=== PATIENT | female | born 1945 | race Caucasian/White ===

== ENCOUNTER → 2019-01-06 | Outpatient (CLI) | payer MEDICARE, MEDICAID, SELFPAY ==
--- NOTE | 2019-01-06 10:19 | BD_ITS ---
STUDY: DUAL ENERGY X-RAY ABSORPTIOMETRY / DXA REASON FOR EXAM: Female, 73 years old. The patient is postmenopausal. No loss of height. TECHNIQUE: Bone Mineral Density (BMD) measurements of lumbar spine and bilateral hips were obtained. COMPARISON: None. FINDINGS: Lumbar Spine (L1-L4): g/cm2 (1.176) / T-score (0.1) / Z-score (1.8) Findings are suggestive of normal bone density with a low fracture risk. Left Femur Total: g/cm2 (0.631) / T-score (-3.0) / Z-score (-1.3) Left Femoral Neck: g/cm2 (0.626) / T-score (-3.0) / Z-score (-1.1) Right Femur Total: g/cm2 (0.613) / T-score (-3.1) / Z-score (-1.4) Right Femoral Neck: g/cm2 (0.66) / T-score (-2.7) / Z-score (-0.8) BD/Dexa Bone Density Study IMPRESSION: The patient is considered osteoporotic as outlined below according to World Abel Organization (WHO) criteria with a high fracture risk. Reference Information: The T-score is the number of standard deviations above or below the standard which is normal for young adults at their peak bone mineral density. The World Health Organization (WHO) interprets the T-scores as follows: Above -1 Normal bone density Between -1 and -2.5 Osteopenia Equal to / or below -2.5 Osteoporosis As a practical clinical guideline, osteopenia may be graded as follows: Mild -1 through -1.5 Moderate -1.6 through -2.0 Severe -2.1 through -2.4 The Z-score is the number of standard deviations above or below age-matched controls. A Z-score of less than -1.5 would be considered abnormal. References: 1. NIH Osteoporosis and Related Bone Diseases http://www.osteo.org 2. International Society for Clinical Densitometry http://www.iscd.org 3. National Osteoporosis Foundation http://www.nof.org Electronically Signed: Alberto Nieto, at 12:46 EDT , Service support ,
== END | disposition home or self-care (01) ==
LOC: OPBD 10:15
PROVIDERS: Family Provider Internal Medicine; PCP Internal Medicine; Referring Provider Internal Medicine; Visit Provider Internal Medicine
DX: Z78.0 Asymptomatic menopausal state (principal)
CPT/HCPCS: 77080

== ENCOUNTER → 2019-05-18 14:03 | Outpatient (CLI) | payer MEDICARE, MEDICAID, SELFPAY ==
[2019-05-18 15:23] LABS: Mucous, Urine 0 SEEN /hpf (<or=2+)
[2019-05-18 15:46] LABS: Color, Urine Yellow (Yellow); Glucose, Dipstick Normal (Normal); Ketone-Dipstick Negative (Negative); Leukocyte Esterase-Dipstick 25 /ul (Negative); Nitrite-Dipstick Negative (Negative); Occult Blood-Urine 10 /ul (Negative); Protein-Dipstick Negative (Negative); Specific Gravity, Urine 1.015 (1.002-1.030); Urine Bilirubin Dipstick Negative (Negative); Urine Clarity Cloudy (Clear); Urine Urobilinogen Normal (Normal); Urine pH 6.5 (5.0 - 8.0)
[2019-05-18 16:12] LABS: Bacteria RARE /hpf (None Seen); Red Blood Cells-Urine 0-5 SEEN /hpf (0-5); Squamous Epithelial Cells - UA 0-5 SEEN /hpf (5-10); White Blood Cells 25-50 SEEN /hpf (0-5)
== END ==
PROVIDERS: Family Provider Internal Medicine; PCP Internal Medicine; Referring Provider Internal Medicine; Visit Provider Internal Medicine
DX: R82.90 Unspecified abnormal findings in urine (principal)
CPT/HCPCS: 81001; 87077; 87086; 87088; 87186

== ENCOUNTER 2019-08-19 09:58 | Outpatient (RCR) | payer MEDICARE, MEDICAID, SELFPAY ==
[2019-07-29 12:59] VITALS: BMI 23.0
--- NOTE | 2019-08-19 11:31 | HP.PTEVAL_ITS ---
Patient's Visit Information MIK CERVANTES is a 74 year old F referred to Physical Therapy by Thierry Salvador NP-C with a diagnosis of UNSPECIFIED INTELLECTUAL DISABILITIES. Date of Evaluation: 08/19/19 Physical Therapist: Parker Waldrop PT, Cert MDT, [facility] - Visit Plan Frequency: 1 VISIT Plan: RECOMMEND CUSTUM MANUAL TILT BACK W/C WITH HEAD REST,REMOVABLE ARM REST,LATERAL STRAPS,WITH CHEST STRAP FOR TRANSPORT, FOOT PLATE WITH STRAP DUE TO PATIENT DEPENDANT WITH TRANSFERS AND NON AMBULATORY AND CONDITION OF CEREBRAL PALSEY, - Subjective Findings: This 74 y/o female who has cerabral palsey presents to physical therapy for w/c Evaluatiion. [facility] Madeleine. Reccommed w/c due to not fitiing appropriatly and old and never fittied or adjusted. Patient is non verbal. Patient is dependant with self hygine,ADLS ,total dependant with transfers without WB . Patient is non-ambulatory. Patient is self feed. Patient doesnt express any pain.Patient has poor comprehension and unable to communicate. Patient is unable to sit up without dependant assist. Patient sleeps in hospital bed.Patient in w/c 10 -12 hrs /day.Patient has no decubi. SOCIAL: Lives in 6 bed retirement - Objective POSTURE: assymtrical leg length ,pelvis posterior pelvic. TRANSFERS: dependant all levels. BED MOBILITY: dependant. BALANCE : absent sitting/standing. TRUNCK CONTROL: ABSENT. SKIN: INTACT. NEURO: intact. MOBILITY: dependant with w/c. MMT: 0/5 BUE/LE ,but able to move arms/legs small movement. PROM: hip flexion 95 degrees,knee 0-100 degrees flexion,abduction 20degrees. dorsiflexion nuetral,shoulder flexion 100 degrees,elbow WFL - Goals Goal 1:: RECOMMEND CUSTOM MANUAL W/C Goal Time Frame: 1 VISIT - Rehabilitation Potential Physical Therapy Diagnosis: This patient will benifit from custom manual w/c due to w/c not fitting appropriately and is dependant with all level transfers,absent balance ,absent trunk contral and non ambualtory. Rehabilitation Potential: Poor - Anticipated Interventions Patient/Client Instruction: Educate patient on: Condition, Plan of Care For the Purpose of:: Other Other: RECOMMEND CUSTUM MANULA W/C Thank you for the opportunity to evaluate your patient. For Medicare and Medicare HMO plans, please review the plan of care and approve it. It will need to be FAXED BACK to us at [phone] for Medicare purposes. For Medicare only, by signing this I certify the plan of care. Please let me know if there are questions or concerns regarding this plan of care. Physician Signature: Date:
== END 2019-08-19 19:00 | disposition home or self-care (01) ==
LOC: PT 09:58
PROVIDERS: Family Provider Internal Medicine; PCP Internal Medicine; Referring Provider Nurse Practitioner Family; Visit Provider Nurse Practitioner Family
DX: F79 Unspecified intellectual disabilities (principal); R53.81 Other malaise
CPT/HCPCS: 97163

== ENCOUNTER → 2020-02-22 12:20 | Outpatient (CLI) | payer MEDICARE, MEDICAID, SELFPAY ==
[2020-02-08 15:06] VITALS: BMI 23.0
--- NOTE | 2020-02-22 12:32 | BI_ITS ---
MAMMOGRAPHY - BILATERAL SCREENING REASON FOR EXAM: Female, 74 years old. Routine annual screening examination. PERTINENT HISTORY: Non-contributory. TECHNIQUE: Digital bilateral breast paul (3D mammographic acquisition) in the CC and MLO projections. 2-D mediolateral oblique (MLO) and craniocaudad (CC) views of both breasts were obtained. CAD: Full Field Digital Mammography with Computer Added Detection was performed. COMPARISON: Comparison is made with prior study dated December 28, 2018. FINDINGS: Breast Composition: There are scattered areas of fibroglandular density. There are no dominant masses or suspicious calcifications. No other significant abnormalities are identified. There has been no significant change since the prior study. BI/SCREEN MAMM (CAD) W/PAUL BILAT IMPRESSION: Stable bilateral screening mammogram. Yearly follow-up mammogram recommended. (A) ASSESSMENT CATEGORY: BIRADS Category 1: Negative. A letter regarding these results will be sent to the patient by the facility within 30 days. Approximately 10% of breast cancers are not detected by mammography. A normal mammogram should not delay biopsy of a clinically suspicious abnormality. [id number] Electronically Signed: Alberto Nieto, at 13:28 EDT , Service support ,
== END ==
PROVIDERS: PCP Internal Medicine; Referring Provider Nurse Practitioner Family; Visit Provider Nurse Practitioner Family
DX: Z12.31 Encounter for screening mammogram for malignant neoplasm of breast (principal)
CPT/HCPCS: 77063; 77067

== ENCOUNTER → 2020-03-20 17:47 | Outpatient (CLI) | payer MEDICARE, MEDICAID, SELFPAY ==
[2020-02-08 15:06] VITALS: BMI 23.0
[2020-03-20 17:48] LABS: Mucous, Urine 0 SEEN /hpf (<or=2+); Red Blood Cells-Urine 0 SEEN /hpf (0-5); White Blood Cells 0 SEEN /hpf (0-5)
[2020-03-20 18:23] LABS: Color, Urine Yellow (Yellow); Glucose, Dipstick Normal (Normal); Ketone-Dipstick Negative (Negative); Leukocyte Esterase-Dipstick Negative /ul (Negative); Nitrite-Dipstick Negative (Negative); Occult Blood-Urine Negative /ul (Negative); Protein-Dipstick Negative (Negative); Specific Gravity, Urine 1.015 (1.002-1.030); Urine Bilirubin Dipstick Negative (Negative); Urine Clarity Sl. Cloudy (Clear); Urine Urobilinogen Normal (Normal); Urine pH 6.5 (5.0 - 8.0)
[2020-03-20 18:31] LABS: Amorphous Sediment 1+; Bacteria 2+ /hpf (None Seen); Squamous Epithelial Cells - UA 0-5 SEEN /hpf (5-10)
== END ==
PROVIDERS: Nurse Practitioner Family; PCP Internal Medicine; Visit Provider Internal Medicine
DX: R30.0 Dysuria (principal)
CPT/HCPCS: 81001; 87086; 87088

== ENCOUNTER → 2020-12-04 10:26 | Outpatient (CLI) | payer MEDICARE, MEDICAID, SELFPAY ==
[2020-12-04 09:59] VITALS: BMI 23.0
[2020-12-04 12:54] LABS: Absolute Lymphocyte Count 1.38 X10^3/uL (0.83-4.51); Absolute Neutrophil Count 5.4 X10^3/uL (2.0-7.7); Basophil# 0.04 X10^3/uL; Basophil% 0.5 % (0-1); Eosinophil# 0.27 X10^3/uL; Eosinophils% 3.5 % (0-5); Hematocrit 36.9 % (37-47); Hemoglobin 11.9 g/dL (12.0-15.0); Lymphocyte # 1.38 X10^3/ul (0.83-4.51); Mean Corp Hgb Conc 32.2 g/dL (32-36); Mean Corpuscular Hgb 29.8 pg (27.0-32.0); Mean Corpuscular Volume 92.3 fL (81-99); Mean Platelet Vol. 9.9 fl (6.2-12.0); Monocyte# 0.55 X10^3/uL; Monocyte% 7.2 % (0-10); NRBC Flagged by Analyzer 0 % (0-5); Neutrophil # 5.39 X10^3/uL (2.7-7.7); Neutrophil % 70.5 % (47-70); Platelet Count 367 K/mm3 (150-450); RBC Distribution Width CV 13.2 % (11.6-14.6); RBC Distribution Width SD 44.8 fl (35.1-43.9); White Blood Count 7.7 K/mm3 (4.4-11.0)
[2020-12-04 13:22] LABS: ALB/GLOB Ratio 0.8 RATIO (0.9-2.4); AST(SGOT) 17 U/L (15-37); Alanine Aminotransfer ALT/SGPT 31 U/L (13-56); Albumin, Serum 3.2 g/dL (3.2-5.0); Alkaline Phosphatase 85 U/L (45-117); Anion Gap 8 (5-15); BUN 13 mg/dL (7-18); Calcium,Total 8.4 mg/dL (8.5-10.1); Chloride 91 mmol/L (98-107); Creatinine, Serum 0.68 mg/dL (0.55-1.02); EST Glomerular Filtration Rate 89 mL/min (>60); Est Glom Filt Rate - Afr Amer 107 mL/min (>60); Glucose 150 mg/dL (74-106); Potassium 3.7 mmol/L (3.5-5.1); Protein, Total 7.2 g/dL (6.4-8.2); Sodium Level 127 mmol/L (136-145); Thyroid Stim Hormone (TSH) 1.31 uIU/mL (0.358-3.74)
[2020-12-04 13:26] LABS: Hemoglobin A1c 5.6 % (3.8-5.6)
== END ==
PROVIDERS: PCP Internal Medicine; Referring Provider Internal Medicine; Visit Provider Internal Medicine
DX: E11.9 Type 2 diabetes mellitus without complications (principal); I10 Essential (primary) hypertension
CPT/HCPCS: 36415; 80053; 83036; 84443; 85025

== ENCOUNTER → 2021-02-22 08:33 | Outpatient (CLI) | payer MEDICARE, MEDICAID, SELFPAY ==
[2020-12-04 09:59] VITALS: BMI 23.0
--- NOTE | 2021-02-22 08:50 | BI_ITS ---
MAMMOGRAPHY - BILATERAL SCREENING REASON FOR EXAM: Female, 75 years old. Routine annual screening examination. PERTINENT HISTORY: Non-contributory. TECHNIQUE: Digital bilateral breast paul (3D mammographic acquisition) in the CC and MLO projections. 2-D mediolateral oblique (MLO) and craniocaudad (CC) views of both breasts were obtained. CAD: Full Field Digital Mammography with Computer Added Detection was performed. COMPARISON: Comparison is made with prior study dated 02/22/2020. FINDINGS: Breast Composition: There are scattered areas of fibroglandular density. There are no dominant masses or suspicious calcifications. No other significant abnormalities are identified. There has been no significant change since the prior study. BI/SCRN MAMM (CAD)W/PAUL BILAT IMPRESSION: Stable bilateral screening mammogram. Yearly follow-up mammogram recommended. (A) ASSESSMENT CATEGORY: BIRADS Category 1: Negative. A letter regarding these results will be sent to the patient by the facility within 30 days. Approximately 10% of breast cancers are not detected by mammography. A normal mammogram should not delay biopsy of a clinically suspicious abnormality. [id number] Electronically Signed: Alberto Nieto MD at 9:39 EDT , Service support ,
== END ==
PROVIDERS: PCP Internal Medicine; Referring Provider Internal Medicine; Visit Provider Internal Medicine
DX: Z12.31 Encounter for screening mammogram for malignant neoplasm of breast (principal)
CPT/HCPCS: 77063; 77067

== ENCOUNTER → 2021-06-04 10:14 | Outpatient (CLI) | payer MEDICARE, MEDICAID, SELFPAY ==
[2021-06-04 12:17] LABS: Absolute Lymphocyte Count 2.71 X10^3/uL (0.83-4.51); Basophil# 0.05 X10^3/uL; Basophil% 0.5 % (0-1); Eosinophil# 0.45 X10^3/uL; Eosinophils% 4.5 % (0-5); Hematocrit 39.7 % (37-47); Hemoglobin 12.2 g/dL (12.0-15.0); Lymphocyte # 2.71 X10^3/ul (0.83-4.51); Lymphocyte % 27.2 % (19-41); Mean Corp Hgb Conc 30.7 g/dL (32-36); Mean Corpuscular Hgb 30.3 pg (27.0-32.0); Mean Corpuscular Volume 98.8 fL (81-99); Mean Platelet Vol. 9.9 fl (6.2-12.0); Monocyte# 0.69 X10^3/uL; Monocyte% 6.9 % (0-10); NRBC Flagged by Analyzer 0 % (0-5); Neutrophil # 6.02 X10^3/uL (2.7-7.7); Neutrophil % 60.6 % (47-70); Platelet Count 369 K/mm3 (150-450); RBC Distribution Width CV 13.2 % (11.6-14.6); RBC Distribution Width SD 48.7 fl (35.1-43.9); Red Blood Count 4.02 M/mm3 (4.2-5.4)
[2021-06-04 12:36] LABS: Vitamin D,25 Hydroxy 29.3 ng/mL
[2021-06-04 12:40] LABS: ALB/GLOB Ratio 0.7 RATIO (0.9-2.4); AST(SGOT) 17 U/L (15-37); Alanine Aminotransfer ALT/SGPT 31 U/L (13-56); Alkaline Phosphatase 91 U/L (45-117); Anion Gap 8 (5-15); BUN 21 mg/dL (7-18); BUN/Creat Ratio 26.8 RATIO (10-20); Calcium,Total 9.3 mg/dL (8.5-10.1); Chloride 98 mmol/L (98-107); Creatinine, Serum 0.78 mg/dL (0.55-1.02); EST Glomerular Filtration Rate 76 mL/min (>60); Est Glom Filt Rate - Afr Amer 92 mL/min (>60); Globulin 4.5 g/dL (2.2-4.2); Glucose 82 mg/dL (74-106); Potassium 4.3 mmol/L (3.5-5.1); Protein, Total 7.5 g/dL (6.4-8.2); Sodium Level 135 mmol/L (136-145); Thyroid Stim Hormone (TSH) 1.36 uIU/mL (0.358-3.74)
== END ==
PROVIDERS: PCP Internal Medicine; Referring Provider Internal Medicine; Visit Provider Internal Medicine
DX: I10 Essential (primary) hypertension (principal); E03.9 Hypothyroidism, unspecified; E55.9 Vitamin D deficiency, unspecified
CPT/HCPCS: 36415; 80053; 82306; 84443; 85025

== ENCOUNTER → 2022-01-07 | Outpatient (CLI) | payer MEDICARE, MEDICAID, SELFPAY ==
[2022-01-07 12:30] LABS: Absolute Lymphocyte Count 2.36 X10^3/uL (0.83-4.51); Absolute Neutrophil Count 5.3 X10^3/uL (2.0-7.7); Basophil# 0.05 X10^3/uL; Basophil% 0.6 % (0-1); Eosinophil# 0.58 X10^3/uL; Eosinophils% 6.5 % (0-5); Hematocrit 37.1 % (37-47); Hemoglobin 11.8 g/dL (12.0-15.0); Lymphocyte # 2.36 X10^3/ul (0.83-4.51); Lymphocyte % 26.6 % (19-41); Mean Corp Hgb Conc 31.8 g/dL (32-36); Mean Corpuscular Volume 97.4 fL (81-99); Mean Platelet Vol. 10.3 fl (6.2-12.0); Monocyte# 0.56 X10^3/uL; Monocyte% 6.3 % (0-10); NRBC Flagged by Analyzer 0 % (0-5); Neutrophil # 5.31 X10^3/uL (2.7-7.7); Neutrophil % 59.8 % (47-70); Platelet Count 339 K/mm3 (150-450); RBC Distribution Width CV 13.2 % (11.6-14.6); RBC Distribution Width SD 46.8 fl (35.1-43.9); Red Blood Count 3.81 M/mm3 (4.2-5.4); White Blood Count 8.9 K/mm3 (4.4-11.0)
[2022-01-07 12:40] LABS: Vitamin D,25 Hydroxy 33.4 ng/mL
[2022-01-07 12:53] LABS: ALB/GLOB Ratio 0.7 RATIO (0.9-2.4); AST(SGOT) 22 U/L (15-37); Alanine Aminotransfer ALT/SGPT 36 U/L (13-56); Albumin, Serum 2.9 g/dL (3.2-5.0); Alkaline Phosphatase 89 U/L (45-117); Anion Gap 9 (5-15); BUN 31 mg/dL (7-18); BUN/Creat Ratio 33.2 RATIO (10-20); Calcium,Total 8.8 mg/dL (8.5-10.1); Chloride 101 mmol/L (98-107); Creatinine, Serum 0.94 mg/dL (0.55-1.02); EST Glomerular Filtration Rate 62 mL/min (>60); Est Glom Filt Rate - Afr Amer 75 mL/min (>60); Globulin 4.2 g/dL (2.2-4.2); Glucose 177 mg/dL (74-106); Potassium 4.2 mmol/L (3.5-5.1); Protein, Total 7.1 g/dL (6.4-8.2); Sodium Level 137 mmol/L (136-145); Thyroid Stim Hormone (TSH) 1.25 uIU/mL (0.358-3.74)
== END | disposition home or self-care (01) ==
LOC: BIMLAB 10:29
PROVIDERS: PCP Internal Medicine; Visit Provider Internal Medicine
DX: E03.9 Hypothyroidism, unspecified (principal); E11.9 Type 2 diabetes mellitus without complications; I10 Essential (primary) hypertension; M81.0 Age-related osteoporosis without current pathological fracture
CPT/HCPCS: 36415; 80053; 82306; 84443; 85025

== ENCOUNTER → 2022-02-25 | Outpatient (CLI) | payer MEDICARE, MEDICAID, SELFPAY ==
--- NOTE | 2022-02-25 10:06 | BI_ITS ---
MAMMOGRAPHY - BILATERAL SCREENING REASON FOR EXAM: Female, 76 years old. Routine annual screening examination. PERTINENT HISTORY: Non-contributory. TECHNIQUE: Digital bilateral breast paul (3D mammographic acquisition) in the CC and MLO projections. 2-D mediolateral oblique (MLO) and craniocaudad (CC) views of both breasts were obtained. CAD: Full Field Digital Mammography with Computer Added Detection was performed. COMPARISON: Comparison is made with prior study dated 02/22/2021 and 02/22/2020. FINDINGS: Breast Composition: There are scattered areas of fibroglandular density. There are no dominant masses or suspicious calcifications. No other significant abnormalities are identified. There has been no significant change since the prior study. BI/SCRN MAMM (CAD)W/PAUL BILAT IMPRESSION: Stable bilateral screening mammogram. Yearly follow-up mammogram recommended. (A) ASSESSMENT CATEGORY: BIRADS Category 1: Negative. A letter regarding these results will be sent to the patient by the facility within 30 days. Approximately 10% of breast cancers are not detected by mammography. A normal mammogram should not delay biopsy of a clinically suspicious abnormality. [id number] Electronically Signed: Alberto Nieto MD at 11:14 EDT ,
--- NOTE | 2022-02-25 10:07 | BD_ITS ---
STUDY: DUAL ENERGY X-RAY ABSORPTIOMETRY / DXA REASON FOR EXAM: Female, 76 years old. OSteoporosis TECHNIQUE: Bone Mineral Density (BMD) measurements of both forearms were obtained. Limited positioning due to the patient''s limitation in positioning. COMPARISON: Comparison is made with prior examination dated 01/06/2019. FINDINGS: Right Forearm: g/cm2 (0.563) / T-score (-0.3) / Z-score (2.5) Left Forearm: g/cm2 (0.535) / T-score (-0.8) / Z-score (1.9) BD/Dexa Bone Density/Append Skel IMPRESSION: The patient is considered normal as outlined below according to World Abel Organization (WHO) criteria with a low fracture risk. Reference Information: The T-score is the number of standard deviations above or below the standard which is normal for young adults at their peak bone mineral density. The World Health Organization (WHO) interprets the T-scores as follows: Above -1 Normal bone density Between -1 and -2.5 Osteopenia Equal to / or below -2.5 Osteoporosis As a practical clinical guideline, osteopenia may be graded as follows: Mild -1 through -1.5 Moderate -1.6 through -2.0 Severe -2.1 through -2.4 The Z-score is the number of standard deviations above or below age-matched controls. A Z-score of less than -1.5 would be considered abnormal. References: 1. NIH Osteoporosis and Related Bone Diseases www osteo.org 2. International Society for Clinical Densitometry www iscd.org 3. National Osteoporosis Foundation www nof.org Electronically Signed: Alberto Nieto MD at 12:24 EDT ,
== END | disposition home or self-care (01) ==
LOC: OPBD 10:03
PROVIDERS: PCP Internal Medicine; Visit Provider Internal Medicine
DX: Z12.31 Encounter for screening mammogram for malignant neoplasm of breast (principal); M81.0 Age-related osteoporosis without current pathological fracture
CPT/HCPCS: 77063; 77067; 77081

== ENCOUNTER → 2022-05-20 | Outpatient (CLI) | payer MEDICARE, MEDICAID, SELFPAY ==
[2022-05-20 15:10] LABS: Absolute Lymphocyte Count 2.34 X10^3/uL (0.83-4.51); Absolute Neutrophil Count 5.3 X10^3/uL (2.0-7.7); Basophil# 0.04 X10^3/uL; Basophil% 0.5 % (0-1); Eosinophil# 0.44 X10^3/uL; Hematocrit 40.8 % (37-47); Hemoglobin 12.7 g/dL (12.0-15.0); Lymphocyte # 2.34 X10^3/ul (0.83-4.51); Lymphocyte % 26.7 % (19-41); Mean Corp Hgb Conc 31.1 g/dL (32-36); Mean Corpuscular Hgb 31.1 pg (27.0-32.0); Mean Corpuscular Volume 99.8 fL (81-99); Mean Platelet Vol. 10.7 fl (6.2-12.0); Monocyte# 0.62 X10^3/uL; Monocyte% 7.1 % (0-10); NRBC Flagged by Analyzer 0 % (0-5); Neutrophil # 5.29 X10^3/uL (2.7-7.7); Neutrophil % 60.4 % (47-70); Platelet Count 306 K/mm3 (150-450); RBC Distribution Width CV 13.2 % (11.6-14.6); RBC Distribution Width SD 48.8 fl (35.1-43.9); Red Blood Count 4.09 M/mm3 (4.2-5.4); White Blood Count 8.8 K/mm3 (4.4-11.0)
[2022-05-20 19:40] LABS: ALB/GLOB Ratio 0.7 RATIO (0.9-2.4); AST(SGOT) 24 U/L (15-37); Alanine Aminotransfer ALT/SGPT 34 U/L (13-56); Albumin, Serum 3.1 g/dL (3.2-5.0); Alkaline Phosphatase 89 U/L (45-117); Anion Gap 11 (5-15); BUN 27 mg/dL (7-18); BUN/Creat Ratio 31.4 RATIO (10-20); Calcium,Total 9.8 mg/dL (8.5-10.1); Chloride 102 mmol/L (98-107); Creatinine, Serum 0.86 mg/dL (0.55-1.02); EST Glomerular Filtration Rate 68 mL/min (>60); Est Glom Filt Rate - Afr Amer 82 mL/min (>60); Globulin 4.2 g/dL (2.2-4.2); Glucose 144 mg/dL (74-106); Potassium 4.5 mmol/L (3.5-5.1); Protein, Total 7.3 g/dL (6.4-8.2); Sodium Level 138 mmol/L (136-145)
[2022-05-20 20:42] LABS: Hemoglobin A1c 6.6 % (3.8-5.6)
== END | disposition home or self-care (01) ==
LOC: BIMLAB 11:39
PROVIDERS: PCP Internal Medicine; Visit Provider Internal Medicine
DX: I10 Essential (primary) hypertension (principal); E11.9 Type 2 diabetes mellitus without complications; E03.9 Hypothyroidism, unspecified; M81.0 Age-related osteoporosis without current pathological fracture
CPT/HCPCS: 36415; 80053; 83036; 85025

== ENCOUNTER → 2022-05-22 | Outpatient (CLI) | payer MEDICARE, MEDICAID, SELFPAY ==
[2022-05-22 16:07] LABS: Vitamin D,25 Hydroxy 44.3 ng/mL
[2022-05-22 16:13] LABS: Thyroid Stim Hormone (TSH) 1.21 uIU/mL (0.358-3.74)
== END | disposition home or self-care (01) ==
LOC: BIMLAB 14:17
PROVIDERS: PCP Internal Medicine; Visit Provider Internal Medicine
DX: E03.9 Hypothyroidism, unspecified (principal); E55.9 Vitamin D deficiency, unspecified
CPT/HCPCS: 82306; 84443

== ENCOUNTER → 2022-08-15 | Outpatient (CLI) | payer MEDICARE, MEDICAID, SELFPAY | END | disposition home or self-care (01) | LOC: LABSPEC 11:32 | PROVIDERS: PCP Internal Medicine; Referring Provider Physician Assistant; Visit Provider Physician Assistant | DX: R05.9 Cough, unspecified (principal); R41.82 Altered mental status, unspecified | CPT/HCPCS: 87635; U0003; U0005 ==

== ENCOUNTER → 2022-11-26 | Outpatient (CLI) | payer MEDICARE, MEDICAID, SELFPAY ==
[2022-11-26 12:43] LABS: Hematocrit 33.3 % (37-47); Hemoglobin 11.1 g/dL (12.0-15.0); Mean Corp Hgb Conc 33.3 g/dL (32-36); Mean Corpuscular Hgb 31.8 pg (27.0-32.0); Mean Corpuscular Volume 95.4 fL (81-99); Mean Platelet Vol. 9.8 fl (6.2-12.0); Platelet Count 344 K/mm3 (150-450); RBC Distribution Width CV 13.8 % (11.6-14.6); Red Blood Count 3.49 M/mm3 (4.2-5.4); White Blood Count 8.6 K/mm3 (4.4-11.0)
[2022-11-26 13:16] LABS: Vitamin B12 1533 pg/mL (211-911)
[2022-11-26 13:34] LABS: Carbamazepine (Tegretol) 7.5 ug/mL (4.0-12.0)
[2022-11-26 13:53] LABS: ALB/GLOB Ratio 0.7 RATIO (0.9-2.4); AST(SGOT) 23 U/L (15-37); Alanine Aminotransfer ALT/SGPT 37 U/L (13-56); Albumin, Serum 2.8 g/dL (3.2-5.0); Alkaline Phosphatase 91 U/L (45-117); Anion Gap 6 (5-15); BUN 11 mg/dL (7-18); BUN/Creat Ratio 17.6 RATIO (10-20); Calcium,Total 8.5 mg/dL (8.5-10.1); Chloride 96 mmol/L (98-107); Creatinine, Serum 0.63 mg/dL (0.55-1.02); EST Glomerular Filtration Rate 98 mL/min (>60); Est Glom Filt Rate - Afr Amer 118 mL/min (>60); Globulin 3.8 g/dL (2.2-4.2); Glucose 237 mg/dL (74-106); Potassium 3.7 mmol/L (3.5-5.1); Protein, Total 6.6 g/dL (6.4-8.2); Sodium Level 130 mmol/L (136-145); Thyroid Stim Hormone (TSH) 1.17 uIU/mL (0.358-3.74)
[2022-11-28 19:07] LABS: HEPATITIS B SURFACE AG Negative (Negative); Hep C Antibodies Non Reactive (Non Reactive); Hepatitis A IgM Antibody Negative (Negative); Hepatitis B Core AB IgM Negative (Negative); Vitamin B1, Thiamine 156.5 nmol/L (66.5-200.0)
[2022-11-30 16:07] LABS: Vitamin D 1,25-Dihydroxy <5.0 pg/mL (24.8-81.5)
== END | disposition home or self-care (01) ==
LOC: BIMLAB 10:53
PROVIDERS: PCP Internal Medicine; Referring Provider Psychiatry & Neurology Neurology; Visit Provider Psychiatry & Neurology Neurology
DX: G80.9 Cerebral palsy, unspecified (principal); G40.909 Epilepsy, unspecified, not intractable, without status epilepticus; B18.1 Chronic viral hepatitis B without delta-agent; I10 Essential (primary) hypertension; E55.9 Vitamin D deficiency, unspecified
CPT/HCPCS: 36415; 80053; 80074; 80156; 82140; 82607; 82652; 82746; 84425; 84439; 84443; 85027

== ENCOUNTER → 2022-12-29 | Outpatient (CLI) | payer MEDICARE, MEDICAID, SELFPAY | END | disposition home or self-care (01) | LOC: PSN 08:32 | PROVIDERS: PCP Internal Medicine; Referring Provider Psychiatry & Neurology Neurology; Visit Provider Psychiatry & Neurology Neurology | DX: G40.909 Epilepsy, unspecified, not intractable, without status epilepticus (principal) | CPT/HCPCS: 95819 ==

== ENCOUNTER → 2023-02-27 | Outpatient (CLI) | payer MEDICARE, MEDICAID, SELFPAY ==
--- NOTE | 2023-02-27 10:09 | BI_ITS ---
MAMMOGRAPHY - BILATERAL SCREENING 3-D TOMOSYNTHESIS REASON FOR EXAM: Female, 77 years old. Breast Cancer Screening PERTINENT HISTORY: No significant family history. TECHNIQUE: 2-D mammograms and 3-D Tomosynthesis of the breast (s) were performed. CAD was performed. COMPARISON: 02/25/2022 FINDINGS: The breast composition is composed of scattered fibroglandular density. Scattered benign calcifications are seen. No dense spiculated masses or suspicious microcalcifications are identified. No architectural distortion is identified. There is no skin thickening or retraction. There has been no significant change since the prior study. BI/SCRN MAMM (CAD)W/PAUL BILAT IMPRESSION: No mammographic signs of malignancy. Routine yearly mammograms recommended. ASSESSMENT CATEGORY: BIRADS Category 2: Benign. A letter regarding these results will be sent to the patient by the facility within 30 days. FOLLOW UP RECOMMENDATION: Yearly follow up mammogram recommended. (A) Approximately 10% of breast cancers are not detected by mammography. A normal mammogram should not delay biopsy of a clinically suspicious abnormality. Electronically Signed: Nikita Mcwilliams MD at 12:50 EDT ,
== END | disposition home or self-care (01) ==
PROVIDERS: PCP Internal Medicine; Referring Provider Internal Medicine; Visit Provider Internal Medicine
DX: Z12.31 Encounter for screening mammogram for malignant neoplasm of breast (principal)
CPT/HCPCS: 77063; 77067

== ENCOUNTER 2024-03-16 08:02 | Outpatient (RCR) | payer MEDICARE, MEDICAID, SELFPAY ==
[2024-03-16 08:10] VITALS: BP 127/58; PULSE 108; RESP 18; TEMP 36.1
--- NOTE | 2024-03-16 11:51 | PCM.WC.HP ---
History of Present Illness Date of Service: 03/16/24 Chief Complaint: Follow-up on left ischium History of Wound: 78-year-old white female nonverbal with CP, chronically gets open areas on her left ischium and left sacral back area. At this point they are closed but they have been using Neosporin ointment and Telfa pads on her. She lives in a long term with 5 other residents. Skin is very supple and she is in good condition. They states she does not eat well but is taking supplements at this time. These open areas happen on and off and they just need some direction how to take care of it. [facility] Medical History Flu vaccine need Osteoporosis Health care maintenance Weight loss, non-intentional Decubitus skin ulcer Hyponatremia Hypothyroidism history of chemical labotomy Anxiety Profound intellectual disabilities Unspecified mood [affective] disorder Cerebral palsy Vitamin deficiency Vision problems Thyroid disease Seizures Hypertension H/O emotional problems Diabetes Cataracts, bilateral Home Medications ?Medication ?Instructions ?Recorded ?Last Taken ?Type acetaminophen 325 mg tablet 650 mg PO Q6H PRN fever or pain 12/21/18 Unknown History bisacodyl 10 mg rectal suppository 10 mg CA DAILY PRN constipation 12/21/18 Unknown History pen needle, diabetic 31 gauge x #200 ea 08/05/21 Unknown Rx 10/23 (Comfort EZ Pen [place]) metformin 500 mg tablet,extended 500 mg PO QPM #90 tabs 01/07/22 Unknown Rx release 24hr (osmotic) multivitamin 1 tab PO DAILY #90 tabs 01/17/22 Unknown Rx lisinopril 30 mg tablet See Rx Instructions .Route 04/08/22 Unknown Rx .COMPLEX #30 tabs lovastatin 20 mg tablet See Rx Instructions .Route 04/08/22 Unknown Rx .COMPLEX #30 tabs levothyroxine 50 mcg capsule 50 mcg PO DAILY #90 caps 07/14/22 Unknown Rx mecobalamin (vitamin B12) 1,000 1,000 mcg sublingual DAILY #90 tabs 07/14/22 Unknown Rx mcg disintegrating tablet,sublingual aripiprazole 10 mg tablet 10 mg PO QHS #90 tabs 08/05/22 Unknown Rx alendronate 70 mg tablet (Fosamax) 70 mg PO QWEEK #14 tabs 01/24/23 Unknown Rx docusate sodium 100 mg capsule 100 mg PO DAILY #90 caps 09/03/22 Unknown Rx (Colace) amino acids-protein hydrolysate 15 ml PO DAILY 02/22/24 Unknown History gram-72 kcal/30 mL oral liquid calcium carb-vit D3-minerals 600 1 tab PO BID 02/22/24 Unknown History mg calcium-400 unit tablet carbamazepine 100 mg chewable 100 mg PO DAILY #30 tabs 02/22/24 Unknown Rx tablet diazepam 2 mg tablet 1 mg PO QDAY agitation 02/22/24 Unknown History ergocalciferol (vitamin D2) 1,250 1,250 mcg PO 2XW #8 caps 02/22/24 Unknown Rx mcg (50,000 unit) capsule guaifenesin 100 mg/5 mL oral liquid 200 mg PO Q4H PRN congestion 02/22/24 Unknown History lamotrigine 25 mg disintegrating 50 mg (2 x 25 mg) PO BID #120 tabs 02/22/24 Unknown Rx tablet melatonin 10 mg capsule 10 mg PO HS 02/22/24 Unknown History Allergy/AdvReac Type Severity Reaction Status Date / Time Penicillins Allergy Unknown unknown Verified 03/16/24 08:31 ampicillin Allergy Unknown Verified 03/16/24 08:31 Family History Other Family history unknown Surgical History No history of previous surgery Social History Smoking Status: Never smoker second hand exposure: No alcohol intake: never substance use type: does not use what type of physical activity do you participate in: none seatbelt use: always ROS Constitutional Constitutional: Reports systems reviewed and no addt'l complaints, except as documented Eyes Eyes: Reports systems reviewed and no addt'l complaints, except as documented ENT HEENT: Reports systems reviewed and no addt'l complaints, except as documented Cardiovascular Cardiovascular: Reports systems reviewed and no addt'l complaints, except as documented Respiratory/Chest Respiratory/Chest: Reports systems reviewed and no addt'l complaints, except as documented Gastrointestinal Gastrointestinal: Reports systems reviewed and no addt'l complaints, except as documented Genitourinary Genitourinary: Reports systems reviewed and no addt'l complaints, except as documented Musculoskeletal Musculoskeletal: Reports systems reviewed and no addt'l complaints, except as documented Integumentary Integumentary: Reports systems reviewed and no addt'l complaints, except as documented and other Details: Chronic areas on left ischium and left lower sacral area that open and close. Neurologic Neurologic: Reports systems reviewed and no addt'l complaints, except as documented Psychiatric Psychiatric: Reports systems reviewed and no addt'l complaints, except as documented Endocrine Endocrinology: Reports systems reviewed and no addt'l complaints, except as documented Hematologic/Lymphatic Hematologic/Lymphatic: Reports systems reviewed and no addt'l complaints, except as documented Allergic/Immunologic Allergic/Immunologic: Reports systems reviewed and no addt'l complaints, except as documented Vital Signs Vital Signs Vital Signs: 03/16/24 08:10 Temperature 97 F L Temperature Source Temporal Pulse Rate 108 H Respiratory Rate 18 Blood Pressure 127/58 H Blood Pressure Mean 81 Blood Pressure Source Monitor Weight Weight: 107 lb 14.314 oz Physical Exam Const oriented x3 General Appearance: cooperative Exam Limitations: no limitations HEENT normocephalic Head and Scalp: normal to inspection Neck full ROM Resp normal respiratory effort Effort and Inspection: able to speak in complete sentences Auscultation: clear to auscultation bilaterally Cardio regular rate and regular rhythm Palpation: normal PMI Rate: regular rate Rhythm: regular rhythm GI Palpation: soft and no hepatosplenomegaly Back/Spine Cervical Spine: cervical ROM normal Thoracic Spine / Upper Back: normal to inspection Lumbar Spine / Lower Back: normal to inspection Extremity normal to inspection General Extremity: normal exam except as noted Skin no rashes or lesions noted Neuro oriented x3 Psych Appearance: grossly normal Speech: normal speech Thought Content: normal thought content Judgement: judgement good Debridement Note Debridement Note No debridement was completed: No debridement was completed today Post-Debridement Measurements and Additional Note: Post-Debridement Measurements/Treatment - Nurse 1 - General Ulcer Assessment Start: 03/16/24 08:10 Freq: Status: Active Protocol: BERNADETTE Activity Type Activity Date Activity User E-sign Co-sign Detail Recorded Client Recorded Date Recorded By Document 03/16/24 08:10 DL [email or web address] 03/16/24 08:28 DL 03/16/24 08:10 - Today's Visit Information Type of service Initial Visit Arrival Mode Wheelchair Transfer Assistance Manual Transfer Assist (Other) x2 Patient Identification Verified (Name & Yes ) Height and Weight Weight 107 lb 14.314 oz Weight in Pounds 107.9 lbs Vital Signs Temperature (97.8 F-99.1 F) 97 F L Temperature Source Temporal Pulse Rate (60-100) 108 H Pulse Location Monitor Respiratory Rate (12-18) 18 Respiratory rate source Observation Blood Pressure (90/60-120/80) 127/58 H Blood Pressure Mean 81 Source Monitor Pain Scale: 0-10 Numeric Is Patient Pain Free? Yes Communication Assessment Preferred language [place] Able to Read No Able to Write No Caregiver Communication Skills Unable To Impairment Follow Commands Right Hearing Abillity Normal Left Hearing Abillity Normal Visual Assistive Devices None Teaching Assessment Barriers to Learning Unable to Comprehend Readiness To Learn Poor Willingness to Engage in Self Management Low Activies Readiness to Engage in Self Management Low Activities Anxiety Level Calm Cooperation Cooperative Perception Confused Interest in Health Problem Uninterested Smoking Status Never smoker Is Patient Diabetic Yes Functional Assessment List Device(s) with Patient WC Bound, No Verbal Culture/Zoroastrian/Employee Relations Administrator Cultural/Zoroastrian Needs that may affect No Treatment Plan Would you allow our hospital order packer or packager to No meet you for the purpose of spiritual/ emotional support? Employee Relations Administrator to contact place of yazidism No WC - Nurse 1 - General Ulcer Measurement Start: 03/16/24 08:10 Freq: Status: Active Protocol: Activity Type Activity Date Activity User E-sign Co-sign Detail Recorded Client Recorded Date Recorded By Document 03/16/24 08:10 DL [email or web address] 03/16/24 08:28 DL 03/16/24 08:10 Wound Center Nurse 1 #1 L Ischial -Current Size (cm) - Length 0.1 -Current Size (cm) - Width 0.1 -Current Size (cm) - Depth 0.1 -Total Square Cm 0.01 -Photo Taken Yes -Classification - Thickness Partial Thickness -Exudate Amt None Present -Wound Margin Flat & Intact -Granulation Amt Large (67-100%) -Granulation Quality [place] -Necrosis Amt None Present (0 %) -Structure Exposed N/A -Texture (Sophie-wound Skin Appearance) Scarring -Ulcer Cleansing Rinsed/ Irrigated with Saline -Foul Odor after Cleansing No WC - Nurse 2 - General Ulcer CM Notes Start: 03/16/24 08:10 Freq: Status: Active Protocol: Activity Type Activity Date Activity User E-sign Co-sign Detail Recorded Client Recorded Date Recorded By Document 03/16/24 08:49 DS 1 03/16/24 08:50 DS 03/16/24 08:49 Wound Center Nurse 2 -Time 08:49 -Wound/Ulcer Outcome Healed- Epithelialized Pain Scale: 0-10 Numeric Is Patient Pain Free? Yes WC - Nurse 3 - General Ulcer D/C NN Start: 03/16/24 08:10 Freq: Status: Active Protocol: Activity Type Activity Date Activity User E-sign Co-sign Detail Recorded Client Recorded Date Recorded By Document 03/16/24 08:57 DS 1 03/16/24 08:57 DS 03/16/24 08:57 Wound Care Center Nurse 3 #1 L Ischial -Primary Dressing Applied Mepilex Border -Mepilex Border 1 Pain Scale: 0-10 Numeric Is Patient Pain Free? Yes WC - Visit Discharge Discharge Condition Stable Ambulatory Status Wheelchair Transportation Private Auto Medication Reconcilliation completed & Yes provided to patient/care provider Clinical Summary of Care Provided Yes Assessment/Plan Assessment/Plan (1) Left ischial pressure sore: CODE(S): L89.329 - Pressure ulcer of left buttock, unspecified stage QUALIFIERS: Pressure injury stage: stage 1 Qualified Code(s): L89.321 - Pressure ulcer of left buttock, stage 1 PLAN: May use the A&E ointment on when there is no open area otherwise other suggestions was to pad and protect with an absorbent dressing when she is up and around to protect the skin and may use the A&E ointment at night and leave her diaper free. Any more open areas call us return otherwise patient is discharged from the wound center (2) Cerebral palsy: CODE(S): G80.9 - Cerebral palsy, unspecified QUALIFIERS: Cerebral palsy type: spastic quadriplegic Qualified Code(s): G80.0 - Spastic quadriplegic cerebral palsy
--- NOTE | 2024-03-31 09:17 | WC ---
PHOTO 03/16/24 LEFT BUTTOCK(I)
== END 2024-03-16 13:58 | disposition home or self-care (01) ==
LOC: WC 08:02
PROVIDERS: PCP Internal Medicine; Referring Provider Internal Medicine; Visit Provider Nurse Practitioner
DX: L89.321 Pressure ulcer of left buttock, stage 1 (principal); G80.9 Cerebral palsy, unspecified; E11.9 Type 2 diabetes mellitus without complications; I10 Essential (primary) hypertension; E03.9 Hypothyroidism, unspecified; M81.0 Age-related osteoporosis without current pathological fracture; Z79.83 Long term (current) use of bisphosphonates; Z79.84 Long term (current) use of oral hypoglycemic drugs; Z79.890 Hormone replacement therapy; Z79.899 Other long term (current) drug therapy
CPT/HCPCS: 99212; G0463

== ENCOUNTER 2025-03-18 14:00 | Emergency (ER) | payer MEDICARE, MEDICAID, SELFPAY ==
--- OUTSIDE RECORDS SUMMARY | 2025-03-18 14:39 | XMS RPT_ITS | CCD ---
Author Organization [facility] CliniSyne Care Team Providers Care Chief Technician X Ray Name Role Phone Luis Daniel James Unavailable Unavailable Unavailable Unavailable Unavailable Luis Daniel James Primary Care Provider Luis Daniel Miner Admitting Unavailable Luis Daniel James Attending Unavailable Luis Daniel James Admitting Unavailable Luis Daniel James Attending Unavailable Luis Daniel James Admitting Unavailable Luis Daniel James Attending Unavailable Luis Daniel James Primary Care Provider Goldie Mobley Primary Care Provide r Goldie Mobley MD Primary Care Prov ider Goldie Mobley MD Primary Care Provider [phone] Dr. Goldie Mobley Primary Care Provider [phone] Dr. Goldie Mobley Attending Provider [phone] Dr. Goldie Mobley Referring Provider [phone] Pending Provider Unavailable Unavailable Goldie Mobley MD Primary Care Prov ider Dr. Goldie Mobley Primary Care Provider [phone]) Dr. Goldie Mobley Attending Provider [phone] Dr. Goldie Mobley Referring Provider [phone] Free, Text Entry Unavailable Unavailable Félix Cartwright Unavailable Dr. Goldie Mobley Primary Care Provider [phone] Dr. Goldie Mobley Attending Provider [phone] Dr. Alana Mobleybe Referring Provider [phone] BALDEMAR Olivares Attending Provider Unavailab Goldie Menchaca MD Primary Care Provider [phone] Itz, Dr. Candelario Primary Care Provider [phone] Itz, Dr. Candelario Referring Provider [phone] BALDEMAR Olivares Attending Provider Unavailab Dr. Cedrick Navas Attending Provider Dr. Goldie Mobley Attending Provider [phone] Itz, Dr. Candelario Primary Care Provider [phone] Itz, Dr. Candelario Referring Provider [phone] Thierry Salvador Attending Unavailable Pending, Provider Primary Care Unavailable Al Tenisha Delgadillo, Dr. Murphy Admitting Unava ilable Akil Delgadillo, Dr. Murphy Referring Unava ilable Pending, Provider Primary Care Unavailable CARISA, DO CORKY ELIZAEBTH Attending Unava ilable Pending, Provider Primary Care Unavailable Dr. Lazaro Handy Attending Unavailabl gio Mobely MD, Goldie Baxter Primary Care Prov ider Oberhauser DO, Shanda L Primary Care Provider Oberhauser DO, Shanda L Primary Care Provider Oberhauser DO, Shanda L Primary Care Provider [phone] GOLDIE MOBLEY Primary Care Unav ailable IRMA VICTORIA Attending Unavail able Oberhauser DO, Shanda L Primary Care Provider Oberhauser DO, Shanda L Unavailable [phone] Prosper CAN, Mansi Unavailable Unavailable OBERHAUSER, SHANDA L Primary Care Unavailable OBERHAUSER, SHANDA L Primary Care Unavailable OBERHAUSER, SHANDA L Primary Care Unavailable OBERHAUSER, SHANDA L Primary Care Unavailable OBERHAUSER, SHANDA L Primary Care Unavailable OBERHAUSER, SHANDA L Primary Care Unavailable Kip DO, Tremayne R. Primary Care Provider [phone] Donald Hernandez MD Unavailable KIP, TREMAYNE R. Admitting Unavailable DHAVAL SHELTON L Attending Unavailable KIP, TREMAYNE R. Referring Unavailable KIP, TREMAYNE R. Primary Care Unavailable KIP, TREMAYNE R. Primary Care Unavailable KIP, TREMAYNE R. Admitting Unavailable BILLY DHAVAL L Attending Unavailable KIP, TREMAYNE R. Referring Unavailable Kip DO, Tremayne Primary Care Provider COOPERRIDER II, BONI H Attending Unavailabl e COOPERRIDER II, BONI H Referring Unavailabl e KIP, TREMAYNE Primary Care Unavailable Oberhauser DO, Shanda L Unavailable Mansi Cheng RN Unavailable TANA YAN Attending Unavailable OBERHAUSER, SHANDA L Primary Care Unavailable TANA YAN Attending Unavailable OBERHAUSER, SHANDA L Primary Care Unavailable TANA YAN Attending Unavailable OBERHAUSER, SHANDA L Primary Care Unavailable OBERHAUSER, SHANDA L Attending Unavailable OBERHAUSER, SHANDA L Primary Care Unavailable OBERHAUSER, SHANDA L Attending Unavailable OBERHAUSER, SHANDA L Referring Unavailable OBERHAUSER, SHANDA L Primary Care Unavailable OBERHAUSER, SHANDA L Attending Unavailable OBERHAUSER, SHANDA L Referring Unavailable OBERHAUSER, SHANDA L Primary Care Unavailable TANA YAN Attending Unavailable OBERHAUSER, SHANDA L Primary Care Unavailable CLARA JONES Attending Unavailable Kip DO, Tremayne Primary Care Provider CLARA JONES Attending Unavailable CLARA JONES Referring Unavailable KIP, TREMAYNE Primary Care Unavailable OBERHAUSER, SHANDA L Primary Care Unavailable ARMANDO, HAFIZ A Admitting Unavailable ARMANDO, HAFIZ A Attending Unavailable FÉLIX CARTWRIGHT Consulting Unavailable OBERHAUSER, SHANDA L Primary Care Unavailable ARMANDO, HAFIZ A Admitting Unavailable ARMANDO, HAFIZ A Attending Unavailable NISSA HAAS Consulting Unavailable Itz VILLALOBOS, Dr. Candelario Referring Provider [phone] Dr. Cedrick Alejo MD Attending Provider Dr. Shanda Huizar DO Primary Care Provider Cedrick Alejo Attending Unavailable Oleghe, Efewongbe Primary Care Unavailable Oleghe, Efewongbe Referring Unavailable Oleghe, Efewongbe Referring Unavailable Oberhauser, Shanda Primary Care Unavailable Cedrick Alejo Attending Unavailable Maurice OLEARY, Nayeli Attending Unavailable Oberhauser, Shanda Primary Care Unavailable Oberhauser, Shanda Referring Unavailable KAYKAY BESS Attending Unavailab le OLEGHE, EFEWONGBE SAHIL Primary Care Unav ailable KIP, TREMAYNE R. Attending Unavailable KIP, TREMAYNE R. Primary Care Unavailable KIP, TREMAYNE R. Primary Care Unavailable KIP, TREMAYNE R. Attending Unavailable KIP, TREMAYNE R. Attending Unavailable KIP, TREMAYNE R. Primary Care Unavailable CECILY JR., SOTO Attending Unavailable OLEGHE, EFEWONGBE SAHIL Primary Care Unav ailable KIP, TREMAYNE R. Attending Unavailable KIP, TREMAYNE R. Primary Care Unavailable KIP, TREMAYNE R. Attending Unavailable KIP, TREMAYNE R. Primary Care Unavailable CECILY JR., SOTO Attending Unavailable KIP, TREMAYNE R. Primary Care Unavailable KIP, TREMAYNE R. Attending Unavailable KPI, TREMAYNE R. Primary Care Unavailable KIP, TREMAYNE R. Attending Unavailable KIP, TREMAYNE R. Primary Care Unavailable CECILY JR., SOTO Attending Unavailable KIP, TREMAYNE R. Primary Care Unavailable CECILY JR., SOTO Attending Unavailable OLEGHE, EFEWONGBE SAHIL Primary Care Unav ailable Provider, Ed Physician Emergency Provider Unavai lable Allergies Allergy Classification Reported Allergen(s) Allergy Type Date of Onset Reaction(s) Facility Penicillins (antibiotic) (2 sources) Ampicillin Drug Allergy 6 [facility] (20 sources) ampicillin; Translations: [AMPICILLIN] Propensity to adverse reactions to drug 5 Unknown [facility] Work Phone: (20 sources) Penicillins; Translations: [PENICILLINS] Propensity to adverse reactions to drug 5 unknown [facility] Work Phone: (1 source) Penicillins Drug Allergy 5 Unknown [facility] (16 sources) Penicillins Propensity to adverse reactions to drug 5 Unknown [facility] (20 sources) Amoxicillin; Translations: [AMOXICILLIN] Drug Allergy [address] [facility] (20 sources) Penicillin; Translations: [PENICILLIN] Drug Allergy [address] [facility] (20 sources) Lisinopril; Translations: [LISINOPRIL] Drug Allergy 5 [facility] Work Phone: (10 sources) Penicillins Propensity to adverse reactions to drug 5 Unknown [facility] (1 source) Ampicillin Drug Allergy 5 [facility] (1 source) Lisinopril Drug Allergy 5 [facility] (1 source) Penicillins Drug allergy (disorder) 5 [facility] Medications Current Medications Medication Drug Class(es) Dates Sig (Normalized) Sig (Original) acetaminophen (20 sources) Start: 08-30-2024 take 1 tablet by mouth every four hours as needed acetaminophen (Tylenol) tablet 650 mg Start: 08-30-2024 take 1 tablet by isabell every four hours as needed acetaminophen (Tylenol) tablet 650 mg Start: 04-18-2024 take 1 tablet by isabell every four hours as needed acetaminophen (Tylenol) tablet 650 mg Start: 12-21-2018 take 2 tablets by mo ut every six hours as needed for pain Acetaminophen 325 mg tablet Active 650 mg PO EVERY 6 HOURS as needed for fever or pain December 21, 2018 12:00am Start: 12-21-2018 take 650 mg by mouth every six hours Acetaminophen Active 650 MG PO EVERY 6 HOURS December 21, 2018 12:00am acetaminophen (T YLENOL) 650 MG suppository Insert into the rectum every 4 (four) hours as needed for fever or pain INSERT 1 SUPPOSITORY RECTALLY EVERY 4 HOURS NEEDED FOR FEVER >38 C OR MODERATE PAIN . Active take 2 tablets by mo uth every four hours as needed for fever acetaminophen (TYLENOL) 325 MG tablet Take 2 (two) tablets (650 mg total) by mouth every 4 (four) hours as needed for fever 2 TABS = 650 MG BY MOUTH EVERY 4 HOURS NEEDED FEVER *MAY GIVE SUPP IF TAB NOT GIVEN* . Active take 1 tablet by isabell th every four hours as needed acetaminophen (TYLENOL) 325 MG tablet Take 1 (one) tablet (325 mg total) by mouth every 4 (four) hours as needed . Active take 325 mg by mouth every four hours as needed acetaminophen (TYLENOL) 325 mg/10.15 mL soln Take 325 mg by mouth every 4 hours as needed. Active ACETAMINOPHEN RE CTAL by RECTAL route. Active End: 07-16-2023 acetaminophen (Tylenol 8 Rolando r) 650 mg ER tablet Take 325 mg by mouth every 6 hours if needed. 0 07/16/2023 Discontinued (Therapy completed) take 325 mg by mouth every six hours as needed Tylenol 8 Hour ; 325 milligram(s) orally every 6 hours, As Needed Quantity: 0 Refills: 0 Ordered: 09-Aug-2022 Rosangela Hernandez Generic Substitution Allowed ACETAMINOPHEN RE CTAL by RECTAL route. 0 Active Comment on above: Take 325 mg by mouth every 4 hours as needed. by RECTAL route. Take 650 mg by mouth every 6 hours as needed. acyclovir 0.05 mg/mg topical ointment (16 sources) Herpesvirus Nucleoside Analog DNA Polymerase Inhibitor, Herpes Simplex Virus Nucleoside Analog DNA Polymerase Inhibitor, Herpes Zoster Virus Nucleoside Analog DNA Polymerase Inhibitor Start: 09-06-2024 End: 09-10-2024 acyclovir (Zovirax) 5 % ointment Indications: HSV infection Apply 1 Application topically 5 times a day for 4 days. Space applications every 3 hours. 5 g 09/06/2024 09/10/2024 Active acyclovir (ZOVIR AX) 5 % ointment Apply topically 6 (six) times a day . Active albuterol 0.83 mg/ml inhalation solution (17 sources) beta2-Adrenergic Agonist Start: 10-25-2024 take 1 dose by inhalation every four hours as needed for wheezing albuterol (PROVENTIL) 2.5 mg /3 mL (0.083 %) nebulizer solution INHALE 1 VIAL USING NEBULIZER EVERY FOUR HOURS NEEDED FOR WHEEZING 10/25/2024 Active Start: 06-13-2019 End: 07-29-2019 take 2.5 mg by inhalation every four hours as needed for wheezing Albuterol Sulfate 2.5 mg /3 mL (0.083 %) solution for nebulization Discontinued 2.5 mg INHALATION Q4H as needed for shortness of breath or wheezing 75 0 June 13, 2019 1:00am July 29, 2019 1:58pm take 2.5 mg by inhal ation every four hours as needed for wheezing albuterol (PROVENTIL) 2.5 mg/3 mL (0.083 %) nebulizer solution Take 3 mL (2.5 mg) by nebulization every 4 (four) hours as needed for wheezing. INHALE 1 VIAL USING NEBULIZER EVERY 4 HOURS NEEDED FOR WHEEZING Active albuterol 2.5 mg /3 mL (0.083 %) nebulizer solution Take 3 mL (2.5 mg) by nebulization. Active albuterol 0.833 mg/ml / ipratropium bromide 0.167 mg/ml inhalation solution (1 source) Anticholinergic, beta2-Adrenergic Agonist Start: 08-30-2024 take 3 mL by inhalation every six hours as needed 3 mL, nebulization, Every 6 hours PRN, wheezing, Starting on Thu08/30/24 at 1330 alendronic acid 70 mg oral tablet (20 sources) Bisphosphonate Start: 02-24-2024 End: 02-07-2025 alendronate (FOSAMAX) 70 MG tablet 1 (one) tablet (70 mg total) by Per G Tube route every 7 days GIVE 1 TABLET BY PEG EVERY WEEK *30 MIN BEFORE 1ST FOOD/GAMAL/MED; AVOID LYING DOWN X30 MIN AFTER . 12 tablet 3 02/07/2025 Active Start: 02-24-2024 alendronate (F OSAMAX) 70 MG tablet Take 1 (one) tablet (70 mg total) by mouth every 7 days . 02/24/2024 Active Start: 01-06-2019 End: 09-02-2022 take 1 tablet by mouth every week Alendronate (Fosamax) 70 mg tablet Discontinued 70 mg PO EVERY WEEK 14 March 13, 2022 8:00am September 02, 2022 10:49am End: 10-06-2024 take 75 mL by mouth in the morning alendronate (FOSAMAX) 70 mg/75 mL solution Take 75 mL (70 mg total) by mouth every 7 days Take in the morning with a full glass of water, on an empty stomach, and do not take anything else by mouth or lie down for the next 30 min. . 10/06/2024 Discontinued alendronate (Fos amax) 70 mg tablet Take 1 tablet (70 mg) by mouth every 7 days. Active take 70 mg by mouth in the morning alendronate (FOSAMAX) 70 mg/75 mL solution Take 70 mg by mouth every 7 days Take in the morning with a full glass of water, on an empty stomach, and do not take anything else by mouth or lie down for the next 30 min. . 0 Active Comment on above: Take 70 mg by mouth once each week. Amino Acids-Protein Hydrolys 15-72 gram-kcal/30 mL liquid (2 sources) Start: 02-22-20 Amino Acids-Protein Hydrolys 15-72 gram-kcal/30 mL liquid Active mL PO DAILY February 22, 2024 12:00am 30cc daily amLODIPine 5 mg oral tablet (20 sources) Dihydropyridine Calcium Channel Nena Start: 12-28-19 take 2 tablets by mouth once daily amLODIPine (NORVASC) 5 MG tablet Indications: Primary hypertension Take 2 (two) tablets (10 mg total) by mouth daily . 90 tablet 3 12/27/2024 Active Start: 10-03-2016 End: 11-16-2025 take 1 tablet by mouth once daily amLODIPine (NORVASC) 5 MG tablet Indications: Primary hypertension Take 1 (one) tablet (5 mg total) by mouth daily . 90 tablet 3 12/21/2024 12/27/2024 Discontinued (Reorder (Suppress CancelRx Message to Pharmacy)) AMLODIPINE BESYL ATE (AMLODIPINE ORAL) Take by mouth. Active AMLODIPINE BESYL ATE (AMLODIPINE ORAL) Take by mouth. 0 Active Comment on above: Take by mouth. ARIPiprazole 10 mg oral tablet (20 sources) Atypical Antipsychotic Start: 08-30-2024 take 10 mg by mouth once daily 10 mg, oral, Nightly, First dose on Thu08/30/24 at 2099 Start: 04-19-2024 take 10 mg by mouth once daily 10 mg, oral, Nightly, First dose on Thu04/19/24 at 2099 Start: 02-18-2021 End: 11-16-2024 take 1 tablet by mouth at bedtime Aripiprazole 10 mg tablet Discontinued 10 mg PO AT BEDTIME 90 2 March 25, 2022 2:46pm July 30, 2022 2:23pm Start: 12-23-2019 End: 02-18-2021 take 1 tablet by mouth at bedtime Aripiprazole (Abilify) 15 mg tablet Discontinued 15 mg PO AT BEDTIME 60 2 October 23, 2020 8:46am February 18, 2021 1:04pm Start: 12-21-2018 End: 12-23-2019 take 1 tablet by mouth once daily Aripiprazole 20 mg tablet Discontinued 20 mg PO DAILY December 21, 2018 12:00am December 23, 2019 4:15pm take 0.5 tablet by m outh once daily ARIPiprazole (ABILIFY) 20 MG tablet Take 0.5 (one-half) tablet (10 mg total) by mouth daily . Active take 10 mg by mouth once daily A RIPiprazole (ABILIFY) 20 MG tablet Take 10 mg by mouth daily . 0 Active Comment on above: Take 20 mg by mouth once daily. Take 20 mg by mouth. benoxinate hydrochloride 4 mg/ml / fluorescein sodium 3 mg/ml ophthalmic solution (4 sources) Diagnostic Dye Start: 11-23-2024 End: 11-23-2024 fluorescein-benoxi argelia 0.3-0.4 % 1 drop (FLURESS) Start: 11-23-2024 End: 11-23-2024 1 drop, BOTH EYES, DIRECT ED, Starting on Thu11/23/24 at 1000, Until Thu11/23/24 at 2159, Administer for applanation tonometry. In the event of a Fluress shortage, administer [place]-Fluor 1 drop into both eyes as directed for applanation tonometry Start: 11-18-2023 End: 11-18-2023 fluorescein-benoxinate 0.3-0 .4 % 1 Drop (FLURESS) Start: 11-07-2021 End: 11-07-2021 fluorescein-benoxinate 0.25- 0.4 % 1 Drop (FLURESS) bisacodyl 10 mg rectal suppository (20 sources) Stimulant Laxative Start: 12-21-2018 Bisacodyl 1 0 mg suppository Active 10 mg RC DAILY as needed for constipation December 21, 2018 12:00am bisacodyl 10 mg rectal suppository ; rectal every 48 hours, As Needed Quantity: 0 Refills: 0 Ordered: 09-Aug-2022 Rosangela Hernandez Generic Substitution Allowed Comment on above: 10 mg by RECTAL rout e once daily as needed. calcium carbonate 1500 mg / cholecalciferol 0.01 mg oral tablet (20 sources) Vitamin D Start: 12-22-2024 calcium carbonate-vitamin D3 (Calcium with Vitamin D) 600 mg-10 mcg (400 unit) per tablet 1 (one) tablet by Per G Tube route 2 (two) times a day . 180 tablet 3 12/22/2024 Active Start: 02-22-2024 Calcium Carbon ate-Vit D3-Min 600 mg calcium- 400 unit tablet Active 1 {tbl} PO TWICE A DAY February 22, 2024 12:00am Start: 12-22-2023 End: 09-01-2024 take 1 tablet by mouth twice daily in the evening calcium carbonate-vitamin D3 600 mg-10 mcg (400 unit) tablet Indications: Healthcare maintenance Take 1 tablet by mouth 2 times a day. 180 tablet 3 08/15/2024 1:47 PM EST 12/22/2023 09/01/2024 Discontinued (Therapy completed) Start: 06-06-2021 End: 01-21-2022 Calcium Carbonate-Vitamin D3 (Oyster Shell Calcium-Vit D3) 500 mg-5 mcg (200 unit) tablet Discontinued 1 {tbl} PO TWICE A DAY 90 3 November 12, 2021 4:27pm January 21, 2022 4:22pm calcium-vitamin D (OS-EMEKA +D) 500 mg(1,250mg) -200 unit per tablet 1 (one) tablet by Per G Tube route 2 (two) times a day TAKE 1 TABLET BY PEG TUBE TWICE DAILY . Active calcium-vitamin D (OS-EMEKA +D) 500 mg(1,250mg) -200 unit per tablet take by Oral route. Active take 1 tablet by isabell th twice daily calcium carbonate-vitamin D3 600 mg-10 mcg (400 unit) tablet Take 1 tablet by mouth 2 times a day. Active Calcium Carbonate / vitamin D3 (7 sources) CALCIUM CARBONAT E/VITAMIN D3 (CALCIUM + D ORAL) Take by mouth. Active CALCIUM CARBONAT E/VITAMIN D3 (CALCIUM + D ORAL) Take by mouth. 0 Active Comment on above: Take by mouth. calcium chloride 0.0014 meq/ml / potassium chloride 0.004 meq/ml / sodium chloride 0.103 meq/ml / sodium lactate 0.028 meq/ml injectable solution (3 sources) Start: End: take 100 mL intravenously every hour 100 mL/hr, intravenous, Continuous, Starting on Thu12/26/24 at 0700, For 1 day, Preprocedure Start: 04-22-2024 End: 04-22-2024 intravenous, Continuous PRN, Starting on Thu04/22/24 at 0802, Anesthesia Intraprocedure Start: 10-05-2023 End: 10-06-2023 lactated Ringer's infusion carBAMazepine 100 mg chewable tablet (20 sources) Mood Stabilizer, Anti-epileptic Agent Start: 08-30-2024 take 100 mg by mouth once daily 100 mg, oral, Daily, First dose on Thu08/30/24 at 1215 Start: 04-19-2024 take 100 mg by mouth once daily 100 mg, oral, Nightly, First dose on Thu04/19/24 at 2100 Start: 06-11-2023 End: 01-31-2025 take 1 tablet by mouth once daily Carbamazepine 100 mg tablet,chewable Active 100 mg PO DAILY 30 January 31, 2025 12:39pm Start: 09-30-2017 End: 06-11-2023 take 1 tablet by mouth twice daily Carbamazepine 100 mg tablet,chewable Discontinued 100 mg PO TWICE A DAY 180 September 03, 2022 1:19pm April 08, 2023 1:28pm carBAMazepine (T EGretol) 100 mg chewable tablet 1 (one) tablet (100 mg total) by Per G Tube route daily GIVE 1 TABLET BY PEG TUBE ONCE DAILY FOR SEIZURES . Active take 1 tablet by isabell th every twelve hours carBAMazepine (TEGretol) 100 mg chewable tablet Chew 1 tablet (100 mg) every 12 hours. 0 Active cyanocobalamin, vitamin B-12 , (VITAMIN B-12 INJECTION) (7 sources) cyanocobalamin, vitamin B-12, (VITAMIN B-12 INJECTION) by INJECTION(UNSPECIFIED PARENTERAL ROUTES) route. Active cyanocobalamin, vitamin B-12, (VITAMIN B-12 INJECTION) by INJECTION(UNSPECIFIED PARENTERAL ROUTES) route. 0 Active Comment on above: by INJECTION(UNSPECI FIED PARENTERAL ROUTES) route. Daily-Catarina, with folic acid, 400 mcg tablet (3 sources) Start: 07-14-2023 Daily-Catarina, with folic acid, 400 mcg tablet 07/14/2023 Active Start: 07-14-2023 Daily-Catarina, wi th folic acid, 400 mcg tablet diazePAM 2 mg oral tablet (20 sources) Benzodiazepine Start: 01-17-2025 take 0.5 tablet by mouth once daily diazePAM (VALIUM) 2 MG tablet Indications: Nonintractable epilepsy without status epilepticus, unspecified epilepsy type (HCC) Take 0.5 (one-half) tablet (1 mg total) by mouth daily . 15 tablet 2 01/17/2025 Active Start: 08-30-2024 2.5 mg, g-tube , Daily, First dose on Thu08/30/24 at 1215 Start: 02-22-2024 take 1 mg by mouth once daily Diazepam 2 mg tablet Active 1 mg PO daily February 22, 2024 11:57am Intellectual disability Unspecified intellectual disabilities agitation Start: 03-25-2022 End: 02-22-2024 take 1 mg by mouth twice daily Diazepam 2 mg tablet Di scontinued 1 mg PO TWICE A DAY 60 0 May 06, 2022 1:28pm February 22, 2024 12:09pm Intellectual disability Unspecified intellectual disabilities agitation Start: 03-25-2022 End: 05-06-2022 take 1 mg by mouth twice daily Diazepam Discontinued 1 MG PO TWICE A DAY 60 March 31, 2022 4:10pm May 06, 2022 1:29pm Start: 12-21-2018 End: 03-25-2022 take 1 mg by mouth once daily as needed Diazepam 2 mg tablet Discontinued 1 mg PO DAILY as needed December 21, 2018 12:00am June 13, 2019 11:54am Start: 12-21-2018 End: 03-25-2022 take 2 mg by mouth at bedtime Diazepam Discontinued 2 MG PO AT BEDTIME December 21, 2018 12:00am March 25, 2022 2:47pm Start: 12-21-2018 End: 06-13-2019 take 1 mg by mouth once daily Diazepam Discontinued 1 MG PO DAILY December 21, 2018 12:00am June 13, 2019 11:54am Start: 11-18-2013 End: 10-20-2024 take 0.5 tablet by mouth once daily diazePAM (VALIUM) 2 MG tablet Indications: Nonintractable epilepsy without status epilepticus, unspecified epilepsy type (HCC) Take 0.5 (one-half) tablet (1 mg total) by mouth daily . 15 tablet 2 10/20/2024 Active take 0.5 tablet by m outh every twelve hours diazePAM 2 mg oral tablet ; 0.5 tab(s) orally every 12 hours Quantity: 0 Refills: 0 Ordered: 09-Aug-2022 Lazaro Nieves Generic Substitution Allowed Comment on above: Take 2 mg by mouth e very 6 hours as needed. diphenhydrAMINE (1 source) Histamine-1 Receptor Antagonist Start: take 25 mg intravenously every six hours as needed 25 mg, intravenous, Every 6 hours PRN, itching, Starting on Thu08/30/24 at 1136, If giving IV push, max rate of 25 mg/min. docusate sodium 10 mg/ml oral suspension (20 sources) Start: docusate sodium (Colace) 50 mg/5 mL oral liquid Indications: Chronic idiopathic constipation GIVE 10 ML (100MG) PER PEG TUBE ONCE DAILY *CYCLE* 300 mL 11 09/21/2024 Active Start: 06-21-2024 docusate sodiu m (Colace) 50 mg/5 mL oral liquid Indications: Chronic idiopathic constipation TAKE 10 mL per peg tube once daily 100 mL 11 08/15/2024 1:46 PM EST 06/21/2024 Active Start: 04-23-2024 take 100 mg by mouth once spring y 100 mg, oral, Daily, First dose on 04/23/24 at 1030 Start: 04-17-2021 End: 09-01-2024 take 1 capsule by mouth once daily Docusate Sodium (Colace) 100 mg capsule Discontinued 100 mg PO DAILY 90 March 06, 2022 8:47am September 03, 2022 1:20pm docusate (COLACE ) 50 mg/5 mL liquid 10 mL (100 mg total) by Per G Tube route daily GIVE 10 ML(100 MG) PER PEG TUBE ONCE DAILY . Active take 10 mL by mouth once daily d ocusate (COLACE) 50 mg/5 mL liquid Take 10 mL (100 mg total) by mouth daily . Active take 1 capsule by [facility] twice daily docusate sodium (COLACE) 100 MG capsule Take 1 (one) capsule (100 mg total) by mouth 2 (two) times a day . Active Comment on above: Take 100 mg by mouth . 0.4 ml enoxaparin sodium 100 mg/ml prefilled syringe (2 sources) Low Molecular Weight Heparin Start: inject 40 mg by subcutaneous injection every twenty-four hours 40 mg, subcutaneous, Every 24 hours, First dose on Thu08/30/24 at 1215, Indications: deep vein thrombosis prevention Start: 04-18-2024 inject 30 mg by subc utaneous injection every twenty-four hours 30 mg, subcutaneous, Every 24 hours, First dose on Thu04/18/24 at 2100, Indications: deep vein thrombosis prevention ergocalciferol 1.25 mg oral capsule (14 sources) Provitamin D2 Compound Start: 02-22-2024 End: 01-31-2025 Ergocalciferol (Vitamin D2) 1,250 mcg (50,000 unit) capsule Active 1250 ug PO TWICE A WEEK 03 20January 31, 2025 12:39pm take 1 capsule by [facility] two times weekly ergocalciferol (Vitamin D-2) 1.25 MG (50 000 UT) capsule Take 1 capsule (1.25 mg) by mouth 2 times a week. Active 2 ml famotidine 10 mg/ml injection (2 sources) Histamine-2 Receptor Antagonist Start: 08-30-2024 20 mg, intravenous, Administer over 2 Minutes, Every 12 hours scheduled, First dose on Thu08/30/24 at 1200 Start: 08-30-2024 End: 08-30-2024 40 mg, intravenous, Administ er over 2 Minutes, Once, On Thu08/30/24 at 0645, For 1 dose fluconazole 150 mg oral tablet (10 sources) Azole Antifungal Start: 01-13-2024 End: 10-06-2024 take 1 tablet by mouth once daily fluconazole (DIFLUCAN) 150 MG tablet Take 1 (one) tablet (150 mg total) by mouth daily . 01/13/2024 10/06/2024 Discontinued fluticasone propionate 0.05 mg/actuat metered dose nasal spray (1 source) Corticosteroid Start: 08-30-2024 2 spray, Each Nostril, Daily, First dose on Thu08/30/24 at 1200, Shake gently. Before first use, prime pump (press 6 times until fine spray appears). After use, clean tip and replace cap. furosemide 20 mg oral tablet (14 sources) Loop Diuretic Start: 12-21-2024 furosemide (LA SIX) 20 MG tablet 1 (one) tablet (20 mg total) by Per G Tube route daily . 90 tablet 3 12/21/2024 Active Start: 10-12-2024 furosemide (LA SIX) 20 MG tablet 10/12/2024 Active Start: 10-12-2024 furosemide (LA SIX) 20 MG tablet 1 (one) tablet (20 mg total) by Per G Tube route daily GIVE 1 TABLET BY PEG TUBE ONCE DAILY . 10/12/2024 Active furosemide (LASI X) 20 mg/2 mL soln 20 mg. Active gastrostomy tube (FEEDING TU BES MISC) (16 sources) gastrostomy tube (FEEDING TUBES MISC) by Per G Tube route 75 ML PRE & POST BOLUS FEEDING VIA G-TUBE WITH EACH FEEDING . Active gastrostomy tube (FEEDING TUBES MISC) by Per G Tube route GIVE 20 ML PRE & POST MED ADMINISTRATION VIA G-TUBE ON THURSDAY WITH ADDITIONAL THURSDAY MED . Active gastrostomy tube (FEEDING TUBES MISC) by Per G Tube route GIVE 20 ML WATER PRE & POST MEDICATION VIA G-TUBE . Active gastrostomy tube (FEEDING TUBES MISC) by Per G Tube route JEVITY 1.5 KCAL/ML : 1 CARTON (237 ML) FOUR TIMES DAILY 6AM, 12 PM, 5 PM, 10 PM . Active guaiFENesin 20 mg/ml oral so lution (20 sources) Start: 08-30-2024 100 mg, g-tube , Daily, First dose on Thu08/30/24 at 1215 Start: 06-28-2024 guaiFENesin (C hest Congestion Relief) 100 mg/5 mL syrup Indications: Subacute cough TAKE 10ML BY MOUTH EVERY 4 HOURS NEEEDED FOR COUGH *DR JAMES FOR REFILLS [phone]* 180 mL 1 06/30/2024 9:57 AM EST 06/28/2024 Active Start: 02-22-2024 take 10 mL by mouth once daily as needed for congestion Guaifenesin 100 mg/5 mL liquid Active 200 mg PO Q4H as needed for congestion February 22, 2024 12:00am Take 10ml by mouth daily Every 4 hours as needed for cough Comment on above: Take 10 mL by mouth q 4 HR. 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 *DR. MOBLEY FOR [phone]* at bedtime; Start: 05-22-2022 take 0.5 tablet by m outh once daily at bedtime Hydroxyzine Hcl Active 12.5 MG PO AT BEDTIME 60 May 22, 2022 9:39am TAKE 1/2 TABLET BY MOUTH DAILY AT BEDTIME FOR INSOMNIA. *DR. MOBLEY FOR [phone]* at bedtime; Start: 02-18-2021 End: 05-22-2022 take 1 tablet by mouth once daily at bedtime Hydroxyzine Hcl 25 mg tablet Discontinued 25 mg PO AT BEDTIME 60 2 May 21, 2022 10:50am May 22, 2022 9:40am Mood disorder Unspecified mood [affective] disorder anxiety TAKE 1 TABLET BY MOUTH DAILY AT BEDTIME DX: MOOD DISORDER *DR. MOBLEY FOR [phone]* at bedtime; Start: 02-18-2021 End: 01-09-2022 take 1 tablet by mouth once daily at bedtime Hydroxyzine Hcl Discontinued 0 .ROUTE AT BEDTIME 60 July 11, 2021 11:30am January 09, 2022 10:20am TAKE 1 TABLET BY MOUTH DAILY AT BEDTIME DX: MOOD DISORDER *DR. MOBLEY FOR [phone]* at bedtime; Start: 06-27-2020 End: 02-18-2021 take 1 tablet by mouth once daily at bedtime Hydroxyzine Hcl Discontinued 0 .ROUTE .COMPLEX June 27, 2020 6:17pm February 18, 2021 1:04pm TAKE 1 TABLET BY MOUTH DAILY AT BEDTIME DX: MOOD DISORDER *DR. MOBLEY FOR [phone]* Start: 12-21-2018 End: 02-18-2021 take 1 tablet by mouth once daily at bedtime Hydroxyzine Hcl 50 mg tablet Discontinued 0 .ROUTE .COMPLEX 08 06June 27, 2020 6:17pm February 18, 2021 1:04pm TAKE 1 TABLET BY MOUTH DAILY AT BEDTIME DX: MOOD DISORDER *DR. MOBLEY FOR [phone]* Start: 12-21-2018 End: 06-27-2020 take 1 tablet by mouth at bedtime Hydroxyzine Hcl 50 mg tablet Discontinued 50 mg PO AT BEDTIME December 21, 2018 12:00am June 27, 2020 6:18pm hydrOXYzine (JOELLEN RAX) 25 MG tablet 1 (one) tablet (25 mg total) by Per G Tube route 3 (three) times a day GIVE 1 TABLET PER PEG TUBE THREE TIMES DAILY DX: ANXIETY . Active End: 12-13-2024 take 0.5 tablet by mouth once daily hydrOXYzine (ATARAX) 50 MG tablet Take 0.5 (one-half) tablet (25 mg total) by mouth nightly . 12/13/2024 Discontinued (Formulary change) take 1 tablet by isabell th four times daily hydrOXYzine HCL (Atarax) 25 mg tablet Take 1 tablet (25 mg) by mouth 4 times a day. Active Comment on above: Take 50 mg by mouth three times daily as needed. insulin aspart, human 100 unt/ml injectable solution (7 sources) Insulin Analog insulin aspart U -100 (NOVOLOG U-100 INSULIN ASPART) 100 unit/mL Inject subcutaneously daily with breakfast. Active Comment on above: Inject subcutaneousl y daily with breakfast. insulin glargine 100 unt/ml injectable solution (15 sources) Insulin Analogue Start: 04-20-2017 insulin glargine (LANTUS) 100 unit/mL injection 4 Units by SUBDERMAL route. 04/20/2017 Active Start: 04-20-2017 insulin glargi ne (LANTUS) 100 unit/mL injection Indications: Diabetic autonomic neuropathy associated with type 2 diabetes mellitus (HCC) Inject 4 (four) Units under the skin nightly. 10 mL 11 04/20/2017 Active End: 04-20-2017 insulin glargine (LANTUS) 10 0 unit/mL injection Inject under the skin nightly. 04/20/2017 Discontinued Comment on above: 4 Units by SUBDERMAL route. lamoTRIgine 25 mg disintegrating oral tablet (20 sources) Mood Stabilizer, Anti-epileptic Agent Start: 08-30-2024 take 50 mg by mouth twice daily 50 mg, oral, 2 times daily, First dose on Thu08/30/24 at 1215 Start: 04-18-2024 take 50 mg by mouth twice spring y 50 mg, oral, 2 times daily, First dose on Thu04/18/24 at 2100 Start: 09-14-2023 lamoTRIgine (L aMICtal) 25 MG TChD 2 (two) tablets (50 mg total) by Per G Tube route daily GIVE 2 TABLETS (50 MG) BY PEG TUBE TWICE DAILY . 09/14/2023 Active Start: 09-14-2023 lamoTRIgine (L aMICtal) 25 MG TChD 09/14/2023 Active Start: 08-13-2023 End: 01-31-2025 take 2 tablets by mouth twice daily Lamotrigine 25 mg tablet,disintegrating Active 50 mg PO TWICE A DAY 120 January 31, 2025 12:39pm Start: 04-08-2023 End: 08-13-2023 take 1 tablet by mouth twice daily, then take 2 tablets by mouth twice daily Lamotrigine 25 mg tablet,disintegrating Discontinued 25 mg .ROUTE .COMPLEX 120 April 08, 2023 12:00am August 13, 2023 1:12pm Take 1 tablet orally twice daily for 1 week then 2 tablets twice daily thereafter. lamoTRIgine (TRIPP ICTAL) 25 mg tablet Take 50 mg by mouth. Active Comment on above: Take 50 mg by mouth. 1 ml LORazepam 2 mg/ml injection (1 source) Benzodiazepine Start: take 1 mg intravenously every six hours as needed 1 mg, intravenous, Administer over 5 Minutes, Every 6 hours PRN, seizures, Starting on Thu04/19/24 at 0908, Maximum rate of 2 mg/min. losartan potassium 100 mg oral tablet (20 sources) Angiotensin 2 Receptor Nena Start: End: take 1 tablet by mouth once daily losartan (COZAAR) 100 MG tablet Indications: Primary hypertension Take 1 (one) tablet (100 mg total) by mouth daily . 90 tablet 3 11/17/2024 Active Start: 09-19-2024 End: 11-18-2024 take 1 tablet by mouth once daily losartan (COZAAR) 50 MG tablet Indications: Primary hypertension Take 1 (one) tablet (50 mg total) by mouth daily . 30 tablet 1 09/19/2024 10/17/2024 Discontinued (Reorder (Suppress CancelRx Message to Pharmacy)) Start: 09-06-2024 End: 10-11-2025 take 1 tablet by mouth once daily losartan (Cozaar) 25 mg tablet Indications: Primary hypertension Take 1 tablet (25 mg) by mouth once daily. 100 tablet 3 09/15/2024 12:26 PM EST 09/06/2024 11/28/2024 Discontinued (Med List Cleanup) melatonin 10 mg disintegrating oral tablet (20 sources) Start: 09-19-2024 melatonin 10 m g tablet,disintegrating Indications: Insomnia, unspecified type GIVE 1 TABLET BY PEG TUBE ONCE DAILY *OK TO CHARGE* 30 tablet 10 09/19/2024 Active Start: 02-22-2024 take 1 capsule by [facility] at bedtime Melatonin 10 mg capsule Active 10 mg PO BEDTIME February 22, 2024 12:00am Start: 11-10-2023 melatonin 10 m g Tab 10 mg by Per G Tube route daily GIVE 1 TABLET BY PEG TUBE ONCE DAILY . 11/10/2023 Active Start: 11-10-2023 take 1 tablet by mouth once da gm melatonin 10 mg Tab Take 10 mg by mouth daily . 11/10/2023 Active 24 hr metFORMIN hydrochloride 500 mg extended release oral tablet (20 sources) Biguanide Start: 12-04-2023 End: 11-28-2024 take 1 tablet by mouth once daily at mealtime metFORMIN XR 500 mg 24 hr tablet Indications: Controlled type 2 diabetes mellitus without complication, with long-term current use of insulin Take 1 tablet (500 mg) by mouth once daily in the evening. Take with meals. 30 tablet 11 12/04/2023 11/28/2024 Discontinued (Therapy completed) Start: 01-07-2022 take 1 tablet by isabell once daily in the evening Metformin 500 mg tablet extended release 24hr Active 500 mg PO EVERY EVENING 90 3 January 07, 2022 12:00am Start: 06-27-2020 End: 01-07-2022 take 2 tablets by mouth once daily at mealtime Metformin Discontinued 0 .ROUTE .COMPLEX 60 May 14, 2021 10:31am January 07, 2022 10:03am GIVE 2 TABLETS (1000MG) BY MOUTH ONCE DAILY WITH MEAL *DR. MOBLEY FOR RF [phone]* Start: 12-21-2018 End: 06-27-2020 take 2 tablets by mouth twice daily Metformin 500 mg tablet Discontinued 1000 mg PO TWICE A DAY December 21, 2018 12:00am June 27, 2020 6:18pm Start: 12-21-2018 End: 06-27-2020 take 1000 mg by mouth twice daily Metformin Discontinued 1000 MG PO TWICE A DAY December 21, 2018 12:00am June 27, 2020 6:18pm Start: 04-19-2014 End: 01-07-2022 take 2 tablets by mouth once daily at mealtime Metformin 500 mg tablet Discontinued 0 .ROUTE .COMPLEX 60 May 14, 2021 10:31am January 07, 2022 10:03am GIVE 2 TABLETS (1000MG) BY MOUTH ONCE DAILY WITH MEAL *DR. MOBLEY FOR RF [phone]* Start: 04-19-2014 End: 09-19-2024 take 1 tablet by mouth once daily at breakfast metFORMIN (GLUCOPHAGE) 500 MG tablet Take 1 (one) tablet (500 mg total) by mouth daily with breakfast . 04/19/2014 09/19/2024 Discontinued Start: 04-19-2014 take 2 tablets by mo [facility] twice daily metFORMIN (GLUCOPHAGE) 500 MG tablet Take 2 tablets by mouth 2 (two) times a day. 0 04/19/2014 Active take 1 tablet by isabell twice daily at mealtime metFORMIN (GLUCOPHAGE) 500 mg tablet Take 500 mg by mouth twice daily with meals. Active take 1 tablet by isabell once daily metFORMIN XR 500 mg 24 hr tablet Take 1 tablet (500 mg) by mouth once daily. 0 Active Comment on above: Take 500 mg by mouth twice daily with meals. methylPREDNISolone 40 mg injection (12 sources) Corticosteroid Start: 09-01-2024 40 mg, intravenous, 2 times daily, First dose (after last modification) on Thu09/01/24 at 0900 Start: 08-30-2024 End: 08-31-2024 take 40 mg intravenously every six hours 40 mg, intravenous, Every 6 hours, First dose on Thu08/30/24 at 1200 Start: 06-13-2019 End: 07-29-2019 take 1 tablet by mouth once Methylprednisolone (Medrol (Arnie)) 4 mg tablets,dose pack Discontinued 0 PO per package directions June 13, 2019 1:00am July 29, 2019 1:58pm PO PER PKG DIR Multiple Vitamins with Minerals oral capsule (2 sources) take 1 capsule by mo [facility] every twenty-four hours Multiple Vitamins with Minerals oral capsule ; orally every 24 hours Quantity: 0 Refills: 0 Ordered: 09-Aug-2022 Rosangela Hernandez Generic Substitution Allowed multivit #31-smigdme-KOV-chrom 2.5-200-1 mg-mg-mg cap (7 sources) multivit #53-gvanhzi-IGH-chrom 2.5-200-1 mg-mg-mg cap Take by mouth. Active multivit #33-mfo [id number]-jljrc 2.5-200-1 mg-mg-mg cap Take by mouth. 0 Active Comment on above: Take by mouth. Multivitamin preparation (7 sources) Start: 01-17-2022 take 1 tablet by mouth once daily Multivitamin Active 1 TABLET PO DAILY January 16, 2022 11:00pm Start: 01-17-2022 take 1 tablet by isabell once daily Multivitamin Active 1 TABLET PO DAILY January 17, 2022 12:00am Multivitamin Tablet (3 sources) take 1 tablet by isabell once daily at mealtime multivitamin (THERAGRAN) per tablet take 1 tablet by oral route every day with food. Active Multivitamin tablet (2 sources) Start: 01-17-2022 Multivitamin tablet Active 1 {tbl} PO DAILY 90 January 17, 2022 12:00am Start: 01-17-2022 Multivitamin t ablet Active 1 {tbl} PO DAILY January 17, 2022 12:00am mupirocin 0.02 mg/mg topical ointment (20 sources) RNA Synthetase Inhibitor Antibacterial Start: 04-18-2024 End: 08-30-2024 apply 1 dose topically twice daily Topical, 2 times daily, First dose on Thu04/18/24 at 1415, Apply to skin NONFORMULARY (16 sources) NONFORMULARY PLEASURE TRAY: OFFER PLEASURE TRAY (PUREED FOODS/HONEY THICK LIQUIDS) AT MIDDAY ASSISTED BY ALL STAFF . Active NONFORMULARY OLI HOSE: APPLY OLI HOSE TO BOTHER LOWER LEGS IN AM, REMOVE IN PM . Active NONFORMULARY CHRISTIE CK BLOOD SUGAR ONCE A MONTH . Active NONFORMULARY CHRISTIE CK BLOOD PRESSURE DAILY. UPDATE NURSE IF SBP (TOP NUMBER) UNDER 100 OR IF SBP (TOP NUMBER) OVER 180. HOLD LOSARTAN IF SBP (TOP NUMBER) UNDER 100 . Active nut.tx.imp.renal fxn,lac-lilibeth e (PRO-STAT RC ORAL) (7 sources) nut.tx.imp.renal fxn,lac-free (PRO-STAT RC ORAL) Take by mouth. Active nut.tx.imp.renal fxn,lac-free (PRO-STAT RC ORAL) Take by mouth. 0 Active Comment on above: Take by mouth. nystatin 100 unt/mg topical powder (2 sources) Polyene Antifungal Start: 07-25-2024 End: 08-04-2024 nystatin (Mycostatin) 100,000 unit/gram powder Indications: Mathew infection Apply 1 Application topically 2 times a day for 10 days. 60 g 07/25/2024 08/04/2024 Active Start: 01-26-2024 End: 02-09-2024 take 5 mL by mouth four times daily nystatin (Mycostatin) 100,000 unit/mL suspension Indications: Thrush Take 5 mL (500,000 Units) by mouth 4 times a day for 14 days. Swish in mouth and spit out. 280 mL 01/26/2024 02/09/2024 Active ondansetron ODT (Zofran-ODT) disintegrating tablet 4 mg (2 sources) Start: 08-30-2024 take 1 tablet by mouth every eight hours as needed ondansetron ODT (Zofran-ODT) disintegrating tablet 4 mg Start: 04-18-2024 take 1 tablet by isabell th every eight hours as needed ondansetron ODT (Zofran-ODT) disintegrating tablet 4 mg oxygen (O2) therapy (2 sources) Start: 08-30-2024 inhalation, Co ntinuous PRN - O2/gases, other, Starting on Thu08/30/24 at 1318, Cool mist aerosol/ wean as tolerated may run on room air, Device: Aerosol mask, FIO2: Other, Custom Value: May use room air, Keep O2 Sat Above: 90% Start: 04-18-2024 End: 04-24-2024 inhalation, Continuous PRN - O2/gases, other, Starting on Thu04/18/24 at 0929, Device: Nasal Cannula, Rate in liters per minute: 2 LPM polyethylene glycol 3350 66801 mg powder for oral solution (1 source) Osmotic Laxative Start: 04-18-2024 17 g, oral, D aily, First dose on Thu04/18/24 at 1415, Bowel Regimen - for prevention of constipation. pravastatin sodium 20 mg oral tablet (2 sources) HMG-CoA Reductase Inhibitor Start: 08-30-2024 take 20 mg by mouth once daily 20 mg, oral, Nightly, First dose on Thu08/30/24 at 2100 Start: 04-18-2024 take 20 mg by mouth once daily 20 mg, oral, Nightly, First dose on Thu04/18/24 at 2100 sodium chloride 1000 mg oral tablet (20 sources) Start: 09-22-2024 take 1 tablet by mouth twice daily at mealtime sodium chloride 1,000 mg TbSO Indications: Hyponatremia Take 1 (one) tablet (1,000 mg total) by mouth 2 (two) times a day with meals . 60 tablet 11 09/22/2024 Active Start: 09-20-2024 sodium chlorid e soluble tablet 1 g Take 1,000 mg by mouth. 09/20/2024 Active Start: 08-30-2024 End: 08-31-2024 Starting on Thu08/31/24 at 1 014, For 1 dose, Created by cabinet override Start: 08-30-2024 1 g, g-tube, D wendy, First dose on Thu08/30/24 at 1215 Start: 08-30-2024 End: 08-30-2024 take 125 mL intravenously every hour 125 mL/hr, intravenous, Continuous, Starting on Thu08/30/24 at 0800, For 1 day Start: 08-30-2024 End: 08-31-2024 take 100 mL intravenously every hour 100 mL/hr, intravenous, Continuous, Starting on Thu08/30/24 at 1215, For 1 day Start: 08-26-2024 End: 09-22-2024 sodium chloride 1,000 mg tab let Indications: Hyponatremia GIVE 1 TABLET PER G-TUBE ONCE DAILY 30 tablet 09/20/2024 Active Start: 04-20-2024 take 75 mL intraveno usly every hour 75 mL/hr, intravenous, Continuous, Starting on Thu04/20/24 at 1015 Start: 04-18-2024 End: 04-18-2024 1,000 mL, intravenous, at 99 9 mL/hr, Administer over 1 Hours, Once, On Thu04/18/24 at 1100, For 1 dose levothyroxine sodium 0.05 mg oral tablet (20 sources) l-Thyroxine Start: 12-21-2024 levothyroxine (SYNTHROID, LEVOTHROID) 50 MCG tablet 1 (one) tablet (50 mcg total) by Per G Tube route daily GIVE 1 TABLET BY PEG TUBE ONCE DAILY . 90 tablet 3 12/21/2024 Active Start: 08-30-2024 50 mcg, g-tube , Daily, First dose on Thu08/30/24 at 1215 Start: 07-19-2024 levothyroxine (Synthroid, Levoxyl) 50 mcg tablet Indications: Hypothyroidism, unspecified type GIVE 1 TABLET BY PEG TUBE ONCE DAILY DX: HYPOTHYROIDISM 30 tablet 4 07/19/2024 Active Start: 07-16-2023 End: 07-15-2024 take 50 ug by mouth once daily 50 mcg, oral, Daily, Fi rst dose on Thu04/19/24 at 0600 Start: 07-16-2023 take 1 capsule by [facility] once daily before mealtime levothyroxine (Tirosint) 50 mcg capsule Indications: Hypothyroidism, unspecified type Take 1 capsule (50 mcg) by mouth once daily in the morning. Take before meals. 90 capsule 3 07/16/2023 Active Start: 12-21-2018 End: 07-16-2023 take 1 capsule by mouth once daily Levothyroxine 50 mcg capsule Discontinued 50 ug PO DAILY 90 July 10, 2022 1:06pm July 14, 2022 10:32am levothyroxine (S YNTHROID, LEVOTHROID) 50 MCG tablet 1 (one) tablet (50 mcg total) by Per G Tube route daily GIVE 1 TABLET BY PEG TUBE ONCE DAILY . Active take 1 capsule by mo [facility] once daily levothyroxine 50 mcg (0.05 mg) oral capsule ; 1 cap(s) orally once a day Quantity: 0 Refills: 0 Ordered: 08-Aug-2022 Jojo Loyd Generic Substitution Allowed Comment on above: Take 50 mcg by mouth daily before breakfast. vitamin b12 1 mg oral tablet (20 sources) Vitamin B12 Start: 12-21-2024 cyanocobalamin (B-12) 1000 MCG tablet 1 (one) tablet (1,000 mcg total) by Per G Tube route daily GIVE 1 TABLET BY PEG TUBE ONCE DAILY . 90 tablet 3 12/21/2024 Active Start: 12-23-2023 take 1 tablet by [facility] once daily cyanocobalamin (Vitamin B-12) 1,000 mcg tablet Indications: Intellectual functioning disability Take 1 tablet (1,000 mcg) by mouth once daily. 90 tablet 3 10/12/2024 11:36 AM EST 12/23/2023 Active cyanocobalamin ( B-12) 1000 MCG tablet 1 (one) tablet (1,000 mcg total) by Per G Tube route daily GIVE 1 TABLET BY PEG TUBE ONCE DAILY . Active Completed/Discontinued Medications Medication Drug Class(es) Dates Sig (Normalized) Sig (Original) benzocaine 140 mg/ml / butamben 20 mg/ml / tetracaine 20 mg/ml mucosal spray (1 source) Divya Local Anesthetic, Standardized Chemical Allergen Start: 04-22-2024 End: 04-22-2024 Topical, As needed, Starting on Thu04/22/24 at 0848, Intraprocedure calcium carbonate 1500 mg oral tablet (20 sources) Start: 01-21-2022 End: 10-06-2024 take 1 tablet by mouth twice daily Calcium Carbonate 600 mg calcium (1,500 mg) tablet Discontinued 600 mg PO TWICE A DAY 180 3 December 01, 2022 11:53am February 22, 2024 12:06pm Start: 01-06-2019 End: 06-06-2021 Calcium Carbonate ([place] Calcium 500) 500 mg calcium (1,250 mg) tablet Discontinued 500 mg PO TWICE A DAY 180 0 April 30, 2021 3:33pm June 06, 2021 12:11pm Start: 12-21-2018 End: 01-06-2019 Calcium Carbonate (Oyster Sh ell Calcium 500) 500 mg calcium (1,250 mg) tablet Discontinued 500 mg PO DAILY December 21, 2018 12:00am January 06, 2019 3:04pm calcium carbonat e (OYSTER SHELL CALCIUM ORAL) Take by mouth. Active calcium carbonat e 600 mg oral tablet, chewable ; orally 2 times a day Quantity: 0 Refills: 0 Ordered: 09-Aug-2022 Rosangela Hernandez Generic Substitution Allowed calcium carbonat e (OYSTER SHELL CALCIUM ORAL) Take by mouth. 0 Active Comment on above: Take by mouth. cholecalciferol 1.25 mg oral capsule (20 sources) Vitamin D Start: 06-24-20 End: 09-01-19 take 1 capsule by mouth every week cholecalciferol (Vitamin D-3) 50,000 unit capsule Take 1 capsule (50,000 Units) by mouth 1 (one) time per week. 06/24/2023 09/01/2024 Discontinued (Therapy completed) Start: 06-11-2023 End: 02-22-2024 take 1 capsule by mouth two times weekly Cholecalciferol (Vitamin D3) 1,250 mcg (50,000 unit) capsule Discontinued 1250 ug PO TWICE A WEEK 8 August 13, 2023 1:12pm February 22, 2024 12:50pm Start: 04-08-2023 End: 06-11-2023 take 1 capsule by mouth every week Cholecalciferol (Vitamin D3) 1,250 mcg (50,000 unit) capsule Discontinued 1250 ug PO EVERY WEEK 4 April 08, 2023 12:00am June 11, 2023 8:32am Start: 01-21-2022 End: 04-08-2023 take 1 capsule by mouth once daily Cholecalciferol (Vitamin D3) 50 mcg (2,000 unit) capsule Discontinued 50 ug PO DAILY 90 December 22, 2022 8:42am April 08, 2023 1:30pm Start: 01-06-2019 End: 06-13-2019 take 1 capsule by mouth once daily Cholecalciferol (Vitamin D3) 5,000 unit capsule Discontinued 5000 U PO DAILY January 06, 2019 12:00am June 13, 2019 11:54am cholecalciferol, vitamin D3, 1,250 mcg (50,000 unit) Tab 0.02 tablets by Per G Tube route GIVE 1 CAPSULE BY PEG TUBE 2 TIMES PER WEEK . Active take 1 tablet by once daily cholecalciferol, vitamin D3, 1,000 unit tablet Take 1 (one) tablet (1,000 Units total) by mouth daily . Active End: 07-16-2023 take 1 tablet by mouth once daily cholecalciferol (Vitamin D-3) 50 MCG (2000 UT) tablet Take 1 tablet (50 mcg) by mouth once daily. 0 07/16/2023 Discontinued (Therapy completed) ciprofloxacin 500 mg oral tablet (10 sources) Quinolone Antimicrobial Start: 05-20-2019 End: 06-13-2019 take 1 tablet by mouth every twelve hours Ciprofloxacin Hcl 500 mg tablet Discontinued 500 mg PO Q12H 10 May 20, 2019 12:00am June 13, 2019 11:54am 1 ml dexamethasone phosphate 10 mg/ml injection (1 source) Corticosteroid Start: 08-30-2024 End: 08-30-2024 10 mg, intravenous, Once, On Thu08/30/24 at 0645, For 1 dose Start: 08-30-2024 End: 08-30-2024 10 mg, intravenous, Once, On Thu08/30/24 at 0645, For 1 dose doxycycline monohydrate 100 mg oral capsule (10 sources) Tetracycline-class Drug Start: 06-13-2019 End: 06-21-2019 take 1 capsule by mouth twice daily Doxycycline Monohydrate 100 mg capsule Discontinued 100 mg PO TWICE A DAY 14 7 0 June 13, 2019 1:00am June 19, 2019 1:00am June 21, 2019 1:08am Fluad Quad [id number](65yr up)(PF) 60 mcg (15 mcg x 4)/0.5mL IM syringe (flu vac (1 source) Start: 06-04-2021 End: 06-04-2021 Fluad Quad (65yr up)(PF) 60 mcg (15 mcg x 4)/0.5mL IM syringe (flu vac Discontinued 60 MCG IM ONCE 0.5 June 04, 2021 8:54am June 04, 2021 10:23am glucagon (rdna) 1 mg injection (1 source) Antihypoglycemic Agent Start: 10-05-2023 End: 10-05-2023 glucagon (Glucagen) injection 150 ml glucose 50 mg/ml injection (1 source) Start: 04-18-2024 End: 04-20-2024 take 100 mL intravenously every hour 100 mL/hr, intravenous, Continuous, Starting on Thu04/18/24 at 1415 3 ml icatibant 10 mg/ml prefilled syringe (1 source) Bradykinin B2 Receptor Antagonist Start: 08-30-2024 End: 08-30-2024 30 mg, subcutaneous, Once, On Thu08/30/24 at 0645, For 1 dose, Inject into the abdomen over 30 seconds or more, using the 25-gauge needle provided. Inject 2 to 4 inches below belly button and away from any scars. Do not inject into an area that is bruised, swollen, or painful. Hazardous Drug - Double Nitrile Glove, Gown insulin detemir 100 unt/ml injectable solution (10 sources) Insulin Analogue Start: 04-18-2016 End: 04-20-2017 insulin detemir (LEVEMIR) 100 unit/mL injection Inject 9 Units under the skin at bedtime. 10 mL 11 04/18/2016 04/20/2017 Discontinued insulin detemir U-100 (LEVEMIR U-100 INSULIN) 100 unit/mL injection Inject subcutaneously daily at bedtime. Active Comment on above: Inject subcutaneousl y daily at bedtime. 3 ml insulin lispro 100 unt/ml pen injector (20 sources) Insulin Analogue Start: 07-17-2021 End: 2023 Insulin Lispro 100 unit/mL insulin pen Discontinued 0 .ROUTE .COMPLEX 15 2 July 17, 2021 4:27pm 2023 11:50am USE DIRECTED PER SLIDING SCALE. IF BLOOD SUGAR 250-300 GIVE 1 UNIT. IF BLOOD SUGAR>300 GIVE 2 UNITS Start: 07-17-2021 insulin lispro (HUMALOG KWIKPEN) 100 unit/mL 07/17/2021 Active Start: 12-21-2018 End: 12-07-2020 Insulin Lispro (Humalog U-10 0 Insulin) 100 unit/mL solution Discontinued 2 U SC before meals 10 2 August 20, 2020 4:24pm December 07, 2020 8:51am Start: 09-16-2017 HUMALOG U-100 INSULIN 100 unit/mL injection 09/16/2017 Active Start: 12-11-2015 End: 09-19-2024 insulin lispro (HumaLOG) 100 unit/mL injection Use as directed, approx 10 units per day. 10 mL 12 12/11/2015 09/19/2024 Discontinued INSULIN LISPRO ( HUMALOG SUBCUTANEOUS) Inject subcutaneously. Active insulin lispro 1 00 units/mL injectable solution ; Use as directed per sliding scale Quantity: 0 Refills: 0 Ordered: 09-Aug-2022 Lazaro Nieves Generic Substitution Allowed INSULIN LISPRO ( HUMALOG SUBCUTANEOUS) Inject subcutaneously. 0 Active Comment on above: Inject subcutaneousl y. insulin lispro (HUMALOG KWIKPEN) 100 unit/mL (1 source) Start: 07-17-2021 insulin lispro (HUMALOG KWIKPEN) 100 unit/mL iron-folic acid-mv, min cmb#15 (Centratex) 106 mg iron- 1 mg capsule (10 sources) End: 08-30-2024 iron-folic acid-mv, min cmb#15 (Centratex) 106 mg iron- 1 mg capsule Take by mouth once every 24 hours. 08/30/2024 Discontinued (Entered in Error) iron-folic acid- mv, min cmb#15 (Centratex) 106 mg iron- 1 mg capsule Take by mouth once every 24 hours. Active iron-folic acid- mv, min cmb#15 (Centratex) 106 mg iron- 1 mg capsule Take by mouth once every 24 hours. 0 Active 50 ml levoFLOXacin 5 mg/ml injection (2 sources) Quinolone Antimicrobial Start: 04-22-2024 End: 04-22-2024 250 mg, intravenous, at 50 mL/hr, Administer over 60 Minutes, Once, On Thu04/22/24 at 0815, For 1 dose, premix bag, Dosing of this medication varies based on severity of illness. Does this patient have sepsis or concern for sepsis (probable or documented infection plus systemic manifestations of infection)? No, Suspected Indication (Select all that apply): Surgical Prophylaxis, Indications: Surgical Prophylaxis Start: 04-18-2024 End: 04-18-2024 750 mg, intravenous, at 100 mL/hr, Administer over 90 Minutes, Once, On Thu04/18/24 at 1040, For 1 dose, premix bag, Dosing of this medication varies based on severity of illness. Does this patient have sepsis or concern for sepsis (probable or documented infection plus systemic manifestations of infection)? Yes, Suspected Indication (Select all that apply): Cellulitis, Skin and Soft Tissue, Indications: Cellulitis, Skin and Soft Tissue lisinopril 20 mg oral tablet (20 sources) Angiotensin Converting Enzyme Inhibitor Start: 03-24-2024 End: 04-28-2025 take 1 tablet by mouth once daily in the evening lisinopril 20 mg tablet Indications: Primary hypertension Take 1 tablet (20 mg) by mouth once daily. 100 tablet 3 08/15/2024 1:47 PM EST 03/24/2024 04/28/2025 Suspended Start: 09-27-2016 End: 09-19-2024 take 1 tablet by mouth once daily Lisinopril 30 mg tablet Discontinued 0 .ROUTE .COMPLEX 08 06May 14, 2021 10:31am April 08, 2022 11:55am TAKE 1 TABLET BY MOUTH ONCE DAILY FOR BLOOD PRESSURE *DR. MOBLEY FOR RF [phone]* LISINOPRIL ORAL Take by mouth. Active LISINOPRIL ORAL Take by mouth. 0 Active Comment on above: Take by mouth. lovastatin 20 mg oral tablet (20 sources) HMG-CoA Reductase Inhibitor Start: 7 End: 2 take 1 tablet by mouth once daily in the evening Lovastatin 20 mg tablet Discontinued 0 .ROUTE .COMPLEX 08 06May 14, 2021 10:31am April 08, 2022 11:55am GIVE 1 TABLET BY MOUTH EVERY EVENING DX: CHOLESTEROL *DR. MOBLEY FOR RF [phone]* Start: 10-03-2016 lovastatin ([place] VACOR) 20 MG tablet 1 (one) tablet (20 mg total) by Per G Tube route nightly GIVE 1 TABLET BY PEG TUBE EVERY EVENING . 10/03/2016 Active LOVASTATIN ORAL Take by mouth. Active LOVASTATIN ORAL Take by mouth. 0 Active Comment on above: Take by mouth. magnesium citrate 58.2 mg/ml oral solution (1 source) Start: 10-05-2023 End: 10-05-2023 magnesium citrate solution 296 mL Start: 10-05-2023 End: 10-05-2023 magnesium citrate solution 2 96 mL mecobalamin 1 mg sublingual tablet (20 sources) Start: 12-21-2018 End: 07-14-2022 Mecobalamin (Vitamin B12) 1,000 mcg tablet,disintegrating Discontinued 1000 ug SL DAILY July 10, 2022 1:06pm July 14, 2022 10:32am mirtazapine 7.5 mg oral tablet (13 sources) Start: 12-21-2018 End: 02-27-2020 take 1 tablet by mouth once daily Mirtazapine 7.5 mg tablet Discontinued 7.5 mg PO DAILY December 21, 2018 12:00am May 17, 2019 1:38pm Multivitamin (Daily-Catarina) tablet (20 sources) Start: 04-12-2021 End: 07-17-2021 Multivitamin (Daily-Catarina) tablet Discontinued 1 {tbl} PO DAILY April 12, 2021 9:29am July 17, 2021 4:27pm Start: 04-12-2021 End: 07-17-2021 Multivitamin (Daily-Catarina) ta blet Discontinued 1 {tbl} PO DAILY April 12, 2021 9:29am July 17, 2021 4:27pm Start: 04-12-2021 End: 07-17-2021 take 1 tablet by mouth once daily Multivitamin (Daily-Catarina) tablet Discontinued 1 TABLET PO DAILY April 12, 2021 8:29am July 17, 2021 3:27pm Start: 04-12-2021 End: 07-17-2021 take 1 tablet by mouth once daily Multivitamin (Daily-Catarina) tablet Discontinued 1 TABLET PO DAILY April 12, 2021 9:29am July 17, 2021 4:27pm Start: 12-21-2018 End: 04-12-2021 take 1 tablet by mouth once daily Multivitamin (Daily-Catarina) tablet Discontinued 1 TABLET PO DAILY December 21, 2018 2:41pm April 12, 2021 9:29am Start: 12-21-2018 End: 04-12-2021 Multivitamin (Daily-Catarina) ta blet Discontinued 1 {tbl} PO DAILY December 21, 2018 12:00am April 12, 2021 9:29am Start: 12-21-2018 End: 04-12-2021 take 1 tablet by mouth once daily Multivitamin (Daily-Catarina) tablet Discontinued 1 TABLET PO DAILY December 20, 2018 11:00pm April 12, 2021 8:29am Start: 12-21-2018 End: 04-12-2021 take 1 tablet by mouth once daily Multivitamin (Daily-Catarina) tablet Discontinued 1 TABLET PO DAILY December 21, 2018 12:00am April 12, 2021 9:29am multivitamin (Daily-Catarina, with folic acid,) tablet (7 sources) Start: 12-23-2023 End: 09-01-2024 take 1 tablet by mouth once daily multivitamin (Daily-Catarina, with folic acid,) tablet Indications: Intellectual functioning disability Take 1 tablet by mouth once daily. 90 tablet 3 12/23/2023 09/01/2024 Discontinued (Therapy completed) Start: 12-23-2023 take 1 tablet by isabell th once daily multivitamin (Daily-Catarina, with folic acid,) tablet Indications: Intellectual functioning disability Take 1 tablet by mouth once daily. 90 tablet 3 12/23/2023 Active multivitamin (THERAGRAN) per tablet (20 sources) End: 09-19-2024 take 1 tablet by mouth once daily at mealtime multivitamin (THERAGRAN) per tablet take 1 tablet by oral route every day with food. 09/19/2024 Discontinued take 1 tablet by isabell th once daily at mealtime multivitamin (THERAGRAN) per tablet take 1 tablet by oral route every day with food. 0 Active take 1 tablet by isabell th once daily at mealtime multivitamin (THERAGRAN) per tablet take 1 tablet by oral route every day with food. Active 2 ml ondansetron 2 mg/ml injection (1 source) Serotonin-3 Receptor Antagonist Start: 10-05-2023 End: 10-05-2023 ondansetron (Zofran) injection 4 mg microencapsulated potassium chloride 20 meq extended release oral tablet (3 sources) Start: 04-19-2024 End: 04-21-2024 40 mEq, oral, Once, On Thu04/21/24 at 0915, For 1 dose, Best given with food and plenty of water to minimize gastric irritation. Do not crush or chew. salmon calcitonin 200 unt/ml injectable solution (1 source) Calcitonin Start: 04-18-2024 End: 04-19-2024 inject 100 [IU] by intramuscular injection once daily 100 Units, intramuscular, Daily, First dose on Thu04/18/24 at 1415 traMADol hydrochloride 50 mg oral tablet (10 sources) Opioid Agonist Start: 12-21-2018 End: 08-01-2020 take 1 tablet by mouth twice daily as needed Tramadol 50 mg tablet Discontinued 50 mg PO TWICE A DAY as needed December 21, 2018 12:00am August 01, 2020 11:30am tropicamide 10 mg/ml ophthalmic solution (1 source) Anticholinergic Start: 11-18-2023 End: 11-18-2023 tropicamide 1 % 1 Drop (MYDRIACYL) Problems Active Problems Problem Classification Problem Date Documented Da te Episodic/Chronic Allergic reactions (1 source) Allergy status to penicillin; Translations: [Allergy status to penicillin] Onset: 02-10-2023 Episodic Blindness and vision defects (20 sources) Bilateral myopia of eyes; Translations: [Myopia, bilateral] Onset: 08-16-2014 Episodic Cardiac dysrhythmias (1 source) Bradycardia, unspecified; Translations: [Bradycardia, unspecified] Onset: 02-10-2023 Episodic Cataract (20 sources) Bilateral senile combined form cataracts of eyes; Translations: [Combined forms of age-related cataract, bilateral] Onset: 08-28-2015 Chronic Chronic ulcer of skin (15 sources) Pressure ulcer of unspecified site, unspecified stage; Translations: [Pressure injury of skin] Onset: 03-03-2024 06-04-2021 Chronic Complications of surgical procedures or medical care (3 sources) Malfunction of gastrostomy tube; Translations: [Gastrostomy malfunction] Onset: 11-28-2024 11-28-2024 Episodic Developmental disorders (20 sources) Intellectual disability; Translations: [Unspecified intellectual disabilities] Onset: 03-03-2022 Chronic Diabetes mellitus with complications (20 sources) Diabetic autonomic neuropathy due to type 2 diabetes mellitus; Translations: [Type 2 diabetes mellitus with diabetic autonomic (poly)neuropathy] Onset: 10-22-2015 10-22-2015 Chronic Diabetes mellitus with complications (4 sources) Diabetes mellitus with complications 08-09-2022 Diabetes mellitus without complication (20 sources) Diabetes mellitus; Translations: [Type 2 diabetes mellitus without complication] Onset: 08-28-2015 10-22-2015 Chronic Disorders of lipid metabolism (20 sources) Hyperlipidemia, unspecified; Translations: [Mixed hyperlipidemia] Onset: 08-11-2022 07-16-2023 Chronic Epilepsy; convulsions (20 sources) Epilepsy; Translations: [Epilepsy, unspecified, not intractable, without status epilepticus] Onset: 01-06-2023 11-24-2022 Chronic Essential hypertension (20 sources) Hypertensive disorder; Translations: [Essential (primary) hypertension] Onset: 01-07-2022 Chronic Fluid and electrolyte disorders (20 sources) Hyponatremia; Translations: [Hypo-osmolality and hyponatremia] Onset: 02-10-2023 12-28-2020 Episodic Hepatitis (20 sources) Hepatitis B carrier; Translations: [Chronic viral hepatitis B without delta-agent] Onset: 11-24-2022 11-24-2022 Chronic Immunizations and screening for infectious disease (13 sources) Needs influenza immunization; Translations: [Encounter for immunization] Onset: 12-29-2023 Episodic Nutritional deficiencies (12 sources) Vitamin D deficiency; Translations: [Vitamin D deficiency, unspecified] Onset: 02-22-2024 11-24-2022 Chronic Nutritional deficiencies (20 sources) Vitamin deficiency; Translations: [Vitamin deficiency, unspecified] Onset: 11-24-2022 06-04-2021 Episodic Osteoporosis (20 sources) Osteoporosis; Translations: [Age-related osteoporosis without current pathological fracture] Onset: 01-07-2022 Chronic Other aftercare (1 source) Other exterminator (current) drug therapy; Translations: [Other fdc (current) drug therapy] Onset: 02-10-2023 Episodic Other aftercare (1 source) Long-term current use of insulin; Translations: [MCC (current) use of insulin] 11-03-2024 Episodic Other circulatory disease (2 sources) Transient hypotension; Translations: [Nonspecific low blood pressure reading] 08-09-2022 Episodic Other circulatory disease (3 sources) Hypotension, unspecified; Translations: [Hypotension, unspecified] Onset: 08-11-2022 Episodic Other circulatory disease (1 source) Low blood pressure; Translations: [Hypotension, unspecified] 03-18-2024 Episodic Other eye disorders (11 sources) Exotropia of right eye; Translations: [Unspecified exotropia] Onset: 10-06-2017 Episodic Other gastrointestinal disorders (19 sources) History of placement of gastrostomy tube; Translations: [Gastrostomy status] Onset: 09-25-2024 09-19-2024 Chronic Other gastrointestinal disorders (4 sources) Gastrostomy status; Translations: [Gastrostomy status (Multi)] Onset: 09-19-2024 Chronic Other gastrointestinal disorders (1 source) Stool DNA-based colorectal cancer screening positive; Translations: [Other fecal abnormalities] 10-05-2023 Episodic Other lower respiratory disease (4 sources) Hypoxemia; Translations: [Hypoxemia] 08-09-2022 Episodic Other nervous system disorders (3 sources) Metabolic encephalopathy; Translations: [Metabolic encephalopathy] Onset: 08-11-2022 08-15-2022 Chronic Other nutritional; endocrine; and metabolic disorders (5 sources) Hypercalcemia; Translations: [Hypercalcemia] Onset: 04-18-2024 06-27-2024 Chronic Other nutritional; endocrine; and metabolic disorders (3 sources) Hypercalcemia; Translations: [Hypercalcemia] Onset: 04-18-2024 Chronic Other nutritional; endocrine; and metabolic disorders (10 sources) Unintentional weight loss; Translations: [Abnormal weight loss] 06-04-2021 Episodic Other skin disorders (8 sources) Dystrophia unguium; Translations: [Nail dystrophy] Episodic Paralysis (20 sources) Cerebral palsy; Translations: [Cerebral palsy, unspecified] Onset: 08-11-2022 08-19-2022 Chronic Peripheral and visceral atherosclerosis (9 sources) Peripheral vascular disease; Translations: [Peripheral vascular disease, unspecified] Onset: 07-13-2024 Chronic Residual codes; unclassified (1 source) Activity of daily living (ADL) alteration; Translations: [Other specified conditions influencing health status] Episodic Residual codes; unclassified (20 sources) Altered mental status; Translations: [Altered mental status] Onset: 04-18-2024 08-09-2022 Episodic Residual codes; unclassified (1 source) At risk of disease; Translations: [Other specified personal risk factors, not elsewhere classified] 11-24-2024 Episodic Residual codes; unclassified (2 sources) History of placement of gastrostomy tube 11-28-2024 Episodic Thyroid disorders (20 sources) Hypothyroidism; Translations: [Hypothyroidism, unspecified] Onset: 10-22-2015 10-22-2015 Chronic Unclassified (2 sources) Transient hypotension 08-09-2022 Unclassified (1 source) Lng trm (crnt) use injectable non-insulin antidiabetic drugs; Translations: [Lng trm (crnt) use injectable non-insulin antidiabetic drugs] Onset: 02-10-2023 Unclassified (1 source) Unspecified toxic encephalopathy; Translations: [Unspecified toxic encephalopathy] Onset: 08-11-2022 Unclassified (1 source) Contact with and (suspected) exposure to COVID-19; Translations: [Contact with and (suspected) exposure to COVID-19] Onset: 08-11-2022 Unclassified (1 source) Acidosis, unspecified; Translations: [Acidosis, unspecified] Onset: 04-18-2024 Past or Other Problems Problem Classification Problem Date Documented Da te Episodic/Chronic Coma; stupor; and brain damage (4 sources) Unresponsive ; Translations: [Somnolence] Onset: 08-08-2022 08-09-2022 Episodic Comment on above: UNRESPONSIVE Epilepsy; convulsions (20 sources) Unspecified convulsions; Translations: [Seizure] Onset: 08-11-2022 06-27-2024 Episodic Malaise and fatigue (6 sources) Other malaise; Translations: [Fatigue] Onset: 02-10-2023 03-24-2024 Episodic Mood disorders (8 sources) Mood disorders Onset: 11-16-2024 11-16-2024 Mycoses (6 sources) Candidiasis of mouth; Translations: [Candidal stomatitis] Onset: 01-26-2024 01-26-2024 Episodic Other aftercare (9 sources) MCC (current) use of insulin; Translations: [continuous churn buttermaker (current) use of insulin] Onset: 10-22-2015 Episodic Other gastrointestinal disorders (1 source) Constipation, unspecified; Translations: [Constipation, unspecified] Onset: 08-11-2022 Episodic Other injuries and conditions due to external causes (6 sources) Angioedema of tongue; Translations: [Angioneurotic edema, initial encounter] Onset: 08-30-2024 Resolved: 09-01-2024 08-30-2024 Episodic Other injuries and conditions due to external causes (2 sources) Angioneurotic edema, initial encounter; Translations: [Angioneurotic edema, initial encounter] Onset: 08-30-2024 Episodic Other lower respiratory disease (3 sources) Hypoxemia; Translations: [Hypoxemia] Onset: 08-11-2022 08-15-2022 Episodic Other nutritional; endocrine; and metabolic disorders (13 sources) Abnormal intentional weight loss; Translations: [Abnormal weight loss] Onset: 12-09-2023 12-09-2023 Episodic Other nutritional; endocrine; and metabolic disorders (20 sources) Developmental delay; Translations: [Unspecified lack of expected normal physiological development in childhood] Onset: 04-22-2024 04-22-2024 Episodic Other nutritional; endocrine; and metabolic disorders (2 sources) Unspecified lack of expected normal physiological development in childhood; Translations: [Unspecified lack of expected normal physiological development in childhood] Onset: 04-22-2024 Episodic Other nutritional; endocrine; and metabolic disorders (4 sources) Abnormal weight loss; Translations: [Abnormal weight loss] Onset: 12-09-2023 Episodic Other skin disorders (2 sources) Nail dystrophy; Translations: [Nail dystrophy] Onset: 07-13-2024 Episodic Residual codes; unclassified (12 sources) Altered mental status, unspecified; Translations: [Altered mental status] Onset: 02-10-2023 08-09-2022 Episodic Comment on above: ALTERED MENTAL STATU S, UNSPECIFIED Residual codes; unclassified (3 sources) Other specified health status; Translations: [Other specified health status] Onset: 03-03-2022 Episodic Residual codes; unclassified (17 sources) Tube feeding diet; Translations: [Other specified health status] Onset: 09-25-2024 09-19-2024 Episodic Respiratory failure; insufficiency; arrest (adult) (11 sources) Respiratory failure, unspecified with hypercapnia; Translations: [Acute hypercapnic respiratory failure] Onset: 08-11-2022 06-27-2024 Episodic Unclassified (8 sources) history of chemical labotomy 03-10-2022 Comment on above: as a child Unclassified (13 sources) Onset: 07-16-2023 Resolved: 09-06-2024 07-16-2023 Unclassified (1 source) Acidosis, unspecified; Translations: [Acidosis, unspecified] Onset: 04-18-2024 Viral infection (3 sources) Herpes simplex; Translations: [Herpesviral infection, unspecified] Onset: 09-06-2024 09-06-2024 Episodic Results Test Name Value Interpretation Reference Range Facility Neurology Visit Reporton Neurology Visit Report [facility] [address], [address] [place] [address] OFFICE VISIT Date of Service: 01/31/25 MR#: [id number] Acct: [id number] Name: MIK SHELTON Rep #: [id number] : 1945 Provider: Dr. Cedrick del real MD Age/Sex: 79/F Location: [facility] Status: Signed HPI HPI Chief Complaint: Details: Interim History: Mik returns for follow-up visit. She has a history of profound mental retardation, cerebral palsy, hypertension, hepatitis B carrier state (from ), diabetes mellitus, vitamin D deficiency, B12 deficiency, osteoporosis, and hypothyroidism who presented for evaluation of an episode of unresponsiveness in July 2022. [place] and is accompanied by staff members. In July 2022, she was at her usual baseline and was put to bed. Later that night, when staff went to change her diaper for treatment of urinary incontinence, she appeared unresponsive (she was not arousable to sternal rub). EMS was called and she was taken to the emergency room. In route, she was given a dose of Narcan and appeared to transiently arouse though after arrival to the emergency room she was again unresponsive and remained in that condition until the next morning. She then returned to her usual baseline. A head CT revealed encephalomalacia; no acute abnormality was identified. The remainder of her evaluation was unrevealing with regard to a cause of her unresponsiveness. She did not exhibit any tongue biting (she is adentulous) or abnormal limb movements during the episode. Staff members reported that since at least 2018 up to the episode in July 2022, no observed episodes suggestive of seizures were noted. Details of her past medical history are sparse. Per medication records, it appears that she has been diagnosed with epilepsy in years past however details regarding this are not available. She is nonambulatory and requires total care. She is nonverbal. She has a history of anxiety and is prescribed aripiprazole. She takes carbamazepine for her seizure disorder. She has chronic constipation. She had another episode of unresponsiveness in February 2023 and her caregiver reported that her serum sodium was noted to be low at that time (details regarding the actual sodium level is presen tly not available). She was hospitalized at [facility]. She is now at her baseline. Lamotrigine was initiated following her episode of unresponsiveness in February 2023 and she has had no further symptoms suggestive of seizures. Carbamazepine caused a side effect of hyponatremia and her carbamazepine dose was reduced to 100 mg daily and lamotrigine was initiated. Her lamotrigine level (October 2023) was in the therapeutic range. Her carbamazepine level (October 2023) was low. Her last ammonia was normal. Her serum sodium (October 2023) was normal. Vitamin D supplementation was initiated for vitamin D deficiency. Due to persistently low vitamin D level. Her vitamin D3 supplement was increased to 1.25 mg twice per week and she also takes a twice daily calcium/vitamin D 600/400 supplement twice daily. Her vitamin D level (October 2023) remained low. My review of hospital records from July 2022: Emergency room records report that the patient became drowsy again after emergency room presentation and did not respond to a second dose of Narcan. She became hypotensive (systolic BP: 65) and was treated with IV normal saline and BP improved. She became hypoxemic during sleep and was treated with O2 2 liters per nasal canula. ABG showed compensated chronic hypercapnia without hypoxemia. Concern for possible polypharmacy was raised. EKG showed normal sinus rhythm without any concerning changes. Urine tox screen was positive for benzodiazepines; patient was on diazepam. Diazepam was held. Urinalysis microscopic showed mild bacteria and she was started on an antibiotic; urine culture showed contamination. The patients altered mental status resolved. Summary of additional information obtained from a comprehensive functional assessment that was performed on 03/29/2018, is as follows: The patient's was induced and described as easy. She weighed 5 pounds and 8 ounces at . She first held her head up at 6 weeks, sat alone at 2 years of age and spoke words at 3, walk informed sentences at 5 years of age. At the age of 15 months she received moderately severe freeman of the left eye and was hospitalized. There she was exposed to whooping cough, which she subsequently developed. Reports indicate that she never been right since exposure to that illness.. She was walking and standing prior to this time and mental retardation followed the pertussis. She has been self abusive throughout her life. She lived at home until she was institutionalized in 1955. While Mik was at [facility] in 1957, she received 5 separate phl (more content not included)... Normal [facility] 12-26-2024 Esophagogastroduodenosc opy Table formatting from the original result was not included. Impression Removed tube from the body of the stomach. The tube was replaced with a PEG tube. No Price's esophagus, stricture, ulcer or varices were observed in the esophagus or stomach. Findings Removed tube endoscopically with a retrieval snare net from the body of the stomach. Scope was reinserted and the mucosa appeared normal. The tube was replaced with a PEG tube measuring 20 Fr using a water-filled balloon bolster; distance from external bolster to external end of tube: 3.5 cm. No Price's esophagus, stricture, ulcer or varices were observed in the esophagus or stomach. Recommendation Follow up with me in clinic Indication Cerebral palsy Post-Op Diagnosis None Staff Staff Role No Staff Documented Medications No administrations occurring from 0700 to 0728 on 12/26/24 Preprocedure A history and physical has been performed, and patient medication allergies have been reviewed. The patient's tolerance of previous anesthesia has been reviewed. The risks and benefits of the procedure and the sedation options and risks were discussed with the patient and caregivers. All questions were answered and informed consent obtained. Details of the Procedure The patient underwent monitored anesthesia care, which was administered by an anesthesia professional. The patient's blood pressure, ECG, ETCO2, heart rate, level of consciousness, oxygen and respirations were monitored throughout the procedure. The scope was introduced through the mouth and advanced to the first part of the duodenum. Retroflexion was performed in the cardia. Prior to the procedure, the patient's H. Pylori status was negative. The patient experienced no blood loss. The procedure was not difficult. The patient tolerated the procedure well. There were no apparent adverse events. Antibiotics administered prior to procedure: no Site prep: Poli Patient Positioning: reclining>30 Events Procedure Events Event Event Time ENDO SCOPE IN TIME 12/26/2024 7:14 AM ENDO SCOPE OUT TIME 12/26/2024 7:20 AM Specimens No specimens collected Procedure Location [facility] [place] [address] [place] [id number] Referring Provider Clara Jones DO Procedure Provider Clara Jones DO Normal [facility] Comment on above: Order Comment: This assay has received FDA Emergency Use Authorization (EUA) and is only authorized for the duration of time that circumstances exist to justify the authorization of the emergency use of in vitro diagnostic tests for the detection of SARS-CoV-2 virus and/or diagnosis of COVID-19 infection under section 564(b)(1) of the Act, 21 U.S.C. 360bbb-3(b)(1). This assay is an in vitro diagnostic nucleic acid amplification test for the qualitative detection of SARS-CoV-2 from nasopharyngeal specimens and has been validated for use at [facility]. Negative results do not preclude COVID-19 infections and should not be used as the sole basis for diagnosis, treatment, or other management decisions. EGD Study observation Claire lemus 12-26-2024 Table formatting fro m the original result was not included. Impression Removed tube from the body of the stomach. The tube was replaced with a PEG tube. No Price's esophagus, stricture, ulcer or varices were observed in the esophagus or stomach. Findings Removed tube endoscopically with a retrieval snare net from the body of the stomach. Scope was reinserted and the mucosa appeared normal. The tube was replaced with a PEG tube measuring 20 Fr using a water-filled balloon bolster; distance from external bolster to external end of tube: 3.5 cm. No Price's esophagus, stricture, ulcer or varices were observed in the esophagus or stomach. Recommendation Follow up with me in clinic Indication Cerebral palsy Post-Op Diagnosis None Staff Staff Role No Staff Documented Medications No administrations occurring from 0700 to 0728 on 12/26/24 Preprocedure A history and physical has been performed, and patient medication allergies have been reviewed. The patient's tolerance of previous anesthesia has been reviewed. The risks and benefits of the procedure and the sedation options and risks were discussed with the patient and caregivers. All questions were answered and informed consent obtained. Details of the Procedure The patient underwent monitored anesthesia care, which was administered by an anesthesia professional. The patient's blood pressure, ECG, ETCO2, heart rate, level of consciousness, oxygen and respirations were monitored throughout the procedure. The scope was introduced through the mouth and advanced to the first part of the duodenum. Retroflexion was performed in the cardia. Prior to the procedure, the patient's H. Pylori status was negative. The patient experienced no blood loss. The procedure was not difficult. The patient tolerated the procedure well. There were no apparent adverse events. Antibiotics administered prior to procedure: no Site prep: SureCleans Patient Positioning: reclining>30 Events Procedure Events Event Event Time ENDO SCOPE IN TIME 12/26/2024 7:14 AM ENDO SCOPE OUT TIME 12/26/2024 7:20 AM Specimens No specimens collected Procedure [facility] [place] [address] [place] [id number] Referring Provider Clara Jones DO Procedure Provider Clara Jones DO IMAGING [facility] Work Phone: Radiology Study observation (narrative) [facility] Work Phone: Glucose Test strip manual (B ld) [Mass/Vol]on 12-26-2024 Glucose [Mass/Vol] 109 mg/dL High 74 - 99 mg/dL [facility] Interpretation and review of laboratory results Abnormal [facility] Glucose [Mass/Vol] 109 mg/dL High 74-99 [facility] Comment on above: Performed By: #### 9 [id number] #### JUANITO PERES ([id number]) [facility] ([facility]) [address] [place] [address] MTB SCREENon 12-09-2024 MITOGEN-NIL 9.9775 IU/mL Normal [facility] Comment on above: Performed By: #### L [id number] #### [facility] [address] [place] [address] Arden Correa M.D. [id number] MTB SCREEN INTERPRETATION Negative Normal Negative [facility] Comment on above: Result Comment: No I FN-gamma response to M tuberculosis antigens was detected. Latent infection with M tuberculosis is unlikely. A single negative result does not exclude infection with M tuberculosis. In patients at high risk for M tuberculosis infection,a second test should be considered Performed By: #### L [id number] #### [facility] [address] [place] [address] Arden Correa M.D. [id number] NIL 0.0225 IU/mL Normal [facility] Comment on above: Performed By: #### L [id number] #### [facility] [address] [place] [address] Arden Correa M.D. [id number] TB1-NIL -0.0063 IU/mL Normal 0.00 0.34 [facility] Comment on above: Performed By: #### L [id number] #### [facility] [address] [place] [address] Arden Correa M.D. [id number] TB2-NIL 0.0086 IU/mL Normal 0.00 0.34 [facility] Comment on above: Result Comment: Inte rferon gamma release is measured for specimens from each of the four collection tubes. A qualitative result (Negative, Positive, or Indeterminate) is based on interpretation of the four values, NIL, MITOGEN minus NIL (MITOGEN-NIL), TB1 minus NIL (TB1-NIL), and TB2 minus NIL (TB2-NIL). The NIL value represents nonspecific reactivity produced by the patient specimen. The MITOGEN-NIL value serves as the positive control for the patient specimen, demonstrating successful lymphocyte reactivity. The TB1-NIL tube specifically detects CD4+ lymphocyte reactivity, specifically stimulated by the TB1 antigens. The TB2-NIL tube detects both CD4+ and CD8+ lymphocyte reactivity, stimulated by the TB2 antigens. An overall Negative result does not completely rule out TB Infection. Performed By: #### L [id number] #### [facility] [place] [address] Arden Correa M.D. [id number] BASIC METABOLIC PANELon 03 BUN/CREATININE RATIO SEE NOTE: Normal 6-22 [facility] Comment on above: Order Comment: FASTI NG:NO FASTING: NO Result Comment: Not Reported: BUN and Creatinine are within reference range. Performed By: #### 1 [id number] #### [facility] [address], [address] [place] [address] Technical Director: Pradeep Núñez MD Calcium [Mass/Vol] 8.7 mg/dL Normal 8.6-10.4 [facility] Comment on above: Order Comment: FASTI NG:NO FASTING: NO Performed By: #### 1 0165 #### [facility] [place] [address] Technical Director: Pradeep Núñez MD Chloride [Moles/Vol] 97 mmol/L Low 98-110 [facility] Comment on above: Order Comment: FASTI NG:NO FASTING: NO Performed By: #### 1 0165 #### [facility] [place] [address] Technical Director: Pradeep Núñez MD CO2 [Moles/Vol] 27 mmol/L Normal 20-32 [facility] Comment on above: Order Comment: FASTI NG:NO FASTING: NO Performed By: #### 1 0165 #### [facility] [place] [address] Technical Director: Pradeep Núñez MD Creatinine [Mass/Vol] 0.60 mg/dL Normal 0.60-0.[address] [facility] [address] [facility] Comment on above: Order Comment: FASTI NG:NO FASTING: NO Performed By: #### 1 0165 #### [facility] [place] [address] Technical Director: Pradeep Núñez MD GFR/1.73 sq M.predicted among non-blacks MDRD (S/P/Bld) [Vol rate/Area] 91 mL/min/{1.73_m2} Normal > OR = 60 [facility] Comment on above: Order Comment: FASTI NG:NO FASTING: NO Performed By: #### 1 0165 #### [facility] [place] [address] Technical Director: Pradeep Núñez MD Glucose [Mass/Vol] 117 mg/dL Normal 65-139 [facility] Comment on above: Order Comment: FASTI NG:NO FASTING: NO Result Comment: Non-fasting reference interval For someone without known diabetes, a glucose value between 100 and 125 mg/dL is consistent with prediabetes and should be confirmed with a follow-up test. Performed By: #### 1 0165 #### [facility] [place] [address] Technical Director: Pradeep Núñez MD Potassium [Moles/Vol] 4.6 mmol/L Normal 3.5-5.3 [facility] Comment on above: Order Comment: FASTI NG:NO FASTING: NO Performed By: #### 1 0165 #### [facility] [place] [address] Technical Director: Pradeep Núñez MD Sodium [Moles/Vol] 132 mmol/L Low 135-146 [facility] Comment on above: Order Comment: FASTI NG:NO FASTING: NO Performed By: #### 1 0165 #### [facility] [place] [address] Technical Director: Pradeep Núñez MD Urea nitrogen [Mass/Vol] 22 mg/dL Normal 7-25 [facility] Comment on above: Order Comment: FASTI NG:NO FASTING: NO Performed By: #### 1 0165 #### [facility] [place] [address] Technical Director: Pradeep Núñez MD BASIC METABOLIC PANELon 09-11 Calcium [Mass/Vol] 8.5 mg/dL Low 8.6-10.4 [facility] Comment on above: Order Comment: FASTI NG:NO FASTING: NO Performed By: #### 1 0165 #### [facility] [place] [address] Technical Director: Pradeep Núñez MD Chloride [Moles/Vol] 94 mmol/L Low 98-110 [facility] Comment on above: Order Comment: FASTI NG:NO FASTING: NO Performed By: #### 1 0165 #### [facility] [place] [address] Technical Director: Pradeep Núñez MD CO2 [Moles/Vol] 28 mmol/L Normal 20-32 [facility] Comment on above: Order Comment: FASTI NG:NO FASTING: NO Performed By: #### 1 0165 #### [facility] [place] [address] Technical Director: Pradeep Núñez MD Creatinine [Mass/Vol] 0.57 mg/dL Low 0.60-0.[address] [facility] Comment on above: Order Comment: FASTI NG:NO FASTING: NO Performed By: #### 1 0165 #### [facility] [place] [address] Technical Director: Pradeep Núñez MD GFR/1.73 sq M.predicted among non-blacks MDRD (S/P/Bld) [Vol rate/Area] 92 mL/min/{1.73_m2} Normal > OR = 60 [facility] Comment on above: Order Comment: FASTI NG:NO FASTING: NO Performed By: #### 1 0165 #### [facility] [place] [address] Technical Director: Pradeep Núñez MD Glucose [Mass/Vol] 101 mg/dL Normal 65-139 [facility] Comment on above: Order Comment: FASTI NG:NO FASTING: NO Result Comment: Non-fasting reference interval For someone without known diabetes, a glucose value between 100 and 125 mg/dL is consistent with prediabetes and should be confirmed with a follow-up test. Performed By: #### 1 0165 #### [facility] [address], [address] [place] [address] Technical Director: Pradeep Núñez MD Potassium [Moles/Vol] 4.5 mmol/L Normal 3.5-5.[address] [facility] Comment on above: Order Comment: FASTI NG:NO FASTING: NO Performed By: #### 1 0165 #### [facility] [place] [address] Technical Director: Pradeep Núñez MD Sodium [Moles/Vol] 131 mmol/L Low 135-146 [facility] Comment on above: Order Comment: FASTI NG:NO FASTING: NO Performed By: #### 1 0165 #### [facility] [place] [address] Technical Director: Pradeep Núñez MD Urea nitrogen [Mass/Vol] 21 mg/dL Normal 7-25 [facility] Comment on above: Order Comment: FASTI NG:NO FASTING: NO Performed By: #### 1 0165 #### [facility] [place] [address] Technical Director: Pradeep Núñez MD Urea nitrogen/Creatinine [Mass ratio] 37 mg/mg High 6-22 [facility] Comment on above: Order Comment: FASTI NG:NO FASTING: NO Performed By: #### 1 0165 #### [facility] [place] [address] Technical Director: Pradeep Núñez MD Ambulatory referral to [facility] 10-05-2024 See scanned document ONBA SE [facility] BASIC METABOLIC PANELon 09-10 Calcium [Mass/Vol] 8.6 mg/dL Normal 8.6-10.4 [facility] Comment on above: Order Comment: FASTI NG:NO FASTING: NO Performed By: #### 1 0165 #### [facility] [place] [address] Technical Director: Pradeep Núñez MD Chloride [Moles/Vol] 90 mmol/L Low 98-110 [facility] Comment on above: Order Comment: FASTI NG:NO FASTING: NO Performed By: #### 1 0165 #### [facility] [place] [address] Technical Director: Pradeep Núñez MD CO2 [Moles/Vol] 28 mmol/L Normal 20-32 [facility] Comment on above: Order Comment: FASTI NG:NO FASTING: NO Performed By: #### 1 0165 #### [facility] [place] [address] Technical Director: Pradeep Núñez MD Creatinine [Mass/Vol] 0.58 mg/dL Low 0.60-0.[address] [facility] Comment on above: Order Comment: FASTI NG:NO FASTING: NO Performed By: #### 1 0165 #### [facility] [place] [address] Technical Director: Pradeep Núñez MD GFR/1.73 sq M.predicted among non-blacks MDRD (S/P/Bld) [Vol rate/Area] 91 mL/min/{1.73_m2} Normal > OR = 60 [facility] Comment on above: Order Comment: FASTI NG:NO FASTING: NO Performed By: #### 1 0165 #### [facility] [place] [address] Technical Director: Pradeep Núñez MD Glucose [Mass/Vol] 151 mg/dL High 65-139 [facility] Comment on above: Order Comment: FASTI NG:NO FASTING: NO Result Comment: Non-fasting reference interval For someone without known diabetes, a glucose value >125 mg/dL indicates that they may have diabetes and this should be confirmed with a follow-up test. Performed By: #### 1 0165 #### [facility] [place] [address] Technical Director: Pradeep Núñez MD Potassium [Moles/Vol] 4.8 mmol/L Normal 3.5-5.[address] [facility] Comment on above: Order Comment: FASTI NG:NO FASTING: NO Performed By: #### 1 0165 #### [facility] [address], [address] [place] [address] Technical Director: Pradeep Núñez MD Sodium [Moles/Vol] 126 mmol/L Low 135-146 [facility] Comment on above: Order Comment: FASTI NG:NO FASTING: NO Performed By: #### 1 0165 #### [facility] [address], [address] [place] [address] Technical Director: Pradeep Núñez MD Urea nitrogen [Mass/Vol] 21 mg/dL Normal 7-25 [facility] Comment on above: Order Comment: FASTI NG:NO FASTING: NO Performed By: #### 1 0165 #### [facility] [address], [address] [place] [address] Technical Director: Pradeep Núñez MD Urea nitrogen/Creatinine [Mass ratio] 36 mg/mg High 6-22 [facility] Comment on above: Order Comment: FASTI NG:NO FASTING: NO Performed By: #### 1 0165 #### [facility] [address], [address] [place] [address] Technical Director: Pradeep Núñez MD Basic metabolic 2000 panelon 09-22-2024 Calcium [Mass/Vol] 8.6 mg/dL 8.6 - 10. 4 mg/dL [facility] Chloride [Moles/Vol] 90 mmol/L Low 98 - 11 0 mmol/L [facility] CO2 [Moles/Vol] 28 mmol/L 20 - 32 mmol/L [facility] Creatinine [Mass/Vol] 0.58 mg/dL Low 0.60 - 0.95 mg/dL [facility] GFR/1.73 sq M.predicted among non-blacks MDRD (S/P/Bld) [Vol rate/Area] 91 mL/min/{1.73_m2} > OR = 60 mL/min/1.73m [facility] Glucose [Mass/Vol] 151 mg/dL High 65 - 139 mg/dL [facility] Comment on above: Non-fasting reference interval For someone without known diabetes, a glucose value >125 mg/dL indicates that they may have diabetes and this should be confirmed with a follow-up test. Interpretation and review of laboratory results Abnormal [facility] Potassium [Moles/Vol] 4.8 mmol/L 3.5 - 5.3 mmol/L [facility] Sodium [Moles/Vol] 126 mmol/L Low 135 - 146 mmol/L [facility] Urea nitrogen [Mass/Vol] 21 mg/dL 7 - 25 mg/dL [facility] Urea nitrogen/Creatinine [Mass ratio] 36 mg/mg High [facility] FASTING:NO FASTING: NO [facility] BASIC METABOLIC PANEL WITH A NION GAPon 09-16-2024 BUN/CREATININE RATIO SEE NOTE: Normal 6-22 [facility] Comment on above: Order Comment: FASTI NG:YES FASTING: YES Result Comment: Not Reported: BUN and Creatinine are within reference range. Performed By: #### 9 7670 #### [facility] [place] [address] Technical Director: Pradeep Núñez MD Calcium [Mass/Vol] 8.6 mg/dL Normal 8.6-10.4 [facility] Comment on above: Order Comment: FASTI NG:YES FASTING: YES Performed By: #### 9 1827 #### [facility] [place] [address] Technical Director: Pradeep Núñez MD Chloride [Moles/Vol] 88 mmol/L Low 98-110 [facility] Comment on above: Order Comment: FASTI NG:YES FASTING: YES Performed By: #### 9 0903 #### [facility] [place] [address] Technical Director: Pradeep Núñez MD CO2 [Moles/Vol] 27 mmol/L Normal 20-32 [facility] Comment on above: Order Comment: FASTI NG:YES FASTING: YES Performed By: #### 9 1715 #### [facility] [place] [address] Technical Director: Pradeep Núñez MD Creatinine [Mass/Vol] 0.63 mg/dL Normal 0.60-0.[address] [facility] [address] [facility] Comment on above: Order Comment: FASTI NG:YES FASTING: YES Performed By: #### 9 2028 #### [facility] [address], [address] [place] [address] Technical Director: Pradeep Núñez MD ELECTROLYTE BALANCE 11 mmol/L (calc) Normal 7-17 [facility] Comment on above: Order Comment: FASTI NG:YES FASTING: YES Performed By: #### 9 5508 #### [facility] [address], [address] [place] [address] Technical Director: Pradeep Núñez MD GFR/1.73 sq M.predicted among non-blacks MDRD (S/P/Bld) [Vol rate/Area] 90 mL/min/{1.73_m2} Normal > OR = 60 [facility] Comment on above: Order Comment: FASTI NG:YES FASTING: YES Performed By: #### 9 2498 #### [facility] [address], [address] [place] [address] Technical Director: Pradeep Núñez MD Glucose [Mass/Vol] 203 mg/dL High 65-99 [facility] Comment on above: Order Comment: FASTI NG:YES FASTING: YES Result Comment: Fasting reference interval For someone without known diabetes, a glucose value >125 mg/dL indicates that they may have diabetes and this should be confirmed with a follow-up test. Performed By: #### 9 1578 #### [facility] [address], [address] [place] [address] Technical Director: Pradeep Núñez MD Potassium [Moles/Vol] 4.7 mmol/L Normal 3.5-5.[address] [facility] Comment on above: Order Comment: FASTI NG:YES FASTING: YES Performed By: #### 9 6588 #### [facility] [address], [address] [place] [address] Technical Director: Pradeep Núñez MD Sodium [Moles/Vol] 126 mmol/L Low 135-146 [facility] Comment on above: Order Comment: FASTI NG:YES FASTING: YES Performed By: #### 9 6808 #### [facility] [address], [address] [place] [address] Technical Director: Pradeep Núñez MD Urea nitrogen [Mass/Vol] 20 mg/dL Normal 7-25 [facility] Comment on above: Order Comment: FASTI NG:YES FASTING: YES Performed By: #### 9 7428 #### [facility] [place] [address] Technical Director: Pradeep Núñez MD BASIC METABOLIC PANEL WITH A NERY ROTHon 09-09-2024 BUN/CREATININE RATIO SEE NOTE: Normal 6-22 [facility] Comment on above: Order Comment: FASTI NG:NO FASTING: NO Result Comment: Not Reported: BUN and Creatinine are within reference range. Performed By: #### 9 1298 #### [facility] [place] [address] Technical Director: Pradeep Núñez MD Calcium [Mass/Vol] 8.5 mg/dL Low 8.6-10.4 [facility] Comment on above: Order Comment: FASTI NG:NO FASTING: NO Performed By: #### 9 2698 #### [facility] [place] [address] Technical Director: Pradeep Núñez MD Chloride [Moles/Vol] 90 mmol/L Low 98-110 [facility] Comment on above: Order Comment: FASTI NG:NO FASTING: NO Performed By: #### 9 1700 #### [facility] [place] [address] Technical Director: Pradeep Núñez MD CO2 [Moles/Vol] 27 mmol/L Normal 20-32 [facility] Comment on above: Order Comment: FASTI NG:NO FASTING: NO Performed By: #### 9 3302 #### [facility] [place] [address] Technical Director: Pradeep Núñez MD Creatinine [Mass/Vol] 0.63 mg/dL Normal 0.60-0.[address] [facility] [address] [facility] Comment on above: Order Comment: FASTI NG:NO FASTING: NO Performed By: #### 9 4145 #### [facility] [address], [address] [place] [address] Technical Director: Pradeep Núñez MD ELECTROLYTE BALANCE 11 mmol/L (calc) Normal 7-17 [facility] Comment on above: Order Comment: FASTI NG:NO FASTING: NO Performed By: #### 9 0228 #### [facility] [address], [address] [place] [address] Technical Director: Pradeep Núñez MD GFR/1.73 sq M.predicted among non-blacks MDRD (S/P/Bld) [Vol rate/Area] 90 mL/min/{1.73_m2} Normal > OR = 60 [facility] Comment on above: Order Comment: FASTI NG:NO FASTING: NO Performed By: #### 9 2498 #### [facility] [address], [address] [place] [address] Technical Director: Pradeep Núñez MD Glucose [Mass/Vol] 213 mg/dL High 65-139 [facility] Comment on above: Order Comment: FASTI NG:NO FASTING: NO Result Comment: Non-fasting reference interval For someone without known diabetes, a glucose value >125 mg/dL indicates that they may have diabetes and this should be confirmed with a follow-up test. Performed By: #### 9 8788 #### [facility] [address], [address] [place] [address] Technical Director: Pradeep Núñez MD Potassium [Moles/Vol] 4.5 mmol/L Normal 3.5-5.[address] [facility] Comment on above: Order Comment: FASTI NG:NO FASTING: NO Performed By: #### 9 8638 #### [facility] [address], [address] [place] [address] Technical Director: Pradeep Núñez MD Sodium [Moles/Vol] 128 mmol/L Low 135-146 [facility] Comment on above: Order Comment: FASTI NG:NO FASTING: NO Performed By: #### 9 9848 #### [facility] [address], [address] [place] [address] Technical Director: Pradeep Núñez MD Urea nitrogen [Mass/Vol] 20 mg/dL Normal 7-25 [facility] Comment on above: Order Comment: FASTI NG:NO FASTING: NO Performed By: #### 9 9816 #### [facility] [address], [address] [place] [address] Technical Director: Pradeep Núñez MD Basic metabolic 2000 panelon 09-01-2024 Anion gap [Moles/Vol] 13 mmol/L 10 - 2 0 mmol/L [facility] Calcium [Mass/Vol] 7.8 mg/dL Low 8.6 - 10. 3 mg/dL [facility] Chloride [Moles/Vol] 105 mmol/L 98 - 10 7 mmol/L [facility] CO2 [Moles/Vol] 22 mmol/L 21 - 32 mmol/L [facility] Creatinine [Mass/Vol] 0.7 mg/dL 0.50 - 1.05 mg/dL [facility] GFR/1.73 sq M.predicted among non-blacks MDRD (S/P/Bld) [Vol rate/Area] 88 mL/min/{1.73_m2} - PINF [facility] Comment on above: Calculations of tiffani mated GFR are performed using the 2020 CKD-EPI Study Refit equation without the race variable for the IDMS-Traceable creatinine methods. https://jasn.asnjournals.org/content//ASN.2020 952167 Glucose [Mass/Vol] 86 mg/dL 74 - 99 mg/dL [facility] Interpretation and review of laboratory results Abnormal [facility] Potassium [Moles/Vol] 3.6 mmol/L 3.5 - 5.3 mmol/L [facility] Sodium [Moles/Vol] 136 mmol/L 136 - 145 mmol/L [facility] Urea nitrogen [Mass/Vol] 25 mg/dL High 6 - 23 mg/dL [facility] Anion gap [Moles/Vol] 13 mmol/L Normal 10-20 [facility] Comment on above: Performed By: #### 9 2320-6 #### JUANITO PERES ([id number]) [facility] ([facility]) [facility] [place] [address] Calcium [Mass/Vol] 7.8 mg/dL Low 8.6-10.3 [facility] Comment on above: Performed By: #### 9 4500-6 #### JUANITO PERES (64046) [facility] ([facility]) [address] [place] [address] 84391 Chloride [Moles/Vol] 105 mmol/L Normal 98-107 [facility] Comment on above: Performed By: #### 9 4500-6 #### JUANITO PERES ([id number]) [facility] ([facility]) [address] [place] [address] 43114 CO2 [Moles/Vol] 22 mmol/L Normal 21-32 [facility] Comment on above: Performed By: #### 9 4500-6 #### JUANITO PERES ([id number]) [facility] ([facility]) [address] [place] [address] 59529 Creatinine [Mass/Vol] 0.70 mg/dL Normal 0.50-1.05 [facility] Comment on above: Performed By: #### 9 4500-6 #### JUANITO PERES (57390) [facility] ([facility]) [address] [place] [address] 77079 Glomerular filtration rate/1.73 sq M.predicted 88 mL/min/1.73m*2 Normal >60 [facility] Comment on above: Result Comment: Calc ulations of estimated GFR are performed using the 2020 CKD-EPI Study Refit equation without the race variable for the IDMS-Traceable creatinine methods. https://jasn.asnjournals.org/content//ASN.2020 984233 Performed By: #### 9 4500-6 #### JUANITO PERES (46432) [facility] ([facility]) [address] [place] [address] 19994 Glucose [Mass/Vol] 86 mg/dL Normal 74-99 [facility] Comment on above: Performed By: #### 9 4500-6 #### JUANITO PERES ([id number]) [facility] ([facility]) [address] [place] [address] Potassium [Moles/Vol] 3.6 mmol/L Normal 3.5-5.3 [facility] Comment on above: Performed By: #### 9 4500-6 #### JUANITO PERES (98392) [facility] ([facility]) [address] [place] [address] 67581 Sodium [Moles/Vol] 136 mmol/L Normal 136-145 [facility] Comment on above: Performed By: #### 9 4500-6 #### JUANITO PERES (62831) [facility] ([facility]) [address] [place] [address] 36542 Urea nitrogen [Mass/Vol] 25 mg/dL High 01-30 [facility] Comment on above: Performed By: #### 9 4500-6 #### JUANITO PERES ([id number]) [facility] ([facility]) [address] [place] [address] 07325 CBC panel Auto (Bld)on 09-01 Erythrocyte distribution width (RBC) [Ratio] 13.2 % 11.5 - 14.5 % [facility] Hematocrit (Bld) [Volume fraction] 28 % Low 36.0 - 46.0 % [facility] Hemoglobin (Bld) [Mass/Vol] 9.2 g/dL Low 12.0 - 16.0 g/dL [facility] Interpretation and review of laboratory results Abnormal [facility] MCH (RBC) [Entitic mass] 30.3 pg 26.0 - 34.0 pg [facility] MCHC (RBC) [Mass/Vol] 32.9 g/dL 32.0 - 36.0 g/dL [facility] MCV (RBC) [Entitic vol] 92 fL 80 - 100 fL [facility] Nucleated RBC/100 WBC (Bld) [Ratio] 0 % [facility] Platelets (Bld) [#/Vol] 350 10*3/uL [facility] RBC (Bld) [#/Vol] 3.04 10*6/uL Low [facility] WBC (Bld) [#/Vol] 14.9 10*3/uL High [facility] Erythrocyte distribution width (RBC) [Ratio] 13.2 % Normal 11.5-14.5 [facility] Comment on above: Performed By: #### 4 8509-4 #### JUANITO PERES ([id number]) [facility] ([facility]) [address] [place] [address] Hematocrit (Bld) [Volume fraction] 28.0 % Low 36.0-46.0 [facility] Comment on above: Performed By: #### 4 8509-4 #### JUANITO PERES (73331) [facility] ([facility]) [address] [place] [address] Hemoglobin (Bld) [Mass/Vol] 9.2 g/dL Low 12.0-16.0 [facility] Comment on above: Performed By: #### 4 8509-4 #### JUANITO PREES (72848) [facility] ([facility]) [address] [place] [address] MCH (RBC) [Entitic mass] 30.3 pg Normal 26.0-34.0 [facility] Comment on above: Performed By: #### 4 8509-4 #### JUANITO PERES (41696) [facility] ([facility]) [address] [place] [address] MCHC (RBC) [Mass/Vol] 32.9 g/dL Normal 32.0-36.0 [facility] Comment on above: Performed By: #### 4 8509-4 #### JUANITO PERES (00345) [facility] ([facility]) [address] [place] [address] MCV (RBC) [Entitic vol] 92 fL Normal 80-100 [facility] Comment on above: Performed By: #### 4 8509-4 #### JUANITO PERES (95708) [facility] ([facility]) [address] [place] [address] 08011 Nucleated RBC/100 WBC (Bld) [Ratio] 0.0 /100 WBCs Normal 0.0-0.0 [facility] Comment on above: Performed By: #### 4 8509-4 #### JUANITO PERES (31936) [facility] ([facility]) [address] [place] [address] 98000 Platelets (Bld) [#/Vol] 350 x10*3/uL Normal 150-450 [facility] Comment on above: Performed By: #### 4 8509-4 #### JUANITO PERES (82329) [facility] ([facility]) [address] [place] [address] 50896 RBC (Bld) [#/Vol] 3.04 x10*6/uL Low 4.00-5.20 [facility] Comment on above: Performed By: #### 4 8509-4 #### JUANITO PERES (32011) [facility] ([facility]) [address] [place] [address] 59375 WBC (Bld) [#/Vol] 14.9 x10*3/uL High 4.4-11.3 [facility] Comment on above: Performed By: #### 4 8509-4 #### JUANITO PERES ([id number]) [facility] ([facility]) [address] [place] [address] 01778 CBC panel Auto (Bld)on 08-31 Erythrocyte distribution width (RBC) [Ratio] 12.8 % 11.5 - 14.5 % [facility] Hematocrit (Bld) [Volume fraction] 28.1 % Low 36.0 - 46.0 % [facility] Hemoglobin (Bld) [Mass/Vol] 9.3 g/dL Low 12.0 - 16.0 g/dL [facility] Interpretation and review of laboratory results Abnormal [facility] MCH (RBC) [Entitic mass] 30.3 pg 26.0 - 34.0 pg [facility] MCHC (RBC) [Mass/Vol] 33.1 g/dL 32.0 - 36.0 g/dL [facility] MCV (RBC) [Entitic vol] 92 fL 80 - 100 fL [facility] Nucleated RBC/100 WBC (Bld) [Ratio] 0 % [facility] Platelets (Bld) [#/Vol] 349 10*3/uL [facility] RBC (Bld) [#/Vol] 3.07 10*6/uL Low [facility] WBC (Bld) [#/Vol] 19.1 10*3/uL High [facility] Erythrocyte distribution width (RBC) [Ratio] 12.8 % Normal 11.5-14.5 [facility] Comment on above: Performed By: #### 4 8509-4 #### JUANITO PERES (77699) [facility] ([facility]) [address] [place] [address] 06213 Hematocrit (Bld) [Volume fraction] 28.1 % Low 36.0-46.0 [facility] Comment on above: Performed By: #### 4 8509-4 #### JUANITO PERES (39109) [facility] ([facility]) [address] [place] [address] 22300 Hemoglobin (Bld) [Mass/Vol] 9.3 g/dL Low 12.0-16.0 [facility] Comment on above: Performed By: #### 4 8509-4 #### JUANITO PERES (58193) [facility] ([facility]) [address] [place] [address] 59861 MCH (RBC) [Entitic mass] 30.3 pg Normal 26.0-34.0 [facility] Comment on above: Performed By: #### 4 8509-4 #### JUANITO PERES (39459) [facility] ([facility]) [address] [place] [address] 51975 MCHC (RBC) [Mass/Vol] 33.1 g/dL Normal 32.0-36.0 [facility] Comment on above: Performed By: #### 4 8509-4 #### JUANITO PERES ([id number]) [facility] ([facility]) [address] [place] [address] 35096 MCV (RBC) [Entitic vol] 92 fL Normal 80-100 [facility] Comment on above: Performed By: #### 4 8509-4 #### JUANITO PERES (40416) [facility] ([facility]) [address] [place] [address] 98732 Nucleated RBC/100 WBC (Bld) [Ratio] 0.0 /100 WBCs Normal 0.0-0.0 [facility] Comment on above: Performed By: #### 4 8509-4 #### JUANITO PERES (67547) [facility] ([facility]) [address] [place] [address] 91402 Platelets (Bld) [#/Vol] 349 x10*3/uL Normal 150-450 [facility] Comment on above: Performed By: #### 4 8509-4 #### JUANITO PERES (65944) [facility] ([facility]) [address] [place] [address] RBC (Bld) [#/Vol] 3.07 x10*6/uL Low 4.00-5.20 [facility] Comment on above: Performed By: #### 4 8509-4 #### JUANITO PERES ([id number]) [facility] ([facility]) [address] [place] [address] 56932 WBC (Bld) [#/Vol] 19.1 x10*3/uL High 4.4-11.3 [facility] Comment on above: Performed By: #### 4 8509-4 #### JUANITO PERES (48387) [facility] ([facility]) [address] [place] [address] 47553 Comprehensive metabolic 2000 panelon 08-31-2024 Albumin BCP dye [Mass/Vol] 3.6 g/dL 3.4 - 5.0 g/dL [facility] ALP [Catalytic activity/Vol] 58 U/L 33 - 136 U/L [facility] ALT With P-5'-P [Catalytic activity/Vol] 15 U/L 7 - 45 U/L [facility] Comment on above: Patients treated wit h Sulfasalazine may generate falsely decreased results for ALT. Anion gap [Moles/Vol] 12 mmol/L 10 - 2 0 mmol/L [facility] AST With P-5'-P [Catalytic activity/Vol] 15 U/L 9 - 39 U/L [facility] Bilirubin [Mass/Vol] 0.3 mg/dL 0.0 - 1 .2 mg/dL [facility] Calcium [Mass/Vol] 8.1 mg/dL Low 8.6 - 10. 3 mg/dL [facility] Chloride [Moles/Vol] 99 mmol/L 98 - 10 7 mmol/L [facility] CO2 [Moles/Vol] 24 mmol/L 21 - 32 mmol/L [facility] Creatinine [Mass/Vol] 0.74 mg/dL 0.50 - 1.05 mg/dL [facility] GFR/1.73 sq M.predicted among non-blacks MDRD (S/P/Bld) [Vol rate/Area] 82 mL/min/{1.73_m2} - PINF [facility] Comment on above: Calculations of tiffani mated GFR are performed using the 2020 CKD-EPI Study Refit equation without the race variable for the IDMS-Traceable creatinine methods. https://jasn.asnjournals.org/content/early/ASN.2020 284200 Glucose [Mass/Vol] 152 mg/dL High 74 - 99 mg/dL [facility] Interpretation and review of laboratory results Abnormal [facility] Potassium [Moles/Vol] 4 mmol/L 3.5 - 5.3 mmol/L [facility] Protein [Mass/Vol] 6.7 g/dL 6.4 - 8.2 g/dL [facility] Sodium [Moles/Vol] 131 mmol/L Low 136 - 145 mmol/L [facility] Urea nitrogen [Mass/Vol] 21 mg/dL 6 - 23 mg/dL [facility] Albumin BCP dye [Mass/Vol] 3.6 g/dL Normal 3.4-5.0 [facility] Comment on above: Performed By: #### 4 8509-4 #### JUANITO PERES (39646) [facility] ([facility]) [address] [place] [address] ALP [Catalytic activity/Vol] 58 U/L Normal 33-136 [facility] Comment on above: Performed By: #### 4 8509-4 #### JUANITO PERES (30317) [facility] ([facility]) [address] [place] [address] 58394 ALT With P-5'-P [Catalytic activity/Vol] 15 U/L Normal 7-45 [facility] Comment on above: Result Comment: Stephanie ents treated with Sulfasalazine may generate falsely decreased results for ALT. Performed By: #### 4 8509-4 #### JUANITO PERES (80542) [facility] ([facility]) [address] [place] [address] 69625 Anion gap [Moles/Vol] 12 mmol/L Normal 10-20 [facility] Comment on above: Performed By: #### 4 8509-4 #### JUANITO PERES (73236) [facility] ([facility]) [address] [place] [address] 90469 AST With P-5'-P [Catalytic activity/Vol] 15 U/L Normal 9-39 [facility] Comment on above: Performed By: #### 4 8509-4 #### JUANITO PERES (47193) [facility] ([facility]) [address] [place] [address] 59177 Bilirubin [Mass/Vol] 0.3 mg/dL Normal 0.0-1.2 [facility] Comment on above: Performed By: #### 4 8509-4 #### JUANITO PERES (10559) [facility] ([facility]) [address] [place] [address] 79266 Calcium [Mass/Vol] 8.1 mg/dL Low 8.6-10.3 [facility] Comment on above: Performed By: #### 4 8509-4 #### JUANITO PERES (42697) [facility] ([facility]) [address] [place] [address] Chloride [Moles/Vol] 99 mmol/L Normal 98-107 [facility] Comment on above: Performed By: #### 4 8509-4 #### JAUNITO PERES (61270) [facility] ([facility]) [facility] [place] [address] CO2 [Moles/Vol] 24 mmol/L Normal 21-32 [facility] Comment on above: Performed By: #### 4 8509-4 #### JUANITO PERES (69270) [facility] ([facility]) [address] [place] [address] 16515 Creatinine [Mass/Vol] 0.74 mg/dL Normal 0.50-1.05 [facility] Comment on above: Performed By: #### 4 8509-4 #### JUANITO PERES (46362) [facility] ([facility]) [address] [place] [address] 67977 Glomerular filtration rate/1.73 sq M.predicted 82 mL/min/1.73m*2 Normal >60 [facility] Comment on above: Result Comment: Calc ulations of estimated GFR are performed using the 2020 CKD-EPI Study Refit equation without the race variable for the IDMS-Traceable creatinine methods. https://jasn.asnjournals.org/content/early//ASN.2020 449940 Performed By: #### 4 8509-4 #### JUANITO PERES (23957) [facility] ([facility]) [address] [place] [address] 31102 Glucose [Mass/Vol] 152 mg/dL High 74-99 [facility] Comment on above: Performed By: #### 4 8509-4 #### JUANITO PERES (97953) [facility] ([facility]) [address] [place] [address] 67920 Potassium [Moles/Vol] 4.0 mmol/L Normal 3.5-5.3 [facility] Comment on above: Performed By: #### 4 8509-4 #### JUANITO PERES (63506) [facility] ([facility]) [address] [place], [place] [phone] Protein [Mass/Vol] 6.7 g/dL Normal 6.4-8.2 [facility] Comment on above: Performed By: #### 4 8509-4 #### JUANITO PERES (77758) [facility] ([facility]) [address] [place], [place] [phone] Sodium [Moles/Vol] 131 mmol/L Low 136-145 [facility] Comment on above: Performed By: #### 4 8509-4 #### JUANITO PERES (74094) [facility] ([facility]) [address] [place], [place] [phone] Urea nitrogen [Mass/Vol] 21 mg/dL Normal 6-23 [facility] Comment on above: Performed By: #### 4 8509-4 #### JUANITO PERES (53349) [facility] ([facility]) [address] [place], [place] [phone] XR Chest Single viewon 08-31 No focal infiltrate or pneumothorax is identified. MACRO: None. Signed by: Lázaro Maya 08/31/2024 10:06 AM Dictation workstation: [id number] [facility] WILLIAMODAL Interpreted By: Lázaro Maya, STUDY: XR CHEST 1 VIEW 08/30/2024 9:35 pm INDICATION: Signs/Symptoms:Aspirati on COMPARISON: 04/18/2024 ACCESSION NUMBER(S): [id number] ORDERING CLINICIAN: JORGE ROBERTS TECHNIQUE: A single AP portable radiograph of the chest was obtained. FINDINGS: Multiple cardiac monitoring leads are seen over the chest. No focal infiltrate, pleural effusion or pneumothorax is identified. The cardiac silhouette is within normal limits for size. MMODAL Lázaro Maya MD - 08/31/2024 Interpreted By: Lázaro Maya, STUDY: XR CHEST 1 VIEW 08/30/2024 9:35 pm INDICATION: Signs/Symptoms:Aspirati on COMPARISON: 04/18/2024 ACCESSION NUMBER(S): [id number] ORDERING CLINICIAN: JORGE ROBERTS TECHNIQUE: A single AP portable radiograph of the chest was obtained. FINDINGS: Multiple cardiac monitoring leads are seen over the chest. No focal infiltrate, pleural effusion or pneumothorax is identified. The cardiac silhouette is within normal limits for size. IMPRESSION: No focal infiltrate or pneumothorax is identified. MACRO: None. Signed by: Lázaro Maya 08/31/2024 10:06 AM Dictation workstation: [id number] [facility] Work Phone: XR Chest Single viewOrdered By: Lázaro Maya on 08-31-2024 [facility] Work Phone: Basic metabolic 2000 panelon 08-30-2024 Anion gap [Moles/Vol] 12 mmol/L 10 - 2 0 mmol/L [facility] Calcium [Mass/Vol] 8.3 mg/dL Low 8.6 - 10. 3 mg/dL [facility] Chloride [Moles/Vol] 94 mmol/L Low 98 - 10 7 mmol/L [facility] CO2 [Moles/Vol] 26 mmol/L 21 - 32 mmol/L [facility] Creatinine [Mass/Vol] 0.72 mg/dL 0.50 - 1.05 mg/dL [facility] GFR/1.73 sq M.predicted among non-blacks MDRD (S/P/Bld) [Vol rate/Area] 85 mL/min/{1.73_m2} - PINF [facility] Comment on above: Calculations of tiffani mated GFR are performed using the 2020 CKD-EPI Study Refit equation without the race variable for the IDMS-Traceable creatinine methods. https://jasn.asnjournals.org/content/early//ASN.2020 817562 Glucose [Mass/Vol] 174 mg/dL High 74 - 99 mg/dL [facility] Interpretation and review of laboratory results Abnormal [facility] Potassium [Moles/Vol] 4.1 mmol/L 3.5 - 5.3 mmol/L [facility] Sodium [Moles/Vol] 128 mmol/L Low 136 - 145 mmol/L [facility] Urea nitrogen [Mass/Vol] 17 mg/dL 6 - 23 mg/dL [facility] Anion gap [Moles/Vol] 12 mmol/L Normal 10-20 [facility] Comment on above: Performed By: #### 4 8509-4 #### JUANITO PERES (51567) [facility] ([facility]) [facility] [place] [address] Calcium [Mass/Vol] 8.3 mg/dL Low 8.6-10.3 [facility] Comment on above: Performed By: #### 4 8509-4 #### JUANITO PERES (62655) [facility] ([facility]) [address] [place] [address] 16378 Chloride [Moles/Vol] 94 mmol/L Low 98-107 [facility] Comment on above: Performed By: #### 4 8509-4 #### JUANITO PERES (42084) [facility] ([facility]) [address] [place] [address] 46295 CO2 [Moles/Vol] 26 mmol/L Normal 21-32 [facility] Comment on above: Performed By: #### 4 8509-4 #### JUANITO PERES (78306) [facility] ([facility]) [facility] [place] [address] Creatinine [Mass/Vol] 0.72 mg/dL Normal 0.50-1.05 [facility] Comment on above: Performed By: #### 4 8509-4 #### JUANITO PERES (40968) [facility] ([facility]) [address] [place] [address] 57920 Glomerular filtration rate/1.73 sq M.predicted 85 mL/min/1.73m*2 Normal >60 [facility] Comment on above: Result Comment: Calc ulations of estimated GFR are performed using the 2020 CKD-EPI Study Refit equation without the race variable for the IDMS-Traceable creatinine methods. https://jasn.asnjournals.org/content//ASN.2020 717033 Performed By: #### 4 8509-4 #### JUANITO PERES (23438) [facility] ([facility]) [address] [place] [address] 14170 Glucose [Mass/Vol] 174 mg/dL High 74-99 [facility] Comment on above: Performed By: #### 4 8509-4 #### JUANITO PERES (40417) [facility] ([facility]) [address] [place] [address] 97236 Potassium [Moles/Vol] 4.1 mmol/L Normal 3.5-5.3 [facility] Comment on above: Performed By: #### 4 8509-4 #### JUANITO PERES (06260) [facility] ([facility]) [address] [place] [address] 06531 Sodium [Moles/Vol] 128 mmol/L Low 136-145 [facility] Comment on above: Performed By: #### 4 8509-4 #### JUANITO PERES (49009) [facility] ([facility]) [address] [place] [address] 25512 Urea nitrogen [Mass/Vol] 17 mg/dL Normal 6-23 [facility] Comment on above: Performed By: #### 4 8509-4 #### JUANITO PERES (76479) [facility] ([facility]) [address] [place] [id number] Anion gap [Moles/Vol] 13 mmol/L 10 - 2 0 mmol/L [facility] Calcium [Mass/Vol] 9 mg/dL 8.6 - 10. 3 mg/dL [facility] Chloride [Moles/Vol] 85 mmol/L Low 98 - 10 7 mmol/L [facility] CO2 [Moles/Vol] 27 mmol/L 21 - 32 mmol/L [facility] Creatinine [Mass/Vol] 0.68 mg/dL 0.50 - 1.05 mg/dL [facility] GFR/1.73 sq M.predicted among non-blacks MDRD (S/P/Bld) [Vol rate/Area] 88 mL/min/{1.73_m2} - PINF [facility] Comment on above: Calculations of tiffani mated GFR are performed using the 2020 CKD-EPI Study Refit equation without the race variable for the IDMS-Traceable creatinine methods. https://jasn.asnjournals.org/content/early//ASN.2020 856043 Glucose [Mass/Vol] 176 mg/dL High 74 - 99 mg/dL [facility] Interpretation and review of laboratory results Abnormal [facility] Potassium [Moles/Vol] 4.6 mmol/L 3.5 - 5.3 mmol/L [facility] Sodium [Moles/Vol] 120 mmol/L Critically low 136 - 1 45 mmol/L [facility] Urea nitrogen [Mass/Vol] 20 mg/dL 6 - 23 mg/dL [facility] Anion gap [Moles/Vol] 13 mmol/L Normal 10-20 [facility] Comment on above: Performed By: #### 4 8509-4 #### JUANITO PERES (35325) [facility] ([facility]) [facility] [place] [address] Calcium [Mass/Vol] 9.0 mg/dL Normal 8.6-10.3 [facility] Comment on above: Performed By: #### 4 8509-4 #### JUANITO PERES (00531) [facility] ([facility]) [address] [place] [address] Chloride [Moles/Vol] 85 mmol/L Low 98-107 [facility] Comment on above: Performed By: #### 4 8509-4 #### JUANITO PERES (73026) [facility] ([facility]) [facility] [place] [address] CO2 [Moles/Vol] 27 mmol/L Normal 21-32 [facility] Comment on above: Performed By: #### 4 8509-4 #### JUANITO PERES (54254) [facility] ([facility]) [address] [place] [address] Creatinine [Mass/Vol] 0.68 mg/dL Normal 0.50-1.05 [facility] Comment on above: Performed By: #### 4 8509-4 #### JUANITO PERES (95705) [facility] ([facility]) [address] [place] [address] 48652 Glomerular filtration rate/1.73 sq M.predicted 88 mL/min/1.73m*2 Normal >60 [facility] Comment on above: Result Comment: Calc ulations of estimated GFR are performed using the 2020 CKD-EPI Study Refit equation without the race variable for the IDMS-Traceable creatinine methods. https://jasn.asnjournals.org/content/early/ASN.2020 908203 Performed By: #### 4 8509-4 #### JUANITO PERES (05455) [facility] ([facility]) [address] [place] [address] 60959 Glucose [Mass/Vol] 176 mg/dL High 74-99 [facility] Comment on above: Performed By: #### 4 8509-4 #### JUANITO PERES (45424) [facility] ([facility]) [address] [place] [address] 78715 Potassium [Moles/Vol] 4.6 mmol/L Normal 3.5-5.3 [facility] Comment on above: Performed By: #### 4 8509-4 #### JUANITO PERES (68792) [facility] ([facility]) [address] [place] [address] 55124 Sodium [Moles/Vol] 120 mmol/L Critically low 136-145 [facility] Comment on above: Performed By: #### 4 8509-4 #### JUANITO PERES (62331) [facility] ([facility]) [address] [place] [address] 93833 Urea nitrogen [Mass/Vol] 20 mg/dL Normal 6-23 [facility] Comment on above: Performed By: #### 4 8509-4 #### JUANITO PERES (18809) [facility] ([facility]) [address] [place] [address] Blood type and Indirect anti body screen panel (Bld)on 08-30-2024 ABO group Nom (Bld) O [facility] Blood group antibody screen Ql Negative [facility] D Ag Ql (Bld) Positive [facility] ABO group Nom (Bld) O Normal [facility] Comment on above: Performed By: #### 4 8509-4 #### JUANITO PERES (99163) [facility] ([facility]) [address] [place] [address] Blood group antibody screen Ql Negative Normal [facility] Comment on above: Performed By: #### 4 8509-4 #### JUANITO PERES (41885) [facility] ([facility]) [address] [place] [address] D Ag Ql (Bld) Positive [facility] Comment on above: Performed By: #### 4 8509-4 #### JUANITO PERES (91551) [facility] ([facility]) [address] [place], [place] [id number] CBC W Auto Differential pane l (Bld)on 08-30-2024 Basophils (Bld) [#/Vol] 0.05 10*3/uL [facility] Basophils/100 WBC (Bld) 0.2 % 0.0 - 2.0 % [facility] Eosinophils (Bld) [#/Vol] 0.12 10*3/uL [facility] Eosinophils/100 WBC (Bld) 0.6 % 0.0 - 6.0 % [facility] Erythrocyte distribution width (RBC) [Ratio] 12.5 % 11.5 - 14.5 % [facility] Hematocrit (Bld) [Volume fraction] 34.4 % Low 36.0 - 46.0 % [facility] Hemoglobin (Bld) [Mass/Vol] 11.7 g/dL Low 12.0 - 16.0 g/dL [facility] Immature granulocytes (Bld) [#/Vol] 0.12 10*3/uL [facility] Immature granulocytes/100 WBC (Bld) 0.6 % 0.0 - 0.9 % [facility] Comment on above: Immature Granulocyte Count (IG) includes promyelocytes, myelocytes and metamyelocytes but does not include bands. Percent differential counts (%) should be interpreted in the context of the absolute cell counts (cells/UL). Interpretation and review of laboratory results Abnormal [facility] Lymphocytes (Bld) [#/Vol] 1.25 10*3/uL [facility] Lymphocytes/100 WBC (Bld) 6 % 13.0 - 44.0 % [facility] MCH (RBC) [Entitic mass] 30.4 pg 26.0 - 34.0 pg [facility] MCHC (RBC) [Mass/Vol] 34 g/dL 32.0 - 36.0 g/dL [facility] MCV (RBC) [Entitic vol] 89 fL 80 - 100 fL [facility] Monocytes (Bld) [#/Vol] 1.03 10*3/uL High [facility] Monocytes/100 WBC (Bld) 5 % 2.0 - 10.0 % [facility] Neutrophils (Bld) [#/Vol] 18.12 10*3/uL High [facility] Comment on above: Percent differential counts (%) should be interpreted in the context of the absolute cell counts (cells/uL). Neutrophils/100 WBC (Bld) 87.6 % 40.0 - 80.0 % [facility] Nucleated RBC/100 WBC (Bld) [Ratio] 0 % [facility] Platelets (Bld) [#/Vol] 425 10*3/uL [facility] RBC (Bld) [#/Vol] 3.85 10*6/uL Low [facility] WBC (Bld) [#/Vol] 20.7 10*3/uL High [facility] Basophils (Bld) [#/Vol] 0.05 x10*3/uL Normal 0.00-0.10 [facility] Comment on above: Performed By: #### 4 8509-4 #### SOLOMON JA (03503) [facility] ([facility]) [address] [place] [address] Basophils/100 WBC (Bld) 0.2 % Normal 0.0-2.0 [facility] Comment on above: Performed By: #### 4 8509-4 #### JUANITO PERES (92085) [facility] ([facility]) [address] [place] [address] 50380 Eosinophils (Bld) [#/Vol] 0.12 x10*3/uL Normal 0.00-0.40 [facility] Comment on above: Performed By: #### 4 8509-4 #### JUANITO PERES (59328) [facility] ([facility]) [address] [place] [address] 38578 Eosinophils/100 WBC (Bld) 0.6 % Normal 0.0-6.0 [facility] Comment on above: Performed By: #### 4 8509-4 #### JUANITO PERES (07823) [facility] ([facility]) [address] [place] [address] 89450 Erythrocyte distribution width (RBC) [Ratio] 12.5 % Normal 11.5-14.5 [facility] Comment on above: Performed By: #### 4 8509-4 #### JUANITO PERES (22757) [facility] ([facility]) [address] [place] [address] 00235 Hematocrit (Bld) [Volume fraction] 34.4 % Low 36.0-46.0 [facility] Comment on above: Performed By: #### 4 8509-4 #### JUANITO PERES (87448) [facility] ([facility]) [address] [place] [address] 07385 Hemoglobin (Bld) [Mass/Vol] 11.7 g/dL Low 12.0-16.0 [facility] Comment on above: Performed By: #### 4 8509-4 #### JUANITO PERES (10452) [facility] ([facility]) [address] [place] [address] 82296 Immature granulocytes (Bld) [#/Vol] 0.12 x10*3/uL Normal 0.00-0.50 [facility] Comment on above: Performed By: #### 4 8509-4 #### JUANITO PERES (60249) [facility] ([facility]) [address] [place] [address] 73452 Immature granulocytes/100 WBC (Bld) 0.6 % Normal 0.0-0.9 [facility] Comment on above: Result Comment: Arti ture Granulocyte Count (IG) includes promyelocytes, myelocytes and metamyelocytes but does not include bands. Percent differential counts (%) should be interpreted in the context of the absolute cell counts (cells/UL). Performed By: #### 4 8509-4 #### JUANITO PERES (39368) [facility] ([facility]) [address] [place] [address] Lymphocytes (Bld) [#/Vol] 1.25 x10*3/uL Normal 0.80-3.00 [facility] Comment on above: Performed By: #### 4 8509-4 #### JUANITO PERES (02292) [facility] ([facility]) [address] [place] [address] 88251 Lymphocytes/100 WBC (Bld) 6.0 % Normal 13.0-44.0 [facility] Comment on above: Performed By: #### 4 8509-4 #### JUANITO PERES (61671) [facility] ([facility]) [address] [place] [address] 05689 MCH (RBC) [Entitic mass] 30.4 pg Normal 26.0-34.0 [facility] Comment on above: Performed By: #### 4 8509-4 #### JUANITO PERES (07771) [facility] ([facility]) [address] [place] [address] 97413 MCHC (RBC) [Mass/Vol] 34.0 g/dL Normal 32.0-36.0 [facility] Comment on above: Performed By: #### 4 8509-4 #### JUANITO PERES (70417) [facility] ([facility]) [address] [place] [address] 16091 MCV (RBC) [Entitic vol] 89 fL Normal 80-100 [facility] Comment on above: Performed By: #### 4 8509-4 #### JUANITO PERES (87828) [facility] ([facility]) [address] [place] [address] 66343 Monocytes (Bld) [#/Vol] 1.03 x10*3/uL High 0.05-0.80 [facility] Comment on above: Performed By: #### 4 8509-4 #### JUANITO PERES (07384) [facility] ([facility]) [address] [place] [address] 22137 Monocytes/100 WBC (Bld) 5.0 % Normal 2.0-10.0 [facility] Comment on above: Performed By: #### 4 8509-4 #### JUANITO PERES (74646) [facility] ([facility]) [address] [place] [address] 34343 Neutrophils (Bld) [#/Vol] 18.12 x10*3/uL High 1.60-5.50 [facility] Comment on above: Result Comment: Perc ent differential counts (%) should be interpreted in the context of the absolute cell counts (cells/uL). Performed By: #### 4 8509-4 #### JUANITO PERES (02601) [facility] ([facility]) [address] [place] [address] 37759 Neutrophils/100 WBC (Bld) 87.6 % Normal 40.0-80.0 [facility] Comment on above: Performed By: #### 4 8509-4 #### JUANITO PERES (88571) [facility] ([facility]) [address] [place] [address] 37412 Nucleated RBC/100 WBC (Bld) [Ratio] 0.0 /100 WBCs Normal 0.0-0.0 [facility] Comment on above: Performed By: #### 4 8509-4 #### JUANITO PERES (69749) [facility] ([facility]) [address] [place] [address] 87493 Platelets (Bld) [#/Vol] 425 x10*3/uL Normal 150-450 [facility] Comment on above: Performed By: #### 4 8509-4 #### JUANITO PERES (39382) [facility] ([facility]) [address] [place] [address] RBC (Bld) [#/Vol] 3.85 x10*6/uL Low 4.00-5.20 [facility] Comment on above: Performed By: #### 4 8509-4 #### JUANITO PERES (83596) [facility] ([facility]) [address] [place] [address] 47137 WBC (Bld) [#/Vol] 20.7 x10*3/uL High 4.4-11.3 [facility] Comment on above: Performed By: #### 4 8509-4 #### JUANITO PERES (91251) [facility] ([facility]) [address] [place] [address] Critical Careon 08-30-2024 Marc Asher DO 08/30/2024 9:19 PM Critical Care Performed by: Marc Asher DO Authorized by: Marc Asher DO Critical care provider statement: Critical care time (minutes): 25 Critical care time was exclusive of: Separately billable procedures and treating other patients Critical care was necessary to treat or prevent imminent or life-threatening deterioration of the following conditions: angioedema of the tongue. Critical care was time spent personally by me on the following activities: Development of treatment plan with patient or surrogate, discussions with primary provider, evaluation of patient's response to treatment, examination of patient, obtaining history from patient or surrogate, ordering and performing treatments and interventions, ordering and review of laboratory studies and re-evaluation of patient's condition Care discussed with: admitting provider [facility] Work Phone: [facility] Work Phone: No Panel Informationon 08-30 Dispense Status TR [facility] PRODUCT BLOOD TYPE 8400 [facility] Unit ABO AB [facility] Unit RH Positive [facility] Extra Tube Hold for add-ons. [facility] Comment on above: Auto resulted. [facility] Prepare Plasma: 2 Unitson Blood Expiration Date 09/04/2024 8:10:00 AM EST [facility] Blood Expiration Date 09/04/2024 8:12:00 AM EST [facility] PRODUCT CODE [id number] [facility] PRODUCT CODE [id number] [facility] Unit Number [id number] [facility] Unit Number [id number] [facility] UNIT VOLUME 327 [facility] UNIT VOLUME 204 [facility] VERAB/VERIFY ABORHon 025 ABO group Nom (Bld) O Normal [facility] Comment on above: Order Comment: This assay is an in vitro diagnostic multiplex nucleic acid amplification test for the detection and discrimination of Influenza A & B from nasopharyngeal specimens, and has been validated for use at [facility]. Negative results do not preclude Influenza A/B infections, and should not be used as the sole basis for diagnosis, treatment, or other management decisions. If Influenza A/B and RSV PCR results are negative, testing for Parainfluenza virus, Adenovirus and Metapneumovirus is routinely performed for [facility] pediatric oncology and intensive care inpatients, and is available on other patients by placing an add-on request. Performed By: #### 4 8509-4 #### SOLOMON JA (70811) [facility] ([facility]) [address] [place] [address] D Ag Ql (Bld) Positive Normal [facility] Comment on above: Order Comment: This assay is an in vitro diagnostic multiplex nucleic acid amplification test for the detection and discrimination of Influenza A & B from nasopharyngeal specimens, and has been validated for use at [facility]. Negative results do not preclude Influenza A/B infections, and should not be used as the sole basis for diagnosis, treatment, or other management decisions. If Influenza A/B and RSV PCR results are negative, testing for Parainfluenza virus, Adenovirus and Metapneumovirus is routinely performed for [facility] pediatric oncology and intensive care inpatients, and is available on other patients by placing an add-on request. Performed By: #### 4 8509-4 #### JUANITO PERES (97885) [facility] ([facility]) [address] [place] [address] 15348 VERIFY ABO/Rh Group Teston 0 08-30-2024 ABO group Nom (Bld) O [facility] D Ag Ql (Bld) Positive [facility] XR CHEST 1 VIEWon 08-30-2024 XR CHEST 1 VIEW Interpreted By: Lázaro Maya, STUDY: XR CHEST 1 VIEW 08/30/2024 9:35 pm INDICATION: Signs/Symptoms:Aspirati on COMPARISON: 04/18/2024 ACCESSION NUMBER(S): [id number] ORDERING CLINICIAN: JORGE ROBERTS TECHNIQUE: A single AP portable radiograph of the chest was obtained. FINDINGS: Multiple cardiac monitoring leads are seen over the chest. No focal infiltrate, pleural effusion or pneumothorax is identified. The cardiac silhouette is within normal limits for size. IMPRESSION: No focal infiltrate or pneumothorax is identified. MACRO: None. Signed by: Lázaro Maay 08/31/2024 10:06 AM Dictation workstation: [id number] [facility] XR Chest Single viewon 08-30 Radiology Study observation (narrative) [facility] Work Phone: Basic metabolic 2000 panelon 08-26-2024 Anion gap [Moles/Vol] 15 mmol/L Normal [facility] Comment on above: Performed By: #### 1 6362-6 #### JUANITO PERES (06384) [facility] ([facility]) [address] [place] [address] 00637 Calcium [Mass/Vol] 8.5 mg/dL Low 8.6-10.3 [facility] Comment on above: Performed By: #### 1 6362-6 #### JUANITO PERES (81813) [facility] ([facility]) [facility] [place] [address] Chloride [Moles/Vol] 83 mmol/L Low 98-107 [facility] Comment on above: Result Comment: Conf irmed by repeat analysis Performed By: #### 1 6362-6 #### JUANITO PERES (94031) [facility] ([facility]) [address] [place] [address] 73754 CO2 [Moles/Vol] 26 mmol/L Normal 21-32 [facility] Comment on above: Performed By: #### 1 6362-6 #### JUANITO PERES (61950) [facility] ([facility]) [address] [place] [address] 76126 Creatinine [Mass/Vol] 0.62 mg/dL Normal 0.50-1.05 [facility] Comment on above: Performed By: #### 1 6362-6 #### JUANITO PERES (56733) [facility] ([facility]) [address] [place] [address] 75951 Glomerular filtration rate/1.73 sq M.predicted 90 mL/min/1.73m*2 Normal >60 [facility] Comment on above: Result Comment: Calc ulations of estimated GFR are performed using the 2020 CKD-EPI Study Refit equation without the race variable for the IDMS-Traceable creatinine methods. https://jasn.asnjournals.org/content/early//ASN.2020 166107 Performed By: #### 1 6362-6 #### JUANITO PERES (18158) [facility] ([facility]) [address] [place] [address] 87452 Glucose [Mass/Vol] 186 mg/dL High 74-99 [facility] Comment on above: Performed By: #### 1 6362-6 #### JUANITO PERES (39439) [facility] ([facility]) [address] [place] [address] 52933 Potassium [Moles/Vol] 4.7 mmol/L Normal 3.5-5.3 [facility] Comment on above: Performed By: #### 1 6362-6 #### JUANITO PERES (20075) [facility] ([facility]) [address] [place] [address] 02705 Sodium [Moles/Vol] 119 mmol/L Critically low 136-145 [facility] Comment on above: Result Comment: Conf irmed by repeat analysis Performed By: #### 1 6362-6 #### JUANITO PERES (40492) [facility] ([facility]) [address] [place] [address] 73772 Urea nitrogen [Mass/Vol] 23 mg/dL Normal 6-23 [facility] Comment on above: Performed By: #### 1 6362-6 #### JUANITO PERES (71051) [facility] ([facility]) [address] [place] [address] 25996 Basic metabolic 2000 panelon 07-25-2024 Anion gap [Moles/Vol] 13 mmol/L Normal 10-20 [facility] Comment on above: Performed By: #### 1 6362-6 #### JUANITO PERES (86300) [facility] ([facility]) [address] [place] [address] 76966 Calcium [Mass/Vol] 8.6 mg/dL Normal 8.6-10.3 [facility] Comment on above: Performed By: #### 1 6362-6 #### JUANITO PERES (80723) [facility] ([facility]) [address] [place] [address] 74264 Chloride [Moles/Vol] 92 mmol/L Low 98-107 [facility] Comment on above: Performed By: #### 1 6362-6 #### JUANITO PERES (72189) [facility] ([facility]) [address] [place] [address] 01553 CO2 [Moles/Vol] 26 mmol/L Normal 21-32 [facility] Comment on above: Performed By: #### 1 6362-6 #### JUANITO PERES (51043) [facility] ([facility]) [address] [place] [address] 25743 Creatinine [Mass/Vol] 0.58 mg/dL Normal 0.50-1.05 [facility] Comment on above: Performed By: #### 1 6362-6 #### JUANITO PERES (40425) [facility] ([facility]) [address] [place] [address] 59422 GFR/1.73 sq M.predicted MDRD (S/P/Bld) [Vol rate/Area] mL/min/{1.73_m2} Normal >60 [facility] Comment on above: Result Comment: Calc ulations of estimated GFR are performed using the 2020 CKD-EPI Study Refit equation without the race variable for the IDMS-Traceable creatinine methods. https://jasn.asnjournals.org/content/early//ASN.2020 217962 Performed By: #### 1 6362-6 #### JUANITO PERES (63479) [facility] ([facility]) [address] [place] [address] 54579 Glucose [Mass/Vol] 133 mg/dL High 74-99 [facility] Comment on above: Performed By: #### 1 6362-6 #### JUANITO PERES (11194) [facility] ([facility]) [address] [place] [address] 08496 Potassium [Moles/Vol] 4.9 mmol/L Normal 3.5-5.3 [facility] Comment on above: Result Comment: MILD HEMOLYSIS DETECTED. The result may be falsely elevated due to hemolysis or other interferents. Clinical correlation is recommended. Repeat testing may be considered. Performed By: #### 1 6362-6 #### JUANITO PERES (22339) [facility] ([facility]) [address] [place] [address] 62525 Sodium [Moles/Vol] 126 mmol/L Low 136-145 [facility] Comment on above: Performed By: #### 1 6362-6 #### JUANITO PERES (43033) [facility] ([facility]) [address] [place] [address] 77016 Urea nitrogen [Mass/Vol] 21 mg/dL Normal 6-23 [facility] Comment on above: Performed By: #### 1 6362-6 #### JUANITO PERES ([id number]) [facility] ([facility]) [address] [place] [address] [place] [address] Comprehensive metabolic 2000 panelon 06-27-2024 Albumin BCP dye [Mass/Vol] 3.7 g/dL Normal 3.4-5.0 [facility] Comment on above: Performed By: #### 1 6362-6 #### JUANITO PERES (58530) [facility] ([facility]) [address] [place] [address] ALP [Catalytic activity/Vol] 89 U/L Normal 33-136 [facility] Comment on above: Performed By: #### 1 6362-6 #### JUANITO PERES (42910) [facility] ([facility]) [address] [place] [address] 30856 ALT With P-5'-P [Catalytic activity/Vol] 20 U/L Normal 7-45 [facility] Comment on above: Result Comment: Stephanie ents treated with Sulfasalazine may generate falsely decreased results for ALT. Performed By: #### 1 6362-6 #### JUANITO PERES ([id number]) [facility] ([facility]) [address] [place] [address] 47993 Anion gap [Moles/Vol] 14 mmol/L Normal 10-20 [facility] Comment on above: Performed By: #### 1 6362-6 #### JUANITO PERES ([id number]) [facility] ([facility]) [address] [place] [address] 97995 AST With P-5'-P [Catalytic activity/Vol] 19 U/L Normal 9-39 [facility] Comment on above: Performed By: #### 1 6362-6 #### JUANITO PERES (19792) [facility] ([facility]) [facility] [place] [address] Bilirubin [Mass/Vol] 0.3 mg/dL Normal 0.0-1.2 [facility] Comment on above: Performed By: #### 1 6362-6 #### JUANITO PERES ([id number]) [facility] ([facility]) [address] [place] [address] 97925 Calcium [Mass/Vol] 8.6 mg/dL Normal 8.6-10.3 [facility] Comment on above: Performed By: #### 1 6362-6 #### JUANITO PERES (32310) [facility] ([facility]) [address] [place] [address] 14670 Chloride [Moles/Vol] 92 mmol/L Low 98-107 [facility] Comment on above: Performed By: #### 1 6362-6 #### JUANITO PERES (42909) [facility] ([facility]) [address] [place] [address] 78980 CO2 [Moles/Vol] 24 mmol/L Normal 21-32 [facility] Comment on above: Performed By: #### 1 6362-6 #### JUANITO PERES (68984) [facility] ([facility]) [address] [place] [address] 89021 Creatinine [Mass/Vol] 0.63 mg/dL Normal 0.50-1.05 [facility] Comment on above: Performed By: #### 1 6362-6 #### JUANITO PERES ([id number]) [facility] ([facility]) [address] [place] [address] 39798 Glomerular filtration rate/1.73 sq M.predicted 90 mL/min/1.73m*2 Normal >60 [facility] Comment on above: Result Comment: Calc ulations of estimated GFR are performed using the 2020 CKD-EPI Study Refit equation without the race variable for the IDMS-Traceable creatinine methods. https://jasn.asnjournals.org/content/early//ASN.2020 061291 Performed By: #### 1 6362-6 #### JUANITO PERES (56286) [facility] ([facility]) [address] [place] [address] 50515 Glucose [Mass/Vol] 119 mg/dL High 74-99 [facility] Comment on above: Performed By: #### 1 6362-6 #### JUANITO PERES (94224) [facility] ([facility]) [address] [place] [address] 54103 Potassium [Moles/Vol] 4.7 mmol/L Normal 3.5-5.3 [facility] Comment on above: Performed By: #### 1 6362-6 #### JUANITO PERES (59190) [facility] ([facility]) [address] [place] [address] 48693 Protein [Mass/Vol] 6.4 g/dL Normal 6.4-8.2 [facility] Comment on above: Performed By: #### 1 6362-6 #### JUANITO PERES (55440) [facility] ([facility]) [address] [place] [address] 15900 Sodium [Moles/Vol] 125 mmol/L Low 136-145 [facility] Comment on above: Performed By: #### 1 6362-6 #### JUANITO PERES ([id number]) [facility] ([facility]) [address] [place] [address] 78779 Urea nitrogen [Mass/Vol] 22 mg/dL Normal 6-23 [facility] Comment on above: Performed By: #### 1 6362-6 #### JUANITO PERES (61007) [facility] ([facility]) [address] [place] [address] 33890 HbA1c (Bld) [Mass fraction]o n 06-27-2024 Average glucose Estimated from glycated hemoglobin (Bld) [Mass/Vol] 126 mg/dL Normal Not Established [facility] Comment on above: Order Comment: Diagn osis of Ihqrhtbf-KwgdnwTpo-Ctrdjbeg: < or = 5.6%Increased risk for developing diabetes: 5.7-6.4%Diagnostic of diabetes: > or = 6.5% Performed By: #### 1 6362-6 #### JUANITO PERES (58752) [facility] ([facility]) [address] [place] [address] 09972 Hemoglobin A1c/Hemoglobin.to sterling 06-27-2024 HbA1c (Bld) [Mass fraction] 6.0 % High See comment [facility] Comment on above: Order Comment: Diagn osis of Hfnndaej-UpnsgdIlh-Hrmlnvxq: < or = 5.6%Increased risk for developing diabetes: 5.7-6.4%Diagnostic of diabetes: > or = 6.5% Performed By: #### 1 6362-6 #### JUANITO PERES (47392) [facility] ([facility]) [address] [place] [address] 95714 Bacteria identifiedon 2023 Bacteria identified Cx Nom (U) Test: Urine Culture Specimen Source: Clean Catch/Voided Specimen Type: Urine Specimen Date: 05/04/20241434 Result Date: 05/06/20241604 Result Status: Edited Result - FINAL Abnormal: Yes Resulting Lab: [facility] [id number] [place] [address] CULTURE 20,000 - 80,000 Aerococcus urinae (Abnormal) Abnormal [facility] Comment on above: Performed By: #### 4 8509-4 #### JUANITO PERES (68095) [facility] ([facility]) [address] [place] [address] Urinalysis complete panel (U )on 05-04-2024 Appearance (U) Turbid Normal Clear [facility] Comment on above: Performed By: #### 2 524-7 #### JUANITO PERES ([id number]) [facility] ([facility]) [address] [place] [address] 45888 Bilirubin (U) [Mass/Vol] Negative Normal NEGATIVE [facility] Comment on above: Performed By: #### 2 524-7 #### JUANITO PERES (75626) [facility] ([facility]) [address] [place] [address] 64764 Color (U) Light-Yellow Normal Light-Yellow , Yellow, Dark-Yellow [facility] Comment on above: Performed By: #### 2 524-7 #### JUANITO PERES (47799) [facility] ([facility]) [address] [place], [place] [phone] Glucose Auto test strip (U) [Mass/Vol] Normal Normal Normal [facility] Comment on above: Performed By: #### 2 524-7 #### JUANITO PERES (08235) [facility] ([facility]) [facility] [place] [address] Ketones (U) [Mass/Vol] Negative Normal NEGATIVE [facility] Comment on above: Performed By: #### 2 524-7 #### JUANITO PERES (24684) [facility] ([facility]) [address] [place] [address] 02611 Leukocyte esterase Auto test strip Ql (U) 25 Rogelio/???L Abnormal NEGATIVE [facility] Comment on above: Performed By: #### 2 524-7 #### JUANITO PERES (55050) [facility] ([facility]) [address] [place] [address] 01875 Nitrite Auto test strip Ql (U) Negative Normal NEGATIVE [facility] Comment on above: Performed By: #### 2 524-7 #### JUANITO PERES (82636) [facility] ([facility]) [address] [place] [address] 97413 pH (U) 7.5 [pH] Normal 5.0, 5.5, 6.0, 6.5, 7.0, 7.5, 8.0 [facility] Comment on above: Performed By: #### 2 524-7 #### JUANITO PERES (20968) [facility] ([facility]) [address] [place] [address] 97403 Protein (U) [Mass/Vol] Negative Normal NEGAT ALAINA, 10 (TRACE), 20 (TRACE) [facility] Comment on above: Performed By: #### 2 524-7 #### JUANITO PERES ([id number]) [facility] ([facility]) [address] [place] [address] 29928 RBC (U) [#/Vol] Negative Normal NEGATIVE [facility] Comment on above: Performed By: #### 2 524-7 #### JUANITO PERES (44613) [facility] ([facility]) [address] [place] [address] 60046 Specific gravity (U) [Rel density] 1.006 Normal 1.005-1.035 [facility] Comment on above: Performed By: #### 2 524-7 #### JUANITO PERES (40627) [facility] ([facility]) [address] [place] [address] Urobilinogen (U) [Mass/Vol] Normal Normal Normal [facility] Comment on above: Performed By: #### 2 524-7 #### JUANITO PERES (33509) [facility] ([facility]) [address] [place] [address] Urinalysis microscopic panel Auto Ql (U)on 05-04-2024 Bacteria Auto (Urine sed) [#/Area] 4+ /HPF Abnormal NONE SEEN [facility] Comment on above: Performed By: #### 2 524-7 #### JUANITO PERES ([id number]) [facility] ([facility]) [address] [place] [address] Crystals.amorphous Computer assisted (U) [#/Area] 1+ /HPF Normal NONE, 1+, 2+ [facility] Comment on above: Performed By: #### 2 524-7 #### JUANITO PERES (98382) [facility] ([facility]) [address] [place] [address] Epithelial cells.squamous Auto (Urine sed) [#/Area] 1-9 (SPARSE) Normal Reference range not established. [facility] Comment on above: Performed By: #### 2 524-7 #### JUANITO PERES (74378) [facility] ([facility]) [address] [place] [address] Leukocyte clumps Auto (Urine sed) [#/Area] OCCASIONAL Normal Reference range not established. [facility] Comment on above: Performed By: #### 2 524-7 #### JUANITO PERES ([id number]) [facility] ([facility]) [address] [place] [address] RBC Auto (Urine sed) [#/Area] 1-2 Normal NONE, 1-2, 3-5 [facility] Comment on above: Performed By: #### 2 524-7 #### JUANITO SILVEIRAHRLI ([id number]) [facility] ([facility]) [address] [place] [address] WBC Auto (Urine sed) [#/Area] 11-20 Abnormal 1-5, NONE [facility] Comment on above: Performed By: #### 2 524-7 #### SOLOMON JA ([id number]) [facility] ([facility]) [facility] [place] [address] Basic metabolic 2000 panelon 04-25-2024 Anion gap [Moles/Vol] 12 mmol/L 10 - 2 0 mmol/L [facility] Calcium [Mass/Vol] 7.7 mg/dL Low 8.6 - 10. 3 mg/dL [facility] Chloride [Moles/Vol] 112 mmol/L High 98 - 10 7 mmol/L [facility] CO2 [Moles/Vol] 21 mmol/L 21 - 32 mmol/L [facility] Creatinine [Mass/Vol] 0.76 mg/dL 0.50 - 1.05 mg/dL [facility] GFR/1.73 sq M.predicted among non-blacks MDRD (S/P/Bld) [Vol rate/Area] 79 mL/min/{1.73_m2} - PINF [facility] Comment on above: Calculations of tiffani mated GFR are performed using the 2020 CKD-EPI Study Refit equation without the race variable for the IDMS-Traceable creatinine methods. https://jasn.asnjournals.org/content//ASN.2020 151168 Glucose [Mass/Vol] 128 mg/dL High 74 - 99 mg/dL [facility] Interpretation and review of laboratory results Abnormal [facility] Potassium [Moles/Vol] 3.9 mmol/L 3.5 - 5.3 mmol/L [facility] Sodium [Moles/Vol] 141 mmol/L 136 - 145 mmol/L [facility] Urea nitrogen [Mass/Vol] 11 mg/dL 6 - 23 mg/dL [facility] Anion gap [Moles/Vol] 12 mmol/L Normal 10-20 [facility] Comment on above: Performed By: #### 2 524-7 #### JUANITO PERES ([id number]) [facility] ([facility]) [facility] [place] [address] Calcium [Mass/Vol] 7.7 mg/dL Low 8.6-10.3 [facility] Comment on above: Performed By: #### 2 524-7 #### JUANITO PERES (13693) [facility] ([facility]) [address] [place] [address] 33410 Chloride [Moles/Vol] 112 mmol/L High 98-107 [facility] Comment on above: Performed By: #### 2 524-7 #### JUANITO PERES ([id number]) [facility] ([facility]) [address] [place] [address] 40229 CO2 [Moles/Vol] 21 mmol/L Normal 21-32 [facility] Comment on above: Performed By: #### 2 524-7 #### JUANITO PERES (23936) [facility] ([facility]) [address] [place] [address] 97539 Creatinine [Mass/Vol] 0.76 mg/dL Normal 0.50-1.05 [facility] Comment on above: Performed By: #### 2 524-7 #### JUANITO PERES ([id number]) [facility] ([facility]) [address] [place] [address] 98075 Glomerular filtration rate/1.73 sq M.predicted 79 mL/min/1.73m*2 Normal >60 [facility] Comment on above: Result Comment: Calc ulations of estimated GFR are performed using the 2020 CKD-EPI Study Refit equation without the race variable for the IDMS-Traceable creatinine methods. https://jasn.asnjournals.org/content/early//ASN.2020 091006 Performed By: #### 2 524-7 #### JUANITO PERES (95230) [facility] ([facility]) [address] [place] [address] 48560 Glucose [Mass/Vol] 128 mg/dL High 74-99 [facility] Comment on above: Performed By: #### 2 524-7 #### JUANITO PERES ([id number]) [facility] ([facility]) [address] [place] [address] Potassium [Moles/Vol] 3.9 mmol/L Normal 3.5-5.3 [facility] Comment on above: Performed By: #### 2 524-7 #### JUANITO PERES (24457) [facility] ([facility]) [address] [place] [address] Sodium [Moles/Vol] 141 mmol/L Normal 136-145 [facility] Comment on above: Performed By: #### 2 524-7 #### JUANITO PERES (96893) [facility] ([facility]) [address] [place] [address] Urea nitrogen [Mass/Vol] 11 mg/dL Normal 6-23 [facility] Comment on above: Performed By: #### 2 524-7 #### JUANITO PERES (84657) [facility] ([facility]) [address] [place] [address] 36838 CBC panel Auto (Bld)on 04-25 Erythrocyte distribution width (RBC) [Ratio] 13.2 % 11.5 - 14.5 % [facility] Hematocrit (Bld) [Volume fraction] 33.3 % Low 36.0 - 46.0 % [facility] Hemoglobin (Bld) [Mass/Vol] 10.3 g/dL Low 12.0 - 16.0 g/dL [facility] Interpretation and review of laboratory results Abnormal [facility] MCH (RBC) [Entitic mass] 31.1 pg 26.0 - 34.0 pg [facility] MCHC (RBC) [Mass/Vol] 30.9 g/dL Low 32.0 - 36.0 g/dL [facility] MCV (RBC) [Entitic vol] 101 fL High 80 - 100 fL [facility] Nucleated RBC/100 WBC (Bld) [Ratio] 0.0 % [facility] Platelets (Bld) [#/Vol] 210 10*3/uL [facility] RBC (Bld) [#/Vol] 3.31 10*6/uL Low [facility] WBC (Bld) [#/Vol] 7.9 10*3/uL [facility] Erythrocyte distribution width (RBC) [Ratio] 13.2 % Normal 11.5-14.5 [facility] Comment on above: Performed By: #### 2 524-7 #### JUANITO PERES (61214) [facility] ([facility]) [address] [place] [address] 86961 Hematocrit (Bld) [Volume fraction] 33.3 % Low 36.0-46.0 [facility] Comment on above: Performed By: #### 2 524-7 #### JUANITO PERES (08331) [facility] ([facility]) [address] [place] [address] 71526 Hemoglobin (Bld) [Mass/Vol] 10.3 g/dL Low 12.0-16.0 [facility] Comment on above: Performed By: #### 2 524-7 #### JUANITO PERES (93303) [facility] ([facility]) [address] [place] [address] 05816 MCH (RBC) [Entitic mass] 31.1 pg Normal 26.0-34.0 [facility] Comment on above: Performed By: #### 2 524-7 #### JUANITO PERES (25464) [facility] ([facility]) [address] [place] [address] 95939 MCHC (RBC) [Mass/Vol] 30.9 g/dL Low 32.0-36.0 [facility] Comment on above: Performed By: #### 2 524-7 #### JUANITO PERES (18791) [facility] ([facility]) [address] [place] [address] 55153 MCV (RBC) [Entitic vol] 101 fL High 80-100 [facility] Comment on above: Performed By: #### 2 524-7 #### JUANITO PERES (81687) [facility] ([facility]) [address] [place] [address] 00329 Nucleated RBC/100 WBC (Bld) [Ratio] 0.0 /100 WBCs Normal 0.0-0.0 [facility] Comment on above: Performed By: #### 2 524-7 #### JUANITO PERES (90953) [facility] ([facility]) [address] [place] [address] 51482 Platelets (Bld) [#/Vol] 210 x10*3/uL Normal 150-450 [facility] Comment on above: Performed By: #### 2 524-7 #### JUANITO PERES (66291) [facility] ([facility]) [address] [place] [address] 68183 RBC (Bld) [#/Vol] 3.31 x10*6/uL Low 4.00-5.20 [facility] Comment on above: Performed By: #### 2 524-7 #### JUANITO PERES ([id number]) [facility] ([facility]) [address] [place] [address] 57884 WBC (Bld) [#/Vol] 7.9 x10*3/uL Normal 4.4-11.3 [facility] Comment on above: Performed By: #### 2 524-7 #### JUANITO PERES (25045) [facility] ([facility]) [address] [place], [place] [phone] SARS coronavirus 2 RNAon SARS-CoV-2 (COVID-19) RNA ELGIN+probe Ql (Resp) Not detected Normal Not Detected [facility] Comment on above: Order Comment: Venip uncture immediately after or during the administration of Metamizole may lead to falsely low results. Testing should be performed immediately prior to Metamizole dosing. Performed By: #### 2 524-7 #### JUANITO PERES (84902) [facility] ([facility]) [address] [place], [place] [phone] SARS-CoV-2 (COVID-19) RNA NA A+probe Ql (Resp)on 04-25-2024 Interpretation and review of laboratory results Normal [facility] This assay has recei john FDA Emergency Use Authorization (EUA) and is only authorized for the duration of time that circumstances exist to justify the authorization of the emergency use of in vitro diagnostic tests for the detection of SARS-CoV-2 virus and/or diagnosis of COVID-19 infection under section 564(b)(1) of the Act, 21 U.S.C. 360bbb-3(b)(1). This assay is an in vitro diagnostic nucleic acid amplification test for the qualitative detection of SARS-CoV-2 from nasopharyngeal specimens and has been validated for use at [facility]. Negative results do not preclude COVID-19 infections and should not be used as the sole basis for diagnosis, treatment, or other management decisions. [facility] Sars-CoV-2 PCRon 04-25-2024 SARS-CoV-2 (COVID-19) RNA ELGIN+probe Ql (Resp) Not detected Not Detected [facility] ECG 12 leadOrdered By: Lorrie Montoya on 04-24-2024 Atrial Rate 104 BPM [facility] Work Phone: P [place] 80 degrees [facility] Work Phone: P Offset 212 ms [facility] Work Phone: P Onset 158 ms [facility] Work Phone: ID Interval 140 ms [facility] Work Phone: Q Onset 228 ms [facility] Work Phone: QRS Count 17 beats [facility] Work Phone: QRS Duration 76 ms [facility] Work Phone: QT Interval 260 ms [facility] Work Phone: QTC Calculation(Bazett) 341 ms [facility] Work Phone: QTC Fredericia 312 ms [facility] Work Phone: R [place] 5 degrees [facility] Work Phone: T [place] 48 degrees [facility] Work Phone: T Offset 358 ms [facility] Work Phone: Ventricular Rate 104 BPM [facility] Work Phone: [facility] Work Phone: ECG 12 leadon 04-24-2024 Sinus tachycardia Possible Anterior infarct , age undetermined Abnormal ECG When compared with ECG of 18-APR-2024 01:59, (unconfirmed) Vent. rate has increased BY 34 BPM Borderline criteria for Anterior infarct are now Present Nonspecific T wave abnormality now evident in Inferior leads Nonspecific T wave abnormality now evident in Lateral leads QT has shortened See ED provider note for full interpretation and clinical correlation Confirmed by Meri Montoya ([id number]) on 04/24/2024 11:05:22 AM Jeannie Helm APRN-STORM CHASER - 04/24/2024 Sinus tachycardia Possible Anterior infarct , age undetermined Abnormal ECG When compared with ECG of 18-APR-2024 01:59, (unconfirmed) Vent. rate has increased BY 34 BPM Borderline criteria for Anterior infarct are now Present Nonspecific T wave abnormality now evident in Inferior leads Nonspecific T wave abnormality now evident in Lateral leads QT has shortened See ED provider note for full interpretation and clinical correlation Confirmed by Meri Montoya ([id number]) on 04/24/2024 11:05:22 AM [facility] Work Phone: EGDon 04-24-2024 Esophagogastroduodenosc opy Table formatting from the original result was not included. Impression PEG tube placed in the body of the stomach Single ulcer in the 1st part of the duodenum with clean base (Lino III) Findings A PEG tube measuring 20 Fr was placed in the body of the stomach using a deformable internal bolster via the pull technique after the site was identified via transillumination, visualized indentation and needle passed through abdominal wall; distance from external bolster to external end of tube: 3 cm; scope reinserted and tube rotated freely to confirm placement Single 2 mm x 3 mm superficial, linear, benign-appearing ulcer in the 1st part of the duodenum with clean base (Lino III) Recommendation Follow up with primary eyewear consultant Indication Severe dehydration, Intellectual functioning disability, Abnormal intentional weight loss, Altered mental status, unspecified altered mental status type Staff Staff Role No Staff Documented Medications See Anesthesia Record. Preprocedure A history and physical has been performed, and patient medication allergies have been reviewed. The patient's tolerance of previous anesthesia has been reviewed. The risks and benefits of the procedure and the sedation options and risks were discussed with the patient and care team . All questions were answered and informed consent obtained. Details of the Procedure The patient underwent monitored anesthesia care, which was administered by an anesthesia professional. The patient's blood pressure, ECG, ETCO2, heart rate, level of consciousness, oxygen and respirations were monitored throughout the procedure. The scope was introduced through the mouth and advanced to the second part of the duodenum. Retroflexion was performed in the cardia. Prior to the procedure, the patient's H. Pylori status was unknown. The patient experienced no blood loss. The procedure was not difficult. The patient tolerated the procedure well. There were no apparent adverse events. Events Procedure Events Event Event Time ENDO SCOPE IN TIME 04/22/2024 8:51 AM ENDO SCOPE OUT TIME 04/22/2024 8:58 AM Specimens No specimens collected Procedure Location [facility] [place] [address] [place] [id number] Referring Provider Clara Jones DO Procedure Provider Clara Jones DO [facility] EGD Study observation Narrat kayceegionkechi 04-24-2024 Table formatting fro m the original result was not included. Impression PEG tube placed in the body of the stomach Single ulcer in the 1st part of the duodenum with clean base (Lino III) Findings A PEG tube measuring 20 Fr was placed in the body of the stomach using a deformable internal bolster via the pull technique after the site was identified via transillumination, visualized indentation and needle passed through abdominal wall; distance from external bolster to external end of tube: 3 cm; scope reinserted and tube rotated freely to confirm placement Single 2 mm x 3 mm superficial, linear, benign-appearing ulcer in the 1st part of the duodenum with clean base (Lino III) Recommendation Follow up with primary eyewear consultant Indication Severe dehydration, Intellectual functioning disability, Abnormal intentional weight loss, Altered mental status, unspecified altered mental status type Staff Staff Role No Staff Documented Medications See Anesthesia Record. Preprocedure A history and physical has been performed, and patient medication allergies have been reviewed. The patient's tolerance of previous anesthesia has been reviewed. The risks and benefits of the procedure and the sedation options and risks were discussed with the patient and care team . All questions were answered and informed consent obtained. Details of the Procedure The patient underwent monitored anesthesia care, which was administered by an anesthesia professional. The patient's blood pressure, ECG, ETCO2, heart rate, level of consciousness, oxygen and respirations were monitored throughout the procedure. The scope was introduced through the mouth and advanced to the second part of the duodenum. Retroflexion was performed in the cardia. Prior to the procedure, the patient's H. Pylori status was unknown. The patient experienced no blood loss. The procedure was not difficult. The patient tolerated the procedure well. There were no apparent adverse events. Events Procedure Events Event Event Time ENDO SCOPE IN TIME 04/22/2024 8:51 AM ENDO SCOPE OUT TIME 04/22/2024 8:58 AM Specimens No specimens collected Procedure Location [facility] [place] [address] [place] [id number] Referring Provider Clara Jones DO Procedure Provider Clara Jones DO [facility] Work Phone: [facility] Work Phone: Basic metabolic 2000 panelon 04-23-2024 Anion gap [Moles/Vol] 10 mmol/L 10 - 2 0 mmol/L [facility] Calcium [Mass/Vol] 7.4 mg/dL Low 8.6 - 10. 3 mg/dL [facility] Chloride [Moles/Vol] 114 mmol/L High 98 - 10 7 mmol/L [facility] CO2 [Moles/Vol] 22 mmol/L 21 - 32 mmol/L [facility] Creatinine [Mass/Vol] 1.00 mg/dL 0.50 - 1.05 mg/dL [facility] Comment on above: Reviewed previous re sults GFR/1.73 sq M.predicted among non-blacks MDRD (S/P/Bld) [Vol rate/Area] 57 mL/min/{1.73_m2} Low - PINF [facility] Comment on above: Calculations of tiffani mated GFR are performed using the 2020 CKD-EPI Study Refit equation without the race variable for the IDMS-Traceable creatinine methods. https://jasn.asnjournals.org/content/early/ASN.2020 353465 Glucose [Mass/Vol] 96 mg/dL 74 - 99 mg/dL [facility] Interpretation and review of laboratory results Abnormal [facility] Potassium [Moles/Vol] 3.8 mmol/L 3.5 - 5.3 mmol/L [facility] Sodium [Moles/Vol] 142 mmol/L 136 - 145 mmol/L [facility] Urea nitrogen [Mass/Vol] 20 mg/dL 6 - 23 mg/dL [facility] Anion gap [Moles/Vol] 10 mmol/L Normal 10-20 [facility] Comment on above: Performed By: #### 2 524-7 #### JUANITO PERES ([id number]) [facility] ([facility]) [address] [place] [address] Calcium [Mass/Vol] 7.4 mg/dL Low 8.6-10.3 [facility] Comment on above: Performed By: #### 2 524-7 #### JUANITO PERES ([id number]) [facility] ([facility]) [address] [place] [address] Chloride [Moles/Vol] 114 mmol/L High 98-107 [facility] Comment on above: Performed By: #### 2 524-7 #### JUANITO PERES ([id number]) [facility] ([facility]) [facility] [place] [address] CO2 [Moles/Vol] 22 mmol/L Normal 21-32 [facility] Comment on above: Performed By: #### 2 524-7 #### JUANITO PERES ([id number]) [facility] ([facility]) [address] [place] [address] Creatinine [Mass/Vol] 1.00 mg/dL Normal 0.50-1.05 [facility] Comment on above: Result Comment: Revi kathrined previous results Performed By: #### 2 524-7 #### JUANITO PERES ([id number]) [facility] ([facility]) [facility] [place] [address] Glomerular filtration rate/1.73 sq M.predicted 57 mL/min/1.73m*2 Low >60 [facility] Comment on above: Result Comment: Calc ulations of estimated GFR are performed using the 2020 CKD-EPI Study Refit equation without the race variable for the IDMS-Traceable creatinine methods. https://jasn.asnjournals.org/content/early//ASN.2020 431785 Performed By: #### 2 524-7 #### JUANITO PERES ([id number]) [facility] ([facility]) [facility] [place] [address] Glucose [Mass/Vol] 96 mg/dL Normal 74-99 [facility] Comment on above: Performed By: #### 2 524-7 #### JUANITO PERES ([id number]) [facility] ([facility]) [facility] [place] [address] Potassium [Moles/Vol] 3.8 mmol/L Normal 3.5-5.3 [facility] Comment on above: Performed By: #### 2 524-7 #### JUANITO PERES ([id number]) [facility] ([facility]) [facility] [place] [address] Sodium [Moles/Vol] 142 mmol/L Normal 136-145 [facility] Comment on above: Performed By: #### 2 524-7 #### UJANITO PERES ([id number]) [facility] ([facility]) [address] [place] [address] Urea nitrogen [Mass/Vol] 20 mg/dL Normal 6-23 [facility] Comment on above: Performed By: #### 2 524-7 #### JUANITO PERES ([id number]) [facility] ([facility]) [address] [place] [address] CBC panel Auto (Bld)on 04-23 Erythrocyte distribution width (RBC) [Ratio] 13.1 % 11.5 - 14.5 % [facility] Hematocrit (Bld) [Volume fraction] 28.4 % Low 36.0 - 46.0 % [facility] Hemoglobin (Bld) [Mass/Vol] 9.0 g/dL Low 12.0 - 16.0 g/dL [facility] Interpretation and review of laboratory results Abnormal [facility] MCH (RBC) [Entitic mass] 31.5 pg 26.0 - 34.0 pg [facility] MCHC (RBC) [Mass/Vol] 31.7 g/dL Low 32.0 - 36.0 g/dL [facility] MCV (RBC) [Entitic vol] 99 fL 80 - 100 fL [facility] Nucleated RBC/100 WBC (Bld) [Ratio] 0.0 % [facility] Platelets (Bld) [#/Vol] 216 10*3/uL [facility] RBC (Bld) [#/Vol] 2.86 10*6/uL Low [facility] WBC (Bld) [#/Vol] 8.4 10*3/uL [facility] Erythrocyte distribution width (RBC) [Ratio] 13.1 % Normal 11.5-14.5 [facility] Comment on above: Performed By: #### 2 524-7 #### JUANITO PERES ([id number]) [facility] ([facility]) [address] [place] [address] Hematocrit (Bld) [Volume fraction] 28.4 % Low 36.0-46.0 [facility] Comment on above: Performed By: #### 2 524-7 #### JUANITO PERES ([id number]) [facility] ([facility]) [address] [place] [address] Hemoglobin (Bld) [Mass/Vol] 9.0 g/dL Low 12.0-16.0 [facility] Comment on above: Performed By: #### 2 524-7 #### JUANITO PERES ([id number]) [facility] ([facility]) [address] [place] [address]4625 MCH (RBC) [Entitic mass] 31.5 pg Normal 26.0-34.0 [facility] Comment on above: Performed By: #### 2 524-7 #### JUANITO PERES ([id number]) [facility] ([facility]) [address] [place] [address] 25845 MCHC (RBC) [Mass/Vol] 31.7 g/dL Low 32.0-36.0 [facility] Comment on above: Performed By: #### 2 524-7 #### JUANITO PERES ([id number]) [facility] ([facility]) [address] [place] [address] 39189 MCV (RBC) [Entitic vol] 99 fL Normal 80-100 [facility] Comment on above: Performed By: #### 2 524-7 #### JUANITO PERES ([id number]) [facility] ([facility]) [address] [place] [address] 56[address] Nucleated RBC/100 WBC (Bld) [Ratio] 0.0 /100 WBCs Normal 0.0-0.0 [facility] Comment on above: Performed By: #### 2 524-7 #### JUANITO PERES ([id number]) [facility] ([facility]) [address] [place] [address] 37998 Platelets (Bld) [#/Vol] 216 x10*3/uL Normal 150-450 [facility] Comment on above: Performed By: #### 2 524-7 #### JUANITO PERES ([id number]) [facility] ([facility]) [address] [place] [address] RBC (Bld) [#/Vol] 2.86 x10*6/uL Low 4.00-5.20 [facility] Comment on above: Performed By: #### 2 524-7 #### JUANITO PERES ([id number]) [facility] ([facility]) [address] [place] [address] WBC (Bld) [#/Vol] 8.4 x10*3/uL Normal 4.4-11.3 [facility] Comment on above: Performed By: #### 2 524-7 #### JUANITO PERES ([id number]) [facility] ([facility]) [address] [place] [address] SST TOPon 04-23-2024 Extra Tube Hold for add-ons. [facility] Comment on above: Auto resulted. [facility] Bacteria identified Cx Nom ( Bld)on 04-22-2024 Interpretation and review of laboratory results Normal [facility] Basic metabolic 2000 panelon 04-22-2024 Anion gap [Moles/Vol] 9 mmol/L Low 10 - 2 0 mmol/L [facility] Calcium [Mass/Vol] 7.4 mg/dL Low 8.6 - 10. 3 mg/dL [facility] Comment on above: Confirmed by repeat analysis Chloride [Moles/Vol] 114 mmol/L High 98 - 10 7 mmol/L [facility] CO2 [Moles/Vol] 21 mmol/L 21 - 32 mmol/L [facility] Creatinine [Mass/Vol] 1.43 mg/dL High 0.50 - 1.05 mg/dL [facility] GFR/1.73 sq M.predicted among non-blacks MDRD (S/P/Bld) [Vol rate/Area] 37 mL/min/{1.73_m2} Low - PINF [facility] Comment on above: Calculations of tiffani mated GFR are performed using the 2020 CKD-EPI Study Refit equation without the race variable for the IDMS-Traceable creatinine methods. https://jasn.asnjournals.org/content//ASN.2020 316158 Glucose [Mass/Vol] 128 mg/dL High 74 - 99 mg/dL [facility] Interpretation and review of laboratory results Abnormal [facility] Potassium [Moles/Vol] 4.1 mmol/L 3.5 - 5.3 mmol/L [facility] Sodium [Moles/Vol] 140 mmol/L 136 - 145 mmol/L [facility] Urea nitrogen [Mass/Vol] 34 mg/dL High 6 - 23 mg/dL [facility] Anion gap [Moles/Vol] 9 mmol/L Low 10-20 [facility] Comment on above: Performed By: #### 2 524-7 #### JUANITO PERES ([id number]) [facility] ([facility]) [facility] [place] [address] Calcium [Mass/Vol] 7.4 mg/dL Low 8.6-10.3 [facility] Comment on above: Result Comment: Conf irmed by repeat analysis Performed By: #### 2 524-7 #### JUANITO PERES ([id number]) [facility] ([facility]) [address] [place] [address] Chloride [Moles/Vol] 114 mmol/L High 98-107 [facility] Comment on above: Performed By: #### 2 524-7 #### JUANITO PERES (86320) [facility] ([facility]) [address] [place] [address] CO2 [Moles/Vol] 21 mmol/L Normal 21-32 [facility] Comment on above: Performed By: #### 2 524-7 #### JUANITO PERES (19035) [facility] ([facility]) [address] [place] [address] Creatinine [Mass/Vol] 1.43 mg/dL High 0.50-1.05 [facility] Comment on above: Performed By: #### 2 524-7 #### JUANITO PERES (21997) [facility] ([facility]) [facility] [place] [address] Glomerular filtration rate/1.73 sq M.predicted 37 mL/min/1.73m*2 Low >60 [facility] Comment on above: Result Comment: Calc ulations of estimated GFR are performed using the 2020 CKD-EPI Study Refit equation without the race variable for the IDMS-Traceable creatinine methods. https://jasn.asnjournals.org/content/early/ASN.2020 086320 Performed By: #### 2 524-7 #### JUANITO PERES (49019) [facility] ([facility]) [address] [place] [address] Glucose [Mass/Vol] 128 mg/dL High 74-99 [facility] Comment on above: Performed By: #### 2 524-7 #### JUANITO PERES (87640) [facility] ([facility]) [address] [place] [address] Potassium [Moles/Vol] 4.1 mmol/L Normal 3.5-5.3 [facility] Comment on above: Performed By: #### 2 524-7 #### JUANITO PERES (45442) [facility] ([facility]) [address] [place] [address] Sodium [Moles/Vol] 140 mmol/L Normal 136-145 [facility] Comment on above: Performed By: #### 2 524-7 #### JUANITO PERES (14606) [facility] ([facility]) [facility] [place] [address] Urea nitrogen [Mass/Vol] 34 mg/dL High 6-23 [facility] Comment on above: Performed By: #### 2 524-7 #### JUANITO PERES (66672) [facility] ([facility]) [address] [place] [address] Blood Cultureon 04-22-2024 Bacteria identified Cx Nom (Bld) No growth at 4 days - FINAL REPORT [facility] CBC panel Auto (Bld)on 04-22 Erythrocyte distribution width (RBC) [Ratio] 13.2 % 11.5 - 14.5 % [facility] Hematocrit (Bld) [Volume fraction] 28.6 % Low 36.0 - 46.0 % [facility] Hemoglobin (Bld) [Mass/Vol] 8.7 g/dL Low 12.0 - 16.0 g/dL [facility] Interpretation and review of laboratory results Abnormal [facility] MCH (RBC) [Entitic mass] 31.2 pg 26.0 - 34.0 pg [facility] MCHC (RBC) [Mass/Vol] 30.4 g/dL Low 32.0 - 36.0 g/dL [facility] MCV (RBC) [Entitic vol] 103 fL High 80 - 100 fL [facility] Nucleated RBC/100 WBC (Bld) [Ratio] 0.0 % [facility] Platelets (Bld) [#/Vol] 207 10*3/uL [facility] RBC (Bld) [#/Vol] 2.79 10*6/uL Low [facility] WBC (Bld) [#/Vol] 8.9 10*3/uL [facility] Erythrocyte distribution width (RBC) [Ratio] 13.2 % Normal 11.5-14.5 [facility] Comment on above: Performed By: #### 5 8410-2 ####JUANITO PERES (49320)[facility] ([facility])[address] [place] [address] Hematocrit (Bld) [Volume fraction] 28.6 % Low 36.0-46.0 [facility] Comment on above: Performed By: #### 5 8410-2 ####JUANITO PERES (50891)[facility] ([facility])[address] [place] [address] 98054 Hemoglobin (Bld) [Mass/Vol] 8.7 g/dL Low 12.0-16.0 [facility] Comment on above: Performed By: #### 5 8410-2 ####JUANITO PERES (48911)[facility] ([facility])[address] [place] [address]258 MCH (RBC) [Entitic mass] 31.2 pg Normal 26.0-34.0 [facility] Comment on above: Performed By: #### 5 8410-2 ####JUANITO PERES ([id number])[facility] ([facility])[address] [place] [address] 90184 MCHC (RBC) [Mass/Vol] 30.4 g/dL Low 32.0-36.0 [facility] Comment on above: Performed By: #### 5 8410-2 ####JUANITO PERES ([id number])[facility] ([facility])[address] [place] [address] 64316 MCV (RBC) [Entitic vol] 103 fL High 80-100 [facility] Comment on above: Performed By: #### 5 8410-2 ####JUANITO PERES (45435)[facility] ([facility])[address] [place] [address] Nucleated RBC/100 WBC (Bld) [Ratio] 0.0 /100 WBCs Normal 0.0-0.0 [facility] Comment on above: Performed By: #### 5 8410-2 ####JUANITO PERES (24142)[facility] ([facility])[address] [place] [address] 47388 Platelets (Bld) [#/Vol] 207 x10*3/uL Normal 150-450 [facility] Comment on above: Performed By: #### 5 8410-2 ####JUANITO PERES ([id number])[facility] ([facility])[address] [place] [address] 26482 RBC (Bld) [#/Vol] 2.79 x10*6/uL Low 4.00-5.20 [facility] Comment on above: Performed By: #### 5 8410-2 ####JUANITO PERES ([id number])[facility] ([facility])[address] [place] [address] 85891 WBC (Bld) [#/Vol] 8.9 x10*3/uL Normal 4.4-11.3 [facility] Comment on above: Performed By: #### 5 8410-2 ####JUANITO PERES ([id number])[facility] ([facility])[address] [place] [address] EGD Study observation Narrat iveon 04-22-2024 Radiology Study observation (narrative) [facility] Work Phone: Glucose Test strip manual (B ld) [Mass/Vol]on 04-22-2024 Glucose [Mass/Vol] 94 mg/dL 74 - 99 mg/dL [facility] Interpretation and review of laboratory results Normal [facility] Glucose [Mass/Vol] 94 mg/dL Normal 74-99 [facility] Comment on above: Performed By: #### 2 524-7 #### SOLOMON JA ([id number]) [facility] ([facility]) [address] [place], [place] [id number] 1,25-dihydroxyvitamin D3 [Ma ss/Vol]on 04-21-2024 1,25-dihydroxyvitamin D [Mass/Vol] 26.0 pg/mL 19.9 - 79.3 pg/mL [facility] Comment on above: INTERPRETIVE INFORMA TION: Vitamin D, 1,25-Dihydroxy This test is primarily indicated during patient evaluation for hypercalcemia and renal failure. A normal result does not rule out Vitamin D deficiency. The recommended test for diagnosing Vitamin D deficiency is Vitamin D 25-hydroxy. Performed By: [facility] [address] [place] [address] Water Pump Installer: Gabriele Sanderson MD, PhD CLIA Number: [id number] [facility] Basic metabolic 2000 panelon 04-21-2024 Anion gap [Moles/Vol] 8 mmol/L Low 10 - 2 0 mmol/L [facility] Calcium [Mass/Vol] 8.6 mg/dL 8.6 - 10. 3 mg/dL [facility] Comment on above: Confirmed by repeat analysis Chloride [Moles/Vol] 112 mmol/L High 98 - 10 7 mmol/L [facility] CO2 [Moles/Vol] 27 mmol/L 21 - 32 mmol/L [facility] Creatinine [Mass/Vol] 1.16 mg/dL High 0.50 - 1.05 mg/dL [facility] GFR/1.73 sq M.predicted among non-blacks MDRD (S/P/Bld) [Vol rate/Area] 48 mL/min/{1.73_m2} Low - PINF [facility] Comment on above: Calculations of tiffani mated GFR are performed using the 2020 CKD-EPI Study Refit equation without the race variable for the IDMS-Traceable creatinine methods. https://jasn.asnjournals.org/content//ASN.2020 475070 Glucose [Mass/Vol] 71 mg/dL Low 74 - 99 mg/dL [facility] Interpretation and review of laboratory results Abnormal [facility] Potassium [Moles/Vol] 3.4 mmol/L Low 3.5 - 5.3 mmol/L [facility] Sodium [Moles/Vol] 144 mmol/L 136 - 145 mmol/L [facility] Urea nitrogen [Mass/Vol] 34 mg/dL High 6 - 23 mg/dL [facility] Anion gap [Moles/Vol] 8 mmol/L Low 10-20 [facility] Comment on above: Performed By: #### 2 4321-2 ####JUANITO PERES ([id number])[facility] ([facility])[address] [place] [address]783 Calcium [Mass/Vol] 8.6 mg/dL Normal 8.6-10.3 [facility] Comment on above: Result Comment: Conf irmed by repeat analysis Performed By: #### 2 4321-2 ####JUANITO PERES ([id number])[facility] ([facility])[address] [place] [address]447 Chloride [Moles/Vol] 112 mmol/L High 98-107 [facility] Comment on above: Performed By: #### 2 4321-2 ####JUANITO PERES ([id number])[facility] ([facility])[address] [place] [address] 35482 CO2 [Moles/Vol] 27 mmol/L Normal 21-32 [facility] Comment on above: Performed By: #### 2 4321-2 ####JUANITO PERES ([id number])[facility] ([facility] [place] [address] Creatinine [Mass/Vol] 1.16 mg/dL High 0.50-1.05 [facility] Comment on above: Performed By: #### 2 4321-2 ####JUANITO PERES ([id number])[facility] ([facility])[address] [place] [address] 79249 Glomerular filtration rate/1.73 sq M.predicted 48 mL/min/1.73m*2 Low >60 [facility] Comment on above: Result Comment: Calc ulations of estimated GFR are performed using the 2020 CKD-EPI Study Refit equation without the race variable for the IDMS-Traceable creatinine methods. https://jasn.asnjournals.org/content/early//ASN.2020 508833 Performed By: #### 2 1-2 ####JUANITO PERES ([id number])[facility] ([facility])[address] [place] [address] 50780 Glucose [Mass/Vol] 71 mg/dL Low 74-99 [facility] Comment on above: Performed By: #### 2 1-2 ####JUANITO PERES ([id number])[facility] ([facility])[address] [place] [address] 05662 Potassium [Moles/Vol] 3.4 mmol/L Low 3.5-5.3 [facility] Comment on above: Performed By: #### 2 4321-2 ####JUANITO PERES ([id number])[facility] ([facility])[address] [place] [address] 72705 Sodium [Moles/Vol] 144 mmol/L Normal 136-145 [facility] Comment on above: Performed By: #### 2 4321-2 ####JUANITO PERES ([id number])[facility] ([facility])[address] [place] [address] 22036 Urea nitrogen [Mass/Vol] 34 mg/dL High 6-23 [facility] Comment on above: Performed By: #### 2 4321-2 ####JUANITO PERES ([id number])[facility] ([facility])[address] [place] [address] 26778 CBC panel Auto (Bld)on 04-21 Erythrocyte distribution width (RBC) [Ratio] 12.4 % 11.5 - 14.5 % [facility] Hematocrit (Bld) [Volume fraction] 31.8 % Low 36.0 - 46.0 % [facility] Hemoglobin (Bld) [Mass/Vol] 10.2 g/dL Low 12.0 - 16.0 g/dL [facility] Interpretation and review of laboratory results Abnormal [facility] MCH (RBC) [Entitic mass] 32.3 pg 26.0 - 34.0 pg [facility] MCHC (RBC) [Mass/Vol] 32.1 g/dL 32.0 - 36.0 g/dL [facility] MCV (RBC) [Entitic vol] 101 fL High 80 - 100 fL [facility] Nucleated RBC/100 WBC (Bld) [Ratio] 0.0 % [facility] Platelets (Bld) [#/Vol] 219 10*3/uL [facility] RBC (Bld) [#/Vol] 3.16 10*6/uL Low [facility] WBC (Bld) [#/Vol] 9.2 10*3/uL [facility] Erythrocyte distribution width (RBC) [Ratio] 12.4 % Normal 11.5-14.5 [facility] Comment on above: Performed By: #### 5 8410-2 ####JUANITO PERES ([id number])[facility] ([facility])[address] [place] [address] 21756 Hematocrit (Bld) [Volume fraction] 31.8 % Low 36.0-46.0 [facility] Comment on above: Performed By: #### 5 8410-2 ####JUANITO PERES ([id number])[facility] ([facility])[address] [place] [address] 69060 Hemoglobin (Bld) [Mass/Vol] 10.2 g/dL Low 12.0-16.0 [facility] Comment on above: Performed By: #### 5 8410-2 ####JUANITO PERES ([id number])[facility] ([facility])[address] [place] [address] MCH (RBC) [Entitic mass] 32.3 pg Normal 26.0-34.0 [facility] Comment on above: Performed By: #### 5 8410-2 ####JUANITO PERES ([id number])[facility] ([facility])[address] [place] [address] MCHC (RBC) [Mass/Vol] 32.1 g/dL Normal 32.0-36.0 [facility] Comment on above: Performed By: #### 5 8410-2 ####JUANITO PERES ([id number])[facility] ([facility])[address] [place] [address] MCV (RBC) [Entitic vol] 101 fL High 80-100 [facility] Comment on above: Performed By: #### 5 8410-2 ####JUANITO PERES ([id number])[facility] ([facility])[address] [place], [place] [address] Nucleated RBC/100 WBC (Bld) [Ratio] 0.0 /100 WBCs Normal 0.0-0.0 [facility] Comment on above: Performed By: #### 5 8410-2 ####JUANITO PERES ([id number])[facility] ([facility])[address] [place], [place] [address] Platelets (Bld) [#/Vol] 219 x10*3/uL Normal 150-450 [facility] Comment on above: Performed By: #### 5 8410-2 ####JUANITO PREES ([id number])[facility] ([facility])[address] [place] [address] 98670 RBC (Bld) [#/Vol] 3.16 x10*6/uL Low 4.00-5.20 [facility] Comment on above: Performed By: #### 5 8410-2 ####JUANITO PERES ([id number])[facility] ([facility])[address] [place] [address] WBC (Bld) [#/Vol] 9.2 x10*3/uL Normal 4.4-11.3 [facility] Comment on above: Performed By: #### 5 8410-2 ####JUANITO PERES ([id number])[facility] ([facility])[address] [place] [address] Glucose Test strip manual (B ld) [Mass/Vol]on 04-21-2024 Glucose [Mass/Vol] 154 mg/dL High 74 - 99 mg/dL [facility] Interpretation and review of laboratory results Abnormal [facility] Glucose [Mass/Vol] 154 mg/dL High 74-99 [facility] Comment on above: Performed By: #### 2 341-6 ####JUANITO PERES ([id number])[facility] ([facility])[address] [place] [address] SST TOPon 04-21-2024 Extra Tube Hold for add-ons. [facility] Comment on above: Auto resulted. [facility] CBC panel Auto (Bld)on 04-20 Erythrocyte distribution width (RBC) [Ratio] 12.7 % 11.5 - 14.5 % [facility] Hematocrit (Bld) [Volume fraction] 31.1 % Low 36.0 - 46.0 % [facility] Hemoglobin (Bld) [Mass/Vol] 9.4 g/dL Low 12.0 - 16.0 g/dL [facility] Interpretation and review of laboratory results Abnormal [facility] MCH (RBC) [Entitic mass] 31.1 pg 26.0 - 34.0 pg [facility] MCHC (RBC) [Mass/Vol] 30.2 g/dL Low 32.0 - 36.0 g/dL [facility] MCV (RBC) [Entitic vol] 103 fL High 80 - 100 fL [facility] Nucleated RBC/100 WBC (Bld) [Ratio] 0.0 % [facility] Platelets (Bld) [#/Vol] 216 10*3/uL [facility] RBC (Bld) [#/Vol] 3.02 10*6/uL Low [facility] WBC (Bld) [#/Vol] 11.3 10*3/uL [facility] Erythrocyte distribution width (RBC) [Ratio] 12.7 % Normal 11.5-14.5 [facility] Comment on above: Performed By: #### 5 8410-2 ####JUANITO PERES ([id number])[facility] ([facility])[address] [place] [address] 06031 Hematocrit (Bld) [Volume fraction] 31.1 % Low 36.0-46.0 [facility] Comment on above: Performed By: #### 5 8410-2 ####JUANITO PERES ([id number])[facility] ([facility])[address] [place] [address] 59949 Hemoglobin (Bld) [Mass/Vol] 9.4 g/dL Low 12.0-16.0 [facility] Comment on above: Performed By: #### 5 8410-2 ####JUANITO PERES ([id number])[facility] ([facility])[address] [place] [address] 76932 MCH (RBC) [Entitic mass] 31.1 pg Normal 26.0-34.0 [facility] Comment on above: Performed By: #### 5 8410-2 ####JUANITO PERES ([id number])[facility] ([facility])[address] [place] [address] 35561 MCHC (RBC) [Mass/Vol] 30.2 g/dL Low 32.0-36.0 [facility] Comment on above: Performed By: #### 5 8410-2 ####JUANITO PERES ([id number])[facility] ([facility])[address] [place] [address] 64627 MCV (RBC) [Entitic vol] 103 fL High 80-100 [facility] Comment on above: Performed By: #### 5 8410-2 ####JUANITO PERES ([id number])[facility] ([facility])[address] [place] [address] 43361 Nucleated RBC/100 WBC (Bld) [Ratio] 0.0 /100 WBCs Normal 0.0-0.0 [facility] Comment on above: Performed By: #### 5 8410-2 ####JUANITO PERES ([id number])[facility] ([facility])[address] [place] [address] 30048 Platelets (Bld) [#/Vol] 216 x10*3/uL Normal 150-450 [facility] Comment on above: Performed By: #### 5 8410-2 ####JUANITO PERES ([id number])[facility] ([facility])[address] [place] [address] 32778 RBC (Bld) [#/Vol] 3.02 x10*6/uL Low 4.00-5.20 [facility] Comment on above: Performed By: #### 5 8410-2 ####JUANITO PERES ([id number])[facility] ([facility])[address] [place] [address] 86148 WBC (Bld) [#/Vol] 11.3 x10*3/uL Normal 4.4-11.3 [facility] Comment on above: Performed By: #### 5 8410-2 ####JUANITO PERES ([id number])[facility] ([facility])[address] [place] [address] 49029 Comprehensive metabolic 2000 panelon 04-20-2024 Albumin BCP dye [Mass/Vol] 3.1 g/dL Low 3.4 - 5.0 g/dL [facility] ALP [Catalytic activity/Vol] 52 U/L 33 - 136 U/L [facility] ALT With P-5'-P [Catalytic activity/Vol] 9 U/L 7 - 45 U/L [facility] Comment on above: Patients treated wit h Sulfasalazine may generate falsely decreased results for ALT. Anion gap [Moles/Vol] 10 mmol/L 10 - 2 0 mmol/L [facility] AST With P-5'-P [Catalytic activity/Vol] 14 U/L 9 - 39 U/L [facility] Bilirubin [Mass/Vol] 0.3 mg/dL 0.0 - 1 .2 mg/dL [facility] Calcium [Mass/Vol] 9.9 mg/dL 8.6 - 10. 3 mg/dL [facility] Comment on above: Confirmed by repeat analysis Chloride [Moles/Vol] 107 mmol/L 98 - 10 7 mmol/L [facility] CO2 [Moles/Vol] 28 mmol/L 21 - 32 mmol/L [facility] Creatinine [Mass/Vol] 1.38 mg/dL High 0.50 - 1.05 mg/dL [facility] Comment on above: Confirmed by repeat analysis GFR/1.73 sq M.predicted among non-blacks MDRD (S/P/Bld) [Vol rate/Area] 39 mL/min/{1.73_m2} Low - PINF [facility] Comment on above: Calculations of tiffani mated GFR are performed using the 2020 CKD-EPI Study Refit equation without the race variable for the IDMS-Traceable creatinine methods. https://jasn.asnjournals.org/content/early/ASN.2020 941172 Glucose [Mass/Vol] 138 mg/dL High 74 - 99 mg/dL [facility] Interpretation and review of laboratory results Abnormal [facility] Potassium [Moles/Vol] 3.1 mmol/L Low 3.5 - 5.3 mmol/L [facility] Protein [Mass/Vol] 5.4 g/dL Low 6.4 - 8.2 g/dL [facility] Sodium [Moles/Vol] 142 mmol/L 136 - 145 mmol/L [facility] Comment on above: Confirmed by repeat analysis Urea nitrogen [Mass/Vol] 58 mg/dL High 6 - 23 mg/dL [facility] Albumin BCP dye [Mass/Vol] 3.1 g/dL Low 3.4-5.0 [facility] Comment on above: Performed By: #### 2 4323-8 ####SOLOMON JA ([id number])[facility] ([facility])[address] [place] [address] 00537 ALP [Catalytic activity/Vol] 52 U/L Normal 33-136 [facility] Comment on above: Performed By: #### 2 4323-8 ####JUANITO PERES ([id number])[facility] ([facility] [place] [address] ALT With P-5'-P [Catalytic activity/Vol] 9 U/L Normal 7-45 [facility] Comment on above: Result Comment: Stephanie ents treated with Sulfasalazine may generate falsely decreased results for ALT. Performed By: #### 2 432-8 ####JUANITO PERES ([id number])[facility] ([facility])[address] [place], [place] [address] Anion gap [Moles/Vol] 10 mmol/L Normal 10-20 [facility] Comment on above: Performed By: #### 2 432-8 ####JUANITO PERES ([id number])[facility] ([facility])[address] [place] [address] 64833 AST With P-5'-P [Catalytic activity/Vol] 14 U/L Normal 9-39 [facility] Comment on above: Performed By: #### 2 432-8 ####JUANITO PERES ([id number])[facility] ([facility])[address] [place] [address] 26966 Bilirubin [Mass/Vol] 0.3 mg/dL Normal 0.0-1.2 [facility] Comment on above: Performed By: #### 2 432-8 ####JUANITO PERES ([id number])[facility] ([facility])[address] [place] [address] 71201 Calcium [Mass/Vol] 9.9 mg/dL Normal 8.6-10.3 [facility] Comment on above: Result Comment: Conf irmed by repeat analysis Performed By: #### 2 4323-8 ####JUANITO PERES ([id number])[facility] ([facility])[address] [place] [address] 92383 Chloride [Moles/Vol] 107 mmol/L Normal 98-107 [facility] Comment on above: Performed By: #### 2 4323-8 ####JUANITO PERES ([id number])[facility] ([facility])[address] [place] [address] 57449 CO2 [Moles/Vol] 28 mmol/L Normal 21-32 [facility] Comment on above: Performed By: #### 2 4323-8 ####JUANITO PERES ([id number])[facility] ([facility])[address] [place] [address] 71358 Creatinine [Mass/Vol] 1.38 mg/dL High 0.50-1.05 [facility] Comment on above: Result Comment: Conf irmed by repeat analysis Performed By: #### 2 4323-8 ####JUANITO PERES ([id number])[facility] ([facility])[address] [place] [address] 41913 Glomerular filtration rate/1.73 sq M.predicted 39 mL/min/1.73m*2 Low >60 [facility] Comment on above: Result Comment: Calc ulations of estimated GFR are performed using the 2020 CKD-EPI Study Refit equation without the race variable for the IDMS-Traceable creatinine methods. https://jasn.asnjournals.org/content/early//ASN.2020 370955 Performed By: #### 2 4323-8 ####JUANITO PERES ([id number])[facility] ([facility])[address] [place] [address] 93131 Glucose [Mass/Vol] 138 mg/dL High 74-99 [facility] Comment on above: Performed By: #### 2 4323-8 ####JUANITO PERES ([id number])[facility] ([facility])[address] [place] [address] 42551 Potassium [Moles/Vol] 3.1 mmol/L Low 3.5-5.3 [facility] Comment on above: Performed By: #### 2 4323-8 ####JUANITO PERES ([id number])[facility] ([facility])[address] [place] [address] 80976 Protein [Mass/Vol] 5.4 g/dL Low 6.4-8.2 [facility] Comment on above: Performed By: #### 2 4323-8 ####JUANITO PERES ([id number])[facility] ([facility])[address] [place] [address] 61743 Sodium [Moles/Vol] 142 mmol/L Normal 136-145 [facility] Comment on above: Result Comment: Conf irmed by repeat analysis Performed By: #### 2 4323-8 ####JUANITO PERES ([id number])[facility] ([facility])[address] [place] [address] 67386 Urea nitrogen [Mass/Vol] 58 mg/dL High 6-23 [facility] Comment on above: Performed By: #### 2 4323-8 ####JUANITO PERES ([id number])[facility] ([facility])[address] [place] [address] 07832 1,25-dihydroxyvitamin D3 [Ma ss/Vol]on 04-19-2024 1,25-dihydroxyvitamin D [Mass/Vol] 26.0 pg/mL Normal 19.9-79.3 [facility] Comment on above: Result Comment: INTE RPRETIVE INFORMATION: Vitamin D, 1,25-Dihydroxy This test is primarily indicated during patient evaluation for hypercalcemia and renal failure. A normal result does not rule out Vitamin D deficiency. The recommended test for diagnosing Vitamin D deficiency is Vitamin D 25-hydroxy. Performed By: [facility] [address] [place] [address] 17426 Water Pump Installer: Gabriele Sanderson MD, PhD CLIA Number: [id number] Performed By: #### 1 649-3 ####[employer]) ([id number])[address] [place] [address] 65400 Bacteria identified Cx Nom ( U)on 04-19-2024 Interpretation and review of laboratory results Abnormal [facility] Work Phone: [facility] Work Phone: Bacteria identified Cx Nom ( U)Ordered By: Jabari See on 04-19-2024 Interpretation and review of laboratory results Abnormal [facility] CBC panel Auto (Bld)on 04-19 Erythrocyte distribution width (RBC) [Ratio] 13.2 % 11.5 - 14.5 % [facility] Hematocrit (Bld) [Volume fraction] 33.3 % Low 36.0 - 46.0 % [facility] Hemoglobin (Bld) [Mass/Vol] 9.8 g/dL Low 12.0 - 16.0 g/dL [facility] Interpretation and review of laboratory results Abnormal [facility] MCH (RBC) [Entitic mass] 31.5 pg 26.0 - 34.0 pg [facility] MCHC (RBC) [Mass/Vol] 29.4 g/dL Low 32.0 - 36.0 g/dL [facility] MCV (RBC) [Entitic vol] 107 fL High 80 - 100 fL [facility] Nucleated RBC/100 WBC (Bld) [Ratio] 0.0 % [facility] Platelets (Bld) [#/Vol] 228 10*3/uL [facility] RBC (Bld) [#/Vol] 3.11 10*6/uL Low [facility] WBC (Bld) [#/Vol] 11.2 10*3/uL [facility] Erythrocyte distribution width (RBC) [Ratio] 13.2 % Normal 11.5-14.5 [facility] Comment on above: Performed By: #### 5 7021-8 #### JUANITO PERES ([id number]) [facility] ([facility]) [address] [place] [address] 52797 Hematocrit (Bld) [Volume fraction] 33.3 % Low 36.0-46.0 [facility] Comment on above: Performed By: #### 5 7021-8 #### JUANITO PERES ([id number]) [facility] ([facility]) [address] [place] [address] 93700 Hemoglobin (Bld) [Mass/Vol] 9.8 g/dL Low 12.0-16.0 [facility] Comment on above: Performed By: #### 5 7021-8 #### JUANITO PERES ([id number]) [facility] ([facility]) [address] [place] [address] MCH (RBC) [Entitic mass] 31.5 pg Normal 26.0-34.0 [facility] Comment on above: Performed By: #### 5 7021-8 #### JUANITO PERES ([id number]) [facility] ([facility]) [address] [place] [address] MCHC (RBC) [Mass/Vol] 29.4 g/dL Low 32.0-36.0 [facility] Comment on above: Performed By: #### 5 7021-8 #### JUANITO PERES ([id number]) [facility] ([facility]) [address] [place] [address] MCV (RBC) [Entitic vol] 107 fL High 80-100 [facility] Comment on above: Performed By: #### 5 7021-8 #### JUANITO PERES ([id number]) [facility] ([facility]) [address] [place], [place] [phone] Nucleated RBC/100 WBC (Bld) [Ratio] 0.0 /100 WBCs Normal 0.0-0.0 [facility] Comment on above: Performed By: #### 5 7021-8 #### JUANITO PERES ([id number]) [facility] ([facility]) [address] [place] [address] 87898 Platelets (Bld) [#/Vol] 228 x10*3/uL Normal 150-450 [facility] Comment on above: Performed By: #### 5 7021-8 #### JUANITO PERES ([id number]) [facility] ([facility]) [address] [place] [address] 16504 RBC (Bld) [#/Vol] 3.11 x10*6/uL Low 4.00-5.20 [facility] Comment on above: Performed By: #### 5 7021-8 #### JUANITO PERES ([id number]) [facility] ([facility]) [address] [place] [address] WBC (Bld) [#/Vol] 11.2 x10*3/uL Normal 4.4-11.3 [facility] Comment on above: Performed By: #### 5 7021-8 #### JUANITO PERES ([id number]) [facility] ([facility]) [address] [place] [address] Comprehensive metabolic 2000 panelon 04-19-2024 Albumin BCP dye [Mass/Vol] 3.3 g/dL Low 3.4 - 5.0 g/dL [facility] ALP [Catalytic activity/Vol] 55 U/L 33 - 136 U/L [facility] ALT With P-5'-P [Catalytic activity/Vol] 11 U/L 7 - 45 U/L [facility] Comment on above: Patients treated wit h Sulfasalazine may generate falsely decreased results for ALT. Anion gap [Moles/Vol] 8 mmol/L Low 10 - 2 0 mmol/L [facility] AST With P-5'-P [Catalytic activity/Vol] 13 U/L 9 - 39 U/L [facility] Bilirubin [Mass/Vol] 0.2 mg/dL 0.0 - 1 .2 mg/dL [facility] Calcium [Mass/Vol] 12.5 mg/dL High 8.6 - 10. 3 mg/dL [facility] Comment on above: Reviewed previous re sults Chloride [Moles/Vol] 116 mmol/L High 98 - 10 7 mmol/L [facility] CO2 [Moles/Vol] 35 mmol/L High 21 - 32 mmol/L [facility] Creatinine [Mass/Vol] 1.92 mg/dL High 0.50 - 1.05 mg/dL [facility] Comment on above: Reviewed previous re sults GFR/1.73 sq M.predicted among non-blacks MDRD (S/P/Bld) [Vol rate/Area] 26 mL/min/{1.73_m2} Low - PINF [facility] Comment on above: Calculations of tiffani mated GFR are performed using the 2020 CKD-EPI Study Refit equation without the race variable for the IDMS-Traceable creatinine methods. https://jasn.asnjournals.org/content//ASN.2020 926132 Glucose [Mass/Vol] 120 mg/dL High 74 - 99 mg/dL [facility] Interpretation and review of laboratory results Abnormal [facility] Potassium [Moles/Vol] 3.5 mmol/L 3.5 - 5.3 mmol/L [facility] Protein [Mass/Vol] 5.8 g/dL Low 6.4 - 8.2 g/dL [facility] Sodium [Moles/Vol] 155 mmol/L High 136 - 145 mmol/L [facility] Urea nitrogen [Mass/Vol] 97 mg/dL Critically high 6 - 23 mg/dL [facility] Comment on above: Reviewed previous re sults Previous result verified on 04/18/2024 1036 on specimen/case [id number] called with component UREA for procedure Basic metabolic panel with value 145 mg/dL. [facility] Albumin BCP dye [Mass/Vol] 3.3 g/dL Low 3.4-5.0 [facility] Comment on above: Performed By: #### [id number] #### JUANITO PERES ([id number]) [facility] ([facility]) [address] [place] [id number] ALP [Catalytic activity/Vol] 55 U/L Normal 33-136 [facility] Comment on above: Performed By: #### 5 7021-8 #### JUANITO PERES ([id number]) [facility] ([facility]) [facility] [place] [address] ALT With P-5'-P [Catalytic activity/Vol] 11 U/L Normal 7-45 [facility] Comment on above: Result Comment: Stephanie ents treated with Sulfasalazine may generate falsely decreased results for ALT. Performed By: #### 5 7021-8 #### JUANITO PERES ([id number]) [facility] ([facility]) [facility] [place] [address] Anion gap [Moles/Vol] 8 mmol/L Low 10-20 [facility] Comment on above: Performed By: #### 5 7021-8 #### JUANITO PERES ([id number]) [facility] ([facility]) [address] [place] [address]87 AST With P-5'-P [Catalytic activity/Vol] 13 U/L Normal 9-39 [facility] Comment on above: Performed By: #### 5 7021-8 #### JUANITO PERES ([id number]) [facility] ([facility]) [address] [place] [address] 85052 Bilirubin [Mass/Vol] 0.2 mg/dL Normal 0.0-1.2 [facility] Comment on above: Performed By: #### 5 7021-8 #### JUANITO PERES ([id number]) [facility] ([facility]) [address] [place] [address] 77492 Calcium [Mass/Vol] 12.5 mg/dL High 8.6-10.3 [facility] Comment on above: Result Comment: Revi ewed previous results Performed By: #### 5 7021-8 #### JUANITO PERES ([id number]) [facility] ([facility]) [address] [place] [address] 06955 Chloride [Moles/Vol] 116 mmol/L High 98-107 [facility] Comment on above: Performed By: #### 5 7021-8 #### JUANITO PERES ([id number]) [facility] ([facility]) [address] [place] [address] 34426 CO2 [Moles/Vol] 35 mmol/L High 21-32 [facility] Comment on above: Performed By: #### 5 7021-8 #### JUANITO PERES ([id number]) [facility] ([facility]) [address] [place] [address] 17809 Creatinine [Mass/Vol] 1.92 mg/dL High 0.50-1.05 [facility] Comment on above: Result Comment: Revi ewed previous results Performed By: #### 5 7021-8 #### JUANITO PERES ([id number]) [facility] ([facility]) [facility] [place] [address] Glomerular filtration rate/1.73 sq M.predicted 26 mL/min/1.73m*2 Low >60 [facility] Comment on above: Result Comment: Calc ulations of estimated GFR are performed using the 2020 CKD-EPI Study Refit equation without the race variable for the IDMS-Traceable creatinine methods. https://jasn.asnjournals.org/content/early//ASN.2020 300448 Performed By: #### 5 7021-8 #### JUANITO PERES ([id number]) [facility] ([facility]) [address] [place] [address] 72222 Glucose [Mass/Vol] 120 mg/dL High 74-99 [facility] Comment on above: Performed By: #### 5 7021-8 #### JUANITO PERES ([id number]) [facility] ([facility]) [address] [place] [address] 96619 Potassium [Moles/Vol] 3.5 mmol/L Normal 3.5-5.3 [facility] Comment on above: Performed By: #### 5 7021-8 #### JUANITO PERES ([id number]) [facility] ([facility]) [address] [place] [address] 16511 Protein [Mass/Vol] 5.8 g/dL Low 6.4-8.2 [facility] Comment on above: Performed By: #### 5 7021-8 #### JUANITO PERES ([id number]) [facility] ([facility]) [address] [place] [address] 26100 Sodium [Moles/Vol] 155 mmol/L High 136-145 [facility] Comment on above: Performed By: #### 5 7021-8 #### JUANITO PERES ([id number]) [facility] ([facility]) [address] [place] [address] 92992 Urea nitrogen [Mass/Vol] 97 mg/dL Critically high 6-23 [facility] Comment on above: Result Comment: Revi ewed previous results Previous result verified on 04/18/2024 1036 on specimen/case [id number] called with component UREA for procedure Basic metabolic panel with value 145 mg/dL. Performed By: #### 5 7021-8 #### JUANITO PERES ([id number]) [facility] ([facility]) [address] [place], [place] [phone] Extra Urine Otto Tubeon 04-10 Extra Tube Hold for add-ons. [facility] Comment on above: Auto resulted. [facility] Glucose Test strip manual (B ld) [Mass/Vol]on 04-19-2024 Glucose [Mass/Vol] 135 mg/dL High 74 - 99 mg/dL [facility] Interpretation and review of laboratory results Abnormal [facility] Glucose [Mass/Vol] 135 mg/dL High 74-99 [facility] Comment on above: Performed By: #### 5 7021-8 #### JUANITO PERES ([id number]) [facility] ([facility]) [address] [place], [place] [phone] Glucose [Mass/Vol] 113 mg/dL High 74 - 99 mg/dL [facility] Interpretation and review of laboratory results Abnormal [facility] Glucose [Mass/Vol] 113 mg/dL High 74-99 [facility] Comment on above: Performed By: #### 5 7021-8 #### JUANITO PERES ([id number]) [facility] ([facility]) [address] [place], [place] [phone] No Panel Informationon 04-19 Extra Tube Hold for add-ons. [facility] Comment on above: Auto resulted. [facility] Osmolality (U) [Osmolality]O rdered By: Dhruv Ceballos on 04-19-2024 Interpretation and review of laboratory results Normal [facility] Osmolality, urineOrdered By: Dhruv Ceballos on 04-19-2024 Osmolality (U) [Osmolality] 400 mosm/kg [facility] PTH, Intacton 04-19-2024 Parathyrin.intact [Mass/Vol] 8.8 pg/mL Low 18.5 - 88.0 pg/mL [facility] Parathyrin.intacton 04-19-20 24 Parathyrin.intact [Mass/Vol] 8.8 pg/mL Low 18.5-88.0 [facility] Comment on above: Performed By: #### 2 731-8 ####RICO Mckeon ([id number])[facility] ([facility])[address] [place] [address] Parathyrin.intact [Mass/Vol] on 04-19-2024 Interpretation and review of laboratory results Abnormal [facility] SARS coronavirus 2 RNAon SARS-CoV-2 (COVID-19) RNA ELGIN+probe Ql (Resp) Not detected Normal Not Detected [facility] Comment on above: Order Comment: This assay has received FDA Emergency Use Authorization (EUA) and is only authorized for the duration of time that circumstances exist to justify the authorization of the emergency use of in vitro diagnostic tests for the detection of SARS-CoV-2 virus and/or diagnosis of COVID-19 infection under section 564(b)(1) of the Act, 21 U.S.C. 360bbb-3(b)(1). This assay is an in vitro diagnostic nucleic acid amplification test for the qualitative detection of SARS-CoV-2 from nasopharyngeal specimens and has been validated for use at [facility]. Negative results do not preclude COVID-19 infections and should not be used as the sole basis for diagnosis, treatment, or other management decisions. Performed By: #### 5 7021-8 #### SOLOMON JA ([id number]) [facility] ([facility]) [address] [place] [address] SARS-CoV-2 (COVID-19) RNA NA A+probe Ql (Resp)on 04-19-2024 Interpretation and review of laboratory results Normal [facility] This assay has recei john FDA Emergency Use Authorization (EUA) and is only authorized for the duration of time that circumstances exist to justify the authorization of the emergency use of in vitro diagnostic tests for the detection of SARS-CoV-2 virus and/or diagnosis of COVID-19 infection under section 564(b)(1) of the Act, 21 U.S.C. 360bbb-3(b)(1). This assay is an in vitro diagnostic nucleic acid amplification test for the qualitative detection of SARS-CoV-2 from nasopharyngeal specimens and has been validated for use at [facility]. Negative results do not preclude COVID-19 infections and should not be used as the sole basis for diagnosis, treatment, or other management decisions. [facility] Sars-CoV-2 PCRon 04-19-2024 SARS-CoV-2 (COVID-19) RNA ELGIN+probe Ql (Resp) Not detected Not Detected [facility] Sodium (U) [Moles/Vol]on Creatinine (U) [Mass/Vol] 17.0 mg/dL Low 20.0 - 320.0 mg/dL [facility] Interpretation and review of laboratory results Abnormal [facility] Sodium/Creatinine (U) [Ratio] 535 Not established. mmol/g Creat [facility] Sodium, Urine Randomon 04-19 Sodium (U) [Moles/Vol] 91 mmol/L [facility] U[facility] Cultureon 04-19-2024 Bacteria identified Cx Nom (U) Multiple organisms present, probable contamination. Repeat culture if clinically indicated. Abnormal [facility] Work Phone: Urine CultureOrdered By: Marcello See on 04-19-2024 Bacteria identified Cx Nom (U) Multiple organisms present, probable contamination. Repeat culture if clinically indicated. Abnormal [facility] Bacteria identifiedon 2023 Bacteria identified Cx Nom (U) Test: Urine Culture Specimen Source: Clean Catch/Voided Specimen Type: Urine Specimen Date: 04/18/20241849 Result Date: 04/19/20242129 Result Status: Final result Abnormal: Yes Resulting Lab: [facility] [address] [address] CULTURE Multiple organisms present, probable contamination. Repeat culture if clinically indicated. (Abnormal) Abnormal [facility] Comment on above: Performed By: #### 6 30-4 ####RICO Mckeon ([id number])[facility] ([facility])[address] [place] [address] Bacteria identified Cx Nom (Bld) Test: Blood Culture Specimen Source: Peripheral Venipuncture Specimen Type: Blood culture Specimen Date: 04/18/2024 1140 Result Date: 04/22/2024 1901 Result Status: Final result Abnormal: No Resulting Lab: [facility] [address] [place] [address] CULTURE No growth at 4 days - FINAL REPORT Normal [facility] Comment on above: Performed By: #### 5 3315-8 #### JUANITO PERES ([id number]) [facility] ([facility]) [address] [place] [address] 99058 Bacteria identified Cx Nom (U) Test: Urine Culture Specimen Source: Straight Catheter Specimen Type: Urine Specimen Date: 04/18/2024 0915 Result Date: 04/19/2024 1701 Result Status: Final result Abnormal: Yes Resulting Lab: [facility] [address] [place] [address] CULTURE Multiple organisms present, probable contamination. Repeat culture if clinically indicated. (Abnormal) Abnormal [facility] Comment on above: Performed By: #### 6 30-4 ####RICO Mckeon ([id number])[facility] ([facility])[address] [place], [place] [phone] Basic metabolic 2000 panelon 04-18-2024 Anion gap [Moles/Vol] 9 mmol/L Low 10 - 2 0 mmol/L [facility] Calcium [Mass/Vol] 17.3 mg/dL Critically high 8.6 - 10.3 mg/dL [facility] Chloride [Moles/Vol] 111 mmol/L High 98 - 10 7 mmol/L [facility] CO2 [Moles/Vol] 43 mmol/L Critically high 21 - 32 mmol/L [facility] Creatinine [Mass/Vol] 2.71 mg/dL High 0.50 - 1.05 mg/dL [facility] GFR/1.73 sq M.predicted among non-blacks MDRD (S/P/Bld) [Vol rate/Area] 17 mL/min/{1.73_m2} Low - PINF [facility] Comment on above: Calculations of tiffani mated GFR are performed using the 2020 CKD-EPI Study Refit equation without the race variable for the IDMS-Traceable creatinine methods. https://jasn.asnjournals.org/content/early//ASN.2020 501599 Glucose [Mass/Vol] 126 mg/dL High 74 - 99 mg/dL [facility] Potassium [Moles/Vol] 4.9 mmol/L 3.5 - 5.3 mmol/L [facility] Sodium [Moles/Vol] 158 mmol/L High 136 - 145 mmol/L [facility] Urea nitrogen [Mass/Vol] 145 mg/dL Critically high 6 - 23 mg/dL [facility] Anion gap [Moles/Vol] 9 mmol/L Low 10-20 [facility] Comment on above: Performed By: #### 2 4321-2 #### JUANITO PERES ([id number]) [facility] ([facility]) [facility] [place] [address] Calcium [Mass/Vol] 17.3 mg/dL Critically high 8.6-10.3 [facility] Comment on above: Performed By: #### 2 4321-2 #### JUANITO PERES ([id number]) [facility] ([facility]) [address] [place] [address] Chloride [Moles/Vol] 111 mmol/L High 98-107 [facility] Comment on above: Performed By: #### 2 4321-2 #### JUANITO PERES ([id number]) [facility] ([facility]) [address] [place] [address] CO2 [Moles/Vol] 43 mmol/L Critically high 21-32 [facility] Comment on above: Performed By: #### 2 4321-2 #### JUANITO PERES ([id number]) [facility] ([facility]) [facility] [place] [address] Creatinine [Mass/Vol] 2.71 mg/dL High 0.50-1.05 [facility] Comment on above: Performed By: #### 2 4321-2 #### JUANITO PERES ([id number]) [facility] ([facility]) [address] [place] [address]17 Glomerular filtration rate/1.73 sq M.predicted 17 mL/min/1.73m*2 Low >60 [facility] Comment on above: Result Comment: Calc ulations of estimated GFR are performed using the 2020 CKD-EPI Study Refit equation without the race variable for the IDMS-Traceable creatinine methods. https://jasn.asnjournals.org/content/early//ASN.2020 368198 Performed By: #### 2 4321-2 #### JUANITO PERES ([id number]) [facility] ([facility]) [address] [place] [address] 49682 Glucose [Mass/Vol] 126 mg/dL High 74-99 [facility] Comment on above: Performed By: #### 2 432-2 #### JUANITO PERES ([id number]) [facility] ([facility]) [address] [place] [address] 60761 Potassium [Moles/Vol] 4.9 mmol/L Normal 3.5-5.3 [facility] Comment on above: Performed By: #### 2 4321-2 #### JUANITO PERES ([id number]) [facility] ([facility]) [address] [place] [address] 49732 Sodium [Moles/Vol] 158 mmol/L High 136-145 [facility] Comment on above: Performed By: #### 2 4321-2 #### JUANITO PERES ([id number]) [facility] ([facility]) [address] [place] [address] 60345 Urea nitrogen [Mass/Vol] 145 mg/dL Critically high 6-23 [facility] Comment on above: Performed By: #### 2 4321-2 #### SOLOMON JA ([id number]) [facility] ([facility]) [address] [place] [address] CBC W Auto Differential pane l (Bld)on 04-18-2024 Basophils (Bld) [#/Vol] 0.04 10*3/uL [facility] Basophils/100 WBC (Bld) 0.3 % 0.0 - 2.0 % [facility] Eosinophils (Bld) [#/Vol] 0.64 10*3/uL High [facility] Eosinophils/100 WBC (Bld) 5.1 % 0.0 - 6.0 % [facility] Erythrocyte distribution width (RBC) [Ratio] 13.5 % 11.5 - 14.5 % [facility] Hematocrit (Bld) [Volume fraction] 39.8 % 36.0 - 46.0 % [facility] Hemoglobin (Bld) [Mass/Vol] 11.7 g/dL Low 12.0 - 16.0 g/dL [facility] Immature granulocytes (Bld) [#/Vol] 0.03 10*3/uL [facility] Immature granulocytes/100 WBC (Bld) 0.2 % 0.0 - 0.9 % [facility] Comment on above: Immature Granulocyte Count (IG) includes promyelocytes, myelocytes and metamyelocytes but does not include bands. Percent differential counts (%) should be interpreted in the context of the absolute cell counts (cells/UL). Interpretation and review of laboratory results Abnormal [facility] Lymphocytes (Bld) [#/Vol] 2.95 10*3/uL [facility] Lymphocytes/100 WBC (Bld) 23.3 % 13.0 - 44.0 % [facility] MCH (RBC) [Entitic mass] 32.1 pg 26.0 - 34.0 pg [facility] MCHC (RBC) [Mass/Vol] 29.4 g/dL Low 32.0 - 36.0 g/dL [facility] MCV (RBC) [Entitic vol] 109 fL High 80 - 100 fL [facility] Monocytes (Bld) [#/Vol] 0.72 10*3/uL [facility] Monocytes/100 WBC (Bld) 5.7 % 2.0 - 10.0 % [facility] Neutrophils (Bld) [#/Vol] 8.28 10*3/uL High [facility] Comment on above: Percent differential counts (%) should be interpreted in the context of the absolute cell counts (cells/uL). Neutrophils/100 WBC (Bld) 65.4 % 40.0 - 80.0 % [facility] Nucleated RBC/100 WBC (Bld) [Ratio] 0.0 % [facility] Platelets (Bld) [#/Vol] 268 10*3/uL [facility] RBC (Bld) [#/Vol] 3.65 10*6/uL Low [facility] WBC (Bld) [#/Vol] 12.7 10*3/uL High [facility] Basophils (Bld) [#/Vol] 0.04 x10*3/uL Normal 0.00-0.10 [facility] Comment on above: Performed By: #### 5 7021-8 #### JUANITO PERES ([id number]) [facility] ([facility]) [address] [place] [address] 93396 Basophils/100 WBC (Bld) 0.3 % Normal 0.0-2.0 [facility] Comment on above: Performed By: #### 5 7021-8 #### JUANITO PERES ([id number]) [facility] ([facility]) [facility] [place] [address] Eosinophils (Bld) [#/Vol] 0.64 x10*3/uL High 0.00-0.40 [facility] Comment on above: Performed By: #### 5 7021-8 #### JUANITO PERES ([id number]) [facility] ([facility]) [address] [place] [address] Eosinophils/100 WBC (Bld) 5.1 % Normal 0.0-6.0 [facility] Comment on above: Performed By: #### 5 7021-8 #### JUANITO PERES ([id number]) [facility] ([facility]) [address] [place] [address] Erythrocyte distribution width (RBC) [Ratio] 13.5 % Normal 11.5-14.5 [facility] Comment on above: Performed By: #### 5 7021-8 #### JUANITO PERES ([id number]) [facility] ([facility]) [address] [place] [address] Hematocrit (Bld) [Volume fraction] 39.8 % Normal 36.0-46.0 [facility] Comment on above: Performed By: #### 5 7021-8 #### JUANITO PERES ([id number]) [facility] ([facility]) [address] [place] [address] Hemoglobin (Bld) [Mass/Vol] 11.7 g/dL Low 12.0-16.0 [facility] Comment on above: Performed By: #### 5 7021-8 #### JUANITO PERES ([id number]) [facility] ([facility]) [address] [place] [address] Immature granulocytes (Bld) [#/Vol] 0.03 x10*3/uL Normal 0.00-0.50 [facility] Comment on above: Performed By: #### 5 7021-8 #### JUANITO PERES ([id number]) [facility] ([facility]) [address] [place] [address] Immature granulocytes/100 WBC (Bld) 0.2 % Normal 0.0-0.9 [facility] Comment on above: Result Comment: Arti ture Granulocyte Count (IG) includes promyelocytes, myelocytes and metamyelocytes but does not include bands. Percent differential counts (%) should be interpreted in the context of the absolute cell counts (cells/UL). Performed By: #### 5 7021-8 #### JUANITO PERES ([id number]) [facility] ([facility]) [address] [place], [place] [phone] Lymphocytes (Bld) [#/Vol] 2.95 x10*3/uL Normal 0.80-3.00 [facility] Comment on above: Performed By: #### 5 7021-8 #### JUANITO PERES ([id number]) [facility] ([facility]) [address] [place] [address] 72178 Lymphocytes/100 WBC (Bld) 23.3 % Normal 13.0-44.0 [facility] Comment on above: Performed By: #### 5 7021-8 #### JUANITO PERES ([id number]) [facility] ([facility]) [address] [place] [address] 95293 MCH (RBC) [Entitic mass] 32.1 pg Normal 26.0-34.0 [facility] Comment on above: Performed By: #### 5 7021-8 #### JUANITO PERES ([id number]) [facility] ([facility]) [address] [place] [address] 94032 MCHC (RBC) [Mass/Vol] 29.4 g/dL Low 32.0-36.0 [facility] Comment on above: Performed By: #### 5 7021-8 #### JUANITO PERES ([id number]) [facility] ([facility]) [address] [place] [address] 11475 MCV (RBC) [Entitic vol] 109 fL High 80-100 [facility] Comment on above: Performed By: #### 5 7021-8 #### JUANITO PERES ([id number]) [facility] ([facility]) [address] [place] [address] 47949 Monocytes (Bld) [#/Vol] 0.72 x10*3/uL Normal 0.05-0.80 [facility] Comment on above: Performed By: #### 5 7021-8 #### JUANITO PERES (77654) [facility] ([facility]) [address] [place] [address] 40883 Monocytes/100 WBC (Bld) 5.7 % Normal 2.0-10.0 [facility] Comment on above: Performed By: #### 5 7021-8 #### JUANITO PERES ([id number]) [facility] ([facility]) [address] [place] [address] 07858 Neutrophils (Bld) [#/Vol] 8.28 x10*3/uL High 1.60-5.50 [facility] Comment on above: Result Comment: Perc ent differential counts (%) should be interpreted in the context of the absolute cell counts (cells/uL). Performed By: #### 5 7021-8 #### JUANITO PERES ([id number]) [facility] ([facility]) [address] [place] [address] 31148 Neutrophils/100 WBC (Bld) 65.4 % Normal 40.0-80.0 [facility] Comment on above: Performed By: #### 5 7021-8 #### JUANITO PERES ([id number]) [facility] ([facility]) [address] [place] [address] 07344 Nucleated RBC/100 WBC (Bld) [Ratio] 0.0 /100 WBCs Normal 0.0-0.0 [facility] Comment on above: Performed By: #### 5 7021-8 #### JUANITO PERES ([id number]) [facility] ([facility]) [address] [place] [address] 23712 Platelets (Bld) [#/Vol] 268 x10*3/uL Normal 150-450 [facility] Comment on above: Performed By: #### 5 7021-8 #### JUANITO PERES ([id number]) [facility] ([facility]) [address] [place] [address] 26579 RBC (Bld) [#/Vol] 3.65 x10*6/uL Low 4.00-5.20 [facility] [facility] Comment on above: Performed By: #### 5 7021-8 #### JUANITO PERES ([id number]) [facility] ([facility]) [address] [place] [address] 26479 WBC (Bld) [#/Vol] 12.7 x10*3/uL High 4.4-11.3 [facility] Comment on above: Performed By: #### 5 7021-8 #### SOLOMON JA ([id number]) [facility] ([facility]) [address] [place] [address] CT HEAD WO IV CONTRASTon CT HEAD WO IV CONTRAST Interpreted By: Selma Moya, STUDY: CT HEAD WO IV CONTRAST; 04/18/2024 11:14 am INDICATION: Signs/Symptoms:MENTAL STATUS CHANGE. COMPARISON: 02/10/2023 ACCESSION NUMBER(S): [id number] ORDERING CLINICIAN: LAZARO HANDY TECHNIQUE: Examination was performed in the axial plane with sagittal and coronal reconstructions. Bone and soft tissue algorithms were performed. FINDINGS: INTRACRANIAL: Status post bifrontal craniotomies. 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 This is unchanged. No mass or mass effect is identified. There is no hemorrhage or subdural fluid collection. There is no acute infarct. EXTRACRANIAL: Visualized paranasal sinuses and mastoids are clear. IMPRESSION: 1. No acute intracranial pathology. 2. 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 MACRO: None Signed by: Selma Moya 04/18/2024 11:31 AM Dictation workstation: [id number] [facility] CT Head WO contraston 2023 1. No acute intracranial pathology. 2. 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 MACRO: None Signed by: Selma Moya 04/18/2024 11:31 AM Dictation workstation: [id number] MMODAL Interpreted By: Selma Moya, STUDY: CT HEAD WO IV CONTRAST; 04/18/2024 11:14 am INDICATION: Signs/Symptoms:MENTAL STATUS CHANGE. COMPARISON: 02/10/2023 ACCESSION NUMBER(S): [id number] ORDERING CLINICIAN: LAZARO HANDY TECHNIQUE: Examination was performed in the axial plane with sagittal and coronal reconstructions. Bone and soft tissue algorithms were performed. FINDINGS: INTRACRANIAL: Status post bifrontal craniotomies. 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 This is unchanged. No mass or mass effect is identified. There is no hemorrhage or subdural fluid collection. There is no acute infarct. EXTRACRANIAL: Visualized paranasal sinuses and mastoids are clear. [facility] MM[facility] Selma Moya M D - 04/18/2024 Interpreted By: Selma Moya, STUDY: CT HEAD WO IV CONTRAST; 04/18/2024 11:14 am INDICATION: Signs/Symptoms:MENTAL STATUS CHANGE. COMPARISON: 02/10/2023 ACCESSION NUMBER(S): [id number] ORDERING CLINICIAN: LAZARO HANDY TECHNIQUE: Examination was performed in the axial plane with sagittal and coronal reconstructions. Bone and soft tissue algorithms were performed. FINDINGS: INTRACRANIAL: Status post bifrontal craniotomies. 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 This is unchanged. No mass or mass effect is identified. There is no hemorrhage or subdural fluid collection. There is no acute infarct. EXTRACRANIAL: Visualized paranasal sinuses and mastoids are clear. IMPRESSION: 1. No acute intracranial pathology. 2. 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 MACRO: None Signed by: Selma Moya 04/18/2024 11:31 AM Dictation workstation: [id number] [facility] Work Phone: Radiology Study observation (narrative) [facility] Work Phone: CT Head WO contrastOrdered B y: Selma Moya on 04-18-2024 [facility] Work Phone: Critical Careon 04-18-2024 Lazaro Handy MD 04/18/2024 11:44 AM Critical Care Performed by: Lazaro Handy MD Authorized by: Lazaro Handy MD Critical care provider statement: Critical care time (minutes): 42 Critical care time was exclusive of: Separately billable procedures and treating other patients and teaching time Critical care was necessary to treat or prevent imminent or life-threatening deterioration of the following conditions: Electrolyte abnormalities. Critical care was time spent personally by me on the following activities: Blood draw for specimens, development of treatment plan with patient or surrogate, discussions with primary provider, evaluation of patient's response to treatment, examination of patient, obtaining history from patient or surrogate, review of old charts, re-evaluation of patient's condition, pulse oximetry, ordering and review of radiographic studies, ordering and review of laboratory studies and ordering and performing treatments and interventions [facility] Work Phone: [facility] Work Phone: ECG 12-LEADon 04-18-2024 ECG 12-LEAD Ventricular Rate 104 Atrial Rate 104 P-R Interval 140 QRS Duration 76 Q-T Interval 260 QTC Calculation(Bazett) 341 P [place] 80 R [place] 5 T [place] 48 QRS Count 17 Q Onset 228 P Onset 158 P Offset 212 T Offset 358 QTC Fredericia 312 Diagnosis Sinus tachycardia Possible Anterior infarct , age undetermined Abnormal ECG When compared with ECG of 18-APR-2024 01:59, (unconfirmed) Vent. rate has increased BY 34 BPM Borderline criteria for Anterior infarct are now Present Nonspecific T wave abnormality now evident in Inferior leads Nonspecific T wave abnormality now evident in Lateral leads QT has shortened See ED provider note for full interpretation and clinical correlation Confirmed by Meri Montoya ([id number]) on 04/24/2024 11:05:22 AM Normal [facility] Extra Urine Otto Tubeon 09- Extra Tube Hold for add-ons. [facility] Comment on above: Auto resulted. [facility] FLUAV and FLUBV RNA ELGIN+prob e Nom (Unsp spec)on 04-18-2024 FLUAV RNA ELGIN+probe Ql (Resp) Not detected Not Detected [facility] FLUBV RNA ELGIN+probe Ql (Resp) Not detected Not Detected [facility] This assay is an in vitro diagnostic multiplex nucleic acid amplification test for the detection and discrimination of Influenza A & B from nasopharyngeal specimens, and has been validated for use at [facility]. Negative results do not preclude Influenza A/B infections, and should not be used as the sole basis for diagnosis, treatment, or other management decisions. If Influenza A/B and RSV PCR results are negative, testing for Parainfluenza virus, Adenovirus and Metapneumovirus is routinely performed for [facility] pediatric oncology and intensive care inpatients, and is available on other patients by placing an add-on request. [facility] FLUAV RNA ELGIN+probe Ql (Resp) Not detected Normal Not Detected [facility] Comment on above: Order Comment: This assay is an in vitro diagnostic multiplex nucleic acid amplification test for the detection and discrimination of Influenza A & B from nasopharyngeal specimens, and has been validated for use at [facility]. Negative results do not preclude Influenza A/B infections, and should not be used as the sole basis for diagnosis, treatment, or other management decisions. If Influenza A/B and RSV PCR results are negative, testing for Parainfluenza virus, Adenovirus and Metapneumovirus is routinely performed for [facility] pediatric oncology and intensive care inpatients, and is available on other patients by placing an add-on request. Performed By: #### 4 8509-4 #### JUANITO PERES ([id number]) [facility] ([facility]) [address] [place] [address] FLUBV RNA ELGIN+probe Ql (Resp) Not detected Normal Not Detected [facility] Comment on above: Order Comment: This assay is an in vitro diagnostic multiplex nucleic acid amplification test for the detection and discrimination of Influenza A & B from nasopharyngeal specimens, and has been validated for use at [facility]. Negative results do not preclude Influenza A/B infections, and should not be used as the sole basis for diagnosis, treatment, or other management decisions. If Influenza A/B and RSV PCR results are negative, testing for Parainfluenza virus, Adenovirus and Metapneumovirus is routinely performed for [facility] pediatric oncology and intensive care inpatients, and is available on other patients by placing an add-on request. Performed By: #### 4 8509-4 #### JUANITO PERES ([id number]) [facility] ([facility]) [address] [place] [address] 09662 Ferritinon 04-18-2024 Ferritin [Mass/Vol] 53 ng/mL 8 - 150 ng/mL [facility] Ferritin [Mass/Vol] 53 ng/mL Normal 8-150 [facility] Comment on above: Performed By: #### 5 7021-8 #### JUANITO PERES ([id number]) [facility] ([facility]) [address] [place] [address] 19979 Ferritin [Mass/Vol]on 2023 Interpretation and review of laboratory results Normal [facility] Glucose Test strip manual (B ld) [Mass/Vol]on 04-18-2024 Glucose [Mass/Vol] 130 mg/dL High 74 - 99 mg/dL [facility] Interpretation and review of laboratory results Abnormal [facility] Glucose [Mass/Vol] 130 mg/dL High 74-99 [facility] Comment on above: Performed By: #### 5 7021-8 #### JUANITO PERES ([id number]) [facility] ([facility]) [address] [place] [address] 50300 Glucose [Mass/Vol] 106 mg/dL High 74 - 99 mg/dL [facility] Interpretation and review of laboratory results Abnormal [facility] Glucose [Mass/Vol] 106 mg/dL High 74-99 [facility] Comment on above: Performed By: #### 5 3315-8 #### JUANITO PERES ([id number]) [facility] ([facility]) [facility] [place] [address] Hepatic function 2000 panelo n 04-18-2024 Albumin BCP dye [Mass/Vol] 3.8 g/dL 3.4 - 5.0 g/dL [facility] ALP [Catalytic activity/Vol] 67 U/L 33 - 136 U/L [facility] ALT With P-5'-P [Catalytic activity/Vol] 15 U/L 7 - 45 U/L [facility] Comment on above: Patients treated wit h Sulfasalazine may generate falsely decreased results for ALT. AST With P-5'-P [Catalytic activity/Vol] 15 U/L 9 - 39 U/L [facility] Bilirubin [Mass/Vol] 0.2 mg/dL 0.0 - 1 .2 mg/dL [facility] Bilirubin.direct [Mass/Vol] 0.1 mg/dL 0.0 - 0.3 mg/dL [facility] Protein [Mass/Vol] 6.8 g/dL 6.4 - 8.2 g/dL [facility] Albumin BCP dye [Mass/Vol] 3.8 g/dL Normal 3.4-5.0 [facility] Comment on above: Performed By: #### 5 3314-8 #### JUANITO PERES ([id number]) [facility] ([facility]) [address] [place] [address] 38450 ALP [Catalytic activity/Vol] 67 U/L Normal 33-136 [facility] Comment on above: Performed By: #### 5 3314-8 #### JUANITO PERES ([id number]) [facility] ([facility]) [address] [place] [address] 01098 ALT With P-5'-P [Catalytic activity/Vol] 15 U/L Normal 7-45 [facility] Comment on above: Result Comment: Stephanie ents treated with Sulfasalazine may generate falsely decreased results for ALT. Performed By: #### 5 3314-8 #### JUANITO PERES ([id number]) [facility] ([facility]) [address] [place] [address] 09119 AST With P-5'-P [Catalytic activity/Vol] 15 U/L Normal 9-39 [facility] Comment on above: Performed By: #### 5 3314-8 #### JUANITO PERES ([id number]) [facility] ([facility]) [address] [place] [address] 82933 Bilirubin [Mass/Vol] 0.2 mg/dL Normal 0.0-1.2 [facility] Comment on above: Performed By: #### 5 3314-8 #### JUANITO PERES ([id number]) [facility] ([facility]) [address] [place] [address] 40856 Bilirubin.direct [Mass/Vol] 0.1 mg/dL Normal 0.0-0.3 [facility] Comment on above: Performed By: #### 5 3314-8 #### JUANITO PERES ([id number]) [facility] ([facility]) [address] [place] [address] 73891 Protein [Mass/Vol] 6.8 g/dL Normal 6.4-8.2 [facility] Comment on above: Performed By: #### 5 3315-8 #### JUANITO PERES ([id number]) [facility] ([facility]) [address] [place] [address] 38038 Iron and Iron binding capaci ty panelon 04-18-2024 Interpretation and review of laboratory results Abnormal [facility] Iron [Mass/Vol] 72 ug/dL 35 - 150 ug/dL [facility] Iron binding capacity [Mass/Vol] 323 ug/dL 240 - 445 ug/dL [facility] Iron binding capacity.unsaturated [Mass/Vol] 251 ug/dL 110 - 370 ug/dL [facility] Iron saturation [Mass fraction] 22 % Low 25 - 45 % [facility] Iron [Mass/Vol] 72 ug/dL Normal 35-150 [facility] Comment on above: Performed By: #### 5 7021-8 #### JUANITO PERES ([id number]) [facility] ([facility]) [address] [place] [address] 17055 Iron binding capacity [Mass/Vol] 323 ug/dL Normal 240-445 [facility] Comment on above: Performed By: #### 5 7021-8 #### JUANITO PERES ([id number]) [facility] ([facility]) [address] [place] [address] 25853 Iron binding capacity.unsaturated [Mass/Vol] 251 ug/dL Normal 110-370 [facility] Comment on above: Performed By: #### 5 7021-8 #### JUANITO PERES ([id number]) [facility] ([facility]) [address] [place] [address] 48080 Iron saturation [Mass fraction] 22 % Low 25-45 [facility] Comment on above: Performed By: #### 5 7021-8 #### JUANITO PERES ([id number]) [facility] ([facility]) [address] [place] [address] 93552 Lactateon 04-18-2024 Lactate [Moles/Vol] 1.3 mmol/L 0.4 - 2. 0 mmol/L [facility] Lactate [Moles/Vol] 1.3 mmol/L Normal 0.4-2.0 [facility] Comment on above: Order Comment: Venip uncture immediately after or during the administration of Metamizole may lead to falsely low results. Testing should be performed immediatelyprior to Metamizole dosing. Performed By: #### 5 3315-8 #### JUANITO PERES ([id number]) [facility] ([facility]) [facility] [place] [address] Lactate [Moles/Vol] 2.2 mmol/L High 0.4 - 2. 0 mmol/L [facility] Lactate [Moles/Vol] 2.2 mmol/L High 0.4-2.0 [facility] Comment on above: Order Comment: Venip uncture immediately after or during the administration of Metamizole may lead to falsely low results. Testing should be performed immediately prior to Metamizole dosing. Performed By: #### 2 524-7 #### JUANITO PERES ([id number]) [facility] ([facility]) [facility] [place] [address] Lactate [Moles/Vol]on 2023 Interpretation and review of laboratory results Normal [facility] Venipuncture immediately after or during the administration of Metamizole may lead to falsely low results. Testing should be performed immediately prior to Metamizole dosing. [facility] Interpretation and review of laboratory results Abnormal [facility] Venipuncture immediately after or during the administration of Metamizole may lead to falsely low results. Testing should be performed immediately prior to Metamizole dosing. [facility] Lipaseon 04-18-2024 Lipase [Catalytic activity/Vol] 32 U/L 9 - 82 U/L [facility] Lipase [Catalytic activity/V ol]on 04-18-2024 Venipuncture immediately after or during the administration of Metamizole may lead to falsely low results. Testing should be performed immediately prior to Metamizole dosing. [facility] Magnesiumon 04-18-2024 Magnesium [Mass/Vol] 2.50 mg/dL High 1.60 - 2.40 mg/dL [facility] Magnesium [Mass/Vol] 2.50 mg/dL High 1.60-2.40 [facility] Comment on above: Performed By: #### 1 9123-9 #### JUANITO PERES ([id number]) [facility] ([facility]) [address] [place] [address] No Panel Informationon 04-18 [facility] Interpretation and review of laboratory results Abnormal [facility] Interpretation and review of laboratory results Normal [facility] Interpretation and review of laboratory results Abnormal [facility] Interpretation and review of laboratory results Normal [facility] Interpretation and review of laboratory results Abnormal [facility] OsmolalityOrdered By: Abelardo Jacobo on 04-18-2024 Osmolality [Osmolality] 393 mosm/kg High [facility] Osmolalityon 04-18-2024 Osmolality (U) [Osmolality] 400 mosm/kg Normal 200-1200 [facility] Comment on above: Performed By: #### 5 7021-8 #### JUANITO PERES ([id number]) [facility] ([facility]) [address] [place] [address] Osmolality [Osmolality] 393 mosm/kg High 280-300 [facility] Comment on above: Performed By: #### 5 3315-8 #### JUANITO PERES ([id number]) [facility] ([facility]) [address] [place] [address] Osmolality [Osmolality]Order ed By: Abelardo Jacobo on 04-18-2024 Interpretation and review of laboratory results Abnormal [facility] SARS coronavirus 2 RNAon SARS-CoV-2 (COVID-19) RNA ELGIN+probe Ql (Resp) Not detected Normal Not Detected [facility] Comment on above: Order Comment: This assay has received FDA Emergency Use Authorization (EUA) and is only authorized for the duration of time that circumstances exist to justify the authorization of the emergency use of in vitro diagnostic tests for the detection of SARS-CoV-2 virus and/or diagnosis of COVID-19 infection under section 564(b)(1) of the Act, 21 U.S.C. 360bbb-3(b)(1). This assay is an in vitro diagnostic nucleic acid amplification test for the qualitative detection of SARS-CoV-2 from nasopharyngeal specimens and has been validated for use at [facility]. Negative results do not preclude COVID-19 infections and should not be used as the sole basis for diagnosis, treatment, or other management decisions. Performed By: #### 9 4500-6 #### JUANITO PERES ([id number]) [facility] ([facility]) [address] [place] [address] 78769 SARS-CoV-2 (COVID-19) RNA NA A+probe Ql (Resp)on 04-18-2024 This assay has recei john FDA Emergency Use Authorization (EUA) and is only authorized for the duration of time that circumstances exist to justify the authorization of the emergency use of in vitro diagnostic tests for the detection of SARS-CoV-2 virus and/or diagnosis of COVID-19 infection under section 564(b)(1) of the Act, 21 U.S.C. 360bbb-3(b)(1). This assay is an in vitro diagnostic nucleic acid amplification test for the qualitative detection of SARS-CoV-2 from nasopharyngeal specimens and has been validated for use at [facility]. Negative results do not preclude COVID-19 infections and should not be used as the sole basis for diagnosis, treatment, or other management decisions. [facility] Sars-CoV-2 PCRon 04-18-2024 SARS-CoV-2 (COVID-19) RNA ELGIN+probe Ql (Resp) Not detected Not Detected [facility] Sodiumon 04-18-2024 Sodium (U) [Moles/Vol] 91 mmol/L Normal [facility] Comment on above: Performed By: #### 5 7021-8 #### JUANITO PERES ([id number]) [facility] ([facility]) [address] [place] [address] 99251 Sodium (U) [Moles/Vol]on Creatinine (U) [Mass/Vol] 17.0 mg/dL Low 20.0-320.0 [facility] Comment on above: Performed By: #### 5 7021-8 #### JUANITO PERES ([id number]) [facility] ([facility]) [address] [place] [address] 73452 Sodium/Creatinine (U) [Ratio] 535 mmol/g Creat Normal Not established. [facility] Comment on above: Performed By: #### 5 7021-8 #### JUANITO PERES ([id number]) [facility] ([facility]) [address] [place] [address] 49570 TSHon 04-18-2024 TSH Qn 2.13 m[IU]/L [facility] TSH Qnon 04-18-2024 Interpretation and review of laboratory results Normal [facility] TSH testing is performed using different testing methodology at [facility] than at other [facility]. Direct result comparisons should only be made within the same method. [facility] Thyrotropinon 04-18-2024 TSH Qn 2.13 m[IU]/L Normal 0.44-3.98 [facility] Comment on above: Order Comment: TSH t esting is performed using different testing methodology at [facility] than at [facility]. Direct result comparisons should only be made within the same method. Performed By: #### 5 3315-8 #### JUANITO PERES ([id number]) [facility] ([facility]) [address] [place], [place] [id number] Triacylglycerol lipaseon Lipase [Catalytic activity/Vol] 32 U/L Normal 9-82 [facility] Comment on above: Order Comment: Venip uncture immediately after or during the administration of Metamizole may lead to falsely low results. Testing should be performed immediately prior to Metamizole dosing. Performed By: #### 5 3315-8 #### JUANITO PERES ([id number]) [facility] ([facility]) [address] [place] [address] 96447 Tropinin I.cardiac panel Hig h sensitivity methodon 04-18-2024 Interpretation and review of laboratory results Normal [facility] Less than 99th percentile of normal range cutoff- Female and children under 18 years old <14 ng/L; Male <21 ng/L: Negative Repeat testing should be performed if clinically indicated. Female and children under 18 years old 14-50 ng/L; Male 21-50 ng/L: Consistent with possible cardiac damage and possible increased clinical risk. Serial measurements may help to assess extent of myocardial damage. >50 ng/L: Consistent with cardiac damage, increased clinical risk and myocardial infarction. Serial measurements may help assess extent of myocardial damage. NOTE: Children less than 1 year old may have higher baseline troponin levels and results should be interpreted in conjunction with the overall clinical context. NOTE: Troponin I testing is performed using a different testing methodology at [facility] than at other [facility]. Direct result comparisons should only be made within the same method. [facility] Troponin I, High Sensitivity on 04-18-2024 Tropinin I.cardiac panel High sensitivity method 12 ng/L 0 - 13 ng/L [facility] Troponin I.cardiac panelon 0 04-18-2024 Tropinin I.cardiac panel High sensitivity method 12 ng/L Normal 0-13 [facility] Comment on above: Order Comment: Less than 99th percentile of normal range cutoff- Female and children under 18 years old <14 ng/L; Male <21 ng/L: Negative Repeat testing should be performed if clinically indicated. Female and children under 18 years old 14-50 ng/L; Male 21-50 ng/L: Consistent with possible cardiac damage and possible increased clinical risk. Serial measurements may help to assess extent of myocardial damage. >50 ng/L: Consistent with cardiac damage, increased clinical risk and myocardial infarction. Serial measurements may help assess extent of myocardial damage. NOTE: Children less than 1 year old may have higher baseline troponin levels and results should be interpreted in conjunction with the overall clinical context. NOTE: Troponin I testing is performed using a different testing methodology at [facility] than at other [facility]. Direct result comparisons should only be made within the same method. Performed By: #### 8 9577-1 #### SOLOMON JA ([id number]) [facility] ([facility]) [address] [place] [address] Urinalysis complete W Reflex Culture panel (U)on 04-18-2024 Appearance (U) Turbid Abnormal Clear [facility] Bilirubin (U) [Mass/Vol] Negative NEGATIVE [facility] Color (U) Light-Yellow Light-Yellow , Yellow, Dark-Yellow [facility] Glucose Auto test strip (U) [Mass/Vol] Normal Normal mg/dL [facility] Ketones (U) [Mass/Vol] Negative NEGAT ALAINA mg/dL [facility] Leukocyte esterase Auto test strip Ql (U) 250 Rogelio/ L Abnormal NEGATIVE [facility] Nitrite Auto test strip Ql (U) 2+ Abnormal NEGATIVE [facility] pH (U) 7.5 [pH] 5.0, 5.5, 6.0, 6.5, 7.0, 7.5, 8.0 [facility] Protein (U) [Mass/Vol] Negative NEGAT ALAINA, 10 (TRACE), 20 (TRACE) mg/dL [facility] RBC (U) [#/Vol] Negative NEGATIVE [facility] Specific gravity (U) [Rel density] 1.011 1.005 - 1.035 [facility] Urobilinogen (U) [Mass/Vol] Normal Normal mg/dL [facility] Appearance (U) Turbid Normal Clear [facility] Comment on above: Performed By: #### 5 3315-8 #### JUANITO PERES ([id number]) [facility] ([facility]) [address] [place] [address] Bilirubin (U) [Mass/Vol] Negative Normal NEGATIVE [facility] Comment on above: Performed By: #### 5 3315-8 #### JUANITO PERES ([id number]) [facility] ([facility]) [address] [place] [address] 61919 Color (U) Light-Yellow Normal Light-Yellow , Yellow, Dark-Yellow [facility] Comment on above: Performed By: #### 5 3315-8 #### JUANITO PERES ([id number]) [facility] ([facility]) [address] [place] [address] 17320 Glucose Auto test strip (U) [Mass/Vol] Normal Normal Normal [facility] Comment on above: Performed By: #### 5 3315-8 #### JUANITO PERES ([id number]) [facility] ([facility]) [address] [place] [address] 57151 Ketones (U) [Mass/Vol] Negative Normal NEGATIVE Un [facility] Comment on above: Performed By: #### 5 5-8 #### JUANITO PERES ([id number]) [facility] ([facility]) [address] [place] [address] 56061 Leukocyte esterase Auto test strip Ql (U) 250 Rogelio/???L Abnormal NEGATIVE [facility] Comment on above: Performed By: #### 5 3314-8 #### JUANITO PERES ([id number]) [facility] ([facility]) [address] [place] [address] 84361 Nitrite Auto test strip Ql (U) 2+ Abnormal NEGATIVE [facility] Comment on above: Performed By: #### 5 3314-8 #### JUANITO PERES ([id number]) [facility] ([facility]) [address] [place] [address] 59204 pH (U) 7.5 [pH] Normal 5.0, 5.5, 6.0, 6.5, 7.0, 7.5, 8.0 [facility] Comment on above: Performed By: #### 5 3314-8 #### JUANITO PERES ([id number]) [facility] ([facility]) [address] [place] [address] 24238 Protein (U) [Mass/Vol] Negative Normal NEGAT ALAINA, 10 (TRACE), 20 (TRACE) [facility] Comment on above: Performed By: #### 5 5-8 #### JUANITO PERES ([id number]) [facility] ([facility]) [address] [place] [address] 69334 RBC (U) [#/Vol] Negative Normal NEGATIVE [facility] Comment on above: Performed By: #### 5 5-8 #### JUANITO PERES ([id number]) [facility] ([facility]) [address] [place] [address] 69523 Specific gravity (U) [Rel density] 1.011 Normal 1.005-1.035 [facility] Comment on above: Performed By: #### 5 3314-8 #### JUANITO PERES ([id number]) [facility] ([facility]) [address] [place] [address] 57080 Urobilinogen (U) [Mass/Vol] Normal Normal Normal [facility] Comment on above: Performed By: #### 5 3315-8 #### JUANITO PERES ([id number]) [facility] ([facility]) [address] [place] [address] Appearance (U) Turbid Abnormal Clear [facility] Bilirubin (U) [Mass/Vol] Negative NEGATIVE [facility] Color (U) Yellow Light-Yellow , Yellow, Dark-Yellow [facility] Glucose Auto test strip (U) [Mass/Vol] Normal Normal mg/dL [facility] Ketones (U) [Mass/Vol] Negative NEGAT ALAINA mg/dL [facility] Leukocyte esterase Auto test strip Ql (U) 250 Rogelio/ L Abnormal NEGATIVE [facility] Nitrite Auto test strip Ql (U) 2+ Abnormal NEGATIVE [facility] pH (U) 7.0 [pH] 5.0, 5.5, 6.0, 6.5, 7.0, 7.5, 8.0 [facility] Protein (U) [Mass/Vol] 10 (TRACE) NEGAT ALAINA, 10 (TRACE), 20 (TRACE) mg/dL [facility] RBC (U) [#/Vol] Negative NEGATIVE [facility] Specific gravity (U) [Rel density] 1.013 1.005 - 1.035 [facility] Urobilinogen (U) [Mass/Vol] Normal Normal mg/dL [facility] Appearance (U) Turbid Normal Clear [facility] Comment on above: Performed By: #### 5 8077-9 #### JUANITO PERES ([id number]) [facility] ([facility]) [address] [place] [address] 04657 Bilirubin (U) [Mass/Vol] Negative Normal NEGATIVE [facility] Comment on above: Performed By: #### 5 8077-9 #### JUANITO PERES ([id number]) [facility] ([facility]) [address] [place] [address] Color (U) Yellow Normal Light-Yellow , Yellow, Dark-Yellow [facility] Comment on above: Performed By: #### 5 8077-9 #### JUANITO PERES ([id number]) [facility] ([facility]) [address] [place] [address] 06357 Glucose Auto test strip (U) [Mass/Vol] Normal Normal Normal [facility] Comment on above: Performed By: #### 5 8077-9 #### JUANITO PERES ([id number]) [facility] ([facility]) [address] [place] [address] 31298 Ketones (U) [Mass/Vol] Negative Normal NEGATIVE [facility] on above: Performed By: #### 5 8077-9 #### JUANITO PERES ([id number]) [facility] ([facility]) [address] [place] [address] 75072 Leukocyte esterase Auto test strip Ql (U) 250 Rogelio/???L Abnormal NEGATIVE [facility] Comment on above: Performed By: #### 5 8077-9 #### JUANITO PERES ([id number]) [facility] ([facility]) [address] [place] [address] 42203 Nitrite Auto test strip Ql (U) 2+ Abnormal NEGATIVE [facility] Comment on above: Performed By: #### 5 8077-9 #### JUANITO PERES ([id number]) [facility] ([facility]) [address] [place] [address] 92302 pH (U) 7.0 [pH] Normal 5.0, 5.5, 6.0, 6.5, 7.0, 7.5, 8.0 [facility] Comment on above: Performed By: #### 5 8077-9 #### JUANITO PERES ([id number]) [facility] ([facility]) [address] [place] [address] 62881 Protein (U) [Mass/Vol] 10 (TRACE) Normal NEGAT ALAINA, 10 (TRACE), 20 (TRACE) [facility] Comment on above: Performed By: #### 5 8077-9 #### JUANITO PERES ([id number]) [facility] ([facility]) [address] [place] [address] RBC (U) [#/Vol] Negative Normal NEGATIVE [facility] Comment on above: Performed By: #### 5 8077-9 #### JUANITO PERES ([id number]) [facility] ([facility]) [address] [place] [address] Specific gravity (U) [Rel density] 1.013 Normal 1.005-1.035 [facility] Comment on above: Performed By: #### 5 8077-9 #### JUANITO PERES ([id number]) [facility] ([facility]) [address] [place] [address] Urobilinogen (U) [Mass/Vol] Normal Normal Normal [facility] Comment on above: Performed By: #### 5 8077-9 #### JUANITO PERES ([id number]) [facility] ([facility]) [address] [place] [address] Urinalysis microscopic panel Auto Ql (U)on 04-18-2024 Bacteria Auto (Urine sed) [#/Area] 2+ Abnormal NONE SEEN /HPF [facility] RBC Auto (Urine sed) [#/Area] 1-2 NONE, 1-2, 3-5 /HPF [facility] WBC Auto (Urine sed) [#/Area] 11-20 Abnormal 1-5, NONE /HPF [facility] Bacteria Auto (Urine sed) [#/Area] 2+ /HPF Abnormal NONE SEEN [facility] Comment on above: Performed By: #### 5 3315-8 #### JUANITO PERES ([id number]) [facility] ([facility]) [address] [place] [address] RBC Auto (Urine sed) [#/Area] 1-2 Normal NONE, 1-2, 3-5 [facility] Comment on above: Performed By: #### 5 3315-8 #### JUANITO PERES ([id number]) [facility] ([facility]) [address] [place] [address] WBC Auto (Urine sed) [#/Area] 11-20 Abnormal 1-5, NONE [facility] Comment on above: Performed By: #### 5 3315-8 #### JUANITO PERES ([id number]) [facility] ([facility]) [address] [place] [address] Bacteria Auto (Urine sed) [#/Area] 1+ Abnormal NONE SEEN /HPF [facility] Epithelial cells.squamous Auto (Urine sed) [#/Area] 1-9 (SPARSE) Reference range not established. /HPF [facility] RBC Auto (Urine sed) [#/Area] 1-2 NONE, 1-2, 3-5 /HPF [facility] WBC Auto (Urine sed) [#/Area] 11-20 Abnormal 1-5, NONE /HPF [facility] Bacteria Auto (Urine sed) [#/Area] 1+ /HPF Abnormal NONE SEEN [facility] Comment on above: Performed By: #### 5 5-8 #### JUANITO PERES ([id number]) [facility] ([facility]) [address] [place] [address] Epithelial cells.squamous Auto (Urine sed) [#/Area] 1-9 (SPARSE) Normal Reference range not established. [facility] Comment on above: Performed By: #### 5 3315-8 #### JUANITO PERES (47926) [facility] ([facility]) [address] [place] [address] RBC Auto (Urine sed) [#/Area] 1-2 Normal NONE, 1-2, 3-5 [facility] Comment on above: Performed By: #### 5 3315-8 #### JUANITO PERES ([id number]) [facility] ([facility]) [address] [place] [address] 10754 WBC Auto (Urine sed) [#/Area] 11-20 Abnormal 1-5, NONE [facility] Comment on above: Performed By: #### 5 3315-8 #### JUANITO PERES ([id number]) [facility] ([facility]) [address] [place] [address] XR CHEST 1 VIEWon 04-18-2024 XR CHEST 1 VIEW Interpreted By: Uriel Encarnacion, STUDY: XR CHEST 1 VIEW; 04/18/2024 9:23 am INDICATION: Signs/Symptoms:MENTAL STATUS CHANGE. COMPARISON: 02/10/2023. ACCESSION NUMBER(S): [id number] ORDERING CLINICIAN: LAZARO HANDY FINDINGS: CARDIOMEDIASTINAL SILHOUETTE: Patient is rotated to the left. Dense aortic calcifications are again seen. Cardiac silhouette is stable and not significantly enlarged. LUNGS: Inspiratory volume is low. No focal infiltrate. No definite pleural effusion. No pneumothorax is seen. ABDOMEN: No remarkable upper abdominal findings. BONES: Thoracic dextrocurvature may be partially exaggerated by positioning. Multilevel endplate spurring present in the spine. Degenerative changes of the shoulders are partially visualized. IMPRESSION: 1. No evidence of acute cardiopulmonary process. MACRO: None. Signed by: Uriel Encarnacion 04/18/2024 10:03 AM Dictation workstation: [id number] [facility] XR Chest Single viewon 04-18 1. No evidence of ac hughes cardiopulmonary process. MACRO: None. Signed by: Uriel Encarnacion 04/18/2024 10:03 AM Dictation workstation: [id number] MMODAL Interpreted By: Uriel Encarnacion, STUDY: XR CHEST 1 VIEW; 04/18/2024 9:23 am INDICATION: Signs/Symptoms:MENTAL STATUS CHANGE. COMPARISON: 02/10/2023. ACCESSION NUMBER(S): [id number] ORDERING CLINICIAN: LAZARO HANDY FINDINGS: CARDIOMEDIASTINAL SILHOUETTE: Patient is rotated to the left. Dense aortic calcifications are again seen. Cardiac silhouette is stable and not significantly enlarged. LUNGS: Inspiratory volume is low. No focal infiltrate. No definite pleural effusion. No pneumothorax is seen. ABDOMEN: No remarkable upper abdominal findings. BONES: Thoracic dextrocurvature may be partially exaggerated by positioning. Multilevel endplate spurring present in the spine. Degenerative changes of the shoulders are partially visualized. [facility] Uriel Encarnacion MD - 04/18/2024 Interpreted By: Uriel Encarnacion, STUDY: XR CHEST 1 VIEW; 04/18/2024 9:23 am INDICATION: Signs/Symptoms:MENTAL STATUS CHANGE. COMPARISON: 02/10/2023. ACCESSION NUMBER(S): [id number] ORDERING CLINICIAN: LAZARO HANDY FINDINGS: CARDIOMEDIASTINAL SILHOUETTE: Patient is rotated to the left. Dense aortic calcifications are again seen. Cardiac silhouette is stable and not significantly enlarged. LUNGS: Inspiratory volume is low. No focal infiltrate. No definite pleural effusion. No pneumothorax is seen. ABDOMEN: No remarkable upper abdominal findings. BONES: Thoracic dextrocurvature may be partially exaggerated by positioning. Multilevel endplate spurring present in the spine. Degenerative changes of the shoulders are partially visualized. IMPRESSION: 1. No evidence of acute cardiopulmonary process. MACRO: None. Signed by: Uriel Encarnacion 04/18/2024 10:03 AM Dictation workstation: [id number] [facility] Work Phone: Radiology Study observation (narrative) [facility] Work Phone: XR Chest Single viewOrdered By: Uriel Encarnacion on 04-18-2024 [facility] Work Phone: 1,25-dihydroxyvitamin D3 [Ma ss/Vol]on 03-21-2024 1,25-dihydroxyvitamin D [Mass/Vol] 15.8 pg/mL Low 19.9-79.3 [facility] Comment on above: Result Comment: INTE RPRETIVE INFORMATION: Vitamin D, 1,25-Dihydroxy This test is primarily indicated during patient evaluation for hypercalcemia and renal failure. A normal result does not rule out Vitamin D deficiency. The recommended test for diagnosing Vitamin D deficiency is Vitamin D 25-hydroxy. Performed By: [facility] [employer] [address] [place] [address] Water Pump Installer: Gabriele Sanderson MD, PhD CLIA Number: [id number] Performed By: #### 1 6362-6 #### SOLOMON JA ([id number]) [facility] ([facility]) [address] [place] [address] 03425 CBC W Auto Differential pane l (Bld)on 03-21-2024 Basophils (Bld) [#/Vol] 0.04 x10*3/uL Normal 0.00-0.10 [facility] Comment on above: Performed By: #### 5 7021-8 #### JUANITO PERES ([id number]) [facility] ([facility]) [address] [place] [address] 10598 Basophils/100 WBC (Bld) 0.4 % Normal 0.0-2.0 [facility] Comment on above: Performed By: #### 5 7021-8 #### JUANITO PERES ([id number]) [facility] ([facility]) [address] [place] [address] 63974 Eosinophils (Bld) [#/Vol] 0.31 x10*3/uL Normal 0.00-0.40 [facility] Comment on above: Performed By: #### 7021-8 #### JUANITO PERES ([id number]) [facility] ([facility]) [address] [place] [address] 36134 Eosinophils/100 WBC (Bld) 3.1 % Normal 0.0-6.0 [facility] Comment on above: Performed By: #### 7021-8 #### JUANITO PERES ([id number]) [facility] ([facility]) [address] [place] [address] 42734 Erythrocyte distribution width (RBC) [Ratio] 13.5 % Normal 11.5-14.5 [facility] Comment on above: Performed By: #### 7021-8 #### JUANITO PERES ([id number]) [facility] ([facility]) [address] [place] [address] 81121 Hematocrit (Bld) [Volume fraction] 35.6 % Low 36.0-46.0 [facility] Comment on above: Performed By: #### 5 7021-8 #### JUANITO PERES ([id number]) [facility] ([facility]) [address] [place] [address] 37775 Hemoglobin (Bld) [Mass/Vol] 11.0 g/dL Low 12.0-16.0 [facility] Comment on above: Performed By: #### 5 7021-8 #### JUANITO PERES ([id number]) [facility] ([facility]) [address] [place] [address] 24573 Immature granulocytes (Bld) [#/Vol] 0.03 x10*3/uL Normal 0.00-0.50 [facility] Comment on above: Performed By: #### 5 7021-8 #### JUANITO PERES ([id number]) [facility] ([facility]) [address] [place] [address] 86503 Immature granulocytes/100 WBC (Bld) 0.3 % Normal 0.0-0.9 [facility] Comment on above: Result Comment: Arti ture Granulocyte Count (IG) includes promyelocytes, myelocytes and metamyelocytes but does not include bands. Percent differential counts (%) should be interpreted in the context of the absolute cell counts (cells/UL). Performed By: #### 5 7021-8 #### JUANITO PERES ([id number]) [facility] ([facility]) [address] [place] [address] 18500 Lymphocytes (Bld) [#/Vol] 2.45 x10*3/uL Normal 0.80-3.00 [facility] Comment on above: Performed By: #### 5 7021-8 #### JUANITO PERES (28111) [facility] ([facility]) [address] [place] [address] 49417 Lymphocytes/100 WBC (Bld) 24.4 % Normal 13.0-44.0 [facility] Comment on above: Performed By: #### 5 7021-8 #### JUANITO PERES ([id number]) [facility] ([facility]) [address] [place] [address] 91411 MCH (RBC) [Entitic mass] 31.4 pg Normal 26.0-34.0 [facility] Comment on above: Performed By: #### 5 7021-8 #### JUANITO PERES (32385) [facility] ([facility]) [address] [place] [address] 23068 MCHC (RBC) [Mass/Vol] 30.9 g/dL Low 32.0-36.0 [facility] Comment on above: Performed By: #### 5 7021-8 #### JUANITO PERES (39552) [facility] ([facility]) [facility] [place] [address] MCV (RBC) [Entitic vol] 102 fL High 80-100 [facility] Comment on above: Performed By: #### 5 7021-8 #### JUANITO PERES ([id number]) [facility] ([facility]) [address] [place] [address] 84764 Monocytes (Bld) [#/Vol] 0.56 x10*3/uL Normal 0.05-0.80 [facility] Comment on above: Performed By: #### 5 7021-8 #### JUANITO PERES ([id number]) [facility] ([facility]) [address] [place] [address] 70065 Monocytes/100 WBC (Bld) 5.6 % Normal 2.0-10.0 [facility] Comment on above: Performed By: #### 5 7021-8 #### JUANITO PERES (56976) [facility] ([facility]) [address] [place] [address] 84043 Neutrophils (Bld) [#/Vol] 6.67 x10*3/uL High 1.60-5.50 [facility] Comment on above: Result Comment: Perc ent differential counts (%) should be interpreted in the context of the absolute cell counts (cells/uL). Performed By: #### 5 7021-8 #### JUANITO PERES (87627) [facility] ([facility]) [address] [place] [address] 83724 Neutrophils/100 WBC (Bld) 66.2 % Normal 40.0-80.0 [facility] Comment on above: Performed By: #### 5 7021-8 #### JUANITO PERES (42909) [facility] ([facility]) [address] [place] [address] 91876 Nucleated RBC/100 WBC (Bld) [Ratio] 0.0 /100 WBCs Normal 0.0-0.0 [facility] Comment on above: Performed By: #### 5 7021-8 #### JUANITO PERES (56585) [facility] ([facility]) [address] [place] [address] 46796 Platelets (Bld) [#/Vol] 325 x10*3/uL Normal 150-450 [facility] Comment on above: Performed By: #### 5 7021-8 #### JUANITO PERES (32814) [facility] ([facility]) [address] [place] [address] RBC (Bld) [#/Vol] 3.50 x10*6/uL Low 4.00-5.20 [facility] Comment on above: Performed By: #### 5 7021-8 #### JUANITO PERES ([id number]) [facility] ([facility]) [address] [place] [address] WBC (Bld) [#/Vol] 10.1 x10*3/uL Normal 4.4-11.3 [facility] Comment on above: Performed By: #### 5 7021-8 #### JUANITO PERES (44101) [facility] ([facility]) [address] [place] [address] Cobalaminson 03-21-2024 Cobalamin (Vitamin B12) [Mass/Vol] 1261 pg/mL High 211-911 [facility] Comment on above: Performed By: #### 1 6362-6 #### JUANITO PERES ([id number]) [facility] ([facility]) [address] [place] [address] Comprehensive metabolic 2000 panelon 03-21-2024 Albumin BCP dye [Mass/Vol] 3.9 g/dL Normal 3.4-5.0 [facility] Comment on above: Performed By: #### 1 6362-6 #### JUANITO PERES ([id number]) [facility] ([facility]) [address] [place] [address] ALP [Catalytic activity/Vol] 86 U/L Normal 33-136 [facility] Comment on above: Performed By: #### 1 6362-6 #### JUANITO PERES ([id number]) [facility] ([facility]) [address] [place] [address] ALT With P-5'-P [Catalytic activity/Vol] 15 U/L Normal 7-45 [facility] Comment on above: Result Comment: Stephanie ents treated with Sulfasalazine may generate falsely decreased results for ALT. Performed By: #### 1 6362-6 #### JUANITO PERES ([id number]) [facility] ([facility]) [address] [place] [address] Anion gap [Moles/Vol] 13 mmol/L Normal 10-20 [facility] Comment on above: Performed By: #### 1 6362-6 #### JUANITO PERES ([id number]) [facility] ([facility]) [address] [place] [address] AST With P-5'-P [Catalytic activity/Vol] 16 U/L Normal 9-39 [facility] Comment on above: Performed By: #### 1 6362-6 #### JUANITO PERES (85829) [facility] ([facility]) [address] [place] [address] Bilirubin [Mass/Vol] 0.2 mg/dL Normal 0.0-1.2 [facility] Comment on above: Performed By: #### 1 6362-6 #### JUANITO PERES (58158) [facility] ([facility]) [address] [place] [address] Calcium [Mass/Vol] 10.5 mg/dL High 8.6-10.3 [facility] Comment on above: Performed By: #### 1 6362-6 #### JUANITO PERES (28104) [facility] ([facility]) [address] [place] [address] Chloride [Moles/Vol] 101 mmol/L Normal 98-107 [facility] Comment on above: Performed By: #### 1 6362-6 #### JUANITO PERES ([id number]) [facility] ([facility]) [address] [place] [address] CO2 [Moles/Vol] 31 mmol/L Normal 21-32 [facility] Comment on above: Performed By: #### 1 6362-6 #### JUANITO PERES ([id number]) [facility] ([facility]) [facility] [place] [address] Creatinine [Mass/Vol] 0.79 mg/dL Normal 0.50-1.05 [facility] Comment on above: Performed By: #### 1 6362-6 #### JUANITO PERES (95821) [facility] ([facility]) [address] [place] [address] Glomerular filtration rate/1.73 sq M.predicted 76 mL/min/1.73m*2 Normal >60 [facility] Comment on above: Result Comment: Calc ulations of estimated GFR are performed using the 2020 CKD-EPI Study Refit equation without the race variable for the IDMS-Traceable creatinine methods. https://jasn.asnjournals.org/content/early/ASN.2020 583155 Performed By: #### 1 6362-6 #### JUANITO PERES (85344) [facility] ([facility]) [address] [place] [address] Glucose [Mass/Vol] 106 mg/dL High 74-99 [facility] Comment on above: Performed By: #### 1 6362-6 #### JUANITO PERES ([id number]) [facility] ([facility]) [address] [place] [address] Potassium [Moles/Vol] 4.3 mmol/L Normal 3.5-5.3 [facility] Comment on above: Performed By: #### 1 6362-6 #### JUANITO PERES (39472) [facility] ([facility]) [address] [place] [address] Protein [Mass/Vol] 6.5 g/dL Normal 6.4-8.2 [facility] Comment on above: Performed By: #### 1 6362-6 #### JUANITO PERES ([id number]) [facility] ([facility]) [address] [place] [address] Sodium [Moles/Vol] 141 mmol/L Normal 136-145 [facility] Comment on above: Performed By: #### 1 6362-6 #### JUANITO PERES ([id number]) [facility] ([facility]) [address] [place] [address] Urea nitrogen [Mass/Vol] 33 mg/dL High 6-23 [facility] Comment on above: Performed By: #### 1 6362-6 #### JUANITO PERES (59701) [facility] ([facility]) [address] [place] [address] HbA1c (Bld) [Mass fraction]o n 03-21-2024 Average glucose Estimated from glycated hemoglobin (Bld) [Mass/Vol] 108 mg/dL Normal Not Established [facility] Comment on above: Order Comment: Diagn osis of Qzpmkfqq-BnoitdMhg-Xnhopyzs: < or = 5.6%Increased risk for developing diabetes: 5.7-6.4%Diagnostic of diabetes: > or = 6.5% Performed By: #### 1 6362-6 #### JUANITO PERES ([id number]) [facility] ([facility]) [address] [place] [address] Hemoglobin A1c/Hemoglobin.to sterling 03-21-2024 HbA1c (Bld) [Mass fraction] 5.4 % Normal see below [facility] Comment on above: Order Comment: Diagn osis of Hirhnljb-HflsfhIob-Siwdqshc: < or = 5.6%Increased risk for developing diabetes: 5.7-6.4%Diagnostic of diabetes: > or = 6.5% Performed By: #### 1 6362-6 #### JUANITO PERES (79800) [facility] ([facility]) [address] [place] [address]349 Lipid 1996 panelon 4 Cholesterol [Mass/Vol] 153 mg/dL Normal 0-199 [facility] Comment on above: Result Comment: Age Desirable Borderline High High 0-19 Y 0 - 169 170 - 199 >/= 200 20-24 Y 0 - 189 190 - 224 >/= 225 >24 Y 0 - 199 200 - 239 >/= 240 All ranges are based on fasting samples. Specific therapeutic targets will vary based on patient-specific cardiac risk. Pediatric guidelines reference:Pediatrics 2011, 128(S5).Adult guidelines reference: NCEP ATPIII Guidelines,TIP 2001, 258:2486-97 Venipuncture immediately after or during the administration of Metamizole may lead to falsely low results. Testing should be performed immediately prior to Metamizole dosing. Performed By: #### 1 6362-6 #### JUANITO PERES (05236) [facility] ([facility]) [address] [place] [address]1168 Cholesterol in HDL [Mass/Vol] 51.0 mg/dL Normal [facility] Comment on above: Result Comment: Age Very Low Low Normal High 0-19 Y < 35 < 40 40-45 ---- 20-24 Y ---- < 40 >45 ---- >24 Y ---- < 40 40-60 >60 Performed By: #### 1 6362-6 #### JUANITO PERES (25324) [facility] ([facility]) [address] [place] [address] Cholesterol in LDL [Mass/Vol] 76 mg/dL Normal <=99 [facility] Comment on above: Result Comment: Near Borderline AGE Desirable Optimal High High Very High 0-19 Y 0 - 109 --- 110-129 >/= 130 ---- 20-24 Y 0 - 119 --- 120-159 >/= 160 ---- >24 Y 0 - 99 100-129 130-159 160-189 >/=190 Performed By: #### 1 6362-6 #### JUANITO PERES ([id number]) [facility] ([facility]) [address] [place] [address]265 Cholesterol in VLDL [Mass/Vol] 26 mg/dL Normal 0-40 [facility] Comment on above: Performed By: #### 1 6362-6 #### JUANITO PERES (80122) [facility] ([facility]) [facility] [place] [address] CHOLESTEROL/HDL RATIO 3.0 Normal [facility] Comment on above: Result Comment: Ref Values Desirable < 3.4 High Risk > 5.0 Performed By: #### 1 6362-6 #### JUANITO PERES (13807) [facility] ([facility]) [address] [place] [address] NON HDL CHOLESTEROL 102 mg/dL Normal 0-149 [facility] Comment on above: Result Comment: Age Desirable Borderline High High Very High 0-19 Y 0 - 119 120 - 144 >/= 145 >/= 160 20-24 Y 0 - 149 150 - 189 >/= 190 ---- >24 Y 30 mg/dL above LDL Cholesterol goal Performed By: #### 1 6362-6 #### JUANITO PERES (23860) [facility] ([facility]) [address] [place] [address] Triglyceride [Mass/Vol] 132 mg/dL Normal 0-149 [facility] Comment on above: Result Comment: Age Desirable Borderline High High Very High 0 D-90 D 19 - 174 ---- ---- ---- 91 D- 9 Y 0 - 74 75 - 99 >/= 100 ---- 10-19 Y 0 - 89 90 - 129 >/= 130 ---- 20-24 Y 0 - 114 115 - 149 >/= 150 ---- >24 Y 0 - 149 150 - 199 200- 499 >/= 500 Venipuncture immediately after or during the administration of Metamizole may lead to falsely low results. Testing should be performed immediately prior to Metamizole dosing. Performed By: #### 1 6362-6 #### JUANITO PERES ([id number]) [facility] ([facility]) [address] [place], [place] [id number] Thyrotropinon 03-21-2024 TSH Qn 1.91 m[IU]/L Normal 0.44-3.98 [facility] Comment on above: Order Comment: TSH t esting is performed using different testing methodology at [facility] than at other [facility]. Direct result comparisons should only be made within the same method. Performed By: #### 3 016-3 #### JUANITO PERES (80198) [facility] ([facility]) [address] [place] [address] ED Prov Noteon 08-09-2024 ED Prov Note ED PROVIDER NOTE [facility] NAME: Mik Shelton AGE: 78 y.o. 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 Patient was being assessed for routine podiatry evaluation there and her systolic blood pressure was measured as low as 70 therefore she was referred to the ER for further evaluation. Patient's caregiver notes that the patient is at her baseline otherwise. She was smiling and normally interactive. No appetite changes. No history of fevers. No vomiting. No change in affect. Past Medical History: Diagnosis Date Cerebral palsy (HCC) Hypothyroidism Osteoporosis Seizure disorder (HCC) 2017 Type 2 diabetes mellitus (HCC) Past Surgical History: Procedure Laterality Date CT COLONOSCOPY 10/05/2023 CT COLONOSCOPY History reviewed. No pertinent family history. Social History Socioeconomic History Marital status: Single Tobacco Use Smoking status: Never Smokeless tobacco: Never Substance and Sexual Activity Alcohol use: No Drug use: No Previous Medications Medication Sig acetaminophen (TYLENOL) 325 MG tablet Take 1 (one) tablet (325 mg total) by mouth every 4 (four) hours as needed . acetaminophen (TYLENOL) 650 MG suppository Insert into the rectum. alendronate (FOSAMAX) 70 mg/75 mL solution Take 75 mL (70 mg total) by mouth every 7 days Take in the morning with a full glass of water, on an empty stomach, and do not take anything else by mouth or lie down for the next 30 min. . ARIPiprazole (ABILIFY) 20 MG tablet Take 0.5 (one-half) tablet (10 mg total) by mouth daily . bisacodyl (DULCOLAX) 10 mg suppository Insert 1 (one) suppository (10 mg total) into the rectum daily as needed . calcium carbonate (OS-EMEKA) 600 mg calcium (1,500 mg) tablet calcium-vitamin D (OS-EMEKA +D) 500 mg(1,250mg) -200 unit per tablet take by Oral route. carBAMazepine (TEGretol) 100 mg chewable tablet Chew and Swallow 2 (two) times a day. cholecalciferol, vitamin D3, 1,000 unit tablet Take 1 (one) tablet (1,000 Units total) by mouth daily . cyanocobalamin (B-12) 1000 MCG tablet Take 1 (one) tablet (1,000 mcg total) by mouth daily . diazepam (VALIUM) 2 MG tablet Take 0.5 tablet by oral route every morning and a full tablet every evening. docusate sodium (COLACE) 100 MG capsule Take 1 (one) capsule (100 mg total) by mouth 2 (two) times a day . guaiFENesin (ROBITUSSIN) 100 mg/5 mL syrup Take 5 mL (100 mg total) by mouth every 4 (four) hours . hydrOXYzine (ATARAX) 50 MG tablet Take 0.5 (one-half) tablet (25 mg total) by mouth nightly . insulin lispro (HumaLOG) 100 unit/mL injection Use as directed, approx 10 units per day. (Patient taking differently: Use as directed, approx 10 units per day 2 units at breakfast and dinner .) lamoTRIgine (LaMICtal) 25 MG TChD levothyroxine (SYNTHROID, LEVOTHROID) 50 MCG tablet Take 1 (one) tablet (50 mcg total) by mouth daily . lisinopril (PRINIVIL,ZESTRIL) 30 MG tablet 1 (one) tablet (30 mg total) daily . lovastatin (MEVACOR) 20 MG tablet Take 1 (one) tablet (20 mg total) by mouth nightly . melatonin 10 mg Tab Take 10 mg by mouth daily . metFORMIN (GLUCOPHAGE) 500 MG tablet Take 1 (one) tablet (500 mg total) by mouth daily with breakfast . multivitamin (THERAGRAN) per tablet take 1 tablet by oral route every day with food. Allergies Allergen Reactions Amoxicillin Unknown Ampicillin Unknown Penicillin Unknown Penicillins Review of Systems Constitutional: Negative for fever. Respiratory: Negative for cough and shortness of breath. Gastrointestinal: Negative for vomiting. Genitourinary: Negative for difficulty urinating. Skin: Negative for rash. Neurological: Negative for headaches. Patient Vitals for the past 24 hrs: BP Temp Temp src Pulse Resp SpO2 Height Weight 03/18/24 1133 -- 97 degrees F (36.1 degrees C) Temporal -- -- -- -- -- 03/18/24 1131 101/84 -- -- -- -- -- -- -- 03/18/24 1116 (!) 117/91 (!) 96.6 degrees F (35.9 degrees C) Temporal 98 18 95 % 5' 1 48.5 kg (107 lb) Physical Exam Vitals and nursing note reviewed. Constitutional: Appearance: She is well-developed. Comments: Patient is sitting in her wheelchair. She makes eye contact and looks around the room appropriately. She shows no sign of distress. HENT: Head: Normocephalic and atraumatic. Musculoskeletal: General: Normal range of motion. Pulmonary: Effort: Pulmonary effort is normal. Breath sounds: Normal breath sounds. Abdominal: Palpations: Abdomen is soft. Tenderness: There is no abdominal tenderness. Skin: General: Skin is warm and dry. Neurological: Mental Status: Mental status is at baseline. (more content not included)... Normal [facility] History AND Physic karoline 03-16-2024 Wound Ctr History & Physical [facility] [address] [place] [address] H P Exam - Wound Care 03/16/24 1151 MR#: [id number] Acct: [id number] Name: MIK SHELTON Rep #: [id number] : 1945 78 From: Nayeli Richards NP [employer] PCP: Dr. Shanda Huizar, DO Status:REG RCR Location: History of Present Illness Date of Service: 03/16/24 Chief Complaint: Follow-up on left ischium History of Wound: 78-year-old white female nonverbal with CP, chronically gets open areas on her left ischium and left sacral back area. At this point they are closed but they have been using Neosporin ointment and Telfa pads on her. She lives in [place] with 5 other residents. Skin is very supple and she is in good condition. They states she does not eat well but is taking supplements at this time. These open areas happen on and off and they just need some direction how to take care of it. [facility] Medical History Flu vaccine need Osteoporosis Health care maintenance Weight loss, non-intentional Decubitus skin ulcer Hyponatremia Hypothyroidism history of chemical labotomy Anxiety Profound intellectual disabilities Unspecified mood [affective] disorder Cerebral palsy Vitamin deficiency Vision problems Thyroid disease Seizures Hypertension H/O emotional problems Diabetes Cataracts, bilateral Home Medications ???Medication ???Instructions ???Recorded ???Last Taken ???Type acetaminophen 325 mg tablet 650 mg PO Q6H PRN fever or pain 12/21/18 Unknown History bisacodyl 10 mg rectal suppository 10 mg ID DAILY PRN constipation 12/21/18 Unknown History pen needle, diabetic 31 gauge x #200 ea 08/05/21 Unknown Rx 10/23 (Comfort EZ Pen [place]) metformin 500 mg tablet,extended 500 mg PO QPM #90 tabs 01/07/22 Unknown Rx release 24hr (osmotic) multivitamin 1 tab PO DAILY #90 tabs 01/17/22 Unknown Rx lisinopril 30 mg tablet See Rx Instructions .Route 04/08/22 Unknown Rx .COMPLEX #30 tabs lovastatin 20 mg tablet See Rx Instructions .Route 04/08/22 Unknown Rx .COMPLEX #30 tabs levothyroxine 50 mcg capsule 50 mcg PO DAILY #90 caps 07/14/22 Unknown Rx mecobalamin (vitamin B12) 1,000 1,000 mcg sublingual DAILY #90 tabs 07/14/22 Unknown Rx mcg disintegrating tablet,sublingual aripiprazole 10 mg tablet 10 mg PO QHS #90 tabs 08/05/22 Unknown Rx alendronate 70 mg tablet (Fosamax) 70 mg PO QWEEK #14 tabs 09/02/22 Unknown Rx docusate sodium 100 mg capsule 100 mg PO DAILY #90 caps 09/03/22 Unknown Rx (Colace) amino acids-protein hydrolysate 15 ml PO DAILY 02/22/24 Unknown History gram-72 kcal/30 mL oral liquid calcium carb-vit D3-minerals 600 1 tab PO BID 02/22/24 Unknown History mg calcium-400 unit tablet carbamazepine 100 mg chewable 100 mg PO DAILY #30 tabs 02/22/24 Unknown Rx tablet diazepam 2 mg tablet 1 mg PO QDAY agitation 02/22/24 Unknown History ergocalciferol (vitamin D2) 1,250 1,250 mcg PO 2XW #8 caps 02/22/24 Unknown Rx mcg (50,000 unit) capsule guaifenesin 100 mg/5 mL oral liquid 200 mg PO Q4H PRN congestion 02/22/24 Unknown History lamotrigine 25 mg disintegrating 50 mg (2 x 25 mg) PO BID #120 tabs 02/22/24 Unknown Rx tablet melatonin 10 mg capsule 10 mg PO HS 02/22/24 Unknown History Allergy/AdvReac Type Severity Reaction Status Date / Time Penicillins Allergy Unknown unknown Verified 03/16/24 08:31 ampicillin Allergy Unknown Verified 03/16/24 08:31 Family History Other Family history unknown Surgical History No history of previous surgery Social History Smoking Status: Never smoker second hand exposure: No alcohol intake: never substance use type: does not use what type of physical activity do you participate in: none seatbelt use: always ROS Constitutional Constitutional: Reports systems reviewed and no addt'l complaints, except as documented Eyes Eyes: Reports systems reviewed and no addt'l complaints, except as documented ENT HEENT: Reports systems reviewed and no addt'l complaints, except as documented Cardiovascular Cardiovascular: Reports systems reviewed and no addt'l complaints, except as documented Respiratory/Chest Respiratory/Chest: Reports systems reviewed and no addt'l complaints, except as documented Gastrointestinal Gastrointestinal: Reports systems reviewed and no addt'l complaints, except as documented Genitourinary Genitourinary: Reports systems reviewed and no addt'l complaints, except as documented Musculoskeletal Musculoskeletal: Reports systems reviewed and no addt'l complaints, except as documented Integumentary Integumentary: Reports (more content not included)... Normal [facility] Neurology Visit Reporton Neurology Visit Report [facility] [address] [place] [address] OFFICE VISIT Date of Service: 02/22/24 MR#: [id number] Acct: [id number] Name: MIK SHELTON Rep #: [id number] : 1945 Provider: Dr. Cedrick del real MD Age/Sex: 78/F Location: [facility] Status: Signed Intake Vital Signs 08/13/23 11:31 02/22/24 11:34 Height 5 ft 2 in 5 ft 2 in Weight: 127 lb BMI 23.2 BP 132/72 H 100/60 Blood Pressure Location Rt brachial Rt brachial Position Sitting Sitting Respiration 17 16 Pulse 75 84 Pulse Source Monitor Monitor Temp 97.7 F L 97.8 F Temp Source Temporal Temporal Pulse Oximetry (%) 97 94 Oxygen Delivery Method room air room air Intake Visit Reasons: 6 M FU Chief Complaint: [employer] Director Required: No Accompanied by: Caregiver Allergies Penicillins Allergy (Unknown, Verified 02/22/24 11:40) unknown ampicillin Allergy (Verified 02/22/24 11:40) Unknown Medications ???Medication ???Instructions ???Recorded ???Confirmed ???Type acetaminophen 325 mg tablet 650 mg PO Q6H PRN 12/21/18 02/22/24 History bisacodyl 10 mg rectal suppository 10 mg ID DAILY PRN 12/21/18 02/22/24 History pen needle, diabetic 31 gauge x #200 ea 08/05/21 08/13/23 Rx 3/16 (Comfort EZ Pen [place]) metformin 500 mg tablet,extended 500 mg PO QPM #90 tabs 01/07/22 02/22/24 Rx release 24hr (osmotic) multivitamin 1 tab PO DAILY #90 tabs 01/17/22 02/22/24 Rx lisinopril 30 mg tablet See Rx Instructions .Route 04/08/22 02/22/24 Rx .COMPLEX #30 tabs lovastatin 20 mg tablet See Rx Instructions .Route 04/08/22 02/22/24 Rx .COMPLEX #30 tabs levothyroxine 50 mcg capsule 50 mcg PO DAILY #90 caps 07/14/22 02/22/24 Rx mecobalamin (vitamin B12) 1,000 1,000 mcg sublingual DAILY #90 tabs 07/14/22 02/22/24 Rx mcg disintegrating tablet,sublingual aripiprazole 10 mg tablet 10 mg PO QHS #90 tabs 08/05/22 02/22/24 Rx alendronate 70 mg tablet (Fosamax) 70 mg PO QWEEK #14 tabs 09/02/22 02/22/24 Rx docusate sodium 100 mg capsule 100 mg PO DAILY #90 caps 09/03/22 02/22/24 Rx (Colace) amino acids-protein hydrolysate 15 ml PO DAILY 02/22/24 02/22/24 History gram-72 kcal/30 mL oral liquid calcium carb-vit D3-minerals 600 1 tab PO BID 02/22/24 02/22/24 History mg calcium-400 unit tablet carbamazepine 100 mg chewable 100 mg PO DAILY #30 tabs 02/22/24 02/22/24 Rx tablet diazepam 2 mg tablet 1 mg PO QDAY agitation 02/22/24 History ergocalciferol (vitamin D2) 1,250 1,250 mcg PO 2XW #8 caps 02/22/24 Rx mcg (50,000 unit) capsule guaifenesin 100 mg/5 mL oral liquid 200 mg PO Q4H PRN 02/22/24 02/22/24 History lamotrigine 25 mg disintegrating 50 mg (2 x 25 mg) PO BID #120 tabs 02/22/24 02/22/24 Rx tablet melatonin 10 mg capsule 10 mg PO HS 02/22/24 02/22/24 History Have you fallen in the past year?: No PFSH Medical History Anxiety Cataracts, bilateral Cerebral palsy Decubitus skin ulcer Diabetes Flu vaccine need H/O emotional problems Health care maintenance history of chemical labotomy Hypertension Hyponatremia Hypothyroidism Osteoporosis Profound intellectual disabilities Seizures Thyroid disease Unspecified mood [affective] disorder Vision problems Vitamin deficiency Weight loss, non-intentional Surgical History No history of previous surgery Family History Other Family history unknown Social History Smoking Status: Never smoker second hand exposure: No alcohol intake: never substance use type: does not use what type of physical activity do you participate in: none seatbelt use: always HPI HPI Chief Complaint: Details: Interim History: Mik returns for follow-up visit. She has a history of profound mental retardation, cerebral palsy, hypertension, hepatitis B carrier state (from ), diabetes mellitus, vitamin D deficiency, B12 deficiency, osteoporosis and hypothyroidism who presented for evaluation of an episode of unresponsiveness in July 2022. She [place] and is accompanied by a staff member. In July 2022, she was at her usual baseline and was put to bed. Later that night, when staff went to change her diaper for treatment of urinary incontinence, she appeared unresponsive (she was not arousable to sternal rub). EMS was called and she was taken to the emergency room. In route, she was given a dose of Narcan and appeared to transiently arouse though after arrival to the emergency room she was again unresponsive and remained that way until the next morning. She then returned to her usual baseline. A head CT revealed encephalomalacia; no acute abnormality was i (more content not included)... Normal [facility] HbA1c (Bld) [Mass fraction]o n 12-29-2023 Average glucose Estimated from glycated hemoglobin (Bld) [Mass/Vol] 126 mg/dL Normal Not Established [facility] Comment on above: Order Comment: Diagn osis of Diabetes-Adults Non-Diabetic: < or = 5.6% Increased risk for developing diabetes: 5.7-6.4% Diagnostic of diabetes: > or = 6.5% Monitoring of Diabetes Age (y)....................... Therapeutic Goal (%) Adults: >18.........................<7.0 Pediatrics: 13-18...................<7.5 Pediatrics: 7-12....................<8.0 Pediatrics: 0-6..................... 7.5-8.5 [place] [employer]. Diabetes Care 33(S1), Aug 2009 Performed By: #### 4 548-4 #### SOLOMON JA ([id number]) [facility] ([facility]) [address] [place] [address] Hemoglobin A1c/Hemoglobin.to sterling 12-29-2023 HbA1c (Bld) [Mass fraction] 6.0 % High see below [facility] Comment on above: Order Comment: Diagn osis of Diabetes-Adults Non-Diabetic: < or = 5.6% Increased risk for developing diabetes: 5.7-6.4% Diagnostic of diabetes: > or = 6.5% Monitoring of Diabetes Age (y)....................... Therapeutic Goal (%) Adults: >18.........................<7.0 Pediatrics: 13-18...................<7.5 Pediatrics: 7-12....................<8.0 Pediatrics: 0-6..................... 7.5-8.5 [place] [employer]. Diabetes Care 33(S1), Aug 2009 Performed By: #### 4 548-4 #### JUANITO PERES ([id number]) [facility] ([facility]) [address] [place] [address] M. tuberculosis stim IFN-g a nd spot count panel (Bld)on 12-29-2023 Gamma interferon negative control spot count (Bld) [#] Passed [facility] Comment on above: Performed By: #### 7 4281-7 #### QUEST CHANTL ([id number]) [address] M. tuberculosis stim IFN-g CFP10 Ag spot count (Bld) [#] 0 [facility] Comment on above: Performed By: #### 7 4281-7 #### QUEST CHANTL ([id number]) [address] M. tuberculosis stim IFN-g ESAT-6 Ag spot count (Bld) [#] 0 [facility] Comment on above: Performed By: #### 7 4281-7 #### QUEST CHANTL ([id number]) [address] M. tuberculosis stim IFN-g Ql (Bld) [Interp] Negative Normal Negative [facility] Comment on above: Result Comment: A negative test result does not exclude the possibility of exposure to or infection with Mycobacterium tuberculosis (M. tuberculosis). Patients with recent exposure to TB infected individuals exhibiting a negative T-SPOT.TB result should be considered for retesting within 6 weeks or if other relevant clinical symptoms indicate. Results from T-SPOT.TB testing must be used in conjunction with each individual's epidemiological history, current medical status, and results of other diagnostic evaluations. The T-SPOT.TB test is qualitative and results are reported as positive, borderline, or negative, given that the test controls perform as expected. In line with the Centers for Disease Control and Prevention's 2010 recommendation to report quantitative measurements alongside the qualitative result, the laboratory provides spot counts for informational purposes only. The T-SPOT.TB test should not be interpreted as a quantitative test. Performed By: #### 7 4281-7 #### QUEST HELIO ([id number]) [address] Mitogen stimulated gamma interferon positive control spot count (Bld) [#] Passed Normal [facility] Comment on above: Result Comment: For additional information, please refer to http://education.[employer]/faq/UKJ110 (This link is being provided for informational/ educational purposes only.) Performed By: #### 7 4281-7 #### QUEST HELIO ([id number]) [address] Ammoniaon 10-14-2023 Ammonia (P) [Moles/Vol] 13 umol/L Low 16-53 [facility] Comment on above: Performed By: #### 1 6362-6 #### JUANITO PERES ([id number]) [facility] ([facility]) [address] [place] [address] CBC panel Auto (Bld)on 10-13 Erythrocyte distribution width (RBC) [Ratio] 13.9 % Normal 11.5-14.5 [facility] Comment on above: Performed By: #### 5 8410-2 #### JUANITO PERES ([id number]) [facility] ([facility]) [address] [place] [address] Hematocrit (Bld) [Volume fraction] 36.7 % Normal 36.0-46.0 [facility] Comment on above: Performed By: #### 5 8410-2 #### JUANITO PERES ([id number]) [facility] ([facility]) [address] [place] [address] Hemoglobin (Bld) [Mass/Vol] 11.8 g/dL Low 12.0-16.0 [facility] Comment on above: Performed By: #### 5 8410-2 #### JUANITO PERES ([id number]) [facility] ([facility]) [address] [place] [address] MCH (RBC) [Entitic mass] 31.0 pg Normal 26.0-34.0 [facility] Comment on above: Performed By: #### 5 8410-2 #### JUANITO PERES ([id number]) [facility] ([facility]) [address] [place] [address]369 MCHC (RBC) [Mass/Vol] 32.2 g/dL Normal 32.0-36.0 [facility] Comment on above: Performed By: #### 5 8410-2 #### JUANITO PERES ([id number]) [facility] ([facility]) [address] [place] [address] MCV (RBC) [Entitic vol] 96 fL Normal 80-100 [facility] Comment on above: Performed By: #### 5 8410-2 #### JUANITO PERES ([id number]) [facility] ([facility]) [address] [place] [address] Nucleated RBC/100 WBC (Bld) [Ratio] 0.0 /100 WBCs Normal 0.0-0.0 [facility] Comment on above: Performed By: #### 5 8410-2 #### JUANITO PERES ([id number]) [facility] ([facility]) [address] [place] [address] Platelets (Bld) [#/Vol] 339 x10*3/uL Normal 150-450 [facility] Comment on above: Performed By: #### 5 8410-2 #### JUANITO PERES ([id number]) [facility] ([facility]) [address] [place] [address] RBC (Bld) [#/Vol] 3.81 x10*6/uL Low 4.00-5.20 [facility] Comment on above: Performed By: #### 5 8410-2 #### JUANITO PERES ([id number]) [facility] ([facility]) [address] [place] [address] WBC (Bld) [#/Vol] 10.5 x10*3/uL Normal 4.4-11.3 [facility] Comment on above: Performed By: #### 5 8410-2 #### JUANITO PERES ([id number]) [facility] ([facility]) [address] [place] [address] Calcitriolon 10-14-2023 1,25-dihydroxyvitamin D3 [Mass/Vol] 15.3 pg/mL Low 19.9-79.3 [facility] Comment on above: Result Comment: INTE RPRETIVE INFORMATION: Vitamin D, 1,25-Dihydroxy This test is primarily indicated during patient evaluation for hypercalcemia and renal failure. A normal result does not rule out Vitamin D deficiency. The recommended test for diagnosing Vitamin D deficiency is Vitamin D 25-hydroxy. Performed By: [facility] [address] [place] [address] Water Pump Installer: Gabriele Sanderson MD, PhD CLIA Number: [id number] Performed By: #### 1 649-3 #### [employer] (LEV) ([id number]) [address] [place] [address] Comprehensive metabolic 2000 panelon 10-14-2023 Albumin BCP dye [Mass/Vol] 3.7 g/dL Normal 3.4-5.0 [facility] Comment on above: Performed By: #### 2 4323-8 #### JUANITO PERES ([id number]) [facility] ([facility]) [address] [place] [address] ALP [Catalytic activity/Vol] 76 U/L Normal 33-136 [facility] Comment on above: Performed By: #### 2 4323-8 #### JUANITO PERES ([id number]) [facility] ([facility]) [address] [place] [address] ALT With P-5'-P [Catalytic activity/Vol] 14 U/L Normal 7-45 [facility] Comment on above: Result Comment: Stephanie ents treated with Sulfasalazine may generate falsely decreased results for ALT. Performed By: #### 2 432-8 #### JUANITO PERES ([id number]) [facility] ([facility]) [address] [place] [address] Anion gap [Moles/Vol] 12 mmol/L Normal 10-20 [facility] Comment on above: Performed By: #### 2 432-8 #### JUANITO PERES ([id number]) [facility] ([facility]) [address] [place] [address] AST With P-5'-P [Catalytic activity/Vol] 14 U/L Normal 9-39 [facility] Comment on above: Performed By: #### 2 432-8 #### JUANITO PERES ([id number]) [facility] ([facility]) [address] [place] [address] Bilirubin [Mass/Vol] 0.3 mg/dL Normal 0.0-1.2 [facility] Comment on above: Performed By: #### 2 4322-8 #### JUANITO PERES (24804) [facility] ([facility]) [address] [place] [address] Calcium [Mass/Vol] 9.3 mg/dL Normal 8.6-10.3 [facility] Comment on above: Performed By: #### 2 432-8 #### JUANITO PERES ([id number]) [facility] ([facility]) [address] [place] [address] Chloride [Moles/Vol] 100 mmol/L Normal 98-107 [facility] Comment on above: Performed By: #### 2 4323-8 #### JUANITO PERES (43720) [facility] ([facility]) [address] [place] [address] CO2 [Moles/Vol] 29 mmol/L Normal 21-32 [facility] Comment on above: Performed By: #### 2 432-8 #### JUANITO PERES (79051) [facility] ([facility]) [address] [place] [address] Creatinine [Mass/Vol] 0.65 mg/dL Normal 0.50-1.05 [facility] Comment on above: Performed By: #### 2 432-8 #### JUANITO PERES (50126) [facility] ([facility]) [address] [place] [address] Glomerular filtration rate/1.73 sq M.predicted 90 mL/min/1.73m*2 Normal >60 [facility] Comment on above: Result Comment: Calc ulations of estimated GFR are performed using the 2020 CKD-EPI Study Refit equation without the race variable for the IDMS-Traceable creatinine methods. https://jasn.asnjournals.org/content/early//ASN.2020 611912 Performed By: #### 2 432-8 #### JUANITO PERES ([id number]) [facility] ([facility]) [facility] [place] [address] Glucose [Mass/Vol] 97 mg/dL Normal 74-99 [facility] Comment on above: Performed By: #### 2 4323-8 #### JUANITO PERES (07077) [facility] ([facility]) [facility] [place] [address] Potassium [Moles/Vol] 4.0 mmol/L Normal 3.5-5.3 [facility] Comment on above: Performed By: #### 2 4323-8 #### JUANITO PERSE (15135) [facility] ([facility]) [address] [place] [address] Protein [Mass/Vol] 6.8 g/dL Normal 6.4-8.2 [facility] Comment on above: Performed By: #### 2 4323-8 #### JUANITO PERES (16566) [facility] ([facility]) [address] [place] [address] Sodium [Moles/Vol] 137 mmol/L Normal 136-145 [facility] Comment on above: Performed By: #### 2 4323-8 #### JUANITO PERES (55103) [facility] ([facility]) [address] [place] [address]651 Urea nitrogen [Mass/Vol] 15 mg/dL Normal 6-23 [facility] Comment on above: Performed By: #### 2 4323-8 #### JUANITO PERES ([id number]) [facility] ([facility]) [address] [place] [address] 95353 carBAMazepineon 10-14-2023 carBAMazepine [Mass/Vol] 3.7 ug/mL Low 4.0-12.0 [facility] Comment on above: Performed By: #### 3 432-2 #### RICO Mckeon ([id number]) [facility] ([facility]) [address] [place], [place] [address] lamoTRIgineon 10-14-2023 lamoTRIgine [Mass/Vol] 4.1 ug/mL Normal 2.5-15.0 [facility] Comment on above: Performed By: #### 6 948-4 #### RICO Mckeon ([id number]) [facility] ([facility]) [address] [place], [place] [address] Colonoscopy studyon 10-05-19 24 Table formatting fro m the original result was not included. Impression Small, flat (grade 1) hemorrhoid Findings One internal small, flat (grade 1) hemorrhoid observed during retroflexion; no bleeding was identified Recommendation Follow up with PCP No further screening colonoscopies necessary Age greater than 65 Overall health Indication Positive colorectal cancer screening using Cologuard test Staff Staff Role No Staff Documented Medications See Anesthesia Record. Preprocedure A history and physical has been performed, and patient medication allergies have been reviewed. The patient's tolerance of previous anesthesia has been reviewed. The risks and benefits of the procedure and the sedation options and risks were discussed with the patient and her caregivers . All questions were answered and informed consent obtained. Details of the Procedure The patient underwent monitored anesthesia care, which was administered by an anesthesia professional. The patient's blood pressure, ECG, ETCO2, heart rate, level of consciousness, oxygen and respirations were monitored throughout the procedure. A digital rectal exam was performed. A perianal exam was performed. The scope was introduced through the anus and advanced to the terminal ileum. The quality of bowel preparation was evaluated using the [place] Bowel Preparation Scale with scores of: right colon = 2, transverse colon = 3, left colon = 2. The total BBPS score was 7. Bowel prep was adequate. The patient experienced no blood loss. The procedure was not difficult. The patient tolerated the procedure well. There were no apparent adverse events. Events Procedure Events Event Event Time ENDO SCOPE IN TIME 10/05/2023 11:40 AM ENDO CECUM REACHED 10/05/2023 11:53 AM ENDO SCOPE OUT TIME 10/05/2023 11:58 AM Specimens No specimens collected Procedure Location [facility] [place] [address] [place] [id number] Referring Provider Clara Jones DO [address] [facility], [place] [address] Procedure Provider Clara Jones DO [facility] Work Phone: [facility] Work Phone: Radiology Study observation (narrative) [facility] Work Phone: Glucose Test strip manual (B ld) [Mass/Vol]on 10-05-2023 Glucose [Mass/Vol] 120 mg/dL High 74 - 99 mg/dL [facility] Interpretation and review of laboratory results Abnormal [facility] Clinical Event Note-ED Post Discharge Result Follow Up: Compon 02-13-2023 Clinical Event Note-ED Post Discharge Result Follow Up: Comp Clinical Event: Clinical Event Note: TopicED Post Discharge Result Follow Up: Complete : Blood: Corynebacterium and Coag Neg Staph Details Phone number contacted: Patient RN Saumya ([phone]) Nurse Name: Dhaval Patel There were positive blood cultures identified for this patient. The emergency room nurse was notified and completed follow-up with patient. There is no further action that needs to be taken. If there are any other questions for the ED Post-Discharge Culture Follow Up Team, please contact [phone]. . Dionna Lobato PharmD, [facility] Clinical Pharmacist [facility] Electronic Signatures: Dionna Lobato ([facility]) (Signed 13-Feb-2023 14:19) Authored: Clinical Event Note Last Updated: 13-Feb-2023 14:19 by Dionna Lobato ([facility]) [facility] Clinical Event Note-blood cu ltureon 02-12-2023 Clinical Event Note-blood culture Clinical Event: Clinical Event Note: Topicblood culture Details 0604- received a call from [facility] with 1/4 aerobic pleomorphic gram positive bacilli. Dr. Hall notified. from prior clinical event note, pt RN at [facility] notified. 628- saumya CAN notified of second positive blood culture results, per Dr. hall pt to come back to ED if fever or worsening symptoms, also to notify pt primary physician. per RN, pt doing well aware to bring pt back to ER with any concerns. Electronic Signatures: Alicia Jackson (PAMELLA) (Signed 12-Feb-2023 06:32) Authored: Clinical Event Note Last Updated: 12-Feb-2023 06:32 by Alicia Jackson (RN) [facility] Clinical Event Note-+BLOOD C ULTUREon 02-11-2023 Clinical Event Note-+BLOOD CULTURE Clinical Event: Clinical Event Note: Topic+BLOOD CULTURE Details call received from [facility] at 0640 1 of 4 bottles positive for gram positive cocci in cluster spoke with dr angelito hall states this is likely contaminate but please contact patient and see how pt is doing. if sx are worse or febrile please return to ed. attempted to contact patient at [facility], but per the on [facility] staff there that pt does not reside there. attempted to contact emergency contact but name on voicemail did not match name listed. passed on to dhaval patel rn 0705: Contacted [facility], who gave the contact info for the person who called the squad: Pearl Avery [phone]. I left a voicemail to contact ED. They confirmed the [address] Address. [facility] [employer] [facility] is the contact for this address/institution, left a voicemail at [phone] to get in contact with the ED in regards to one of their patients. Will continue to try and reach patient's caretakers. 0900: Spoke with [facility] who gave contact info for the employee relations director Irene Breann ([phone]). She gave me contact info for patient's RN. Contacted PAMELLA Dunbar ([phone]), patients personal nurse. Patient is having no signs or symptoms of distress, no fever. Patient is not having fever. PAMELLA Dunbar notified and aware of watching for signs/symptoms of infection and to call ED or bring patient back into ED with any concerns. Electronic Signatures: Catina Beard (RN) (Signed 11-Feb-2023 07:10) Authored: Clinical Event Note Dhaval Patel (PAMELLA) (Signed 11-Feb-2023 09:08) Authored: Clinical Event Note Last Updated: 11-Feb-2023 09:08 by Dhaval Patel (RN) Normal [facility] BASIC METABOLIC PANELon 07-0 Anion gap [Moles/Vol] 12 mmol/L Normal 10 - 20 [facility] Comment on above: Performed By: #### B MP #### [address] [address] Calcium [Mass/Vol] 8.2 mg/dL Low 8.6 - 10.3 [facility] Comment on above: Performed By: #### B MP #### [address] [address] Chloride [Moles/Vol] 93 mmol/L Low 98 - 107 [facility] Comment on above: Performed By: #### B MP #### [address] [address] Creatinine [Mass/Vol] 0.87 mg/dL Normal 0.50 - 1.05 [facility] Comment on above: Performed By: #### B MP #### [address] [address] GFR/1.73 sq M.predicted among non-blacks MDRD (S/P/Bld) [Vol rate/Area] 68 mL/min/{1.73_m2} Normal >90 [facility] Comment on above: Result Comment: CALC ULATIONS OF ESTIMATED GFR ARE PERFORMED USING THE 2020 CKD-EPI STUDY REFIT EQUATION WITHOUT THE RACE VARIABLE FOR THE IDMS-TRACEABLE CREATININE METHODS. https://jasn.asnjournals.org/content/early//ASN.2020 691567 Performed By: #### B MP #### [address] [address] Glucose [Mass/Vol] 88 mg/dL Normal 74 - 99 [facility] Comment on above: Performed By: #### B MP #### [address] [address] HCO3 (Bld) [Moles/Vol] 28 mmol/L Normal 21 - 32 [facility] Comment on above: Performed By: #### B MP #### [address] [address] Potassium [Moles/Vol] 5.3 mmol/L Normal 3.5 - 5.3 [facility] Comment on above: Result Comment: MILD HEMOLYSIS DETECTED. The result may be falsely elevated due to hemolysis or other interferents. Clinical correlation is recommended. Repeat testing may be considered. Performed By: #### B MP #### [address] [address] Sodium [Moles/Vol] 128 mmol/L Low 136 - 145 [facility] Comment on above: Performed By: #### B MP #### [address] [address] Urea nitrogen [Mass/Vol] 17 mg/dL Normal 6 - 23 [facility] Comment on above: Performed By: #### B MP #### [address] [address] BLOOD CULTURE, BACTERIALon 0 02-10-2023 BLOOD CULTURE, BACTERIAL Called- RB to Arleen Jackson RN, 02/12/2023 05:58 Called- RB to Arleen Jackson RN, 02/12/2023 05:58 PATIENT: MIK SHELTON LOCATION: [facility] BILL#: [id number] : 43 AGE: SEX: F ORDERED BY: LAZARO HANDY SOURCE: Blood COLLECTED: 02/10/23 08:59 ANTIBIOTICS AT DILIA.: RECEIVED : 02/10/23 13:27 SITE: PERIPHERAL R E S U L T S BLOOD CULTURE, BACTERIAL FINAL 02/13/23 11:52 No Growth at 1 days ISOLATE1 : Corynebacterium species AEROBIC VIAL POSITIVE Isolation of common skin bacteria from a single blood culture usually indicates contamination Notify the microbiology laboratory at [phone] if clinical features indicate the need for further workup. Normal [facility] Comment on above: Performed By: #### G [place]URI #### [place] [address] BLOOD CULTURE, BACTERIAL Called- RB to Bety Beard RN, 02/11/2023 06:40 PATIENT: MIK SHELTON LOCATION: [facility]#: [id number] : 43 AGE: SEX: F ORDERED BY: LAZARO HANDY SOURCE: Blood COLLECTED: 02/10/23 08:58 ANTIBIOTICS AT DILIA.: RECEIVED : 02/10/23 13:27 SITE: PERIPHERAL ANTECUBITAL ANTECUBITAL ANTECUBITAL R E S U L T S BLOOD CULTURE, BACTERIAL FINAL 02/12/23 14:17 ISOLATE1 : Coagulase negative staphylococcus ANAEROBIC VIAL POSITIVE Isolation of common skin bacteria from a single blood culture usually indicates contamination Notify the microbiology laboratory at [phone] if clinical features indicate the need for further workup. Normal [facility] Comment on above: Performed By: #### T [facility] #### [place] [address] CBC AND DIFFERENTIALon 02-10 % AUTOMATED IMMATURE GRAN 0.3 % Normal 0.0 - 0.9 [facility] Comment on above: Result Comment: Arti ture Granulocyte Count (IG) includes promyelocytes, myelocytes and metamyelocytes but does not include bands. Percent differential counts (%) should be interpreted in the context of the absolute cell counts (cells/L). Performed By: #### Polly MANRIQUEZO #### [address] [address] Basophils (Bld) [#/Vol] 0.04 10*3/uL Normal 0.00 - 0.1 0 [facility] Comment on above: Performed By: #### G LARUI #### [address] [address] Basophils/100 WBC (Bld) 0.4 % Normal 0.0 - 2.0 [facility] Comment on above: Performed By: #### Polly CARREON #### [address] [address] Eosinophils (Bld) [#/Vol] 0.44 10*3/uL High 0.00 - 0.40 [facility] Comment on above: Performed By: #### Polly MANRIQUEZO #### [address] [address] Eosinophils/100 WBC (Bld) 4.3 % Normal 0.0 - 6.0 [facility] Comment on above: Performed By: #### Polly MANRIQUEZO #### [address] [address] Erythrocyte distribution width (RBC) [Ratio] 12.9 % Normal 11.5 - 14.5 [facility] Comment on above: Performed By: #### Polly MANRIQUEZO #### [address] [address] Hematocrit (Bld) [Volume fraction] 35.4 % Low 36.0 - 46.0 [facility] Comment on above: Performed By: #### Polly MANRIQUEZO #### [address] [address] Hemoglobin (Bld) [Mass/Vol] 11.4 g/dL Low 12.0 - 16.0 [facility] Comment on above: Performed By: #### Polly MANRIQUEZO #### [address] [address] Lymphocytes (Bld) [#/Vol] 2.37 10*3/uL Normal 0.80 - 3.00 [facility] Comment on above: Performed By: #### Polly CARREON #### [address] [address] Lymphocytes/100 WBC (Bld) 23.4 % Normal 13.0 - 44.0 [facility] Comment on above: Performed By: #### Polly CARREON #### [address] [address] MCHC (RBC) [Mass/Vol] 32.2 g/dL Normal 32.0 - 36.0 [facility] Comment on above: Performed By: ###Libia CARREON #### [address] [address] MCV (RBC) [Entitic vol] 95 fL Normal 80 - 100 [facility] Comment on above: Performed By: ###Libia CARREON #### [address] [address] Monocytes (Bld) [#/Vol] 0.71 10*3/uL Normal 0.05 - 0.8 0 [facility] Comment on above: Performed By: ###Libia CARREON #### [address] [address] Monocytes/100 WBC (Bld) 7.0 % Normal 2.0 - 10.0 [facility] Comment on above: Performed By: ###Libia CARREON #### [address] [address] Neutrophils (Bld) [#/Vol] 6.54 10*3/uL High 1.60 - 5.50 [facility] Comment on above: Result Comment: Perc ent differential counts (%) should be interpreted in the context of the absolute cell counts (cells/L). Performed By: ###Libia MANRIQUEZO #### [address] [address] Neutrophils/100 WBC (Bld) 64.6 % Normal 40.0 - 80.0 [facility] Comment on above: Performed By: ###Libia CARREON #### [address] [address] Platelets (Bld) [#/Vol] 307 10*3/uL Normal 150 - 450 [facility] Comment on above: Performed By: #### G LAURI #### [address] [address] RBC 3.73 x10E12/L Low 4.00 - 5.20 [facility] Comment on above: Performed By: #### G LAURI #### [address] [address] WBC (Bld) [#/Vol] 10.1 10*3/uL Normal 4.4 - 11.3 [facility] Comment on above: Performed By: #### G LAURI #### [address] [address] CHEST 1 VIEWon 02-10-2023 CHEST 1 VIEW Patient Name: MIK SHELTON STUDY: CHEST 1 VIEW; 02/10/2023 8:36 am INDICATION: mental status change . COMPARISON: 08/08/2022 ACCESSION NUMBER(S): [id number] ORDERING CLINICIAN: LAZARO HANDY FINDINGS: The lungs are clear without apparent pleural effusion. Unremarkable cardiomediastinal silhouette. Aortic atherosclerosis. No pulmonary vascular congestion. Mild reverse S shaped scoliosis. IMPRESSION: No active disease in the chest. Electronically signed by: KINZA MCHUGH MD Normal [facility] CT HEAD WO CONTRASTon 2022 CT HEAD WO CONTRAST Patient Name: MIK SHELTON STUDY: CT HEAD WO CONTRAST; 02/10/2023 8:51 am INDICATION: mental status change . COMPARISON: 08/08/2022 ACCESSION NUMBER(S): [id number] ORDERING CLINICIAN: LAZARO HANDY TECHNIQUE: Examination was performed in the axial plane with sagittal and coronal reconstructions. FINDINGS: INTRACRANIAL: There is prominence of the ventricular system and cerebral sulci consistent with cerebral atrophy. Status post bifrontal craniectomy. 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 No mass or mass effect is identified. There is no hemorrhage or subdural fluid collection. There is no acute infarct. EXTRACRANIAL: Visualized paranasal sinuses and mastoids are clear. IMPRESSION: No acute intracranial pathology. 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 Electronically signed by: SELMA MOYA MD Normal [facility] HEPATIC FUNCTION PANELon Albumin [Mass/Vol] 3.5 g/dL Normal 3.4 - 5.0 [facility] Comment on above: Performed By: #### G LAURI #### [address] [address] ALP [Catalytic activity/Vol] 71 U/L Normal 33 - 136 [facility] Comment on above: Performed By: #### G LAURI #### [address] [address] ALT [Catalytic activity/Vol] 23 U/L Normal 7 - 45 [facility] Comment on above: Result Comment: Stephanie ents treated with Sulfasalazine may generate falsely decreased results for ALT. Performed By: #### G LAURI #### [address] [address] AST [Catalytic activity/Vol] 25 U/L Normal 9 - 39 [facility] Comment on above: Result Comment: MILD HEMOLYSIS DETECTED. The result may be falsely elevated due to hemolysis or other interferents. Clinical correlation is recommended. Repeat testing may be considered. Performed By: #### G LAURI #### [address] [address] Bilirubin [Mass/Vol] 0.3 mg/dL Normal 0.0 - 1.2 [facility] Comment on above: Performed By: #### G LAURI #### [address] [address] Bilirubin.indirect [Mass/Vol] 0.0 mg/dL Normal 0.0 - 0.3 [facility] Comment on above: Result Comment: MILD HEMOLYSIS DETECTED. The result may be falsely decreased due to hemolysis or other interferents. Clinical correlation is recommended. Repeat testing may be considered. Performed By: #### G LAURI #### [address] [address] Protein [Mass/Vol] 6.2 g/dL Low 6.4 - 8.2 [facility] Comment on above: Performed By: #### G LAURI #### [address] [address] LACTATEon 02-10-2023 Lactate [Moles/Vol] 0.9 mmol/L Normal 0.4 - 2.0 [facility] Comment on above: Result Comment: Larissa puncture immediately after or during the administration of Metamizole may lead to falsely low results. Testing should be performed immediately prior to Metamizole dosing. Performed By: #### G LAURI #### [address] [address] LIPASEon 02-10-2023 Lipase [Catalytic activity/Vol] 43 U/L Normal 9 - 82 [facility] Comment on above: Result Comment: Larissa puncture immediately after or during the administration of Metamizole may lead to falsely low results. Testing should be performed immediately prior to Metamizole dosing. N-thudlf-u-benzoquinone imine (metabolite of Acetaminophen) will generate erroneously low results in samples for patients that have taken toxic doses of acetaminophen. Performed By: #### G LAURI #### [address] [address] PT/INRon 02-10-2023 PT Coag (PPP) [Time] 11.0 s Normal 9.8 - 12.8 [facility] Comment on above: Result Comment: Note new reference range as of 01/27/2023 at 10:00am. Performed By: #### G LAURI #### [address] [address] PT, INR 1.0 Normal 0.9 - 1.1 [facility] Comment on above: Performed By: #### G LAURI #### [address] [address] Provider Note - ED v3on 07 Provider Note - ED v3 Provider Note: Results/Vital Signs: Pediatric Clinical Scoring (MARICARMEN) is no recent MARICARMEN charted on this account Chart Review: ED NOTES ED NOTES: CC=ALTERED MENTAL STATUS HPI= this 77-year-old patient who arrives from a [place] [facility] [place] for altered mentation. 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 [place]amedics and staff [place] [facility] [place] states that she is back at her baseline currently. She is unable to elaborate any history of all PM HX= mental retardation mental status change SH= full-time resident of a [place] HISTORY OF PRESENTING ILLNESS MIK is a 77 year old Female and was seen by me at 10-Feb-2023 07:54 for a chief complaint of other (Patient to ED with EMS from [facility], patient was unresponsive and bradycardic per EMS. Patient then in the squad woke up at was back to baseline. Patient is MRDD, nonverbal. Patient alert, looking around. Blood glucose 115)(1). Triage Information: Most recent Vital Sign Value Date Temp (F): 96 02-10-2023 07:48 Temp (C): 35.5 02-10-2023 07:48 Heart Rate (beats/min): 65 02-10-2023 07:48 Respirations (breaths/min): 14 02-10-2023 07:48 SpO2 (%): 96 02-10-2023 07:48 BP Systolic (mm Hg): 112 02-10-2023 07:48 BP Diastolic (mm Hg): 67 02-10-2023 07:48 PAST MEDICAL HISTORY ALLERGIES/INTOLERANCES: Allergy Allergen: penicillin Type: Drug Reaction: Unknown Allergen: amoxicillin Type: Drug Reaction: Unknown HEALTH HISTORY: No documented data. OUTPATIENT MEDICATIONS: Home Medications Review Status for Reconciliation: N/A Med Status: Patient Currently Takes Medications Drug Name: alendronate 70 mg oral tablet Instructions: 1 tab(s) orally once a week Drug Name: guaiFENesin 100 mg/5 mL oral liquid Instructions: 10 milliliter(s) orally every 4 hours Drug Name: hydrOXYzine hydrochloride 25 mg oral tablet Instructions: 1 tab(s) orally 4 times a day Drug Name: levothyroxine 50 mcg (0.05 mg) oral capsule Instructions: 1 cap(s) orally once a day Drug Name: lisinopril 30 mg oral tablet Instructions: 1 tab(s) orally once a day Drug Name: lovastatin 20 mg oral tablet Instructions: 1 tab(s) orally once a day Drug Name: Tylenol 8 Hour Instructions: 325 milligram(s) orally every 6 hours, As Needed Drug Name: ARIPiprazole 10 mg oral tablet Instructions: 1 tab(s) orally once a day Drug Name: bisacodyl 10 mg rectal suppository Instructions: rectal every 48 hours, As Needed Drug Name: calcium carbonate 600 mg oral tablet, chewable Instructions: orally 2 times a day Drug Name: Multiple Vitamins with Minerals oral capsule Instructions: orally every 24 hours Drug Name: Vitamin B12 1000 mcg oral tablet Instructions: 1 tab(s) orally once a day Drug Name: Vitamin D3 50 mcg (2000 intl units) oral tablet Instructions: 1 tab(s) orally once a day Drug Name: metFORMIN 500 mg oral tablet, extended release Instructions: 1 tab(s) orally once a day Drug Name: carBAMazepine 100 mg oral tablet, chewable Instructions: 1 tab(s) orally every 12 hours Drug Name: diazePAM 2 mg oral tablet Instructions: 0.5 tab(s) orally every 12 hours Drug Name: insulin lispro 100 units/mL injectable solution Instructions: Use as directed per sliding scale SIGNIFICANT EVENTS: Past Medical History Description:diabetes Description:osteoporosi s Description:mood disorder Description:Seizure Disorder Description:Hypothyroid ism Description:Hypertensio n Description:Hyperlipide haven REVIEW OF SYSTEMS CONSTITUTIONAL: POSITIVE for: malaise and weakness Negative for: chills and fever EYES: Negative for: redness and vision changes ENMTEars: Negative for: pain Nose: Negative for: congestion and discharge Throat/Neck: Negative for: neck pain and neck stiffness CARDIOVASCULAR: Negative for: chest pain and palpitations RESPIRATORY: Negative for: cough and dyspnea GASTROINTESTINAL: Negative for: abdominal pain, nausea and vomiting; GENITOURINARY: Negative for: dysuria, frequency and hematuria; MUSCULOSKELETAL: POSITIVE for: weakness Negative for: joint pain and stiffness INTEGUMENTARY: Negative for: rash NEUROLOGICAL: POSITIVE for: altered mental status; Negative for: headache and loss of function; HEME/LYMPH: Negative for: anemia and easy bleeding All other systems reviewed and are negative PHYSICAL EXAM CONSTITUTIONAL: Patient's eyes are open and she is awake and cooperative but not verbal at this time she is at her normal baseline HE (more content not included)... Normal [facility] Risk Screen - Adult Emergenc yon 02-10-2023 Risk Screen - Adult Emergency Preferred Language: Preferred Language: Preferred Language for Discussing Health Care (patient/designee)Nakia zuniga Patient Preferred Pharmacy: Patient Preferred Pharmacy Statement: I have reviewed and updated the patient's preferred pharmacy selection for today's visit. Advanced Directives: Advance Directive/DNRno Advance Directive Information Givenpatient/family declined Family Violence Adult: Abuse Screen: Are you or have you been threatened or abused physically, emotionally, or sexually by anyoneunable to assess Clinical assessment: Are there any apparent signs of injuries/behaviors that could be related to abuse/neglectno Learning Assessment (Patient): Learning Assessment (Patient): Patient is Able to be Assessed for Learningno Reason Unable to Assessmentally impaired Learning Assessment (Other Learner): Learning Assessment (Other Learner): Other learner availableno Pressure Injury/TB/Substance: Pressure Injury: Pressure Injury Present on Admissionno Do you have a coughno Smoking Statusunable to assess Admission Risk Screen: Significant IndicatorsComplete CAGE: CAGE: Is this an injured patient at a Trauma Center ([facility]/[place]/[facility]/[place]): no Electronic Signatures: Dhaval Patel (RN) (Signed 10-Feb-2023 08:07) Authored: Preferred Language, Patient Preferred Pharmacy, Advanced Directives, Family Violence Adult, Learning Assessment (Patient), Learning Assessment (Other Learner), Pressure Injury/TB/Substance, Pressure Injury, CAGE Last Updated: 10-Feb-2023 08:07 by Dhaval Patel (PAMELLA) Normal [facility] TROPONIN I, HIGH SENSITIVITY on 02-10-2023 TROPONIN I, HIGH SENSITIVITY 4 ng/L Normal 0 - 13 [facility] Comment on above: Result Comment: . Less than 99th percentile of normal range cutoff- Female and children under 18 years old <14 ng/L; Male <21 ng/L: Negative Repeat testing should be performed if clinically indicated. . Female and children under 18 years old 14-50 ng/L; Male 21-50 ng/L: Consistent with possible cardiac damage and possible increased clinical risk. Serial measurements may help to assess extent of myocardial damage. . >50 ng/L: Consistent with cardiac damage, increased clinical risk and myocardial infarction. Serial measurements may help assess extent of myocardial damage. . NOTE: Children less than 1 year old may have higher baseline troponin levels and results should be interpreted in conjunction with the overall clinical context. . NOTE: Troponin I testing is performed using a different testing methodology at [facility] than at other [facility]. Direct result comparisons should only be made within the same method. Performed By: #### T [facility] #### [facility] [address] [place] [address] Triage - EDon 02-10-2023 Triage - ED Chart Review: ARRIVAL INFORMATION Mode of Arrival: ambulance Agency Name: [facility] CHIEF COMPLAINT MIK SHELTON is a Female patient with a chief complaint of other (Patient to ED with EMS from [facility], patient was unresponsive and bradycardic per EMS. Patient then in the squad woke up at was back to baseline. Patient is MRDD, nonverbal. Patient alert, looking around. Blood glucose 115). Triage Date/Time: 10-Feb-2023 07:48 SHEKHAR: 3 Pain Rating (0-10): unable to assess Vital Signs: Temperature: 96.0F ( 35.5C) taken temporal Blood Pressure: 112/67 Mean: Heart Rate: 65 Respiratory Rate: 14 Pulse Oximetry: 96% on room air, no respiratory support. Weight: 141.0 pounds. Calculated 64.0 kg. (stated (per paperwork)) Renee Coma Scale: Best Eye Response: (E4) spontaneous Best Motor Response: (M5) localizes pain Best Verbal Response: (V1) none Renee Score: 10 Patient has homicidal thoughts: no Symptoms Are Negative For: anxiety, chills, diaphoresis, dyspnea, headache, loss of consciousness, nausea, numbness, pain, tingling and weakness Last Known Well: unknown Risk Screens Suicide Risk Screen [place] Risk Screen: unable to assess [place] Risk Screen (patient nonverbal) Bell Fall Scale Screening Has the patient fallen before (or is the patient in the ED as a result of a fall) has not had a fall Does the patient have an impaired gait has impaired gait Is the patient cognitively impaired cognitively impaired Bell Fall Scale History of falling (immediate or previous) no (0) Secondary Diagnosis yes (15) Intravenous Therapy/ Heparin/Saline Lock no (0) Gait/Transferring normal/bedrest/wheelcha ir (0) Ambulatory Aids none/bedrest/nurse assist (0) Mental Status overestimates/forgets limitations (15) Bell Fall Risk Score: 30 Interventions: Ray Fall Interventions: MODERATE INTERVENTIONS: *Low Interventions Plus: * falls risk band/sticker applied to patient, *yellow non-skid footwear, *instruct to call for assistance before getting out of bed, *bed/chair/bedside commode/toilet alarms, *sensory devices/ambulatory aides available and in reach, *medications reviewed for potential side effects and care planning. TRAVEL HISTORY Travel History Coronavirus Screening: no exposure or symptoms Travel Exposure History: NO travel to International locations in the past 30 days PAIN Pain Scale Used: NALLELY Pain Rating (0-10): unable to assess Past Medical History: Past Medical History Reviewedyes Hyperlipidemia: Past Medical History, Active Hypertension: Past Medical History, Active Hypothyroidism: Past Medical History, Active Seizure Disorder: Past Medical History, Active mood disorder: Past Medical History, Active osteoporosis: Past Medical History, Active Electronic Signatures: Dhaval Patel (RN) (Signed 10-Feb-2023 08:05) Authored: Quick Triage, Risk Screens, Pain, Travel History, Chart Review, Scores, Past Medical History Last Updated: 10-Feb-2023 08:05 by Dhaval Patel (RN) Normal [facility] UA MICROSCOPICon 02-10-2023 BACTERIA 2+ /HPF Abnormal [facility] Comment on above: Performed By: #### G LAURI #### [place] [address] Mucus Ql (Urine sed) 1+ /LPF Normal [facility] Comment on above: Performed By: #### G LAURI #### [place] [address] RBC 1 /HPF Normal 0-5 [facility] Comment on above: Performed By: #### G LAURI #### [place] [address] SQUAMOUS EPITH. CELLS 6 /HPF Normal [facility] Comment on above: Performed By: #### G LAURI #### [place] [address] WBC 10 /HPF Abnormal 0-5 [facility] Comment on above: Performed By: #### G LAURI #### [place] [address] URINALYSIS WITH CULTURE IF I NDICATEDon 02-10-2023 Appearance (U) HAZY Normal CLEAR [facility] Comment on above: Performed By: #### U AR[place] #### [place] [address] Bilirubin Ql (U) Negative Normal NEGATIVE [facility] Comment on above: Performed By: #### U [place] #### [place] [address] Color (U) Yellow Normal STRAW,YELLOW [facility] Comment on above: Performed By: #### U [place] #### [place] [address] Glucose Ql (U) Negative Normal NEGATIVE [facility] Comment on above: Performed By: #### U [place] #### [place] [address] Hemoglobin Ql (U) Negative Normal NEGATIVE [facility] Comment on above: Performed By: #### U ARFX #### [place] [address] Ketones Ql (U) Negative Normal NEGATIVE [facility] Comment on above: Performed By: #### U ARFX #### [place] [address] Leukocyte esterase Test strip Ql (U) SMALL(1+) Abnormal NEGATIVE [facility] Comment on above: Performed By: #### U ARFX #### [place] [address] Nitrite Ql (U) Negative Normal NEGATIVE [facility] Comment on above: Performed By: #### U ARFX #### [place] [address] pH (U) 6.0 [pH] Normal 5.0 - 8.0 [facility] Comment on above: Performed By: #### U ARFX #### [address] [address] Protein Ql (U) Negative Normal NEGATIVE [facility] Comment on above: Performed By: #### U ARFX #### [address] [address] Specific gravity (U) [Rel density] 1.009 Normal 1.005 - 1.035 [facility] Comment on above: Performed By: #### U ARFX #### [address] [address] Urobilinogen (U) [Mass/Vol] 2.0 mg/dL High 0.0 - 1.9 [facility] Comment on above: Result Comment: Due to a manufacturing issue, low positive urobilinogen results may be falsely positive. Correlate with urine bilirubin and additional clinical/laboratory findings to assess the risk of hemolytic anemia or liver disease. If clinically indicated, repeat testing with an alternate method is available by contacting the laboratory within 24 hours. . Some pigments and medications may cause a false positive urobilinogen. Performed By: #### U ARFX #### [place] [id number] URINE CULTURE,BACTERIALon URINE CULTURE,BACTERIAL PATIENT: MIK SHELTON LOCATION: [facility]#: [id number] : 43 AGE: SEX: F ORDERED BY: LAZARO HANDY SOURCE: URINE COLLECTED: 02/10/23 10:38 ANTIBIOTICS AT DILIA.: RECEIVED : 02/10/23 23:23 SITE: R E S U L T S URINE CULTURE,BACTERIAL FINAL 02/12/23 08:56 MIXED URETHRAL DHRUV. Normal [facility] Comment on above: Performed By: #### T [facility] #### [place] [id number] Basophil percentageOrdered B y: Dr. Alejo on 11-26-2022 Ammonia (P) [Moles/Vol] 29.0 umol/L 11-32 [facility] Bilirubin [Mass/Vol] 0.20 mg/dL 0.20-1.00 [facility] Comment on above: For patients on eltr ombopag therapy, use of Dimension Kirby TBIL is not recommended. Chloride [Moles/Vol] 96 mmol/L 98-107 [facility] Glucose [Mass/Vol] 237 mg/dL 74-106 [facility] Comment on above: Glucose result great er than or equal to 200 mg/dLsuggests DIABETES MELLITUS per A.D.A. criteria. Potassium [Moles/Vol] 3.7 mmol/L 3.5-5.1 [facility] Protein [Mass/Vol] 6.6 g/dL 6.4-8.2 [facility] Sodium [Moles/Vol] 130 mmol/L 136-145 [facility] WBC (Bld) [#/Vol] 8.6 10*3/uL 4.4-11.0 [facility] Blood erythrocytes count (nu mber/volume)Ordered By: Dr. Alejo on 11-26-2022 RBC (Bld) [#/Vol] 3.49 10*6/uL 4.2-5.4 [facility] Blood hemoglobin measurement (mass/volume)Ordered By: Dr. Alejo on 11-26-2022 Hemoglobin (Bld) [Mass/Vol] 11.1 g/dL 12.0-15.0 [facility] Blood platelet mean volumeOr dered By: Dr. Alejo on 11-26-2022 Platelet mean volume (Bld) [Entitic vol] 9.8 fL 6.2-12.0 [facility] Determination of erythrocyte mean corpuscular volume (MCV)Ordered By: Dr. Alejo on 11-26-2022 MCV (RBC) [Entitic vol] 95.4 fL 81-99 [facility] Hematocrit Auto (Bld) [Volum e fraction]Ordered By: Dr. Alejo on 11-26-2022 Hematocrit (Bld) [Volume fraction] 33.3 % 37-47 [facility] Laboratory - Chemistry and C hemistry - challengeOrdered By: Dr. Alejo on 11-26-2022 ALP [Catalytic activity/Vol] 91 U/L 45-117 [facility] ALT [Catalytic activity/Vol] 37 U/L 13-56 [facility] CO2 [Moles/Vol] 28.0 mmol/L 21.0-32.0 [facility] Cobalamin (Vitamin B12) [Mass/Vol] 1533 pg/mL 211-911 [facility] Free T4 [Mass/Vol] 1.00 ng/dL 0.76-1.46 [facility] Globulin (S) [Mass/Vol] 3.8 g/dL 2.2-4.2 [facility] Urea nitrogen/Creatinine [Mass ratio] 17.6 mg/mg 10-20 [facility] Laboratory - Hematology and Cell countsOrdered By: Dr. Alejo on 11-26-2022 Erythrocyte distribution width (RBC) [Entitic vol] 48.0 fL 35.1-43.9 [facility] Erythrocyte distribution width (RBC) [Ratio] 13.8 % 11.6-14.6 [facility] MCH (RBC) [Entitic mass] 31.8 pg 27.0-32.0 [facility] Laboratory - Hematology and Cell countson 11-26-2022 HbA1c (Bld) [Mass fraction] 5.3 % 4.2-6.3 [facility] MCHC Auto (RBC) [Mass/Vol]Or dered By: Dr. Alejo on 11-26-2022 MCHC (RBC) [Mass/Vol] 33.3 g/dL 32-36 [facility] No Panel InformationOrdered By: Dr. Alejo on 11-26-2022 Carbamazepine (Tegretol) Level 7.5 ug/mL 4.0-12.0 [facility] Estimated GFR (MDRD) Amer 118 mL/min >60 [facility] Comment on above: GFR Calc Estimated GFR (MDRD) Non-Af Amer 98 mL/min >60 [facility] Comment on above: Non- GFR Calc Hepatitis A IgM Antibody Negative Negative [facility] Hepatitis B Core IgM Antibody Negative Negative [facility] Hepatitis C Antibody (EIA) Non-Reactive Non Reactive [facility] Hepatitis C Antibody Comment Comment . [facility] Comment on above: Not infected with HC V unless early or acute infection issuspected (which may be delayed in an immunocompromisedindividual), or other evidence exists to indicate HCVinfection. Thyroid Stimulating Hormone (TSH) 1.17 uIU/mL 0.358-3.74 [facility] Whole Blood Vitamin B1 Level 156.5 nmol/L 66.5-200.0 [facility] Comment on above: Performed at: [facility] [address] [id number] Director: Hamzah Hernandez PhD, Phone: [id number] at: [employer] [facility] [id number] Director: Martha Conti MD, Phone: [phone] Platelets bldOrdered By: Dr. Alejo on 11-26-2022 Platelets (Bld) [#/Vol] 344 10*3/uL 150-450 [facility] Serum or plasma albumin amparo urement (mass/volume)Ordered By: Dr. Alejo on 11-26-2022 Albumin [Mass/Vol] 2.8 g/dL 3.2-5.0 [facility] Serum or plasma albumin/glob ulin mass ratioOrdered By: Dr. Alejo on 11-26-2022 Albumin/Globulin [Mass ratio] 0.7 {ratio} 0.9-2.4 [facility] Serum or plasma calcitriol m easurement (mass/volume)Ordered By: Dr. Alejo on 11-26-2022 1,25-dihydroxyvitamin D3 [Mass/Vol] pg/mL 24.8-81.5 [facility] Comment on above: Performed at: [facility] [address] [id number] Director: Martha Conti MD, Phone: [phone] Serum or plasma calcium amparo urement (mass/volume)Ordered By: Dr. Alejo on 11-26-2022 Calcium [Mass/Vol] 8.5 mg/dL 8.5-10.1 [facility] Serum or plasma creatinine m easurement (mass/volume)Ordered By: Dr. Alejo on 11-26-2022 Creatinine [Mass/Vol] 0.63 mg/dL 0.55-1.02 [facility] Comment on above: The validity of the calculated GFR & GFRAA in patients over 70 years has not been determined. Clinical correlation is essential. Serum or plasma folate measu rement (mass/volume)Ordered By: Dr. Alejo on 11-26-2022 Folate [Mass/Vol] 39.40 ng/mL 3.1-55.4 [facility] Serum or plasma hepatitis B virus surface antigen detection by immunoassayOrdered By: Dr. Alejo on 11-26-2022 HBV surface Ag IA Ql Negative Negative [facility] Serum or plasma urea nitroge n measurement (mass/volume)Ordered By: Dr. Alejo on 11-26-2022 Urea nitrogen [Mass/Vol] 11 mg/dL 7-18 [facility] Thin prep Papanicolaou smear with manual screeningOrdered By: Dr. Alejo on 11-26-2022 Thin prep Papanicolaou smear with manual screening 23 U/L 15-37 [facility] Thin prep Papanicolaou smear with manual screening 6 5-15 [facility] Laboratory - Microbiology an d Antimicrobial susceptibilityOrdered By: Mai Olivares on 08-15-2022 SARS-CoV-2 (COVID-19) RNA ELGIN+probe Ql (Unsp spec) Not detected Not Detect [facility] Comment on above: Normal Reference Ran ge: Not DetectedMethod:(RT-PCR) real-time reverse transcriptase PCRLuminex DAVID Instrument*The Food and Drug Administration (FDA) has issued an Emergency Use Authorization (EAU) for the DAVID SARS-CoV-2 Assay for the rapid detection of the virus that causes COVID-19. This test has been validated, but the FDAs independent review of this validation is pending.*Negative results do not preclude infection and should not be used as the sole basis for treatment or patient management. Optimum specimen types and timing for peak viral levels during infections caused by SARS-CoV-2 have not been determined. Collection of multiple specimens from the same patient may be necessary to detect the virus. The possibility of a false negative result should be considered if the patient has clinical presentation or has had recent exposure. Clinical Event Noteon 2022 Clinical Event Note Clinical Event: Clinical Event Note: DetailsI was called by the discharge nurse regarding the discharge plan and if the patient needs an MRI order. I reviewed the discharge summary, the provider did not think the patient needed an MRI. She is also at the baseline functionality. She did have a CT scan of brain during admission negative for any new changes. Patient roustabout confirmed that he would be able to make an appointment with a neurologist and follow-up closely. I have not had a chance to talk to the patient or the roustabout in detail. I saw the patient and the roustabout in the hallway while they are exiting the hospital. She was sitting on a wheelchair, covered by raincoat. She was not responding much but awake and looking around aimlessly .Please refer to discharge summary and other progress notes for full care plan. Objective Information T PRBPMAPSpO2 [id number]% Date/Time12 7: 7: 7: 7: 7:51 Range(36C - 36.5C ) (69 - 86 ) (19 - 22 ) (108 - 152 )/ (63 - 81 ) (90% - 98% ) As of 10-Aug-2022 12:20:00, patient is on 2 L/min of oxygen Electronic Signatures: Erin Jacques) (Signed 11-Aug-2022 09:51) Authored: Clinical Event Note Last Updated: 11-Aug-2022 09:51 by Erin Jacques) Normal [facility] GLUCOSE-POCTon 08-11-2022 Glucose [Mass/Vol] 93 mg/dL Normal 74 - 99 [facility] Comment on above: Performed By: #### G LAURI #### [place] [id number] [place] [id number] Discharge [id number] Discharge Profile2 Discharge Orders: Anticipated Discharge Date: Anticipated Discharge [id number] DNAR: Code Status at Discharge: Full Code Diet: Dietlow fat, diabetic/carbohydrate counted Provider FINAL REVIEW of Orders: Final Review: Final Review of Medication Reconciliation and Orders Completedby Physician Reviewing ProviderFélix Nicholas MD at 10-Aug-2022 17:00:49 Appointments: Follow-Up Appointment 01: Physician/Dept/ServiceP [facility] Physician Reason for Referralreferral for neurology consult Call to Schedule in2 weeks Electronic Signatures: Félix Cartwright) (Signed 10-Aug-2022 17:09) Authored: Discharge Orders, Provider FINAL REVIEW of Orders, Appointments, Gold Form - Panel Lay Up Worker Summary Sonja Ortega (RN) (Signed 11-Aug-2022 08:43) Authored: Discharge Orders, Appointments Last Updated: 11-Aug-2022 08:43 by Sonja Ortega (RN) [facility] GLUCOSE-POCTon 08-10-2022 Glucose [Mass/Vol] 120 mg/dL High 74 - 99 [facility] Comment on above: Performed By: #### C OV19 #### [address] [address] Performed By: #### G LAURI #### [place] [id number] Glucose [Mass/Vol] 118 mg/dL High 74 - [address] [place] [address] Comment on above: Performed By: #### C OV19 #### [address] [address] Glucose [Mass/Vol] 97 mg/dL Normal 74 - [address] [place] [address] Comment on above: Performed By: #### G LAURI #### [address] [address] Glucose [Mass/Vol] 87 mg/dL Normal 74 - [address] [place] [address] Comment on above: Performed By: #### G LAURI #### [address] [address] Glucose [Mass/Vol] 82 mg/dL Normal 74 - [address] [place] [address] Comment on above: Performed By: #### C OV19 #### [address] [address] Glucose [Mass/Vol] 120 mg/dL High 74 - [address] [place] [address] Comment on above: Performed By: #### G LAURI #### [address] [address] Order Reconciliationon 08-10 Order Reconciliation Page 1 Discharge Reconciliation Document Reconciliation Type: Discharge requested on behalf of Félix Cartwright (Physician) done by Félix Cartwright) Discharge - Reconciliation: 10-Aug-2022 17:09 by: Félix Cartwright) Home Medications [facility] MEDICATIONS AT DISCHARGE DateReconciliation Comment/ Additional Information alendronate 70 mg oral tablet 1 tab(s) orally once a week 08-Aug-2022 21:57 alendronate 70 mg oral tablet 1 tab(s) orally once a week 08-Aug-2022 21:57 alendronate 70 mg oral tablet is continued as alendronate 70 mg oral tablet ARIPiprazole 10 mg oral tablet 1 tab(s) orally once a day 09-Aug-2022 02:48 ARIPiprazole 10 mg oral tablet 1 tab(s) orally once a day 09-Aug-2022 02:48 ARIPiprazole 10 mg oral tablet is continued as ARIPiprazole 10 mg oral tablet bisacodyl 10 mg rectal suppository rectal every 48 hours, As Needed 09-Aug-2022 02:53 bisacodyl 10 mg rectal suppository rectal every 48 hours, As Needed 09-Aug-2022 02:53 bisacodyl 10 mg rectal suppository is continued as bisacodyl 10 mg rectal suppository calcium carbonate 600 mg oral tablet, chewable orally 2 times a day 09-Aug-2022 02:55 calcium carbonate 600 mg oral tablet, chewable orally 2 times a day 09-Aug-2022 02:55 calcium carbonate 600 mg oral tablet, chewable is continued as calcium carbonate 600 mg oral tablet, chewable carBAMazepine 100 mg oral tablet, chewable 1 tab(s) orally every 12 hours 09-Aug-2022 11:24 carBAMazepine 100 mg oral tablet, chewable 1 tab(s) orally every 12 hours 09-Aug-2022 11:24 carBAMazepine 100 mg oral tablet, chewable is continued as carBAMazepine 100 mg oral tablet, chewable diazePAM 2 mg oral tablet 0.5 tab(s) orally every 12 hours 09-Aug-2022 11:33 diazePAM 2 mg oral tablet 0.5 tab(s) orally every 12 hours 09-Aug-2022 11:33 diazePAM 2 mg oral tablet is continued as diazePAM 2 mg oral tablet guaiFENesin 100 mg/5 mL oral liquid 10 milliliter(s) orally every 4 hours 08-Aug-2022 21:59 guaiFENesin 100 mg/5 mL oral liquid 10 milliliter(s) orally every 4 hours 08-Aug-2022 21:59 guaiFENesin 100 mg/5 mL oral liquid is continued as guaiFENesin 100 mg/5 mL oral liquid hydrOXYzine hydrochloride 25 mg oral tablet 1 tab(s) orally 4 times a day 08-Aug-2022 21:59 hydrOXYzine hydrochloride 25 mg oral tablet 1 tab(s) orally 4 times a day 08-Aug-2022 21:59 hydrOXYzine hydrochloride 25 mg oral tablet is continued as hydrOXYzine hydrochloride 25 mg oral tablet insulin lispro 100 units/mL injectable solution Use as directed per sliding scale 09-Aug-2022 11:37 insulin lispro 100 units/mL injectable solution Use as directed per sliding scale 09-Aug-2022 11:37 insulin lispro 100 units/mL injectable solution is continued as insulin lispro 100 units/mL injectable solution levothyroxine 50 mcg (0.05 mg) oral capsule 1 cap(s) orally once a day 08-Aug-2022 22:01 levothyroxine 50 mcg (0.05 mg) oral capsule 1 cap(s) orally once a day 08-Aug-2022 22:01 levothyroxine 50 mcg (0.05 mg) oral capsule is continued as levothyroxine 50 mcg (0.05 mg) oral capsule lisinopril 30 mg oral tablet 1 tab(s) orally once a day 08-Aug-2022 22:01 lisinopril 30 mg oral tablet 1 tab(s) orally once a day 08-Aug-2022 22:01 lisinopril 30 mg oral tablet is continued as lisinopril 30 mg oral tablet lovastatin 20 mg oral tablet 1 tab(s) orally once a day 08-Aug-2022 22:03 lovastatin 20 mg oral tablet 1 tab(s) orally once a day 08-Aug-2022 22:03 lovastatin 20 mg oral tablet is continued as lovastatin 20 mg oral tablet metFORMIN 500 mg oral tablet, extended release 1 tab(s) orally once a day 09-Aug-2022 03:03 metFORMIN 500 mg oral tablet, extended release 1 tab(s) orally once a day 09-Aug-2022 03:03 metFORMIN 500 mg oral tablet, extended release is continued as metFORMIN 500 mg oral tablet, extended release Multiple Vitamins with Minerals oral capsule orally every 24 hours 09-Aug-2022 02:58 Multiple Vitamins with Minerals oral capsule orally every 24 hours 09-Aug-2022 02:58 Multiple Vitamins with Minerals oral capsule is continued as Multiple Vitamins with Minerals oral capsule Tylenol 8 Hour 325 milligram(s) orally every 6 hours, As Needed 09-Aug-2022 02:46 Tylenol 8 Hour 325 milligram(s) orally every 6 hours, As Needed 09-Aug-2022 02:46 Tylenol 8 Hour is continued as Tylenol 8 Hour Vitamin B12 1000 mcg oral tablet 1 tab(s) orally once a day 09-Aug-2022 03:02 Vitamin B12 1000 mcg oral tablet 1 tab(s) orally once a day 09-Aug-2022 03:02 Vitamin B12 1000 mcg oral tablet is continued as Vitamin B12 1000 mcg oral tablet Vitamin D3 50 mcg (2000 intl units) oral tablet 1 tab(s) orally once a day 09-Aug-2022 03:02 Vitamin D3 50 mcg (2000 intl units) oral tablet 1 tab(s) orally once a day 09-Aug-2022 03:02 Vitamin D3 50 mcg (2000 intl units) oral tablet is continued as Vitamin D3 50 mcg (2000 intl units) oral tablet Current OrdersDateHOME MEDICATIONS AT DISCHARGE DateReconciliation Comment/ Additional (more content not included)... Normal [facility] AMMONIAon 08-09-2022 Ammonia (P) [Moles/Vol] 31 umol/L Normal [facility] Comment on above: Result Comment: . REFERENCE VALUES DAY 1 to DAY 7 <110 DAY 8 to DAY 14 < 90 DAY 15 to ADULT 16-53 Performed By: #### G LAURI #### [address] [address] ARTERIAL BLOOD GASon 022 APPARATUS Cannula Normal [facility] Comment on above: Performed By: #### C OV19 #### [address] [address] BASE EXCESS-BLOOD 4.9 mmol/L High -2.0 - 3.0 [facility] Comment on above: Performed By: #### C OV19 #### [address] [address] BICARB, CALCULATED 31.4 mmol/L High 22.0 - 26.0 [facility] Comment on above: Performed By: #### C OV19 #### [place] [address] FIO2 24 % Normal [facility] Comment on above: Performed By: #### C OV19 #### [place] [address] OXY HGB 97.2 % Normal 94.0 - 98.0 [facility] Comment on above: Performed By: #### C OV19 #### [place] [address] Oxygen (Bld) [Partial pressure] 113 mm[Hg] High 85 - 95 [facility] Comment on above: Performed By: #### C OV19 #### [place] [address] PATIENT TEMPERATURE 37.0 degrees C Normal [facility] Comment on above: Result Comment: NOTE : PATIENT RESULTS ARE NOT CORRECTED FOR TEMPERATURE. Performed By: #### C OV19 #### [place] [address] PCO2 53 mmHg High 38 - 42 [facility] Comment on above: Performed By: #### C OV19 #### [place] [address] pH (Bld) 7.38 [pH] Normal 7.38 - 7.42 [facility] Comment on above: Performed By: #### C OV19 #### [place] [address] SO2 99 % Normal 94 - 100 [facility] Comment on above: Performed By: #### C OV19 #### [place] [address] Admission Risk Screen - Adul ton 08-09-2022 Admission Risk Screen - Adult Allergies: Allergies: penicillin: Unknown amoxicillin: Unknown Patient Verification: New W ID Band Applied in my Departmentyes Patient Identity Verified Byother:; nurse ID Band FULL Name, include Middle, spelling matches patient's ID used for verificationyes ID Band Matches Patient ID used for Verficationyes ID Band MRN Matches EMR MRNyes Visitor Restriction: Coronavirus Visitor Restriction: Reasonable restrictions to in-person visitors will be observed due to current coronavirus pandemic. Travel History: COVID-19 Screening Completedno exposure or symptoms(1) Travel or Exposure Past 30 DaysNO travel to International locations in the past 30 days Ebola AlertFor Ebola-like Symptoms: Isolate Patient and Notify Provider/Wildlife Biostation Research Ecologist For Contact: Notify Provider/Wildlife Biostation Research Ecologist Advance Directive: Advance Directive/DNRno (2) Advance Directive Information Givenpatient/family declined Bell Fall Screen: History of falling (immediate or previous)no (0) Secondary Diagnosisyes (15) Intravenous Therapy/ Heparin/Saline Lockyes (20) Gait/Transferringimpair ed (20) Ambulatory Aidscrutches/walker/can e (15) Mental Statusoverestimates/for gets limitations (15) Score: Low risk (<25). Moderate risk (25-44). High risk (>44).85 Bell InterventionsHIGH INTERVENTIONS *Low and Moderate Interventions Plus: * supervised toileting at all times Family Violence Screen: Are you or have you been threatened or abused physically, emotionally, or sexually by anyoneunable to assess Do you feel UNSAFE going back to the place where you are livingunable to assess Clinical assessment: Are there any apparent signs of injuries/behaviors that could be related to abuse/neglectunable to assess Social Service Consult for abuse/neglect needed this visitno Functional Screen: Functional Screen: In the recent/past 2-4 weeks, patient or family have noticedunable to assess AM-PAC- Basic Mobility/Daily Activity: Patient baseline bedboundno chairfast Turning from your back to your side while in a flat bed without using bedrailstotal Moving from lying on your back to sitting on the side of a flat bed without using bedrailstotal Moving to and from bed to chair (including a wheelchair)total Standing up from a chair using your arms (e.g. wheelchair or bedside chair) total To walk in hospital roomtotal Climbing 3-5 steps with railingtotal Basic Mobility - Total Score6 Putting on and taking off regular lower body clothingtotal Bathing (including washing, rinsing, drying)total Putting on and taking off regular upper body clothingtotal Toileting, which includes using toilet, bedpan or urinaltotal Taking care of personal grooming such as brushing teethtotal Eating Mealstotal Daily Activity - Total Score6 Learning Assessment (Patient): Patient is Able to be Assessed for Learningno Reason Unable to Assessunresponsive Learning Assessment (Other Learner): Other learner availableno Depression Screen: During the past month, have you often been bothered by feeling down, depressed or hopelessunable to assess During the past month, have you often had little interest or pleasure in doing thingsunable to assess Have you had any thoughts of harming anyone elseunable to assess [place] Suicide: Risk Screen Not Applicable/Able to Answerable to be screened In the Past Month: Have you wished you were or could go to sleep and not wake upno(1) In the Past Month: Have you had any actual thoughts of killing yourself no(1) Lifetime: Have you ever done, started to do, or prepared to do anything to end your lifeno [place] Suicide Risknegative Adult Nutrition Screen: Have you recently lost weight without tryingno Have you been eating poorly because of a decreased appetiteno Malnutrition Screening Tool Score0 Malnutrition Screening Tool RiskMST = 0 or 1 Not at risk. Eating well with little or no weight loss Nutrition Consult needed this visitno Can Patient Participate in Room Serviceno Patient requires Paper Dishes/Plastic Utensilsno Pain Screen: Pain ScaleCognitively Impaired Pain Assessment Tool Pain Scale Educationunable to educate Reasons for inability to educatept unresponsive Current Pain Levelunable to assess Acceptable Pain Levelunable to assess Expression of Pain (nonverbal)none Lifestyle Changes/Adaptations in Response to Painno change Barriers to Reporting Painnone Chronic Painno Spiritual Screen: Are there any cultural, spiritual, sabianism practices/values/needs that are important for us to knowno Do you want a visit/item from [facility] [place] Would you like your Engine Watchman/Cyanide Furnace Operator notifiedno CAGE: Is this an injured patient at a Trauma Center ([facility]/[place] a/[place]): no (2) Vaccinations: Vaccination - Influenza Vaccination Screen: Is it flu season (between and Oct (more content not included)... Normal [facility] BASIC METABOLIC PANELon 12-3 Calcium [Mass/Vol] 8.3 mg/dL Low 8.6 - 10.3 [facility] Comment on above: Result Comment: Conf irmed by repeat analysis Performed By: #### C OV19 #### [address] [address] Anion gap [Moles/Vol] 9 mmol/L Low 10 - 20 [facility] Comment on above: Performed By: #### C OV19 #### [address] [address] Chloride [Moles/Vol] 110 mmol/L High 98 - 107 [facility] Comment on above: Performed By: #### C OV19 #### [address] [address] Creatinine [Mass/Vol] 0.90 mg/dL Normal 0.50 - 1.05 [facility] Comment on above: Performed By: #### C OV19 #### [address] [address] GFR/1.73 sq M.predicted among non-blacks MDRD (S/P/Bld) [Vol rate/Area] 65 mL/min/{1.73_m2} Normal >90 [facility] Comment on above: Result Comment: CALC ULATIONS OF ESTIMATED GFR ARE PERFORMED USING THE 2020 CKD-EPI STUDY REFIT EQUATION WITHOUT THE RACE VARIABLE FOR THE IDMS-TRACEABLE CREATININE METHODS. https://jasn.asnjournals.org/content//ASN.2020 625864 Performed By: #### C OV19 #### [address] [address] Glucose [Mass/Vol] 112 mg/dL High 74 - 99 [facility] Comment on above: Performed By: #### C OV19 #### [address] [address] HCO3 (Bld) [Moles/Vol] 30 mmol/L Normal 21 - 32 [facility] Comment on above: Performed By: #### C OV19 #### [address] [address] Potassium [Moles/Vol] 4.2 mmol/L Normal 3.5 - 5.3 [facility] Comment on above: Performed By: #### C OV19 #### [address] [place] [address] Sodium [Moles/Vol] 145 mmol/L Normal 136 - 145 [facility] Comment on above: Performed By: #### C OV19 #### [address] [address] Urea nitrogen [Mass/Vol] 39 mg/dL High 6 - 23 [facility] Comment on above: Performed By: #### C OV19 #### [place] [id number] CBCon 08-09-2022 Erythrocyte distribution width (RBC) [Ratio] 13.4 % Normal 11.5 - 14.5 [facility] Comment on above: Performed By: #### G LAURI #### [place] [id number] Hematocrit (Bld) [Volume fraction] 32.4 % Low 36.0 - 46.0 [facility] Comment on above: Performed By: #### G LAURI #### [place] [id number] Hemoglobin (Bld) [Mass/Vol] 9.8 g/dL Low 12.0 - 16.0 [facility] Comment on above: Performed By: #### G LAURI #### [place] [id number] MCHC (RBC) [Mass/Vol] 30.2 g/dL Low 32.0 - 36.0 [facility] Comment on above: Performed By: #### G LAURI #### [place] [id number] MCV (RBC) [Entitic vol] 101 fL High 80 - 100 [facility] Comment on above: Performed By: #### G LAURI #### [place] [id number] Platelets (Bld) [#/Vol] 236 10*3/uL Normal 150 - 450 [facility] Comment on above: Performed By: #### G LAURI #### [place] [id number] RBC 3.22 x10E12/L Low 4.00 - 5.20 [facility] Comment on above: Performed By: #### G LAURI #### [address] [address] WBC (Bld) [#/Vol] 7.9 10*3/uL Normal 4.4 - 11.3 [facility] Comment on above: Performed By: #### G LAURI #### [address] [address] CBC AND DIFFERENTIALon 08-09 % AUTOMATED IMMATURE GRAN 0.2 % Normal 0.0 - 0.9 [facility] Comment on above: Result Comment: Arti ture Granulocyte Count (IG) includes promyelocytes, myelocytes and metamyelocytes but does not include bands. Percent differential counts (%) should be interpreted in the context of the absolute cell counts (cells/L). Performed By: #### T RPHS #### [address] [address] Basophils (Bld) [#/Vol] 0.04 10*3/uL Normal 0.00 - 0.1 0 [facility] Comment on above: Performed By: #### T RPHS #### [address] [address] Basophils/100 WBC (Bld) 0.5 % Normal 0.0 - 2.0 [facility] Comment on above: Performed By: #### T RPHS #### [address] [address] Eosinophils (Bld) [#/Vol] 0.47 10*3/uL High 0.00 - 0.40 [facility] Comment on above: Performed By: #### T RPHS #### [address] [address] Eosinophils/100 WBC (Bld) 5.4 % Normal 0.0 - 6.0 [facility] Comment on above: Performed By: #### T RPHS #### [address] [address] Erythrocyte distribution width (RBC) [Ratio] 13.4 % Normal 11.5 - 14.5 [facility] Comment on above: Performed By: #### T RPHS #### [address] [address] Hematocrit (Bld) [Volume fraction] 36.5 % Normal 36.0 - 46.0 [facility] Comment on above: Performed By: #### T RPHS #### [address] [address] Hemoglobin (Bld) [Mass/Vol] 11.4 g/dL Low 12.0 - 16.0 [facility] Comment on above: Performed By: #### T RPHS #### [address] [address] Lymphocytes (Bld) [#/Vol] 2.34 10*3/uL Normal 0.80 - 3.00 [facility] Comment on above: Performed By: #### T RPHS #### [address] [address] Lymphocytes/100 WBC (Bld) 27.1 % Normal 13.0 - 44.0 [facility] Comment on above: Performed By: #### T RPHS #### [address] [address] MCHC (RBC) [Mass/Vol] 31.2 g/dL Low 32.0 - 36.0 [facility] Comment on above: Performed By: #### T RPHS #### [address] [address] MCV (RBC) [Entitic vol] 99 fL Normal 80 - 100 [facility] Comment on above: Performed By: #### T RPHS #### [address] [address] Monocytes (Bld) [#/Vol] 0.59 10*3/uL Normal 0.05 - 0.8 0 [facility] Comment on above: Performed By: #### T RPHS #### [address] [address] Monocytes/100 WBC (Bld) 6.8 % Normal 2.0 - 10.0 [facility] Comment on above: Performed By: #### T RPHS #### [address] [address] Neutrophils (Bld) [#/Vol] 5.18 10*3/uL Normal 1.60 - 5.50 [facility] Comment on above: Result Comment: Perc ent differential counts (%) should be interpreted in the context of the absolute cell counts (cells/L). Performed By: #### T RPHS #### [address] [address] Neutrophils/100 WBC (Bld) 60.0 % Normal 40.0 - 80.0 [facility] Comment on above: Performed By: #### T RPHS #### [address] [address] Platelets (Bld) [#/Vol] 289 10*3/uL Normal 150 - 450 [facility] Comment on above: Performed By: #### T RPHS #### [address] [address] [address] RBC 3.68 x10E12/L Low 4.00 - 5.20 [facility] Comment on above: Performed By: #### T RPHS #### [address] [address] WBC (Bld) [#/Vol] 8.6 10*3/uL Normal 4.4 - 11.3 [facility] Comment on above: Performed By: #### T RPHS #### [address] [address] CHEST 1 VIEWon 08-09-2022 CHEST 1 VIEW Patient Name: MIK SHELTON STUDY: CHEST 1 VIEW; 08/08/2022 10:12 pm INDICATION: ams . COMPARISON: None. ACCESSION NUMBER(S): [id number] ORDERING CLINICIAN: CORKY YOUNGER FINDINGS: The cardiomediastinal silhouette and pulmonary vasculature are within normal limits. Linear atelectasis at the left lung base. No consolidation, pleural effusion or pneumothorax. IMPRESSION: No acute cardiopulmonary process. Electronically signed by: NABILA GIARLDO MD Normal [facility] COMPREHENSIVE PANELon 12-31- 2022 Albumin [Mass/Vol] 3.7 g/dL Normal 3.4 - 5.0 [facility] Comment on above: Performed By: #### C MP #### [address] [address] ALP [Catalytic activity/Vol] 84 U/L Normal 33 - 136 [facility] Comment on above: Performed By: #### C MP #### [address] [address] ALT [Catalytic activity/Vol] 30 U/L Normal 7 - 45 [facility] Comment on above: Result Comment: Stephanie ents treated with Sulfasalazine may generate falsely decreased results for ALT. Performed By: #### C MP #### [address] [address] Anion gap [Moles/Vol] 13 mmol/L Normal 10 - 20 [facility] Comment on above: Performed By: #### C MP #### [place] [id number] AST [Catalytic activity/Vol] 21 U/L Normal 9 - 39 [facility] Comment on above: Performed By: #### C MP #### [address] [address] Bilirubin [Mass/Vol] 0.3 mg/dL Normal 0.0 - 1.2 [facility] Comment on above: Performed By: #### C MP #### [address] [address] Calcium [Mass/Vol] 9.2 mg/dL Normal 8.6 - 10.3 [facility] Comment on above: Performed By: #### C MP #### [address] [address] Chloride [Moles/Vol] 104 mmol/L Normal 98 - 107 [facility] Comment on above: Performed By: #### C MP #### [address] [address] Creatinine [Mass/Vol] 0.92 mg/dL Normal 0.50 - 1.05 [facility] Comment on above: Performed By: #### C MP #### [address] [address] GFR/1.73 sq M.predicted among non-blacks MDRD (S/P/Bld) [Vol rate/Area] 64 mL/min/{1.73_m2} Normal >90 [facility] Comment on above: Result Comment: CALC ULATIONS OF ESTIMATED GFR ARE PERFORMED USING THE 2020 CKD-EPI STUDY REFIT EQUATION WITHOUT THE RACE VARIABLE FOR THE IDMS-TRACEABLE CREATININE METHODS. https://jasn.asnjournals.org/content/early//ASN.2020 030950 Performed By: #### C MP #### [address] [address] Glucose [Mass/Vol] 140 mg/dL High 74 - 99 [facility] Comment on above: Performed By: #### C MP #### [address] [address] HCO3 (Bld) [Moles/Vol] 32 mmol/L Normal 21 - 32 [facility] Comment on above: Performed By: #### C MP #### [address] [address] Potassium [Moles/Vol] 4.5 mmol/L Normal 3.5 - 5.3 [facility] Comment on above: Performed By: #### C MP #### [address] [address] Protein [Mass/Vol] 6.6 g/dL Normal 6.4 - 8.2 [facility] Comment on above: Performed By: #### C MP #### [address] [address] Sodium [Moles/Vol] 144 mmol/L Normal 136 - 145 [facility] Comment on above: Performed By: #### C MP #### [address] [address] Urea nitrogen [Mass/Vol] 35 mg/dL High 6 - 23 [facility] Comment on above: Performed By: #### C MP #### [address] [address] CORONAVIRUS 2019 BY PCRon SARS-CoV-2 (COVID-19) RNA ELGIN+probe Ql (Unsp spec) Not detected Normal Not Detected [facility] Comment on above: Result Comment: . This test has received FDA Emergency Use Authorization (EUA) and has been verified by [facility]. This test is only authorized for the duration of time that circumstances exist to justify the authorization of the emergency use of in vitro diagnostic tests for the detection of SARS-CoV-2 virus and/or diagnosis of COVID-19 infection under section 564(b)(1) of the Act, 21 U.S.C. 360bbb-3(b)(1), unless the authorization is terminated or revoked sooner. [facility] is certified under CLIA-88 as qualified to perform high complexity testing. Testing is performed in the [facility] laboratory located at [address] [place] [address]. SARS-CoV-2/Flu/RSV Multiplex Test: Fact sheet for providers: https://www.fda.gov/media/701831/download Fact sheet for patients: https://www.fda.gov/media/014569/download Performed By: #### C OV19 #### [place] [address] Lab Specimen Source Nasal, Nasopharyngeal Normal [facility] Comment on above: Performed By: #### C OV19 #### [place] [address] CT HEAD WO CONTRASTon 2021 CT HEAD WO CONTRAST Patient Name: MIK SHELTON STUDY: CT HEAD WO CONTRAST; 08/08/2022 10:42 pm INDICATION: ams . COMPARISON: None. ACCESSION NUMBER(S): [id number] ORDERING CLINICIAN: CORKY YOUNGER TECHNIQUE: Noncontrast axial CT images of head were obtained with coronal and sagittal reconstructed images. FINDINGS: BRAIN PARENCHYMA: There is severe bifrontal gliosis and encephalomalacia involving subcortical white matter and overlying cortex. Gliosis also extends into the bilateral subinsular white matter. Aside from the aforementioned, the remainder of the cerebral hemispheric volume is within normal limits for age. There is severe atrophy of the infratentorial structures. No acute intraparenchymal hematoma, mass effect, or parenchymal evidence of an acute large territory ischemic infarct. VENTRICLES and EXTRA-AXIAL SPACES: No acute extra-axial or intraventricular hemorrhage. Ventricles and sulci are age-concordant. PARANASAL SINUSES/MASTOIDS: No hemorrhage or air-fluid levels within the visualized paranasal sinuses. The mastoids are well aerated. CALVARIUM/ORBITS: Bifrontal tess holes are noted. No skull fracture. The orbits and globes are intact to the extent visualized. EXTRACRANIAL SOFT TISSUES: No discernible abnormality. IMPRESSION: No acute intracranial abnormality or calvarial fracture. 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 Correlate with history of remote trauma. Severe infratentorial atrophy. Correlate for any history of long-term anti epileptic drug usage or alcoholism. Electronically signed by: NABILA GIRALDO MD [facility] Covid 19 Resultson 2 SARS-CoV-2 (COVID-19) RNA ELGIN+probe Ql (Unsp spec) NEGATIVE COVID-19 Test Coronaviruses are common world-wide and are the cause of many common colds. SARS-COV2 is a new coronavirus that began circulating worldwide in 2019 so we are calling it COVID-19. It has been estimated that four out of five patients with COVID-19 will recover at home without the need for medical attention. Symptoms of COVID-19 may include cough, fever, shortness of breath, loss of taste or smell and other flu-like symptoms including chills, sore muscles, sore throat, and headache. Severe illness is more common in older people and people with other health problems such as high blood pressure, obesity, and immune system problems. If the test is positive, you have COVID-19. You will be contacted by the ordering physicians office and instructed to remain on home isolation, in accordance with CDC guidelines. You may also be contacted by the [facility] to see if any of your close contacts may have been exposed to the virus and need to quarantine. If the test is negative, you likely do not have COVID-19 at this time, but you still may have a different illness that can spread to other people (like Influenza, or the Flu) and could still be at risk for getting COVID-19. We recommend that you stay away from other people to limit the spread of illness until your symptoms are improving and you are fever-free for 24 hours without the use of fever lowering medications such as acetaminophen or ibuprofen. No test is 100% accurate so if you are still concerned you may have COVID-19, talk to your doctor about the need to continue to stay away from others. Medicines Unless your provider told you not to use the following: Acetaminophen (Tylenol and others) is generally safe. Anti-inflammatory medications, such as Ibuprofen (Advil or Motrin) or Naproxen (Aleve) can also be used. Ubkg-tmc-ofdswyd cough and cold medicines can be used according to the instructions on the package. Some hhdy-ztf-rlxkhmm medicines also contain acetaminophen. Make sure you are not taking more than your recommended dose. For those not hospitalized, there is no specific treatment available for this illness. Antibiotics do not treat Coronaviruses. Follow-Up Follow up with your doctor by scheduling a virtual visit or consider follow-up at one of our urgent care fever clinics. If you are having difficulty breathing, or are very weak and having difficulty standing, this is a medical emergency. Call 911 or have someone take you to the nearest emergency room immediately. If possible, wear a facemask. Additional guidance from the CDC for patients who tested POSITIVE for COVID-19 How to isolate: Isolate yourself in a specific room at home and limit your contact with others. Use a separate bathroom from other members of the household, when possible. Leave home only to get essential medical care. Do not go to work, school or public areas. Avoid using public transportation, ride-sharing, or taxis. Restrict contact with pets and other animals. If you must care for your pet or be around animals while you are sick, wash your hands before and after your interaction and wear a facemask. Make sure that shared spaces in the home have good airflow, such as by an air conditioner or an opened window, weather permitting. Personal Hygiene Procedures: Wear a face mask when in the same room as other people or pets. If a face mask interferes with your breathing, others should wear a mask when sharing space with you. Frequent hand-washing: wash your hands with soap and water for at least 20 seconds. If soap and water are not available, use alcohol-based hand professor of visual arts. Avoid touching your eyes, nose, and mouth with unwashed hands. Household Hygiene Procedures: Avoid sharing personal household items such as dishes, glassware, cups, eating utensils, towels or bedding with other people or pets in your home. After use, these items should be washed with soap and hot water. Disinfect all high-touch surfaces every day with antibacterial cleaning solutions such as Lysol wipes, bleach, cleansers, etc. High-touch surfaces include tabletops, doorknobs, bathroom fixtures, toilets, phones, keyboards, tablets and bedside tables. Immediately clean any surfaces that may have blood, poop or body fluids on them, using antibacterial cleaning solutions such as Lysol wipes, bleach, cleansers, etc. If clothing or bedding come into contact with blood, poop or body fluids, they should be washed immediately. Follow the directions on the laundry detergent and clothing labels but hot water is recommended when possible. Stopping home isolation precautions: If possible, consult your doctor before stopping home isolation precautions. According to the CDC, you can discontinue home isolation precautions when you have met both of these criteria: Your fever and respiratory symptoms have been gone for 24 rolando (more content not included)... Normal [facility] DRUG SCREEN,URINEon 08-09-20 22 AMPHETAMINE SCREEN,U Negative Normal NEGATIVE [facility] Comment on above: Result Comment: CUTO FF LEVEL: 500 NG/ML Cross-reactivity has been reported with high concentrations of the following drugs: buproprion, chloroquine, chlorpromazine, ephedrine, mephentermine, fenfluramine, phentermine, phenylpropanolamine, pseudoephedrine, and propranolol. Performed By: #### G LAURI #### [place] [address] BARBITURATES SCREEN,U Negative Normal NEGATIVE [facility] Comment on above: Result Comment: CUTO FF LEVEL: 200 NG/ML Performed By: #### G LAURI #### [place] [id number] BENZODIAZEPINES SCREEN,U Positive Abnormal NEGATIVE [facility] Comment on above: Result Comment: CUTO FF LEVEL: 200 NG/ML Performed By: #### G LAURI #### [place] [address] CANNABINOIDS SCREEN,U Negative Normal NEGATIVE [facility] Comment on above: Result Comment: CUTO FF LEVEL: 50 NG/ML Performed By: #### G LAURI #### [place] [address] COCAINE METABOLITE SCREEN,U Negative Normal NEGATIVE [facility] Comment on above: Result Comment: CUTO FF LEVEL: 150 NG/ML Performed By: #### G LAURI #### [place] [address] DRUG SCREEN COMMENT SEE BELOW Normal [facility] Comment on above: Result Comment: Drug screen results are presumptive and should not be used to assess compliance with prescribed medication. Contact the performing [facility] laboratory to add-on definitive confirmatory testing if clinically indicated. . Toxicology screening results are reported qualitatively. The concentration must be greater than or equal to the cutoff to be reported as positive. The concentration at which the screening test can detect an individual drug or metabolite varies. The absence of expected drug(s) and/or drug metabolite(s) may indicate non-compliance, inappropriate timing of specimen collection relative to drug administration, poor drug absorption, diluted/adulterated urine, or limitations of testing. For medical purposes only; not valid for forensic use. . Interpretive questions should be directed to the laboratory medical directors. Performed By: #### G LAURI #### [place] [address] FENTANYL SCREEN,URINE Negative Normal NEGATIVE [facility] Comment on above: Result Comment: CUTO FF LEVEL: 5 NG/ML Performed By: #### G LAURI #### [place] [address] METHADONE SCREEN,U Negative Normal NEGATIVE [facility] Comment on above: Result Comment: CUTO FF LEVEL: 150 NG/ML The metabolite E-sijar-paojsijekdgxzc (LAAM) is not detected by this method in concentrations that would be found in the urine of patients on LAAM therapy. Performed By: #### G LAURI #### [place] [address] OPIATES SCREEN,U Negative Normal NEGATIVE [facility] Comment on above: Result Comment: CUTO FF LEVEL: 300 NG/ML The opiate screen does not detect fentanyl, meperidine, or tramadol. Oxycodone is not consistently detected (refer to Oxycodone Screen, Urine result). Performed By: #### G LAURI #### [address] [address] OXYCODONE SCREEN,U Negative Normal NEGATIVE [facility] Comment on above: Result Comment: CUTO FF LEVEL: 100 NG/ML This test will accurately detect both oxycodone and oxymorphone. Performed By: #### G LAURI #### [address] [address] PCP SCREEN,U Negative Normal NEGATIVE [facility] Comment on above: Result Comment: CUTO FF LEVEL: 25 NG/ML Cross-reactivity has been reported with dextromethorphan. Performed By: #### G LAURI #### [place] [id number] Discharge Planning [id number] 1 Discharge Planning Note2 Discharge Planning: Anticipated Discharge [id number] Discharge Planning 08/09/22 @ 1542 pm- SW/CT note- Reviewed chart and SW attempted to call patients [employer] community case manager - however was unable to leave message and the second number was not correct. SW called the number listed on face sheet- however no answer. SW then call patients nurse Mmtmi-[phone] and we did review patient. [facility] [place] [facility] and does have [employer] certified orthotist practice manager Stephanie. Dunbar said that Alise is aware that patient is here at the hospital. Patient is non verbal and is alert to self,dependent for care for all ADLS. BALTA discussed that we do not have a discharge date in place as of yet - but that we will call her once this is established. She did ask if the nurse can call her and explained that SW will ask. Plan is for patient to return to [facility] when ready, SW/CT to follow. Gia Roque CAN TENDER,HOG STOMACH PREPARER 08/10/21@503 pm SW/CT note SW received message that patient is ready for d/c . BALTA did call nurse Saumya -[phone] and she said that she was told that d/c would be on thursday. Explained that SW will have the charge nurse call her and talk with her. BALTA did emeka charge nurse and gave her the phone number of Saumya so that they can discuss d/c plans. Gia WOODARD,HOG STOMACH PREPARER Assessment: Discharge Planning Assessment [id number] Primary Contact Name and NumberAPSI: Alise Gibson [phone](1) Lives Withguardian, non relative(1) Living Arrangements[place] facility[place] [facility]; [facility](1) Stated Reason for Admissionpt found unresponsive(1) Arrived Fromemergency department (1) Resource/Environmental Concernsnone(1) Anticipated [place] [facility](1) Services Anticipated at Transitionnone(1) Discharge Documentation: Code StatusCode Status order at time of discharge: Full Code Electronic Signatures: Gia Ring (KYLAH) (Signed 10-Aug-2022 17:07) Authored: Discharge Planning, Assessment, Discharge Documentation Last Updated: 10-Aug-2022 17:07 by Gia Ring (KYLAH) References: 1. Data Referenced From Patient Profile - Adult v2 09-Aug-2022 01:53 Normal [facility] Glucose [Mass/Vol] 156 mg/dL High 74 - 99 [facility] Comment on above: Performed By: #### G LUARI #### [address] [address] Glucose [Mass/Vol] 87 mg/dL Normal 74 - 99 [facility] Comment on above: Performed By: #### G LAURI #### [address] [address] Glucose [Mass/Vol] 94 mg/dL Normal 74 - 99 [facility] Comment on above: Performed By: #### G LAURI #### [address] [address] Glucose [Mass/Vol] 91 mg/dL Normal 74 - 99 [facility] Comment on above: Performed By: #### G LAURI #### [address] [address] Glucose [Mass/Vol] 94 mg/dL Normal 74 - 99 [facility] Comment on above: Performed By: #### G LAURI #### [address] [address] MAGNESIUMon 08-09-2022 Magnesium [Mass/Vol] 1.94 mg/dL Normal 1.60 - 2.40 [facility] Comment on above: Performed By: #### T RP #### [address] [address] Order Reconciliationon 08-09 Order Reconciliation Page 1 Admission Reconciliation Document Reconciliation Type: ED to Observation requested on behalf of Jeffrey Khoury (Physician) done by Jeffrey Khoury) ED to Observation - Reconciliation: 09-Aug-2022 03:52 by: Jeffrey Khoury) ED to Observation - AutoLinked: 09-Aug-2022 03:52 by: Jeffrey Khoury) Home MedicationsEnteredLast Dose TakenReconciled with current Order Reconciliation Comment/ Additional Information alendronate 70 mg oral tablet 1 tab(s) orally once a [id number] Reviewed and Held ARIPiprazole 10 mg oral tablet 1 tab(s) orally once a day 09-Aug-2022 PM ARIPiprazole Tablet (ABILIFY)DOSE = 15 mg Oral Daily ARIPiprazole 10 mg oral tablet continued as the inpatient order ARIPiprazole bisacodyl 10 mg rectal suppository rectal every 48 hours, As Hgvjzu39-Dzc-7869 Reviewed and Held calcium carbonate 600 mg oral tablet, chewable orally 2 times a gxy29-Dzp-8731 Reviewed and Held carBAMazepine 100 mg oral tablet, chewable orally every 12 qigce46-Smt-0152 carBAMazepine Chewable Tablet, Chewable (TEGRETOL)DOSE = 100 mg Oral 2 Times a DaycarBAMazepine 100 mg oral tablet, chewable continued as the inpatient order carBAMazepine Chewable diazePAM 2 mg oral tablet orally every 12 -Yex-3150 Reviewed and Held guaiFENesin 100 mg/5 mL oral liquid 10 milliliter(s) orally every 4 hours 09-Aug-2022 Reviewed and Held hydrOXYzine hydrochloride 25 mg oral tablet 1 tab(s) orally 4 times a day 09-Aug-2022 hydrOXYzine Hydrochloride (ATARAX) TabletDOSE = 25 mg Oral Every 6 HourshydrOXYzine hydrochloride 25 mg oral tablet continued as the inpatient order hydrOXYzine Hydrochloride (ATARAX) levothyroxine 50 mcg (0.05 mg) oral capsule 1 cap(s) orally once a day 09-Aug-2022 Levothyroxine Tablet (SYNTHROID)DOSE = 50 microgram(s) Oral DailyClinician Notes: Enteral feedings are held 1 hour pre and post dose levothyroxine 50 mcg (0.05 mg) oral capsule continued as the inpatient order Levothyroxine lisinopril 30 mg oral tablet 1 tab(s) orally once a ior88-Cop-9747 Reviewed and Held lispro insulin as per slzeusding scal;r40-Aah-3184 Reviewed and Held lovastatin 20 mg oral tablet 1 tab(s) orally once a gfq14-Tta-6066 Reviewed and Held lovastatin 20 mg oral tablet 1 tab(s) orally once a htm70-Hfs-1403 Atorvastatin Tablet (LIPITOR)DOSE = 40 mg Oral At Bedtimelovastatin 20 mg oral tablet continued as the inpatient order Atorvastatin metFORMIN 500 mg oral tablet, extended release 1 tab(s) orally once a day 09-Aug-2022 metFORMIN Extended Release (GLUCOPHAGE XR) Tablet, Extended ReleaseDOSE = 500 mg Oral DailymetFORMIN 500 mg oral tablet, extended release continued as the inpatient order metFORMIN Extended Release (GLUCOPHAGE XR) Multiple Vitamins with Minerals oral capsule orally every 24 aryca58-Uck-1176 Reviewed and Held Tylenol 8 Hour 325 milligram(s) orally every 6 hours, As Ehcjeq25-Khl-4936 Reviewed and Held Vitamin B12 1000 mcg oral tablet 1 tab(s) orally once a hot69-Ehk-7044 Reviewed and Held Vitamin D3 50 mcg (2000 intl units) oral tablet 1 tab(s) orally once a day 09-Aug-2022 Reviewed and Held Normal [facility] Patient Profile - Adult v2on 08-09-2022 Patient Profile - Adult v2 Profile: Initial Info: How to be AddressedRae Spoken Language PreferredEnglish Source of Informationunable to respond; pts facility nurse here to provide information Stated Reason for Admissionpt found unresponsive Primary Contact Name and NumberAPSI: Alise Gibson [phone] Other Contact Names and NumbersTessa [facility] at [facility] [phone] Nixon cnc machine programmer [phone] Wants Family/Rep Notified of Admissionyes, primary contact email sent from nurse Notify PCPdeferred, unable to answer Informed of Patient Visiting Rightsdeferred Limitations on Visitors/Phone [facility] Patient Belongingsremains with patient Patient Belongings Remaining with Patientclothing; wheelchair/ coat; medical/assistive equipment Medications Brought to Hospitalno General Health: Weight in kg64 kilogram(s)(1) Weight in lms783 pound(s) Weight Methodactual (measured) Scale Typebed Height in cm162.5 centimeter(s)(1) Height in feet5 feet Height in inches3.98 inch(es) Height Methodstated BMI (kg/m2)24.236 square meter [facility] Based Care: How would you like to participate in your careunable to answer What is the number one concern for you during this hospitalizationunable to answer What is the most important thing we can do to support you during this hospitalizationunable to answer Is there anything we need to know to best care for youunable to answer Substance: Smoking Statusnever smoker (2) Alcohol Usedenies(2) Drug Usedenies (2) Drug 2 Usedenies (2) Health Mgmt: Symptoms/Conditions Managed at Homeendocrine Endocrine Symptoms/Conditionsdiab etes Endocrine Managementmanaged Relationship/Environ: Resource/Environmental Concernsnone Primary Source of Support/Comfortnonrelat alaina caregiver Lives Withguardian, non relative Living Arrangements[place]idential facility[place] [facility] [place]; [facility] Services Anticipated at Transitionnone Anticipated [place]idential[place] [facility] [place] Significant IndicatorsComplete Information Review: Allergies, Home Meds and Significant Events have been Reviewed and Verified with Patient/Familyyes ALLERGY, INTOLERANCE, ADVERSE EVENT: Allergies: penicillin: Drug, Unknown, Active amoxicillin: Drug, Unknown, Active Electronic Signatures: Rosangela Hernandez) (Signed 09-Aug-2022 02:05) Authored: Initial Info, General Health, [facility] Based Care, Substance, Health Mgmt, Relationship/Environ, Additional Information Last Updated: 09-Aug-2022 02:05 by Rosangela Hernandez (RN) References: 1. Data Referenced From 1. Vital Signs 08-Aug-2022 21:37 2. Data Referenced From Risk Screen - Adult Emergency 08-Aug-2022 21:54 Normal [facility] THYROXINEon 08-09-2022 T4 [Mass/Vol] 6.0 ug/dL Normal 4.5 - 11.1 [facility] Comment on above: Performed By: #### C OV19 #### [address] [address] TROPONIN I, HIGH SENSITIVITY on 08-09-2022 TROPONIN I, HIGH SENSITIVITY 4 ng/L Normal 0 - 13 [facility] Comment on above: Result Comment: . Less than 99th percentile of normal range cutoff- Female and children under 18 years old <14 ng/L; Male <21 ng/L: Negative Repeat testing should be performed if clinically indicated. . Female and children under 18 years old 14-50 ng/L; Male 21-50 ng/L: Consistent with possible cardiac damage and possible increased clinical risk. Serial measurements may help to assess extent of myocardial damage. . >50 ng/L: Consistent with cardiac damage, increased clinical risk and myocardial infarction. Serial measurements may help assess extent of myocardial damage. . NOTE: Children less than 1 year old may have higher baseline troponin levels and results should be interpreted in conjunction with the overall clinical context. . NOTE: Troponin I testing is performed using a different testing methodology at [facility] than at other [facility]. Direct result comparisons should only be made within the same method. Performed By: #### T RPHS #### [address] [address] TSHon 08-09-2022 TSH Qn 0.85 m[IU]/L Normal 0.44 - 3.98 [facility] Comment on above: Result Comment: TSH testing is performed using different testing methodology at [facility] than at other [facility]. Direct result comparisons should only be made within the same method. Performed By: #### G LAURI #### [address] [address] UA MICROSCOPICon 08-09-2022 AMORPHOUS CRYSTAL 1+ /HPF Normal [facility] Comment on above: Performed By: #### U AMIC #### [place] [address] BACTERIA 1+ /HPF Abnormal [facility] Comment on above: Performed By: #### U AMIC #### [place] [address] HYALINE CAST 1+ /LPF Abnormal [facility] Comment on above: Performed By: #### U AMIC #### [place] [address] Mucus Ql (Urine sed) 1+ /LPF Normal [facility] Comment on above: Performed By: #### U AMIC #### [place] [address] RBC 1 /HPF Normal 0-5 [facility] Comment on above: Performed By: #### U AMIC #### [place] [address] SQUAMOUS EPITH. CELLS 5 /HPF Normal [facility] Comment on above: Performed By: #### U AMIC #### [place] [address] WBC 7 /HPF Abnormal 0-5 [facility] Comment on above: Performed By: #### U AMIC #### [place] [address] Lab Specimen Source Normal [facility] Comment on above: Performed By: #### U AMIC #### [place] [address] Performed By: #### C OV19 #### [place] [address] URINALYSIS WITH CULTURE IF I NDICATEDon 08-09-2022 Appearance (U) HAZY Normal CLEAR [facility] Comment on above: Performed By: #### C OV19 #### [place] [address] Bilirubin Ql (U) Negative Normal NEGATIVE [facility] Comment on above: Performed By: #### C OV19 #### [place] [address] Color (U) Brooke Normal STRAW,YELLOW [facility] Comment on above: Performed By: #### C OV19 #### [address] [address] Glucose Ql (U) Negative Normal NEGATIVE [facility] Comment on above: Performed By: #### C OV19 #### [address] [address] Hemoglobin Ql (U) Negative Normal NEGATIVE [facility] Comment on above: Performed By: #### C OV19 #### [place] [id number] Ketones Ql (U) 5(TRACE) Abnormal NEGATIVE [facility] Comment on above: Performed By: #### C OV19 #### [place] [id number] Leukocyte esterase Test strip Ql (U) TRACE Abnormal NEGATIVE [facility] Comment on above: Performed By: #### C OV19 #### [place] [address] Nitrite Ql (U) Negative Normal NEGATIVE [facility] Comment on above: Performed By: #### C OV19 #### [place] [address] pH (U) 6.0 [pH] Normal 5.0 - 8.0 [facility] Comment on above: Performed By: #### C OV19 #### [place] [id number] Protein Ql (U) 30(1+) Abnormal NEGATIVE [facility] Comment on above: Performed By: #### C OV19 #### [place] [id number] Specific gravity (U) [Rel density] 1.021 Normal 1.005 - 1.035 [facility] Comment on above: Performed By: #### C OV19 #### [address] [address] Urobilinogen (U) [Mass/Vol] 4.0 mg/dL High 0.0 - 1.9 [facility] Comment on above: Result Comment: SOME PIGMENTS AND MEDICATIONS MAY CAUSE A FALSE POSITIVE UROBILINOGEN Performed By: #### C OV19 #### [address] [address] URINE CULTURE,BACTERIALon URINE CULTURE,BACTERIAL PATIENT: MIK SHELTON LOCATION: [facility] Kirill BURTON#: [id number] : 43 AGE: SEX: F ORDERED BY: CORKY YOUNGER SOURCE: URINE COLLECTED: 08/08/22 23:28 ANTIBIOTICS AT DILIA.: RECEIVED : 08/09/22 17:10 SITE: R E S U L T S URINE CULTURE,BACTERIAL FINAL 08/10/22 11:37 MULTIPLE ORGANISMS PRESENT, PROBABLE CONTAMINATION PLEASE REPEAT CULTURE. Normal [facility] Comment on above: Performed By: #### C OV19 #### [place] [id number] VITAMIN B12on 08-09-2022 Cobalamin (Vitamin B12) [Mass/Vol] 1146 pg/mL High 211 - 911 [facility] Comment on above: Performed By: #### U ARFX #### [address] [address] Provider Note - ED v3on 07-12 Provider Note - ED v3 Provider Note: Chart Review: ED NOTES ED NOTES: History of Present Illness: 77-year-old female presents from local [place] [facility] [place] with concern for altered mentation. Staff states that they went into place a rectal suppository for constipation and found her to be unresponsive. Brought in by EMS who treated her with Narcan and her mentation significantly improved. Patient cannot provide accurate history of present illness given her medical condition. Past Medical History: Cerebral palsy, hypothyroidism, hypertension Past surgical History: Noncontributory Family history: Reviewed and not pertinent to complaint Social history: No history of drug, alcohol, tobacco abuse. REVIEW OF SYSTEMS: Pertinent negatives and positives noted in the HPI. Otherwise, a complete review of system was negative. PHYSICAL EXAM: Appearance: Alert. cooperative, in no acute distress. Skin: Intact, dry skin, no lesions, rash, petechiae or purpura. Eyes: PERRLA, EOMs intact, Conjunctiva pink with no redness or exudates. HENT: Normocephalic, atraumatic. Nares patent. No intraoral lesions. Neck: Supple, without meningismus. Trachea at midline. No lymphadenopathy. Pulmonary: Clear bilaterally with good chest wall excursion. No rales, rhonchi or wheezing. No accessory muscle use or stridor. Cardiac: Regular rate and rhythm, no rubs, murmurs, or gallops. Abdomen: Abdomen is soft, nontender, and nondistended. No palpable organomegaly. No rebound or guarding. Nonsurgical abdomen. Genitourinary: Exam deferred. Musculoskeletal: Pulses full and equal. No cyanosis, clubbing, or edema. Neurological: No focal findings identified. Psychiatric: Appropriate mood and affect. HISTORY OF PRESENTING ILLNESS MIK is a 77 year old Female and was seen by me at 08-Aug-2022 21:23 for a chief complaint of unresponsive (Pt arrives per EMS [place] was found unresponsive. Given Narcan and she perked up a little)(1). Triage Information: Most recent Vital Sign Value Date Temp (F): 97.4 08-08-2022 21:37 Temp (C): 36.3 08-08-2022 21:37 Heart Rate (beats/min): 71 08-08-2022 21:37 Respirations (breaths/min): 16 08-08-2022 21:37 SpO2 (%): 98 08-08-2022 21:37 BP Systolic (mm Hg): 128 08-08-2022 21:37 BP Diastolic (mm Hg): 83 08-08-2022 21:37 PAST MEDICAL HISTORY ALLERGIES/INTOLERANCES: Allergy Allergen: penicillin Type: Drug Reaction: Unknown Allergen: amoxicillin Type: Drug Reaction: Unknown HEALTH HISTORY: No documented data. OUTPATIENT MEDICATIONS: Home Medications Review Status for Reconciliation: Complete Med Status: Patient Currently Takes Medications Drug Name: alendronate 70 mg oral tablet Instructions: 1 tab(s) orally once a week Drug Name: guaiFENesin 100 mg/5 mL oral liquid Instructions: 10 milliliter(s) orally every 4 hours Drug Name: hydrOXYzine hydrochloride 25 mg oral tablet Instructions: 1 tab(s) orally 4 times a day Drug Name: lispro insulin Instructions: as per slidding scal;e Drug Name: levothyroxine 50 mcg (0.05 mg) oral capsule Instructions: 1 cap(s) orally once a day Drug Name: lisinopril 30 mg oral tablet Instructions: 1 tab(s) orally once a day Drug Name: lovastatin 20 mg oral tablet Instructions: 1 tab(s) orally once a day SIGNIFICANT EVENTS: Past Medical History Description:diabetes CRITICAL CARE RESULTS: Recent Lab Results: I have reviewed these laboratory results: Blood Gas, Arterial 09-Aug-2022 01:10:00 ResultValue pH, Arterial 7.38 pCO2, Arterial 53 H pO2, Arterial 113 H PATIENT TEMPERATURE, Arterial 37.0 FIO2, Arterial 24 SO2, Arterial 99 Oxy Hgb, Arterial 97.2 BASE EXCESS-BLOOD, Arterial 4.9 H BiCarb-Calculated, Arterial 31.4 H Apparatus Cannula Drug Screen, Urine 09-Aug-2022 00:20:00 ResultValue Comments. SEE BELOW Drug screen results are presumptive and should not be used to assess compliance with prescribed medication. Contact the performing [facility] laboratory to add-on definitive confirmatory testing if clinically indicated. .Toxicology scre Amphetamine Screen, Urine PRESUMPTIVE NEGATIVE CUTOFF LEVEL: 500 NG/ML Cross-reactivity has been reported with high concentrations of the following drugs: buproprion, chloroquine, chlorpromazine, ephedrine, mephentermine, fenfluramine, phentermine, phenylpropanolamine Barbiturate Screen, Urine PRESUMPTIVE NEGATIVE PRESUMPTIVE NEGATIVE CUTOFF LEVEL: 200 NG/ML Benzodiazepine Screen, Urine PRESUMPTIVE POSITIVE PRESUMPTIVE POSITIVE CUTOFF LEVEL: 200 NG/ML A Cannabinoid Screen, Urine PRESUMPTIVE NEGATIVE PRESUMPTIVE NEGATIVE CUTOFF LEVEL: 50 NG/ML Cocaine Metabolite Screen, Urine PRESUMPTIVE NEGATIVE PRESUMPTIVE NEGATIVE CUTOFF LEVEL: 150 NG/ML Fentanyl Screen, Urine PRESUMPTIVE NEG (more content not included)... [facility] Risk Screen - Adult Emergenc yon 08-08-2022 Risk Screen - Adult Emergency Preferred Language: Preferred Language: Preferred Language for Discussing Health Care (patient/designee)Nakia zuniga Patient Preferred Pharmacy: Patient Preferred Pharmacy Statement: I have reviewed and updated the patient's preferred pharmacy selection for today's visit. Advanced Directives: Advance Directive/DNRno Family Violence Adult: Abuse Screen: Are you or have you been threatened or abused physically, emotionally, or sexually by anyoneunable to assess Clinical assessment: Are there any apparent signs of injuries/behaviors that could be related to abuse/neglectunable to assess Learning Assessment (Patient): Learning Assessment (Patient): Patient is Able to be Assessed for Learningno Reason Unable to Assessmentally impaired Other Learnersnone Learning Assessment (Other Learner): Learning Assessment (Other Learner): Other learner availableno Pressure Injury/TB/Substance: Pressure Injury: Pressure Injury Present on Admissionno Do you have a coughno Smoking Statusnever smoker Alcohol Usedenies Drug Usedenies Drug 2 Usedenies Admission Risk Screen: Significant IndicatorsComplete CAGE: CAGE: Is this an injured patient at a Trauma Center ([facility]/[place]): no Electronic Signatures: Jojo Loyd (SUPV) (Signed 08-Aug-2022 21:56) Authored: Preferred Language, Patient Preferred Pharmacy, Advanced Directives, Family Violence Adult, Learning Assessment (Patient), Learning Assessment (Other Learner), Pressure Injury/TB/Substance, Pressure Injury, CAGE Last Updated: 08-Aug-2022 21:56 by Jojo Loyd (SUPV) [facility] Triage - EDon 08-08-2022 Triage - ED Quick Triage: The patient and/or guardian verbally acknowledges placement for services into the following (when Urgent Care Service hours are operating):emergency department Chart Review: ARRIVAL INFORMATION Mode of Arrival: ambulance Agency: [facility] Agency Name: [facility] CHIEF COMPLAINT MIK SHELTON is a Female patient with a chief complaint of unresponsive (Pt arrives per EMS from [place] was found unresponsive. Given Narcan and she perked up a little). Onset of the Complaint: 08-Aug-2022 Triage Date/Time: 08-Aug-2022 21:37 SHEKHAR: 2 Pain Rating (0-10): unable to assess Vital Signs: Temperature: 97.4F ( 36.3C) taken temporal Blood Pressure: 128/83 Mean: Heart Rate: 71 Respiratory Rate: 16 Pulse Oximetry: 98% on room air, no respiratory support. Height: 5 feet 4.00 inches. 162.5 CM Weight: 141.0 pounds. Calculated 64.0 kg. (stated) Calculated BMI (kg/m2): 24.236 Calculated BSA (m2) 1.70 Renee Coma Scale: Best Motor Response: (M6) obeys commands Best Verbal Response: (V5) oriented Cough lasting greater than 3 weeks: no Patient immunocompromised related to: N/A Allergies: yes Patient has homicidal thoughts: no Last Known Well: unknown Risk Screens Suicide Risk Screen In the Past Month: Have you wished you were or wished you could go to sleep and not wake up no In the Past Month: Have you had any actual thoughts of killing yourself no In Your Lifetime: Have you ever done anything, started to do anything, or prepared to do anything to end your life no Bell Fall Scale Screening Has the patient fallen before (or is the patient in the ED as a result of a fall) has not had a fall Does the patient have an impaired gait does not have impaired gait Is the patient cognitively impaired not cognitively impaired Interventions: Bell Fall Interventions: LOW INTERVENTIONS: *patient oriented to surroundings and call system, * patient/family falls education completed and documented, *patients fall status communicated during bedside handoff, *whiteboard updated, *mode of toileting discussed with patient, *bed in low position with brakes locked, *call light in reach, * non-skid footwearlow interventions except: patient oriented to surroundings and call systemlow interventions except: patient/family falls education completed and documentedlow interventions except: patients fall status communicated during bedside handoff, whiteboard updatedlow interventions except: mode of toileting discussed with patientlow interventions except: bed in low position with brakes lockedlow interventions except: call light in reach and low interventions except: non-skid footwear TRAVEL HISTORY Travel History Coronavirus Screening: no exposure or symptoms Travel Exposure History: NO travel to International locations in the past 30 days PAIN Pain Scale Used: NALLELY Pain Rating (0-10): unable to assess Past Medical History: Past Medical History Reviewedyes diabetes: Past Medical History, Active Electronic Signatures: Jojo Loyd (SUPV) (Signed 08-Aug-2022 21:52) Entered: Risk Screens, Pain, Travel History, Chart Review, Scores, Past Medical History Authored: Quick Triage, Risk Screens, Pain, Travel History, Chart Review, Scores, Past Medical History Last Updated: 08-Aug-2022 21:52 by Jojo Loyd (SUPV) [facility] No Panel InformationOrdered By: Dr. Mobley on 05-22-2022 Thyroid Stimulating Hormone (TSH) 1.21 uIU/mL 0.358-3.74 [facility] Vitamin D 25-Hydroxy 44.3 ng/mL [facility] Comment on above: Vitamin D 25(OH) Sta tus Range Deficiency <20 ng/mL (50nmol/L) Insufficiency 20 - 30 ng/mL (50 - 75 nmol/L) Sufficiency 30 - 100 ng/mL (75 - 250 nmol/L) Toxicity >100 ng/mL (>250 nmol/L) Absolute lymphocyte countOrd ered By: Dr. Mobley on 05-20-2022 Lymphocytes Auto (Unsp spec) [#/Vol] 2.34 10*3/uL 0.83-4.51 [facility] Basophil percentageOrdered B y: Dr. Mobley on 05-20-2022 Basophils/100 WBC (Bld) 0.5 % 0-1 [facility] Bilirubin [Mass/Vol] 0.10 mg/dL 0.20-1.00 [facility] Comment on above: For patients on eltr ombopag therapy, use of Dimension Kirby TBIL is not recommended. Chloride [Moles/Vol] 102 mmol/L 98-107 [facility] Eosinophils/100 WBC (Bld) 5.0 % 0-5 [facility] Glucose [Mass/Vol] 144 mg/dL 74-106 [facility] Comment on above: Fasting Glucose resu lt greater than or equal to 126 mg/dL suggests DIABETES MELLITUS per A.D.A. criteria. Neutrophils (Bld) [#/Vol] 5.3 10*3/uL 2.0-7.7 [facility] Neutrophils/100 WBC (Bld) 60.4 % 47-70 [facility] Potassium [Moles/Vol] 4.5 mmol/L 3.5-5.1 [facility] Protein [Mass/Vol] 7.3 g/dL 6.4-8.2 [facility] Sodium [Moles/Vol] 138 mmol/L 136-145 [facility] WBC (Bld) [#/Vol] 8.8 10*3/uL 4.4-11.0 [facility] Blood erythrocytes count (nu mber/volume)Ordered By: Dr. Mobley on 05-20-2022 RBC (Bld) [#/Vol] 4.09 10*6/uL 4.2-5.4 [facility] Blood hemoglobin measurement (mass/volume)Ordered By: Dr. Mobley on 05-20-2022 Hemoglobin (Bld) [Mass/Vol] 12.7 g/dL 12.0-15.0 [facility] Blood lymphocytes/100 leukoc ytesOrdered By: Dr. Mobley on 05-20-2022 Lymphocytes/100 WBC (Bld) 26.7 % 19-41 [facility] Blood monocytes/100 leukocyt esOrdered By: Dr. Mobley on 05-20-2022 Monocytes/100 WBC (Bld) 7.1 % 0-10 [facility] Blood platelet mean volumeOr dered By: Dr. Mobley on 05-20-2022 Platelet mean volume (Bld) [Entitic vol] 10.7 fL 6.2-12.0 [facility] Determination of erythrocyte mean corpuscular volume (MCV)Ordered By: Dr. Mobley on 05-20-2022 MCV (RBC) [Entitic vol] 99.8 fL 81-99 [facility] Hematocrit Auto (Bld) [Volum e fraction]Ordered By: Dr. Mobley on 05-20-2022 Hematocrit (Bld) [Volume fraction] 40.8 % 37-47 [facility] Laboratory - Chemistry and C hemistry - challengeOrdered By: Dr. Mobley on 05-20-2022 ALP [Catalytic activity/Vol] 89 U/L 45-117 [facility] ALT [Catalytic activity/Vol] 34 U/L 13-56 [facility] CO2 [Moles/Vol] 25.0 mmol/L 21.0-32.0 [facility] Globulin (S) [Mass/Vol] 4.2 g/dL 2.2-4.2 [facility] Urea nitrogen/Creatinine [Mass ratio] 31.4 mg/mg 10-20 [facility] Laboratory - Hematology and Cell countsOrdered By: Dr. Mobley on 05-20-2022 Erythrocyte distribution width (RBC) [Entitic vol] 48.8 fL 35.1-43.9 [facility] Erythrocyte distribution width (RBC) [Ratio] 13.2 % 11.6-14.6 [facility] Immature granulocytes/100 WBC (Bld) 0.300 % 0.0-0.9 [facility] Comment on above: IG% - Immature Granu locytes (promyelocytes, myelocytes and metamyelocytes) > 1% indicates that a LEFT SHIFT is Present. MCH (RBC) [Entitic mass] 31.1 pg 27.0-32.0 [facility] Nucleated RBC/100 WBC (Bld) [Ratio] 0 % 0-5 [facility] MCHC Auto (RBC) [Mass/Vol]Or dered By: Dr. Mobley on 05-20-2022 MCHC (RBC) [Mass/Vol] 31.1 g/dL 32-36 [facility] No Panel InformationOrdered By: Dr. Mobley on 05-20-2022 Estimated GFR (MDRD) Amer 82 mL/min >60 [facility] Comment on above: GFR Calc Estimated GFR (MDRD) Non-Af Amer 68 mL/min >60 [facility] Comment on above: Non- GFR Calc Platelets bldOrdered By: Dr. Mobley on 05-20-2022 Platelets (Bld) [#/Vol] 306 10*3/uL 150-450 [facility] Serum or plasma albumin amparo urement (mass/volume)Ordered By: Dr. Mobley on 05-20-2022 Albumin [Mass/Vol] 3.1 g/dL 3.2-5.0 [facility] Serum or plasma albumin/glob ulin mass ratioOrdered By: Dr. Moblye on 05-20-2022 Albumin/Globulin [Mass ratio] 0.7 {ratio} 0.9-2.4 [facility] Serum or plasma calcium amparo urement (mass/volume)Ordered By: Dr. Mobley on 05-20-2022 Calcium [Mass/Vol] 9.8 mg/dL 8.5-10.1 [facility] Serum or plasma creatinine m easurement (mass/volume)Ordered By: Dr. Mobley on 05-20-2022 Creatinine [Mass/Vol] 0.86 mg/dL 0.55-1.02 [facility] Comment on above: The validity of the calculated GFR & GFRAA in patients over 70 years has not been determined. Clinical correlation is essential. Serum or plasma urea nitroge n measurement (mass/volume)Ordered By: Dr. Mobley on 05-20-2022 Urea nitrogen [Mass/Vol] 27 mg/dL 7-18 [facility] Thin prep Papanicolaou smear with manual screeningOrdered By: Dr. Mobley on 05-20-2022 Thin prep Papanicolaou smear with manual screening 24 U/L 15-37 [facility] Thin prep Papanicolaou smear with manual screening 11 5-15 [facility] Whole blood hemoglobin A1c/t otal hemoglobin ratio (mass fraction)Ordered By: Dr. Mobley on 05-20-2022 HbA1c (Bld) [Mass fraction] 6.6 % 3.8-5.6 [facility] Comment on above: Normal < 5.7 % Predi abetic 5.7 - 6.4 % Diabetic >or= 6.5 % Please note range changes. 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 STG: MIK and caregivers will demonstrate good carryover with self feeding with [place] assistance with regular handled, coated and removable built up handle for grasping utensil with feeding. Motor Function/Control/Tone: Intervention plan include: ADLs, ADL re-training, education/instruction and home program . Frequency and duration: no further visits planned. Potential to achieve rehab goals is excellent. Plan of care was developed with input and agreement by the nurse. Assessment Mik presents to outpatient OT services this date with impaired self feeding skills at this time. Pt previously using large built up handle curtain stretcher assembler for utensil and has had reduced active participation with gripping utensil. Pt is accompanied by nurse at this time who reports increased difficulty with assisting pt with feeding d/t the built up handle and the increased level of physical assist needed. Pt demonstrates ability to grasp regular handle utensil with [place] assist this date. Nurse demos good understanding of education and recommended modification of regular curtain stretcher assembler spoon handle. Pt also provided removable built up curtain stretcher assembler to be used as needed that is smaller than previous handle curtain stretcher assembler. Pt also could benefit from coated utensil on days with less active participation d/t tactile cues needed orally and this adaptation would maintain joint/soft tissue integrity. Pt also noted to have some signs and symptoms of shoulder edema at this time, pt provided tubigrip size E to facilitate edema management for joint integrity of LUE d/t less active use of UE. Nurse demonstrates good carryover of recommendations and precautions. Nurse denies additional need for practice with recommended device at this time and demos good understanding to call with any quesitons/concerns. Interdisciplinary Team Communication: occupational therapy . Clinical Presentation: stable and/or uncomplicated characteristics Level of Complexity: low Problems To Be Addressed: decreased ADL performance, decreased knowledge of assisted device use, decreased knowledge of HEP, decreased ROM/joint mobility and fall risk. Adult Risk Screening There are no spiritual/cultural practices/values/needs that are important to know Initial Fall Risk Screening: MIK has not fallen in the last 6 months. Her fall did not result in injury. MIK does not have a fear of falling. She needs assistance with . Needs assistance walking in her home. She needs assistance in an unfamiliar setting. The patient is using an assistive device. Please identify location of pain: no pain at this time. Insurance Insurance reviewed Visit number: 1 Authorization date range: Authorization not required after evaluation Medicare Certification Period: Beginnin2021 Endin2021 Subjective Patient reports: Pt presenting [place] nurse [place] a [place] [facility] [place] in [facility]. Pt presenting in tilt and space chair with chest seat belt. Pt is nonverbal and is accompanied by nurse who provides information on pt current difficulty with feeding ADLs. Medical Screening: Reviewed medical history form with patient and medical screening assessed. Fall Risk: high Eating or Feeding: impaired , patient priority Functional Assessment and Medical Management Prior Level of Function: disabled due to intellectual disanility. Work History:. She is disabled. Patient stated goal(s) for treatment include:. 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 Current Status: condition of patient is unchanged. Patient Awareness: Pt is aware of her diagnosis and prognosis. Personal Factors That May Impact Care: cognition . Preferred learning method: . pt has a nurse present d/t intellectual difficulty. [place] [facility]. Treatment Time in clinic started at 810 am Time in clinic ended at 840 am Total time in clinic is 30 minutes. Total timed code time is 15 minutes. Treatment Performed Today Treatment Performed Today: therapeutic activities and education . Evaluation Code: 15 min(s). 32427 - OT Eval Low Complexity Timed: 96353 Self Care Management Training, 1 unit(s), 15 min(s). Contacts for Physician Signature First attempt date: 03/03/22. Referring Provider Signature: I am in agreement with the above plan of care. Referring Provider Signature __, Date/Time Signatures Electronically signed by : STEFFANIE Clayton/Mike; Mar 03 2022 9:32AM EST (Author) Normal [facility] Peds OT Initial Evaluation ( Peds OT Initial Evaluation)on 03-03-2022 Peds OT Initial Evaluation ( Peds OT Initial Evaluation) No report was sent Normal [facility] Complete Blood Count + Diffe rentialon 02-26-2022 Basophils/100 WBC (Bld) 0.9 % 0.0 - 2.0 [facility] Work Phone: Erythrocyte distribution width (RBC) [Ratio] 14.2 % See Below [facility] Work Phone: Comment on above: Reference Range: 11. 5 - 14.5 Hematocrit (Bld) [Volume fraction] 38.2 % See Below [facility] Work Phone: Comment on above: Reference Range: 36. 0 - 46.0 Hemoglobin (Bld) [Mass/Vol] 12.5 g/dL [facility] Work Phone: [phone] Comment on above: Reference Range: 12. 0 - 16.0 Lymphocytes/100 WBC (Bld) 28.0 % See Below [facility] Work Phone: Comment on above: Reference Range: 13. 0 - 44.0 MCHC (RBC) [Mass/Vol] 32.8 g/dL See Below [facility] Work Phone: Comment on above: Reference Range: 32. 0 - 36.0 MCV (RBC) [Entitic vol] 94 fL 80 - 100 [facility] Work Phone: [phone] Monocytes/100 WBC (Bld) 6.0 % 2.0 - 10.0 [facility] Work Phone: [phone] Neutrophils/100 WBC (Bld) 60.1 % See Below [facility] Work Phone: Comment on above: Reference Range: 40. 0 - 80.0 Platelets (Bld) [#/Vol] 360 10*3/uL 150 - 450 [facility] Work Phone: [phone] RBC (Bld) [#/Vol] 4.05 {x10E12/L} See Below [facility] Work Phone: [phone] Comment on above: Reference Range: 4.0 0 - 5.20 WBC (Bld) [#/Vol] 11.4 10*3/uL above high threshold 4.4 - 11.3 [facility] Work Phone: Complete Blood Count + Differential 0.10 {x10E9/L} See Below [facility] Work Phone: Comment on above: Reference Range: 0.0 0 - 0.10 Complete Blood Count + Differential 0.60 {x10E9/L} above high threshold See Below [facility] Work Phone: Comment on above: Reference Range: 0.0 0 - 0.40 Complete Blood Count + Differential 0.70 {x10E9/L} See Below [facility] Work Phone: Comment on above: Reference Range: 0.0 5 - 0.80 Complete Blood Count + Differential 3.20 {x10E9/L} above high threshold See Below [facility] Work Phone: Comment on above: Reference Range: 0.8 0 - 3.00 Complete Blood Count + Differential 6.90 {x10E9/L} above high threshold See Below [facility] Work Phone: Comment on above: Reference Range: 1.6 0 - 5.50 Percent differential counts (%) should be interpreted in the context of the absolute cell counts (cells/L). Complete Blood Count + Differential 5.0 % 0.0 - 6.0 [facility] Work Phone: Hemoglobin A1Con 02-26-2022 Glucose [Mass/Vol] 134 mg/dL [facility] Work Phone: HbA1c (Bld) [Mass fraction] 6.3 % Abnormal [facility] Work Phone: Comment on above: Diagnosis of Diabete s-Adults Non-Diabetic: < or = 5.6% Increased risk for developing diabetes: 5.7-6.4% Diagnostic of diabetes: > or = 6.5%. Monitoring of Diabetes Age (y) Therapeutic Goal (%) Adults: >18 <7.0 Pediatrics: 13-18 <7.5 7-12 <8.0 0- 6 7.5-8.5 [place] [employer]. Diabetes Care 33(S1), Aug 2009. Laboratory - Chemistry and C hemistry - challengeon 02-26-2022 Albumin BCP dye [Mass/Vol] 4.0 g/dL 3.4 - 5.0 [facility] Work Phone: ALP [Catalytic activity/Vol] 86 U/L 33 - 136 [facility] Work Phone: [phone] ALT With P-5'-P [Catalytic activity/Vol] 23 U/L 7 - 45 [facility] Work Phone: Comment on above: Patients treated wit h Sulfasalazine may generate falsely decreased results for ALT. Anion gap [Moles/Vol] 14 mmol/L 10 - 20 [facility] Work Phone: AST With P-5'-P [Catalytic activity/Vol] 19 U/L 9 - 39 [facility] Work Phone: Bilirubin [Mass/Vol] 0.3 mg/dL 0.0 - 1.2 [facility] Work Phone: Calcium [Mass/Vol] 9.1 mg/dL 8.6 - 10.3 [facility] Work Phone: Chloride [Moles/Vol] 99 mmol/L 98 - 107 [facility] Work Phone: CO2 [Moles/Vol] 29 mmol/L 21 - 32 [facility] Work Phone: [phone] Creatinine [Mass/Vol] 0.79 mg/dL See Below [facility] Work Phone: Comment on above: Reference Range: 0.5 0 - 1.05 Glucose [Mass/Vol] 109 mg/dL above high threshold 74 - 99 [facility] Work Phone: Potassium [Moles/Vol] 4.6 mmol/L 3.5 - 5.3 [facility] Work Phone: Protein [Mass/Vol] 7.2 g/dL 6.4 - 8.2 [facility] Work Phone: Sodium [Moles/Vol] 137 mmol/L 136 - 145 [facility] Work Phone: Urea nitrogen [Mass/Vol] 24 mg/dL above high threshold 6 - 23 [facility] Work Phone: Lipid Panelon 02-26-2022 Cholesterol [Mass/Vol] 183 mg/dL 0 - 199 [facility] Work Phone: Comment on above: . AGE DESIRABLE BORD SARMAD HIGH HIGH 0-19 Y 0 - 169 170 - 199 >/= 200 20-24 Y 0 - 189 190 - 224 >/= 225 >24 Y 0 - 199 200 - 239 >/= 240 All ranges are based on fasting samples. Specific therapeutic targets will vary based on patient-specific cardiac risk.. Pediatric guidelines reference:Pediatrics 2011, 128(S5). Adult guidelines reference: NCEP ATPIII Guidelines, TIP 2001, 258:2486-97. Venipuncture immediately after or during the administration of Metamizole may lead to falsely low results. Testing should be performed immediately prior to Metamizole dosing. Cholesterol in HDL [Mass/Vol] 65.0 mg/dL [facility] Work Phone: Comment on above: . AGE VERY LOW LOW N ORMAL HIGH 0-19 Y < 35 < 40 40-45 ---- 20-24 Y ---- < 40 >45 ---- >24 Y ---- < 40 40-60 >60. Cholesterol in LDL [Mass/Vol] 91 mg/dL 0 - 99 [facility] Work Phone: Comment on above: . NEAR BORD AGE KATLIN RABLE OPTIMAL HIGH HIGH VERY HIGH 0-19 Y 0 - 109 --- 110-129 >/= 130 ---- 20-24 Y 0 - 119 --- 120-159 >/= 160 ---- >24 Y 0 - 99 100-129 130-159 160-189 >/=190. Cholesterol.total/Gabriella sterol in HDL [Mass ratio] 2.8 {ratio} [facility] Work Phone: Comment on above: REF VALUESDESIRABLE < 3.4HIGH RISK > 5.0 Triglyceride [Mass/Vol] 133 mg/dL 0 - 149 [facility] Work Phone: Comment on above: . AGE DESIRABLE BORD SARMAD HIGH HIGH VERY HIGH 0 D-90 D 19 - 174 ---- ---- ----91 D- 9 Y 0 - 74 75 - 99 >/= 100 ---- 10-19 Y 0 - 89 90 - 129 >/= 130 ---- 20-24 Y 0 - 114 115 - 149 >/= 150 ---- >24 Y 0 - 149 150 - 199 200- 499 >/= 500. Venipuncture immediately after or during the administration of Metamizole may lead to falsely low results. Testing should be performed immediately prior to Metamizole dosing. Lipid Panel 27 mg/dL 0 - 40 [facility] Work Phone: No Panel Informationon 02-26 77 {mL/min/1.73m2} >90 [facility] Work Phone: Comment on above: CALCULATIONS OF TIFFANI MATED GFR ARE PERFORMED USING THE 2020 CKD-EPI STUDY REFIT EQUATION WITHOUT THE RACE VARIABLE FOR THE IDMS-TRACEABLE CREATININE METHODS.https://jasn.asnjournals.org/content// ASN.0678042849 T4 - Free Thyroxine, Serumon 02-26-2022 Free T4 [Mass/Vol] 0.89 ng/dL See Below [facility] Work Phone: Comment on above: Reference Range: 0.6 1 - 1.12 Thyroxine Free testing is performed using different testing methodology at [facility] than at other [facility]. Direct result comparisons should only be made within the same method.. Biotin can cause falsely elevated free T4 results. Patients taking a Biotin dose of up to 10 mg/day should refrain from taking Biotin for 24 hours before sample collection. Patient taking a Biotin dose of >10 mg/day should consult with their physician or the laboratory before the blood draw. TSH - Thyroid Stimulating [place], Serumon 02-26-2022 TSH Qn 2.54 m[IU]/L See Below [facility] Work Phone: Comment on above: Reference Range: 0.4 4 - 3.98 TSH testing is performed using different testing methodology at [facility] than at other [facility]. Direct result comparisons should only be made within the same method. Absolute lymphocyte counton 01-07-2022 Lymphocytes Auto (Unsp spec) [#/Vol] 2.36 10*3/uL 0.83-4.51 [facility] Work Phone: Basophil percentageon 2021 Basophils/100 WBC (Bld) 0.6 % 0-1 [facility] Work Phone: Bilirubin [Mass/Vol] 0.20 mg/dL 0.20-1.00 [facility] Work Phone: Comment on above: For patients on eltr ombopag therapy, use of Dimension Kirby TBIL is not recommended. Chloride [Moles/Vol] 101 mmol/L 98-107 [facility] Work Phone: Eosinophils/100 WBC (Bld) 6.5 % 0-5 [facility] Work Phone: Glucose [Mass/Vol] 177 mg/dL 74-106 [facility] Work Phone: Comment on above: Fasting Glucose resu lt greater than or equal to 126 mg/dL suggests DIABETES MELLITUS per A.D.A. criteria. Neutrophils (Bld) [#/Vol] 5.3 10*3/uL 2.0-7.7 [facility] Work Phone: Neutrophils/100 WBC (Bld) 59.8 % 47-70 [facility] Work Phone: Potassium [Moles/Vol] 4.2 mmol/L 3.5-5.1 [facility] Work Phone: [phone] Protein [Mass/Vol] 7.1 g/dL 6.4-8.2 [facility] Work Phone: [phone] Sodium [Moles/Vol] 137 mmol/L 136-145 [facility] Work Phone: [phone] WBC (Bld) [#/Vol] 8.9 10*3/uL 4.4-11.0 [facility] Work Phone: [phone] Blood erythrocytes count (nu mber/volume)on 01-07-2022 RBC (Bld) [#/Vol] 3.81 10*6/uL 4.2-5.4 [facility] Work Phone: [phone] Blood hemoglobin measurement (mass/volume)on 01-07-2022 Hemoglobin (Bld) [Mass/Vol] 11.8 g/dL 12.0-15.0 [facility] Work Phone: [phone] Blood lymphocytes/100 leukoc yteson 01-07-2022 Lymphocytes/100 WBC (Bld) 26.6 % 19-41 [facility] Work Phone: [phone] Blood monocytes/100 leukocyt eson 01-07-2022 Monocytes/100 WBC (Bld) 6.3 % 0-10 [facility] Work Phone: [phone] Blood platelet mean volumeon 01-07-2022 Platelet mean volume (Bld) [Entitic vol] 10.3 fL 6.2-12.0 [facility] Work Phone: Determination of erythrocyte mean corpuscular volume (MCV)on 01-07-2022 MCV (RBC) [Entitic vol] 97.4 fL 81-99 [facility] Work Phone: Hematocrit Auto (Bld) [Volum e fraction]on 01-07-2022 Hematocrit (Bld) [Volume fraction] 37.1 % 37-47 [facility] Work Phone: [phone] Laboratory - Chemistry and C hemistry - challengeon 01-07-2022 ALP [Catalytic activity/Vol] 89 U/L 45-117 [facility] Work Phone: [phone] ALT [Catalytic activity/Vol] 36 U/L 13-56 [facility] Work Phone: [phone] CO2 [Moles/Vol] 27.0 mmol/L 21.0-32.0 [facility] Work Phone: [phone] Globulin (S) [Mass/Vol] 4.2 g/dL 2.2-4.2 [facility] Work Phone: [phone] Urea nitrogen/Creatinine [Mass ratio] 33.2 mg/mg 10-20 [facility] Work Phone: [phone] Laboratory - Hematology and Cell countson 01-07-2022 Erythrocyte distribution width (RBC) [Entitic vol] 46.8 fL 35.1-43.9 [facility] Work Phone: [phone] Erythrocyte distribution width (RBC) [Ratio] 13.2 % 11.6-14.6 [facility] Work Phone: [phone] Immature granulocytes/100 WBC (Bld) 0.200 % 0.0-0.9 [facility] Work Phone: [phone] Comment on above: IG% - Immature Granu locytes (promyelocytes, myelocytes and metamyelocytes) > 1% indicates that a LEFT SHIFT is Present. MCH (RBC) [Entitic mass] 31.0 pg 27.0-32.0 [facility] Work Phone: [phone] Nucleated RBC/100 WBC (Bld) [Ratio] 0 % 0-5 [facility] Work Phone: [phone] MCHC Auto (RBC) [Mass/Vol]on 01-07-2022 MCHC (RBC) [Mass/Vol] 31.8 g/dL 32-36 [facility] Work Phone: [phone] Panel Informationon 01-07 Estimated GFR (MDRD) Amer 75 mL/min >60 [facility] Work Phone: [phone] Comment on above: GFR Calc Estimated GFR (MDRD) Non-Af Amer 62 mL/min >60 [facility] Work Phone: Comment on above: Non- GFR Calc Thyroid Stimulating Hormone (TSH) 1.25 uIU/mL 0.358-3.74 [facility] Work Phone: Vitamin D 25-Hydroxy 33.4 ng/mL [facility] Work Phone: Comment on above: Vitamin D 25(OH) Sta tus Range Deficiency <20 ng/mL (50nmol/L) Insufficiency 20 - 30 ng/mL (50 - 75 nmol/L) Sufficiency 30 - 100 ng/mL (75 - 250 nmol/L) Toxicity >100 ng/mL (>250 nmol/L) Platelets bldon 01-07-2022 Platelets (Bld) [#/Vol] 339 10*3/uL 150-450 [facility] Work Phone: Serum or plasma albumin amparo urement (mass/volume)on 01-07-2022 Albumin [Mass/Vol] 2.9 g/dL 3.2-5.0 [facility] Work Phone: Serum or plasma albumin/glob ulin mass ratioon 01-07-2022 Albumin/Globulin [Mass ratio] 0.7 {ratio} 0.9-2.4 [facility] Work Phone: Serum or plasma calcium amparo urement (mass/volume)on 01-07-2022 Calcium [Mass/Vol] 8.8 mg/dL 8.5-10.1 [facility] Work Phone: [phone] Serum or plasma creatinine m easurement (mass/volume)on 01-07-2022 Creatinine [Mass/Vol] 0.94 mg/dL 0.55-1.02 [facility] Work Phone: Comment on above: The validity of the calculated GFR & GFRAA in patients over 70 years has not been determined. Clinical correlation is essential. Serum or plasma urea nitroge n measurement (mass/volume)on 01-07-2022 Urea nitrogen [Mass/Vol] 31 mg/dL 7-18 [facility] Work Phone: Thin prep Papanicolaou smear with manual screeningon 01-07-2022 Thin prep Papanicolaou smear with manual screening 22 U/L 15-37 [facility] Work Phone: Thin prep Papanicolaou smear with manual screening 9 5-15 [facility] Work Phone: MA Mamm Screen w/CAD if perf ormed bilaton 12-28-2018 [place] Mamm Screen w/CAD if performed bilat Exam Date/Time: 12/28/2018 10:58 EDT Reason for Exam: SCREENING Z12.31 Report STUDY: Digital mammography screening; 12/28/2018 10:58 am ACCESSION NUMBER(S): [id number] ORDERING CLINICIAN: Luis Daniel James INDICATION: Screening. COMPARISON: Comparison is made to prior digital mammograms dated 08/31/2017 and 08/29/2016 FINDINGS: And 08/29/2016 CC and MLO 2D digital mammographic images of the bilateral breasts were obtained. There are areas of scattered fibroglandular tissue. No discrete mass or focal asymmetry is identified. No suspicious microcalcifications or foci of architectural distortion are seen. There has been no significant change. This study was interpreted with CAD. IMPRESSION: No mammographic evidence of malignancy. BI-RADS CATEGORY: Category: 1 - Negative. Recommendation: Normal Interval Follow-up, Over Age 40. Recall Interval: 12 Months. Breast Density: Scattered Fibroglandular Density. FINAL REPORT Dictated: 12/28/2018 1:45 pm Lázaro Maya MD Signed (Electronic Signature): 12/28/2018 1:45 pm Signed by: Lázaro Maya MD Technologist: MG[facility] Assessment: BI-RADS Category 1-Negative Recommendation: Normal interval follow-up Normal [facility] Auto Diffon 11-16-2018 Basophils #/vol (Bld) 0.1 E3/mcL Normal 0.0-0.2 [facility] Comment on above: Order Comment: Order added by Discern Expert. Performed By: #### 1 [id number] #### [facility] [address] [place] [address] Basophils/100 WBC (Bld) 0.6 % Normal 0.0-2.0 [facility] Comment on above: Order Comment: Order added by Discern Expert. Performed By: #### 1 [id number] #### [facility] [address] [place] [address] Eos Absolute 0.7 E3/mcL Normal 0.0-0.7 [facility] Comment on above: Order Comment: Order added by Discern Expert. Performed By: #### 1 [id number] #### [facility] [address] [place] [address] Eosinophils/100 WBC (Bld) 7.5 % Normal 0.0-11.0 [facility] Comment on above: Order Comment: Order added by Discern Expert. Performed By: #### 1 [id number] #### [facility] [address] [place] [address] Lymphocytes #/vol (Bld) 2.4 E3/mcL Normal 1.2-3.4 [facility] Comment on above: Order Comment: Order added by Discern Expert. Performed By: #### 1 [id number] #### [facility] [address] [place] [address] Lymphocytes/100 WBC (Bld) 26.9 % Normal 20.0-55.0 [facility] Comment on above: Order Comment: Order added by Discern Expert. Performed By: #### 1 [id number] #### [facility] [address] [place] [address] [place] Absolute 0.6 E3/mcL Normal 0.0-0.7 [facility] Comment on above: Order Comment: Order added by Discern Expert. Performed By: #### 1 [id number] #### [facility] [address] [place] [address] Monocytes/100 WBC (Bld) 6.3 % Normal 0.0-10.0 [facility] Comment on above: Order Comment: Order added by Discern Expert. Performed By: #### 1 [id number] #### [facility] [address] [place] [address] Neutro Absolute 5.2 E3/mcL Normal 1.4-6.5 [facility] Comment on above: Order Comment: Order added by Discern Expert. Performed By: #### 1 [id number] #### [facility] [address] [place] [address] Neutro Auto 58.7 % Normal 37.0-75.0 [facility] Comment on above: Order Comment: Order added by Discern Expert. Performed By: #### 1 [id number] #### [facility] [address] [place] [address] CBC w/ Auto Diffon 9 Erythrocyte distribution width Ratio (RBC) 12.8 % Normal 11.5-14.5 [facility] Comment on above: Performed By: #### 1 [id number] #### [facility] [address] [place] [address] Hematocrit Volume Fraction (Bld) 32.1 % Low 36.0-48.0 [facility] Comment on above: Performed By: #### 1 [id number] #### [facility] [address] [place] [address] Hemoglobin mass conc (Bld) 10.7 g/dL Low 12.0-16.0 [facility] Comment on above: Performed By: #### 1 [id number] #### [facility] [address] [place] [address] MCH Entitic mass (RBC) 32.9 pg High 27.0-31.0 [facility] Comment on above: Performed By: #### 1 [id number] #### [facility] [address] [place] [address] MCHC mass conc (RBC) 33.4 g/dL Normal 33.0-37.0 [facility] Comment on above: Performed By: #### 1 [id number] #### [facility] [address] [place] [address] MCV Entitic volume (RBC) 98.6 fL Normal 78.0-100.0 [facility] Comment on above: Performed By: #### 1 [id number] #### [facility] [address] [place] [address] Platelet mean volume Entitic volume (Bld) 8.5 fL Normal 7.4-11.0 [facility] Comment on above: Performed By: #### 1 [id number] #### [facility] [address] [place] [address] Platelets #/vol (Bld) 339 E3/mcL Normal 130-400 [facility] Comment on above: Performed By: #### 1 [id number] #### MOISÉSKiana Ramon [facility] [place] [address] RBC #/vol (Bld) 3.26 E6/mcL Low 3.90-5.40 [facility] Comment on above: Performed By: #### 1 [id number] #### [facility] [address] [place] [address] WBC #/vol (Bld) 8.9 E3/mcL Normal 3.6-11.0 [facility] Comment on above: Performed By: #### 1 [id number] #### [facility] [address] [place] [address] CMPon 11-16-2018 Albumin mass conc 3.6 g/dL Normal 3.4-5.0 [facility] Comment on above: Performed By: #### 1 [id number] #### MOISÉSKiana Ramon [address] [place] [address] Albumin/Globulin mass ratio 1.2 {ratio} Normal 1.1-1.9 [facility] Comment on above: Performed By: #### 1 [id number] #### [facility] [address] [place] [address] Alk Phos 90 Int._Unit/L Normal 33-136 [facility] Comment on above: Performed By: #### 1 [id number] #### MOISÉSKiana VelaBhavani [facility] [place] [address] ALT enzyme act/vol 21 Int._Unit/L Normal 7-45 [facility] Comment on above: Performed By: #### 1 [id number] #### [facility] Ramon [facility] [place] [address] Anion gap molar conc 11 mmol/L Normal 10-20 [facility] Comment on above: Performed By: #### 1 [id number] #### [facility] [address] [place] [address] AST enzyme act/vol 16 Int._Unit/L Normal 9-39 [facility] Comment on above: Performed By: #### 1 [id number] #### [facility] [address] [place] [address] Bili Total 0.19 mg/dL Normal 0.00-1.20 [facility] Comment on above: Performed By: #### 1 [id number] #### [facility] [address] [place] [address] Calcium mass conc 9.3 mg/dL Normal 8.6-10.3 [facility] Comment on above: Performed By: #### 1 [id number] #### [facility] [address] [place] [address] Chloride molar conc 106 mmol/L Normal 98-107 [facility] Comment on above: Performed By: #### 1 [id number] #### [facility] [address] [place] [address] CO2 molar conc 29.0 mmol/L Normal 21.0-32.0 [facility] Comment on above: Performed By: #### 1 [id number] #### [facility] [address] [place] [address] Creatinine mass conc 0.8 mg/dL Normal 0.5-1.1 [facility] Comment on above: Performed By: #### 1 [id number] #### [facility] [address] [place] [address] Globulin mass conc (S) 3.0 g/dL Normal 2.0-4.0 [facility] Comment on above: Performed By: #### 1 [id number] #### [facility] [address] [place] [address] Glucose mass conc 99 mg/dL Normal 70-99 [facility] Comment on above: Performed By: #### 1 [id number] #### [facility] [address] [place] [address] Potassium molar conc 4.4 mmol/L Normal 3.5-5.3 [facility] Comment on above: Performed By: #### 1 [id number] #### [employer]IS[employer] [address] [place] [address] Protein mass conc 6.6 g/dL Normal 6.4-8.2 [facility] Comment on above: Performed By: #### 1 [id number] #### MOISÉS Ramon [facility] [place] [address] Sodium molar conc 142 mmol/L Normal 136-145 [facility] Comment on above: Performed By: #### 1 [id number] #### MOIS[facility]S [facility] [place] [address] Urea nitrogen mass conc 39 mg/dL High 6-23 [facility] Comment on above: Performed By: #### 1 [id number] #### MOISÉS Ramon [facility] [place] [address] Urea nitrogen/Creatinine mass ratio 48.8 ratio High 5.4-30.0 [facility] Comment on above: Performed By: #### 1 [id number] #### MOIS[facility]S [facility] [place] [address] Free T4on 11-16-2018 T4 free mass conc 0.76 ng/dL Normal 0.58-1.64 [facility] Comment on above: Result Comment: Stephanie ents receiving more than 5mg/day of biotin may have interference in test results. A sample should be taken no sooner than eight hours after previous dose. Performed By: #### 1 [id number] #### MOISÉS Ramon [address] [place], [place] [id number] CsqQ8jal 11-16-2018 Hemoglobin A1c/Hemoglobin.total mass fraction (Bld) 5.7 % Normal 4.0-6.3 [facility] Comment on above: Performed By: #### 1 [id number] #### MOISÉS Ramon [address] [place] [address] TSHon 11-16-2018 Thyrotropin Qn 2.78 mcIU/mL Normal 0.30-5.60 [facility] Comment on above: Performed By: #### 1 [id number] #### MOISÉS [facility] [place] [address] eGFRon 11-16-2018 GFR/1.73 sq M predicted among non-blacks MDRD vol rate/area (S/P/Bld) mL/min/{1.73_m2} Normal [facility] Comment on above: Order Comment: Order added by Discern Expert. Performed By: #### 1 [id number] #### [employer] [address] [place] [address] Consultationon 09-02-2018 Consultation [facility] [place] [address] NAME MIK [facility] [id number] 1945 DATE 09/02/2018 CONSULTATION GENERAL PRACTITIONER STACI HOBBS MD REQUESTING SERVICE Wound Clinic. REASON FOR CONSULTATION Decubital ulceration of the bottom area and also for antibiotics management. HISTORY OF PRESENT ILLNESS The patient is a 73-year-old lady who is known with history of cerebral palsy and also had history of diabetes and osteoporosis with dysphagia. She is having also decubital ulceration of which they have been dressing in the past. She is presenting with recurrent history of decubital ulceration. Due to her cerebral palsy, patient has not been walking and she relies on somebody to help with repositioning. Home health helps with the patient. They said that they have been doing some repositioning. Each time the wound comes on, they start dressing with DuoDerm dressing and the wound heals, they stop. There is also a history of incontinence of urine. The patient is not communicating. Her evaluation currently is for recurrent decubital ulceration and antibiotics management. PAST MEDICAL HISTORY Again, includes history of diabetes, cerebral palsy, history of urinary tract infection, incontinence of urine, osteoporosis, dysphagia. MEDICATIONS At home include alendronate 70 mg every Thursday, aripiprazole 30 mg daily, diazepam 2 mg daily, hydralazine 50 mg at bedtime, insulin glargine 25 units at bedtime, levothyroxine 50 mcg daily, magnesium hydroxide, metformin 500 mg twice a day, multivitamin, oyster shell daily. ALLERGIES Allergic to ampicillin, caused unknown symptom of allergy. SOCIAL HISTORY Patient [place]. No smoking, alcohol or drug use. FAMILY HISTORY Could not obtain currently. REVIEW OF SYSTEMS Could not obtain. Patient is not communicating. EXAMINATION General: Patient is conscious, afebrile, anicteric. Vital Signs: Blood pressure is 103/48, pulse is 89, temperature is 96, respiratory rate of 18. Neck: Supple. No mass. Chest: Equal air entry. No wheezing or rales. Heart: S1, S2 present. Normal in intensity. Abdomen: Soft and nontender. Bowel sounds are present. No organomegaly. Lower Extremities: Some deformity of the leg and atrophy of the muscles due to nonuse. Skin: The bottom area was also examined. Healed wounds were noted. No ulceration or excoriation was noted. No erythema except for the scabs from healed wound. PRINCIPAL SYSTEMS ARCHITECT: Patient is awake but not communicating. LABORATORY DATA The last lab was done in 2018, shows BUN and creatinine of 13 and 0.46, bicarb of 28. In 2017, patient had white blood cell of 9.3, hemoglobin of 13.5, platelets of 366. ASSESSMENT Patient is a 73-year-old lady with known history of cerebral palsy, who also had history of recurrent urinary tract infections and osteoporosis, decubital ulceration, who had presented with history of recurrent ulcers on the bottom area, found currently with diagnoses of: 1. Healed decubital ulceration. 2. Urinary incontinence. 3. History of cerebral palsy. PLAN Currently will be to have recommendation for repositioning of patient to avoid decubital ulceration and also to have the area of the bottom dry. The patient should have change of her briefs every time she passes urine and also DuoDerm cushion dressing is also recommended and if the patient should develop any ulceration in the bottom area, the patient should also follow up in the wound clinic. I have taken time to discuss management with the healthcare retirement assistant personnel that were with the patient. I appreciate seeing your patient. We will continue to follow with you and adjust with more information and sign-out. MD Tianna ORDONEZ 09/02/2018 16:53 [id number] T 09/02/2018 17:29 UAE/MODL Electronically Signed By Staci Hobbs M.D. on 16 Sep 2018 00:12:53 GMT Normal [facility] Auto Diffon 07-14-2018 Basophils #/vol (Bld) 0.1 E3/mcL Normal 0.0-0.2 [facility] Comment on above: Order Comment: Order Added by Akilah Expert. Performed By: #### 2 [id number] #### MOIS[employer]S [employer] [facility] [place] [address] Basophils/100 WBC (Bld) 1.1 % Normal 0.0-2.0 [facility] Comment on above: Order Comment: Order Added by Akilah Expert. Performed By: #### 2 [id number] #### [employer] [address] [place] [address] Eos Absolute 1.0 E3/mcL High 0.0-0.7 [facility] Comment on above: Order Comment: Order Added by Discern Expert. Performed By: #### 2 [id number] #### [employer] [address] [place] [address] Eosinophils/100 WBC (Bld) 9.9 % Normal 0.0-11.0 [facility] Comment on above: Order Comment: Order Added by Discern Expert. Performed By: #### 2 [id number] #### [employer] [address] [place] [address] Lymphocytes #/vol (Bld) 2.8 E3/mcL Normal 1.2-3.4 [facility] Comment on above: Order Comment: Order Added by Discern Expert. Performed By: #### 2 [id number] #### MOIS[address] [address] Lymphocytes/100 WBC (Bld) 27.5 % Normal 20.0-55.0 [facility] Comment on above: Order Comment: Order Added by Discern Expert. Performed By: #### 2 [id number] #### [facility] [address] [place] [address] [place] Absolute 0.6 E3/mcL Normal 0.0-0.7 [facility] Comment on above: Order Comment: Order Added by Discern Expert. Performed By: #### 2 [id number] #### [facility] [address] [place] [address] Monocytes/100 WBC (Bld) 6.0 % Normal 0.0-10.0 [facility] Comment on above: Order Comment: Order Added by Discern Expert. Performed By: #### 2 [id number] #### [facility] [address] [place] [address] Neutro Absolute 5.6 E3/mcL Normal 1.4-6.5 [facility] Comment on above: Order Comment: Order Added by Discern Expert. Performed By: #### 2 [id number] #### [facility] [address] [place] [address] Neutro Auto 55.5 % Normal 37.0-75.0 [facility] Comment on above: Order Comment: Order Added by Discern Expert. Performed By: #### 2 [id number] #### MOISÉS Ramon [address] [place] [address] CBC w/ Auto Diffon 8 Erythrocyte distribution width Ratio (RBC) 15.0 % High 11.5-14.5 [facility] Comment on above: Performed By: #### 2 [id number] #### MOISÉS Ramon [address] [place], [place] [address] Hematocrit Volume Fraction (Bld) 35.0 % Low 36.0-48.0 [facility] Comment on above: Performed By: #### 2 [id number] #### MOISÉS Ramon [address] [place], [place] [address] Hemoglobin mass conc (Bld) 11.5 g/dL Low 12.0-16.0 [facility] Comment on above: Performed By: #### 2 [id number] #### MOISÉS Ramon [address] [place], [place] [address] MCH Entitic mass (RBC) 31.8 pg High 27.0-31.0 [facility] Comment on above: Performed By: #### 2 [id number] #### MOISÉS [address] [address] MCHC mass conc (RBC) 32.9 g/dL Low 33.0-37.0 [facility] Comment on above: Performed By: #### 2 [id number] #### MOISÉS [address] [address] MCV Entitic volume (RBC) 96.6 fL Normal 78.0-100.0 [facility] Comment on above: Performed By: #### 2 [id number] #### MOISÉS [employer] [facility] [place] [address] Platelet mean volume Entitic volume (Bld) 9.1 fL Normal 7.4-11.0 [facility] Comment on above: Performed By: #### 2 [id number] #### MOISÉS [employer] [facility] [place] [address] Platelets #/vol (Bld) 379 E3/mcL Normal 130-400 [facility] Comment on above: Performed By: #### 2 [id number] #### MOISÉSKiana [employer] [address] [place] [address] RBC #/vol (Bld) 3.62 E6/mcL Low 3.90-5.40 [facility] Comment on above: Performed By: #### 2 857171 #### MOISÉSKiana [employer] [address] [place] [address] WBC #/vol (Bld) 10.0 E3/mcL Normal 3.6-11.0 [facility] Comment on above: Performed By: #### 2 [id number] #### MOISÉSKiana [employer] [facility] [place] [address] CMPon 07-14-2018 Albumin mass conc 3.5 g/dL Normal 3.4-5.0 [facility] Comment on above: Performed By: #### 2 [id number] #### MOISÉSKiana [employer] [address] [place] [address] Albumin/Globulin mass ratio 1.5 {ratio} Normal 1.1-1.9 [facility] Comment on above: Performed By: #### 2 667801 #### MOISÉSKiana [employer] [facility] [place] [address] Alk Phos 78 Int._Unit/L Normal 33-136 [facility] Comment on above: Performed By: #### 2 [id number] #### MOISÉSKiana [employer] [address] [place] [address] ALT enzyme act/vol 32 Int._Unit/L Normal 7-45 [facility] Comment on above: Performed By: #### 2 [id number] #### MOISÉSKiana [employer] [address] [place] [address] Anion gap molar conc 12 mmol/L Normal 10-20 [facility] Comment on above: Performed By: #### 2 796642 #### MOISÉSKiana [employer] [address] [place] [address] AST enzyme act/vol 20 Int._Unit/L Normal 9-39 [facility] Comment on above: Performed By: #### 2 [id number] #### MOISÉS [employer] [address] [place] [address] Bili Total 0.21 mg/dL Normal 0.00-1.20 [facility] Comment on above: Performed By: #### 2 [id number] #### [employer] [address] [place] [address] Calcium mass conc 8.6 mg/dL Normal 8.6-10.3 [facility] Comment on above: Performed By: #### 2 [id number] #### [employer] [address] [place] [address] Chloride molar conc 107 mmol/L Normal 98-107 [facility] Comment on above: Performed By: #### 2 234272 #### [employer] [address] [place] [address] CO2 molar conc 24.0 mmol/L Normal 21.0-32.0 [facility] Comment on above: Performed By: #### 2 [id number] #### [employer] [address] [place] [address] Creatinine mass conc 0.7 mg/dL Normal 0.5-1.1 [facility] Comment on above: Performed By: #### 2 690710 #### [employer] [address] [place] [address] Globulin mass conc (S) 2.0 g/dL Normal 2.0-4.0 [facility] Comment on above: Performed By: #### 2 535461 #### [employer] [address] [place] [address] Glucose mass conc 100 mg/dL High 70-99 [facility] Comment on above: Performed By: #### 2 652703 #### [employer] [address] [place] [address] Potassium molar conc 5.3 mmol/L Normal 3.5-5.3 [facility] Comment on above: Performed By: #### 2 078231 #### [employer] [address] [place] [address] Protein mass conc 5.9 g/dL Low 6.4-8.2 [facility] Comment on above: Performed By: #### 2 718005 #### [employer] [address] [place] [address] Sodium molar conc 137 mmol/L Normal 136-145 [facility] Comment on above: Performed By: #### 2 [id number] #### MOISÉS [employer] [address] [place] [address] Urea nitrogen mass conc 42 mg/dL High 6-23 [facility] Comment on above: Performed By: #### 2 294704 #### MOISÉS [employer] [address] [place] [address] Urea nitrogen/Creatinine mass ratio 60.0 ratio High 5.4-30.0 [facility] Comment on above: Performed By: #### 2 876215 #### [employer] [address] [place] [address] Carbamazepineon 07-14-2018 Carbamaz Lvl 5.4 microgram/mL Normal 4.0-12.0 [facility] Comment on above: Performed By: #### 2 642710 #### MOISÉS [employer] [address] [place] [address] AwnZ5haw 07-14-2018 Hemoglobin A1c/Hemoglobin.total mass fraction (Bld) 5.7 % Normal 4.0-6.3 [facility] Comment on above: Performed By: #### 1 [id number] #### MOISÉSKiana [employer] [address] [place] [address] Lipid Profileon 07-14-2018 Cholesterol in HDL mass conc 56 mg/dL Normal 40-60 [facility] Comment on above: Performed By: #### 2 150695 #### [employer] [address] [place] [address] Cholesterol in LDL mass conc 59 mg/dL Normal 0-130 [facility] Comment on above: Performed By: #### 2 [id number] #### [employer] [address] [place] [address] Cholesterol in VLDL mass conc 21 mg/dL Normal 0-40 [facility] Comment on above: Performed By: #### 2 [id number] #### [employer] [address] [place] [address] Cholesterol mass conc 136 mg/dL Normal 0-199 [facility] Comment on above: Performed By: #### 2 [id number] #### [employer] [address] [place] [id number] Triglyceride mass conc 105 mg/dL Normal 0-149 [facility] Comment on above: Result Comment: AGE DESIRABLE BORDERLINE HIGH 91 D - 9 Y 0 - 74 75 - 99 > 100 10 - 19 Y 0 - 89 90 - 129 > 130 20 - 24 Y 0 - 114 115 - 149 > 150 > 25 0 - 149 150 - 199 200 - 499 Performed By: #### 2 344189 #### MOISÉS [employer] [address] [place] [address] Magnesiumon 07-14-2018 Magnesium mass conc 2.2 mg/dL Normal 1.6-2.4 [facility] Comment on above: Performed By: #### 2 732368 #### MOIS[employer]S [employer] [address] [place] [address] TSHon 07-14-2018 Thyrotropin Qn 1.69 mcIU/mL Normal 0.30-5.60 [facility] Comment on above: Performed By: #### 1 [id number] #### MOISÉSKiana [employer] [address] [place] [address] Vit B12on 07-14-2018 Cobalamin (Vitamin B12) mass conc 125 pg/mL Low 180-914 [facility] Comment on above: Performed By: #### 1 [id number] #### [place] [address] Vitamin D 25 Hydroxyon 07-14 Vitamin D 25 Hydroxy 33.0 ng/mL Normal 30.0-100.0 [facility] Comment on above: Performed By: #### 2 [id number] #### [place] [id number] eGFRon 07-14-2018 GFR/1.73 sq M predicted among non-blacks MDRD vol rate/area (S/P/Bld) mL/min/{1.73_m2} Normal [facility] Comment on above: Order Comment: Order added by Discern Expert. Performed By: #### 2 [id number] #### MOISÉS [employer] [facility] [place] [id number] C Urineon 07-04-2018 C Urine Final Report: >100,0 00 cfu/ml Escherichia coli ESBL ORGANISM: ECESBL SUSCEPTIBILITY RESULTS Antibiotic OLIVA Dilutn OLIVA Interp ORGANISM: ECESBL Amox/Cla : <=8/4 S Amp : >16 R* Amp/Sul : 16/8 I Cefaz : >16 R* Cefo : >32 R Ceftaz : 16 R Ceftri : >32 R Cefur : >16 R* Cipro : >4 R Gent : <=4 S Levo : >4 R Meagan : <=1 S Nitro : <=32 S Pip/Victor Hugo : <=16 S Tetra : >8 R Tobra : <=4 S SXT : <=2/38 S Normal [facility] Comment on above: Performed By: #### 2 [id number] #### MOIS[employer]S [employer] [facility] [place] [address] UA Completeon 07-02-2018 Color Nom (U) Yellow Normal Yellow [facility] Comment on above: Performed By: #### 2 [id number] #### MOIS[employer] [address] [place] [address] Glucose mass conc (U) Negative Normal Negative [facility] Comment on above: Performed By: #### 2 116078 #### [facility] [employer] [address] [place] [address] Ketones Ql (U) Negative Normal Negative [facility] Comment on above: Performed By: #### 2 [id number] #### MOIS[employer] [address] [place] [address] UA Blood 1+ Abnormal Negative [facility] Comment on above: Performed By: #### 2 081065 #### [employer] [facility] [place] [address] UA Clarity SltCloudy Abnormal Clear [facility] Comment on above: Performed By: #### 2 187919 #### [employer] [address] [place] [address] UA Leuk Est Trace Normal Negative [facility] Comment on above: Performed By: #### 2 874674 #### [facility] [employer] [facility] [place] [address] UA Nitrite Positive Abnormal Negative [facility] Comment on above: Performed By: #### 2 609437 #### [employer] [address] [place] [address] UA pH 5.0 Normal 4.6-8.0 [facility] Comment on above: Performed By: #### 2 701752 #### MOISÉSKiana [employer] [address] [place] [address] UA Protein Negative Normal Negative [facility] Comment on above: Performed By: #### 2 276943 #### [employer] [address] [place] [address] UA Spec Grav 1.023 Normal 1.003-1.030 [facility] Comment on above: Performed By: #### 2 240174 #### [employer]IS[employer]S [employer] [address] [place] [address] UA Urobilinogen Negative Normal [facility] Comment on above: Result Comment: Due to a manufacturing issue, low positive urobilinogen results may be fasely positive. Correlate with urine bilirubin and additional clinical/laboratory findings to assess the risk of hemolytic anemia or liver disease. If clinically indicated, repeat testing with an alternate method is available by contacting the laboratory within 24 hours. Performed By: #### 2 [id number] #### MOIS[employer] [address] [place] [address] Urobilinogen Qn (U) Negative Normal Negative [facility] Comment on above: Performed By: #### 2 412222 #### [employer]IS[employer]S [employer] [facility] [place] [address] RBC #/vol (U) 0-3 Normal 0-3 [facility] Comment on above: Performed By: #### 2 626929 #### [employer] [address] [place] [address] UA Bacteria 4+ /HPF Abnormal None [facility] Comment on above: Performed By: #### 2 553052 #### [employer] [address] [place] [address] UA CA Ox Crystal 0-5 Abnormal None [facility] Comment on above: Performed By: #### 2 230604 #### [employer] [address] [place] [address] UA Mucous Trace Abnormal Trace [facility] Comment on above: Performed By: #### 2 834132 #### [employer]S [employer] [address] [place] [address] UA Squam Epithelial 0-5 Normal 0-5 [facility] Comment on above: Performed By: #### 2 062602 #### MOISÉS Ramon [address] [place] [address] UA WBC 0-5 Normal 0-5 [facility] Comment on above: Performed By: #### 2 337084 #### MOISÉS Ramon [address] [place] [address] Prealbuminon 06-19-2018 Prealbumin mass conc 26 mg/dL Normal 9-32 [facility] Comment on above: Result Comment: Perf ormed At: [facility] [address] [id number] Mary Goodson PhD Ph:[phone] Performed By: #### 1 [id number] #### MOIS[employer]S [employer] [address] [place] [address] CMPon 06-17-2018 Albumin mass conc 3.4 g/dL Normal 3.4-5.0 [facility] Comment on above: Performed By: #### 2 492753 #### [place]S [place] [address] [place] [address] Albumin/Globulin mass ratio 1.4 {ratio} Normal 1.1-1.9 [facility] Comment on above: Performed By: #### 2 632238 #### [facility] [address] [place] [address] Alk Phos 84 Int._Unit/L Normal 33-136 [facility] Comment on above: Performed By: #### 2 741375 #### MOISÉS Ramon [address] [place] [address] ALT enzyme act/vol 28 Int._Unit/L Normal 7-45 [facility] Comment on above: Performed By: #### 2 812163 #### MOISÉS Ramon [address] [place] [address] Anion gap molar conc 11 mmol/L Normal 10-20 [facility] Comment on above: Performed By: #### 2 575246 #### [employer] [address] [place] [address] AST enzyme act/vol 17 Int._Unit/L Normal 9-39 [facility] Comment on above: Performed By: #### 2 744236 #### [employer] [address] [place] [address] Bili Total 0.2 mg/dL Normal 0.0-1.2 [facility] Comment on above: Performed By: #### 2 373047 #### [employer] [address] [place] [address] Calcium mass conc 8.6 mg/dL Normal 8.6-10.3 [facility] Comment on above: Performed By: #### 2 874188 #### [employer] [address] [place] [address] Chloride molar conc 103 mmol/L Normal 98-107 [facility] Comment on above: Performed By: #### 2 524073 #### [employer] [address] [place] [address] CO2 molar conc 27.0 mmol/L Normal 21.0-32.0 [facility] Comment on above: Performed By: #### 2 785079 #### [employer] [address] [place] [address] Creatinine mass conc 0.4 mg/dL Low 0.5-1.1 [facility] Comment on above: Performed By: #### 2 159614 #### [employer] [address] [place] [address] Globulin mass conc (S) 3.0 g/dL Normal 2.0-4.0 [facility] Comment on above: Performed By: #### 2 687311 #### [employer] [address] [place] [address] Glucose mass conc 154 mg/dL High 70-99 [facility] Comment on above: Performed By: #### 2 979750 #### [employer] [address] [place] [address] Potassium molar conc 4.3 mmol/L Normal 3.5-5.3 [facility] Comment on above: Performed By: #### 2 307839 #### [employer] [address] [place] [address] Protein mass conc 5.9 g/dL Low 6.4-8.2 [facility] Comment on above: Performed By: #### 2 978016 #### MOISÉS Ramon [address] [place] [address] Sodium molar conc 137 mmol/L Normal 136-145 [facility] Comment on above: Performed By: #### 2 648952 #### MOISÉS Ramon [address] [place] [address] Urea nitrogen mass conc 21 mg/dL Normal 6-23 [facility] Comment on above: Performed By: #### 2 [id number] #### MOISÉS Ramon [facility] [place] [address] Urea nitrogen/Creatinine mass ratio 52.5 ratio High 5.4-30.0 [facility] Comment on above: Performed By: #### 2 [id number] #### MOISÉS Ramon [facility] [place] [address] eGFRon 06-17-2018 GFR/1.73 sq M predicted among non-blacks MDRD vol rate/area (S/P/Bld) mL/min/{1.73_m2} Normal [facility] Comment on above: Order Comment: Order added by Discern Expert. Performed By: #### 1 [id number] #### MOISÉS Ramon [address] [place] [address] CMPon 04-20-2018 Albumin mass conc 3.2 g/dL Normal 3.2-5.0 [facility] Comment on above: Performed By: #### 2 [id number] #### MOISÉS Ramon [facility] [place] [address] Albumin/Globulin mass ratio 1.0 {ratio} Low 1.1-1.9 [facility] Comment on above: Performed By: #### 2 [id number] #### MOISÉS Ramon [address] [place] [address] Alk Phos 69 Int._Unit/L Normal 42-121 [facility] Comment on above: Performed By: #### 2 [id number] #### MOISÉS Ramon [address] [place] [address] ALT enzyme act/vol 34 Int._Unit/L Normal 10-40 [facility] Comment on above: Performed By: #### 2 [id number] #### MOISÉS [employer] [address] [place] [address] AST enzyme act/vol 23 Int._Unit/L Normal 10-42 [facility] Comment on above: Performed By: #### 2 [id number] #### MOISÉS [employer] [address] [place] [address] Bili Total 0.3 mg/dL Normal 0.2-1.0 [facility] Comment on above: Performed By: #### 2 [id number] #### MOISÉS [employer] [address] [place] [address] Creatinine mass conc 0.6 mg/dL Normal 0.6-1.3 [facility] Comment on above: Performed By: #### 2 [id number] #### MOISÉS [employer] [address] [place] [address] Globulin mass conc (S) 3.1 g/dL Normal 2.0-4.0 [facility] Comment on above: Performed By: #### 2 [id number] #### MOISÉS [employer] [address] [place] [address] Protein mass conc 6.3 g/dL Low 6.4-8.3 [facility] Comment on above: Performed By: #### 2 [id number] #### MOISÉS [employer] [address] [place] [address] Urea nitrogen mass conc 21 mg/dL High 7-18 [facility] Comment on above: Performed By: #### 2 [id number] #### MOISÉS [employer] [address] [place] [address] Urea nitrogen/Creatinine mass ratio 35.0 ratio High 5.4-30.0 [facility] Comment on above: Performed By: #### 2 [id number] #### MOISÉS [employer] [address] [place] [address] Calcium mass conc 8.6 mg/dL Normal 8.4-10.2 [facility] Comment on above: Performed By: #### 2 [id number] #### MOISÉS [employer] [address] [place] [address] Chloride molar conc 91 mmol/L Low 98-107 [facility] Comment on above: Performed By: #### 2 [id number] #### MOISÉS [employer] [address] [place] [address] CO2 molar conc 28.8 mmol/L Normal 24.0-30.0 [facility] Comment on above: Performed By: #### 2 [id number] #### MOISÉS [employer] [address] [place] [address] Glucose mass conc 80 mg/dL Normal 70-99 [facility] Comment on above: Performed By: #### 2 [id number] #### MOISÉS [employer] [address] [place] [address] Potassium molar conc 4.3 mmol/L Normal 3.5-5.1 [facility] Comment on above: Performed By: #### 2 [id number] #### MOISÉS [employer] [address] [place] [address] Sodium molar conc 132 mmol/L Low 136-145 [facility] Comment on above: Performed By: #### 2 [id number] #### MOISÉS [employer] [address] [place] [address] Free T4on 04-20-2018 T4 free mass conc 1.04 ng/dL Normal 0.58-1.64 [facility] Comment on above: Result Comment: Stephanie ents receiving more than 5mg/day of biotin may have interference in test results. A sample should be taken no sooner than eight hours after previous dose. Performed By: #### 2 [id number] #### MOISÉS [employer] [address] [place] [address] [id number] 04-20-2018 Hemoglobin A1c/Hemoglobin.total mass fraction (Bld) 6.0 % Normal 4.0-6.3 [facility] Comment on above: Performed By: #### 3 [id number] #### MOISÉS Chemistry Manual Subsection [address] [place] [address] Lipid Profileon 04-20-2018 Cholesterol in HDL mass conc 48 mg/dL Normal >=41 [facility] Comment on above: Performed By: #### 3 [id number] #### MOISÉS [employer] [address] [place] [address] Cholesterol in LDL mass conc 61 mg/dL Normal 0-130 [facility] Comment on above: Result Comment: <100 OPTIMAL 100-129 NEAR / ABOVE OPTIMAL 130-159 BORDERLINE HIGH 160-189 HIGH >190 VERY HIGH CALC LDL NOT VALID WHEN TRIGLYCERIDE IS >400 MG/DL Performed By: #### 3 [id number] #### MOISÉS [employer] [address] [place] [address] Cholesterol in VLDL mass conc 24 mg/dL Normal [facility] Comment on above: Performed By: #### 3 [id number] #### MOISÉS [employer] [address] [place] [address] Cholesterol mass conc 133 mg/dL Normal 50-200 [facility] Comment on above: Result Comment: TOTA L CHOLEESTEROL: <200 NORMAL 200 - 239 BORDERLINE HIGH >240 HIGH Performed By: #### 3 [id number] #### MOISÉS [employer] [address] [place] [address] Triglyceride mass conc 119 mg/dL Normal 35-150 [facility] Comment on above: Result Comment: <150 NORMAL 150-199 BORDERLINE HIGH 200-499 HIGH >500 VERY HIGH Performed By: #### 3 [id number] #### MOISÉS [employer] [address] [place] [address] TSHon 04-20-2018 Thyrotropin Qn 2.53 mIU/m Normal 0.30-5.60 [facility] Comment on above: Performed By: #### 2 [id number] #### MOISÉS [employer] [address] [place] [address] eGFRon 04-20-2018 GFR/1.73 sq M predicted among non-blacks MDRD vol rate/area (S/P/Bld) mL/min/{1.73_m2} Normal [facility] Comment on above: Order Comment: Order added by Discern Expert. Performed By: #### 1 [id number] #### MOISÉS [employer] [address] [place] [address] XR Toe(s) Min 2 Views Lefton 04-07-2018 XR Toe(s) Min 2 Views Left Exam Date/Time: 2018 16:34 EDT Reason for Exam: bruised toe Report STUDY: XR Toe(s) Min 2 Views Left; 2018 4:34 pm INDICATION: bruised toe. COMPARISON: None. ACCESSION NUMBER(S): [id number] ORDERING CLINICIAN: Luis Daniel James TECHNIQUE: Three views of the left great toe including AP, oblique and lateral projections were obtained. FINDINGS: There is no displaced fracture or dislocation identified. Mild hypertrophic degenerative changes are seen in the left 1st metatarsophalangeal joint. IMPRESSION: 1. No fracture or dislocation. FINAL REPORT Dictated: 04/07/2018 9:04 am Lázaro Maya MD Signed (Electronic Signature): 04/07/2018 9:04 am Signed by: Lázaro Maya MD Technologist: HLR Normal [facility] TSHon 12-24-2017 Thyrotropin Qn 1.28 uIU/mL Normal 0.320-5.000 [facility] Comment on above: Result Comment: Samp les from patients routinely receiving high dose biotin therapy (100-300 mg/day) may show falsely decreased results. Please correlate clinically. Performed By: #### T SH #### Unless otherwise noted, all testing performed by [place] [address] CLIA: [id number] Technical Director: Gabriele Swain M.D. Urinalysis, Routineon 2017 Bacteria LM.HPF #/area (Urine sed) Many Abnormal NS;RARE [facility] Comment on above: Performed By: #### U A #### Unless otherwise noted, all testing performed by [place] [address] CLIA: [id number] Technical Director: Gabriele Swain M.D. Bilirubin,Urine Negative Normal NEG;NEGATIVE [facility] Comment on above: Performed By: #### U A #### Unless otherwise noted, all testing performed by [place] [address] CLIA: [id number] Technical Director: Gabriele Swain M.D. Blood,Urine Negative Normal NEG;NEGATIVE [facility] Comment on above: Performed By: #### U A #### Unless otherwise noted, all testing performed by [place] [phone] CLIA: [id number] Technical Director: Gabriele Swain M.D. Character Nom (U) Slightly Hazy Normal [facility] Comment on above: Performed By: #### U A #### Unless otherwise noted, all testing performed by [place] [phone] CLIA: [id number] Technical Director: Gabriele Swain M.D. Color Nom (U) Yellow Normal [facility] Comment on above: Performed By: #### U A #### Unless otherwise noted, all testing performed by [place] [phone] CLIA: [id number] Technical Director: Gabriele Swain M.D. Glucose Ql (U) Negative Normal NEG;NEGATIVE [facility] Comment on above: Performed By: #### U A #### Unless otherwise noted, all testing performed by [place] [phone] CLIA: [id number] Technical Director: Gabriele Swain M.D. Ketone,Urine Negative Normal NEG;NEGATIVE [facility] Comment on above: Performed By: #### U A #### Unless otherwise noted, all testing performed by [place] [phone] CLIA: [id number] Technical Director: Gabriele Swain M.D. Leuk.Esterase,Urine Moderate Abnormal Negative [facility] Comment on above: Performed By: #### U A #### Unless otherwise noted, all testing performed by [place] [address] CLIA: [id number] Technical Director: Gabriele Swain M.D. Nitrite,Urine Positive Abnormal NEG;NEGATIVE [facility] Comment on above: Performed By: #### U A #### Unless otherwise noted, all testing performed by [place] [address] CLIA: [id number] Technical Director: Gabriele Swain M.D. pH (U) 7.5 [pH] Normal 4.5-8.0 [facility] Comment on above: Performed By: #### U A #### Unless otherwise noted, all testing performed by [place] [address] CLIA: [id number] Technical Director: Gabriele Swain M.D. Protein mass conc (U) Negative Normal NEG;NEGATIVE [facility] Comment on above: Performed By: #### U A #### Unless otherwise noted, all testing performed by [place] [address] CLIA: [id number] Technical Director: Gabriele Swain M.D. RBC,Urine 1 /HPF Normal 0-5 [facility] Comment on above: Performed By: #### U A #### Unless otherwise noted, all testing performed by [place] [address] CLIA: [id number] Technical Director: Gabriele Swain M.D. Renal Tubular Epithelial < 1 Normal <1 [facility] Comment on above: Performed By: #### U A #### Unless otherwise noted, all testing performed by [place] [address] CLIA: [id number] Technical Director: Gabriele Swain M.D. Specific Simms,Urine 1.013 Normal 1.003-1.029 [facility] Comment on above: Performed By: #### U A #### Unless otherwise noted, all testing performed by [place] [address] CLIA: [id number] Technical Director: Gabriele Swain M.D. Squamous Epithelial 1 /HPF Normal 0-40 [facility] Comment on above: Performed By: #### U A #### Unless otherwise noted, all testing performed by [place] [address] CLIA: [id number] Technical Director: Gabriele Swain M.D. Trans. Epithelial < 1 Normal 0-3 [facility] Comment on above: Performed By: #### U A #### Unless otherwise noted, all testing performed by [place] [phone] CLIA: [id number] Technical Director: Gabriele Swain M.D. Urobilinogen,Urine < 2.0 High 0.2-1 [facility] Comment on above: Performed By: #### U A #### Unless otherwise noted, all testing performed by [place] [address] CLIA: [id number] Technical Director: Gabriele Swain M.D. WBC,Urine 10 /HPF High 0-5 [facility] Comment on above: Performed By: #### U A #### Unless otherwise noted, all testing performed by [place] [address] CLIA: [id number] Technical Director: Gabriele Swain M.D. Albuminon 11-10-2017 Albumin mass conc 3.3 g/dL Normal 3.2-5.2 [facility] Comment on above: Performed By: #### A Swapnil KRUGER, PROT #### Unless otherwise noted, all testing performed by [place] [address] CLIA: [id number] Technical Director: Gabriele Swain M.D. Potassiumon 11-10-2017 Potassium molar conc 4.4 mmol/L Normal 3.5-5.1 [facility] Comment on above: Performed By: #### A Swapnil KRUGER, PROT #### Unless otherwise noted, all testing performed by [place] [address] CLIA: [id number] Technical Director: Gabriele Swain M.D. Protein, Totalon 11-10-2017 Protein mass conc 6.5 g/dL Normal 6.0-8.0 [facility] Comment on above: Performed By: #### A Swapnil KRUGER, PROT #### Unless otherwise noted, all testing performed by [place] [address] CLIA: [id number] Technical Director: Gabriele Swain M.D. Comprehensive Metabolic Pane jus 10-13-2017 Alanine aminotransferase (ALT) 30 U/L Normal 14-65 [facility] Comment on above: Result Comment: This test result might be falsely depressed or falsely elevated on samples drawn from patients taking Sulfasalazine and Sulfapyridine. Venipuncture should occur prior to taking either of these drugs. Performed By: #### F T4, TSH, CMET, LIPID, HBA1C #### Unless otherwise noted, all testing performed by [place] [address] CLIA: [id number] Technical Director: Gabriele Swain M.D. Albumin 3.1 g/dL Low 3.2-5.2 [facility] Comment on above: Performed By: #### F T4, TSH, CMET, LIPID, HBA1C #### Unless otherwise noted, all testing performed by [place] [address] CLIA: [id number] Technical Director: Gabriele Swain M.D. Alkaline phosphatase (ALP) 72 U/L Normal 40-150 [facility] Comment on above: Performed By: #### F T4, TSH, CMET, LIPID, HBA1C #### Unless otherwise noted, all testing performed by [place] [address] CLIA: [id number] Technical Director: Gabriele Swain M.D. Aspartate aminotransferase (AST) 17 U/L Normal 0-45 [facility] Comment on above: Result Comment: This test result might be falsely depressed or falsely elevated on samples drawn from patients taking Sulfasalazine and Sulfapyridine. Venipuncture should occur prior to taking either of these drugs. Performed By: #### F T4, TSH, CMET, LIPID, HBA1C #### Unless otherwise noted, all testing performed by [place] [address] CLIA: [id number] Technical Director: Gabriele Swain M.D. Bilirubin mass conc 0.4 mg/dL Normal 0.3-1.2 [facility] Comment on above: Performed By: #### F T4, TSH, CMET, LIPID, HBA1C #### Unless otherwise noted, all testing performed by [place] [address] CLIA: [id number] Technical Director: Gabriele Swain M.D. Calcium 8.6 mg/dL Normal 8.4-10.2 [facility] Comment on above: Performed By: #### F T4, TSH, CMET, LIPID, HBA1C #### Unless otherwise noted, all testing performed by [place] [address] CLIA: [id number] Technical Director: Gabriele Swain M.D. Chloride 97 mmol/L Low 98-108 [facility] Comment on above: Performed By: #### F T4, TSH, CMET, LIPID, HBA1C #### Unless otherwise noted, all testing performed by [place] [address] CLIA: [id number] Technical Director: Gabriele Swain M.D. CO2 28 mmol/L Normal 21-32 [facility] Comment on above: Performed By: #### F T4, TSH, CMET, LIPID, HBA1C #### Unless otherwise noted, all testing performed by [place] [address] CLIA: [id number] Technical Director: Gabriele Swain M.D. Creatinine 0.46 mg/dL Low 0.60-1.20 [facility] Comment on above: Performed By: #### F T4, TSH, CMET, LIPID, HBA1C #### Unless otherwise noted, all testing performed by [place] [address] CLIA: [id number] Technical Director: Gabriele Swain M.D. eGFR (black) mL/min/{1.73_m2} Normal [facility] Comment on above: Result Comment: Afri can [place]ran GFR Calc Performed By: #### F T4, TSH, CMET, LIPID, HBA1C #### Unless otherwise noted, all testing performed by [place] [address] CLIA: [id number] Technical Director: Gabriele Swain M.D. eGFR (non-black) mL/min/{1.73_m2} Normal [facility] Comment on above: Result Comment: Non- GFR Calc eGFR is an estimated Glomerular Filtration Rate based on the value of the patient's serum creatinine. In outpatients, eGFR should be used as a helpful tool in screening for CKD. In inpatients or patients with acute renal failure, eGFR represents the GFR at the moment of the draw and should be used with caution. Performed By: #### F T4, TSH, CMET, LIPID, HBA1C #### Unless otherwise noted, all testing performed by [place] [address] CLIA: [id number] Technical Director: Gabriele Swain M.D. Glucose 80 mg/dL Invalid Interpretation Code 70 - 99 mg/dL [facility] Glucose mass conc 80 mg/dL Normal 70-99 [facility] Comment on above: Result Comment: This test result might be falsely depressed or falsely elevated on samples drawn from patients taking Sulfasalazine and Sulfapyridine. Venipuncture should occur prior to taking either of these drugs. Performed By: #### F T4, TSH, CMET, LIPID, HBA1C #### Unless otherwise noted, all testing performed by [place] [address] CLIA: [id number] Technical Director: Gabriele Swain M.D. Interpretation and review of laboratory results Abnormal Invalid Interpretation Code [facility] Potassium 4.3 mmol/L Normal 3.5-5.1 [facility] Comment on above: Performed By: #### F T4, TSH, CMET, LIPID, HBA1C #### Unless otherwise noted, all testing performed by [place] [address] CLIA: [id number] Technical Director: Gabriele Swain M.D. Protein 6.6 g/dL Normal 6.0-8.0 [facility] Comment on above: Performed By: #### F T4, TSH, CMET, LIPID, HBA1C #### Unless otherwise noted, all testing performed by [place] [address] CLIA: [id number] Technical Director: Gabriele Swain M.D. Sodium 133 mmol/L Low 135-145 [facility] Comment on above: Performed By: #### F T4, TSH, CMET, LIPID, HBA1C #### Unless otherwise noted, all testing performed by [place] [address] CLIA: [id number] Technical Director: Gabriele Swain M.D. Urea nitrogen 13 mg/dL Normal 8-25 [facility] Comment on above: Performed By: #### F T4, TSH, CMET, LIPID, HBA1C #### Unless otherwise noted, all testing performed by [place] [address] CLIA: [id number] Technical Director: Gabriele Swain M.D. Urine, bilirubin presence 0.4 mg/dL Invalid Interpretation Code 0.3 - 1.2 mg/dL [facility] Hemoglobin A1con 10-13-2017 HbA1c 5.4 % Normal 4.1-6.5 [facility] Comment on above: Performed By: #### F T4, TSH, CMET, LIPID, HBA1C #### Unless otherwise noted, all testing performed by [place] [address] CLIA: [id number] Technical Director: Gabriele Swain M.D. Lipid Panelon 10-13-2017 Cholesterol 143 mg/dL Normal 100-199 [facility] Comment on above: Performed By: #### F T4, TSH, CMET, LIPID, HBA1C #### Unless otherwise noted, all testing performed by [place] [address] CLIA: [id number] Technical Director: Gabriele Swain M.D. Cholesterol in VLDL mass conc 16 mg/dL Normal 5-40 [facility] Comment on above: Performed By: #### F T4, TSH, CMET, LIPID, HBA1C #### Unless otherwise noted, all testing performed by [place] [address] CLIA: [id number] Technical Director: Gabriele Swain M.D. Cholesterol to HDL Ratio 2.2 {ratio} Low 3.2-5.0 [facility] Comment on above: Result Comment: Johnathan le Coronary Heart Disease Risk Factor (CHDRF): Average risk= 4.4 1/2 Average risk= 3.3 2 times Average risk= 7.1 Performed By: #### F T4, TSH, CMET, LIPID, HBA1C #### Unless otherwise noted, all testing performed by [place] [address] CLIA: [id number] Technical Director: Gabriele Swain M.D. HDL Cholesterol 65 mg/dL High 40-59 [facility] Comment on above: Performed By: #### F T4, TSH, CMET, LIPID, HBA1C #### Unless otherwise noted, all testing performed by [place] [address] CLIA: [id number] Technical Director: Gabriele Swain M.D. LDL Cholesterol 62 mg/dL Normal 10-150 [facility] Comment on above: Performed By: #### F T4, TSH, CMET, LIPID, HBA1C #### Unless otherwise noted, all testing performed by [place] [address] CLIA: [id number] Technical Director: Gabriele Swain M.D. Triglyceride 80 mg/dL Normal 25-120 [facility] Comment on above: Performed By: #### F T4, TSH, CMET, LIPID, HBA1C #### Unless otherwise noted, all testing performed by [place] [address] CLIA: [id number] Technical Director: Gabriele Swain M.D. VLDL 16 mg/dL Invalid Interpretation Code 5 - 40 mg/dL [facility] T4, Freeon 10-13-2017 Thyroxine (T4) free 1.1 ng/dL Normal 0.7-1.7 [facility] Comment on above: Result Comment: Samp les from patients routinely receiving high dose biotin therapy (100-300 mg/day) may show falsely decreased results. Please correlate clinically. Performed By: #### F T4, TSH, CMET, LIPID, HBA1C #### Unless otherwise noted, all testing performed by [place] [address] CLIA: [id number] Technical Director: Gabriele Swain M.D. TSHon 10-13-2017 Thyroid stimulating hormone (TSH) 1.30 uIU/mL Invalid Interpretation Code 0.320 - 5.000 [facility] Thyrotropin Qn 1.30 uIU/mL Normal 0.320-5.000 [facility] Comment on above: Result Comment: Samp les from patients routinely receiving high dose biotin therapy (100-300 mg/day) may show falsely decreased results. Please correlate clinically. Performed By: #### F T4, TSH, CMET, LIPID, HBA1C #### Unless otherwise noted, all testing performed by [address] [place], [place] [address] CLIA: [id number] Technical Director: Gabriele Swain M.D. CBC and Differentialon 07-07 Basophils Auto #/vol (Bld) 0.1 K/mcL Invalid Interpretation Code 0 - 0.2 [facility] Basophils/100 WBC Auto (Bld) 0.8 % Invalid Interpretation Code [facility] Eosinophils 0.6 K/mcL High 0 - 0.5 [facility] Eosinophils/100 leukocytes 6.9 % Invalid Interpretation Code [facility] Erythrocyte distribution width Auto Ratio (RBC) 13.3 % Invalid Interpretation Code 10 - 14.4 % [facility] Erythrocytes (RBC) 4.28 M/mcL Invalid Interpretation Code 3.7 - 5.0 [facility] Hematocrit (HCT) 40.4 % Invalid Interpretation Code 34.4 - 44.8 % [facility] Hemoglobin mass conc (Bld) 13.5 g/dL Invalid Interpretation Code 11.6 - 15.4 g/dL [facility] Lymphocytes 1.9 K/mcL Invalid Interpretation Code 1.0 - 3.7 [facility] Lymphocytes/100 leukocytes 19.9 % Invalid Interpretation Code [facility] MCH 31.5 pg Invalid Interpretation Code 27.9 - 33.9 pg [facility] MCHC mass conc (RBC) 33.4 g/dL Invalid Interpretation Code 33.1 - 35.1 g/dL [facility] MCV 94.3 fL Invalid Interpretation Code 82.6 - 98.9 [facility] Monocytes 0.6 K/mcL Invalid Interpretation Code 0.1 - 0.6 [facility] Monocytes/100 leukocytes 6.9 % Invalid Interpretation Code [facility] Neutrophils 6.1 K/mcL Invalid Interpretation Code 1.2 - 6.9 [facility] Platelet mean volume (PMV) 8.1 fL Invalid Interpretation Code 7.0 - 10.6 [facility] Platelets 366 K/mcL Invalid Interpretation Code 162 - 402 [facility] Segmented Neut 65.5 % Invalid Interpretation Code [facility] WBC (Leukocytes) 9.3 K/mcL Invalid Interpretation Code 3.4 - 10.6 [facility] Carbamazepine Level, Totalon 07-07-2017 Thyroid stimulating hormone (TSH) 8.5 mcg/mL Invalid Interpretation Code 4.0 - 12.0 [facility] Comment on above: Result should be cor related with last dose as reflected in the medical record. Comprehensive Metabolic Pane jus 07-07-2017 Alanine aminotransferase (ALT) 32 U/L Invalid Interpretation Code 14 - 65 U/L [facility] Comment on above: This test result miguel angel ht be falsely depressed or falsely elevated on samples drawn from patients taking Sulfasalazine and Sulfapyridine. Venipuncture should occur prior to taking either of these drugs. Albumin 3.3 g/dL Invalid Interpretation Code 3.2 - 5.2 g/dL [facility] Alkaline phosphatase (ALP) 76 U/L Invalid Interpretation Code 40 - 150 U/L [facility] Aspartate aminotransferase (AST) 18 U/L Invalid Interpretation Code 0 - 45 U/L [facility] Comment on above: This test result miguel angel ht be falsely depressed or falsely elevated on samples drawn from patients taking Sulfasalazine and Sulfapyridine. Venipuncture should occur prior to taking either of these drugs. Bilirubin (total) 0.4 mg/dL Invalid Interpretation Code 0.3 - 1.2 mg/dL [facility] Calcium 8.6 mg/dL Invalid Interpretation Code 8.4 - 10.2 mg/dL [facility] Chloride 93 mmol/L Low 98 - 108 mmol/L [facility] CO2 27 mmol/L Invalid Interpretation Code 21 - 32 mmol/L [facility] Creatinine 0.43 mg/dL Low 0.6 - 1.2 mg/dL [facility] eGFR (black) mL/min/{1.73_m2} Invalid Interpretation Code ml/min/1.73s q.m [facility] Comment on above: GFR Calc eGFR (non-black) mL/min/{1.73_m2} Invalid Interpretation Code ml/min/1.73s q.m [facility] Comment on above: Non- GFR Calc eGFR is an estimated Glomerular Filtration Rate based on the value of the patient's serum creatinine. In outpatients, eGFR should be used as a helpful tool in screening for CKD. In inpatients or patients with acute renal failure, eGFR represents the GFR at the moment of the draw and should be used with caution. Glucose mass conc 84 mg/dL Invalid Interpretation Code 70 - 99 mg/dL [facility] Comment on above: This test result miguel angel ht be falsely depressed or falsely elevated on samples drawn from patients taking Sulfasalazine and Sulfapyridine. Venipuncture should occur prior to taking either of these drugs. Interpretation and review of laboratory results Abnormal Invalid Interpretation Code [facility] Potassium molar conc 4.2 mmol/L Invalid Interpretation Code 3.5 - 5.1 mmol/L [facility] Protein 7.2 g/dL Invalid Interpretation Code 6 - 8 g/dL [facility] Sodium 129 mmol/L Low 135 - 145 mmol/L [facility] Urea nitrogen 8 mg/dL Invalid Interpretation Code 8 - 25 mg/dL [facility] Hemoglobin A1con 07-07-2017 Hemoglobin A1c/Hemoglobin.total mass fraction (Bld) 5.3 % Invalid Interpretation Code 4.1 - 6.5 % [facility] Lipid Panelon 07-07-2017 Cholesterol 152 mg/dL Invalid Interpretation Code 100 - 199 mg/dL [facility] Cholesterol in VLDL mass conc 15 mg/dL Invalid Interpretation Code 5 - 40 mg/dL [facility] Cholesterol to HDL Ratio 2.2 {ratio} Low 3.2 - 5.0 [facility] Comment on above: Female Coronary Hear t Disease Risk Factor (CHDRF): Average risk= 4.4 1/2 Average risk= 3.3 2 times Average risk= 7.1 HDL Cholesterol 68 mg/dL High 40 - 59 mg/dL [facility] LDL Cholesterol 69 mg/dL Invalid Interpretation Code 10 - 150 mg/dL [facility] Triglyceride 77 mg/dL Invalid Interpretation Code 25 - 120 mg/dL [facility] TSHon 07-07-2017 Thyroid stimulating hormone (TSH) 1.00 uIU/mL Invalid Interpretation Code 0.320 - 5.000 [facility] Comment on above: Samples from patient s routinely receiving high dose biotin therapy (100-300 mg/day) may show falsely decreased results. Please correlate clinically. Urinalysison 04-23-2017 Bilirubin, Urine Negative Invalid Interpretation Code NEG;NEGATIVE [facility] Blood, Urine Negative Invalid Interpretation Code NEG;NEGATIVE [facility] Interpretation and review of laboratory results Abnormal Invalid Interpretation Code [facility] Nitrite, Urine Negative Invalid Interpretation Code NEG;NEGATIVE [facility] Protein, Urine 30 mg/dL High <30 [facility] RBCs, Urine 1 /HPF Invalid Interpretation Code 0 - 5 [facility] Squamous Epithelial 3 /HPF Invalid Interpretation Code 0 - 40 [facility] Urine, character Hazy Invalid Interpretation Code [facility] Urine, color Yellow Invalid Interpretation Code [facility] Urine, glucose presence Negative Invalid Interpretation Code NEG;NEGATIVE mg/dL [facility] Urine, ketones presence Trace Abnormal NEG; NEGATIVE mg/dL [facility] Urine, leukocyte esterase presence Negative Invalid Interpretation Code Negative [facility] Urine, pH 6.0 [pH] Invalid Interpretation Code 4.5 - 8.0 [facility] Urine, specific gravity 1.020 1 Invalid Interpretation Code 1.003 - 1.029 [facility] Urobilinogen, Urine < 2.0 Invalid Interpretation Code <2 mg/dL [facility] WBCs, Urine 1 /HPF Invalid Interpretation Code 0 - 5 [facility] Urinalysison 04-18-2017 Bilirubin, Urine Negative Invalid Interpretation Code NEG;NEGATIVE [facility] Blood, Urine Negative Invalid Interpretation Code NEG;NEGATIVE [facility] Interpretation and review of laboratory results Abnormal Invalid Interpretation Code [facility] Mucus, Urine Few Abnormal None Seen [facility] Nitrite, Urine Positive Abnormal NEG;NEGATIVE [facility] Protein, Urine 100 mg/dL High <30 [facility] Squamous Epithelial 19 /HPF Invalid Interpretation Code 0 - 40 [facility] Triple Phosphate, Crystal Many Abnormal None Seen /HPF [facility] Urine, bacteria in sediment Many Abnormal NS;RARE /HPF [facility] Urine, character Cloudy Invalid Interpretation Code [facility] Urine, color Brooke Invalid Interpretation Code [facility] Urine, glucose presence Negative Invalid Interpretation Code NEG;NEGATIVE mg/dL [facility] Urine, ketones presence Trace Abnormal NEG; NEGATIVE mg/dL [facility] Urine, leukocyte esterase presence Large Abnormal Negative [facility] Urine, pH 9.0 [pH] High 4.5 - 8.0 [facility] Urine, specific gravity 1.027 1 Invalid Interpretation Code 1.003 - 1.029 [facility] Urobilinogen, Urine < 2.0 Invalid Interpretation Code <2 mg/dL [facility] WBCs, Urine 14 /HPF High 0 - 5 [facility] CBC and Differentialon 04-14 Basophils 0.1 K/mcL Invalid Interpretation Code 0 - 0.2 [facility] Basophils 0.9 % Invalid Interpretation Code [facility] Eosinophils 0.6 K/mcL High 0 - 0.5 [facility] Erythrocytes (RBC) 4.04 M/mcL Invalid Interpretation Code 3.7 - 5.0 [facility] Hematocrit (HCT) 36.9 % Invalid Interpretation Code 34.4 - 44.8 % [facility] Hemoglobin (HGB) 12.9 g/dL Invalid Interpretation Code 11.6 - 15.4 g/dL [facility] Lymphocytes 2.1 K/mcL Invalid Interpretation Code 1.0 - 3.7 [facility] MCH 32.0 pg Invalid Interpretation Code 27.9 - 33.9 pg [facility] MCHC 35.0 g/dL Invalid Interpretation Code 33.1 - 35.1 g/dL [facility] MCV 91.4 fL Invalid Interpretation Code 82.6 - 98.9 [facility] Monocytes 0.5 K/mcL Invalid Interpretation Code 0.1 - 0.6 [facility] Neutrophils 4.1 K/mcL Invalid Interpretation Code 1.2 - 6.9 [facility] Platelet mean volume (PMV) 7.6 fL Invalid Interpretation Code 7.0 - 10.6 [facility] Platelets 361 K/mcL Invalid Interpretation Code 162 - 402 [facility] RDW-CA 13.7 % Invalid Interpretation Code 10 - 14.4 % [facility] Segmented Neut 55.2 % Invalid Interpretation Code [facility] T8 suppressor/100 cells 8.5 10*3/uL Invalid Interpretation Code [facility] T8 suppressor/100 cells 28.8 10*3/uL Invalid Interpretation Code [facility] T8 suppressor/100 cells 6.6 10*3/uL Invalid Interpretation Code [facility] WBC (Leukocytes) 7.4 K/mcL Invalid Interpretation Code 3.4 - 10.6 [facility] Comprehensive Metabolic Pane jus 04-14-2017 Alanine aminotransferase (ALT) 32 U/L Invalid Interpretation Code 14 - 65 U/L [facility] Albumin 3.2 g/dL Invalid Interpretation Code 3.2 - 5.2 g/dL [facility] Alkaline phosphatase (ALP) 73 U/L Invalid Interpretation Code 40 - 150 U/L [facility] Aspartate aminotransferase (AST) 21 U/L Invalid Interpretation Code 0 - 45 U/L [facility] Calcium 8.6 mg/dL Invalid Interpretation Code 8.4 - 10.2 mg/dL [facility] Chloride 95 mmol/L Low 98 - 108 mmol/L [facility] CO2 27 mmol/L Invalid Interpretation Code 21 - 32 mmol/L [facility] Creatinine 0.51 mg/dL Low 0.6 - 1.2 mg/dL [facility] eGFR (black) mL/min/{1.73_m2} Invalid Interpretation Code ml/min/1.73s q.m [facility] eGFR (non-black) mL/min/{1.73_m2} Invalid Interpretation Code ml/min/1.73s q.m [facility] Glucose 77 mg/dL Invalid Interpretation Code 70 - 99 mg/dL [facility] Interpretation and review of laboratory results Abnormal Invalid Interpretation Code [facility] Potassium 4.1 mmol/L Invalid Interpretation Code 3.5 - 5.1 mmol/L [facility] Protein 7.0 g/dL Invalid Interpretation Code 6 - 8 g/dL [facility] Sodium 133 mmol/L Low 135 - 145 mmol/L [facility] Urea nitrogen 10 mg/dL Invalid Interpretation Code 8 - 25 mg/dL [facility] Urine, bilirubin presence 0.2 mg/dL Low 0.3 - 1.2 mg/dL [facility] Hemoglobin A1con 04-14-2017 HbA1c 5.5 % Invalid Interpretation Code 4.1 - 6.5 % [facility] T4, Freeon 04-14-2017 Thyroxine (T4) free 1.2 ng/dL Invalid Interpretation Code 0.7 - 1.7 ng/dL [facility] TSHon 04-14-2017 Thyroid stimulating hormone (TSH) 1.20 uIU/mL Invalid Interpretation Code 0.320 - 5.000 [facility] Vital Signs Date Time Vital Sign Value Performing Clinician Facility 01-31-2025 10:37-0400 Body temperature 98.2 [degF] Dr. Goldie Mobley MD Work Phone: [facility] 01-31-2025 10:37-0400 Diastolic blood pressure 57 mm[Hg] Dr. Goldie Mobley MD Work Phone: [facility] 01-31-2025 10:37-0400 Heart rate 87 /min Dr. Goldie Mobley MD Work Phone: [facility] 01-31-2025 10:37-0400 Respiratory rate 16 /min Dr. Goldie Mobley MD Work Phone: [facility] 01-31-2025 10:37-0400 SaO2% (BldA) [Mass fraction] 95 % Dr. Goldie Mobley MD Work Phone: [facility] 01-31-2025 10:37-0400 Systolic blood pressure 121 mm[Hg] Dr. Goldie Mobley MD Work Phone: [facility] 01-18-2025 10:53-0400 Diastolic blood pressure 72 mm[Hg] Soto Tony Jr., DPM Work Phone: [facility] 01-18-2025 10:53-0400 Heart rate 92 /min Soto Tony Jr., DPM Work Phone: [facility] 01-18-2025 10:53-0400 Systolic blood pressure 148 mm[Hg] Soto Tony Jr., DPM Work Phone: [facility] 12-27-2024 10:37-0400 Diastolic blood pressure 76 mm[Hg] Tremayne Kip DO Work Phone: [facility] 12-27-2024 10:37-0400 Systolic blood pressure 143 mm[Hg] Tremayne Kip DO Work Phone: [facility] 12-27-2024 10:29-0400 Heart rate 81 /min Tremayne Kip DO Work Phone: [facility] 12-27-2024 10:29-0400 Respiratory rate 16 /min Tremayne Kip DO Work Phone: [facility] 12-27-2024 10:29-0400 SaO2% (BldA) [Mass fraction] 92 % Tremayne Kip DO Work Phone: [facility] 12-26-2024 08:10-0400 Diastolic blood pressure 94 mm[Hg] [address] 12-26-2024 08:10-0400 Heart rate 80 /min [address] 12-26-2024 08:10-0400 Respiratory rate 20 /min [address] 12-26-2024 08:10-0400 SaO2% (BldA) [Mass fraction] 94 % [address] 12-26-2024 08:10-0400 Systolic blood pressure 128 mm[Hg] [address] 12-26-2024 07:26-0400 Body temperature 98.8 [degF] [address] 12-26-2024 06:32-0400 Body height 157.[address] 12-26-2024 06:32-0400 Body mass index (BMI) [Ratio] 23.17 kg/m2 [address] 12-26-2024 06:32-0400 Body weight 57.[address] 11-16-2024 10:35-0400 Body height 154.9 cm Tremayne Kip DO Work Phone: [facility] 11-16-2024 10:35-0400 Body mass index (BMI) [Ratio] 23.43 kg/m2 Tremayne Kip DO Work Phone: [facility] 11-16-2024 10:35-0400 Body temperature 98.1 [degF] Tremayne Kip DO Work Phone: [facility] 11-16-2024 10:35-0400 Body weight 56.25 kg Tremayne Kip DO Work Phone: [facility] 11-16-2024 10:35-0400 Diastolic blood pressure 64 mm[Hg] Tremayne Kip DO Work Phone: [facility] 11-16-2024 10:35-0400 Heart rate 85 /min Tremayne Kip DO Work Phone: [facility] 11-16-2024 10:35-0400 Respiratory rate 16 /min Tremayne Kip DO Work Phone: [facility] 11-16-2024 10:35-0400 SaO2% (BldA) [Mass fraction] 92 % Tremayne Kip DO Work Phone: [facility] 11-16-2024 10:35-0400 Systolic blood pressure 153 mm[Hg] Tremayne Kip DO Work Phone: [facility] 10-19-2024 10:14-0400 Diastolic blood pressure 65 mm[Hg] Soto Tony Jr., DPM Work Phone: [facility] 10-19-2024 10:14-0400 Heart rate 83 /min Soto Tony Jr., DPM Work Phone: [facility] 10-19-2024 10:14-0400 Systolic blood pressure 158 mm[Hg] Soto Cecily Jr., DPM Work Phone: [facility] 10-17-2024 10:39-0400 Body mass index (BMI) [Ratio] 23.58 kg/m2 Tremayne Kip DO Work Phone: [facility] 10-17-2024 10:39-0400 Body weight 56.61 kg Tremayne Kip DO Work Phone: [facility] 10-17-2024 10:39-0400 Diastolic blood pressure 82 mm[Hg] Tremayne Kip DO Work Phone: [facility] 10-17-2024 10:39-0400 Heart rate 84 /min Tremayne Kip DO Work Phone: [facility] 10-17-2024 10:39-0400 Respiratory rate 16 /min Tremayne Kip DO Work Phone: [facility] 10-17-2024 10:39-0400 SaO2% (BldA) [Mass fraction] 92 % Tremayne Kip DO Work Phone: [facility] 10-17-2024 10:39-0400 Systolic blood pressure 156 mm[Hg] Tremayne Kip DO Work Phone: [facility] 09-19-2024 14:05-0500 Body height 154.9 cm Trmeayne Kip DO Work Phone: [facility] 09-19-2024 14:05-0500 Body mass index (BMI) [Ratio] 23.52 kg/m2 Tremayne Kip DO Work Phone: [facility] 09-19-2024 14:05-0500 Body temperature 96.91 [degF] Tremayne Kip DO Work Phone: [facility] 09-19-2024 14:05-0500 Body weight 56.47 kg Tremayne Kip DO Work Phone: [facility] 09-19-2024 14:05-0500 Diastolic blood pressure 70 mm[Hg] Tremayne Kip DO Work Phone: [facility] 09-19-2024 14:05-0500 Heart rate 90 /min Tremayne Kip DO Work Phone: [facility] 09-19-2024 14:05-0500 Respiratory rate 17 /min Tremayne Kip DO Work Phone: [facility] 09-19-2024 14:05-0500 SaO2% (BldA) [Mass fraction] 94 % Tremayne Kip DO Work Phone: [facility] 09-19-2024 14:05-0500 Systolic blood pressure 162 mm[Hg] Tremayne Kip DO Work Phone: [facility] 09-06-2024 10:29-0500 Diastolic blood pressure 63 mm[Hg] Tana Yan MANAGER CLINICAL INFORMATICS-[employer]ORM CHASER Work Phone: [facility] 09-06-2024 10:29-0500 Heart rate 83 /min Tana Yan MANAGER CL[employer]ICAL INFORMATICS-[employer] CHASER Work Phone: [facility] 09-06-2024 10:29-0500 Systolic blood pressure 141 mm[Hg] Tana Yan APRN-STORM CHASER Work Phone: [facility] 09-01-2024 11:39-0500 SaO2% (BldA) [Mass fraction] 99 % Marc Asher DO Work Phone: [facility] 09-01-2024 07:00-0500 Body temperature 98.4 [degF] Marc Hansonersen DO Work Phone: [facility] 09-01-2024 07:00-0500 Diastolic blood pressure 72 mm[Hg] Marc Asher DO Work Phone: [facility] 09-01-2024 07:00-0500 Heart rate 98 /min Marc Asher DO Work Phone: [facility] 09-01-2024 07:00-0500 Respiratory rate 18 /min Marc Asher DO Work Phone: [facility] 09-01-2024 07:00-0500 Systolic blood pressure 180 mm[Hg] Marc Asher DO Work Phone: [facility] 08-30-2024 12:00-0500 Body mass index (BMI) [Ratio] 20.94 kg/m2 Marc Asher DO Work Phone: [facility] 08-30-2024 12:00-0500 Body weight 50.3 kg Marc Asher DO Work Phone: [facility] 07-25-2024 10:07-0500 Body height 155 cm Shanda Oberhauser DO Work Phone: [facility] 07-25-2024 10:07-0500 Body mass index (BMI) [Ratio] 20.96 kg/m2 Shanda Oberhauser DO Work Phone: [facility] 07-25-2024 10:07-0500 Body weight 50.35 kg Shanda Oberhauser DO Work Phone: [facility] 07-25-2024 10:07-0500 Diastolic blood pressure 78 mm[Hg] Shanda Oberhauser DO Work Phone: [facility] 07-25-2024 10:07-0500 Heart rate 90 /min Shanda Oberhauser DO Work Phone: [facility] 07-25-2024 10:07-0500 Systolic blood pressure 130 mm[Hg] Shanda Oberhauser DO Work Phone: [facility] 07-13-2024 10:04-0500 Body temperature 98.2 [degF] Soto Tony Jr., DPM Work Phone: [facility] 07-13-2024 10:04-0500 Diastolic blood pressure 84 mm[Hg] Soto Cecily Jr., DPM Work Phone: [facility] 07-13-2024 10:04-0500 Heart rate 80 /min Soto Tony Jr., DPM Work Phone: [facility] 07-13-2024 10:04-0500 Systolic blood pressure 142 mm[Hg] Soto Cecily Jr., DPM Work Phone: [facility] 06-27-2024 09:59-0500 Body height 155 cm Shanda Oberhauser DO Work Phone: [facility] 06-27-2024 09:59-0500 Body mass index (BMI) [Ratio] 20.96 kg/m2 Shanda Oberhauser DO Work Phone: [facility] 06-27-2024 09:59-0500 Body weight 50.35 kg Shanda Oberhauser DO Work Phone: [facility] 06-27-2024 09:59-0500 Diastolic blood pressure 74 mm[Hg] Shanda Oberhauser DO Work Phone: [facility] 06-27-2024 09:59-0500 Heart rate 88 /min Shanda Oberhauser DO Work Phone: [facility] 06-27-2024 09:59-0500 Systolic blood pressure 130 mm[Hg] Shanda Huizar DO Work Phone: [facility] 04-25-2024 16:00-0400 Diastolic blood pressure 76 mm[Hg] Lazaro Handy MD Work Phone: [facility] 04-25-2024 16:00-0400 SaO2% (BldA) [Mass fraction] 99 % Lazaro Handy MD Work Phone: [facility] 04-25-2024 16:00-0400 Systolic blood pressure 98 mm[Hg] Lazaro Handy MD Work Phone: [facility] 04-25-2024 15:00-0400 Body temperature 97.2 [degF] Lazaro Handy MD Work Phone: [facility] 04-25-2024 15:00-0400 Heart rate 86 /min Lazaro Handy MD Work Phone: [facility] 04-25-2024 15:00-0400 Respiratory rate 16 /min Lazaro Handy MD Work Phone: [facility] 04-22-2024 20:00-0400 Body mass index (BMI) [Ratio] 21.02 kg/m2 Lazaro Handy MD Work Phone: [facility] 04-22-2024 20:00-0400 Body weight 50.5 kg Lazaro Handy MD Work Phone: [facility] 04-18-2024 13:48-0400 Body height 155 cm Lazaro Handy MD Work Phone: [facility] 03-28-2024 10:07-0400 Body mass index (BMI) [Ratio] 20.31 kg/m2 Kaykay Bess CNP Work Phone: [facility] 03-28-2024 10:07-0400 Body weight 48.76 kg Kaykay Bess STORM CHASER Work Phone: [facility] 03-28-2024 10:07-0400 Diastolic blood pressure 67 mm[Hg] Kaykay Bess STORM CHASER Work Phone: [facility] 03-28-2024 10:07-0400 Heart rate 78 /min Kaykay Bess STORM CHASER Work Phone: [facility] 03-28-2024 10:07-0400 Systolic blood pressure 133 mm[Hg] Kaykay Bess STORM CHASER Work Phone: [facility] 03-24-2024 09:13-0400 Diastolic blood pressure 68 mm[Hg] Tana Beltránman MANAGER CLINICAL INFORMATICS-[employer] CHASER Work Phone: [facility] 03-24-2024 09:13-0400 Heart rate 97 /min Tana Beltránman MANAGER CLINICAL INFORMATICS-[employer] CHASER Work Phone: [facility] 03-24-2024 09:13-0400 Systolic blood pressure 110 mm[Hg] Tana Beltránman MANAGER CLINICAL INFORMATICS-[employer]ORM CHASER Work Phone: [facility] 03-18-2024 11:02-0400 Diastolic blood pressure 56 mm[Hg] Soto Tony Jr., DPM Work Phone: [facility] 03-18-2024 11:02-0400 Heart rate 102 /min Soto Tony Jr., DPM Work Phone: [facility] 03-18-2024 11:02-0400 SaO2% (BldA) [Mass fraction] 92 % Soto Tony Jr., DPM Work Phone: [facility] 03-18-2024 11:02-0400 Systolic blood pressure 96 mm[Hg] Soto Tony Jr., DPM Work Phone: [facility] 03-18-2024 10:49-0400 Body temperature 97 [degF] Soto Tony Jr., DPM Work Phone: [facility] 01-26-2024 10:07-0400 Diastolic blood pressure 52 mm[Hg] Tana Yan MANAGER CLINICAL INFORMATICS-[employer] CHASER Work Phone: [facility] 01-26-2024 10:07-0400 Heart rate 95 /min Tana Yan MANAGER CLINICAL INFORMATICS-[employer]ORM CHASER Work Phone: [facility] 01-26-2024 10:07-0400 Systolic blood pressure 88 mm[Hg] Tana Yan MANAGER CLINICAL INFORMATICS-[employer]ORM CHASER Work Phone: [facility] 12-18-2023 10:12-0400 Body temperature 98.2 [degF] Soto Cecily Jr., DPM Work Phone: [facility] 12-18-2023 10:12-0400 Diastolic blood pressure 66 mm[Hg] Soto Cecily Jr., DPM Work Phone: [facility] 12-18-2023 10:12-0400 Heart rate 92 /min Soto Cecily Jr., DPM Work Phone: [facility] 12-18-2023 10:12-0400 Systolic blood pressure 120 mm[Hg] Soto Cecily Jr., DPM Work Phone: [facility] 12-09-2023 14:01-0400 Body height 139.7 cm Shanda Oberhauser DO Work Phone: [facility] 12-09-2023 14:01-0400 Body mass index (BMI) [Ratio] 25.45 kg/m2 Shanda Oberhauser DO Work Phone: [facility] 12-09-2023 14:01-0400 Body weight 49.67 kg Shanda Oberhauser DO Work Phone: [facility] 12-09-2023 14:01-0400 Diastolic blood pressure 74 mm[Hg] Shanda Oberhauser DO Work Phone: [facility] 12-09-2023 14:01-0400 Heart rate 88 /min Shanda Oberhauser DO Work Phone: [facility] 12-09-2023 14:01-0400 Systolic blood pressure 130 mm[Hg] Shanda Huizar DO Work Phone: [facility] 10-05-2023 12:30-0500 Diastolic blood pressure 72 mm[Hg] [address] 10-05-2023 12:30-0500 Heart rate 85 /min [address] 10-05-2023 12:30-0500 Respiratory rate 18 /min [address] 10-05-2023 12:30-0500 SaO2% (BldA) [Mass fraction] 98 % [address] 10-05-2023 12:30-0500 Systolic blood pressure 128 mm[Hg] [address] 10-05-2023 12:03-0500 Body temperature 97.2 [degF] [address] 10-05-2023 07:30-0500 Body height 139.[address] 10-05-2023 07:30-0500 Body mass index (BMI) [Ratio] 27.77 kg/m2 [address] 10-05-2023 07:30-0500 Body weight 54.[address] 09-16-2023 09:55-0500 Body temperature 97 [degF] Soto Tony Jr., DPM Work Phone: [facility] 09-16-2023 09:55-0500 Diastolic blood pressure 77 mm[Hg] Soto Tony Jr., DPM Work Phone: [facility] Comment on above: unable to get BP due to moovement 09-16-2023 09:55-0500 Heart rate 76 /min Soto Tony Jr., DPM Work Phone: [facility] 09-16-2023 09:55-0500 Systolic blood pressure 160 mm[Hg] Soto Tony Jr., DPM Work Phone: [facility] Comment on above: unable to get BP due to moovement 07-16-2023 10:02-0500 Diastolic blood pressure 72 mm[Hg] Shanda Oberhauser DO Work Phone: [facility] 07-16-2023 10:02-0500 Heart rate 80 /min Shanda Oberhauser DO Work Phone: [facility] 07-16-2023 10:02-0500 Systolic blood pressure 133 mm[Hg] Shanda Oberhauser DO Work Phone: [facility] 06-12-2023 10:06-0400 Body temperature 98.29 [degF] Soto Tony Jr., DPM Work Phone: [facility] 06-12-2023 10:06-0400 Diastolic blood pressure 81 mm[Hg] Soto Cecily Jr., DPM Work Phone: [facility] Comment on above: patient moovement uncontrolled 06-12-2023 10:06-0400 Heart rate 101 /min Soto Tony Jr., DPM Work Phone: [facility] 06-12-2023 10:06-0400 Systolic blood pressure 163 mm[Hg] Soto Cecily Jr., DPM Work Phone: [facility] Comment on above: patient moovement uncontrolled 03-23-2023 10:05-0400 Diastolic blood pressure 78 mm[Hg] Kaykay Bess STORM CHASER Work Phone: [facility] 03-23-2023 10:05-0400 Heart rate 90 /min Kaykay Bess STORM CHASER Work Phone: [facility] 03-23-2023 10:05-0400 Systolic blood pressure 148 mm[Hg] Kaykay Bess STORM CHASER Work Phone: [facility] 03-11-2023 10:00-0400 Diastolic blood pressure 77 mm[Hg] Soto Cecily Jr., DPM Work Phone: [facility] 03-11-2023 10:00-0400 Heart rate 97 /min Soto Tony Jr., DPM Work Phone: [facility] 03-11-2023 10:00-0400 Systolic blood pressure 138 mm[Hg] Soto Tony Jr., DPM Work Phone: [facility] 03-11-2023 09:53-0400 Body temperature 98.71 [degF] Sotoroberto Tony Jr., DPM Work Phone: [facility] 11-26-2022 10:07-0400 Body height 157.[address] Goldie Mobley Work Phone: [facility] 11-26-2022 10:07-0400 Body mass index (BMI) [Ratio] 24.3 kg/m2 Dr. Goldie Mobley Work Phone: [facility] [facility]22 10:07-0400 Body temperature 98.2 [degF] Dr. Goldie Mobley Work Phone: [facility] 11-26-2022 10:07-0400 Body weight 60.[address] Goldie Mobley Work Phone: [facility] 11-26-2022 10:07-0400 Diastolic blood pressure 78 mm[Hg] Dr. Goldie Mobley Work Phone: [facility] 11-26-2022 10:07-0400 Heart rate 54 /min Dr. Goldie Mobley Work Phone: [facility] 11-26-2022 10:07-0400 Respiratory rate 16 /min Dr. Goldie Mobley Work Phone: [facility] 11-26-2022 10:07-0400 SaO2% (BldA) [Mass fraction] 92 % Dr. Goldie Mobley Work Phone: [facility] 11-26-2022 10:07-0400 Systolic blood pressure 148 mm[Hg] Dr. Goldie Mobley Work Phone: [facility] 11-24-2022 09:56-0400 Body mass index (BMI) [Ratio] 24.3 kg/m2 Dr. Goldie Mobley Work Phone: [facility] 11-24-2022 09:56-0400 Body temperature 97.8 [degF] Dr. Goldie Mobley Work Phone: [facility] 11-24-2022 09:56-0400 Body weight 60.[address] Goldie Mobley Work Phone: [facility] 11-24-2022 09:56-0400 Diastolic blood pressure 60 mm[Hg] Dr. Goldie Mobley Work Phone: [facility] 11-24-2022 09:56-0400 Heart rate 91 /min Dr. Goldie Mobley Work Phone: [facility] 11-24-2022 09:56-0400 Respiratory rate 16 /min Dr. Goldie Mobley Work Phone: [facility] 11-24-2022 09:56-0400 SaO2% (BldA) [Mass fraction] 94 % Dr. Goldie Mobley Work Phone: [facility] 11-24-2022 09:56-0400 Systolic blood pressure 140 mm[Hg] Dr. Goldie Mobley Work Phone: [facility] 08-15-2022 10:21-0500 Body height 157.[address] Goldie Mobley Work Phone: [facility] 08-15-2022 10:21-0500 Body temperature 97.6 [degF] Dr. Goldie Mobley Work Phone: [facility] 08-15-2022 10:21-0500 Diastolic blood pressure 70 mm[Hg] Dr. Goldie Mobley Work Phone: [facility] 08-15-2022 10:21-0500 Heart rate 96 /min Dr. Goldie Mobley Work Phone: [facility] 08-15-2022 10:21-0500 Respiratory rate 16 /min Dr. Goldie Mobley Work Phone: [facility] 08-15-2022 10:21-0500 SaO2% (BldA) [Mass fraction] 92 % Dr. Goldie Mobley Work Phone: [facility] 08-15-2022 10:21-0500 Systolic blood pressure 130 mm[Hg] Dr. Goldie Mobley Work Phone: [facility] 08-11-2022 09:51-0500 Body temperature 97.7 [degF] Text Entry Free [facility] [place] 08-11-2022 09:51-0500 Diastolic blood pressure 81 mm[Hg] Text Entry Free [facility] [place] 08-11-2022 09:51-0500 Heart rate 86 /min Text Entry Free [facility] [place] 08-11-2022 09:51-0500 Respiratory rate 19 /min Text Entry Free [facility] [place] 08-11-2022 09:51-0500 SaO2% (BldA) [Mass fraction] 94 % Text Entry Free [facility] [place] 08-11-2022 09:51-0500 Systolic blood pressure 135 mm[Hg] Text Entry Free [facility] [place] 05-20-2022 10:43-0400 Body height 157.[address] Goldie Mobley Work Phone: [facility] Work Phone: 05-20-2022 10:43-0400 Body temperature 97 [degF] Dr. Goldie Mobley Work Phone: [facility] 05-20-2022 10:43-0400 Diastolic blood pressure 74 mm[Hg] Dr. Goldie Mobley Work Phone: [facility] 05-20-2022 10:43-0400 Heart rate 90 /min Dr. Goldie Mobley Work Phone: [facility] 05-20-2022 10:43-0400 Respiratory rate 14 /min Dr. Goldie Mobley Work Phone: [facility] 05-20-2022 10:43-0400 SaO2% (BldA) [Mass fraction] 95 % Dr. Goldie Mobley Work Phone: [facility] 05-20-2022 10:43-0400 Systolic blood pressure 110 mm[Hg] Dr. Goldie Mobley Work Phone: [facility] 03-12-2022 11:05-0400 Diastolic blood pressure 92 mm[Hg] Soto Tony Jr., DPM Work Phone: [facility] 03-12-2022 11:05-0400 Heart rate 102 /min Soto Tony Jr., DPM Work Phone: [facility] 03-12-2022 11:05-0400 Systolic blood pressure 150 mm[Hg] Soto Tony Jr., DPM Work Phone: [facility] 03-12-2022 10:56-0400 Body temperature 98.4 [degF] Soto Tony Jr., DPM Work Phone: [facility] 03-10-2022 09:06-0400 Body height 157.5 cm Kaykay Bess STORM CHASER Work Phone: [facility] 03-10-2022 09:06-0400 Body mass index (BMI) [Ratio] 24.87 kg/m2 Kaykay Bess STORM CHASER Work Phone: [facility] 03-10-2022 09:06-0400 Body weight 61.69 kg Kaykay Bess STORM CHASER Work Phone: [facility] 03-10-2022 09:06-0400 Diastolic blood pressure 78 mm[Hg] Kaykay Bess STORM CHASER Work Phone: [facility] 03-10-2022 09:06-0400 Heart rate 111 /min Kaykay Bess STORM CHASER Work Phone: [facility] 03-10-2022 09:06-0400 Systolic blood pressure 133 mm[Hg] Kaykay Bess STORM CHASER Work Phone: [facility] 02-25-2022 10:07-0400 Body height 157.[address] Goldie Mobley Work Phone: [facility] Work Phone: 01-07-2022 09:45-0400 Body temperature 97.5 [degF] Dr. Goldie Mobley Work Phone: [facility] Work Phone: 01-07-2022 09:45-0400 Diastolic blood pressure 68 mm[Hg] Dr. Goldie Mobley Work Phone: [facility] Work Phone: 01-07-2022 09:45-0400 Heart rate 98 /min Dr. Goldie Mobley Work Phone: [facility] Work Phone: 01-07-2022 09:45-0400 Respiratory rate 14 /min Dr. Goldie Mobley Work Phone: [facility] Work Phone: 01-07-2022 09:45-0400 SaO2% (BldA) [Mass fraction] 96 % Dr. Goldie Mobley Work Phone: [facility] Work Phone: 01-07-2022 09:45-0400 Systolic blood pressure 102 mm[Hg] Dr. Goldie Mobley Work Phone: [facility] Work Phone: 01-07-2022 09:45-0400 Body temperature 97.5 [degF] Dr. Goldie Mobley Work Phone: [facility] Work Phone: 01-07-2022 09:45-0400 Diastolic blood pressure 68 mm[Hg] Dr. Goldie Mobley Work Phone: [facility] Work Phone: 01-07-2022 09:45-0400 Heart rate 98 /min Dr. Goldie Mobley Work Phone: [facility] Work Phone: 01-07-2022 09:45-0400 Respiratory rate 14 /min Dr. Goldie Mobley Work Phone: [facility] Work Phone: 01-07-2022 09:45-0400 SaO2% (BldA) [Mass fraction] 96 % Dr. Goldie Mobley Work Phone: [facility] Work Phone: 01-07-2022 09:45-0400 Systolic blood pressure 102 mm[Hg] Dr. Goldie Mobley Work Phone: [facility] Work Phone: 03-11-2021 10:01-0400 Diastolic blood pressure 87 mm[Hg] Kaykay Bess STORM CHASER Work Phone: [facility] 03-11-2021 10:01-0400 Heart rate 88 /min Kaykay Bess STORM CHASER Work Phone: [facility] 03-11-2021 10:01-0400 Systolic blood pressure 133 mm[Hg] Kaykay Bess STORM CH[employer]ER Work Phone: [facility] 02-27-2020 10:10-0400 BP Diastolic 73 mm[Hg] Kaykay Bess [facility] 02-27-2020 10:10-0400 BP Systolic 144 mm[Hg] Kaykay Bess [facility] 02-27-2020 10:10-0400 Height 157.5 cm Kaykay Bess [facility] 02-27-2020 10:10-0400 Pulse (Heart Rate) 85 /min Kaykay Bess [facility] 08-22-2019 15:07-0500 BP Diastolic 83 mm[Hg] Kaykay Bess [facility] 08-22-2019 15:07-0500 BP Systolic 147 mm[Hg] Kaykay Bess [facility] 08-22-2019 15:07-0500 Height 157.5 cm Kaykay Bess [facility] 08-22-2019 15:07-0500 Pulse (Heart Rate) 84 /min Kaykay Bess [facility] 08-22-2019 15:07-0500 Pulse Oximetry 97 % Kaykay Bess [facility] 11-24-2018 11:05-0400 BMI (Body Mass Index) 23.05 kg/m2 Lindsay Echols [facility] 11-24-2018 11:05-0400 BP Diastolic 73 mm[Hg] Lindsay RodarteKee [facility] 11-24-2018 11:05-0400 BP Systolic 109 mm[Hg] Lindsay RodarteKee [facility] 11-24-2018 11:05-0400 Height 157.5 cm Lindsay RodarteKee [facility] 11-24-2018 11:05-0400 Pulse (Heart Rate) 89 /min Lindsay RodarteKee [facility] 11-24-2018 11:05-0400 Weight 57.15 kg Lindsay RodarteKee [facility] 10-22-2017 14:20-0400 BMI (Body Mass Index) 22.86 kg/m2 Izzy Storm [facility] 10-22-2017 14:20-0400 BP Diastolic 58 mm[Hg] Izzy Storm [facility] 10-22-2017 14:20-0400 BP Systolic 108 mm[Hg] Izzy Storm [facility] 10-22-2017 14:20-0400 Height 157.5 cm Izzy Storm [facility] 10-22-2017 14:20-0400 Pulse (Heart Rate) 76 /min Izzy Storm [facility] 10-22-2017 14:20-0400 Weight 56.7 kg Izzy Storm [facility] 04-20-2017 14:27-0400 BMI (Body Mass Index) 23.69 kg/m2 Kaykay Bess [facility] Work Phone: 04-20-2017 14:27-0400 BP Diastolic 64 mm[Hg] Kaykay Bess [facility] Work Phone: 04-20-2017 14:27-0400 BP Systolic 110 mm[Hg] Kaykay Bess [facility] Work Phone: 04-20-2017 14:270400 Height 157.5 cm Kaykay Bess [facility] Work Phone: 04-20-2017 14:27-0400 Pulse (Heart Rate) 64 /min Kaykay Bess [facility] Work Phone: 04-20-2017 14:27-0400 Weight 58.74 kg Kaykay Bess [facility] Work Phone: Encounters Encounter Date Encounter Type Care Provider Facility Start: 03-18-2025 End: 03-18-2025 Emergency department patient visit Dr. Goldie Mobley MD Work Phone: -Emergency Department Work Phone: Start: 02-15-2025 ambulatory TREMAYNE ANDRADE [facility] Amb[facility] Start: 02-07-2025 End: 02-07-2025 Refill Tremayne Andrade DO Work Phone: [facility] Start: 01-31-2025 End: 01-31-[address] Cedrick Alejo MD -[facility] Work Phone: Start: 01-31-2025 End: 01-31-[address] Goldie Mobley MD Work Phone: [facility] Work Phone: Start: 01-18-2025 End: 01-18-2025 ambulatory SOTO TONY JR. [facility] Start: 01-18-2025 End: 01-18-2025 Patient encounter procedure Soto Tony DPM Work Phone: [facility] Comment on above: Onychodystrophy (Marely lakesha Dx) Start: 12-27-2024 End: 12-27-2024 Office outpatient visit 25 minutes Tremayne Andrade DO Work Phone: [facility] Comment on above: Primary hypertension Start: 12-27-2024 End: 12-27-2024 ambulatory TREMAYNE ANDRADE [facility] Start: 12-26-2024 End: 12-26-2024 Subsequent hospital visit by physician Clara Jones DO Work Phone: [facility] [place] Comment on above: S/P percutaneous end oscopic gastrostomy (PEG) tube placement (Multi); Seizures (Multi) Start: 12-26-2024 End: 12-26-2024 ambulatory [facility] Start: 12-13-2024 End: 12-13-2024 Chart abstracting Tremayne Andrade DO Work Phone: [facility] Start: 12-11-2024 End: 02-10-2025 Follow-up encounter Tremayne Andrade DO Work Phone: [facility] Comment on above: MTB SCREEN Start: 11-28-2024 End: 11-28-2024 Office outpatient visit 25 minutes Clara Jones DO Work Phone: [facility] Comment on above: PEG tube malfunction (Multi) (Primary Dx); S/P percutaneous endoscopic gastrostomy (PEG) tube placement (Multi); Seizures (Multi) Start: 11-28-2024 End: 11-28-2024 ambulatory [facility] Ambulatory Start: 11-24-2024 End: 11-24-2024 Orders Only Tremayne Andrade DO Work Phone: [facility] Comment on above: At risk for tubercul osis (Primary Dx) Start: 11-23-2024 ambulatory BONI SALTER II Fa cility:[facility] Start: 11-23-2024 End: 11-23-2024 Patient encounter procedure Boni Salter OD Work Phone: Optometry Comment on above: Type 2 diabetes lalo itus without retinopathy (HCC) (Primary Dx); Combined forms of age-related cataract of both eyes; Exotropia of right eye; Myopia of both eyes; Presbyopia Start: 11-16-2024 End: 11-16-2024 Office outpatient visit 25 minutes Tremayne Andrade DO Work Phone: [facility] Comment on above: Primary hypertension (Primary Dx) Start: 11-16-2024 End: 11-17-2024 Refill Tremayne Andrade DO Work Phone: [facility] Comment on above: Primary hypertension Start: 11-03-2024 End: 11-07-2024 ambulatory TREMAYNE ANDRADE [facility] Start: 11-03-2024 End: 11-03-2024 Nutrition therapy Tremayne Andrade DO Work Phone: [facility] Comment on above: Hyponatremia [E87.1] (Primary Dx); Type 2 diabetes mellitus without complication, unspecified whether exterminator insulin use (HCC) [E11.9]; Long-term insulin use (HCC) [Z79.4] Start: 10-20-2024 End: 10-20-2024 Orders Only Tremayne Andrade DO Work Phone: [facility] Comment on above: Nonintractable epile psy without status epilepticus, unspecified epilepsy type (HCC) (Primary Dx); Primary hypertension Start: 10-19-2024 End: 10-19-2024 ambulatory SOTO TONY JR. [facility] Start: 10-19-2024 End: 10-19-2024 Patient encounter procedure Soto Tony DPM Work Phone: [facility] Comment on above: Onychodystrophy (Marely lakesha Dx); Peripheral vascular disease, unspecified Start: 10-17-2024 End: 10-17-2024 Office outpatient visit 25 minutes Tremayne Andrade DO Work Phone: [facility] Comment on above: Hyponatremia (Primar y Dx); Primary hypertension Start: 10-17-2024 End: 10-17-2024 ambulatory TREMAYNE ANDRADE [facility] Start: 10-07-2024 End: 10-07-2024 Nutrition therapy Tremayne Andrade DO Work Phone: [facility] Comment on above: Hyponatremia; Type 2 diabetes mellitus without complication, with long-term current use of insulin (HCC) Start: 10-07-2024 End: 10-11-2024 ambulatory TREMAYNE ANDRADE [facility] Start: 10-06-2024 ambulatory TREMAYNE ANDRADE [facility] Ambulatory Start: 10-05-2024 ambulatory TREMAYNE ANDRADE [facility] Amb[facility] Start: 09-19-2024 End: 09-19-2024 ambulatory TREMAYNE ANDRADE [facility] Start: 09-19-2024 End: 09-19-2024 Office outpatient new 60 minutes Tremayne Andrade DO Work Phone: [facility] Comment on above: Status post insertio n of percutaneous endoscopic gastrostomy (PEG) tube ([facility]) (Primary Dx); On tube feeding diet; Hyponatremia; Primary hypertension; Type 2 diabetes mellitus without complication, with long-term current use of insulin ([facility]); Mental disability; Seizures ([facility]); Hypothyroidism, unspecified type Start: 09-06-2024 End: 09-06-2024 Transitional care manage srvc 7 day discharge [facility] MANAGER CLINICAL INFORMATICS-STORM CHASER Work Phone: [facility] Comment on above: Primary hypertension (Primary Dx); HSV infection Start: 09-06-2024 End: 09-06-2024 ambulatory [facility] Start: 08-30-2024 End: 09-01-2024 Evaluation and management of inpatient Marc Asher DO Work Phone: [facility] [place] 3 Comment on above: Angioedema of tongue (Primary Dx); Hyponatremia Start: 08-26-2024 End: 08-26-2024 ambulatory SHANDA HUIZAR [facility] Start: 08-23-2024 End: 08-23-2024 Office outpatient visit 15 minutes Shanda Huizar DO Work Phone: [facility] Comment on above: Hyponatremia (Primar y Dx); Primary hypertension; Mixed hyperlipidemia; Acquired hypothyroidism; Controlled type 2 diabetes mellitus without complication, without long-term current use of insulin (Multi); Spastic quadriplegic cerebral palsy (Multi); Seizures (Multi); Intellectual functioning disability; Developmental delay; Altered mental status, unspecified altered mental status type Start: 08-23-2024 End: 08-23-2024 ambulatory [facility] Start: 07-25-2024 End: 07-25-2024 ambulatory [facility] Start: 07-25-2024 End: 07-25-2024 Office outpatient visit 25 minutes Shanda Huizar DO Work Phone: [facility] Comment on above: Low sodium levels (P rimary Dx); Mathew infection; Mixed hyperlipidemia; Primary hypertension; Controlled type 2 diabetes mellitus without complication, with long-term current use of insulin (Multi); Acquired hypothyroidism; Intellectual functioning disability; Spastic quadriplegic cerebral palsy (Multi) Start: 07-13-2024 End: 07-13-2024 ambulatory SOTO TONY JR. [facility] Start: 07-13-2024 End: 07-13-2024 Patient encounter procedure Soto Tony DPM Work Phone: [facility] Comment on above: Onychodystrophy (Marely lakesha Dx); Peripheral vascular disease, unspecified (HCC) Start: 06-27-2024 End: 06-27-2024 ambulatory [facility] Start: 06-27-2024 End: 06-27-2024 Office outpatient visit 25 minutes Shanda Huziar DO Work Phone: [facility] Comment on above: Hypercalcemia (Prima ry Dx); Diabetic autonomic neuropathy associated with type 2 diabetes mellitus (Multi); Spastic quadriplegic cerebral palsy (Multi); Acute respiratory failure with hypercapnia (Multi); Chronic viral hepatitis B without 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 (Multi); Mixed hyperlipidemia; Primary hypertension; Controlled type 2 diabetes mellitus without complication, with long-term current use of insulin (Multi); Acquired hypothyroidism; Seizures (Multi) Start: 06-27-2024 End: 06-27-2024 ambulatory [facility] Start: 06-03-2024 End: 06-06-2024 Patient encounter procedure Itri A Navdeep Work Phone: [facility] Start: 06-03-2024 End: 06-06-2024 Progress Note Itrchel Bruno Navdeep Work Phone: [facility] Start: 05-04-2024 End: 05-10-2024 Patient encounter procedure Itri Kiana Navdeep Work Phone: [facility] Start: 05-04-2024 End: 05-10-2024 Progress Note Itri Kiana Navdeep Work Phone: [facility] Start: 04-26-2024 End: 04-28-2024 Patient encounter procedure Itri Kiana Navdeep Work Phone: [facility] Start: 04-26-2024 End: 04-28-2024 Progress Note Itri Kiana Navdeep Work Phone: [facility] Start: 04-18-2024 Critical care ill/in jured patient init 30-74 min Lazaro Handy MD Work Phone: [facility] Work Phone: Start: 04-18-2024 End: 04-25-2024 Evaluation and management of inpatient Lazaro Handy MD Work Phone: [facility] [place] [facility] Comment on above: Altered mental statu s, unspecified altered mental status type (Primary Dx); Severe dehydration; Hypercalcemia; Lactic acidosis; Hypernatremia; Intellectual functioning disability; Abnormal intentional weight loss Start: 03-28-2024 End: 03-28-2024 ambulatory KAYKAY BESS [facility] Amb[facility] Start: 03-28-2024 End: 03-28-2024 Office outpatient visit 25 minutes Kaykay Bess [facility] Work Phone: [facility] [place] Comment on above: Type 2 diabetes lalo itus without complication, with long-term current use of insulin (HCC) (Primary Dx); Hypothyroidism, unspecified type Start: 03-24-2024 End: 03-24-2024 ambulatory [facility] Start: 03-24-2024 End: 03-24-2024 Office outpatient visit 25 minutes Tana Colin Yan MANAGER CLINICAL INFORMATICS-STORM CHASER Work Phone: [facility] Comment on above: Primary hypertension (Primary Dx); Other fatigue Start: 03-21-2024 End: 03-21-2024 ambulatory SHANDA Mckeon [facility] Start: 03-18-2024 End: 03-18-2024 Emergency department patient visit GOLDIE BAXTER [facility] Start: 03-18-2024 End: 03-18-2024 Office outpatient visit 15 minutes Soto Tony DPM Work Phone: [facility] Comment on above: Hypotension, unspeci fied hypotension type (Primary Dx) Start: 03-18-2024 End: 03-18-2024 ambulatory SOTO TONY JR. [facility] Start: 03-16-2024 End: 03-16-2024 ambulatory Nayeli Richards METER INSPECTOR Facility:[facility] Start: 03-03-2024 End: 03-03-2024 ambulatory [facility] Start: 02-22-2024 End: 02-22-2024 ambulatory Cedrickmelchor Michael Facility:[facility] Start: 01-26-2024 End: 01-26-2024 Office outpatient visit 25 minutes Tana Yan MANAGER CLINICAL INFORMATICS-STORM CHASER Work Phone: [facility] Comment on above: Thrush (Primary Dx) Start: 01-26-2024 End: 01-26-2024 ambulatory [facility] Start: 12-29-2023 End: 12-29-2023 ambulatory SHANDA [facility] Start: 12-18-2023 End: 12-18-2023 Patient encounter procedure Soto Tony DPM Work Phone: [facility] Comment on above: Onychodystrophy (Marely lakesha Dx); Peripheral vascular disease, unspecified (HCC) Start: 12-09-2023 End: 12-09-2023 Office outpatient visit 15 minutes Shanda Acuñaarsh DO Work Phone: [facility] Comment on above: Diabetic autonomic n europathy associated with type 2 diabetes mellitus (Multi) (Primary Dx); Controlled type 2 diabetes mellitus without complication, with long-term current use of insulin (Multi); Abnormal intentional weight loss Start: 11-18-2023 End: 11-18-2023 Patient encounter procedure Boni Salter OD Work Phone: Optometry Comment on above: Type 2 diabetes lalo itus without retinopathy (HCC) (Primary Dx); Combined forms of age-related cataract of both eyes; Exotropia of right eye; Myopia of both eyes; Presbyopia Start: 10-14-2023 End: 10-14-2023 ambulatory SHANDA HUIZAR [facility] Start: 10-05-2023 End: 10-05-2023 Subsequent hospital visit by physician Clara Jones DO Work Phone: [facility] [place] Comment on above: Positive colorectal cancer screening using Cologuard test Start: 09-16-2023 End: 09-16-2023 Patient encounter procedure Soto Tony DPM Work Phone: [facility] Comment on above: Peripheral vascular disease, unspecified (HCC) (Primary Dx); Onychodystrophy Start: 07-16-2023 End: 07-16-2023 Office outpatient new 45 minutes Shanda Mike Domenicodeannaenma DO Work Phone: [facility] Comment on above: Hypothyroidism, unsp ecified type (Primary Dx); Diabetic autonomic neuropathy associated with type 2 diabetes mellitus (CMS/HCC); Controlled type 2 diabetes mellitus without complication, with long-term current use of insulin (CMS/HCC); Intellectual functioning disability; Primary hypertension; Mixed hyperlipidemia Start: 06-12-2023 End: 06-12-2023 Patient encounter procedure Soto Tony DPM Work Phone: [facility] Comment on above: Onychodystrophy (Marely lakesha Dx); Peripheral vascular disease, unspecified (HCC) Start: 03-23-2023 End: 03-23-2023 Office outpatient visit 25 minutes Kaykay Bess STORM CHASER Work Phone: [facility] [place] Comment on above: Diabetic autonomic n europathy associated with type 2 diabetes mellitus (HCC) (Primary Dx); Hypothyroidism, unspecified type Start: 03-11-2023 End: 03-11-2023 Patient encounter procedure Soto CISNEROSM Work Phone: [facility] Comment on above: Onychodystrophy (Marely lakesha Dx); Peripheral vascular disease, unspecified (HCC) Start: 02-27-2023 End: 02-27-[address] Goldie Mobley Work Phone: [facility] Work Phone: Start: 02-27-2023 End: 02-27-[address] Goldie Mobley Work Phone: [facility]-Outpatient Breast Imaging Work Phone: Start: 02-10-2023 End: 02-10-2023 Emergency department patient visit Provider Pending Facility:[id number] Start: 12-29-2022 End: 12-29-[address] Goldie Mobley Work Phone: [facility] Work Phone: Start: 12-29-2022 End: 12-29-[address] Goldie Mobley Work Phone: [facility]-Pulmonary Services/Neurology Start: 11-26-2022 End: 11-26-[address] Goldie Mobley Work Phone: [facility] Work Phone: Start: 11-26-2022 End: 11-26-[address] Goldie Mobley Work Phone: [facility] Start: 11-24-2022 End: 11-24-[address] Goldie Mobley Work Phone: [facility] Start: 11-13-2022 End: 11-13-2022 Patient encounter procedure Boni Membrenoenma OD Work Phone: Optometry Comment on above: Type 2 diabetes lalo itus without retinopathy (HCC) (Primary Dx); Combined forms of age-related cataract of both eyes; Exotropia of right eye; Myopia of both eyes; Presbyopia Start: 08-15-2022 End: 08-15-[address] Goldie Mobley Work Phone: [facility] Work Phone: Start: 08-15-2022 End: 08-15-[address] Goldie Mobley Work Phone: [facility]-Laboratory, Specimen Start: 08-15-2022 End: 08-15-[address] Goldie Mobley Work Phone: [facility] Start: 08-08-2022 End: 08-09-2022 Emergency department patient visit Dr. Jeffrey Delgadillo Facility:[id number] Start: 08-08-2022 End: 08-11-2022 Evaluation and management of inpatient Félix [facility] 3 Med [facility]urg [facility] 317 01 Start: 05-22-2022 End: 05-22-[address] Goldie Mobley Work Phone: [facility] Work Phone: Start: 05-22-2022 End: 05-22-[address] Goldie Mobley Work Phone: [facility]-Laboratory, BIM Start: 05-20-2022 End: 05-20-[address] Goldie Mobley Work Phone: [facility] Work Phone: Start: 05-20-2022 End: 05-20-[address] Goldie Mobley Work Phone: [facility]-Laboratory, BIM Start: 05-20-2022 End: 05-20-[address] Goldie Mobley Work Phone: [facility] Start: 03-12-2022 End: 03-12-2022 Office outpatient new 30 minutes Soto CISNEROSM Work Phone: [facility] Comment on above: Peripheral vascular disease, unspecified (HCC) (Primary Dx); Onychodystrophy Start: 03-10-2022 End: 03-10-2022 Office outpatient visit 25 minutes Kaykay Bess STORM CHASER Work Phone: [facility] Comment on above: Diabetic autonomic n europathy associated with type 2 diabetes mellitus (HCC) (Primary Dx); Hypothyroidism, unspecified type Start: 03-03-2022 ambulatory [facility] Facility:[id number] Start: 03-03-2022 Patient encounter procedure Katy Hill OTR/L Work Phone: [facility] Work Phone: Start: 02-25-2022 End: 02-25-[address] Goldie Mobley Work Phone: [facility]-Outpatient Bone Densitometry Start: 01-07-2022 End: 01-07-[address] Goldie Mobley Work Phone: [facility]-Laboratory, BIM Start: 01-07-2022 End: 01-07-[address] Goldie Mobley Work Phone: [facility] Start: 11-07-2021 End: 11-07-2021 Patient encounter procedure Bnoi Salter OD Work Phone: Optometry Comment on above: Controlled type 2 di abetes mellitus without complication, with long-term current use of insulin (HCC) (Primary Dx); Combined forms of age-related cataract of both eyes; Exotropia of right eye; Myopia of both eyes; Presbyopia Start: 06-04-[address] Gio Mobley Work Phone: [facility] Start: 03-11-2021 End: 03-11-2021 Office outpatient visit 25 minutes Kaykay Kevin Bess CNP Work Phone: [facility] [place] Comment on above: Diabetic autonomic n europathy associated with type 2 diabetes mellitus (HCC) (Primary Dx) Start: 02-27-2020 End: 02-27-2020 Office outpatient visit 25 minutes Kaykay Mjsilvano Bess Work Phone: [facility] Comment on above: Diabetic autonomic n europathy associated with type 2 diabetes mellitus (HCC) (Primary Dx); Hypothyroidism, unspecified type Start: 08-22-2019 End: 08-22-2019 Office outpatient visit 25 minutes Kaykay Kevin Bess Work Phone: [facility] Comment on above: Diabetic autonomic n europathy associated with type 2 diabetes mellitus (HCC) (Primary Dx); Hypothyroidism, unspecified type Start: 11-24-2018 End: 11-24-2018 Office outpatient visit 15 minutes Lindsay Echols Work Phone: [facility] Comment on above: Type 2 diabetes lalo itus without complication, with long-term current use of insulin (HCC) (Primary Dx); Hypothyroidism, unspecified type Start: 09-23-2018 Patient encounter procedure Luis Daniel James Facility:[place] Start: 09-02-2018 End: 09-02-2018 Patient encounter procedure Luis Daniel James Work Phone: [facility] Start: 12-23-2017 Patient encounter procedure Luis Daniel James Facility:[place] Start: 10-22-2017 Office/outpatient vi sit, est, level 4 Izzy Storm Work Phone: [facility] Start: 10-13-2017 End: 10-13-2017 Ambulatory Luis Daniel James Work Phone: [facility] Start: 07-07-2017 End: 07-07-2017 Ambulatory Luis Daniel James Work Phone: [facility] Start: 05-27-2017 End: 05-27-2017 Ambulatory Luis Daniel James Work Phone: [facility] Start: 05-21-2017 End: 05-21-2017 Ambulatory Luis Daniel James Work Phone: [facility] Start: 04-22-2017 End: 04-22-2017 Ambulatory Luis Daniel James Work Phone: [facility] Start: 04-20-2017 Office/outpatient vi sit, est, level 3 Kaykay Bess Work Phone: [facility] Start: 04-18-2017 End: 04-18-2017 Ambulatory Luis Daniel James Work Phone: [facility] Start: 04-14-2017 End: 04-14-2017 Ambulatory Luis Daniel James Work Phone: [facility] Procedures Date Procedure Procedure Detail Performing Clinician Start: 12-26-2024 Esophagogastroduodenoscopy transoral diagnostic Clara Jones DO Work Phone: Start: 12-26-2024 Glucose quantitative blood xcpt reagent strip Cruz Brown MD Work Phone: Start: 11-28-2024 Follow-up visit Follow-up CLARA JONES Start: 09-21-2024 Basic metabolic panel calcium total Krys l R. Kip DO Work Phone: Start: 09-01-2024 Basic metabolic panel calcium total Kerline Roberts MD Work Phone: Start: 08-31-2024 End: 08-31-2024 Comprehensive metabolic panel Jorge tran MD Work Phone: Start: 08-30-2024 Basic metabolic panel calcium total Kerline Roberts MD Work Phone: Start: 08-30-2024 Radiologic exam chest single view Jorge Roberts MD Work Phone: Start: 08-30-2024 RESPIRATORY CARE EVALUATION ONLY Jorge Roberts MD Work Phone: Start: 08-30-2024 End: 08-30-2024 TRANSFUSE PLASMA Marc Asher DO Work Phone: Start: 08-30-2024 Blood typing serologic rh (d) Marc Tianna Ahser DO Work Phone: Start: 08-30-2024 PREPARE PLASMA Marc Wynn Asher DO Work Phone: Start: 08-30-2024 EXTRA TUBES Marc Wynn Asher DO Work Phone: Start: 08-30-2024 OTTO TOP Marc Wynn Asher DO Work Phone: Start: 08-30-2024 LAVENDER TOP Marc Wynn Asher DO Work Phone: Start: 08-30-2024 LIGHT BLUE TOP Marc Wynn Asher DO Work Phone: Start: 08-30-2024 PST TOP Marc Wynn Asher DO Work Phone: Start: 08-30-2024 VERAB/VERIFY ABORH Marc Wynn Asher DO Work Phone: Start: 08-30-2024 Basic metabolic panel calcium total Rich marie Cordovaersen DO Work Phone: Start: 08-30-2024 PB ED PLACEHOLDER Marc Tianna Asher DO Work Phone: Start: 07-25-2024 SCAN OTHER ORDERS Tremayne R. Kip DO Work Phone: Start: 04-25-2024 Sars-cov-2 detection by dna/rna Logeshemanth Jacques MD Work Phone: Start: 04-25-2024 Basic metabolic panel calcium total Loge jenae Jacques MD Work Phone: Start: 04-23-2024 EXTRA TUBES Jorge Roberts MD Work Phone: Start: 04-23-2024 SST TOP Jorge Roberts MD Work Phone: Start: 04-23-2024 Basic metabolic panel calcium total Kerline Roberts MD Work Phone: Start: 04-22-2024 Egd percutaneous placement gastrostomy tube Clara Jones DO Work Phone: Start: 04-22-2024 End: 04-22-2024 Basic metabolic panel calcium total Kerline Roberts MD Work Phone: Start: 04-21-2024 Glucose quantitative blood xcpt reagent strip Jorge Roberst MD Work Phone: Start: 04-21-2024 EXTRA TUBES Jorge Roberts MD Work Phone: Start: 04-21-2024 SST TOP Jorge Roberts MD Work Phone: Start: 04-21-2024 Basic metabolic panel calcium total Kerline Roberts MD Work Phone: Start: 04-20-2024 Comprehensive metabolic panel Nissa Longoria Deng key DO Work Phone: Start: 04-19-2024 Sars-cov-2 detection by dna/rna Jorge Roberts MD Work Phone: Start: 04-19-2024 EXTRA TUBES Jorge Roberts MD Work Phone: Start: 04-19-2024 LAVENDER TOP Jorge Roberts MD Work Phone: Start: 04-19-2024 PST TOP Jorge Roberts MD Work Phone: Start: 04-19-2024 Assay of parathormone Jorge Roberts MD Work Phone: Start: 04-19-2024 Glucose quantitative blood xcpt reagent strip Jorge Roberts MD Work Phone: Start: 04-19-2024 Glucose quantitative blood xcpt reagent strip Jorge Roberts MD Work Phone: Start: 04-19-2024 Comprehensive metabolic panel Jorge tran MD Work Phone: Start: 04-18-2024 Glucose quantitative blood xcpt reagent strip Jorge Roberts MD Work Phone: Start: 04-18-2024 RESPIRATORY CARE EVALUATION ONLY Jorge Roberts MD Work Phone: Start: 04-18-2024 Assay of osmolality urine Jorge Wynn Work Phone: Start: 04-18-2024 Culture bacterial quanttative colony count urine Jorge Roberts MD Work Phone: Start: 04-18-2024 EXTRA URINE OTTO TUBE Jorge Roberts MD Work Phone: Start: 04-18-2024 Urinalysis complete W Reflex Culture panel - Urine Jorge Roberts MD Work Phone: Start: 04-18-2024 Urinalysis microscopic panel - Urine Qualitative by Automated Jorge Roberts MD Work Phone: Start: 04-18-2024 Glucose quantitative blood xcpt reagent strip Jorge Roberts MD Work Phone: Start: 04-18-2024 Assay of lactate Lazaro Handy MD Work Phone: Start: 04-18-2024 Culture bacterial blood aerobic w/id isolates Lazaro Handy MD Work Phone: Start: 04-18-2024 Ct head/brain w/o contrast material Lazaro Handy MD Work Phone: Start: 04-18-2024 Comprehensive metabolic panel Lazaro dickens MD Work Phone: Start: 04-18-2024 Influenza virus A and B RNA [Identifier] in Unspecified specimen by LEGIN with probe detection Lazaro Handy MD Work Phone: Start: 04-18-2024 Radiologic exam chest single view Lazaro Handy MD Work Phone: Start: 04-18-2024 SARS-CoV-2 (COVID-19) RNA [Presence] in Respiratory specimen by ELGIN with probe detection Lazaro Handy MD Work Phone: Start: 04-18-2024 Culture bacterial quanttative colony count urine Lazaro Handy MD Work Phone: Start: 04-18-2024 EXTRA URINE OTTO TUBE Lazaro Handy MD Work Phone: Start: 04-18-2024 Urinalysis complete W Reflex Culture panel - Urine Lazaro Handy MD Work Phone: Start: 04-18-2024 Urinalysis microscopic panel - Urine Qualitative by Automated Lazaro Handy MD Work Phone: Start: 04-18-2024 Ecg routine ecg w/least 12 lds trcg only w/o i&r Jorge Roberts MD Work Phone: Start: 04-18-2024 Thyrotropin [Units/volume] in Serum or Plasma Lazaro Handy MD Work Phone: Start: 03-21-2024 Lipid 1996 panel - Serum or Plasma Tana Yan MANAGER CLINICAL INFORMATICS-STORM CHASER Work Phone: Start: 03-21-2024 Thyrotropin [Units/volume] in Serum or Plasma Tana Yan MANAGER CLINICAL INFORMATICS-STORM CHASER Work Phone: Start: 10-14-2023 Ammonia [Mass/volume] in Plasma SHANDA OB LESLI Start: 10-14-2023 CARBAMAZEPINE SHANDA HUIZAR Start: 10-14-2023 CBC panel - Blood by Automated count SHANDA HUIZAR Start: 10-14-2023 Comprehensive metabolic 2000 panel - Serum or Plasma SHANDA HUIZAR Start: 10-14-2023 LAMOTRIGINE SHANDA HUIZAR Start: 10-14-2023 VITAMIN D 1,25 DIHYDROXY SHANDA VANESSA R Start: 10-05-2023 Colonoscopy flx dx w/collj spec when pfrmd Clara Jones DO Work Phone: Start: 10-05-2023 Glucose quantitative blood xcpt reagent strip Cruz Brown MD Work Phone: Start: 07-27-2023 Thyrotropin [Units/volume] in Serum or Plasma Shanda Huizar DO Work Phone: Start: 02-27-[address] Goldie michael Work Phone: Start: 08-09-2022 End: 08-09-2022 Gas panel - Arterial blood Corky Herrera Start: 08-08-2022 End: 08-09-2022 EKG impression Corky Younger Start: 02-26-2022 Lipid 1996 panel - Serum or Plasma Shanda Vivekenmadeannaenma DO Work Phone: Start: 02-25-2022 Dual energy X-ray absorptiometry Dr. Abhay Mobley Work Phone: Start: 02-25-[address] Goldie michael Work Phone: Start: 03-11-2021 3 comp foot exam completed Kaykay Watso n ALEXANDRA Work Phone: Start: 08-22-2019 3 comp foot exam completed Kaykay Watso n Start: 11-24-2018 3 comp foot exam completed Lindsay Echols Start: 04-22-2018 3 comp foot exam completed Luis Daniel James Plan of Treatment Date Care Activity Detail Author Start: 01-27-2034 DTaP/Tdap/Td Vaccines (2 - Td or Tdap) DTaP/Tdap/Td Vaccines (2 - Td or Tdap) [facility] Start: 01-27-2034 Tetanus vaccination Tetanus: Every 10yrs [facility] Start: 01-27-2034 Urine microalbumin profile DTaP,Tdap,Td Vaccine (2 - T d or Tdap) [facility] Start: 10-13-2026 Diabetes Screening Diabetes Screening [facility] Start: 11-29-2025 End: 11-29-2025 Patient encounter procedure 11/29/2025 9:00 AM EDT Off ice Visit [facility] [address] [place] [address] Boni Salter II, OD [address] [place] [address] Eye exam Medicare/Medicaid Optometry Comment on above: Eye exam Medicare/Medicaid Start: 11-23-2025 Glaucoma screening Dilated Retinal Exam [facility] Start: 11-17-2025 Glaucoma screening Diabetes: Retinopathy Screening [facility] Start: 11-16-2025 Depression screening using PHQ-9 (Patient Health Questionnaire 9) score Depression Screening/Follow-Up (PHQ-2/9) [facility] Start: 10-11-2025 eGFR Diabetes eGFR Diabetes [facility] Start: 10-11-2025 Urine screening for protein eGFR Diabetes [facility] Start: 10-06-2025 Urine screening for protein eGFR Diabetes [facility] Start: 09-21-2025 Urine screening for protein eGFR Diabetes [facility] Start: 07-27-2025 End: 07-27-2025 Patient encounter procedure 07/27/2025 11:20 AM EST Office Visit [facility] [address] [place] [address] Tremayne Andrade DO [address] [address] [facility] Start: 04-19-2025 End: 04-19-2025 Patient encounter procedure 04/19/2025 11:00 AM EDT Office Visit [facility] [address] [place] [phone] Soto Tony Jr., DPM [address] [place] [address] [facility] Start: 04-18-2025 Thyroid stimulating hormone measurement TSH Level [facility] Start: 04-10-2025 Influenza vaccination [facility] Start: 03-21-2025 Hepatitis B surface antibody level LDL Cholesterol [facility] Start: 03-21-2025 Lipid panel Lipid Panel [facility] Start: 03-21-2025 Thyroid stimulating hormone measurement TSH Level [facility] Start: 03-21-2025 End: 03-21-2025 Patient encounter procedure 03/21/2025 10:40 AM EDT Office Visit [facility] [address] [place] [address] Tremayne Andrade DO [address] [address] [facility] Start: 01-18-2025 End: 01-18-2025 Patient encounter procedure 01/18/2025 10:00 AM EDT Office Visit [facility] [address] [place] [address] Soto Tony Jr., DPM [address] [place] [address] [facility] Start: 12-27-2024 End: 12-27-2024 Patient encounter procedure 12/27/2024 10:40 AM EDT Office Visit [facility] [address] [place] [phone] Tremayne Andrade, [address] [place] [phone] [facility] Start: 12-26-2024 End: 12-26-2024 Patient encounter procedure 12/26/2024 7:[address] [facility] [place] [address] [place] [address] Clara Jones, DO [address] [facility] [place] [id number] [facility] [place] Start: 12-25-2024 Hemoglobin A1c measurement [facility] Start: 12-11-2024 COVID-19 Vaccine () COVID-19 Vaccine () [facility] Start: 12-11-2024 Covid-19 Vaccine ( season) Covid-19 Vaccine () [facility] Start: 11-28-2024 End: 11-28-2025 Esophagogastroduodenoscopy Esophagogastroduodenoscopy (EGD) Endoscopy Routine S/P percutaneous endoscopic gastrostomy (PEG) tube placement (Multi) Seizures (Multi) Expected: 11/28/2024, Expires: 11/28/2025 [facility] Service Area Work Phone: Comment on above: Expected: 11/28/2024, Expires: Start: 11-17-2024 Glaucoma screening [facility] Start: 11-16-2024 End: 11-16-2024 Patient encounter procedure 11/16/2024 10:40 AM EDT Office Visit [facility] [address] [place] [phone] Tremayne Andrade DO [address] [place] [address] [facility] Start: 11-03-2024 End: 11-03-2024 Nutrition therapy 11/03/2024 12:00 PM EDT Nutrition [facility] [address] [place] [address] Dhaval Shelton, MARY [facility] Start: 10-19-2024 End: 10-19-2024 Patient encounter procedure 10/19/2024 10:00 AM EDT Office Visit [facility] [address] [place] [phone] Soto Tony Jr., DPM [address] [place] [phone] [facility] Start: 10-17-2024 End: 10-17-2024 Patient encounter procedure 10/17/2024 10:40 AM EDT Office Visit [facility] [address] [place] [phone] [place] [address] [place] [address] [facility] Start: 10-07-2024 End: 10-07-2024 Nutrition therapy 10/07/2024 1:30 PM EST Nutrition [facility] [address] [place] [address] Tremayne Andrade, [address] [address] Dhaval Shelton, MARY [facility] Start: 09-29-2024 End: 09-22-2025 Basic metabolic 2000 panel - Serum or Plasma Basic Metabolic Panel Lab Routine Hyponatremia Expected: 09/29/2024 (Approximate), Expires: 09/22/2025 [facility] Work Phone: Comment on above: Expected: 09/29/2024 (Approximate), Expi res: 09/22/2025 Start: 09-27-2024 Hemoglobin A1c measurement Diabetes: Hemoglobin A1C [facility] Start: 09-21-2024 Hemoglobin A1c measurement A1C [facility] Start: 09-06-2024 End: 09-06-2024 Patient encounter procedure 09/06/2024 10:30 AM EST Office Visit [facility] [address] [place] [phone] Tana Yan, MANAGER CLINICAL INFORMATICS-STORM CHASER [address] [facility] [place] [address] [facility] Start: 08-23-2024 End: 08-23-2025 Basic metabolic 2000 panel - Serum or Plasma Basic Metabolic Panel Lab Routine Hyponatremia Expected: 08/23/2024 (Approximate), Expires: 08/23/2025 [facility] Service Area Work Phone: Comment on above: Expected: 08/23/2024 (Approximate), Expi res: 08/23/2025 Start: 08-23-2024 End: 08-23-2024 Patient encounter procedure 08/23/2024 11:40 AM EST Office Visit [facility] [address] [place] [phone] Shanda Huizar, DO [address] [facility] [place] [address] [facility] Start: 08-10-2024 Advance Directive Discussion Advance Directive Discussion Cl [facility] Start: 07-25-2024 End: 07-25-2025 Basic metabolic 2000 panel - Serum or Plasma [facility] Area Work Phone: Comment on above: Expected: 07/25/2024 (Approximate), Expi res: 07/25/2025 Start: 07-25-2024 End: 07-25-2024 Patient encounter procedure 07/25/2024 10:00 AM EST Office Visit [facility] Primary [place] [address] [address] Shanda Huizar DO [address] [facility] [place] [address] [facility] Start: 06-30-2024 Hemoglobin A1c measurement A1C [facility] Start: 06-27-2024 End: 06-27-2025 Comprehensive metabolic 2000 panel - Serum or Plasma Comprehensive Metabolic Panel Lab Routine Hypercalcemia Expected: 06/27/2024 (Approximate), Expires: 06/27/[address] [facility] Work Phone: Comment on above: Expected: 06/27/2024 (Approximate), Expi res: 06/27/2025 Start: 06-27-2024 End: 06-27-2025 Hemoglobin A1c/Hemoglobin.total in Blood Hemoglobin A1C Lab Routine Diabetic autonomic neuropathy associated with type 2 diabetes mellitus (Multi) Expected: 06/27/2024 (Approximate), Expires: 06/27/2025 [facility] Work Phone: Comment on above: Expected: 06/27/2024 (Approximate), Expi res: 06/27/2025 Start: 06-21-2024 Hemoglobin A1c measurement Diabetes: Hemoglobin A1C [facility] Start: 06-15-2024 End: 06-15-2024 Patient encounter procedure 06/15/2024 11:00 AM EST Office Visit [facility] [address] [place] [address] Soto Tony Jr., DPM [address] [address] [facility] Start: 05-23-2024 End: 05-23-2024 Patient encounter procedure 05/23/2024 1:20 PM EDT Off ice Visit [facility] [address] [place] [address] Shanda Huizar, [address] [facility] [address] [facility] [place] [address] [facility] Start: 05-16-2024 End: 05-16-2024 Patient encounter procedure 05/16/2024 12:45 PM EDT Office Visit [facility] [address] [place] [phone] Clara Jones DO [address] [facility] [address] [place] [phone] [facility] Start: 04-10-2024 COVID-19 Vaccine ( season) COVID-19 Vaccine ( season) [facility] Start: 04-10-2024 Covid-19 Vaccine ( season) Covid-19 Vaccine ( season) [facility] Start: 04-10-2024 Covid-19 Vaccine ( season) Covid-19 Vaccine ( season) [facility] Start: 04-10-2024 Influenza vaccination Influenza Vaccine (#1) [facility] Start: 03-30-2024 Hemoglobin A1c measurement Diabetes: Hemoglobin A1C [facility] Start: 03-28-2024 End: 03-28-2024 Patient encounter procedure 03/28/2024 10:00 AM EDT Office Visit [facility] [address] [place] [address] Kaykay Bess, STORM CHASER [address] [place] [address] [facility] Start: 03-24-2024 End: 03-24-2025 Cobalamin (Vitamin B12) [Mass/volume] in Serum or Plasma [facility] Service Area Work Phone: Comment on above: Expected: 03/24/2024 (Approximate), Expi res: 03/24/2025 Start: 03-18-2024 End: 03-18-2024 Patient encounter procedure 03/18/2024 10:15 AM EDT Office Visit [facility] [address] [place] [phone] Soto Tony Jr., DPM [address] [place] [address] [facility] Start: 03-10-2024 End: 03-23-2024 Complete blood count with white cell differential, manual CBC and Differential Lab Routine Diabetic autonomic neuropathy associated with type 2 diabetes mellitus (HCC) Hypothyroidism, unspecified type Expected: 03/10/2024, Expires: 03/23/2024 [facility] Comment on above: Expected: 03/10/2024, Expires: Start: 03-10-2024 End: 03-23-2024 Comprehensive metabolic 2000 panel - Serum or Plasma Comprehensive Metabolic Panel Lab Routine Diabetic autonomic neuropathy associated with type 2 diabetes mellitus (HCC) Hypothyroidism, unspecified type Expected: 03/10/2024, Expires: 03/23/2024 [facility] Work Phone: Comment on above: Expected: 03/10/2024, Expires: Start: 03-10-2024 End: 03-23-2024 Hemoglobin A1c/Hemoglobin.total in Blood Hemoglobin A1c Lab Routine Diabetic autonomic neuropathy associated with type 2 diabetes mellitus (HCC) Hypothyroidism, unspecified type Expected: 03/10/2024, Expires: 03/23/2024 [facility] Comment on above: Expected: 03/10/2024, Expires: Start: 03-10-2024 End: 03-23-2024 Lipid 1996 panel - Serum or Plasma Lipid Panel Lab Routine Diabetic autonomic neuropathy associated with type 2 diabetes mellitus (HCC) Hypothyroidism, unspecified type Expected: 03/10/2024, Expires: 03/23/2024 [facility] Comment on above: Expected: 03/10/2024, Expires: Start: 03-10-2024 End: 03-23-2024 Thyrotropin [Units/volume] in Serum or Plasma TSH Lab Routine Diabetic autonomic neuropathy associated with type 2 diabetes mellitus (HCC) Hypothyroidism, unspecified type Expected: 03/10/2024, Expires: 03/23/2024 [facility] Comment on above: Expected: 03/10/2024, Expires: Start: 03-10-2024 End: 03-23-2024 Thyroxine (T4) free [Mass/volume] in Serum or Plasma T4, Free Lab Routine Diabetic autonomic neuropathy associated with type 2 diabetes mellitus (HCC) Hypothyroidism, unspecified type Expected: 03/10/2024, Expires: 03/23/2024 [facility] Comment on above: Expected: 03/10/2024, Expires: Start: 03-05-2024 Thyroid stimulating hormone measurement TSH Level [facility] Start: 02-26-2024 Screening for osteoporosis Bone Density Scan [facility] Start: 12-16-2023 End: 12-16-2023 Patient encounter procedure 12/16/2023 10:00 AM EDT Office Visit [facility] [address] [place] [id number] Soto Tony Jr., DPM [address] [place] [address] [facility] Start: 12-09-2023 End: 12-08-2024 Hemoglobin A1c/Hemoglobin.total in Blood Hemoglobin A1C Lab Routine Controlled type 2 diabetes mellitus without complication, with long-term current use of insulin (Multi) Expected: 12/09/2023 (Approximate), Expires: 12/08/2024 [facility] Service Area Work Phone: Comment on above: Expected: 12/09/2023 (Approximate), Expi res: 12/08/2024 Start: 09-28-2023 COVID-19 Vaccine () COVID-19 Vaccine () [facility] Start: 09-28-2023 COVID-19 Vaccine () COVID-19 Vaccine () [facility] Start: 09-16-2023 End: 09-16-2023 Patient encounter procedure 09/16/2023 10:00 AM EST Office Visit [facility] [address] [address] Soto Tony Jr., DPAngelito [address] [place] [address] [facility] Start: 09-05-2023 Hemoglobin A1c measurement [facility] Start: 08-10-2023 Advance Directive Discussion Advance Directive Discussion [facility] Start: 08-10-2023 Behavioral Health Screening Behavioral Health Screening [facility] Start: 07-23-2023 COVID-19 Vaccine (5 - Pfizer series) COVID-19 Vaccine (5 - Pfizer series) [facility] Start: 07-22-2023 Administration of herpes zoster vaccine Zoster Vaccines (2 of 2) [facility] Start: 07-22-2023 Zoster Vaccines (2 of 2) Zoster Vaccines (2 of 2) [facility] Start: 06-12-2023 End: 06-12-2023 Patient encounter procedure 06/12/2023 10:00 AM EDT Office Visit [facility] [address] [place] [address] Soto Tony Jr., CURTIS [address] [place] [address] [facility] Start: 06-05-2023 Hemoglobin A1c measurement Diabetes: Hemoglobin A1C [facility] Start: 04-10-2023 Influenza vaccination [facility] Start: 03-23-2023 End: 03-23-2023 Patient encounter procedure 03/23/2023 10:00 AM EDT Office Visit [facility] [address] [place] [address] Kaykay Bess, STORM CHASER [address] [place] [address] [facility] [place] Start: 03-16-2023 End: 03-16-2023 Patient encounter procedure 03/16/2023 Office Visit Endocrinology Kaykay Bess, ALEXANDRA [address] [place] [address] [facility] [place] Start: 03-08-2023 End: 03-11-2023 Complete blood count with white cell differential, manual CBC and Differential Lab Routine Diabetic autonomic neuropathy associated with type 2 diabetes mellitus (HCC) Expected: 03/08/2023, Expires: 03/11/2023 [facility] Comment on above: Expected: 03/08/2023, Expires: 3 Start: 03-08-2023 End: 03-11-2023 Comprehensive metabolic 2000 panel - Serum or Plasma Comprehensive Metabolic Panel Lab Routine Diabetic autonomic neuropathy associated with type 2 diabetes mellitus (HCC) Expected: 03/08/2023, Expires: 03/11/2023 [facility] Work Phone: Comment on above: Expected: 03/08/2023, Expires: 3 Start: 03-08-2023 End: 03-11-2023 Hemoglobin A1c/Hemoglobin.total in Blood Hemoglobin A1c Lab Routine Diabetic autonomic neuropathy associated with type 2 diabetes mellitus (HCC) Expected: 03/08/2023, Expires: 03/11/2023 [facility] Comment on above: Expected: 03/08/2023, Expires: 3 Start: 03-08-2023 End: 03-11-2023 Thyrotropin [Units/volume] in Serum or Plasma TSH Lab Routine Diabetic autonomic neuropathy associated with type 2 diabetes mellitus (HCC) Expected: 03/08/2023, Expires: 03/11/2023 [facility] Comment on above: Expected: 03/08/2023, Expires: 3 Start: 03-08-2023 End: 03-11-2023 Thyroxine (T4) free [Mass/volume] in Serum or Plasma T4, Free Lab Routine Diabetic autonomic neuropathy associated with type 2 diabetes mellitus (HCC) Expected: 03/08/2023, Expires: 03/11/2023 [facility] Comment on above: Expected: 03/08/2023, Expires: 3 Start: 02-26-2023 Hepatitis B surface antibody level LDL Cholesterol [facility] Start: 02-26-2023 Lipid panel Lipid Panel [facility] Start: 02-26-2023 Urine screening for protein eGFR Diabetes [facility] Start: 01-01-2023 [facility] Start: 12-29-2022 [facility] Start: 11-07-2022 Hepatitis C antibody, confirmatory test DILATED RETINAL EXAM [facility] Start: 09-10-2022 End: 09-10-2022 Patient encounter procedure 09/10/2022 Office Visit Podiatry Soto Tony Jr., DPM [address] [place] [address] [facility] Start: 08-29-2022 Hemoglobin A1c measurement A1C [facility] Start: 08-15-2022 Patient referral [facility] Work Phone: Start: 08-11-2022 End: 08-11-2023 Insulin Lispro Moderate Corrective Scale MODERATE ; Give SubCutaneous 3 Times a Day Before Meals Hypoglycemia Protocol Call LIP unit(s) if Blood Glucose is between 0 - 70 0 unit(s) if Blood Glucose is between 71 - 150 4 unit(s) if Blood Glucose is between 151 - 200 6 unit(s) if Blood Glucose is between 201 - 250 8 unit(s) if Blood Glucose is between 251 - 300 10 unit(s) if Blood Glucose is between 301 - 350 12 unit(s) if Blood Glucose is between 351 - 400 Notify Physician unit(s) if Blood Glucose is greater than 400Notes from Pharmacy: TOMMY Start: 10-Aug-2022 End: 10-Aug-2023 Ordered: 10-Aug-[address] [facility] Start: 08-10-2022 ADVANCE DIRECTIVE DISCUSSION ADVANCE DIRECTIVE DISCUSSION [facility] Start: 08-10-2022 DEPRESSION ASSESSMENT DEPRESSION ASSESSMENT [facility] Start: 08-09-2022 End: 08-10-2023 [facility] Comment on above: IF patient HAS a secure IV access & is U nconscious, Conscious, NPO or Unable to Eat or Drink. Repeat until BG reaches 100 mg/dL or greater. Push 2-3 mL/minute. Discontinue Once BG reaches 100 mg/dL or greater. IF patient DOES NOT have secure IV access & is Unconscious, Conscious, NPO or Unable to Eat or Drink. Repeat until BG reaches 100 mg/dL or greater. Discontinue Once BG reaches 100 mg/dL or greater. Start: 04-10-2022 Influenza vaccination Sequential Influenza Vaccine (#1) [facility] Start: 03-12-2022 End: 03-12-2022 Patient encounter procedure 03/12/2022 Office Visit Podiatry Soto Tony Jr., DPAngelito [address] [place] [address] [facility] Start: 03-11-2022 Diabetic foot examination [facility] Start: 03-10-2022 End: 03-10-2022 Patient encounter procedure 03/10/2022 Office Visit Endocrinology Kaykay Bess, STORM CHASER [address] [place] [address] [phone] [facility] [place] Start: 03-04-2022 End: 03-12-2022 Complete blood count with white cell differential, manual CBC and Differential Lab Routine Diabetic autonomic neuropathy associated with type 2 diabetes mellitus (HCC) Expected: 03/04/2022, Expires: 03/12/2022 [facility] Comment on above: Expected: 03/04/2022, Expires: Start: 03-04-2022 End: 03-12-2022 Comprehensive metabolic 2000 panel - Serum or Plasma Comprehensive Metabolic Panel Lab Routine Diabetic autonomic neuropathy associated with type 2 diabetes mellitus (HCC) Expected: 03/04/2022, Expires: 03/12/2022 [facility] Comment on above: Expected: 03/04/2022, Expires: Start: 03-04-2022 End: 03-12-2022 Hemoglobin A1c/Hemoglobin.total in Blood Hemoglobin A1c Lab Routine Diabetic autonomic neuropathy associated with type 2 diabetes mellitus (HCC) Expected: 03/04/2022, Expires: 03/12/2022 [facility] Comment on above: Expected: 03/04/2022, Expires: Start: 03-04-2022 End: 03-12-2022 Lipid 1996 panel - Serum or Plasma Lipid Panel Lab Routine Diabetic autonomic neuropathy associated with type 2 diabetes mellitus (HCC) Expected: 03/04/2022, Expires: 03/12/2022 [facility] Comment on above: Expected: 03/04/2022, Expires: 2 Start: 03-04-2022 End: 03-12-2022 Thyrotropin [Units/volume] in Serum or Plasma TSH Lab Routine Diabetic autonomic neuropathy associated with type 2 diabetes mellitus (HCC) Expected: 03/04/2022, Expires: 03/12/2022 [facility] Comment on above: Expected: 03/04/2022, Expires: Start: 03-04-2022 End: 03-12-2022 Thyroxine (T4) free [Mass/volume] in Serum or Plasma T4, Free Lab Routine Diabetic autonomic neuropathy associated with type 2 diabetes mellitus (HCC) Expected: 03/04/2022, Expires: 03/12/2022 [facility] Comment on above: Expected: 03/04/2022, Expires: 2 Start: 08-29-2021 Hemoglobin A1c measurement A1C [facility] Start: 08-10-2021 ADVANCE DIRECTIVE DISCUSSION ADVANCE DIRECTIVE DISCUSSION [facility] Start: 04-10-2021 Influenza vaccination [facility] Start: 03-04-2021 End: 03-04-2021 Office Visit 03/04/2021 Office Visit Endocrinology Kaykay Bess, STORM CHASER [address] [address] [phone] [facility] Start: 02-07-2021 End: 02-27-2021 Complete blood count with white cell differential, manual CBC and Differential Lab Routine Diabetic autonomic neuropathy associated with type 2 diabetes mellitus (HCC) Expected: 02/07/2021, Expires: 02/27/2021 [facility] Comment on above: Expected: 02/07/2021, Expires: Start: 02-07-2021 End: 02-27-2021 Comprehensive metabolic 2000 panel Comprehensive Metabolic Panel Lab Routine Diabetic autonomic neuropathy associated with type 2 diabetes mellitus (HCC) Expected: 02/07/2021, Expires: 02/27/2021 [facility] Comment on above: Expected: 02/07/2021, Expires: Start: 02-07-2021 End: 02-27-2021 Free T4 [Mass/Vol] T4, Free Lab Routine Diabeti c autonomic neuropathy associated with type 2 diabetes mellitus (HCC) Expected: 02/07/2021, Expires: 02/27/2021 [facility] Comment on above: Expected: 02/07/2021, Expires: Start: 02-07-2021 End: 02-27-2021 HbA1c (Bld) [Mass fraction] Hemoglobin A1c Lab Routine Diabetic autonomic neuropathy associated with type 2 diabetes mellitus (HCC) Expected: 02/07/2021, Expires: 02/27/2021 [facility] Comment on above: Expected: 02/07/2021, Expires: Start: 02-07-2021 End: 02-27-2021 Lipid 1996 panel Lipid Panel Lab Routine Diabetic autonomic neuropathy associated with type 2 diabetes mellitus (HCC) Expected: 02/07/2021, Expires: 02/27/2021 [facility] Comment on above: Expected: 02/07/2021, Expires: Start: 02-07-2021 End: 02-27-2021 TSH Qn TSH Lab Routine Diabetic autonomic neuropathy associated with type 2 diabetes mellitus (HCC) Expected: 02/07/2021, Expires: 02/27/2021 [facility] Comment on above: Expected: 02/07/2021, Expires: Start: 08-24-2020 HbA1c (Bld) [Mass fraction] A1C [facility] Start: 08-22-2020 Diabetic foot examination Foot Exam [facility] Start: 05-17-2020 Pneumococcal vaccination Pneumococcal Vaccine Age 65+ (2 of 2 - PPSV23) [facility] Start: 04-10-2020 Influenza vaccination given Sequential Influenza Vacci ne (#1) [facility] Start: 02-27-2020 End: 02-27-2020 Office Visit 02/27/2020 Office Visit Endocrinology Kaykay Bess CNP [address] [place] [address] [phone] [facility] Start: 02-04-2020 HbA1c (Bld) [Mass fraction] A1C [facility] Start: 11-25-2019 Diabetic foot examination FOOT EXAM [facility] Start: 05-26-2019 End: 05-26-2019 Office Visit 05/26/2019 Office Visit Endocrinology Chaitanya Grier PA-C [address] [place] [address] [phone] [facility] Start: 05-18-2019 Hemoglobin A1c/Hemoglobin.total mass fraction (Bld) A1C [facility] Start: 04-22-2019 Diabetic foot examination FOOT EXAM [facility] Start: 04-10-2019 Influenza vaccination given SEQUENTIAL INFLUENZA VACCI NE (#1) [facility] Start: 2019 Respiratory Syncytial Virus Immunization: Risk, 60-74 Risk, or 75+ (1 - 1-dose 75+ series) Respiratory Syncytial Virus Immunization: Risk, 60-74 Risk, or 75+ (1 - 1-dose 75+ series) [facility] Start: 10-21-2018 End: 10-21-2018 Office Visit 10/21/2018 Office Visit Endocrinology Kaykay Bess CNP [address] [place] [address] [phone] [facility] Start: 04-22-2018 Ambulatory 04/22/2018 Office Visit Endocrinology Kaykay Bess CNP [address] [place] [address] [phone] [facility] Start: 04-20-2018 Diabetic foot examination (regime/therapy) FOOT EXAM [facility] Work Phone: Start: 04-15-2018 HbA1c HEMOGLOBIN A1C [facility] Start: 04-10-2018 Influenza vaccination given SEQUENTIAL INFLUENZA VACCI NE (#1) [facility] Start: 01-04-2018 Hemoglobin A1c/Hemoglobin.total mass fraction (Bld) HEMOGLOBIN A1C [facility] Work Phone: Start: 10-22-2017 Ambulatory 10/22/2017 Office Visit Endocrinology Izzy Storm PA-C [address] [place] [address] [phone] [facility] Start: 10-16-2017 Diabetic foot examination (regime/therapy) FOOT EXAM [facility] Work Phone: Start: 10-16-2017 FOOT EXAM FOOT EXAM [facility] Work Phone: Start: 10-12-2017 HbA1c HEMOGLOBIN A1C [facility] Work Phone: Start: 10-12-2017 HEMOGLOBIN A1C HEMOGLOBIN A1C [facility] Work Phone: Start: 04-20-2017 Ambulatory 04/20/2017 Office Visit Endocrinology Kaykay Bess, ALEXANDRA [address] [place] [address] [phone] [facility] Start: 04-10-2017 Influenza vaccination SEQUENTIAL INFLUENZA VACCINE (#1) [facility] Work Phone: Start: 04-10-2017 SEQUENTIAL INFLUENZA VACCINE (#1) SEQUENTIAL INFLUENZA VACCINE (#1) [facility] Work Phone: Start: 2009 BONE DENSITY BONE DENSITY [facility] Start: 2009 Fall risk assessment [facility] Start: 2009 Pneumococcal vaccination PNEUMOCOCCAL VACCINE AGE 65+ (1 of 2 - PCV13) [facility] Work Phone: Start: 2009 PNEUMOCOCCAL VACCINE AGE 65+ (1 of 2 - PCV13) PNEUMOCOCCAL VACCINE AGE 65+ (1 of 2 - PCV13) [facility] Work Phone: Start: 2009 PNEUMOVAX AGE 65 AND OVER WITH 5YR LOOKBACK (#1) PNEUMOVAX AGE 65 AND OVER WITH 5YR LOOKBACK (#1) [facility] Start: 2009 Screening for osteoporosis Bone Density Screening [facility] Start: 2004 Hepatitis B Vaccines (1 of 3 - Risk 3-dose series) Hepatitis B Vaccines (1 of 3 - Risk 3-dose series) [facility] Start: 2004 Zoster vacc, sc ZOSTER VACCINE [facility] Work Phone: Start: 1994 Administration of herpes zoster vaccine ZOSTER VACCINES (1 of 2) [facility] Start: 1994 SHINGRIX VACCINE (1 of 2) SHINGRIX VACCINE (1 of 2) [facility] Start: 1984 Screening for malignant neoplasm of breast Mammogram [facility] Start: 1966 DTaP/Tdap/Td Vaccines (1 - Tdap) DTaP/Tdap/Td Vaccines (1 - Tdap) [facility] Start: 1963 Hepatitis A Vaccines (1 of 2 - Risk 2-dose series) Hepatitis A Vaccines (1 of 2 - Risk 2-dose series) [facility] Start: 1963 Urine microalbumin profile [place] Start: 1963 Urine screening for protein Diabetes: Urine Protein Screening [facility] Start: 1962 ANNUAL PCP TEAM CHRONIC DISEASE VISIT ANNUAL PCP TEAM CHRONIC DISEASE VISIT [facility] Start: 1962 Anxiety Screening Anxiety Screening [facility] Start: 1962 Depression Screening Depression Screening [facility] Start: 1962 Hepatitis B surface antibody level LDL CHOLESTEROL [facility] Start: 1962 Hepatitis C antibody, confirmatory test Hepatitis C Screening [facility] Start: 1962 Hepatitis C screening Hepatitis C Screening [facility] Start: 1962 HEPATITIS C SCREENING HEPATITIS C SCREENING [facility] Start: 1956 Depression screening using PHQ-9 (Patient Health Questionnaire 9) score [facility] Start: 1954 3 comp foot exam completed DIABETIC FOOT EXAM [facility] Start: 1954 Diabetic foot examination [facility] Start: 1954 Glaucoma screening [facility] Start: 1954 Hepatitis B screening URINE ALBUMIN:CREATININE RATIO [facility] Start: 1954 Microalbumin measurement, urine, quantitative Urine Microalbumin [facility] Start: 1954 Urine screening for protein [facility] Start: 1954 End: 1954 Ophthalmic examination and evaluation OPHTHALMOLOGY EXAM [facility] Start: 1954 OPHTHALMOLOGY EXAM OPHTHALMOLOGY EXAM [facility] Work Phone: Start: 1954 URINE MICROALBUMIN URINE MICROALBUMIN [facility] Work Phone: Start: 1954 End: 1954 Urine, microalbumin URINE MICROALBUMIN [facility] Work Phone: Start: 1950 Pneumococcal Vaccine: Age 65+ (1 of 2 - PPSV23) Pneumococcal Vaccine: Age 65+ (1 of 2 - PPSV23) [facility] Start: 1950 PNEUMOCOCCAL: 65+ (1 - PCV) PNEUMOCOCCAL: 65+ (1 - PCV) [facility] Start: 1949 Hemoglobin A1c/Hemoglobin.total in Blood HBA1C [facility] Start: 1947 History and physical examination, annual for health maintenance Wellness Visit [facility] Start: 1947 Medicare Wellness Visit Medicare Wellness Visit [facility] Start: 1944 Colonoscopy COLONOSCOPY [facility] Work Phone: Start: 1944 DEXA SCAN DEXA SCAN [facility] Work Phone: Start: 1944 Fall risk assessment Falls Risk Assessment [facility] Start: 1944 Medicare Annual Wellness Visit Medicare Annual Wellness Visit (AWV) [facility] Start: 1944 Protein mass conc [facility] Start: 1944 Screening colonoscopy COLONOSCOPY [facility] Work Phone: Start: 1944 Screening for malignant neoplasm of colon Colorectal Cancer Screening: Colonoscopy [facility] Start: 1944 Screening for osteoporosis [facility] Start: 1944 Screening mammography Mammogram [facility] Start: 1944 TETANUS EVERY 10 YR TETANUS EVERY 10 YR [facility] Work Phone: Start: 1944 Tetanus vaccination [facility] Start: 1944 Urine screening for protein Diabetes: Urine Protein Screening [facility] End: 04-18-2024 Basic metabolic 2000 panel - Serum or Plasma Basic metabolic panel Lab Timed This frequency is intended to be used for lab level procedures, or other lab procedures that should be ordered one time at a specific time. Order transmittal will set the priority to timed for procedures orderd with this frequency. for 1 Occurrences starting 04/18/2024 until 04/18/2024 [facility] Work Phone: Comment on above: This frequency is intended to be used fo r lab level procedures, or other lab procedures that should be ordered one time at a specific time. Order transmittal will set the priority to timed for procedures orderd with this frequency. for 1 Occurrences starting 04/18/2024 until 04/18/2024 Blood ammonia measurement [facility] carBAMazepine [Mass/ volume] in Serum or Plasma [facility] End: 10-23-2018 CBC and Differential CBC and Differential Routine Type 2 diabetes mellitus without complication, with long-term current use of insulin (HCC) 1 Occurrences starting 10/22/2017 until 10/23/2018 [facility] Complete blood count [facility] End: 11-25-2019 Complete blood count with white cell differential, manual CBC and Differential Routine Type 2 diabetes mellitus without complication, with long-term current use of insulin (HCC) Hypothyroidism, unspecified type 1 Occurrences starting 11/24/2018 until 11/25/2019 [facility] Comment on above: 1 Occurrences starting 11/24/2018 until 11/25/2019 End: 08-22-2020 Complete blood count with white cell differential, manual CBC and Differential Lab Routine Diabetic autonomic neuropathy associated with type 2 diabetes mellitus (HCC) 1 Occurrences starting 08/22/2019 until 08/22/2020 [facility] Comment on above: 1 Occurrences starting 08/22/2019 until 08/22/2020 End: 11-25-2019 Comprehensive metabolic 2000 panel Comprehensive Metabolic Panel Routine Type 2 diabetes mellitus without complication, with long-term current use of insulin (HCC) Hypothyroidism, unspecified type 1 Occurrences starting 11/24/2018 until 11/25/2019 [facility] Comment on above: 1 Occurrences starting 11/24/2018 until 11/25/2019 End: 08-22-2020 Comprehensive metabolic 2000 panel Comprehensive Metabolic Panel Lab Routine Diabetic autonomic neuropathy associated with type 2 diabetes mellitus (HCC) 1 Occurrences starting 08/22/2019 until 08/22/2020 [facility] Comment on above: 1 Occurrences starting 08/22/2019 until 08/22/2020 Comprehensive metabo lic 2000 panel - Serum or Plasma [facility] End: 10-23-2018 Comprehensive metabolic panel [AGGREGATE] Comprehensive Metabolic Panel Routine Type 2 diabetes mellitus without complication, with long-term current use of insulin (HCC) 1 Occurrences starting 10/22/2017 until 10/23/2018 [facility] End: 04-21-2018 Comprehensive metabolic panel [AGGREGATE] Comprehensive Metabolic Panel Routine Diabetic autonomic neuropathy associated with type 2 diabetes mellitus (HCC) 1 Occurrences starting 04/20/2017 until 04/21/2018 [facility] Work Phone: Electrocardiogram, 1 2-lead PRN ACS symptoms Electrocardiogram, 12-lead PRN ACS symptoms ECG Routine As needed until discontinued starting 04/18/2024 [facility] Service Area Work Phone: Comment on above: As needed until discontinued starting Electrocardiogram, 1 2-lead PRN ACS symptoms Electrocardiogram, 12-lead PRN ACS symptoms ECG Routine As needed until discontinued starting 08/30/2024 [facility] Work Phone: Comment on above: As needed until discontinued starting End: 10-22-2018 External Lab Microalbumin/Creatinine External Lab Microalbumin/Creatinine Routine Type 2 diabetes mellitus without complication, with long-term current use of insulin (HCC) 1 Occurrences starting 10/22/2017 until 10/22/2018 [facility] End: 08-22-2020 Free T4 [Mass/Vol] T4, Free Lab Routine Diabeti c autonomic neuropathy associated with type 2 diabetes mellitus (HCC) 1 Occurrences starting 08/22/2019 until 08/22/2020 [facility] Comment on above: 1 Occurrences starting 08/22/2019 until 08/22/2020 End: 10-23-2018 HbA1c Hemoglobin A1c Routine Type 2 diabetes mellitus without complication, with long-term current use of insulin (HCC) 1 Occurrences starting 10/22/2017 until 10/23/2018 [facility] End: 04-21-2018 HbA1c Hemoglobin A1c Routine Diabetic autonomic neuropathy associated with type 2 diabetes mellitus (HCC) 1 Occurrences starting 04/20/2017 until 04/21/2018 [facility] Work Phone: End: 08-22-2020 HbA1c (Bld) [Mass fraction] Hemoglobin A1c Lab Routine Diabetic autonomic neuropathy associated with type 2 diabetes mellitus (HCC) 1 Occurrences starting 08/22/2019 until 08/22/2020 [facility] Comment on above: 1 Occurrences starting 08/22/2019 until 08/22/2020 End: 11-25-2019 Hemoglobin A1c/Hemoglobin.total mass fraction (Bld) Hemoglobin A1c Routine Type 2 diabetes mellitus without complication, with long-term current use of insulin (HCC) Hypothyroidism, unspecified type 1 Occurrences starting 11/24/2018 until 11/25/2019 [facility] Comment on above: 1 Occurrences starting 11/24/2018 until 11/25/2019 End: 04-18-2024 Hemoglobin.gastrointestinal [Presence] in Stool --1st specimen Occult Blood, Stool Microbiology Routine Once (Lab) for 1 Occurrences starting 04/18/2024 until 04/18/2024 [facility] Work Phone: Comment on above: Once (Lab) for 1 Occurrences starting until 04/18/2024 Lamotrigine measurement [facility] End: 11-25-2019 Lipid 1996 panel Lipid Panel Routine Type 2 diabetes mellitus without complication, with long-term current use of insulin (HCC) Hypothyroidism, unspecified type 1 Occurrences starting 11/24/2018 until 11/25/2019 [facility] Comment on above: 1 Occurrences starting 11/24/2018 until 11/25/2019 End: 08-22-2020 Lipid 1996 panel Lipid Panel Lab Routine Diabetic autonomic neuropathy associated with type 2 diabetes mellitus (HCC) 1 Occurrences starting 08/22/2019 until 08/22/2020 [facility] Comment on above: 1 Occurrences starting 08/22/2019 until 08/22/2020 End: 10-23-2018 Lipid panel Lipid Panel Routine Type 2 diabetes mellitus without complication, with long-term current use of insulin (HCC) 1 Occurrences starting 10/22/2017 until 10/23/2018 [facility] End: 04-21-2018 Lipid panel Lipid Panel Routine Diabetic autonomic neuropathy associated with type 2 diabetes mellitus (HCC) 1 Occurrences starting 04/20/2017 until 04/21/2018 [facility] Work Phone: MG Breast - bilatera l Screening [facility] End: 11-24-2025 MTB SCREEN MTB SCREEN Lab Routine At risk for tuberculosis 1 Occurrences starting 11/24/2024 until 11/24/2025 [facility] Work Phone: Comment on above: 1 Occurrences starting 11/24/2024 until 11/24/2025 End: 04-20-2024 Music Therapy eval and treat Music Therapy eval and tr eat Therapeutic Recreation Orderables Routine Until therapy completed for 1 Occurrences starting 04/20/2024 until 04/20/2024 [facility] Service Area Work Phone: Comment on above: Until therapy completed for 1 Occurrence s starting 04/20/2024 until 04/20/2024 End: 08-30-2024 Nasotracheal suctioning Nasotracheal suctioning Respiratory Care Routine Once for 1 Occurrences starting 08/30/2024 until 08/30/2024 [facility] Service Area Work Phone: Comment on above: Once for 1 Occurrences starting 08/30/19 until 08/30/2024 Patient referral [facility] Work Phone: End: 08-30-2024 Pulse oximetry, continuous Pulse oximetry, continuous Respiratory Care Routine Continuous until discontinued starting 08/30/2024 [facility] Work Phone: Comment on above: Continuous until discontinued starting 0 08/30/2024 End: 11-25-2019 T4 free mass conc T4, Free Routine Hypothyroidism, unspecified type 1 Occurrences starting 11/24/2018 until 11/25/2019 [facility] Comment on above: 1 Occurrences starting 11/24/2018 until 11/25/2019 End: 11-25-2019 Thyrotropin Qn TSH Routine Hypothyroidism, unspecified type 1 Occurrences starting 11/24/2018 until 11/25/2019 [facility] Comment on above: 1 Occurrences starting 11/24/2018 until 11/25/2019 End: 10-23-2018 Thyroxine (T4) free T4, Free Routine Type 2 diabetes mellitus without complication, with long-term current use of insulin (HCC) Hypothyroidism, unspecified type 1 Occurrences starting 10/22/2017 until 10/23/2018 [facility] End: 04-21-2018 Thyroxine (T4) free T4, Free Routine Diabetic autonomic neuropathy associated with type 2 diabetes mellitus (HCC) 1 Occurrences starting 04/20/2017 until 04/21/2018 [facility] Work Phone: End: 10-23-2018 TSH TSH Routine Type 2 diabetes mellitus without complication, with long-term current use of insulin (HCC) Hypothyroidism, unspecified type 1 Occurrences starting 10/22/2017 until 10/23/2018 [facility] End: 04-21-2018 TSH TSH Routine Diabetic autonomic neuropathy associated with type 2 diabetes mellitus (HCC) 1 Occurrences starting 04/20/2017 until 04/21/2018 [facility] Work Phone: End: 08-22-2020 TSH Qn TSH Lab Routine Diabetic autonomic neuropathy associated with type 2 diabetes mellitus (HCC) 1 Occurrences starting 08/22/2019 until 08/22/2020 [facility] Comment on above: 1 Occurrences starting 08/22/2019 until 08/22/2020 End: 08-30-2024 Urinalysis complete panel - Urine Urinalysis with Reflex Microscopic Lab Routine Once (Lab) for 1 Occurrences starting 08/30/2024 until 08/30/2024 [facility] Work Phone: Comment on above: Once (Lab) for 1 Occurrences starting until 08/30/2024 Vitamin D, 1,25-dihy droxy measurement [facility] Immunizations Immunization Date Immunization Notes Care Provider [facility] 05-25-2024 Influenza, Seasonal, Quadrivalent, Adjuvanted Marc Asher DO Work Phone: [facility] Work Phone: 05-05-2024 tuberculin skin test ; purified protein derivative solution, intradermal Marc Asher DO Work Phone: [facility] Work Phone: 09-16-2024 tuberculin skin test ; purified protein derivative solution, intradermal Marc Asher DO Work Phone: [facility] 01-28-2024 tetanus toxoid, redu getachew diphtheria toxoid, and acellular pertussis vaccine, adsorbed Marc Asher DO Work Phone: [facility] Work Phone: 08-20-2023 zoster vaccine recombinant Marc Asher DO Work Phone: [facility] Work Phone: 05-27-2023 RESPIRATORY SYNCYTIA L VIRUS (RSV), ELIGIBLE PTS, 0.5 ML (ABRYSVO) Marc Asher DO Work Phone: [facility] Work Phone: 05-27-2023 zoster vaccine recombinant Marc Asher DO Work Phone: [facility] Work Phone: 05-27-2023 influenza virus vacc ine, unspecified formulation Soto Tony Jr., DPM Work Phone: [facility] 12-01-2022 Pneumococcal conjuga te vaccine, 20-valent (PREVNAR 20) Marc Asher DO Work Phone: [facility] Work Phone: 08-23-2020 Covid (Pfizer) Dr. Goldie Mobley Work Phone: [facility] 06-05-2020 influenza, injectabl e, quadrivalent, preservative free Dr. Goldie Mobley MD Work Phone: [facility] 06-05-2020 influenza, seasonal, injectable Dr. Goldie Mobley Work Phone: [facility] 06-05-2020 pneumococcal polysaccharide vaccine, [address] Goldie Mobley Work Phone: [facility] 06-05-2020 pneumococcal vaccine , unspecified formulation Dr. Goldie Mobley Work Phone: [facility] Work Phone: 06-05-2020 Fluad Quad (65yr up)(PF) 60 mcg (15 mcg x 4)/0.5mL IM syringe (flu vac Dr. Goldie Mobley Work Phone: [facility] Work Phone: 09-13-2019 Covid (Pfizer) Dr. Goldie Mobley Work Phone: [facility] 05-17-2019 pneumococcal conjuga te vaccine, [address] Goldie Mobley Work Phone: [facility] 05-17-2019 pneumococcal vaccine , unspecified formulation Dr. Goldie Mobley Work Phone: [facility] Work Phone: 05-17-2019 Fluad 2018- 65yr up(PF)45 mcg(15 mcgx3)/0.5 mL intramuscular syringe (flu vac Dr. Goldie Mobley Work Phone: [facility] Work Phone: 10-13-2017 HEMOGLOBIN A1C Luis Daniel James [facility] Payers Date Payer Category Payer Self-pay [id number] 2015 Medicaid [id number] 2. [id number] 2015 Medicaid [id number] 1. [id number] 2015 Medicaid [id number] 2015 Medicaid [id number] 2. 16.840.1.640356.3.249.13 1973 Medicare [id number] 2.1 6.840.1.074316.3.249.13 1973 Medicare [id number] 1.2 .[id number] 1973 Medicare [id number]. [id number] 1973 Medicare [id number] 1944 Unknown [id number] 2.16.8 40.1.722991.3.579.2.1069 1944 Unknown [id number] 2.16.8 40.1.156589.3.579.2.1069 1944 Unknown [id number] 2.16.8 40.1.902634.3.579.2.1069 1944 Unknown [id number] 2. 840.1.181810.3.579.2.902 1944 Unknown [id number] 2. 840.1.420277.3.579.2.124 1944 Unknown [id number] 2.16. 840.1.113161.3.579.2.1244 1944 Unknown [id number] 2.16.8 40.1.904802.3.579.2.124 1944 Unknown [id number] 2.16.8 40.1.982306.3.579.2.1245 1944 Unknown [id number] 2.16.8 40.1.327979.3.579.2.124 1944 Unknown [id number] 2.16.8 40.1.195838.3.579.2.124 1944 Unknown [id number] 2.16. 840.1.202313.3.579.2.903 1944 Unknown [id number] 2.16 840.1.005017.3.579.2.903 1944 Unknown [id number] 2.16. 840.1.138995.3.579.2.1244 1944 Unknown [id number] 2.16. 840.1.728110.3.579.2.1244 1944 Unknown [id number] 2.16. 840.1.538703.3.579.2.1244 1944 Unknown [id number] 2.16. 840.1.605030.3.579.2.1244 1944 Unknown [id number] 2.16. 840.1.964546.3.579.2.1244 1944 Unknown [id number] 2.16.8 40.1.798748.3.579.2.1244 1944 Unknown [id number] 2.16.8 40.1.159099.3.579.2.1244 1944 Unknown [id number] 2.16.8 40.1.489568.3.579.2.1244 1944 Unknown [id number] 2.16.8 40.1.673525.3.579.2.1243 1944 Unknown [id number] 2.16.8 40.1.664157.3.579.2.1243 1944 Unknown [id number] 2.16.8 40.1.764624.3.579.2.1243 1944 Unknown [id number] 2.16. 840.1.893445.3.579.2.903 1944 Unknown [id number] 2.16. 840.1.614707.3.579.2.903 1944 Unknown [id number] 2.16. 840.1.339021.3.579.2.903 1944 Unknown [id number] 2.16. 840.1.512612.3.579.2.903 1944 Unknown [id number] 2.16. 840.1.802992.3.579.2.903 1944 Unknown [id number] 2.16. 840.1.315711.3.579.2.903 1944 Unknown [id number] 2.16. 840.1.194864.3.579.2.903 1944 Unknown [id number] 2.16. 840.1.335839.3.579.2.90 1944 Unknown [id number] 2.16. 840.1.089022.3.579.2.90 1944 Unknown [id number] 2.16. 840.1.363033.3.579.2.903 1944 Unknown [id number] 2.16. 840.1.770983.3.579.2.90 1944 Unknown [id number] 2.16. 840.1.869707.3.579.2.903 Medicare [id number] 2.1 6.840.1.283252.3.249.13 Unknown Unknown [id number] 2.16.8 40.1.794266.3.579.2.462 Unknown [id number] 2.16.8 40.1.735686.3.579.2.462 Unknown [id number] 2.16.8 40.1.866287.3.579.2.462 Social History Date Type Detail Facility Start: 10-22-2017 End: 03-16-2024 Tobacco smoking status NHIS Never smoker [facility] Start: 1945 Sex Assigned At Not on file [facility] Work Phone: Start: 08-22-2019 End: 11-16-2024 Alcohol intake Current non-drinker of alcohol (finding) [facility] Start: 10-28-2021 End: 12-26-2024 Exposure to SARS-CoV-2 (event) Not sure [facility] Start: 03-11-2021 End: 03-10-2022 Tobacco use and exposure Never used [facility] Start: 08-16-2014 End: 10-23-2020 Tobacco smoking status NHIS Tobacco smoking consumption unknown [facility] Start: 1945 Sex Assigned At Female [facility] Start: 09-10-2022 End: 11-16-2024 History of Social function [facility] Start: 09-10-2022 End: 11-16-2024 Tobacco use panel [facility] Start: 07-16-2023 End: 12-26-2024 Alcohol intake Ex-drinker (finding) [facility] Work Phone: National Score (1-10 0), lower number is lower risk 47 [facility] How often to you hav e a drink containing alcohol? Never [facility] In the past 12 month s, was there a time when you were not able to pay the mortgage or rent on time? No [facility] Work Phone: Start: 04-18-2024 Gender identity Identifies as female gender (finding) [facility] Work Phone: Start: 08-13-2024 End: 08-23-2024 Exposure to SARS-CoV-2 (event) Unable to assess [facility] Work Phone: (I/We) worried wheth er (my/our) food would run out before (I/we) got money to buy more. Never true [facility] Work Phone: Start: 09-19-2024 Sexual orientation Heterosexual (finding) [facility] Medical Equipment Procedure Code Equipment Code Equipment Origin al Text Equipment Identifier Dates Pen Needle, Diab etic (Comfort Ez Pen [place]) 31 gauge x 3/16 needle Start: 08-05-2021 Pen Needle, Diab etic (Comfort Ez Pen [place]) 31 gauge x 3/16 needle Start: 08-05-2021 Pen Needle, Diab etic (Comfort Ez Pen [place]) 31 gauge x 3/16 needle Start: 08-05-2021 Pen Needle, Diab etic (Comfort Ez Pen [place]) 31 gauge x 3/16 needle Start: 08-05-2021 Pen Needle, Diab etic (Comfort Ez Pen [place]) 31 gauge x 3/16 needle Start: 08-05-2021 Pen Needle, Diab etic (Comfort Ez Pen [place]) 31 gauge x 3/16 needle Start: 08-05-2021 Pen Needle, Diab etic (Comfort Ez Pen [place]) 31 gauge x 3/16 needle Start: 08-05-2021 Pen Needle, Diab etic (Comfort Ez Pen [place]) 31 gauge x 3/16 needle Start: 08-05-2021 Peg Kit, Gastro, Standard, Pull, 20 Fr, W/Xylocaine Ampule - [id number] Start: 04-22-2024 Tube, Gastrostom y, Oliva Bolus, 20 Fr - [id number] Start: 12-26-2024 Pen Needle, Diab etic (Comfort Ez Pen [place]) 31 gauge x 3/16 needle Start: 08-05-2021 Pen Needle, Diab etic (Comfort Ez Pen [place]) 31 gauge x 3/16 needle Start: 08-05-2021 Functional Status Date Assessment Result Facility 12-26-2024 [place] - 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 Clinical Notes 03-11-2021 to 02-07-2025 Telephone Encounter - Tremayne Mckeon LPN - 02/07/2025 9:37 AM EDTTelephone Encounter - Tremayne Mckeon LPN - 02/07/2025 9:37 AM EDT Note Date & Type Note Facility 02-07-2025 Telephone encounter Note Form atting of this note is different from the original. LIVIA is requesting a refill for Requested Prescriptions Pending Prescriptions Disp Refills alendronate (FOSAMAX) 70 MG tablet 12 tablet 3 Si (one) tablet (70 mg total) by Per G Tube route every 7 days GIVE 1 TABLET BY PEG EVERY WEEK *30 MIN BEFORE 1ST FOOD/GAMAL/MED; AVOID LYING DOWN X30 MIN AFTER . Last refill: unknown, Historical Provider previous PCP - Shanda Huizar DO Last appt: 12/27/2024 Upcoming appt (when is it due or is it scheduled): 03/21/2025 Follow up: Refill pending for review without additional follow up based on information above. [facility] 02-07-2025 Miscellaneous Notes Formattin g of this note is different from the original. LIVIA is requesting a refill for Requested Prescriptions Pending Prescriptions Disp Refills alendronate (FOSAMAX) 70 MG tablet 12 tablet 3 Si (one) tablet (70 mg total) by Per G Tube route every 7 days GIVE 1 TABLET BY PEG EVERY WEEK *30 MIN BEFORE 1ST FOOD/GAMAL/MED; AVOID LYING DOWN X30 MIN AFTER . Last refill: unknown, Historical Provider previous PCP - Shanda Huizar DO Last appt: 12/27/2024 Upcoming appt (when is it due or is it scheduled): 03/21/2025 Follow up: Refill pending for review without additional follow up based on information above. documented in this encounter [facility] 01-31-2025 Evaluation note Diagnosis Onset Date Resolution Epilepsy acute January 31 10:33am Vitamin d deficiency acute January 31, 2025 10:33am [facility] Work Phone: 1(823) 589-203606-11-2025 NoteHPI Chief Complaint Patient presents with Nail Care diab nail care/A1C 6 on 06/27/24. Patient is a pleasant 79-year-old female who comes in today with her roustabout for her nails cut. Her nails cut at home recently from a doctor however he has since retired. Geriatric care is managed by primary including Dr. Mobley. Past Medical History: Diagnosis Date Cerebral palsy (HCC) Hypothyroidism Osteoporosis Seizure disorder (HCC) 2017 Type 2 diabetes mellitus (HCC) Past Surgical History: Procedure Laterality Date CT COLONOSCOPY 10/05/2023 CT COLONOSCOPY Social History Socioeconomic History Marital status: Single Tobacco Use Smoking status: Never Smokeless tobacco: Never Substance and Sexual Activity Alcohol use: No Drug use: No Social Drivers of Health Financial Resource Strain: Low Risk (11/16/2024) Overall Financial Resource Strain (CARDIA) Difficulty of Paying Living Expenses: Not hard at all Food Insecurity: No Food Insecurity (11/16/2024) Hunger Vital Sign Worried About Running Out of Food in the Last Year: Never true Ran Out of Food in the Last Year: Never true Transportation Needs: No Transportation Needs (11/16/2024) PRAPARE - Transportation Lack of Transportation (Medical): No Lack of Transportation (Non-Medical): No Social Connections: Unknown (11/16/2024) Social Connection and Isolation Panel [NHANES] Frequency of Social Gatherings with Friends and Family: Three times a week Housing Stability: Low Risk (08/30/2024) Received from [facility] Housing Stability Vital Sign Unable to Pay for Housing in the Last Year: No Number of Times Moved in the Last Year: 0 Homeless in the Last Year: No Review of Systems -Patient is essentially noncommunicative and therefore denied Physical Exam -Vascular: DP pulses are palpable 2-4. PT pulses are essentially nonpalpable. CFT is delayed with mild foot and ankle edema. Derm: Skin is shiny atrophic and dysvascular. No open ulcers no erythema no rashes noted nodules. Neuro: Light touch is blunted Babinski's is normal. Musculoskeletal: Muscle strength is 2 out of 5 with okay tone. Ankle subtalar midtarsal is full and pain-free. Nails left [id number] and right foot [id number] are elongated and dystrophic. 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 -She does qualify for high risk nail care. Procedure: After timeout consent was performed, sharply debrided and debulked in height and length 10 onychodystrophy nails with a sharp cranial nippers consistent with a q8 modifier. Follow-up in 3 months or 6 months for foot nail care. AUTHENTICATED BY SOTO TONY JR., ON 01/18/2025 11:04:07[facility]06-11-2025 History of Present illness Narrative* Soto Tony Jr., DP - 01/18/2025 11:03 AM EDT HPI Chief Complaint Patient presents with Nail Care diab nail care/A1C 6 on 06/27/24. Patient is a pleasant 79-year-old female who comes in today with her roustabout for her nails cut. Her nails cut at home recently from a doctor however he has since retired. Geriatric care is managed by primary including Dr. Mobley. Past Medical History: Diagnosis Date Cerebral palsy (HCC) Hypothyroidism Osteoporosis Seizure disorder (HCC) 2017 Type 2 diabetes mellitus (HCC) Past Surgical History: Procedure Laterality Date CT COLONOSCOPY 10/05/2023 CT COLONOSCOPY Social History Socioeconomic History Marital status: Single Tobacco Use Smoking status: Never Smokeless tobacco: Never Substance and Sexual Activity Alcohol use: No Drug use: No Social Drivers of Health Financial Resource Strain: Low Risk (11/16/2024) Overall Financial Resource Strain (CARDIA) Difficulty of Paying Living Expenses: Not hard at all Food Insecurity: No Food Insecurity (11/16/2024) Hunger Vital Sign Worried About Running Out of Food in the Last Year: Never true Ran Out of Food in the Last Year: Never true Transportation Needs: No Transportation Needs (11/16/2024) PRAPARE - Transportation Lack of Transportation (Medical): No Lack of Transportation (Non-Medical): No Social Connections: Unknown (11/16/2024) Social Connection and Isolation Panel [NHANES] Frequency of Social Gatherings with Friends and Family: Three times a week Housing Stability: Low Risk (08/30/2024) Received from [facility] Housing Stability Vital Sign Unable to Pay for Housing in the Last Year: No Number of Times Moved in the Last Year: 0 Homeless in the Last Year: No Review of Systems -Patient is essentially noncommunicative and therefore denied Physical Exam -Vascular: DP pulses are palpable 2-4. PT pulses are essentially nonpalpable. CFT is delayed with mild foot and ankle edema. Derm: Skin is shiny atrophic and dysvascular. No open ulcers no erythema no rashes noted nodules. Neuro: Light touch is blunted Babinski's is normal. Musculoskeletal: Muscle strength is 2 out of 5 with okay tone. Ankle subtalar midtarsal is full andpain-free. Nails left [id number] and right foot 36389 are elongated and dystrophic. 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 -She does qualify for high risk nail care. Procedure: After timeout consent was performed, sharply debrided and debulked in height and length 10 onychodystrophy nails with a sharp cranial nippers consistent with a q8 modifier. Follow-up in 3 months or 6 months for foot nail care. documented in this [id number] Evaluation + Plan note* Assessment & Plan Note - Tremayne Andrade DO - 12/27/2024 12:24 PM EDT Associated Problem(s): Primary hypertension BP goal <150/90. On losartan 100 mg and amlodipine 5 mg daily. BP continues to run 150s to 160/80s and [facility] staff reports this is usual for her. - Continue losartan to 100 mg daily. We may consider reducing this back to 50 mg in the future as it made no difference going from 50 mg to 100. - Increase amlodipine to 10 mg daily - Continue checking daily BP, keep a log - Parameters given to call office if SBP less than 100 or greater than 180 - Follow-up in 3 months or sooner if needed [id number] Miscellaneous Notes* Assessment & Plan Note - Tremayne Andrade DO - 12/27/2024 12:24 PM EDTAssociated Problem(s): Primary hypertension BP goal <150/90. On losartan 100 mg and amlodipine 5 mg daily. BP continues to run 150s to 160/80s and [facility] staff reports this is usual for her. - Continue losartan to 100 mg daily. We may consider reducing this back to 50 mg in the future as it made no difference going from 50 mg to 100. - Increase amlodipine to 10 mg daily - Continue checking daily BP, keep a log - Parameters given to call office if SBP less than 100 or greater than 180 - Follow-up in 3 months or sooner if needed documented in this [id number] History of Present illness Narrative* Tremayne Andrade DO - 12/27/2024 10:40 AM EDT Assessment/Plan: Primary hypertension BP goal <150/90. On losartan 100 mg and amlodipine 5 mg daily. BP continues to run 150s to 160/80s and [facility] staff reports this is usual for her. - Continue losartan to 100 mg daily. We may consider reducing this back to 50 mg in the future as it made no difference going from 50 mg to 100. - Increase amlodipine to 10 mg daily - Continue checking daily BP, keep a log - Parameters given to call office if SBP less than 100 or greater than 180 - Follow-up in 3 months or sooner if needed Subjective: Mik Shelton is a 79 y.o. female Chief Complaint Patient presents with Follow-up Patient presents for HTN follow up. Last visit, added amlodipine 5 mg to her current losartan 100 mg. Increasing losartan from 50 mg to 100 mg did not effect her BP much. Home BP log reviewed, most readings are still elevated 150-160 systolic. The following portions of the patient's history were reviewed and updated as appropriate: allergies, current medications, past family history, past medical history, past social history, past surgicalhistory and problem list. Review of Systems Objective: PACU Vitals 12/27/24 1037 BP: (!) 143/76 Pulse: Resp: SpO2: PainSc: Physical Exam Constitutional: General: She is not in acute distress. Appearance: Normal appearance. She is not ill-appearing, toxic-appearing or diaphoretic. HENT: Head: Normocephalic and atraumatic. Cardiovascular: Rate and Rhythm: Normal rate and regular rhythm. Heart sounds: No murmur heard. No gallop. Musculoskeletal: Comments: Bilateral hands contracted Skin: General: Skin is warm and dry. Coloration: Skin is not jaundiced or pale. Neurological: Mental Status: She is alert. Psychiatric: Speech: She is noncommunicative. Comments: nonverbal For any new medications prescribed today, patient was educated about indications for the medication, how to take the medication and potential side effects of the medications. My ongoing relationship with Mik Shelton requires continued responsibility and cognitive effort of being the focal point for all services related to chronic condition(s). Tremayne Andrade DO documented in this [id number] NoteAssessment/Plan: Primary hypertension BP goal <150/90. On losartan 100 mg and amlodipine 5 mg daily. BP continues to run 150s to 160/80s and [facility] staff reports this is usual for her. - Continue losartan to 100 mg daily. We may consider reducing this back to 50 mg in the future as it made no difference going from 50 mg to 100. - Increase amlodipine to 10 mg daily - Continue checking daily BP, keep a log - Parameters given to call office if SBP less than 100 or greater than 180 - Follow-up in 3 months or sooner if needed Subjective: Mik Shelton is a 79 y.o. female Chief Complaint Patient presents with Follow-up Patient presents for HTN follow up. Last visit, added amlodipine 5 mg to her current losartan 100 mg. Increasing losartan from 50 mg to 100 mg did not effect her BP much. Home BP log reviewed, most readings are still elevated 150-160 systolic. The following portions of the patient's history were reviewed and updated as appropriate: allergies, current medications, past family history, past medical history, past social history, past surgical history and problem list. Review of Systems Objective: PACU Vitals 12/27/24 1037 BP: (!) 143/76 Pulse: Resp: SpO2: PainSc: Physical Exam Constitutional: General: She is not in acute distress. Appearance: Normal appearance. She is not ill-appearing, toxic-appearing or diaphoretic. HENT: Head: Normocephalic and atraumatic. Cardiovascular: Rate and Rhythm: Normal rate and regular rhythm. Heart sounds: No murmur heard. No gallop. Musculoskeletal: Comments: Bilateral hands contracted Skin: General: Skin is warm and dry. Coloration: Skin is not jaundiced or pale. Neurological: Mental Status: She is alert. Psychiatric: Speech: She is noncommunicative. Comments: nonverbal For any new medications prescribed today, patient was educated about indications for the medication, how to take the medication and potential side effects of the medications. My ongoing relationship with Mik Shelton requires continued responsibility and cognitive effort of being the focal point for all services related to chronic condition(s). Tremayne Andrade DO AUTHENTICATED BY TREMAYNE ANDRADE, ON 12/27/2024 12:25:33[facility] 12-26-2024 Hospital Discharge instructions* Discharge Instructions* Nicci Kennedy RN - 12/26/2024 8:03 AM EDT Patient Instructions after an endoscopy or colonoscopy The anesthetics, sedatives or narcotics which were given to you today will be acting in your body for the next 24 hours, so you might feel a little sleepy or groggy. This feeling should slowly wear off. Carefully read and follow the instructions. You received sedation today: - Do not drive or operate any machinery or power tools of any kind. - No alcoholic beverages today, not even beer or wine. - Do not make any important decisions or sign any legal documents. - No over the counter medications that contain alcohol or that may cause drowsiness. - Do not make any important decisions or sign any legal documents. While it is common to experience mild to moderate abdominal distention, gas, or belching after yourprocedure, if any of these symptoms occur following discharge from the GI Lab or within one week ofhaving your procedure, call the [facility] to be advised whether a visit to your nearest Urgent Care or Emergency Department is indicated. Take this paper with you if you go. - If you develop an allergic reaction to the medications that were given during your procedure suchas difficulty breathing, rash, hives, severe nausea, vomiting or lightheadedness.- If you experience chest pain, shortness of breath, severe abdominal pain, fevers and chills. -If you develop signs and symptoms of bleeding such as blood in your spit, if your stools turn black, tarry, or bloody - If you have not urinated within 8 hours following your procedure.- If your IV site becomes painful, red, inflamed, or looks infected. documented in this [facility] Work Phone: 1(884) 269-104905-19-2025 Attending History and physical note* Clara Jones DO - 12/26/2024 7:00 AM EDT H&P reviewed. The patient was examined and there are no changes to the H&P. Presents for PEG tube revision as PEG tube is nonfunctioning. Consent obtained through her [employer] advisor. Source Note - Clara Jones DO - 11/28/2024 11:15 AM EDT Subjective Patient ID: Mik Shelton is a 79 y.o. female who presents for Follow-up (Peg tube check. Original placed on 04/22/2024 and had not been replaced since. Patient does not have any issues with peg receives everything through PEG but offered a pleasure tray at lunch time with pureed foods. ). 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 Had PEG tube placed for inability to maintain weight and failure to thrive in April 2024. Tube now was not functioning. Often has obstructions. Is due for change. Site appears free of any infection. Discussed PEG tube change under anesthesia. Staff and patient agreeable. Will need to obtain consent from [employer] advised her Review of Systems Constitutional: Negative. HENT: Negative. Eyes: Negative. Respiratory: Negative. Cardiovascular: Negative. Endocrine: Negative. Genitourinary: Negative. Neurological: Negative. Hematological: Negative. Objective Physical Exam Vitals and nursing note reviewed. Constitutional: Appearance: Normal appearance. HENT: Head: Normocephalic. Mouth/Throat: Mouth: Mucous membranes are moist. Pharynx: Oropharynx is clear. Eyes: Conjunctiva/sclera: Conjunctivae normal. Pupils: Pupils are equal, round, and reactive to light. Cardiovascular: Rate and Rhythm: Normal rate and regular rhythm. Heart sounds: Normal heart sounds. Pulmonary: Effort: Pulmonary effort is normal. Breath sounds: Normal breath sounds. Abdominal: General: Abdomen is flat. Bowel sounds are normal. Palpations: Abdomen is soft. Musculoskeletal: General: Normal range of motion. Cervical back: Normal range of motion and neck supple. Skin: General: Skin is warm and dry. Neurological: General: No focal deficit present. Mental Status: She is alert and oriented to person, place, and time. Psychiatric: Behavior: Behavior normal. Assessment/Plan Diagnoses and all orders for this visit: PEG tube malfunction (Multi) S/P percutaneous endoscopic gastrostomy (PEG) tube placement (Multi) - Esophagogastroduodenoscopy (EGD); Future Seizures (Multi) - Esophagogastroduodenoscopy (EGD); Future Recommend PEG tube change under anesthesia Clara Jones DO 11/28/24 12:06 PM [facility] Work Phone: [phone] 512-256905-19-2025 Attending History and physical note* Clara Jones DO - 12/26/2024 7:00 AM EDT H&P reviewed. The patient was examined and there are no changes to the H&P. Verbal consent from [employer] advocate Lakesha Hunt Source Note - Clara Jones DO - 11/28/2024 11:15 AM EDT Subjective Patient ID: Mik Shelton is a 79 y.o. female who presents for Follow-up (Peg tube check. Original placed on 04/22/2024 and had not been replaced since. Patient does not have any issues with peg receives everything through PEG but offered a pleasure tray at lunch time with pureed foods. ). 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 Had PEG tube placed for inability to maintain weight and failure to thrive in April 2024. Tube now was not functioning. Often has obstructions. Is due for change. Site appears free of any infection. Discussed PEG tube change under anesthesia. Staff and patient agreeable. Will need to obtain consent from [employer] advised her Review of Systems Constitutional: Negative. HENT: Negative. Eyes: Negative. Respiratory: Negative. Cardiovascular: Negative. Endocrine: Negative. Genitourinary: Negative. Neurological: Negative. Hematological: Negative. Objective Physical Exam Vitals and nursing note reviewed. Constitutional: Appearance: Normal appearance. HENT: Head: Normocephalic. Mouth/Throat: Mouth: Mucous membranes are moist. Pharynx: Oropharynx is clear. Eyes: Conjunctiva/sclera: Conjunctivae normal. Pupils: Pupils are equal, round, and reactive to light. Cardiovascular: Rate and Rhythm: Normal rate and regular rhythm. Heart sounds: Normal heart sounds. Pulmonary: Effort: Pulmonary effort is normal. Breath sounds: Normal breath sounds. Abdominal: General: Abdomen is flat. Bowel sounds are normal. Palpations: Abdomen is soft. Musculoskeletal: General: Normal range of motion. Cervical back: Normal range of motion and neck supple. Skin: General: Skin is warm and dry. Neurological: General: No focal deficit present. Mental Status: She is alert and oriented to person, place, and time. Psychiatric: Behavior: Behavior normal. Assessment/Plan Diagnoses and all orders for this visit: PEG tube malfunction (Multi) S/P percutaneous endoscopic gastrostomy (PEG) tube placement (Multi) - Esophagogastroduodenoscopy (EGD); Future Seizures (Multi) - Esophagogastroduodenoscopy (EGD); Future Recommend PEG tube change under anesthesia Clara Jones DO 11/28/24 12:06 PM [facility] Work Phone: [phone] 873-904805-19-2025 History and physical note* Clara Jones DO - 12/26/2024 7:00 AM EDT H&P reviewed. The patient was examined and there are no changes to the H&P. Presents for PEG tube revision as PEG tube is nonfunctioning. Consent obtained through her [employer] advisor. Source Note - Clara Jones DO - 11/28/2024 11:15 AM EDT Subjective Patient ID: Mik Shelton is a 79 y.o. female who presents for Follow-up (Peg tube check. Original placed on 04/22/2024 and had not been replaced since. Patient does not have any issues with peg receives everything through PEG but offered a pleasure tray at lunch time with pureed foods. ). 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 Had PEG tube placed for inability to maintain weight and failure to thrive in April 2024. Tube now was not functioning. Often has obstructions. Is due for change. Site appears free of any infection. Discussed PEG tube change under anesthesia. Staff and patient agreeable. Will need to obtain consent from [employer] advised her Review of Systems Constitutional: Negative. HENT: Negative. Eyes: Negative. Respiratory: Negative. Cardiovascular: Negative. Endocrine: Negative. Genitourinary: Negative. Neurological: Negative. Hematological: Negative. Objective Physical Exam Vitals and nursing note reviewed. Constitutional: Appearance: Normal appearance. HENT: Head: Normocephalic. Mouth/Throat: Mouth: Mucous membranes are moist. Pharynx: Oropharynx is clear. Eyes: Conjunctiva/sclera: Conjunctivae normal. Pupils: Pupils are equal, round, and reactive to light. Cardiovascular: Rate and Rhythm: Normal rate and regular rhythm. Heart sounds: Normal heart sounds. Pulmonary: Effort: Pulmonary effort is normal. Breath sounds: Normal breath sounds. Abdominal: General: Abdomen is flat. Bowel sounds are normal. Palpations: Abdomen is soft. Musculoskeletal: General: Normal range of motion. Cervical back: Normal range of motion and neck supple. Skin: General: Skin is warm and dry. Neurological: General: No focal deficit present. Mental Status: She is alert and oriented to person, place, and time. Psychiatric: Behavior: Behavior normal. Assessment/Plan Diagnoses and all orders for this visit: PEG tube malfunction (Multi) S/P percutaneous endoscopic gastrostomy (PEG) tube placement (Multi) - Esophagogastroduodenoscopy (EGD); Future Seizures (Multi) - Esophagogastroduodenoscopy (EGD); Future Recommend PEG tube change under anesthesia Clara Jones DO 11/28/24 12:06 PM * Clara Jones DO - 12/26/2024 7:00 AM EDT H&P reviewed. The patient was examined and there are no changes to the H&P. Verbal consent from [employer] advocate Lakesha Hunt Source Note - Clara Jones DO - 11/28/2024 11:15 AM EDT Subjective Patient ID: Mik Shelton is a 79 y.o. female who presents for Follow-up (Peg tube check. Original placed on 04/22/2024 and had not been replaced since. Patient does not have any issues with peg receives everything through PEG but offered a pleasure tray at lunch time with pureed foods. ). 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 Had PEG tube placed for inability to maintain weight and failure to thrive in April 2024. Tube now was not functioning. Often has obstructions. Is due for change. Site appears free of any infection. Discussed PEG tube change under anesthesia. Staff and patient agreeable. Will need to obtain consent from [employer] advised her Review of Systems Constitutional: Negative. HENT: Negative. Eyes: Negative. Respiratory: Negative. Cardiovascular: Negative. Endocrine: Negative. Genitourinary: Negative. Neurological: Negative. Hematological: Negative. Objective Physical Exam Vitals and nursing note reviewed. Constitutional: Appearance: Normal appearance. HENT: Head: Normocephalic. Mouth/Throat: Mouth: Mucous membranes are moist. Pharynx: Oropharynx is clear. Eyes: Conjunctiva/sclera: Conjunctivae normal. Pupils: Pupils are equal, round, and reactive to light. Cardiovascular: Rate and Rhythm: Normal rate and regular rhythm. Heart sounds: Normal heart sounds. Pulmonary: Effort: Pulmonary effort is normal. Breath sounds: Normal breath sounds. Abdominal: General: Abdomen is flat. Bowel sounds are normal. Palpations: Abdomen is soft. Musculoskeletal: General: Normal range of motion. Cervical back: Normal range of motion and neck supple. Skin: General: Skin is warm and dry. Neurological: General: No focal deficit present. Mental Status: She is alert and oriented to person, place, and time. Psychiatric: Behavior: Behavior normal. Assessment/Plan Diagnoses and all orders for this visit: PEG tube malfunction (Multi) S/P percutaneous endoscopic gastrostomy (PEG) tube placement (Multi) - Esophagogastroduodenoscopy (EGD); Future Seizures (Multi) - Esophagogastroduodenoscopy (EGD); Future Recommend PEG tube change under anesthesia Clara Jones DO 11/28/24 12:06 PM [facility] Phone: 1([phone]) 375-493005-06-2025 History of Present illness Narrative* Judy Schwartz RN - 12/13/2024 4:02 PM EDT MEDICATION RECONCILIATION COMPLETED USING REM MED SHEETS. MED SHEETS TITLED ACTIVE ORDERS OF 12/02/2024. MEDICATIONS NOT LISTED ON REM LIST MARKED FOR REVIEW. documented in this [id number] History of Present illness Narrative* Liane Brown MA - 12/12/2024 8:53 AM EDT Spoke to Sa[facility], review results. Faxed results to [phone]. * Tremayne Andrade DO - 12/11/2024 6:20 PM EDT Please call and let Saumya know patient's TB screening is negative. documented in this [id number] NotePlease call and let Saumya know patient's TB screening is negative. AUTHENTICATED BY TREMAYNE ANDRADE ON 12/11/2024 18:20:24[facility] 11-28-2024 History of Present illness Narrative* Clara Jones DO - 11/28/2024 11:15 AM EDT Subjective Patient ID: Mik Shelton is a 79 y.o. female who presents for Follow-up (Peg tube check. Original placed on 04/22/2024 and had not been replaced since. Patient does not have any issues with peg receives everything through PEG but offered a pleasure tray at lunch time with pureed foods. ). 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 Had PEG tube placed for inability to maintain weight and failure to thrive in April 2024. Tube now was not functioning. Often has obstructions. Is due for change. Site appears free of any infection. Discussed PEG tube change under anesthesia. Staff and patient agreeable. Will need to obtain consent from [employer] advised her Review of Systems Constitutional: Negative. HENT: Negative. Eyes: Negative. Respiratory: Negative. Cardiovascular: Negative. Endocrine: Negative. Genitourinary: Negative. Neurological: Negative. Hematological: Negative. Objective Physical Exam Vitals and nursing note reviewed. Constitutional: Appearance: Normal appearance. HENT: Head: Normocephalic. Mouth/Throat: Mouth: Mucous membranes are moist. Pharynx: Oropharynx is clear. Eyes: Conjunctiva/sclera: Conjunctivae normal. Pupils: Pupils are equal, round, and reactive to light. Cardiovascular: Rate and Rhythm: Normal rate and regular rhythm. Heart sounds: Normal heart sounds. Pulmonary: Effort: Pulmonary effort is normal. Breath sounds: Normal breath sounds. Abdominal: General: Abdomen is flat. Bowel sounds are normal. Palpations: Abdomen is soft. Musculoskeletal: General: Normal range of motion. Cervical back: Normal range of motion and neck supple. Skin: General: Skin is warm and dry. Neurological: General: No focal deficit present. Mental Status: She is alert and oriented to person, place, and time. Psychiatric: Behavior: Behavior normal. Assessment/Plan Diagnoses and all orders for this visit: PEG tube malfunction (Multi) S/P percutaneous endoscopic gastrostomy (PEG) tube placement (Multi) - Esophagogastroduodenoscopy (EGD); Future Seizures (Multi) - Esophagogastroduodenoscopy (EGD); Future Recommend PEG tube change under anesthesia Clara Jones DO 11/28/24 12:06 PM [facility] Work Phone: 1(502) 323-678404-16-2025 Instructions* Patient Instructions* Boni Salter II, OD - 11/23/2024 9:55 AM EDT Assessment and Plan E11.9 Type 2 diabetes mellitus without retinopathy (HCC) (primary encounter diagnosis) Comment: Examination shows no ocular diabetic complications today. Continue yearly dilated eye examinations. 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 Right cataract could be referred for surgery consult whenever desired or wait until left cataract worsens too. Will let caregivers decide. Otherwise monitor yearly. H50.111 Exotropia of right eye Comment: Longstanding and stable. H52.13 Myopia of both eyes H52.4 Presbyopia Comment: High myopia both eyes stable. Glasses for best distance vision. I have confirmed and edited as necessary the relevant HPI, ophthalmic history, ROS, and the neuro exam findings as obtained by others. I have seen and examined Mik Shelton. I have discussed the case and the management of this patient's care with the Resident/Fellow, if applicable. I also have reviewed and agree with the assessment and plan as stated above and agree withall of its relevant components. [facility] this [facility] NoteHNO ID: [id number] Author: BONI SALTER II, SRAVANTHI Service: ? Author Type: MATTRESS FINISHER Type: Progress Notes Filed: 11/23/2024 09:55 Note Text: Assessment and Plan E11.9 Type 2 diabetes mellitus without retinopathy (HCC) (primary encounter diagnosis) Comment: Examination shows no ocular diabetic complications today. Continue yearly dilated eye examinations. 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 Right cataract could be referred for surgery consult whenever desired or wait until left cataract worsens too. Will let caregivers decide. Otherwise monitor yearly. H50.111 Exotropia of right eye Comment: Longstanding and stable. H52.13 Myopia of both eyes H52.4 Presbyopia Comment: High myopia both eyes stable. Glasses for best distance vision. I have confirmed and edited as necessary the relevant HPI, ophthalmic history, ROS, and the neuro exam findings as obtained by others. I have seen and examined Mik Shelton. I have discussed the case and the management of this patient's care with the Resident/Fellow, if applicable. I also have reviewed and agree with the assessment and plan as stated above and agree with all of its relevant components.[facility]04-16-2025 History of Present illness Narrative* Boni Salter II, OD - 11/23/2024 9:52 AM EDT Assessment and Plan E11.9 Type 2 diabetes mellitus without retinopathy (HCC) (primary encounter diagnosis) Comment: Examination shows no ocular diabetic complications today. Continue yearly dilated eye examinations. 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 Right cataract could be referred for surgery consult whenever desired or wait until left cataract worsens too. Will let caregivers decide. Otherwise monitor yearly. H50.111 Exotropia of right eye Comment: Longstanding and stable. H52.13 Myopia of both eyes H52.4 Presbyopia Comment: High myopia both eyes stable. Glasses for best distance vision. I have confirmed and edited as necessary the relevant HPI, ophthalmic history, ROS, and the neuro exam findings as obtained by others. I have seen and examined Mik Shelton. I have discussed the case and the management of this patient's care with the Resident/Fellow, if applicable. I also have reviewed and agree with the assessment and plan as stated above and agree withall of its relevant components. documented in this [facility]Children[facility] Evaluation + Plan note* Assessment & Plan Note - Tremayne Andrade, - 11/16/2024 12:40 PM EDT Associated Problem(s): Primary hypertension BP goal <150/90. On losartan 100 mg daily. BP continues to run 150s to 160/80s and [facility] staff reports this is usual for her. - Continue losartan to 100 mg daily. We may consider reducing this back to 50 mg in the future as it made no difference going from 50 mg to 100. - Start amlodipine 5 mg daily - Continue checking daily BP, keep a log - Parameters given to call office if SBP less than 100 or greater than 180 - Follow-up in 1 month [id number] Miscellaneous Notes* Assessment & Plan Note - Tremayne Andrade DO - 11/16/2024 12:40 PM EDTAssociated Problem(s): Primary hypertension BP goal <150/90. On losartan 100 mg daily. BP continues to run 150s to 160/80s and [facility] staff reports this is usual for her. - Continue losartan to 100 mg daily. We may consider reducing this back to 50 mg in the future as it made no difference going from 50 mg to 100. - Start amlodipine 5 mg daily - Continue checking daily BP, keep a log - Parameters given to call office if SBP less than 100 or greater than 180 - Follow-up in 1 month documented in this [id number] Telephone encounter Note* Telephone Encounter - Marce Barroso LPN - 11/16/2024 12:20 PM EDT LAST OV 11/16/24. NEXT OV 12/27/24. [id number] Miscellaneous Notes* Telephone Encounter - Marce Barroso LPN - 11/16/2024 12:20 PM EDT LAST OV 11/16/24. NEXT OV 12/27/24. documented in this [id number] History of Present illness Narrative* Tremayne Andrade, DO - 11/16/2024 10:40 AM EDT Assessment/Plan: Primary hypertension BP goal <150/90. On losartan 100 mg daily. BP continues to run 150s to 160/80s and [facility] staff reports this is usual for her. - Continue losartan to 100 mg daily. We may consider reducing this back to 50 mg in the future as it made no difference going from 50 mg to 100. - Start amlodipine 5 mg daily - Continue checking daily BP, keep a log - Parameters given to call office if SBP less than 100 or greater than 180 - Follow-up in 1 month Subjective: Mik Shelton is a 79 y.o. female Chief Complaint Patient presents with Follow-up 4 week f/u Patient presents for follow-up hypertension. She is accompanied by [facility] [place] [facility]. HTN Last month increase losartan to 100 mg daily. BP today is 153/64 which is similar to her readings on losartan 50 mg. Staff reports home blood pressures have been similar to this. Hyponatremia Intermittent hyponatremia since G-tube placement 04/2024. Following with nephrology, Dr. Hernandez, and cane packer. Currently taking salt tabs 3 times daily. She has upcoming appointment. The following portions of the patient's history were reviewed and updated as appropriate: allergies, current medications, past family history, past medical history, past social history, past surgicalhistory and problem list. Review of Systems Objective: PACU Vitals 11/16/24 1035 BP: (!) 153/64 Pulse: 85 Resp: 16 Temp: 98.1 F (36.7 C) SpO2: 92% Physical Exam Constitutional: General: She is not in acute distress. Appearance: Normal appearance. She is not ill-appearing, toxic-appearing or diaphoretic. HENT: Head: Normocephalic and atraumatic. Cardiovascular: Rate and Rhythm: Normal rate and regular rhythm. Heart sounds: No murmur heard. No gallop. Pulmonary: Effort: No respiratory distress. Skin: General: Skin is warm and dry. Coloration: Skin is not jaundiced or pale. Neurological: Mental Status: Mental status is at baseline. Psychiatric: Comments: Nonverbal at baseline For any new medications prescribed today, patient was educated about indications for the medication, how to take the medication and potential side effects of the medications. Tremayne Andrade DO documented in this [id number] NoteAssessment/Plan: Primary hypertension BP goal <150/90. On losartan 100 mg daily. BP continues to run 150s to 160/80s and [facility] staff reports this is usual for her. - Continue losartan to 100 mg daily. We may consider reducing this back to 50 mg in the future as it made no difference going from 50 mg to 100. - Start amlodipine 5 mg daily - Continue checking daily BP, keep a log - Parameters given to call office if SBP less than 100 or greater than 180 - Follow-up in 1 month Subjective: Mik Shelton is a 79 y.o. female Chief Complaint Patient presents with Follow-up 4 week f/u Patient presents for follow-up hypertension. She is accompanied by [facility] [place] [facility]. HTN Last month increase losartan to 100 mg daily. BP today is 153/64 which is similar to her readings on losartan 50 mg. Staff reports home blood pressures have been similar to this. Hyponatremia Intermittent hyponatremia since G-tube placement 04/2024. Following with nephrology, Dr. Hernandez, and cane packer. Currently taking salt tabs 3 times daily. She has upcoming appointment. The following portions of the patient's history were reviewed and updated as appropriate: allergies, current medications, past family history, past medical history, past social history, past surgical history and problem list. Review of Systems Objective: PACU Vitals 11/16/24 1035 BP: (!) 153/64 Pulse: 85 Resp: 16 Temp: 98.1 degrees F (36.7 degrees C) SpO2: 92% Physical Exam Constitutional: General: She is not in acute distress. Appearance: Normal appearance. She is not ill-appearing, toxic-appearing or diaphoretic. HENT: Head: Normocephalic and atraumatic. Cardiovascular: Rate and Rhythm: Normal rate and regular rhythm. Heart sounds: No murmur heard. No gallop. Pulmonary: Effort: No respiratory distress. Skin: General: Skin is warm and dry. Coloration: Skin is not jaundiced or pale. Neurological: Mental Status: Mental status is at baseline. Psychiatric: Comments: Nonverbal at baseline For any new medications prescribed today, patient was educated about indications for the medication, how to take the medication and potential side effects of the medications. Tremayne Andrade DO AUTHENTICATED BY TREMAYNE ANDRADE, ON 11/16/2024 12:41:03[facility] 11-03-2024 History of Present illness Narrative* Dhaval Shelton, RD - 11/03/2024 12:46 PM EDT Patient Name: Mik Shelton Patient : 1945 Primary Care Provider: Tremayne Andrade DO Referred By: Tremayne Andrade DO Referral Diagnosis: Diabetes Type 2, hyponatremia Start Time: 1200 End Time: 1230 Nutrition Diagnosis: Pt with altered nutrition related lab values related to hyponatremia with start of tube feedings as evidenced by lab values. Goal Progress: I will increase water flush at feedings to 150ml + water flush of 40 ml for a total of 190ml. I will continue medication water flushes at 40ml between feedings - met Nutrition Goals: No changes to tube feeding at this time, no changes to water flushes. Dietitian Pan Tracey to follow with pt for tube feeding monitoring/wt trends Follow Up: Contact information provided for additional questions Assessment: Pt caregivers made adjustment in water flushes which provide pt with 150ml water flush with each feeding and 40ml flush with meds. Total fluid intake is 1480ml/day with tube feeding formula and water flushes. This provides 104% fluid needs/day. Pt with minimal (0-120ml) oral fluid intake and this is inconsistent. Pt seen nephrology last week with recommendations to increase sodium tablets to 2g BID. 11/01/24 blood work show sodium at 135. It is recommended to continue current tube feeding and water flush. Pt wt taken today, which showed a 4# wt gain in one month. Recommend continueto monitor trends. Continue to monitor hydration status and recommend further decreasing water flush by 50ml for a total of 140ml with feedings and meds 4 times daily if hyponatremia does not resolve. Current TF regimen: Jevity 1.5 with 4 -8oz bolus daily Calories: 1420kcal Protein: 60g Sodium: 1260mg Free water: 720ml Total water intake with water flush: 1482ml/day (0-120ml oral intake not included) Reason for Visit: follow up Support Person Present: caregivers Height: 61 Current Weight: 128.5# BMI: 24 BMI Classification: Normal (18.5-24.9) Weight History: 4# wt gain Wt Readings from Last 10 Encounters: 10/17/24 56.6 kg (124 lb 12.8 oz) 09/19/24 56.5 kg (124 lb 8 oz) 03/28/24 48.8 kg (107 lb 8 oz) 03/18/24 48.5 kg (107 lb) 03/10/22 61.7 kg (136 lb) 11/24/18 57.2 kg (126 lb) 04/22/18 59 kg (130 lb) 10/22/17 56.7 kg (125 lb) 04/20/17 58.7 kg (129 lb 8 oz) 04/18/16 64.9 kg (143 lb) Diet History/Recall: pt provided oral intake at lunch- pureed foods with honey thickened liquids- may drink 1/2 cup or less of fluids and tends to have preference to sweets if she does eat. PMHx: Past Medical History: Diagnosis Date Cerebral palsy (HCC) Hypothyroidism Osteoporosis Seizure disorder (HCC) 2017 Type 2 diabetes mellitus (HCC) Current/Pertinent Medications: Current Medications[1] Lab Values: Lab Results Component Value Date HGBA1C 6.3 02/26/2022 HGBA1C 6.0 02/26/2021 HGBA1C 6.1 02/22/2020 HGBA1C 6.2 08/05/2019 No results found for: CHOL No results found for: TRIG No results found for: HDL No results found for: LDL Estimated Nutritional Needs: Calorie Needs: 1400/day (25kcal/kg) Fluids: 1420ml (1ml/emeka intake) Protein: 56g (1g/kg) Intervention/Education Provided: Lab and intake review/recommendations Patient/Family Education: Learner: caregiver Readiness: action - ready to set action plan and implement Method: explanation Response: verbalizes understanding Education Materials Provided: none Monitoring/Evaluation: Weight, Food Record/Recall, Meal Planning, Physical Activity, Medication Management, Goal Assessment This note has been communicated to referring healthcare provider. Dhaval Shelton RDN, LD Office [1] Current Outpatient Medications: acetaminophen (TYLENOL) 325 MG tablet, Take 1 (one) tablet (325 mg total) by mouth every 4 (four) hours as needed ., Disp: , Rfl: acetaminophen (TYLENOL) 650 MG suppository, Insert into the rectum., Disp: , Rfl: acyclovir (ZOVIRAX) 5 % ointment, Apply topically 6 (six) times a day . (Patient not taking: Reported on 10/19/2024 .), Disp: , Rfl: alendronate (FOSAMAX) 70 MG tablet, Take 1 (one) tablet (70 mg total) by mouth every 7 days ., Disp: , Rfl: ARIPiprazole (ABILIFY) 10 MG tablet, Take 1 (one) tablet (10 mg total) by mouth daily ., Disp: , Rfl: bisacodyl (DULCOLAX) 10 mg suppository, Insert 1 (one) suppository (10 mg total) into the rectum daily as needed ., Disp: , Rfl: calcium-vitamin D (OS-EMEKA +D) 500 mg(1,250mg) -200 unit per tablet, take by Oral route., Disp: , Rfl: carBAMazepine (TEGretol) 100 mg chewable tablet, Chew and Swallow 1 (one) tablet (100 mg total) daily ., Disp: , Rfl: cholecalciferol, vitamin D3, 1,000 unit tablet, Take 1 (one) tablet (1,000 Units total) by mouth daily ., Disp: , Rfl: cyanocobalamin (B-12) 1000 MCG tablet, Take 1 (one) tablet (1,000 mcg total) by mouth daily ., Disp: , Rfl: diazePAM (VALIUM) 2 MG tablet, Take 0.5 (one-half) tablet (1 mg total) by mouth daily ., Disp: 15 tablet, Rfl: 2 docusate (COLACE) 50 mg/5 mL liquid, Take 10 mL (100 mg total) by mouth daily ., Disp: , Rfl: furosemide (LASIX) 20 MG tablet, , Disp: , Rfl: guaiFENesin (ROBITUSSIN) 100 mg/5 mL syrup, Take 5 mL (100 mg total) by mouth every 4 (four) hours ., Disp: , Rfl: hydrOXYzine (ATARAX) 50 MG tablet, Take 0.5 (one-half) tablet (25 mg total) by mouth nightly ., Disp: , Rfl: lamoTRIgine (LaMICtal) 25 MG TChD, , Disp: , Rfl: levothyroxine (SYNTHROID, LEVOTHROID) 50 MCG tablet, Take 1 (one) tablet (50 mcg total) by mouth daily ., Disp: , Rfl: losartan (COZAAR) 100 MG tablet, Take 1 (one) tablet (100 mg total) by mouth daily ., Disp: 30 tablet, Rfl: 1 lovastatin (MEVACOR) 20 MG tablet, Take 1 (one) tablet (20 mg total) by mouth nightly ., Disp: , Rfl: melatonin 10 mg Tab, Take 10 mg by mouth daily ., Disp: , Rfl: mupirocin (BACTROBAN) 2 % ointment, Apply topically 2 (two) times a day ., Disp: , Rfl: sodium chloride 1,000 mg TbSO, Take 1 (one) tablet (1,000 mg total) by mouth 2 (two) times a day with meals ., Disp: 60 tablet, Rfl: 11 documented in this [id number] NoteHPI Chief Complaint Patient presents with Nail Care diab nail care/A1C-6 on 06/27/24 Patient is a pleasant 78-year-old female who comes in today with her roustabout for her nails cut. Her nails cut at home recently from a doctor however he has since retired. Geriatric care is managed by primary including Dr. Mobley. Past Medical History: Diagnosis Date Cerebral palsy (HCC) Hypothyroidism Osteoporosis Seizure disorder (HCC) 2017 Type 2 diabetes mellitus (HCC) Past Surgical History: Procedure Laterality Date CT COLONOSCOPY 10/05/2023 CT COLONOSCOPY Social History Socioeconomic History Marital status: Single Tobacco Use Smoking status: Never Smokeless tobacco: Never Substance and Sexual Activity Alcohol use: No Drug use: No Social Drivers of Health Financial Resource Strain: Low Risk (08/30/2024) Received from [facility] Overall Financial Resource Strain (CARDIA) Difficulty of Paying Living Expenses: Not hard at all Food Insecurity: No Food Insecurity (08/30/2024) Received from [facility] Hunger Vital Sign Worried About Running Out of Food in the Last Year: Never true Ran Out of Food in the Last Year: Never true Transportation Needs: No Transportation Needs (08/30/2024) Received from [facility] PRAPARE - Transportation Lack of Transportation (Medical): No Lack of Transportation (Non-Medical): No Housing Stability: Low Risk (08/30/2024) Received from [facility] Housing Stability Vital Sign Unable to Pay for Housing in the Last Year: No Number of Times Moved in the Last Year: 0 Homeless in the Last Year: No Review of Systems -Patient is essentially noncommunicative and therefore denied Physical Exam -Vascular: DP pulses are palpable 2-4. PT pulses are essentially nonpalpable. CFT is delayed with mild foot and ankle edema. Derm: Skin is shiny atrophic and dysvascular. No open ulcers no erythema no rashes noted nodules. Neuro: Light touch is blunted Babinski's is normal. Musculoskeletal: Muscle strength is 2 out of 5 with okay tone. Ankle subtalar midtarsal is full and pain-free. Nails left [id number] and right foot [id number] are elongated and dystrophic. Impression/Plan Problem List Items Addressed This Visit None Visit Diagnoses Onychodystrophy - Primary Peripheral vascular disease, unspecified Patient is a pleasant 77 female with diabetes is, early arterial disease and onychodystrophy to 10 nails. -She does qualify for high risk nail care. Procedure: After timeout consent was performed, sharply debrided and debulked in height and length 10 onychodystrophy nails with a sharp cranial nippers consistent with a q8 modifier. Follow-up in 3 months or 6 months for foot nail care. AUTHENTICATED BY SOTO TONY JR., ON 10/19/2024 10:47:44[facility]03-12-2025 History of Present illness Narrative* Soto Tony Jr., DP - 10/19/2024 10:46 AM EDT HPI Chief Complaint Patient presents with Nail Care diab nail care/A1C-6 on 06/27/24 Patient is a pleasant 78-year-old female who comes in today with her roustabout for her nails cut. Her nails cut at home recently from a doctor however he has since retired. Geriatric care is managed by primary including Dr. Mobley. Past Medical History: Diagnosis Date Cerebral palsy (HCC) Hypothyroidism Osteoporosis Seizure disorder (HCC) 2017 Type 2 diabetes mellitus (HCC) Past Surgical History: Procedure Laterality Date CT COLONOSCOPY 10/05/2023 CT COLONOSCOPY Social History Socioeconomic History Marital status: Single Tobacco Use Smoking status: Never Smokeless tobacco: Never Substance and Sexual Activity Alcohol use: No Drug use: No Social Drivers of Health Financial Resource Strain: Low Risk (08/30/2024) Received from [facility] Overall Financial Resource Strain (CARDIA) Difficulty of Paying Living Expenses: Not hard at all Food Insecurity: No Food Insecurity (08/30/2024) Received from [facility] Hunger Vital Sign Worried About Running Out of Food in the Last Year: Never true Ran Out of Food in the Last Year: Never true Transportation Needs: No Transportation Needs (08/30/2024) Received from [facility] PRAPARE - Transportation Lack of Transportation (Medical): No Lack of Transportation (Non-Medical): No Housing Stability: Low Risk (08/30/2024) Received from [facility] Housing Stability Vital Sign Unable to Pay for Housing in the Last Year: No Number of Times Moved in the Last Year: 0 Homeless in the Last Year: No Review of Systems -Patient is essentially noncommunicative and therefore denied Physical Exam -Vascular: DP pulses are palpable 2-4. PT pulses are essentially nonpalpable. CFT is delayed with mild foot and ankle edema. Derm: Skin is shiny atrophic and dysvascular. No open ulcers no erythema no rashes noted nodules. Neuro: Light touch is blunted Babinski's is normal. Musculoskeletal: Muscle strength is 2 out of 5 with okay tone. Ankle subtalar midtarsal is full andpain-free. Nails left [id number] and right foot [id number] are elongated and dystrophic. Impression/Plan Problem List Items Addressed This Visit None Visit Diagnoses Onychodystrophy - Primary Peripheral vascular disease, unspecified Patient is a pleasant 77 female with diabetes is, early arterial disease and onychodystrophy to 10 nails. -She does qualify for high risk nail care. Procedure: After timeout consent was performed, sharply debrided and debulked in height and length 10 onychodystrophy nails with a sharp cranial nippers consistent with a q8 modifier. Follow-up in 3 months or 6 months for foot nail care. documented in this [id number] Evaluation + Plan note* Assessment & Plan Note - Tremayne Andrade DO - 10/17/2024 11:31 AM EDT Associated Problem(s): Hyponatremia Intermittent problem since G-tube placement 04/2024. Na 126 on 09/15/2024. She is following with nephrology, Dr. Hernandez, and with a cane packer. Her water flushes are decreased to 150 mL with feeds and 40 mL with meds. She takes sodium tab twice daily and furosemide 20 mg daily her sodium is increasedto 132 on 10/11/24. He has appointment for follow-up with nephrology and for updated labs next week. [id number] Miscellaneous Notes* Assessment & Plan Note - Tremayne Andrade DO - 10/17/2024 11:31 AM EDTAssociated Problem(s): Hyponatremia Intermittent problem since G-tube placement 04/2024. Na 126 on 09/15/2024. She is following with nephrology, Dr. Hernandez, and with a cane packer. Her water flushes are decreased to 150 mL with feeds and 40 mL with meds. She takes sodium tab twice daily and furosemide 20 mg daily her sodium is increasedto 132 on 10/11/24. He has appointment for follow-up with nephrology and for updated labs next week. * Assessment & Plan Note - Tremayne Andrade DO - 10/17/2024 11:26 AM EDT Associated Problem(s): Primary hypertension BP goal <150/90. On losartan 50 mg daily. BP continues to run 150s to 160/80s and [facility] staff reports this is usual for her. - Increase losartan to 100 mg daily - Continue checking daily BP, keep a log - Parameters given to call office if SBP less than 100 or greater than 180 - Follow-up in 1 month documented in this [id number] Evaluation + Plan note* Assessment & Plan Note - Tremayne Andrade DO - 10/17/2024 11:26 AM EDT Associated Problem(s): Primary hypertension BP goal <150/90. On losartan 50 mg daily. BP continues to run 150s to 160/80s and [facility] staff reports this is usual for her. - Increase losartan to 100 mg daily - Continue checking daily BP, keep a log - Parameters given to call office if SBP less than 100 or greater than 180 - Follow-up in 1 month [id number] History of Present illness Narrative* Tremayne Andrade DO - 10/17/2024 10:40 AM EDT Assessment/Plan: Primary hypertension BP goal <150/90. On losartan 50 mg daily. BP continues to run 150s to 160/80s and [facility] staff reports this is usual for her. - Increase losartan to 100 mg daily - Continue checking daily BP, keep a log - Parameters given to call office if SBP less than 100 or greater than 180 - Follow-up in 1 month Hyponatremia Intermittent problem since G-tube placement 04/2024. Na 126 on 09/15/2024. She is following with nephrology, Dr. Hernandez, and with a cane packer. Her water flushes are decreased to 150 mL with feeds and 40 mL with meds. She takes sodium tab twice daily and furosemide 20 mg daily her sodium is increasedto 132 on 3/4/25. He has appointment for follow-up with nephrology and for updated labs next week. Subjective: Mik Shelton is a 79 y.o. female Chief Complaint Patient presents with Follow-up F/U on hyponatremia and HTN Patient presents for follow-up hyponatremia and HTN. She is accompanied by [facility]. HTN BP last visit 162/70 and [facility] staff reported this was usual for her. She had recently switched from lisinopril to losartan 25 mg daily due to an episode of angioedema that was determined to be caused by lisinopril. Last month, increased losartan from 25 mg to 50 mg daily. senior living staff report her blood pressure has improved minimally, now 150s to 160 over 80s. Hyponatremia She is following with nephrology, Dr. Hernandez, and cane packer. Her water flushes are decreased to 150 mL with feeds and 40 mL with meds. Her sodium is increased to 132 on 10/11/24, up from 126 3 weeks ago. She has follow-up with nephrology and an appointment for repeat labs in the next week. 09/19/2024 Hyponatremia has been a problem since G-tube was placed in 04/2024. Her lowest sodium last month, down to 119. Her strategic procurement manager had tried increasing water flush volume with her feeds, thinking that hyponatremia may be due to dehydration. She was getting 120 mL flush before and after feeds, but it was increased to 170 mL, precipitating the critically low sodium of 119. Her water flushes were reduced back to 120mL before and after feeds. Dr. Huizar also started sodium chloride 1 g once daily supplement. The following portions of the patient's history were reviewed and updated as appropriate: allergies, current medications, past family history, past medical history, past social history, past surgicalhistory and problem list. Review of Systems Objective: PACU Vitals 10/17/24 1039 BP: (!) 156/82 Pulse: 84 Resp: 16 SpO2: 92% Physical Exam Constitutional: General: She is not in acute distress. Appearance: Normal appearance. She is not ill-appearing, toxic-appearing or diaphoretic. HENT: Head: Normocephalic and atraumatic. Cardiovascular: Rate and Rhythm: Normal rate and regular rhythm. Heart sounds: No murmur heard. No gallop. Pulmonary: Effort: Pulmonary effort is normal. No respiratory distress. Breath sounds: No wheezing or rales. Skin: General: Skin is warm and dry. Coloration: Skin is not jaundiced or pale. Neurological: Mental Status: She is alert. Mental status is at baseline. Psychiatric: Mood and Affect: Mood normal. Speech: She is noncommunicative. For any new medications prescribed today, patient was educated about indications for the medication, how to take the medication and potential side effects of the medications. My ongoing relationship with Mik Shelton requires continued responsibility and cognitive effort of being the focal point for all services related to chronic condition(s). Tremayne Andrade DO documented in this [id number] NoteAssessment/Plan: Primary hypertension BP goal <150/90. On losartan 50 mg daily. BP continues to run 150s to 160/80s and [facility] staff reports this is usual for her. - Increase losartan to 100 mg daily - Continue checking daily BP, keep a log - Parameters given to call office if SBP less than 100 or greater than 180 - Follow-up in 1 month Hyponatremia Intermittent problem since G-tube placement 04/2024. Na 126 on 09/15/2024. She is following with nephrology, Dr. Hernandez, and with a cane packer. Her water flushes are decreased to 150 mL with feeds and 40 mL with meds. She takes sodium tab twice daily and furosemide 20 mg daily her sodium is increased to 132 on 10/11/24. He has appointment for follow-up with nephrology and for updated labs next week. Subjective: Mik Shelton is a 79 y.o. female Chief Complaint Patient presents with Follow-up F/U on hyponatremia and HTN Patient presents for follow-up hyponatremia and HTN. She is accompanied by [facility] staff. HTN BP last visit 162/70 and [facility] staff reported this was usual for her. She had recently switched from lisinopril to losartan 25 mg daily due to an episode of angioedema that was determined to be caused by lisinopril. Last month, increased losartan from 25 mg to 50 mg daily. senior living staff report her blood pressure has improved minimally, now 150s to 160 over 80s. Hyponatremia She is following with nephrology, Dr. Hernandez, and cane packer. Her water flushes are decreased to 150 mL with feeds and 40 mL with meds. Her sodium is increased to 132 on 10/11/24, up from 126 3 weeks ago. She has follow-up with nephrology and an appointment for repeat labs in the next week. 09/19/2024 Hyponatremia has been a problem since G-tube was placed in 04/2024. Her lowest sodium last month, down to 119. Her strategic procurement manager had tried increasing water flush volume with her feeds, thinking that hyponatremia may be due to dehydration. She was getting 120 mL flush before and after feeds, but it was increased to 170 mL, precipitating the critically low sodium of 119. Her water flushes were reduced back to 120 mL before and after feeds. Dr. Huizar also started sodium chloride 1 g once daily supplement. The following portions of the patient's history were reviewed and updated as appropriate: allergies, current medications, past family history, past medical history, past social history, past surgical history and problem list. Review of Systems Objective: PACU Vitals 10/17/24 1039 BP: (!) 156/82 Pulse: 84 Resp: 16 SpO2: 92% Physical Exam Constitutional: General: She is not in acute distress. Appearance: Normal appearance. She is not ill-appearing, toxic-appearing or diaphoretic. HENT: Head: Normocephalic and atraumatic. Cardiovascular: Rate and Rhythm: Normal rate and regular rhythm. Heart sounds: No murmur heard. No gallop. Pulmonary: Effort: Pulmonary effort is normal. No respiratory distress. Breath sounds: No wheezing or rales. Skin: General: Skin is warm and dry. Coloration: Skin is not jaundiced or pale. Neurological: Mental Status: She is alert. Mental status is at baseline. Psychiatric: Mood and Affect: Mood normal. Speech: She is noncommunicative. For any new medications prescribed today, patient was educated about indications for the medication, how to take the medication and potential side effects of the medications. My ongoing relationship with Mik Shelton requires continued responsibility and cognitive effort of being the focal point for all services related to chronic condition(s). Tremayne Andrade DO AUTHENTICATED BY TREMAYNE ANDRADE, ON 10/17/2024 11:32:17[facility] 10-12-2024 NotePlease call program director group work Saumya London and let her know patient's sodium is improving, now 132. Continue current plan laid out by nephrology and nutrition. AUTHENTICATED BY TREMAYNE ANDRADE, ON 10/12/2024 13:50:44[facility] 10-11-2024 NotePlease call program director group work Saumya Mccrayshereepolly and let her know patient's sodium is improving, now 131 up from 126. Continue current plan laid out by nephrology. AUTHENTICATED BY TREMAYNE ANDRADE, ON 10/11/2024 23:16:20[facility] 10-07-2024 History of Present illness Narrative* Dhaval Shelton, RD - 10/07/2024 1:29 PM EST Patient Name: Mik Shelton Patient : 1945 Primary Care Provider: Tremayne Andrade DO Referred By: Tremayne Andrade DO Referral Diagnosis: Diabetes Type 2, hyponatremia Start Time: 1330 End Time: 1400 Nutrition Diagnosis: Inadequate fluid intake related to limited availability of fluid daily as evidenced by patient reported fluid intake. Nutrition Goals: I will increase water flush at feedings to 150ml + water flush of 40 ml for a total of 190ml. I will continue medication water flushes at 40ml between feedings Follow Up: Follow up appointment scheduled by patient- pt caregivers to call to set up so they can check her schedule. Assessment: Pt starting on tube feedings 04/22/24 after PEG placed due to pt increasingly limited oral intake. Wt gain of 13# in the last 2 months but has stabilized out in the last month. Pt has beenexperiencing hyponatremia since starting feedings and pt met with Dr. Hernandez on 10/05 at which time he indicated probable hypotonic hyponatremia secondary to increased free water intake with low soluteintake. Water flushes where to be decreased by 50ml however caregivers interpreted to decrease to 50ml per feeding providing significantly less fluids/day Secured chatted with Dr. Andrade, primary careprovider and referrer who agrees with plan. This recommendation with provide pt with 1480-1600ml flu id/day or 104-112% of her estimated fluid needs including all medication, feeding and oral intake. Pt has also been place on 1g sodium chloride tablet daily. Most recent labs indicating a rise in both sodium and chloride levels on 10/06/24. Will continue to monitor hydration status and recommend further decreasing water flush by 50ml for a total of 140ml with feedings and meds 4 times daily if hyponatremia does not resolve. Support Person Present: caregivers Other Social Support: caregivers Language or Literacy Factors: pt is nonverbal Height: 61 Current Weight: 124.5#- unable to obtain wt today but caregivers indicate most recent wt was 10/05/24 BMI: 23.5 BMI Classification: Normal (18.5-24.9) Weight History: significant improvement in wt over the last few months with enteral feedings. Wt appears to be stabilizing out, will monitor trends Wt Readings from Last 10 Encounters: 09/19/24 56.5 kg (124 lb 8 oz) 03/28/24 48.8 kg (107 lb 8 oz) 03/18/24 48.5 kg (107 lb) 03/10/22 61.7 kg (136 lb) 11/24/18 57.2 kg (126 lb) 04/22/18 59 kg (130 lb) 10/22/17 56.7 kg (125 lb) 04/20/17 58.7 kg (129 lb 8 oz) 04/18/16 64.9 kg (143 lb) 10/18/15 65.5 kg (144 lb 8 oz) Diet History/Recall: Jevity 1.5 with 4 -8oz bolus daily Calories: 1420kcal Protein: 60g Sodium: 1260mg Free water: 720ml Fluid intake: 5:30 am 40ml fluid with meds 6am 90ml fluid with meds and feeding 12pm 90ml fluid with meds and feeding 5pm 50ml fluid with feeding 10pm 90ml fluid with meds and feeding Pt also has a lunch daily which she may eat a few bites and intake is inconsistent, pt is also offered a drink at this time and caregivers reports she may have 1/2 cup fluid and does not drink anything else throughout the day. Pt is on a pureed diet with honey thickened liquids. Total fluid intake: 1080ml with flushes and additional 0-120ml with oral intake PMHx: Nutrition related history: PEG placed 04/22 for decreased oral intake, pt is on pureed diet with honey thickened liquids Past Medical History: Diagnosis Date Cerebral palsy (HCC) Hypothyroidism Osteoporosis Seizure disorder (HCC) 2017 Type 2 diabetes mellitus (HCC) Current/Pertinent Medications: Current Outpatient Medications: acetaminophen (TYLENOL) 325 MG tablet, Take 1 (one) tablet (325 mg total) by mouth every 4 (four) hours as needed ., Disp: , Rfl: acetaminophen (TYLENOL) 650 MG suppository, Insert into the rectum., Disp: , Rfl: acyclovir (ZOVIRAX) 5 % ointment, Apply topically 6 (six) times a day ., Disp: , Rfl: alendronate (FOSAMAX) 70 MG tablet, Take 1 (one) tablet (70 mg total) by mouth every 7 days ., Disp: , Rfl: ARIPiprazole (ABILIFY) 10 MG tablet, Take 1 (one) tablet (10 mg total) by mouth daily ., Disp: , Rfl: bisacodyl (DULCOLAX) 10 mg suppository, Insert 1 (one) suppository (10 mg total) into the rectum daily as needed ., Disp: , Rfl: calcium-vitamin D (OS-EMEKA +D) 500 mg(1,250mg) -200 unit per tablet, take by Oral route., Disp: , Rfl: carBAMazepine (TEGretol) 100 mg chewable tablet, Chew and Swallow 1 (one) tablet (100 mg total) daily ., Disp: , Rfl: cholecalciferol, vitamin D3, 1,000 unit tablet, Take 1 (one) tablet (1,000 Units total) by mouth daily ., Disp: , Rfl: cyanocobalamin (B-12) 1000 MCG tablet, Take 1 (one) tablet (1,000 mcg total) by mouth daily ., Disp: , Rfl: diazepam (VALIUM) 2 MG tablet, Take 0.5 tablet by oral route every morning and a full tablet every evening., Disp: , Rfl: docusate (COLACE) 50 mg/5 mL liquid, Take 10 mL (100 mg total) by mouth daily ., Disp: , Rfl: guaiFENesin (ROBITUSSIN) 100 mg/5 mL syrup, Take 5 mL (100 mg total) by mouth every 4 (four) hours ., Disp: , Rfl: hydrOXYzine (ATARAX) 50 MG tablet, Take 0.5 (one-half) tablet (25 mg total) by mouth nightly ., Disp: , Rfl: lamoTRIgine (LaMICtal) 25 MG TChD, , Disp: , Rfl: levothyroxine (SYNTHROID, LEVOTHROID) 50 MCG tablet, Take 1 (one) tablet (50 mcg total) by mouth daily ., Disp: , Rfl: losartan (COZAAR) 50 MG tablet, Take 1 (one) tablet (50 mg total) by mouth daily ., Disp: 30 tablet, Rfl: 1 lovastatin (MEVACOR) 20 MG tablet, Take 1 (one) tablet (20 mg total) by mouth nightly ., Disp: , Rfl: melatonin 10 mg Tab, Take 10 mg by mouth daily ., Disp: , Rfl: mupirocin (BACTROBAN) 2 % ointment, Apply topically 2 (two) times a day ., Disp: , Rfl: sodium chloride 1,000 mg TbSO, Take 1 (one) tablet (1,000 mg total) by mouth 2 (two) times a day with meals ., Disp: 60 tablet, Rfl: 11 Lab Values: Lab work shows glucose at 101 10/06/24. Caregivers unsure of blood sugars checks at residence and state it is not daily. No recent A1C noted Lab Results Component Value Date HGBA1C 6.3 02/26/2022 HGBA1C 6.0 02/26/2021 HGBA1C 6.1 02/22/2020 HGBA1C 6.2 08/05/2019 No results found for: CHOL No results found for: TRIG No results found for: HDL No results found for: LDL Nutrition Focused Findings: Dentition: honey thickened liquids, pureed diet- one meal daily Changes in appetite: had decreased and PEG placed Food allergies:none Cultural or Rastafarian dietary needs: none Current Activity Level: Sedentary Food Insecurity Survey: Within the past 12 months, we worried whether our food would run out before we got money to buy more. Never True [0] Within the past 12 months, the food we bought just didn't last and we didn't have the money to get more. Never true (0) Estimated Nutritional Needs: Calorie Needs: 1400/day (25kcal/kg) Fluids: 1420ml (1ml/emeka intake) Protein: 56g (1g/kg) Intervention/Education Provided: discussed hydration needs and water flush schedule for entire day with all meds, feedings and oral intake, discussed wt goals and monitoring trends, blood glucose levels and monitoring Patient/Family Education: Learner: caregiver and patient Readiness: action - ready to set action plan and implement Method: explanation and handout Response: verbalizes understanding Education Materials Provided: goal sheet Monitoring/Evaluation: Weight, Food Record/Recall, Meal Planning, Physical Activity, Medication Management, Goal Assessment This note has been communicated to referring healthcare provider. Dhaval Shelton RDN, [facility] Office documented in this [id number] Note* Addendum Note - Tremayne Andrade DO - 10/06/2024 11:35 AM ESTAddended by: TREMAYNE ANDRADE on: 10/06/2024 11:35 AM Modules accepted: Orders [id number] Miscellaneous Notes* Addendum Note - Tremayne Andrade DO - 10/06/2024 11:35 AM ESTAddended by: TREMAYNE ANDRADE on: 10/06/2024 11:35 AM Modules accepted: Orders * Assessment & Plan Note - Tremayne Andrade DO - 09/25/2024 9:53 PM EST Associated Problem(s): Type 2 diabetes mellitus (HCC) Diet controlled diabetes. Last A1c 06/2025 was 6.0%. - Monitor A1c annually or with any significant change in weight or symptoms * Assessment & Plan Note - Tremayne Andrade DO - 09/25/2024 9:51 PM EST Associated Problem(s): Hypothyroidism Currently on levothyroxine 50 mcg daily. Last TSH was 2.13 on 04/18/2024. - Check TSH annually or with any significant change in weight or health status. * Assessment & Plan Note - Tremayne Andrade DO - 09/25/2024 9:50 PM EST Associated Problem(s): Primary hypertension BP goal <150/90. On losartan 25 mg daily. BP today 162/70 and [facility] staff reports this is usual for her. - Increase losartan to 50 mg daily - Follow-up in 1 month * Assessment & Plan Note - Tremayne Andrade DO - 09/25/2024 9:47 PM EST Associated Problem(s): Hyponatremia Intermittent problem since G-tube placement 04/2024. Na 126 on 09/15/2024. Her water flush volume withfeeds was recently reduced back to 240 mL from 340 mL and she was started on salt tab once daily. Her sodium has not improved. Staff report her mentation and behavior are at baseline. - Reduce water flush volume further to 200 mL with each feed (4 times daily) - Continue once daily salt tab - Recheck BMP in 1 week * Assessment & Plan Note - Tremayne Andrade DO - 09/25/2024 9:42 PM EST Associated Problem(s): On tube feeding diet Tube feedings Jevity 1.5, 4 feedings per day. Managed by dietitian, needs referral for new dietitian. Having complication of hyponatremia for the past 4 to 5 months since G-tube was placed. Reducing water flush volume from 240 mmHg feeding to 200 mL each feeding. * Assessment & Plan Note - Tremayne Andrade DO - 09/25/2024 9:40 PM EST Associated Problem(s): Seizures (HCC) Stable on carbamazepine, lamotrigine, diazepam. Continue medications and monitor. * Assessment & Plan Note - Tremayne Andrade DO - 09/25/2024 9:39 PM EST Associated Problem(s): Mental disability Mood is stable on aripiprazole, lamotrigine, diazepam, and hydroxyzine. Continue current medication. Monitor behavior and caution for oversedation. documented in this [id number] Evaluation + Plan note* Assessment & Plan Note - Tremayne Andrade DO - 09/25/2024 9:53 PM EST Associated Problem(s): Type 2 diabetes mellitus (HCC) Diet controlled diabetes. Last A1c 06/2025 was 6.0%. - Monitor A1c annually or with any significant change in weight or symptoms [id number] Miscellaneous Notes* Assessment & Plan Note - Tremayne Andrade DO - 09/25/2024 9:53 PM ESTAssociated Problem(s): Type 2 diabetes mellitus (HCC) Diet controlled diabetes. Last A1c 06/2025 was 6.0%. - Monitor A1c annually or with any significant change in weight or symptoms * Assessment & Plan Note - Tremayne Andrade DO - 09/25/2024 9:51 PM EST Associated Problem(s): Hypothyroidism Currently on levothyroxine 50 mcg daily. Last TSH was 2.13 on 04/18/2024. - Check TSH annually or with any significant change in weight or health status. * Assessment & Plan Note - Tremayne Andrade DO - 09/25/2024 9:50 PM EST Associated Problem(s): Primary hypertension BP goal <150/90. On losartan 25 mg daily. BP today 162/70 and [facility] staff reports this is usual for her. - Increase losartan to 50 mg daily - Follow-up in 1 month * Assessment & Plan Note - Tremayne Andrade DO - 09/25/2024 9:47 PM EST Associated Problem(s): Hyponatremia Intermittent problem since G-tube placement 04/2024. Na 126 on 09/15/2024. Her water flush volume withfeeds was recently reduced back to 240 mL from 340 mL and she was started on salt tab once daily. Her sodium has not improved. Staff report her mentation and behavior are at baseline. - Reduce water flush volume further to 200 mL with each feed (4 times daily) - Continue once daily salt tab - Recheck BMP in 1 week * Assessment & Plan Note - Tremayne Andrade DO - 09/25/2024 9:42 PM EST Associated Problem(s): On tube feeding diet Tube feedings Jevity 1.5, 4 feedings per day. Managed by dietitian, needs referral for new dietitian. Having complication of hyponatremia for the past 4 to 5 months since G-tube was placed. Reducing water flush volume from 240 mmHg feeding to 200 mL each feeding. * Assessment & Plan Note - Tremayne Andrade DO - 09/25/2024 9:40 PM EST Associated Problem(s): Seizures (HCC) Stable on carbamazepine, lamotrigine, diazepam. Continue medications and monitor. * Assessment & Plan Note - Tremayne Andrade DO - 09/25/2024 9:39 PM EST Associated Problem(s): Mental disability Mood is stable on aripiprazole, lamotrigine, diazepam, and hydroxyzine. Continue current medication. Monitor behavior and caution for oversedation. documented in this [id number] Evaluation + Plan note* Assessment & Plan Note - Tremayne Andrade DO - 09/25/2024 9:51 PM EST Associated Problem(s): Hypothyroidism Currently on levothyroxine 50 mcg daily. Last TSH was 2.13 on 04/18/2024. - Check TSH annually or with any significant change in weight or health status. [id number] Evaluation + Plan note* Assessment & Plan Note - Tremayne Andrade DO - 09/25/2024 9:50 PM ESTAssociated Problem(s): Primary hypertension BP goal <150/90. On losartan 25 mg daily. BP today 162/70 and [facility] staff reports this is usual for her. - Increase losartan to 50 mg daily - Follow-up in 1 month [id number] Evaluation + Plan note* Assessment & Plan Note - Tremayne Andrade DO - 09/25/2024 9:47 PM ESTAssociated Problem(s): Hyponatremia Intermittent problem since G-tube placement 04/2024. Na 126 on 09/15/2024. Her water flush volume withfeeds was recently reduced back to 240 mL from 340 mL and she was started on salt tab once daily. Her sodium has not improved. Staff report her mentation and behavior are at baseline. - Reduce water flush volume further to 200 mL with each feed (4 times daily) - Continue once daily salt tab - Recheck BMP in 1 week [id number] Evaluation + Plan note* Assessment & Plan Note - Tremayne Andrade DO - 09/25/2024 9:42 PM ESTAssociated Problem(s): On tube feeding diet Tube feedings Jevity 1.5, 4 feedings per day. Managed by dietitian, needs referral for new dietitian. Having complication of hyponatremia for the past 4 to 5 months since G-tube was placed. Reducing water flush volume from 240 mmHg feeding to 200 mL each feeding. [id number] Evaluation + Plan note* Assessment & Plan Note - Tremayne Andrade DO - 09/25/2024 9:40 PM ESTAssociated Problem(s): Seizures (HCC) Stable on carbamazepine, lamotrigine, diazepam. Continue medications and monitor. [id number] Evaluation + Plan note* Assessment & Plan Note - Tremayne Andrade DO - 09/25/2024 9:39 PM ESTAssociated Problem(s): Mental disability Mood is stable on aripiprazole, lamotrigine, diazepam, and hydroxyzine. Continue current medication. Monitor behavior and caution for oversedation. [id number] NotePlease call program director group work Saumya London and let her know patient's sodium has not changed, it is still 126. I would like to increase her salt tabs to twice daily and have sent a prescription to [facility] for this. Continue 200 mL water flush with feeds, no change to water intake. Recheck labs in 1 week. AUTHENTICATED BY TREMAYNE ANDRADE, ON 09/22/2024 16:27:58[facility] 09-22-2024 History of Present illness Narrative* Tremayne Andrade DO - 09/22/2024 4:27 PM EST Please call program director group work Saumya London and let her know patient's sodium has not changed, it is still 126. I would like to increase her salt tabs to twice daily and have sent a prescription to [facility] for this. Continue 200 mL water flush with feeds, no change to water intake. Recheck labsin 1 week. * Tremayne Andrade DO - 09/19/2024 1:40 PM EST Assessment/Plan: Mental disability Mood is stable on aripiprazole, lamotrigine, diazepam, and hydroxyzine. Continue current medication. Monitor behavior and caution for oversedation. Seizures (HCC) Stable on carbamazepine, lamotrigine, diazepam. Continue medications and monitor. On tube feeding diet Tube feedings Jevity 1.5, 4 feedings per day. Managed by dietitian, needs referral for new dietitian. Having complication of hyponatremia for the past 4 to 5 months since G-tube was placed. Reducing water flush volume from 240 mmHg feeding to 200 mL each feeding. Hyponatremia Intermittent problem since G-tube placement 04/2024. Na 126 on 09/15/2024. Her water flush volume withfeeds was recently reduced back to 240 mL from 340 mL and she was started on salt tab once daily. Her sodium has not improved. Staff report her mentation and behavior are at baseline. - Reduce water flush volume further to 200 mL with each feed (4 times daily) - Continue once daily salt tab - Recheck BMP in 1 week Primary hypertension BP goal <150/90. On losartan 25 mg daily. BP today 162/70 and [facility] staff reports this is usual for her. - Increase losartan to 50 mg daily - Follow-up in 1 month Hypothyroidism Currently on levothyroxine 50 mcg daily. Last TSH was 2.13 on 04/18/2024. - Check TSH annually or with any significant change in weight or health status. Type 2 diabetes mellitus (HCC) Diet controlled diabetes. Last A1c 06/2025 was 6.0%. - Monitor A1c annually or with any significant change in weight or symptoms Subjective: Mik Shelton is a 79 y.o. female Chief Complaint Patient presents with Establish Care Wouldlike to discuss latest ER trip and sodium levels Patient presents to [facility] care. She is a [facility] [place] [facility] Dr[facility] Huizar at . PMH: Spastic quadriplegic cerebral palsy, developmental disability, seizure disorder, hypertension,hyperlipidemia, hypothyroidism, hyponatremia. Angioedema She went to ER 08/30/2024 for angioedema, which was determined to be due to lisinopril. Lisinopril was stopped and she was started on losartan 25 mg instead. Hyponatremia Hyponatremia has been a problem since G-tube was placed in 04/2024. Her lowest sodium last month, down to 119. Her strategic procurement manager had tried increasing water flush volume with her feeds, thinking that hyponatremia may be due to dehydration. She was getting 120 mL flush before and after feeds, but it was increased to 170 mL, precipitating the critically low sodium of 119. Her water flushes were reduced back to 120mL before and after feeds. Dr. Huizar also started sodium chloride 1 g once daily supplement. G-tube dependence Her tube feed is Jevity 1.5 4x/day She receives 240 mL water with each feeding. Specialist: Senior Marketing Specialist - [facility] - [facility] Navigator Needs new strategic procurement manager order - Maybe Dr. Jones can help The following portions of the patient's history were reviewed and updated as appropriate: allergies, current medications, past family history, past medical history, past social history, past surgicalhistory and problem list. Review of Systems Objective: PACU Vitals 09/19/24 1405 BP: (!) 162/70 Pulse: 90 Resp: 17 Temp: 96.9 F (36.1 C) SpO2: 94% Physical Exam Constitutional: General: She is not in acute distress. Appearance: She is not ill-appearing, toxic-appearing or diaphoretic. HENT: Head: Normocephalic and atraumatic. Eyes: Pupils: Pupils are equal, round, and reactive to light. Cardiovascular: Rate and Rhythm: Normal rate and regular rhythm. Heart sounds: Normal heart sounds. No murmur heard. No gallop. Pulmonary: Effort: No respiratory distress. Breath sounds: No wheezing or rales. Abdominal: General: Bowel sounds are normal. There is no distension. Palpations: Abdomen is soft. Tenderness: There is no abdominal tenderness. There is no guarding. Skin: General: Skin is warm and dry. Coloration: Skin is not jaundiced or pale. Findings: Rash present. Comments: Patches of raised and erythematous areas on her mid and low back. Fairly well circumscribed For any new medications prescribed today, patient was educated about indications for the medication, how to take the medication and potential side effects of the medications. My ongoing relationship with Mik Shelton requires continued responsibility and cognitive effort of being the focal point for all services related to chronic condition(s). *Total encounter time today was 70 minutes. This time includes review of past tests/notes, obtaining patient history, performing a medically necessary exam, counseling the patient, ordering tests/procedures/medications, documentation, and care coordination. Tremayne Andrade DO documented in this [id number] History of Present illness Narrative* Tremayne Andrade DO - 09/22/2024 4:27 PM EST Please call program director group work Saumya London and let her know patient's sodium has not changed, it is still 126. I would like to increase her salt tabs to twice daily and have sent a prescription to [facility] for this. Continue 200 mL water flush with feeds, no change to water intake. Recheck labsin 1 week. * Tremayne Andrade DO - 09/19/2024 1:40 PM EST Assessment/Plan: Mental disability Mood is stable on aripiprazole, lamotrigine, diazepam, and hydroxyzine. Continue current medication. Monitor behavior and caution for oversedation. Seizures (HCC) Stable on carbamazepine, lamotrigine, diazepam. Continue medications and monitor. On tube feeding diet Tube feedings Jevity 1.5, 4 feedings per day. Managed by dietitian, needs referral for new dietitian. Having complication of hyponatremia for the past 4 to 5 months since G-tube was placed. Reducing water flush volume from 240 mmHg feeding to 200 mL each feeding. Hyponatremia Intermittent problem since G-tube placement 04/2024. Na 126 on 09/15/2024. Her water flush volume withfeeds was recently reduced back to 240 mL from 340 mL and she was started on salt tab once daily. Her sodium has not improved. Staff report her mentation and behavior are at baseline. - Reduce water flush volume further to 200 mL with each feed (4 times daily) - Continue once daily salt tab - Recheck BMP in 1 week Primary hypertension BP goal <150/90. On losartan 25 mg daily. BP today 162/70 and [place] staff reports this is usual for her. - Increase losartan to 50 mg daily - Follow-up in 1 month Hypothyroidism Currently on levothyroxine 50 mcg daily. Last TSH was 2.13 on 04/18/2024. - Check TSH annually or with any significant change in weight or health status. Type 2 diabetes mellitus (HCC) Diet controlled diabetes. Last A1c 06/2025 was 6.0%. - Monitor A1c annually or with any significant change in weight or symptoms Subjective: Mik Shelton is a 79 y.o. female Chief Complaint Patient presents with [facility] Care Wouldlike to discuss latest ER trip and sodium levels Patient [facility]. She is a resident of a [place] [facility], is accompanied by group guardian [facility]. Previous PCP Dr. Huizar at . PMH: Spastic quadriplegic cerebral palsy, developmental disability, seizure disorder, hypertension,hyperlipidemia, hypothyroidism, hyponatremia. Angioedema She went to ER 08/30/2024 for angioedema, which was determined to be due to lisinopril. Lisinopril was stopped and she was started on losartan 25 mg instead. Hyponatremia Hyponatremia has been a problem since G-tube was placed in 04/2024. Her lowest sodium last month, down to 119. Her strategic procurement manager had tried increasing water flush volume with her feeds, thinking that hyponatremia may be due to dehydration. She was getting 120 mL flush before and after feeds, but it was increased to 170 mL, precipitating the critically low sodium of 119. Her water flushes were reduced back to 120mL before and after feeds. Dr. Huizar also started sodium chloride 1 g once daily supplement. G-tube dependence Her tube feed is Jevity 1.5 4x/day She receives 240 mL water with each feeding. Specialist: Senior Marketing Specialist - Nicolasa Carlos Palliative Care - [facility] Navigator Needs new strategic procurement manager order - Maybe Dr. Jones can help The following portions of the patient's history were reviewed and updated as appropriate: allergies, current medications, past family history, past medical history, past social history, past surgicalhistory and problem list. Review of Systems Objective: PACU Vitals 09/19/24 1405 BP: (!) 162/70 Pulse: 90 Resp: 17 Temp: 96.9 F (36.1 C) SpO2: 94% Physical Exam Constitutional: General: She is not in acute distress. Appearance: She is not ill-appearing, toxic-appearing or diaphoretic. HENT: Head: Normocephalic and atraumatic. Eyes: Pupils: Pupils are equal, round, and reactive to light. Cardiovascular: Rate and Rhythm: Normal rate and regular rhythm. Heart sounds: Normal heart sounds. No murmur heard. No gallop. Pulmonary: Effort: No respiratory distress. Breath sounds: No wheezing or rales. Abdominal: General: Bowel sounds are normal. There is no distension. Palpations: Abdomen is soft. Tenderness: There is no abdominal tenderness. There is no guarding. Skin: General: Skin is warm and dry. Coloration: Skin is not jaundiced or pale. Findings: Rash present. Comments: Patches of raised and erythematous areas on her mid and low back. Fairly well circumscribed For any new medications prescribed today, patient was educated about indications for the medication, how to take the medication and potential side effects of the medications. My ongoing relationship with Mik Shelton requires continued responsibility and cognitive effort of being the focal point for all services related to chronic condition(s). *Total encounter time today was 70 minutes. This time includes review of past tests/notes, obtaining patient history, performing a medically necessary exam, counseling the patient, ordering tests/procedures/medications, documentation, and care coordination. Tremayne Andrade DO documented in this [id number] Instructions* Patient Instructions* Tremayne Andrade DO - 09/19/2024 3:[address] Jones's office for follow up G-tube management. documented in this [id number] Instructions* Patient Instructions* Tremayne Andrade DO - 09/19/2024 3:[address] Jones's office for follow up G-tube management. documented in this [id number] NoteAssessment/Plan: Mental disability Mood is stable on aripiprazole, lamotrigine, diazepam, and hydroxyzine. Continue current medication. Monitor behavior and caution for oversedation. Seizures (HCC) Stable on carbamazepine, lamotrigine, diazepam. Continue medications and monitor. On tube feeding diet Tube feedings Jevity 1.5, 4 feedings per day. Managed by dietitian, needs referral for new dietitian. Having complication of hyponatremia for the past 4 to 5 months since G-tube was placed. Reducing water flush volume from 240 mmHg feeding to 200 mL each feeding. Hyponatremia Intermittent problem since G-tube placement 04/2024. Na 126 on 09/15/2024. Her water flush volume with feeds was recently reduced back to 240 mL from 340 mL and she was started on salt tab once daily. Her sodium has not improved. Staff report her mentation and behavior are at baseline. - Reduce water flush volume further to 200 mL with each feed (4 times daily) - Continue once daily salt tab - Recheck BMP in 1 week Primary hypertension BP goal <150/90. On losartan 25 mg daily. BP today 162/70 and [place] [facility] staff reports this is usual for her. - Increase losartan to 50 mg daily - Follow-up in 1 month Hypothyroidism Currently on levothyroxine 50 mcg daily. Last TSH was 2.13 on 04/18/2024. - Check TSH annually or with any significant change in weight or health status. Type 2 diabetes mellitus (HCC) Diet controlled diabetes. Last A1c 06/2025 was 6.0%. - Monitor A1c annually or with any significant change in weight or symptoms Subjective: Mik Shelton is a 79 y.o. female Chief Complaint Patient presents with [facility] Care Wouldlike to discuss latest ER trip and sodium levels Patient presents to [facility] care. She is a [place] [facility], is accompanied by [place] [facility] staff. Previous PCP Dr. Huizar at . PMH: Spastic quadriplegic cerebral palsy, developmental disability, seizure disorder, hypertension, hyperlipidemia, hypothyroidism, hyponatremia. Angioedema She went to ER 08/30/2024 for angioedema, which was determined to be due to lisinopril. Lisinopril was stopped and she was started on losartan 25 mg instead. Hyponatremia Hyponatremia has been a problem since G-tube was placed in 04/2024. Her lowest sodium last month, down to 119. Her strategic procurement manager had tried increasing water flush volume with her feeds, thinking that hyponatremia may be due to dehydration. She was getting 120 mL flush before and after feeds, but it was increased to 170 mL, precipitating the critically low sodium of 119. Her water flushes were reduced back to 120 mL before and after feeds. Dr. Huizar also started sodium chloride 1 g once daily supplement. G-tube dependence Her tube feed is Jevity 1.5 4x/day She receives 240 mL water with each feeding. Specialist: Senior Marketing Specialist - Nicolasa Carlos Palliative Care - [facility] Navigator Needs new strategic procurement manager order - Maybe Dr. Jones can help The following portions of the patient's history were reviewed and updated as appropriate: allergies, current medications, past family history, past medical history, past social history, past surgical history and problem list. Review of Systems Objective: PACU Vitals 09/19/24 1405 BP: (!) 162/70 Pulse: 90 Resp: 17 Temp: 96.9 degrees F (36.1 degrees C) SpO2: 94% Physical Exam Constitutional: General: She is not in acute distress. Appearance: She is not ill-appearing, toxic-appearing or diaphoretic. HENT: Head: Normocephalic and atraumatic. Eyes: Pupils: Pupils are equal, round, and reactive to light. Cardiovascular: Rate and Rhythm: Normal rate and regular rhythm. Heart sounds: Normal heart sounds. No murmur heard. No gallop. Pulmonary: Effort: No respiratory distress. Breath sounds: No wheezing or rales. Abdominal: General: Bowel sounds are normal. There is no distension. Palpations: Abdomen is soft. Tenderness: There is no abdominal tenderness. There is no guarding. Skin: General: Skin is warm and dry. Coloration: Skin is not jaundiced or pale. Findings: Rash present. Comments: Patches of raised and erythematous areas on her mid and low back. Fairly well circumscribed For any new medications prescribed today, patient was educated about indications for the medication, how to take the medication and potential side effects of the medications. My ongoing relationship with Mik Shelton requires continued responsibility and cognitive effort of being the focal point for all services related to chronic condition(s). *Total encounter time today was 70 minutes. This time includes review of past tests/notes, obtaining patient history, performing a medically necessary exam, counseling the patient, ordering tests/procedures/medications, documentation, and care coordination. Tremayne Andrade DO AUTHENTICATED BY TREMAYNE ANDRADE, ON 09/25/2024 21:57:18[facility] 09-06-2024 History of Present illness Narrative* Tana Yan APRN-ALEXANDRA - 09/06/2024 10:30 AM EST Subjective Patient ID: Mik Shelton is a 79 y.o. female who presents for Hospital Follow-up. HPI Here today for a hospital follow up. 08/30 she was sent to the hospital due to angioedema, ER reports it was from her lisinopril, they stopped the lisinopril and she was treated with FFP, benadryl anddecadron. They did not restart any BP medications at the time. Acute concerns with a spot on her upper lip. It is red and crusted, only in one spot. Caregiver denies patient picking at the spot or itching it. Review of Systems Constitutional: Negative for chills, fatigue and fever. Respiratory: Negative for cough and shortness of breath. Cardiovascular: Negative for chest pain, palpitations and leg swelling. Gastrointestinal: Negative for constipation, diarrhea, nausea and vomiting. Objective BP 141/63 (Patient Position: Sitting) Pulse 83 Physical Exam Cardiovascular: Rate and Rhythm: Normal rate and regular rhythm. Skin: Findings: Lesion present. Neurological: Mental Status: She is alert and oriented to person, place, and time. Assessment/Plan Problem List Items Addressed This Visit ICD-10-CM Primary hypertension - Primary I10 Relevant Medications losartan (Cozaar) 25 mg tablet Other Visit Diagnoses Codes HSV infection B00.9 Relevant Medications acyclovir (Zovirax) 5 % ointment HSV cold sore -Acyclovir ointment 5 times a day x 4 days HTN -Stop lisinopril and start losartan 25 mg daily documented in this [facility] Work Phone: 1(633) 833-284701-23-2025 History of Present illness Narrative* EUGENE Amaya - 09/01/2024 12:53 PM EST Pt reviewed during Care Rounds today and she is ready for discharge. Call placed to [facility]/Shanda Finnegan regarding pt's return there. There are no concerns with pt returning. She requested discharge information/new orders be reviewed with [place] [facility] staff member/Saumya Casillas.Discharge Nurse/Sonja mane. Call placed to [facility] and spoke to account services representative Diego Moseley regarding pt's discharge today. We reviewed the IM with no questions/concerns. Discharge bundle faxed to [facility] at [phone]. senior living to provide transport back home. No further needs identified. EUGENE Amaya * Jorge Roberts MD - 08/31/2024 7:48 PM EST Mik Shelton is a 79 y.o. female on day 1 of admission presenting with Angioedema of tongue. Subjective Tongue swelling improved Objective Physical Exam General Appearance: AAO x 0 Skin: skin color pink, warm, and dry; no suspicious rashes or lesions Eyes : PERRL, ENT: mucous membranes pink and moist, Neck: normocephalic Respiratory: lungs clear to auscultation anteriorly; no wheezing, rhonchi, or crackles. Heart: regular rate and rhythm. Abdomen: Nondistended, positive bowel sounds x4, soft, nontender Extremities: no edema Peripheral pulses: normal x4 extremities Neuro: Cerebral palsy and unable to communicate, nonverbal Last Recorded Vitals Blood pressure 146/62, pulse 106, temperature 36.3 C (97.3 F), temperature source Temporal, resp. rate 19, weight 50.3 kg (110 lb 14.3 oz), SpO2 98%. Intake/Output last 3 Shifts: I/O last 3 completed shifts: In: 1196.7 (23.8 mL/kg) [I.V.:296.7 (5.9 mL/kg); Blood:900] Out: 250 (5 mL/kg) [Urine:250 (0.1 mL/kg/hr)] Weight: 50.3 kg Relevant Results Scheduled medications ARIPiprazole, 10 mg, oral, Nightly carBAMazepine, 100 mg, oral, Daily diazePAM, 2.5 mg, g-tube, Daily docusate sodium, 50 mg, g-tube, Daily enoxaparin, 40 mg, subcutaneous, q24h famotidine, 20 mg, intravenous, q12h CAROL fluticasone, 2 spray, Each Nostril, Daily guaiFENesin, 100 mg, g-tube, Daily lamoTRIgine, 50 mg, oral, BID levothyroxine, 50 mcg, g-tube, Daily [START ON 09/01/2024] methylPREDNISolone sodium succinate (PF), 40 mg, intravenous, BID pravastatin, 20 mg, oral, Nightly sodium chloride, 1 g, g-tube, Daily tranexamic acid, 1,000 mg, intravenous, Once Continuous medications PRN medications PRN medications: acetaminophen OR acetaminophen OR acetaminophen, acetaminophen OR acetaminophen OR acetaminophen, bisacodyl, diphenhydrAMINE, ipratropium-albuteroL, ondansetron ODT OR ondansetron, oxygen Results for orders placed or performed during the hospital encounter of 08/30/24 (from the past 24 hours) Basic metabolic panel Result Value Ref Range Glucose 174 (H) 74 - 99 mg/dL Sodium 128 (L) 136 - 145 mmol/L Potassium 4.1 3.5 - 5.3 mmol/L Chloride 94 (L) 98 - 107 mmol/L Bicarbonate 26 21 - 32 mmol/L Anion Gap 12 10 - 20 mmol/L Urea Nitrogen 17 6 - 23 mg/dL Creatinine 0.72 0.50 - 1.05 mg/dL eGFR 85 >60 mL/min/1.73m*2 Calcium 8.3 (L) 8.6 - 10.3 mg/dL Comprehensive metabolic panel Result Value Ref Range Glucose 152 (H) 74 - 99 mg/dL Sodium 131 (L) 136 - 145 mmol/L Potassium 4.0 3.5 - 5.3 mmol/L Chloride 99 98 - 107 mmol/L Bicarbonate 24 21 - 32 mmol/L Anion Gap 12 10 - 20 mmol/L Urea Nitrogen 21 6 - 23 mg/dL Creatinine 0.74 0.50 - 1.05 mg/dL eGFR 82 >60 mL/min/1.73m*2 Calcium 8.1 (L) 8.6 - 10.3 mg/dL Albumin 3.6 3.4 - 5.0 g/dL Alkaline Phosphatase 58 33 - 136 U/L Total Protein 6.7 6.4 - 8.2 g/dL AST 15 9 - 39 U/L Bilirubin, Total 0.3 0.0 - 1.2 mg/dL ALT 15 7 - 45 U/L CBC Result Value Ref Range WBC 19.1 (H) 4.4 - 11.3 x10*3/uL nRBC 0.0 0.0 - 0.0 /100 WBCs RBC 3.07 (L) 4.00 - 5.20 x10*6/uL Hemoglobin 9.3 (L) 12.0 - 16.0 g/dL Hematocrit 28.1 (L) 36.0 - 46.0 % MCV 92 80 - 100 fL MCH 30.3 26.0 - 34.0 pg MCHC 33.1 32.0 - 36.0 g/dL RDW 12.8 11.5 - 14.5 % Platelets 349 150 - 450 x10*3/uL XR chest 1 view Result Date: 08/31/2024 Interpreted By: Lázaro Maya, STUDY: XR CHEST 1 VIEW 08/30/2024 9:35 pm INDICATION: Signs/Symptoms:Aspiration COMPARISON: 04/18/2024 ACCESSION NUMBER(S): [id number] ORDERING CLINICIAN: JORGE ROBERTS TECHNIQUE: A single AP portable radiograph of the chest was obtained. FINDINGS: Multiple cardiac monit oring leads are seen over the chest. No focal infiltrate, pleural effusion or pneumothorax is identified. The cardiac silhouette is within normal limits for size. No focal infiltrate or pneumothorax is identified. MACRO: None. Signed by: Lázaro Maya 08/31/2024 10:06 AM Dictation workstation: [id number] Assessment/Plan Assessment & Plan Angioedema of tongue 79-year-old female with history of Cerebral palsy Hypothyroidism Seizures Diabetes mellitus Presented with Angioedema Hyponatremia Plan Tongue swelling and angioedema improved Hemodynamically stable Maintaining vital saturations Nonverbal at baseline Pulse ox check okay Taper down steroids changed to methylprednisolone 40 Mg IV twice daily Benadryl, famotidine IV Hydrated with normal saline On salt tablets Sodium levels improving Continue antiseizure medicines Carbamazepine 100 Mg daily Lamotrigine 50 Mg p.o. 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 No Care Facility Name [facility] Who is requesting discharge planning? Provider Home or Post Acute Services In home services Type of Home Care Services Other (Comment) (Caregiver,aide,nurse legal guardian) Expected Discharge Disposition Othe (Return to [facility]) Does the patient need discharge transport arranged? Yes RoundTrip coordination needed? Yes Has discharge transport been arranged? No Met with pt at the bedside. Verified address, phone number and emergency contact information in thechart. PCP is Dr. Huizar and preferred pharmacy is [facility] or [facility]. Pt is completely dependent on the staff at the [place] [facility]. She is nonverbal, alert enough to follow you with her her eyes briefly. She does not follow commands. She is contracted on right arm and left hand with both feet dropped. She has a PEG tube. Lives at [facility]. Legal Guardian is [facility] -Alise Gibson [phone], director is Shanda Jones [phone], caregiver Saumya Gomez [phone]. [facility] 01/13 .ADOD 24 hrs. Care Transitions to follow. Adriane SERRANON/RN-TCC 1400 called and left a for Alise Gibson to confirm that they wanted her to return to [facility] upon discharge. Left my name and phone number also explained she could talk to anyone in theoffice. Adriane LANE/RN-TCC [facility] Work Phone: [phone]) 587-157901-23-2025 Nurse Note* Sonja Ortega RN - 09/01/2024 12:21 PM EST Discharge Note: 09/01/2024 1223 AVS reviewed with Saumya over phone and faxed to [phone] as requested. Notified time of 1300 for transport. Lawanda CAN [facility]01-23-2025 Nurse Note* Sonja Ortega RN - 09/01/2024 12:21 PM EST Discharge Note: 09/01/2024 1223 AVS reviewed with Saumya over phone and faxed to [phone] as requested. Notified time of 1300 for transport. Lawanda CAN * Gabriele Jacob RN - 08/31/2024 2:00 PM EST Pt's brief is clean and dry, wick in place. Pt appears calm and alert. * Gabriele Jacob RN - 08/31/2024 10:00 AM EST Pt resting quietly, turned. * Gabriele Jacob RN - 08/31/2024 8:00 AM EST Pt is alert and follows provider with her eyes. * Gabriele Jacob RN - 08/30/2024 6:00 PM EST Pt resting quietly in bed with her eyes closed, tongue appears less swollen and pt drooling less. PEG tube site is clean and flushes well. * Gabriele Jacob RN - 08/30/2024 3:43 PM EST Pt is resting quietly. * Gabriele Jacob RN - 08/30/2024 12:00 PM EST Pt transferred from ED cot to bed, Rm 332. Monitors applied, report received from facility staff. Pt is alert and follows people in the room when addressed, but non-verbal and soon stops following.Pt appears calm, but has continuous mouth movement and thin secretions. Tongue tip is enlarged, dark red, and protrudes from her mouth. Her breathing appears unlabored andeven. Pt's right arm is contracted as is her left hand. Both feet appear dropped. She does not or is not able to follow commands, but that appears to be baseline. No skin breakdown or bruising noted. documented in this [facility] Work Phone: [phone]) 871-475101-23-2025 Hospital course Narrative* Jorge Roberts MD - 09/01/2024 11:50 AM EST Discharge Diagnosis Angioedema of tongue Issues Requiring Follow-Up PCP Discharge Meds Medication List START taking these medications calcium carbonate-vitamin D3 600 mg-10 mcg (400 unit) tablet; Take 1 tablet by mouth 2 times a day. Daily-Catarina (with folic acid) 400 mcg tablet; Generic drug: multivitamin; Take 1 tablet by mouth once daily. docusate sodium 50 mg/5 mL oral liquid; Commonly known as: Colace; TAKE 10 mL per peg tube once daily CONTINUE taking these medications * acetaminophen 325 mg tablet; Commonly known as: Tylenol * acetaminophen 650 mg suppository; Commonly known as: Tylenol alendronate 70 mg tablet; Commonly known as: Fosamax; GIVE 1 TABLET BY MOUTH EVERY WEEK *30 MIN BEFORE 1ST FOOD/GAMAL/MED; AVOID LYING DOWN X30 MIN AFTER *SEND WK 1*; Notes to patient: Resume per weekly routine ARIPiprazole 10 mg tablet; Commonly known as: Abilify; GIVE 1 TABLET BY MOUTH DAILY AT BEDTIME *LEV 1 INTX W/CARBAMAZAPINE OK 07/31/21* bisacodyl 10 mg suppository; Commonly known as: Dulcolax calcium carbonate 600 mg calcium (1,500 mg) tablet; TAKE 1 TABLET BY MOUTH TWICE DAILY (NOON/7PM) *12PM WORKSHOP 2 CARDS: M-F/S-S*SS DENIED NOT UNDER CARE* carBAMazepine 100 mg chewable tablet; Commonly known as: TEGretol Chest Congestion Relief 100 mg/5 mL syrup; Generic drug: guaiFENesin; TAKE 10ML BY MOUTH EVERY 4 HOURS NEEEDED FOR COUGH *DR JAMES FOR REFILLS [phone]* cholecalciferol 50,000 unit capsule; Commonly known as: Vitamin D-3 cyanocobalamin 1,000 mcg tablet; Commonly known as: Vitamin B-12; Take 1 tablet (1,000 mcg) by mouth once daily. diazePAM 2 mg tablet; Commonly known as: Valium; GIVE 1/2 TABLET (1MG) PER PEG TUBE ONCE DAILY DX: ANXIETY ergocalciferol 1.25 MG (26276 UT) capsule; Commonly known as: Vitamin D-2 fluconazole 150 mg tablet; Commonly known as: Diflucan; Take 1 tablet (150 mg) by mouth once daily. hydrOXYzine HCL 25 mg tablet; Commonly known as: Atarax; GIVE 1 TABLET PER PEG TUBE THREE TIMES A DAY lamoTRIgine 25 mg disintegrating tablet; Commonly known as: LaMICtal levothyroxine 50 mcg tablet; Commonly known as: Synthroid, Levoxyl; GIVE 1 TABLET BY PEG TUBE ONCE DAILY DX: HYPOTHYROIDISM lovastatin 20 mg tablet; Commonly known as: Mevacor; GIVE 1 TABLET BY MOUTH EVERY EVENING BY PEG TUBE melatonin 10 mg tablet; Take 1 tablet (10 mg) by mouth once daily. metFORMIN XR 500 mg 24 hr tablet; Commonly known as: Glucophage-XR; Take 1 tablet (500 mg) by mouth once daily in the evening. Take with meals. sodium chloride 1,000 mg tablet; GIVE 1 TABLET PER G-TUBE ONCE DAILY * This list has 2 medication(s) that are the same as other medications prescribed for you. Read the directions carefully, and ask your doctor or other care provider to review them with you. STOP taking these medications lisinopril 20 mg tablet Test Results Pending At Discharge Pending Labs No current pending labs. Hospital Course 79-year-old female with history of Cerebral palsy Hypothyroidism Seizures Diabetes mellitus Presented with Angioedema, enlarged tongue and swelling edema protruding with tongue bite but no active seizures or at least witnessed. No fever chills neck stiffness or stridor or hoarseness of voice or worsening swelling anywhere else in the body. Patient hemodynamically stable and protecting airways maintaining vital saturations. No hypertension. No bleeding from anywhere. No bowel or bladder incontinence. No cough or runny nose. Patient on lisinopril but on it for few months per discussion with caregiver.No new medicine recently. No wheezing. Slight blood noted on tongue from injury from teeth teeth bite. No nausea vomiting diarrhea or cough. he was given Benadryl, IV Decadron, Pepcid as well FFP x 2units as well icatibant and tranexamic acid. No tonic myoclonic jerking movements or frothy secretions. No skin rashes Hyponatremia, on salt tablets Patient was admitted to ICU Pulse ox and vitals were monitored closely Neb treatments and supportive care as deemed appropriate Patient was maintained on steroids methylprednisolone 40 Mg IV every 6 hours and reduced to twice daily and swelling has completely gone angioedema resolved. As a matter of caution, still holding lisinopril even if she was taking for quite a while, seems to be main culprit apparently. She is at baseline. Hemodynamics stable and maintaining ABCs. She was given Benadryl famotidine IV along with steroids. Did not have any more reaction or anaphylaxis. Hydrated well and sodium levels improved. Lovenox for DVT Prophylaxis Continued Retirement Medicines Including Statins, Antiseizure Medicines Lamotrigine, Carbamazepine.Symptomatic Management Was provided. Antiemetics as necessary. Continued on psych medicines including Abilify, Valium. She is on Synthroid for hypothyroidism chest x-ray did not show aspiration or pneumonia. No signs of infection at present. Patient completely at baseline and asymptomatic. [facility] Resume all previous medicines as reconciled and ongoing reconciliation by PCP. Pertinent Physical Exam At Time of Discharge Physical Exam General Appearance: AAO x 0 Skin: skin color pink, warm, and dry; no suspicious rashes or lesions Eyes : PERRL, ENT: mucous membranes pink and moist, Neck: normocephalic Respiratory: lungs clear to auscultation anteriorly; no wheezing, rhonchi, or crackles. Heart: regular rate and rhythm. Abdomen: Nondistended, positive bowel sounds x4, soft, nontender Extremities: no edema Peripheral pulses: normal x4 extremities Neuro: Cerebral palsy and unable to communicate, nonverbal Time to dc > 35 mins Jorge Roberts MD [facility] Work Phone: [phone]) 820-417101-23-2025 Plan of care note* Care Plan - Katherine Lion RN - 09/01/2024 11:34 AM EST The patient's goals for the shift include The clinical goals for the shift include rest Problem: Skin Goal: Prevent/manage excess moisture Outcome: Progressing Goal: Prevent/minimize sheer/friction injuries Outcome: Progressing Goal: Promote/optimize nutrition Outcome: Progressing Goal: Promote skin healing Outcome: Progressing Problem: Safety - Adult Goal: Free from fall injury Outcome: Progressing Problem: Chronic Conditions and Co-morbidities Goal: Patient's chronic conditions and co-morbidity symptoms are monitored and maintained or improved Outcome: Progressing [facility] Miscellaneous Notes* Care Plan - Katherine Lion RN - 09/01/2024 11:34 AM EST The patient's goals for the shift include The clinical goals for the shift include rest Problem: Skin Goal: Prevent/manage excess moisture Outcome: Progressing Goal: Prevent/minimize sheer/friction injuries Outcome: Progressing Goal: Promote/optimize nutrition Outcome: Progressing Goal: Promote skin healing Outcome: Progressing Problem: Safety - Adult Goal: Free from fall injury Outcome: Progressing Problem: Chronic Conditions and Co-morbidities Goal: Patient's chronic conditions and co-morbidity symptoms are monitored and maintained or improved Outcome: Progressing * Care Plan - Precious Bishop RN - 09/01/2024 6:51 AM EST Problem: Skin Goal: Prevent/manage excess moisture Outcome: Progressing Goal: Prevent/minimize sheer/friction injuries Outcome: Progressing Goal: Promote/optimize nutrition Outcome: Progressing Goal: Promote skin healing Outcome: Progressing Problem: Safety - Adult Goal: Free from fall injury Outcome: Progressing Problem: Chronic Conditions and Co-morbidities Goal: Patient's chronic conditions and co-morbidity symptoms are monitored and maintained or improved Outcome: Progressing The patient's goals for the shift include The clinical goals for the shift include rest Over the shift, the patient did not make progress toward the following goals. Barriers to progression include . Recommendations to address these barriers include . * Care Plan - Gabriele Jacob RN - 08/31/2024 3:49 PM EST The patient's goals for the shift include n/a (pt non-verbal). The clinical goals for the shift include Patient's neuro status will remain at baseline and SPO2 >90%. * Care Plan - Twyla Ayers RN - 08/31/2024 6:56 AM EST The patient's goals for the shift include The clinical goals for the shift include Patient's neuro status will remain at baseline and SPO2 >90%. . Problem: Skin Goal: Prevent/manage excess moisture Outcome: Progressing Goal: Prevent/minimize sheer/friction injuries 08/31/2024 0656 by Twyla Ayers RN Outcome: Progressing Flowsheets (Taken 08/31/2024 0656) Prevent/minimize sheer/friction injuries: Complete micro-shifts as needed if patient unable. Adjust patient position to relieve pressure points, not a full turn HOB 30 degrees or less Turn/reposition every 2 hours/use positioning/transfer devices 08/31/2024 0655 by Twyla Ayers RN Outcome: Progressing Goal: Promote/optimize nutrition Outcome: Progressing Goal: Promote skin healing Outcome: Progressing * Care Plan - Twyla Ayers RN - 08/31/2024 6:55 AM EST Problem: Skin Goal: Prevent/manage excess moisture Outcome: Progressing Goal: Prevent/minimize sheer/friction injuries Outcome: Progressing Goal: Promote/optimize nutrition Outcome: Progressing Goal: Promote skin healing Outcome: Progressing Problem: Safety - Adult Goal: Free from fall injury Outcome: Progressing Problem: Chronic Conditions and Co-morbidities Goal: Patient's chronic conditions and co-morbidity symptoms are monitored and maintained or improved Outcome: Progressing The patient's goals for the shift include The clinical goals for the shift include Patient's neuro status will remain at baseline and SPO2 >90%. * Care Plan - Twyla Ayers RN - 08/31/2024 6:52 AM EST The patient's goals for the shift include The clinical goals for the shift include Patient's neuro status will remain at baseline and SPO2 >90%. [facility] Work Phone: [phone]) 587-584001-23-2025 Plan of care note* Care Plan - Precious Bishop RN - 09/01/2024 6:51 AM EST Problem: Skin Goal: Prevent/manage excess moisture Outcome: Progressing Goal: Prevent/minimize sheer/friction injuries Outcome: Progressing Goal: Promote/optimize nutrition Outcome: Progressing Goal: Promote skin healing Outcome: Progressing Problem: Safety - Adult Goal: Free from fall injury Outcome: Progressing Problem: Chronic Conditions and Co-morbidities Goal: Patient's chronic conditions and co-morbidity symptoms are monitored and maintained or improved Outcome: Progressing The patient's goals for the shift include The clinical goals for the shift include rest Over the shift, the patient did not make progress toward the following goals. Barriers to progression include . Recommendations to address these barriers include . [facility] Plan of care note* Care Plan - Gabriele Jacob RN - 08/31/2024 3:49 PM EST The patient's goals for the shift include n/a (pt non-verbal). The clinical goals for the shift include Patient's neuro status will remain at baseline and SPO2 >90%. [facility] Work Phone: [phone]) 899-122901-22-2025 Consult note* Shayy Holland RDN, LD - 08/31/2024 2:52 PM ESTAssociated Order(s): IP CONSULT TO NUTRITION SERVICES Nutrition Initial Assessment: Nutrition Assessment Reason for Assessment: Admission nursing screening Patient is a 79 y.o. female presenting with angioedema of tongue. Past Medical History: Diagnosis Date Cerebral palsy Diabetes mellitus (Multi) Hypothyroidism Psychiatric disorder Seizures (Multi) Nutrition History: Energy Intake: Poor < 50 % Food and Nutrient History: pt nonverbal unable to provide any hx at this time. no family at bedside. per EMR, last PCP note, pt refuses to eat at times. pt recieves 4 bolus feeds per day and has po for pleasure. Anthropometrics: Weight History: Wt Readings from Last 10 Encounters: 07/25/24 50.3 kg (111 lb) 06/27/24 50.3 kg (111 lb) 04/22/24 50.5 kg (111 lb 5.3 oz) 12/09/23 49.7 kg (109 lb 8 oz) 10/05/23 54.2 kg (119 lb 8 oz) Weight Change %: Weight History / % Weight Change: weight loss not significant at this time per emr. weight has beenstable over the last 3-4 months. no weight on admission. last weight >1 month ago in EMR Significant Weight Loss: No Nutrition Focused Physical Exam Findings: Subcutaneous Fat Loss: Defer Subcutaneous Fat Loss Assessment: Defer all Defer All Reason: d/t pt unable to participate Muscle Wasting: Defer Muscle Wasting Assessment: Defer all Defer All Reason: d/t pt unable to participate Edema: none Physical Findings: Nutrition Significant Labs: CBC Trend: Results from last 7 days Lab Units 08/31/24 0552 08/30/24 0648 WBC AUTO x10*3/uL 19.1* 20.7* RBC AUTO x10*6/uL 3.07* 3.85* HEMOGLOBIN g/dL 9.3* 11.7* HEMATOCRIT % 28.1* 34.4* MCV fL 92 89 PLATELETS AUTO x10*3/uL 349 425 , BMP Trend: Results from last 7 days Lab Units 08/31/24 0551 08/30/24 2143 08/30/24 0648 08/26/24 0727 GLUCOSE mg/dL 152* 174* 176* 186* CALCIUM mg/dL 8.1* 8.3* 9.0 8.5* SODIUM mmol/L 131* 128* 120* 119* POTASSIUM mmol/L 4.0 4.1 4.6 4.7 CO2 mmol/L 24 26 27 26 CHLORIDE mmol/L 99 94* 85* 83* BUN mg/dL 21 17 20 23 CREATININE mg/dL 0.74 0.72 0.68 0.62 , A1C: Lab Results Component Value Date HGBA1C 6.0 (H) 06/27/2024 Nutrition Specific Medications: ARIPiprazole, 10 mg, oral, Nightly carBAMazepine, 100 mg, oral, Daily diazePAM, 2.5 mg, g-tube, Daily docusate sodium, 50 mg, g-tube, Daily enoxaparin, 40 mg, subcutaneous, q24h famotidine, 20 mg, intravenous, q12h CAROL fluticasone, 2 spray, Each Nostril, Daily guaiFENesin, 100 mg, g-tube, Daily lamoTRIgine, 50 mg, oral, BID levothyroxine, 50 mcg, g-tube, Daily methylPREDNISolone sodium succinate (PF), 40 mg, intravenous, q6h pravastatin, 20 mg, oral, Nightly sodium chloride, 1 g, g-tube, Daily tranexamic acid, 1,000 mg, intravenous, Once I/O: ; Dietary Orders (From admission, onward) Start Ordered 08/30/24 1348 May Not Participate in Room Service ( ROOM SERVICE MAY NOT PARTICIPATE) Once Question: . Answer: Yes 08/30/24 1347 08/30/24 1156 NPO Diet; Effective now Diet effective now 08/30/24 1155 Estimated Needs: Total Energy Estimated Needs in 24 hours (kCal): (3656-2102) Method for Estimating Needs: 25-30kcals/kg abw Total Protein Estimated Needs in 24 Hours (g): (50-60) Method for Estimating 24 Hour Protein Needs: 1.0-1.2g/kg Total Fluid Estimated Needs in 24 Hours (mL): (9363-9818) Method for Estimating 24 Hour Fluid Needs: 1 ml/kcal Nutrition Diagnosis Malnutrition Diagnosis Patient has Malnutrition Diagnosis: No Nutrition Diagnosis Patient has Nutrition Diagnosis: Yes Diagnosis Status (1): New Nutrition Diagnosis 1: Predicted inadequate energy intake Related to (1): CP As Evidenced by (1): need for peg tube for full nutrition Nutrition Interventions/Recommendations Nutrition prescription for oral nutrition, Nutrition prescription for enteral nutrition Nutrition Recommendations: Individualized Nutrition Prescription Provided for : advance diet/initiate nutrition support to meet patient protein and calorie needs Nutrition Interventions/Goals: Interventions: Enteral intake Enteral Intake: Management of delivery rate of enteral nutrition Goal: jevity 1.5 via peg to start at 20ml/hr advancing as appropriate q6 to goal rate of 40 ml/hr to provide 1500 kcals, 63.8g of protein, and 760 ml free water. Goal: attend daily rounds Education Documentation No documentation found. Nutrition Monitoring and Evaluation Food/Nutrient Related History Monitoring Monitoring and Evaluation Plan: Intake / amount of food, Enteral and parenteral nutrition intake determination Intake / Amount of food: Consumes at least 50% or more of meals/snacks/supplements Enteral and Parenteral Nutrition Intake Determination: (initiation of TF and tolerance) Anthropometric Measurements Monitoring and Evaluation Plan: Body weight, Body weight change Body Weight Change: Body weight gain - Gradual weight gain, Body weight loss - Gradual weight loss Biochemical Data, Medical Tests and Procedures Monitoring and Evaluation Plan: Electrolyte/renal panel, GI profile Electrolyte and Renal Panel: Electrolytes within normal limits Goal Status: New goal(s) identified Time Spent (min): 60 minutes 08/31/24 at 3:09 PM - SHAYY HOLLAND RDN, LD [facility]01-22-2025 Consult note* Shayy Holland RDN, LD - 08/31/2024 2:52 PM ESTAssociated Order(s): IP CONSULT TO NUTRITION SERVICES Nutrition Initial Assessment: Nutrition Assessment Reason for Assessment: Admission nursing screening Patient is a 79 y.o. female presenting with angioedema of tongue. Past Medical History: Diagnosis Date Cerebral palsy Diabetes mellitus (Multi) Hypothyroidism Psychiatric disorder Seizures (Multi) Nutrition History: Energy Intake: Poor < 50 % Food and Nutrient History: pt nonverbal unable to provide any hx at this time. no family at bedside. per EMR, last PCP note, pt refuses to eat at times. pt recieves 4 bolus feeds per day and has po for pleasure. Anthropometrics: Weight History: Wt Readings from Last 10 Encounters: 07/25/24 50.3 kg (111 lb) 06/27/24 50.3 kg (111 lb) 04/22/24 50.5 kg (111 lb 5.3 oz) 12/09/23 49.7 kg (109 lb 8 oz) 10/05/23 54.2 kg (119 lb 8 oz) Weight Change %: Weight History / % Weight Change: weight loss not significant at this time per emr. weight has beenstable over the last 3-4 months. no weight on admission. last weight >1 month ago in EMR Significant Weight Loss: No Nutrition Focused Physical Exam Findings: Subcutaneous Fat Loss: Defer Subcutaneous Fat Loss Assessment: Defer all Defer All Reason: d/t pt unable to participate Muscle Wasting: Defer Muscle Wasting Assessment: Defer all Defer All Reason: d/t pt unable to participate Edema: none Physical Findings: Nutrition Significant Labs: CBC Trend: Results from last 7 days Lab Units 08/31/24 0552 08/30/24 0648 WBC AUTO x10*3/uL 19.1* 20.7* RBC AUTO x10*6/uL 3.07* 3.85* HEMOGLOBIN g/dL 9.3* 11.7* HEMATOCRIT % 28.1* 34.4* MCV fL 92 89 PLATELETS AUTO x10*3/uL 349 425 , BMP Trend: Results from last 7 days Lab Units 08/31/24 0551 08/30/24 2143 08/30/24 0648 08/26/24 0727 GLUCOSE mg/dL 152* 174* 176* 186* CALCIUM mg/dL 8.1* 8.3* 9.0 8.5* SODIUM mmol/L 131* 128* 120* 119* POTASSIUM mmol/L 4.0 4.1 4.6 4.7 CO2 mmol/L 24 26 CHLORIDE mmol/L 99 94* 85* 83* BUN mg/dL 17 20 23 CREATININE mg/dL 0.74 0.72 0.68 0.62 , A1C: Lab Results Component Value Date HGBA1C 6.0 (H) 06/27/2024 Nutrition Specific Medications: ARIPiprazole, 10 mg, oral, Nightly carBAMazepine, 100 mg, oral, Daily diazePAM, 2.5 mg, g-tube, Daily docusate sodium, 50 mg, g-tube, Daily enoxaparin, 40 mg, subcutaneous, q24h famotidine, 20 mg, intravenous, q12h CAROL fluticasone, 2 spray, Each Nostril, Daily guaiFENesin, 100 mg, g-tube, Daily lamoTRIgine, 50 mg, oral, BID levothyroxine, 50 mcg, g-tube, Daily methylPREDNISolone sodium succinate (PF), 40 mg, intravenous, q6h pravastatin, 20 mg, oral, Nightly sodium chloride, 1 g, g-tube, Daily tranexamic acid, 1,000 mg, intravenous, Once I/O: ; Dietary Orders (From admission, onward) Start Ordered 08/30/24 1348 May Not Participate in Room Service ( ROOM SERVICE MAY NOT PARTICIPATE) Once Question: . Answer: Yes 08/30/24 1347 08/30/24 1156 NPO Diet; Effective now Diet effective now 08/30/24 1155 Estimated Needs: Total Energy Estimated Needs in 24 hours (kCal): (9369-1158) Method for Estimating Needs: 25-30kcals/kg abw Total Protein Estimated Needs in 24 Hours (g): (50-60) Method for Estimating 24 Hour Protein Needs: 1.0-1.2g/kg Total Fluid Estimated Needs in 24 Hours (mL): (3577-5852) Method for Estimating 24 Hour Fluid Needs: 1 ml/kcal Nutrition Diagnosis Malnutrition Diagnosis Patient has Malnutrition Diagnosis: No Nutrition Diagnosis Patient has Nutrition Diagnosis: Yes Diagnosis Status (1): New Nutrition Diagnosis 1: Predicted inadequate energy intake Related to (1): CP As Evidenced by (1): need for peg tube for full nutrition Nutrition Interventions/Recommendations Nutrition prescription for oral nutrition, Nutrition prescription for enteral nutrition Nutrition Recommendations: Individualized Nutrition Prescription Provided for : advance diet/initiate nutrition support to meet patient protein and calorie needs Nutrition Interventions/Goals: Interventions: Enteral intake Enteral Intake: Management of delivery rate of enteral nutrition Goal: jevity 1.5 via peg to start at 20ml/hr advancing as appropriate q6 to goal rate of 40 ml/hr to provide 1500 kcals, 63.8g of protein, and 760 ml free water. Goal: attend daily rounds Education Documentation No documentation found. Nutrition Monitoring and Evaluation Food/Nutrient Related History Monitoring Monitoring and Evaluation Plan: Intake / amount of food, Enteral and parenteral nutrition intake determination Intake / Amount of food: Consumes at least 50% or more of meals/snacks/supplements Enteral and Parenteral Nutrition Intake Determination: (initiation of TF and tolerance) Anthropometric Measurements Monitoring and Evaluation Plan: Body weight, Body weight change Body Weight Change: Body weight gain - Gradual weight gain, Body weight loss - Gradual weight loss Biochemical Data, Medical Tests and Procedures Monitoring and Evaluation Plan: Electrolyte/renal panel, GI profile Electrolyte and Renal Panel: Electrolytes within normal limits Goal Status: New goal(s) identified Time Spent (min): 60 minutes 08/31/24 at 3:09 PM - SHAYY HOLLAND RDN, LD * Nissa Haas DO - 08/31/2024 11:53 AM ESTAssociated Order(s): IP CONSULT TO NEPHROLOGY Reason For Consult Angioedema History Of Present Illness Mik Shelton is a 79 y.o. female presenting with tongue swelling. She presented to the emergency room secondary to enlarged tongue and swelling. It also appears thatshe bit her tongue. Apparently these symptoms started the night before she presented. I was asked to see her secondary to angioedema I saw her this a.m. she is resting comfortably in bed She is nonverbal and does not answer any questions She seems to have improved from reports and at this time as much as I can tell because she is really not able to follow commands very well her mouth appears fairly normal. Past Medical History She has a past medical history of Cerebral palsy, Diabetes mellitus (Multi), Hypothyroidism, Psychiatric disorder, and Seizures (Multi). Surgical History She has no past surgical history on file. Social History She reports that she has never smoked. She has never used smokeless tobacco. She reports that she does not currently use alcohol. She reports that she does not use drugs. Family History Family History Family history unknown: Yes Allergies Amoxicillin, Ampicillin, and Penicillin Review of Systems A full 10 point review of systems is not able to be obtained as she is not able to answer questionsfor me Physical Exam Physical Exam Constitutional: Appearance: Normal appearance. HENT: Head: Normocephalic and atraumatic. Right Ear: External ear normal. Left Ear: External ear normal. Nose: Nose normal. Mouth/Throat: Mouth: Mucous membranes are moist. Pharynx: Oropharynx is clear. Eyes: Extraocular Movements: Extraocular movements intact. Conjunctiva/sclera: Conjunctivae normal. Pupils: Pupils are equal, round, and reactive to light. Cardiovascular: Rate and Rhythm: Normal rate and regular rhythm. Pulmonary: Effort: Pulmonary effort is normal. Breath sounds: Normal breath sounds. Abdominal: General: Abdomen is flat. Palpations: Abdomen is soft. Comments: PEG tube present Skin: General: Skin is warm and dry. Neurological: Mental Status: She is alert. I&O 24HR Intake/Output Summary (Last 24 hours) at 08/31/2024 1153 Last data filed at 08/31/2024 0025 Gross per 24 hour Intake 296.67 ml Output 250 ml Net 46.67 ml Vitals 24HR Heart Rate: [88-130] Temp: [36.2 C (97.2 F)-37 C (98.6 F)] Resp: [14-25] BP: (101-161)/(39-93) SpO2: [88 %-100 %] Scheduled medications ARIPiprazole, 10 mg, oral, Nightly carBAMazepine, 100 mg, oral, Daily diazePAM, 2.5 mg, g-tube, Daily docusate sodium, 50 mg, g-tube, Daily enoxaparin, 40 mg, subcutaneous, q24h famotidine, 20 mg, intravenous, q12h CAROL fluticasone, 2 spray, Each Nostril, Daily guaiFENesin, 100 mg, g-tube, Daily lamoTRIgine, 50 mg, oral, BID levothyroxine, 50 mcg, g-tube, Daily methylPREDNISolone sodium succinate (PF), 40 mg, intravenous, q6h pravastatin, 20 mg, oral, Nightly sodium chloride, 1 g, g-tube, Daily tranexamic acid, 1,000 mg, intravenous, Once Continuous medications sodium chloride 0.9%, 100 mL/hr, Last Rate: 100 mL/hr (08/31/24 0441) PRN medications PRN medications: acetaminophen OR acetaminophen OR acetaminophen, acetaminophen OR acetaminophen OR acetaminophen, bisacodyl, diphenhydrAMINE, ipratropium-albuteroL, ondansetron ODT OR ondansetron, oxygen Relevant Results Results reviewed Assessment/Plan Tongue swelling and lip swelling that has now resolved Hyponatremia: Improving Cerebral palsy Hyperthyroidism History of seizure disorder Plan: At this time her tongue appears fairly normal on exam as much as I can tell It does appear that she did bite her tongue She is on IV steroids which can be de-escalated from my standpoint Transfer to floor From my standpoint she seems to be pretty much at her baseline Thanks for the consult Please call with any further issues or needs Assessment & Plan Angioedema of tongue Nissa Haas DO documented in this [facility] Work Phone: 1(199) 999-897201-22-2025 Nurse Note* Gabriele Jacob RN - 08/31/2024 2:00 PM EST Pt's brief is clean and dry, wick in place. Pt appears calm and alert. [facility] Work Phone: [phone] 490-244801-22-2025 Consult note* Nissa Haas DO - 08/31/2024 11:53 AM ESTAssociated Order(s): IP CONSULT TO NEPHROLOGY Reason For Consult Angioedema History Of Present Illness Mik Shelton is a 79 y.o. female presenting with tongue swelling. She presented to the emergency room secondary to enlarged tongue and swelling. It also appears thatshe bit her tongue. Apparently these symptoms started the night before she presented. I was asked to see her secondary to angioedema I saw her this a.m. she is resting comfortably in bed She is nonverbal and does not answer any questions She seems to have improved from reports and at this time as much as I can tell because she is really not able to follow commands very well her mouth appears fairly normal. Past Medical History She has a past medical history of Cerebral palsy, Diabetes mellitus (Multi), Hypothyroidism, Psychiatric disorder, and Seizures (Multi). Surgical History She has no past surgical history on file. Social History She reports that she has never smoked. She has never used smokeless tobacco. She reports that she does not currently use alcohol. She reports that she does not use drugs. Family History Family History Family history unknown: Yes Allergies Amoxicillin, Ampicillin, and Penicillin Review of Systems A full 10 point review of systems is not able to be obtained as she is not able to answer questionsfor me Physical Exam Physical Exam Constitutional: Appearance: Normal appearance. HENT: Head: Normocephalic and atraumatic. Right Ear: External ear normal. Left Ear: External ear normal. Nose: Nose normal. Mouth/Throat: Mouth: Mucous membranes are moist. Pharynx: Oropharynx is clear. Eyes: Extraocular Movements: Extraocular movements intact. Conjunctiva/sclera: Conjunctivae normal. Pupils: Pupils are equal, round, and reactive to light. Cardiovascular: Rate and Rhythm: Normal rate and regular rhythm. Pulmonary: Effort: Pulmonary effort is normal. Breath sounds: Normal breath sounds. Abdominal: General: Abdomen is flat. Palpations: Abdomen is soft. Comments: PEG tube present Skin: General: Skin is warm and dry. Neurological: Mental Status: She is alert. I&O 24HR Intake/Output Summary (Last 24 hours) at 08/31/2024 1153 Last data filed at 08/31/2024 0025 Gross per 24 hour Intake 296.67 ml Output 250 ml Net 46.67 ml Vitals 24HR Heart Rate: [88-130] Temp: [36.2 C (97.2 F)-37 C (98.6 F)] Resp: [14-25] BP: (101-161)/(39-93) SpO2: [88 %-100 %] Scheduled medications ARIPiprazole, 10 mg, oral, Nightly carBAMazepine, 100 mg, oral, Daily diazePAM, 2.5 mg, g-tube, Daily docusate sodium, 50 mg, g-tube, Daily enoxaparin, 40 mg, subcutaneous, q24h famotidine, 20 mg, intravenous, q12h CAROL fluticasone, 2 spray, Each Nostril, Daily guaiFENesin, 100 mg, g-tube, Daily lamoTRIgine, 50 mg, oral, BID levothyroxine, 50 mcg, g-tube, Daily methylPREDNISolone sodium succinate (PF), 40 mg, intravenous, q6h pravastatin, 20 mg, oral, Nightly sodium chloride, 1 g, g-tube, Daily tranexamic acid, 1,000 mg, intravenous, Once Continuous medications sodium chloride 0.9%, 100 mL/hr, Last Rate: 100 mL/hr (08/31/24 0441) PRN medications PRN medications: acetaminophen OR acetaminophen OR acetaminophen, acetaminophen OR acetaminophen OR acetaminophen, bisacodyl, diphenhydrAMINE, ipratropium-albuteroL, ondansetron ODT OR ondansetron, oxygen Relevant Results Results reviewed Assessment/Plan Tongue swelling and lip swelling that has now resolved Hyponatremia: Improving Cerebral palsy Hyperthyroidism History of seizure disorder Plan: At this time her tongue appears fairly normal on exam as much as I can tell It does appear that she did bite her tongue She is on IV steroids which can be de-escalated from my standpoint Transfer to floor From my standpoint she seems to be pretty much at her baseline Thanks for the consult Please call with any further issues or needs Assessment & Plan Angioedema of tongue Nissa Haas DO [facility] Work Phone: [phone]) 399-190601-22-2025 Nurse Note* Gabriele Jacob RN - 08/31/2024 10:00 AM EST Pt resting quietly, turned. [facility] Work Phone: [phone] Nurse Note* Gabriele Jacob RN - 08/31/2024 8:00 AM EST Pt is alert and follows provider with her eyes. [facility] Work Phone: [phone] 107-524801-22-2025 Plan of care note* Care Plan - Twyla Ayers RN - 08/31/2024 6:56 AM EST The patient's goals for the shift include The clinical goals for the shift include Patient's neuro status will remain at baseline and SPO2 >90%. . Problem: Skin Goal: Prevent/manage excess moisture Outcome: Progressing Goal: Prevent/minimize sheer/friction injuries 08/31/2024 0656 by Twyla Ayers RN Outcome: Progressing Flowsheets (Taken 08/31/2024 0656) Prevent/minimize sheer/friction injuries: Complete micro-shifts as needed if patient unable. Adjust patient position to relieve pressure points, not a full turn HOB 30 degrees or less Turn/reposition every 2 hours/use positioning/transfer devices 08/31/2024 0655 by Twyla Ayers RN Outcome: Progressing Goal: Promote/optimize nutrition Outcome: Progressing Goal: Promote skin healing Outcome: Progressing [facility]01-22-2025 Plan of care note* Care Plan - Twyla Ayers RN - 08/31/2024 6:55 AM EST Problem: Skin Goal: Prevent/manage excess moisture Outcome: Progressing Goal: Prevent/minimize sheer/friction injuries Outcome: Progressing Goal: Promote/optimize nutrition Outcome: Progressing Goal: Promote skin healing Outcome: Progressing Problem: Safety - Adult Goal: Free from fall injury Outcome: Progressing Problem: Chronic Conditions and Co-morbidities Goal: Patient's chronic conditions and co-morbidity symptoms are monitored and maintained or improved Outcome: Progressing The patient's goals for the shift include The clinical goals for the shift include Patient's neuro status will remain at baseline and SPO2 >90%. [facility] Work Phone: 1(251) 629-548401-22-2025 Plan of care note* Care Plan - Twyla Ayers RN - 08/31/2024 6:52 AM EST The patient's goals for the shift include The clinical goals for the shift include Patient's neuro status will remain at baseline and SPO2 >90%. [facility] Work Phone: [phone] 316-973701-21-2025 History and physical note* Jorge Roberts MD - 08/30/2024 9:28 PM EST History Of Present Illness Mik Shelton is a 79 y.o. female presenting with enlarged tongue and swelling edema protruding with tongue bite but no active seizures or at least witnessed. Symptoms started last night around 10 PM and patient brought in here from [place] [facility]. She has cerebral palsy and unable to give any history. Discussed with caregiver at bedside. No fever chills neck stiffness or stridor or hoarseness of voiceor worsening swelling anywhere else in the body. Patient hemodynamically stable and protecting airways maintaining vital saturations. No hypertension. No bleeding from anywhere. No bowel or bladder incontinence. No cough or runny nose. Patient on lisinopril but on it for few months per discussion with caregiver. No new medicine recently. No wheezing. Slight blood noted on tongue from injury from teeth teeth bite. No nausea vomiting diarrhea or cough. Unable to obtain any further history. Patient has hyponatremia. Leukocytosis noted. She was given Benadryl, IV Decadron, Pepcid as well FFP x 2 units as well icatibant and tranexamic acid. No tonic myoclonic jerking movements or frothy secretions. No skin rashes Past Medical History Past Medical History: Diagnosis Date Cerebral palsy Diabetes mellitus (Multi) Hypothyroidism Psychiatric disorder Seizures (Multi) Cerebral palsy Hypothyroidism Seizures Diabetes mellitus Surgical History No past surgical history on file. Social History She reports that she has never smoked. She has never used smokeless tobacco. She reports that she does not currently use alcohol. She reports that she does not use drugs. Unable to obtain at this time Family History Family History Family history unknown: Yes Unable to obtain at this time Allergies Amoxicillin, Ampicillin, and Penicillin Review of Systems All other 12 point review of systems negative except HPI Physical Exam General Appearance: AAO x 0 Skin: skin color pink, warm, and dry; no suspicious rashes or lesions Eyes : PERRL, ENT: mucous membranes pink and moist, tongue swelling edema Neck: normocephalic Respiratory: lungs clear to auscultation anteriorly; no wheezing, rhonchi, or crackles. Heart: regular rate and rhythm. Abdomen: Nondistended, positive bowel sounds x4, soft, nontender Extremities: no edema Peripheral pulses: normal x4 extremities Neuro: Cerebral palsy and unable to communicate, nonverbal Last Recorded Vitals Blood pressure (!) 126/93, pulse 98, temperature 37 C (98.6 F), temperature source Temporal, resp. rate 16, SpO2 95%. Relevant Results Scheduled medications ARIPiprazole, 10 mg, oral, Nightly carBAMazepine, 100 mg, oral, Daily diazePAM, 2.5 mg, g-tube, Daily docusate sodium, 50 mg, g-tube, Daily enoxaparin, 40 mg, subcutaneous, q24h famotidine, 20 mg, intravenous, q12h CAROL fluticasone, 2 spray, Each Nostril, Daily guaiFENesin, 100 mg, g-tube, Daily lamoTRIgine, 50 mg, oral, BID levothyroxine, 50 mcg, g-tube, Daily methylPREDNISolone sodium succinate (PF), 40 mg, intravenous, q6h pravastatin, 20 mg, oral, Nightly sodium chloride, 1 g, g-tube, Daily tranexamic acid, 1,000 mg, intravenous, Once Continuous medications sodium chloride 0.9%, 125 mL/hr, Last Rate: 125 mL/hr (08/30/24 0758) sodium chloride 0.9%, 100 mL/hr, Last Rate: 100 mL/hr (08/30/24 1850) PRN medications PRN medications: acetaminophen OR acetaminophen OR acetaminophen, acetaminophen OR acetaminophen OR acetaminophen, bisacodyl, diphenhydrAMINE, ipratropium-albuteroL, ondansetron ODT OR ondansetron, oxygen Results for orders placed or performed during the hospital encounter of 08/30/24 (from the past 24 hours) CBC and Auto Differential Result Value Ref Range WBC 20.7 (H) 4.4 - 11.3 x10*3/uL nRBC 0.0 0.0 - 0.0 /100 WBCs RBC 3.85 (L) 4.00 - 5.20 x10*6/uL Hemoglobin 11.7 (L) 12.0 - 16.0 g/dL Hematocrit 34.4 (L) 36.0 - 46.0 % MCV 89 80 - 100 fL MCH 30.4 26.0 - 34.0 pg MCHC 34.0 32.0 - 36.0 g/dL RDW 12.5 11.5 - 14.5 % Platelets 425 150 - 450 x10*3/uL Neutrophils % 87.6 40.0 - 80.0 % Immature Granulocytes %, Automated 0.6 0.0 - 0.9 % Lymphocytes % 6.0 13.0 - 44.0 % Monocytes % 5.0 2.0 - 10.0 % Eosinophils % 0.6 0.0 - 6.0 % Basophils % 0.2 0.0 - 2.0 % Neutrophils Absolute 18.12 (H) 1.60 - 5.50 x10*3/uL Immature Granulocytes Absolute, Automated 0.12 0.00 - 0.50 x10*3/uL Lymphocytes Absolute 1.25 0.80 - 3.00 x10*3/uL Monocytes Absolute 1.03 (H) 0.05 - 0.80 x10*3/uL Eosinophils Absolute 0.12 0.00 - 0.40 x10*3/uL Basophils Absolute 0.05 0.00 - 0.10 x10*3/uL Basic metabolic panel Result Value Ref Range Glucose 176 (H) 74 - 99 mg/dL Sodium 120 (LL) 136 - 145 mmol/L Potassium 4.6 3.5 - 5.3 mmol/L Chloride 85 (L) 98 - 107 mmol/L Bicarbonate 27 21 - 32 mmol/L Anion Gap 13 10 - 20 mmol/L Urea Nitrogen 20 6 - 23 mg/dL Creatinine 0.68 0.50 - 1.05 mg/dL eGFR 88 >60 mL/min/1.73m*2 Calcium 9.0 8.6 - 10.3 mg/dL Light Blue Top Result Value Ref Range Extra Tube Hold for add-ons. Lavender Top Result Value Ref Range Extra Tube Hold for add-ons. Otto Top Result Value Ref Range Extra Tube Hold for add-ons. PST Top Result Value Ref Range Extra Tube Hold for add-ons. VERIFY ABO/Rh Group Test Result Value Ref Range ABO TYPE O Rh TYPE POS Prepare Plasma: 2 Units Result Value Ref Range PRODUCT CODE [id number] Unit Number [id number] Unit ABO AB Unit RH POS Dispense Status TR Blood Expiration Date 09/04/2024 8:10:00 AM EST PRODUCT BLOOD TYPE 8400 UNIT VOLUME 327 PRODUCT CODE Z6488I13 Unit Number [id number] Unit ABO AB Unit RH POS Dispense Status TR Blood Expiration Date 09/04/2024 8:12:00 AM EST PRODUCT BLOOD TYPE 8400 UNIT VOLUME 204 Type And Screen Result Value Ref Range ABO TYPE O Rh TYPE POS ANTIBODY SCREEN NEG No results found. Assessment/Plan Assessment & Plan Angioedema of tongue 79-year-old female with history of Cerebral palsy Hypothyroidism Seizures Diabetes mellitus Presented with Angioedema Hyponatremia on salt tablets Plan Admit to ICU Cardiopulmonary monitoring Pulse ox check Follow vitals Daily CBC BMP On Benadryl, Methylprednisolone 40 Mg IV every 6 hours Famotidine IV Hydrate with normal saline at 100 cc/h Resume salt tablets Follow sodium levels Lovenox for DVT prophylaxis Statins for hyperlipidemia continue antiseizure medicines on lamotrigine 50 Mg p.o. twice daily Carbamazepine 100 mg daily Cough medicine Supportive care Antiemetics Continue [place] [facility] medicines Continue psych medicines on Abilify 10 Mg daily Valium 2.5 mg via G-tube daily On Synthroid 50 mcg via G-tube daily Supplemental oxygen as quired Chest x-ray Urinalysis ABGs if required Maintain ABCs, nebs treatments as deemed necessary Currently hemodynamically stable Monitor fingerstick Nutrition Hold lisinopril Patient unable to communicate at baseline, follow mentation This critically ill patient continues to be at-risk for clinically significant deterioration / failure due to the above mentioned dysfunctional, unstable organ systems. I have personally identified and managed all complex critical care issues to prevent aforementioned clinical deterioration. Critical care time is spent at bedside and/or the immediate area and has included, but is not limited to, the review of diagnostic tests, labs, radiographs, serial assessments of hemodynamics, respiratory status, ventilatory management, and family updates. Time spent in procedures and teaching are reported separately. Critical care time: 60 minutes Jorge Roberts MD [facility] Work Phone: 1(601) 691-782601-21-2025 History and physical note* Jorge Roberts MD - 08/30/2024 9:28 PM EST History Of Present Illness Mik Shelton is a 79 y.o. female presenting with enlarged tongue and swelling edema protruding with tongue bite but no active seizures or at least witnessed. Symptoms started last night around 10 PM and patient brought in here from [place] [facility]. She has cerebral palsy and unable to give any history. Discussed with caregiver at bedside. No fever chills neck stiffness or stridor or hoarseness of voiceor worsening swelling anywhere else in the body. Patient hemodynamically stable and protecting airways maintaining vital saturations. No hypertension. No bleeding from anywhere. No bowel or bladder incontinence. No cough or runny nose. Patient on lisinopril but on it for few months per discussion with caregiver. No new medicine recently. No wheezing. Slight blood noted on tongue from injury from teeth teeth bite. No nausea vomiting diarrhea or cough. Unable to obtain any further history. Patient has hyponatremia. Leukocytosis noted. She was given Benadryl, IV Decadron, Pepcid as well FFP x 2 units as well icatibant and tranexamic acid. No tonic myoclonic jerking movements or frothy secretions. No skin rashes Past Medical History Past Medical History: Diagnosis Date Cerebral palsy Diabetes mellitus (Multi) Hypothyroidism Psychiatric disorder Seizures (Multi) Cerebral palsy Hypothyroidism Seizures Diabetes mellitus Surgical History No past surgical history on file. Social History She reports that she has never smoked. She has never used smokeless tobacco. She reports that she does not currently use alcohol. She reports that she does not use drugs. Unable to obtain at this time Family History Family History Family history unknown: Yes Unable to obtain at this time Allergies Amoxicillin, Ampicillin, and Penicillin Review of Systems All other 12 point review of systems negative except HPI Physical Exam General Appearance: AAO x 0 Skin: skin color pink, warm, and dry; no suspicious rashes or lesions Eyes : PERRL, ENT: mucous membranes pink and moist, tongue swelling edema Neck: normocephalic Respiratory: lungs clear to auscultation anteriorly; no wheezing, rhonchi, or crackles. Heart: regular rate and rhythm. Abdomen: Nondistended, positive bowel sounds x4, soft, nontender Extremities: no edema Peripheral pulses: normal x4 extremities Neuro: Cerebral palsy and unable to communicate, nonverbal Last Recorded Vitals Blood pressure (!) 126/93, pulse 98, temperature 37 C (98.6 F), temperature source Temporal, resp. rate 16, SpO2 95%. Relevant Results Scheduled medications ARIPiprazole, 10 mg, oral, Nightly carBAMazepine, 100 mg, oral, Daily diazePAM, 2.5 mg, g-tube, Daily docusate sodium, 50 mg, g-tube, Daily enoxaparin, 40 mg, subcutaneous, q24h famotidine, 20 mg, intravenous, q12h CAROL fluticasone, 2 spray, Each Nostril, Daily guaiFENesin, 100 mg, g-tube, Daily lamoTRIgine, 50 mg, oral, BID levothyroxine, 50 mcg, g-tube, Daily methylPREDNISolone sodium succinate (PF), 40 mg, intravenous, q6h pravastatin, 20 mg, oral, Nightly sodium chloride, 1 g, g-tube, Daily tranexamic acid, 1,000 mg, intravenous, Once Continuous medications sodium chloride 0.9%, 125 mL/hr, Last Rate: 125 mL/hr (08/30/24 0758) sodium chloride 0.9%, 100 mL/hr, Last Rate: 100 mL/hr (08/30/24 1850) PRN medications PRN medications: acetaminophen OR acetaminophen OR acetaminophen, acetaminophen OR acetaminophen OR acetaminophen, bisacodyl, diphenhydrAMINE, ipratropium-albuteroL, ondansetron ODT OR ondansetron, oxygen Results for orders placed or performed during the hospital encounter of 08/30/24 (from the past 24 hours) CBC and Auto Differential Result Value Ref Range WBC 20.7 (H) 4.4 - 11.3 x10*3/uL nRBC 0.0 0.0 - 0.0 /100 WBCs RBC 3.85 (L) 4.00 - 5.20 x10*6/uL Hemoglobin 11.7 (L) 12.0 - 16.0 g/dL Hematocrit 34.4 (L) 36.0 - 46.0 % MCV 89 80 - 100 fL MCH 30.4 26.0 - 34.0 pg MCHC 34.0 32.0 - 36.0 g/dL RDW 12.5 11.5 - 14.5 % Platelets 425 150 - 450 x10*3/uL Neutrophils % 87.6 40.0 - 80.0 % Immature Granulocytes %, Automated 0.6 0.0 - 0.9 % Lymphocytes % 6.0 13.0 - 44.0 % Monocytes % 5.0 2.0 - 10.0 % Eosinophils % 0.6 0.0 - 6.0 % Basophils % 0.2 0.0 - 2.0 % Neutrophils Absolute 18.12 (H) 1.60 - 5.50 x10*3/uL Immature Granulocytes Absolute, Automated 0.12 0.00 - 0.50 x10*3/uL Lymphocytes Absolute 1.25 0.80 - 3.00 x10*3/uL Monocytes Absolute 1.03 (H) 0.05 - 0.80 x10*3/uL Eosinophils Absolute 0.12 0.00 - 0.40 x10*3/uL Basophils Absolute 0.05 0.00 - 0.10 x10*3/uL Basic metabolic panel Result Value Ref Range Glucose 176 (H) 74 - 99 mg/dL Sodium 120 (LL) 136 - 145 mmol/L Potassium 4.6 3.5 - 5.3 mmol/L Chloride 85 (L) 98 - 107 mmol/L Bicarbonate 27 21 - 32 mmol/L Anion Gap 13 10 - 20 mmol/L Urea Nitrogen 20 6 - 23 mg/dL Creatinine 0.68 0.50 - 1.05 mg/dL eGFR 88 >60 mL/min/1.73m*2 Calcium 9.0 8.6 - 10.3 mg/dL Light Blue Top Result Value Ref Range Extra Tube Hold for add-ons. Lavender Top Result Value Ref Range Extra Tube Hold for add-ons. Otto Top Result Value Ref Range Extra Tube Hold for add-ons. PST Top Result Value Ref Range Extra Tube Hold for add-ons. VERIFY ABO/Rh Group Test Result Value Ref Range ABO TYPE O Rh TYPE POS Prepare Plasma: 2 Units Result Value Ref Range PRODUCT CODE [id number] Unit Number [id number] Unit ABO AB Unit RH POS Dispense Status TR Blood Expiration Date 09/04/2024 8:10:00 AM EST PRODUCT BLOOD TYPE 8400 UNIT VOLUME 327 PRODUCT CODE [id number] Unit Number [id number] Unit ABO AB Unit RH POS Dispense Status TR Blood Expiration Date 09/04/2024 8:12:00 AM EST PRODUCT BLOOD TYPE 8400 UNIT VOLUME 204 Type And Screen Result Value Ref Range ABO TYPE O Rh TYPE POS ANTIBODY SCREEN NEG No results found. Assessment/Plan Assessment & Plan Angioedema of tongue 79-year-old female with history of Cerebral palsy Hypothyroidism Seizures Diabetes mellitus Presented with Angioedema Hyponatremia on salt tablets Plan Admit to ICU Cardiopulmonary monitoring Pulse ox check Follow vitals Daily CBC BMP On Benadryl, Methylprednisolone 40 Mg IV every 6 hours Famotidine IV Hydrate with normal saline at 100 cc/h Resume salt tablets Follow sodium levels Lovenox for DVT prophylaxis Statins for hyperlipidemia continue antiseizure medicines on lamotrigine 50 Mg p.o. twice daily Carbamazepine 100 mg daily Cough medicine Supportive care Antiemetics Continue [facility] [facility] medicines Continue psych medicines on Abilify 10 Mg daily Valium 2.5 mg via G-tube daily On Synthroid 50 mcg via G-tube daily Supplemental oxygen as quired Chest x-ray Urinalysis ABGs if required Maintain ABCs, nebs treatments as deemed necessary Currently hemodynamically stable Monitor fingerstick Nutrition Hold lisinopril Patient unable to communicate at baseline, follow mentation This critically ill patient continues to be at-risk for clinically significant deterioration / failure due to the above mentioned dysfunctional, unstable organ systems. I have personally identified and managed all complex critical care issues to prevent aforementioned clinical deterioration. Critical care time is spent at bedside and/or the immediate area and has included, but is not limited to, the review of diagnostic tests, labs, radiographs, serial assessments of hemodynamics, respiratory status, ventilatory management, and family updates. Time spent in procedures and teaching are reported separately. Critical care time: 60 minutes Jorge Roberts MD [facility] Work Phone: 1([phone]) 561-844901-21-2025 Nurse Note* Gabriele Jacob RN - 08/30/2024 6:00 PM EST Pt resting quietly in bed with her eyes closed, tongue appears less swollen and pt drooling less. PEG tube site is clean and flushes well. [facility] Work Phone: 1(350) 299-629301-21-2025 Nurse Note* Gabriele Jacob RN - 08/30/2024 3:43 PM EST Pt is resting quietly. [facility] Work Phone: [phone]) [phone] Nurse Note* Gabriele Jacob RN - 08/30/2024 12:00 PM EST Pt transferred from ED cot to bed, Rm 332. Monitors applied, report received from facility staff. Pt is alert and follows people in the room when addressed, but non-verbal and soon stops following.Pt appears calm, but has continuous mouth movement and thin secretions. Tongue tip is enlarged, dark red, and protrudes from her mouth. Her breathing appears unlabored andeven. Pt's right arm is contracted as is her left hand. Both feet appear dropped. She does not or is not able to follow commands, but that appears to be baseline. No skin breakdown or bruising noted. [facility] Work Phone: [phone]) 181-773401-21-2025 Emergency department Note* Marc Asher DO - 08/30/2024 6:30 AM ESTAssociated Order(s): Critical Care Swelling of the tongue. This 79-year-old white female with history of cerebral palsy and MRDD presents to the ED via EMS from a [place] [facility] due to swelling of the tongue. The caregiver who presents with the patient states that the swelling began last night around 10 PM and has not changed at all. Though the patient is noted to be chewing on her tongue because it is so large. There is evidence of some bloody saliva. The patient is nonverbal and does not offer any history. History provided by: EMS personnel and caregiver History limited by: Patient nonverbal ve teacher used: No Physical Exam Vitals and nursing note reviewed. Constitutional: General: She is awake. Appearance: Normal appearance. She is overweight. HENT: Head: Normocephalic and atraumatic. Right Ear: Hearing and external ear normal. Left Ear: Hearing and external ear normal. Nose: Nose normal. No congestion or rhinorrhea. Mouth/Throat: Lips: [place]. Mouth: Mucous membranes are moist. Pharynx: Oropharynx is clear. No oropharyngeal exudate or posterior oropharyngeal erythema. Comments: Patient has a very enlarged edematous tongue that protrudes from her mouth there is evidence of traumatic injury from the patient chewing on her tongue. There is no stridorous breathing or respiratory distress noted currently. Eyes: General: Lids are normal. Vision grossly intact. Right eye: No discharge. Left eye: No discharge. Extraocular Movements: Extraocular movements intact. Conjunctiva/sclera: Conjunctivae normal. Pupils: Pupils are equal, round, and reactive to light. Cardiovascular: Rate and Rhythm: Regular rhythm. Tachycardia present. Pulses: Normal pulses. Heart sounds: Normal heart sounds. No murmur heard. No friction rub. No gallop. Pulmonary: Effort: Pulmonary effort is normal. No respiratory distress. Breath sounds: Normal breath sounds. No stridor. No wheezing, rhonchi or rales. Chest: Chest wall: No tenderness. Abdominal: General: Abdomen is flat. Bowel sounds are normal. There is no distension. Palpations: Abdomen is soft. There is no mass. Tenderness: There is no abdominal tenderness. There is no guarding or rebound. Hernia: No hernia is present. Musculoskeletal: General: No swelling, tenderness, deformity or signs of injury. Normal range of motion. Cervical back: Full passive range of motion without pain, normal range of motion and neck supple. Right lower le+ Edema present. Left lower le+ Edema present. Comments: Patient has trace lower extremity edema. Skin: General: Skin is warm and dry. Capillary Refill: Capillary refill takes less than 2 seconds. Coloration: Skin is not jaundiced or pale. Findings: No bruising, erythema, lesion or rash. Neurological: General: No focal deficit present. Mental Status: She is alert. Mental status is at baseline. GCS: GCS eye subscore is 4. GCS verbal subscore is 1. GCS motor subscore is 5. Cranial Nerves: Cranial nerves 2-12 are intact. No cranial nerve deficit. Sensory: Sensation is intact. No sensory deficit. Motor: No weakness. Coordination: Coordination normal. Deep Tendon Reflexes: Reflexes normal. Psychiatric: Mood and Affect: Mood normal. Behavior: Behavior normal. Thought Content: Thought content normal. Judgment: Judgment normal. Labs Reviewed CBC WITH AUTO DIFFERENTIAL - Abnormal Result Value WBC 20.7 (*) nRBC 0.0 RBC 3.85 (*) Hemoglobin 11.7 (*) Hematocrit 34.4 (*) MCV 89 MCH 30.4 MCHC 34.0 RDW 12.5 Platelets 425 Neutrophils % 87.6 Immature Granulocytes %, Automated 0.6 Lymphocytes % 6.0 Monocytes % 5.0 Eosinophils % 0.6 Basophils % 0.2 Neutrophils Absolute 18.12 (*) Immature Granulocytes Absolute, Automated 0.12 Lymphocytes Absolute 1.25 Monocytes Absolute 1.03 (*) Eosinophils Absolute 0.12 Basophils Absolute 0.05 BASIC METABOLIC PANEL - Abnormal Glucose 176 (*) Sodium 120 (*) Potassium 4.6 Chloride 85 (*) Bicarbonate 27 Anion Gap 13 Urea Nitrogen 20 Creatinine 0.68 eGFR 88 Calcium 9.0 OTTO TOP Extra Tube Hold for add-ons. TYPE AND SCREEN ABO TYPE O Rh TYPE POS ANTIBODY SCREEN NEG VERAB/VERIFY ABORH ABO TYPE O Rh TYPE POS CBC COMPREHENSIVE METABOLIC PANEL PREPARE PLASMA PRODUCT CODE [id number] Unit Number [id number] Unit ABO AB Unit RH POS Dispense Status TR Blood Expiration Date 09/04/2024 8:10:00 AM EST PRODUCT BLOOD TYPE 8400 UNIT VOLUME 327 PRODUCT CODE [id number] Unit Number [id number] Unit ABO AB Unit RH POS Dispense Status TR Blood Expiration Date 09/04/2024 8:12:00 AM EST PRODUCT BLOOD TYPE 8400 UNIT VOLUME 204 No orders to display Critical Care Performed by: Marc Asher DO Authorized by: Marc Asher DO Critical care provider statement: Critical care time (minutes): 25 Critical care time was exclusive of: Separately billable procedures and treating other patients Critical care was necessary to treat or prevent imminent or life-threatening deterioration of the following conditions: angioedema of the tongue. Critical care was time spent personally by me on the following activities: Development of treatmentplan with patient or surrogate, discussions with primary provider, evaluation of patient's responseto treatment, examination of patient, obtaining history from patient or surrogate, ordering and performing treatments and interventions, ordering and review of laboratory studies and re-evaluation ofpatient's condition Care discussed with: admitting provider Medical Decision Making Patient was seen and evaluated in the ED due to angioedema of her tongue that began yesterday at 10PM. Patient is nonverbal and not able to offer any help. Staff present with the patient states thatthe patient has had issues with hyponatremia. Patient is on lisinopril and most likely that is the culprit that led to her angioedema of the tongue. Due to the fact that the mechanism is bradykinin Idid order appropriate medications in addition to IV Decadron and Pepcid. Patient was previously treated with IM Benadryl. Patient ordered FFP and icatibant. Patient will be admitted to the ICU for continued monitoring of her airway in addition to treatment of her hyponatremia. Diagnoses as of 08/30/242118 Angioedema of tongue Hyponatremia Marc Asher DO 08/30/242118 documented in this [facility] Work Phone: [phone] 539-219001-21-2025 Physician Emergency department Note* Marc Asher DO - 08/30/2024 6:30 AM ESTAssociated Order(s): Critical Care Swelling of the tongue. This 79-year-old white female with history of cerebral palsy and MRDD presents to the ED via EMS from a [place] [facility] due to swelling of the tongue. The caregiver who presents with the patient states that the swelling began last night around 10 PM and has not changed at all. Though the patient is noted to be chewing on her tongue because it is so large. There is evidence of some bloody saliva. The patient is nonverbal and does not offer any history. History provided by: EMS personnel and caregiver History limited by: Patient nonverbal ve teacher used: No Physical Exam Vitals and nursing note reviewed. Constitutional: General: She is awake. Appearance: Normal appearance. She is overweight. HENT: Head: Normocephalic and atraumatic. Right Ear: Hearing and external ear normal. Left Ear: Hearing and external ear normal. Nose: Nose normal. No congestion or rhinorrhea. Mouth/Throat: Lips: [place]. Mouth: Mucous membranes are moist. Pharynx: Oropharynx is clear. No oropharyngeal exudate or posterior oropharyngeal erythema. Comments: Patient has a very enlarged edematous tongue that protrudes from her mouth there is evidence of traumatic injury from the patient chewing on her tongue. There is no stridorous breathing or respiratory distress noted currently. Eyes: General: Lids are normal. Vision grossly intact. Right eye: No discharge. Left eye: No discharge. Extraocular Movements: Extraocular movements intact. Conjunctiva/sclera: Conjunctivae normal. Pupils: Pupils are equal, round, and reactive to light. Cardiovascular: Rate and Rhythm: Regular rhythm. Tachycardia present. Pulses: Normal pulses. Heart sounds: Normal heart sounds. No murmur heard. No friction rub. No gallop. Pulmonary: Effort: Pulmonary effort is normal. No respiratory distress. Breath sounds: Normal breath sounds. No stridor. No wheezing, rhonchi or rales. Chest: Chest wall: No tenderness. Abdominal: General: Abdomen is flat. Bowel sounds are normal. There is no distension. Palpations: Abdomen is soft. There is no mass. Tenderness: There is no abdominal tenderness. There is no guarding or rebound. Hernia: No hernia is present. Musculoskeletal: General: No swelling, tenderness, deformity or signs of injury. Normal range of motion. Cervical back: Full passive range of motion without pain, normal range of motion and neck supple. Right lower le+ Edema present. Left lower le+ Edema present. Comments: Patient has trace lower extremity edema. Skin: General: Skin is warm and dry. Capillary Refill: Capillary refill takes less than 2 seconds. Coloration: Skin is not jaundiced or pale. Findings: No bruising, erythema, lesion or rash. Neurological: General: No focal deficit present. Mental Status: She is alert. Mental status is at baseline. GCS: GCS eye subscore is 4. GCS verbal subscore is 1. GCS motor subscore is 5. Cranial Nerves: Cranial nerves 2-12 are intact. No cranial nerve deficit. Sensory: Sensation is intact. No sensory deficit. Motor: No weakness. Coordination: Coordination normal. Deep Tendon Reflexes: Reflexes normal. Psychiatric: Mood and Affect: Mood normal. Behavior: Behavior normal. Thought Content: Thought content normal. Judgment: Judgment normal. Labs Reviewed CBC WITH AUTO DIFFERENTIAL - Abnormal Result Value WBC 20.7 (*) nRBC 0.0 RBC 3.85 (*) Hemoglobin 11.7 (*) Hematocrit 34.4 (*) MCV 89 MCH 30.4 MCHC 34.0 RDW 12.5 Platelets 425 Neutrophils % 87.6 Immature Granulocytes %, Automated 0.6 Lymphocytes % 6.0 Monocytes % 5.0 Eosinophils % 0.6 Basophils % 0.2 Neutrophils Absolute 18.12 (*) Immature Granulocytes Absolute, Automated 0.12 Lymphocytes Absolute 1.25 Monocytes Absolute 1.03 (*) Eosinophils Absolute 0.12 Basophils Absolute 0.05 BASIC METABOLIC PANEL - Abnormal Glucose 176 (*) Sodium 120 (*) Potassium 4.6 Chloride 85 (*) Bicarbonate 27 Anion Gap 13 Urea Nitrogen 20 Creatinine 0.68 eGFR 88 Calcium 9.0 OTTO TOP Extra Tube Hold for add-ons. TYPE AND SCREEN ABO TYPE O Rh TYPE POS ANTIBODY SCREEN NEG VERAB/VERIFY ABORH ABO TYPE O Rh TYPE POS CBC COMPREHENSIVE METABOLIC PANEL PREPARE PLASMA PRODUCT CODE [id number] Unit Number [id number] Unit ABO AB Unit RH POS Dispense Status TR Blood Expiration Date 09/04/2024 8:10:00 AM EST PRODUCT BLOOD TYPE 8400 UNIT VOLUME 327 PRODUCT CODE [id number] Unit Number [id number] Unit ABO AB Unit RH POS Dispense Status TR Blood Expiration Date 09/04/2024 8:12:00 AM EST PRODUCT BLOOD TYPE 8400 UNIT VOLUME 204 No orders to display Critical Care Performed by: Marc Asher DO Authorized by: Marc Asher DO Critical care provider statement: Critical care time (minutes): 25 Critical care time was exclusive of: Separately billable procedures and treating other patients Critical care was necessary to treat or prevent imminent or life-threatening deterioration of the following conditions: angioedema of the tongue. Critical care was time spent personally by me on the following activities: Development of treatmentplan with patient or surrogate, discussions with primary provider, evaluation of patient's responseto treatment, examination of patient, obtaining history from patient or surrogate, ordering and performing treatments and interventions, ordering and review of laboratory studies and re-evaluation ofpatient's condition Care discussed with: admitting provider Medical Decision Making Patient was seen and evaluated in the ED due to angioedema of her tongue that began yesterday at 10PM. Patient is nonverbal and not able to offer any help. Staff present with the patient states thatthe patient has had issues with hyponatremia. Patient is on lisinopril and most likely that is the culprit that led to her angioedema of the tongue. Due to the fact that the mechanism is bradykinin Idid order appropriate medications in addition to IV Decadron and Pepcid. Patient was previously treated with IM Benadryl. Patient ordered FFP and icatibant. Patient will be admitted to the ICU for continued monitoring of her airway in addition to treatment of her hyponatremia. Diagnoses as of 08/30/242118 Angioedema of tongue Hyponatremia Marc Asher DO 08/30/242118 [facility] Work Phone: [phone]) 364-990601-14-2025 History of Present illness Narrative* Shanda Huizar DO - 08/23/2024 11:40 AM EST Subjective Patient ID: Mik Shelton is a 79 y.o. female who presents for No chief complaint on file.. HPI Patient is here today via telephone with [place] [facility] caregiver for 2 mo follow up Patient and physician are at two separate locations. Pt and caregiver was verbally consented for the encounter. She is getting 170ml before and AFTER each Feeding per strategic procurement manager. Na is 126. Will repeat cmp. Still not wanting to eat much orally. She is due to be weight this month. Review of Systems Unable to do ROS due to non verbal status Objective There were no vitals taken for this visit. Physical Exam No physical exam was completed due to being a telephone visit. Assessment/Plan Problem List Items Addressed This Visit Controlled diabetes mellitus type II without complication (Multi) Hypothyroid Intellectual functioning disability Primary hypertension Mixed hyperlipidemia Altered mental status, unspecified altered mental status type Seizures (Multi) Developmental delay Spastic quadriplegic cerebral palsy (Multi) Other Visit Diagnoses Hyponatremia - Primary Relevant Orders Basic Metabolic Panel Unintentional weight loss , continue to check weights - pt refuses to eat at times - can continue tube feedings with bolus 4 x a day - ok with them always offering oral options and if refusing or not eating enough continue with tubefeedings and then give pleasure feedings - cane packer following - recent low Na still at 126, water flushes strategic procurement manager adjusted, will repeat bmp 2. Anxiety - continue vistaril to 25mg po tid 3. Hypercalcemia, dehydration rashida, resolved - repeat calcium normal 4. DMII - A1c was 5.4% -> 6.0% Final diagnoses: [E87.1] Hyponatremia [I10] Primary hypertension [E78.2] Mixed hyperlipidemia [E03.9] Acquired hypothyroidism [E11.9] Controlled type 2 diabetes mellitus without complication, without long- term current use of insulin (Multi) [G80.0] Spastic quadriplegic cerebral palsy (Multi) [R56.9] Seizures (Multi) [F79] Intellectual functioning disability [R62.50] Developmental delay [R41.82] Altered mental status, unspecified altered mental status type documented in this [facility] Work Phone: [phone] 397-366712-16-2024 History of Present illness Narrative* Shanda Huizar DO - 07/25/2024 10:00 AM EST Subjective Patient ID: Mik Shelton is a 79 y.o. female who presents for Follow-up (6 week follow up). HPI Patient is hrere today for 6 week follow up with [place] [facility] staff. Has a rash under right breast. Pt had low Na 125, strategic procurement manager adjusted flushes, getting tube feedings 4x a day. Doing well with peg. Will repeat bmp She did have one time that she had a large amount of residual when they went to do her next feeding, she had eaten more pleasure feedings that day, is not consistently having high residuals. Review of Systems Unable to do ROS due to non verbal Objective BP 130/78 Pulse 90 Ht 1.55 m (5' 1.02) Wt 50.3 kg (111 lb) BMI 20.96 kg/m Physical Exam Constitutional: General: She is not in acute distress. Appearance: Normal appearance. Comments: In wheelchair HENT: Head: Normocephalic. Nose: Nose normal. Eyes: General: Right eye: No discharge. Left eye: No discharge. Extraocular Movements: Extraocular movements intact. Cardiovascular: Rate and Rhythm: Normal rate and regular rhythm. Heart sounds: No murmur heard. No gallop. TRACE non pitting edema, not wearing oli hose Pulmonary: Effort: Pulmonary effort is normal. No respiratory distress. Breath sounds: Normal breath sounds. No wheezing. Abdominal: General: Bowel sounds are normal. There is no distension. Peg in place Palpations: Abdomen is soft. Tenderness: There is no abdominal tenderness. Peg tube placed Musculoskeletal: General: No swelling. Normal range of motion. Skin: General: Skin is warm and dry. Area of redness consistent with mathew under right breast Coloration: Skin is not jaundiced. Neurological: Mental Status: She is alert. Cranial Nerves: No cranial nerve deficit. Non verbal Comments: Significant muscle atrophy of viviana lower extremities and upper arms, contractures of hands Assessment/Plan Problem List Items Addressed This Visit Controlled diabetes mellitus type II without complication (Multi) Hypothyroid Intellectual functioning disability Primary hypertension Mixed hyperlipidemia Spastic quadriplegic cerebral palsy (Multi) Other Visit Diagnoses Low sodium levels - Primary Relevant Orders Basic Metabolic Panel Mathew infection Relevant Medications nystatin (Mycostatin) 100,000 unit/gram powder Unintentional weight loss , continue to check weights - pt refuses to eat at times - can continue tube feedings with bolus 4 x a day - ok with them always offering oral options and if refusing or not eating enough continue with tubefeedings - cane packer following - recent low Na, strategic procurement manager adjusted, will repeat bmp 2. Anxiety - continue vistaril to 25mg po tid 3. Hypercalcemia, dehydration rashida - repeat calcium normal 4. DMII - A1c was 5.4% -> 6.0% Final diagnoses: [E87.1] Low sodium levels [B37.9] Mathew infection [E78.2] Mixed hyperlipidemia [I10] Primary hypertension [E11.9, Z79.4] Controlled type 2 diabetes mellitus without complication, with long-term current useof insulin (Multi) [E03.9] Acquired hypothyroidism [F79] Intellectual functioning disability [G80.0] Spastic quadriplegic cerebral palsy (Multi) documented in this [facility] Work Phone: [phone]) 116-591212-04-2024 NoteHPI Chief Complaint Patient presents with Nail Care Diabetic nail care. Last A1C was 6.0 on 06/17/2024. Patient is a pleasant 78-year-old female who comes in today with her roustabout for a diabetic foot exam and see if she can get her nails cut. Her nails cut at home recently from a doctor however he has since retired. Geriatric care is managed by primary including Dr. Mobley. Past Medical History: Diagnosis Date Cerebral palsy (HCC) Hypothyroidism Osteoporosis Seizure disorder (HCC) 2017 Type 2 diabetes mellitus (HCC) Past Surgical History: Procedure Laterality Date CT COLONOSCOPY 10/05/2023 CT COLONOSCOPY Social History Socioeconomic History Marital status: Single Tobacco Use Smoking status: Never Smokeless tobacco: Never Substance and Sexual Activity Alcohol use: No Drug use: No Social Drivers of Health Financial Resource Strain: Low Risk (04/19/2024) Received from [facility] Overall Financial Resource Strain (CARDIA) Difficulty of Paying Living Expenses: Not hard at all Transportation Needs: No Transportation Needs (04/19/2024) Received from [facility] PRAPARE - Transportation Lack of Transportation (Medical): No Lack of Transportation (Non-Medical): No Housing Stability: Low Risk (04/19/2024) Received from [facility] Housing Stability Vital Sign Unable to Pay for Housing in the Last Year: No Number of Times Moved in the Last Year: 0 Homeless in the Last Year: No Review of Systems -Patient is essentially noncommunicative and therefore denied Physical Exam -Vascular: DP pulses are palpable 2-4. PT pulses are essentially nonpalpable. CFT is delayed with mild foot and ankle edema. Derm: Skin is shiny atrophic and dysvascular. No open ulcers no erythema no rashes noted nodules. Neuro: Light touch is blunted Babinski's is normal. Musculoskeletal: Muscle strength is 2 out of 5 with okay tone. Ankle subtalar midtarsal is full and pain-free. Nails left [id number] and right foot [id number] are elongated and dystrophic. Blood pressure: 72/38, HR: 104 pulse ox 92% on room air Second blood pressure did improve to 96/56 heart rate 96 pulse ox 92% on room air Impression/Plan Problem List Items Addressed This Visit None Visit Diagnoses Onychodystrophy - Primary Peripheral vascular disease, unspecified (HCC) Patient is a pleasant 77 female with diabetes is, early arterial disease and onychodystrophy to 10 nails. -She does qualify for high risk nail care. Procedure: After timeout consent was performed, sharply debrided and debulked in height and length 10 onychodystrophy nails with a sharp cranial nippers consistent with a q8 modifier. Patient is a noncommunicative so very hard to let her know and septicemia know what perhaps is bothering her. In light of her hypotension and tachycardia, did ask that they be evaluated by the emergency department to get labs and workup for infection/septicemia. Additionally, states that they did just get their blood pressure medication adjusted and not sure if this is causation. Follow-up in 3 months or 6 months for foot nail care. AUTHENTICATED BY SOTO TONY JR., ON 07/13/2024 10:14:17[facility] [id number] History of Present illness Narrative* Soto Tony Jr., DP - 07/13/2024 10:13 AM EST HPI Chief Complaint Patient presents with Nail Care Diabetic nail care. Last A1C was 6.0 on 06/17/2024. Patient is a pleasant 78-year-old female who comes in today with her roustabout for a diabetic foot exam and see if she can get her nails cut. Her nails cut at home recently from a doctor however he has since retired. Geriatric care is managed by primary including Dr. Mobley. Past Medical History: Diagnosis Date Cerebral palsy (HCC) Hypothyroidism Osteoporosis Seizure disorder (HCC) 2017 Type 2 diabetes mellitus (HCC) Past Surgical History: Procedure Laterality Date CT COLONOSCOPY 10/05/2023 CT COLONOSCOPY Social History Socioeconomic History Marital status: Single Tobacco Use Smoking status: Never Smokeless tobacco: Never Substance and Sexual Activity Alcohol use: No Drug use: No Social Drivers of Health Financial Resource Strain: Low Risk (04/19/2024) Received from [facility] Overall Financial Resource Strain (CARDIA) Difficulty of Paying Living Expenses: Not hard at all Transportation Needs: No Transportation Needs (04/19/2024) Received from [facility] PRAPARE - Transportation Lack of Transportation (Medical): No Lack of Transportation (Non-Medical): No Housing Stability: Low Risk (04/19/2024) Received from [facility] Housing Stability Vital Sign Unable to Pay for Housing in the Last Year: No Number of Times Moved in the Last Year: 0 Homeless in the Last Year: No Review of Systems -Patient is essentially noncommunicative and therefore denied Physical Exam -Vascular: DP pulses are palpable 2-4. PT pulses are essentially nonpalpable. CFT is delayed with mild foot and ankle edema. Derm: Skin is shiny atrophic and dysvascular. No open ulcers no erythema no rashes noted nodules. Neuro: Light touch is blunted Babinski's is normal. Musculoskeletal: Muscle strength is 2 out of 5 with okay tone. Ankle subtalar midtarsal is full andpain-free. Nails left [id number] and right foot 55459 are elongated and dystrophic. Blood pressure: 72/38, HR: 104 pulse ox 92% on room air Second blood pressure did improve to 96/56 heart rate 96 pulse ox 92% on room air Impression/Plan Problem List Items Addressed This Visit None Visit Diagnoses Onychodystrophy - Primary Peripheral vascular disease, unspecified (HCC) Patient is a pleasant 77 female with diabetes is, early arterial disease and onychodystrophy to 10 nails. -She does qualify for high risk nail care. Procedure: After timeout consent was performed, sharply debrided and debulked in height and length 10 onychodystrophy nails with a sharp cranial nippers consistent with a q8 modifier. Patient is a noncommunicative so very hard to let her know and septicemia know what perhaps is bothering her. In light of her hypotension and tachycardia, did ask that they be evaluated by the emergency department to get labs and workup for infection/septicemia. Additionally, states that they did just get their blood pressure medication adjusted and not sure if this is causation. Follow-up in 3 months or 6 months for foot nail care. documented in this [id number] History of Present illness Narrative* Shanda Huizar DO - 06/27/2024 10:40 AM EST Subjective Patient ID: Mik Shelton is a 79 y.o. female who presents for Hospital Follow-up ([facility]; G-TUBE placement ). HPI Patient is here today for hospital follow up and [place] discharge with [place] [facility] staff. She was admitted to [facility] in May 03 for AMS with cognitive decline from baseline. Labs showed hypercalcemia, hyponatremia, dehydration, RASHIDA and lactic acidosis. Pt had a peg tube placed and was discharged to [facility] for 2 mo. Has been back at [facility] for 1 week. Is on bolus feedings 4 x a day. Was being offered lunch at [facility]. She had some sacral small ulcerations but those are healed. She has gained a few lbs since her last appt. Review of Systems Unable to do ROS Objective BP 130/74 Pulse 88 Ht 1.55 m (5' 1.02) Wt 50.3 kg (111 lb) BMI 20.96 kg/m Physical Exam Constitutional: General: She is not in acute distress. Appearance: Normal appearance. Comments: In wheelchair HENT: Head: Normocephalic. Nose: Nose normal. Mouth/Throat: Pharynx: No oropharyngeal exudate. Eyes: General: Right eye: No discharge. Left eye: No discharge. Extraocular Movements: Extraocular movements intact. Pupils: Pupils are equal, round, and reactive to light. Cardiovascular: Rate and Rhythm: Normal rate and regular rhythm. Heart sounds: No murmur heard. No gallop. TRACE non pitting edema, not wearing oli hose Pulmonary: Effort: Pulmonary effort is normal. No respiratory distress. Breath sounds: Normal breath sounds. No wheezing. Abdominal: General: Bowel sounds are normal. There is no distension. Palpations: Abdomen is soft. Tenderness: There is no abdominal tenderness. Peg tube placed Musculoskeletal: General: No swelling. Normal range of motion. Skin: General: Skin is warm and dry. Coloration: Skin is not jaundiced. Neurological: Mental Status: She is alert. Cranial Nerves: No cranial nerve deficit. Comments: Significant muscle atrophy of viviana lower extremities and upper arms, contractures of hands Psychiatric: Mood and Affect: Mood normal. Behavior: Behavior normal. Assessment/Plan Problem List Items Addressed This Visit Controlled diabetes mellitus type II without complication (Multi) Diabetic autonomic neuropathy associated with type 2 diabetes mellitus (Multi) Relevant Orders Hemoglobin A1C Hypothyroid Primary hypertension Mixed hyperlipidemia Seizures (Multi) Spastic quadriplegic cerebral palsy (Multi) Acute respiratory failure with hypercapnia (Multi) Chronic viral hepatitis B without 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 (Multi) Other Visit Diagnoses Hypercalcemia - Primary Relevant Orders Comprehensive Metabolic Panel Unintentional weight loss - pt refuses to eat at times - can continue tube feedings with bolus 4 x a day - ok with them always offering oral options and if refusing or not eating enough continue with tubefeedings - cane packer following 2. Anxiety - can change vistaril to 25mg po tid without specific times scheduled 3. Hypercalcemia, dehydration rashida - will repeat cmp 4. DMII - A1c was 5.4% - will order repeat A1c 5. Follow up in 6 weeks Final diagnoses: [E83.52] Hypercalcemia [E11.43] Diabetic autonomic neuropathy associated with type 2 diabetes mellitus (Multi) [G80.0] Spastic quadriplegic cerebral palsy (Multi) [J96.02] Acute respiratory failure with hypercapnia (Multi) [B18.1] Chronic viral hepatitis B without 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 (Multi) [E78.2] Mixed hyperlipidemia [I10] Primary hypertension [E11.9, Z79.4] Controlled type 2 diabetes mellitus without complication, with long-term current useof insulin (Multi) [E03.9] Acquired hypothyroidism [R56.9] Seizures (Multi) documented in this [facility] Work Phone: 1(196) 791-701410-25-2024 History of Present illness Narrative* Marnie Bowers - 06/03/2024 12:00 AM EDT [facility] NOTE NAME: [facility] NO.: [id number] DATE OF SERVICE: 06/03/2024 ATTENDING PHYSICIAN: Marnie Bowers MD [facility] skilled care. She is currently napping in bed, but is arousable. She seems comfortable. Nursing reports no new problems. She is nonverbal. She has had no shortness of breath or chest pain. MEDICATIONS: Reviewed. EXAMINATION: Afebrile, vital signs stable. HEENT: Intact. Lungs: Clear. Heart: Regular. Abdomen: Soft, nontender. Extremities: No edema. IMPRESSIONS: 1. Hypertension - blood pressure is well controlled. 2. Diabetes mellitus type 2 - blood sugars have been within a fair range. 3. Cognitive impairment/cerebral palsy - continue current therapy. DICTATED BY: Marnie Bowers MD IAE/AQT JOB# [id number] [facility]24 NoteHNO ID: [id number] Author: MARNIE BOWERS, ? Service: ? Author Type: Physician Type: Progress Notes Filed: 06/06/2024 16:16 Note Text: [facility] NOTE NAME: MIK [facility]TON [employer] NO.: [id number] DATE OF SERVICE: 06/03/2024 ATTENDING PHYSICIAN: Marnie Bowers MD [facility]. She is currently napping in bed, but is arousable. She seems comfortable. Nursing reports no new problems. She is nonverbal. She has had no shortness of breath or chest pain. MEDICATIONS: Reviewed. EXAMINATION: Afebrile, vital signs stable. HEENT: Intact. Lungs: Clear. Heart: Regular. Abdomen: Soft, nontender. Extremities: No edema. IMPRESSIONS: 1. Hypertension - blood pressure is well controlled. 2. Diabetes mellitus type 2 - blood sugars have been within a fair range. 3. Cognitive impairment/cerebral palsy - continue current therapy. DICTATED BY: MD JENNY Galvin/TATIANA JOB# [id number] [facility]09-25-2024 History of Present illness Narrative* Marnie Bowers - 05/04/2024 12:00 AM EDT [facility] NOTE NAME: [facility] [employer] NO.: [id number] DATE OF SERVICE: 05/04/2024 ATTENDING PHYSICIAN: Marnie Bowers MD [facility] She is currently resting in bed. She is awake, but nonverbal. She does not appear to be in any distress. Nursing reports no problems. EXAMINATION: Afebrile, vital signs stable. HEENT: Intact. Lungs: Clear, though poor inspiratory effort. Heart: Regular. Abdomen: Soft, nontender. Extremities: No edema. Gastrostomy feeding tube present. IMPRESSIONS: 1. Recent electrolyte imbalance with dehydration - monitor fluid balance closely. 2. Hypertension - blood pressures within a fair range. 3. Diabetes mellitus type 2 - blood sugars are being monitored. 4. Recent altered mental status secondary to metabolic encephalopathy with underlying cognitive impairment/cerebral palsy - this appears stable. Continue current therapy. DICTATED BY: MD JENNY Galvin/TATIANA JOB# [id number] [facility] documented in this [facility]Children[facility]09-25-2024 NoteHNO ID: [id number] Author: MARNIE BOWERS, ? Service: ? Author Type: Physician Type: Progress Notes Filed: 05/10/2024 16:29 Note Text: [facility] NOTE NAME: [facility] [employer] NO.: [id number] DATE OF SERVICE: 05/04/2024 ATTENDING PHYSICIAN: Marnie Bowers MD [facility] skilled care She is currently resting in bed. She is awake, but nonverbal. She does not appear to be in any distress. Nursing reports no problems. EXAMINATION: Afebrile, vital signs stable. HEENT: Intact. Lungs: Clear, though poor inspiratory effort. Heart: Regular. Abdomen: Soft, nontender. Extremities: No edema. Gastrostomy feeding tube present. IMPRESSIONS: 1. Recent electrolyte imbalance with dehydration - monitor fluid balance closely. 2. Hypertension - blood pressures within a fair range. 3. Diabetes mellitus type 2 - blood sugars are being monitored. 4. Recent altered mental status secondary to metabolic encephalopathy with underlying cognitive impairment/cerebral palsy - this appears stable. Continue current therapy. DICTATED BY: MD JENNY Galvin/TATIANA JOB# [id number] [facility]09-17-20[facility] History of Present illness Narrative* Marnie Bowers - 04/26/2024 12:00 AM EDT [facility] NOTE NAME: [facility] [employer] NO.: [id number] DATE OF SERVICE: 04/26/2024 ATTENDING PHYSICIAN: Marnie Bowers MD [facility] PATIENT HISTORY AND PHYSICAL: HISTORY OF PRESENT ILLNESS: The patient is an 79-year-old female, who is admitted to us from [facility] with a diagnosis of altered mental status secondary to metabolic encephalopathy with underlying cognitive impairment, acute kidney injury secondary to severe dehy dration with electrolyte imbalance with severe hypercalcemia and hypernatremia, lactic acidosis, cerebral palsy, diabetes mellitus type 2, hypothyroidism, seizure disorder, osteoporosis, hypertension, hyperlipidemia, and generalized weakness and debility. She was initially admitted to the hospital [place] after developing altered mental status with baseline cognitive decline and decreased oral intake. Evaluation in the hospital did reveal findings consistent with severe dehydration related to her poor oral intake resulting in acute kidney injury and electrolyte imbalance with severehypernatremia and hypercalcemia. Also, lactic acidosis. She was seen in consultation by the nephrology service. She was given IV fluids for hydration. Followup labs did reveal improvement in her renal function, as well as her electrolytes. The caregiver did request placement of gastrostomy feeding tube to help with her oral intake. She was seen by the Gastroenterology Service and did undergo place ment of a gastrostomy feeding tube, which she tolerated well. Her condition was stabilized and she is now admitted to our facility for continued therapy prior to returning back to her [place]. REVIEW OF SYSTEMS: The patient is currently sitting up in bed. She is awake and looking around, butnonverbal. This apparently is her baseline. She is in no distress. Nursing reports no respiratory distress, chest pain or discomfort, abdominal pain, nausea, vomiting, or bleeding. She has been tolerating her tube feedings. FAMILY HISTORY: Significant for hypertension. SOCIAL/FUNCTIONAL HISTORY: No history of smoking or alcohol abuse. Once again, she has been living in a [place]. MEDICATIONS: Alendronate 70 mg weekly, aripiprazole 10 mg daily, calcium with vitamin D b.i.d., calcium carbonate b.i.d., carbamazepine 100 mg daily, ferrous fumarate capsule daily, cyanocobalamin 1 mg daily, diazepam 1 mg q.a.m., docusate daily, ergocalciferol 50,000 units weekly, fluconazole 150 mg daily, hydroxyzine 25 mg q.6 hours, lamotrigine 50 mg b.i.d., levothyroxine 50 mcg daily for hypothyroidism, lisinopril 20 mg daily, lovastatin 20 mg at bedtime, melatonin at bedtime, metformin ER 500 mg daily, and p.r.n. Tylenol. ALLERGIES: No known drug allergies. EXAMINATION: Afebrile, vital signs stable. She is in no distress. She appears chronically ill. She is quite pale. Once again, she is nonverbal. HEENT: Extraocular movements appear to be intact, sclerae nonicteric. Ears intact. Lungs: Clear, though poor short effort. Heart: Regular. Abdomen: Soft, no ntender. Gastrostomy feeding tube present. Extremities: No edema. Skin is warm, dry. She does seem to have generalized weakness. She is not following any commands. IMPRESSION: 1. Acute kidney injury secondary to severe dehydration with electrolyte imbalance in the form of hypercalcemia and hypernatremia - she did respond to IV fluids and hydration. We will continue to monitor her fluid balance and renal function and electrolytes closely. We will obtain followup BMP. 2. Altered mental status secondary to metabolic encephalopathy related to her acute dehydration andacute kidney injury with underlying baseline cognitive impairment related to her history of cerebral palsy or possible Down's syndrome. We will continue to monitor her cognitive status closely. 3. Hypertension - monitor blood pressure closely, make adjustments as needed. 4. Diabetes mellitus type 2 - maintain current diabetic regimen. 5. Functional assessment - she does have generalized weakness. She will be receiving rehab servicesfor overall strengthening condition as tolerated. Overall, condition prognosis is quite guarded. Wewill obtain followup labs including CBC and BMP. Monitor for any seizure activity. Maintain current anticonvulsant therapy. She will be returning back to [place] upon completion of her therapy. DICTATED BY: MD JEN aGlvinE/AQT JOB# [id number] [facility] documented in this encounterChildren[facility]09-17-2024 NoteHNO ID: [id number] Author: MARNIE BOWERS, ? Service: ? Author Type: Physician Type: Progress Notes Filed: 04/28/2024 08:25 Note Text: [facility] NOTE NAME: [facility] [employer] NO.: [id number] DATE OF SERVICE: 04/26/2024 ATTENDING PHYSICIAN: Marnie Bowers MD [facility] NEW PATIENT HISTORY AND PHYSICAL: HISTORY OF PRESENT ILLNESS: The patient is an 79-year-old female, who is admitted to us from [facility] with a diagnosis of altered mental status secondary to metabolic encephalopathy with underlying cognitive impairment, acute kidney injury secondary to severe dehydration with electrolyte imbalance with severe hypercalcemia and hypernatremia, lactic acidosis, cerebral palsy, diabetes mellitus type 2, hypothyroidism, seizure disorder, osteoporosis, hypertension, hyperlipidemia, and generalized weakness and debility. She was initially admitted to the hospital [place] after developing altered mental status with baseline cognitive decline and decreased oral intake. Evaluation in the hospital did reveal findings consistent with severe dehydration related to her poor oral intake resulting in acute kidney injury and electrolyte imbalance with severe hypernatremia and hypercalcemia. Also, lactic acidosis. She was seen in consultation by the nephrology service. She was given IV fluids for hydration. Followup labs did reveal improvement in her renal function, as well as her electrolytes. The caregiver did request placement of gastrostomy feeding tube to help with her oral intake. She was seen by the Gastroenterology Service and did undergo placement of a gastrostomy feeding tube, which she tolerated well. Her condition was stabilized and she is now admitted to our facility for continued therapy prior to returning back to her [place]. REVIEW OF SYSTEMS: The patient is currently sitting up in bed. She is awake and looking around, but nonverbal. This apparently is her baseline. She is in no distress. Nursing reports no respiratory distress, chest pain or discomfort, abdominal pain, nausea, vomiting, or bleeding. She has been tolerating her tube feedings. FAMILY HISTORY: Significant for hypertension. SOCIAL/FUNCTIONAL HISTORY: No history of smoking or alcohol abuse. Once again, she has been living in a [place]. MEDICATIONS: Alendronate 70 mg weekly, aripiprazole 10 mg daily, calcium with vitamin D b.i.d., calcium carbonate b.i.d., carbamazepine 100 mg daily, ferrous fumarate capsule daily, cyanocobalamin 1 mg daily, diazepam 1 mg q.a.m., docusate daily, ergocalciferol 50,000 units weekly, fluconazole 150 mg daily, hydroxyzine 25 mg q.6 hours, lamotrigine 50 mg b.i.d., levothyroxine 50 mcg daily for hypothyroidism, lisinopril 20 mg daily, lovastatin 20 mg at bedtime, melatonin at bedtime, metformin ER 500 mg daily, and p.r.n. Tylenol. ALLERGIES: No known drug allergies. EXAMINATION: Afebrile, vital signs stable. She is in no distress. She appears chronically ill. She is quite pale. Once again, she is nonverbal. HEENT: Extraocular movements appear to be intact, sclerae nonicteric. Ears intact. Lungs: Clear, though poor short effort. Heart: Regular. Abdomen: Soft, nontender. Gastrostomy feeding tube present. Extremities: No edema. Skin is warm, dry. She does seem to have generalized weakness. She is not following any commands. IMPRESSION: 1. Acute kidney injury secondary to severe dehydration with electrolyte imbalance in the form of hypercalcemia and hypernatremia - she did respond to IV fluids and hydration. We will continue to monitor her fluid balance and renal function and electrolytes closely. We will obtain followup BMP. 2. Altered mental status secondary to metabolic encephalopathy related to her acute dehydration and acute kidney injury with underlying baseline cognitive impairment related to her history of cerebral palsy or possible Down's syndrome. We will continue to monitor her cognitive status closely. 3. Hypertension - monitor blood pressure closely, make adjustments as needed. 4. Diabetes mellitus type 2 - maintain current diabetic regimen. 5. Functional assessment - she does have generalized weakness. She will be receiving rehab services for overall strengthening condition as tolerated. Overall, condition prognosis is quite guarded. We will obtain followup labs including CBC and BMP. Monitor for any seizure activity. Maintain current anticonvulsant therapy. She will be returning back to her [place] upon completion of her therapy. DICTATED BY: Marnie Bowers MD IAE/JOSET JOB# [id number] [facility]09-16-2024 History of Present illness Narrative* EUGENE Amaya - 04/25/2024 4:41 PM EDT Pt reviewed during Care Rounds today and she is ready for discharge. Pt has been accepted by [facility]. Spoke to caregiver/Alise with an update [facility] is [place]. We reviewed the IM with no questions/concerns- copy added to pt's chart, another copy emailed to Alise. Update also called to [employer] certified orthotist practice manager, Shanda, and pt's legal guardian with [employer], Alise Gibson. Final updates/orders attached in [facility], the [facility] exemption was completed by MARIA L/Annika, and transportation arranged via [employer] for 430pm. No further needs identified. EUGENE Amaya * Erin Jacques MD - 04/24/2024 7:51 AM EDT Mik Shelton is a 79 y.o. female on day 7 of admission presenting with Altered mental status, unspecified altered mental status type. Subjective Patient seen and examined at the bedside. She is not very responsive. Unable to verbalize anything.She does appear comfortable and not in pain. She had a PEG tube placed recently Objective Last Recorded Vitals BP 124/57 (BP Location: Right leg, Patient Position: Lying) Pulse 74 Temp 36.1 C (97 F) (Temporal) Resp 18 Wt 50.5 kg (111 lb 5.3 oz) SpO2 99% Intake/Output last 3 Shifts: Intake/Output Summary (Last 24 hours) at 04/25/2024 0751 Last data filed at 04/25/2024 0600 Gross per 24 hour Intake 1276 ml Output 2400 ml Net -1124 ml Admission Weight Weight: 51.5 kg (113 lb 8.6 oz) (04/18/24 1348) Daily Weight 04/22/24 : 50.5 kg (111 lb 5.3 oz) Image Results Esophagogastroduodenoscopy (EGD) w PEG Tube Placement Table formatting from the original result was not included. Impression PEG tube placed in the body of the stomach Single ulcer in the 1st part of the duodenum with clean base (Lino III) Findings A PEG tube measuring 20 Fr was placed in the body of the stomach using a deformable internal bolster via the pull technique after the site was identified via transillumination, visualized indentation and needle passed through abdominal wall; distance from external bolster to external end of tube: 3 cm; scope reinserted and tube rotated freely to confirm placement Single 2 mm x 3 mm superficial, linear, benign-appearing ulcer in the 1st part of the duodenum with clean base (Lino III) Recommendation Follow up with primary eyewear consultant Indication Severe dehydration, Intellectual functioning disability, Abnormal intentional weight loss, Altered mental status, unspecified altered mental status type Staff Staff Role No Staff Documented Medications See Anesthesia Record. Preprocedure A history and physical has been performed, and patient medication allergies have been reviewed. The patient's tolerance of previous anesthesia has been reviewed. The risks and benefits of the procedure and the sedation options and risks were discussed with the patient and care team . All questions were answered and informed consent obtained. Details of the Procedure The patient underwent monitored anesthesia care, which was administered by an anesthesia professional. The patient's blood pressure, ECG, ETCO2, heart rate, level of consciousness, oxygen and respirations were monitored throughout the procedure. The scope was introduced through the mouth and advanced to the second part of the duodenum. Retroflexion was performed in the cardia. Prior to the procedure, the patient's H. Pylori status was unknown. The patient experienced no blood loss. The procedure was not difficult. The patient tolerated the procedure well. There were no apparent adverse events. Events Procedure Events Event Event Time ENDO SCOPE IN TIME 04/22/2024 8:51 AM ENDO SCOPE OUT TIME 04/22/2024 8:58 AM Specimens No specimens collected Procedure Location [facility] [place] [address] [facility] [id number] Referring Provider Clara Jones DO Procedure Provider Clara Jones DO ECG 12 lead Sinus tachycardia Possible Anterior infarct , age undetermined Abnormal ECG When compared with ECG of 18-APR-2024 01:59, (unconfirmed) Vent. rate has increased BY 34 BPM Borderline criteria for Anterior infarct are now Present Nonspecific T wave abnormality now evident in Inferior leads Nonspecific T wave abnormality now evident in Lateral leads QT has shortened See ED provider note for full interpretation and clinical correlation Confirmed by Meri Montoya ([id number]) on 04/24/2024 11:05:22 AM Physical Exam Constitutional: Comments: Awake, nonresponsive nonverbal HENT: Head: Normocephalic and atraumatic. Nose: Nose normal. Mouth/Throat: Mouth: Mucous membranes are moist. Eyes: Extraocular Movements: Extraocular movements intact. Pupils: Pupils are equal, round, and reactive to light. Cardiovascular: Rate and Rhythm: Normal rate. Pulses: Normal pulses. Pulmonary: Effort: Pulmonary effort is normal. Abdominal: Palpations: Abdomen is soft. Comments: PEG tube placed Musculoskeletal: Cervical back: Normal range of motion. Comments: Bilateral upper and lower extremity contractures seen Skin: General: Skin is dry. Capillary Refill: Capillary refill takes less than 2 seconds. Neurological: General: No focal deficit present. Relevant Results Scheduled medications ARIPiprazole, 10 mg, oral, Nightly carBAMazepine, 100 mg, oral, Nightly docusate sodium, 100 mg, oral, Daily enoxaparin, 30 mg, subcutaneous, q24h lamoTRIgine, 50 mg, oral, BID levothyroxine, 50 mcg, oral, Daily mupirocin, , Topical, BID polyethylene glycol, 17 g, oral, Daily pravastatin, 20 mg, oral, Nightly Continuous medications sodium chloride, 75 mL/hr, Last Rate: 75 mL/hr (04/25/24 0600) PRN medications PRN medications: acetaminophen OR acetaminophen OR acetaminophen, acetaminophen OR acetaminophen OR acetaminophen, LORazepam, ondansetron ODT OR ondansetron Assessment/Plan This patient currently has cardiac telemetry ordered; if you would like to modify or discontinue the telemetry order, click here to go to the orders activity to modify/discontinue the order. Assessment & Plan Altered mental status, unspecified altered mental status type Seizures (Multi) Developmental delay 79-year-old female with a past medical history of cerebral palsy, type 2 diabetes mellitus, osteoporosis, seizures, hypothyroidism, hypertension, hyperlipidemia presents with metabolic encephalopathy, lactic acidosis and dehydration from poor oral intake. She was hyponatremic hypercalcemic on admiss ion Plan Patient was fluid resuscitated. She had calcitonin for hypercalcemia calcium levels are better She had poor oral intake. Had a PEG tube placed currently being tube feeding Tube feeding at goal rate Replete electrolyte as needed Her blood numbers look appropriate Hemoglobin is stable Continue home medications Abilify, carbamazepine, lamotrigine, levothyroxine bowel bowel regimen DVT prophylaxis: Lovenox GI prophylaxis: Not required Full code Erin Jacques MD * Erin Jacques MD - 04/23/2024 6:02 PM EDT Mik Shelton is a 79 y.o. female on day 5 of admission presenting with Altered mental status, unspecified altered mental status type. Subjective Patient seen and examined at the bedside. She is not very responsive. Unable to verbalize anything.She does appear comfortable and not in pain. She had a PEG tube placed recently Objective Last Recorded Vitals BP 127/54 Pulse 81 Temp 36.5 C (97.7 F) (Temporal) Resp 24 Wt 50.5 kg (111 lb 5.3 oz) SpO2 97% Intake/Output last 3 Shifts: Intake/Output Summary (Last 24 hours) at 04/23/2024 1802 Last data filed at 04/23/2024 1600 Gross per 24 hour Intake 2532.75 ml Output 1550 ml Net 982.75 ml Admission Weight Weight: 51.5 kg (113 lb 8.6 oz) (04/18/24 1348) Daily Weight 04/22/24 : 50.5 kg (111 lb 5.3 oz) Image Results ECG 12 lead Sinus tachycardia Possible Anterior infarct , age undetermined Abnormal ECG When compared with ECG of 18-APR-2024 01:59, (unconfirmed) Vent. rate has increased BY 34 BPM Borderline criteria for Anterior infarct are now Present Nonspecific T wave abnormality now evident in Inferior leads Nonspecific T wave abnormality now evident in Lateral leads QT has shortened CT head wo IV contrast Narrative: Interpreted By: Selma Moya, STUDY: CT HEAD WO IV CONTRAST; 04/18/2024 11:14 am INDICATION: Signs/Symptoms:MENTAL STATUS CHANGE. COMPARISON: 02/10/2023 ACCESSION NUMBER(S): [id number] ORDERING CLINICIAN: LAZARO HANDY TECHNIQUE: Examination was performed in the axial plane with sagittal and coronal reconstructions. Bone and soft tissue algorithms were performed. FINDINGS: INTRACRANIAL: Status post bifrontal craniotomies. 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 This is unchanged. No mass or mass effect is identified. There is no hemorrhage or subdural fluid collection. There is no acute infarct. EXTRACRANIAL: Visualized paranasal sinuses and mastoids are clear. Impression: 1. No acute intracranial pathology. 2. 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 MACRO: None Signed by: Selma Moya 04/18/2024 11:31 AM Dictation workstation: [id number] XR chest 1 view Narrative: Interpreted By: Uriel Encarnacion, STUDY: XR CHEST 1 VIEW; 04/18/2024 9:23 am INDICATION: Signs/Symptoms:MENTAL STATUS CHANGE. COMPARISON: 02/10/2023. ACCESSION NUMBER(S): [id number] ORDERING CLINICIAN: LAZARO HANDY FINDINGS: CARDIOMEDIASTINAL SILHOUETTE: Patient is rotated to the left. Dense aortic calcifications are again seen. Cardiac silhouette is stable and not significantly enlarged. LUNGS: Inspiratory volume is low. No focal infiltrate. No definite pleural effusion. No pneumothorax is seen. ABDOMEN: No remarkable upper abdominal findings. BONES: Thoracic dextrocurvature may be partially exaggerated by positioning. Multilevel endplate spurring present in the spine. Degenerative changes of the shoulders are partially visualized. Impression: 1. No evidence of acute cardiopulmonary process. MACRO: None. Signed by: Uriel Encarnacion 04/18/2024 10:03 AM Dictation workstation: [id number] Physical Exam Constitutional: Comments: Awake, nonresponsive nonverbal HENT: Head: Normocephalic and atraumatic. Nose: Nose normal. Mouth/Throat: Mouth: Mucous membranes are moist. Eyes: Extraocular Movements: Extraocular movements intact. Pupils: Pupils are equal, round, and reactive to light. Cardiovascular: Rate and Rhythm: Normal rate. Pulses: Normal pulses. Pulmonary: Effort: Pulmonary effort is normal. Abdominal: Palpations: Abdomen is soft. Comments: PEG tube placed Musculoskeletal: Cervical back: Normal range of motion. Comments: Bilateral upper and lower extremity contractures seen Skin: General: Skin is dry. Capillary Refill: Capillary refill takes less than 2 seconds. Neurological: General: No focal deficit present. Relevant Results Scheduled medications ARIPiprazole, 10 mg, oral, Nightly carBAMazepine, 100 mg, oral, Nightly docusate sodium, 100 mg, oral, Daily enoxaparin, 30 mg, subcutaneous, q24h lamoTRIgine, 50 mg, oral, BID levothyroxine, 50 mcg, oral, Daily mupirocin, , Topical, BID polyethylene glycol, 17 g, oral, Daily pravastatin, 20 mg, oral, Nightly Continuous medications sodium chloride, 75 mL/hr, Last Rate: 75 mL/hr (04/23/24 1222) PRN medications PRN medications: acetaminophen OR acetaminophen OR acetaminophen, acetaminophen OR acetaminophen OR acetaminophen, LORazepam, ondansetron ODT OR ondansetron, oxygen Assessment/Plan This patient currently has cardiac telemetry ordered; if you would like to modify or discontinue the telemetry order, click here to go to the orders activity to modify/discontinue the order. Assessment & Plan 79-year-old female with a past medical history of cerebral palsy, type 2 diabetes mellitus, osteoporosis, seizures, hypothyroidism, hypertension, hyperlipidemia presents with metabolic encephalopathy, lactic acidosis and dehydration from poor oral intake. She was hyponatremic hypercalcemic on admiss ion Plan Patient was fluid resuscitated. She had calcitonin for hypercalcemia calcium levels are better She had poor oral intake. Had a PEG tube placed currently being tube feeding Replete electrolyte as needed Her blood numbers look appropriate Hemoglobin is stable Continue home medications Abilify, carbamazepine, lamotrigine, levothyroxine bowel bowel regimen DVT prophylaxis: Lovenox GI prophylaxis: Not required Full code Erin Jacques MD * Jorge Roberts MD - 04/22/2024 10:21 PM EDT Mik Shelton is a 79 y.o. female on day 4 of admission presenting with Altered mental status, unspecified altered mental status type. Subjective Nonverbal non communicative Objective Physical Exam General Appearance: AAO x 0, seems comfortable Skin: skin color pale, warm, and dry; no suspicious rashes or lesions Eyes : PERRL, EOM's intact ENT: mucous membranes pink and dry Neck: normocephalic Respiratory: Diminished at bases bilaterally Heart: regular rate and rhythm. Abdomen: Nondistended, positive bowel sounds x4, soft, nontender Extremities: no edema Peripheral pulses: normal x4 extremities Neuro: Unable to assess, slight contractures in lower extremities. Patient does not follow commands. Cerebral palsy Last Recorded Vitals Blood pressure (!) 136/118, pulse 97, temperature 35.6 C (96.1 F), resp. rate 23, height 1.55 m (5'1.02), weight 50.5 kg (111 lb 5.3 oz), SpO2 100%. Intake/Output last 3 Shifts: I/O last 3 completed shifts: In: 2764.8 (54.7 mL/kg) [P.O.:120; I.V.:2448.8 (48.5 mL/kg); NG/GT:146; IV Piggyback:50] Out: 600 (11.9 mL/kg) [Urine:600 (0.3 mL/kg/hr)] Weight: 50.5 kg Relevant Results Scheduled medications ARIPiprazole, 10 mg, oral, Nightly carBAMazepine, 100 mg, oral, Nightly docusate sodium, 100 mg, oral, Daily enoxaparin, 30 mg, subcutaneous, q24h lamoTRIgine, 50 mg, oral, BID levothyroxine, 50 mcg, oral, Daily mupirocin, , Topical, BID polyethylene glycol, 17 g, oral, Daily pravastatin, 20 mg, oral, Nightly Continuous medications sodium chloride, 75 mL/hr, Last Rate: 75 mL/hr (04/22/24 1009) PRN medications PRN medications: acetaminophen OR acetaminophen OR acetaminophen, acetaminophen OR acetaminophen OR acetaminophen, LORazepam, ondansetron ODT OR ondansetron, oxygen Results for orders placed or performed during the hospital encounter of 04/18/24 (from the past 24 hour(s)) CBC Result Value Ref Range WBC 8.9 4.4 - 11.3 x10*3/uL nRBC 0.0 0.0 - 0.0 /100 WBCs RBC 2.79 (L) 4.00 - 5.20 x10*6/uL Hemoglobin 8.7 (L) 12.0 - 16.0 g/dL Hematocrit 28.6 (L) 36.0 - 46.0 % MCV 103 (H) 80 - 100 fL MCH 31.2 26.0 - 34.0 pg MCHC 30.4 (L) 32.0 - 36.0 g/dL RDW 13.2 11.5 - 14.5 % Platelets 207 150 - 450 x10*3/uL Basic metabolic panel Result Value Ref Range Glucose 128 (H) 74 - 99 mg/dL Sodium 140 136 - 145 mmol/L Potassium 4.1 3.5 - 5.3 mmol/L Chloride 114 (H) 98 - 107 mmol/L Bicarbonate 21 21 - 32 mmol/L Anion Gap 9 (L) 10 - 20 mmol/L Urea Nitrogen 34 (H) 6 - 23 mg/dL Creatinine 1.43 (H) 0.50 - 1.05 mg/dL eGFR 37 (L) >60 mL/min/1.73m*2 Calcium 7.4 (L) 8.6 - 10.3 mg/dL POCT GLUCOSE Result Value Ref Range POCT Glucose 94 74 - 99 mg/dL Assessment/Plan Assessment & Plan Altered mental status, unspecified altered mental status type Seizures (Multi) Developmental delay 79-year-old female with history of Cerebral palsy Diabetes mellitus type 2 Osteoporosis Seizures Hypothyroidism Hypertension Hyperlipidemia Presented with Metabolic encephalopathy Lactic acidosis Dehydration UTI RASHIDA Hypernatremia Hypercalcemia Anemia Plan Continue close monitoring Status post calcitonin during this admission and calcium restored S/p D5W and sodium levels are normalized Daily CBC BMP and monitor urine output Fall, aspiration, seizure precautions Nutrition Status post PEG Tube feeding Watch and replete electrolytes as deemed appropriate Hold nephrotoxic medicines, metformin and BRYANT inhibitors Follow vitals and clinical progress Lovenox for DVT prophylaxis Tylenol for pain or fever in case Follow case management for discharge planning to SNF possibly tomorrow if stable Avoid sedatives and watch polypharmacy Continue current medicines On Abilify, carbamazepine, Lamictal, Colace, Synthroid, pravastatin Status post antibiotics, urine cultures with contamination Follow BMP closely, creatinine trend better Hydrate well Jorge Roberts MD * KYLAH Reid - 04/22/2024 7:05 PM EDT Food And Beverage Cashier spent significant time on this case over the course of the day today. Per [facility] cnc machine programmer/Shanda, [facility] would be facility of choice for [facility] staff, but [facility] is not able toconfirm acceptance before Thursday AM. [facility] could be a second choice. [facility]'s [facility]/Shanda also stated that [facility] may not be able to complete the discharge of patient from [facility] over the weekend--which is a required process in order for patient's rehab stay to be covered at SNF under patient's Medicare. SW attached/sent updated notes via [employer] over the course of the day. Reviewed patient's Medicare IM with [facility]/Shanda, and emailed copy of same to Shanda and patient's legal guardian through [employer]. [See previous notes.] Plan: NO DISCHARGE BEFORE ; [facility] still reviewing referral; patient is vulnerable and needs to have all plans cleared [place] [facility] [place] well as through legal guardian/ELLIS/Alise. Care Transitions to follow and assist. KYLAH Lanier * Leah Camara CCC-FIVE ROLL REFINER BATCH MIXER - 04/22/2024 10:16 AM EDT Speech-Language Pathology Therapy Communication Note Patient Name: Mik Shetlon Department: [facility] Room: 334/334-A Today's Date: 04/22/2024 Discipline: Speech Language Pathology Missed Visit Reason: Patient unavailable. Missed Time: Attempt Comment: Patient in OR for PEG tube placement. Will re-attempt treatment as appropriate and schedule permits. Second attempt made - patient returned to floor. [employer]LL REFIN[employer] BATCH MIXER spoke with bedside nurse. D/T PEG tube placement, F[employer] REFIN[employer] BATCH MIXER and nurse deferred ST services. Patient to be discharged from caseload at this time. * Jorge Roberts MD - 04/21/2024 6:41 PM EDT Mik Shelton is a 79 y.o. female on day 3 of admission presenting with Altered mental status, unspecified altered mental status type. Subjective Nonverbal noncommunicative Objective Physical Exam General Appearance: AAO x 0, seems comfortable Skin: skin color pale, warm, and dry; no suspicious rashes or lesions Eyes : PERRL, EOM's intact ENT: mucous membranes pink and dry Neck: normocephalic Respiratory: Diminished at bases bilaterally Heart: regular rate and rhythm. Abdomen: Nondistended, positive bowel sounds x4, soft, nontender Extremities: no edema Peripheral pulses: normal x4 extremities Neuro: Unable to assess, slight contractures in lower extremities. Patient does not follow commands. Cerebral palsy Last Recorded Vitals Blood pressure 104/61, pulse 83, temperature 36.1 C (97 F), temperature source Temporal, resp. rate23, height 1.55 m (5' 1.02), weight 50.5 kg (111 lb 5.3 oz), SpO2 98%. Intake/Output last 3 Shifts: I/O last 3 completed shifts: In: 4238.3 (83.9 mL/kg) [I.V.:4238.3 (83.9 mL/kg)] Out: 3450 (68.3 mL/kg) [Urine:3450 (1.9 mL/kg/hr)] Weight: 50.5 kg Relevant Results Scheduled medications ARIPiprazole, 10 mg, oral, Nightly carBAMazepine, 100 mg, oral, Nightly docusate sodium, 100 mg, oral, Daily enoxaparin, 30 mg, subcutaneous, q24h lamoTRIgine, 50 mg, oral, BID levothyroxine, 50 mcg, oral, Daily mupirocin, , Topical, BID polyethylene glycol, 17 g, oral, Daily pravastatin, 20 mg, oral, Nightly Continuous medications sodium chloride, 75 mL/hr, Last Rate: 75 mL/hr (04/21/24 1736) PRN medications PRN medications: acetaminophen OR acetaminophen OR acetaminophen, acetaminophen OR acetaminophen OR acetaminophen, LORazepam, ondansetron ODT OR ondansetron, oxygen Results for orders placed or performed during the hospital encounter of 04/18/24 (from the past 24 hour(s)) Basic Metabolic Panel Result Value Ref Range Glucose 71 (L) 74 - 99 mg/dL Sodium 144 136 - 145 mmol/L Potassium 3.4 (L) 3.5 - 5.3 mmol/L Chloride 112 (H) 98 - 107 mmol/L Bicarbonate 27 21 - 32 mmol/L Anion Gap 8 (L) 10 - 20 mmol/L Urea Nitrogen 34 (H) 6 - 23 mg/dL Creatinine 1.16 (H) 0.50 - 1.05 mg/dL eGFR 48 (L) >60 mL/min/1.73m*2 Calcium 8.6 8.6 - 10.3 mg/dL CBC Result Value Ref Range WBC 9.2 4.4 - 11.3 x10*3/uL nRBC 0.0 0.0 - 0.0 /100 WBCs RBC 3.16 (L) 4.00 - 5.20 x10*6/uL Hemoglobin 10.2 (L) 12.0 - 16.0 g/dL Hematocrit 31.8 (L) 36.0 - 46.0 % MCV 101 (H) 80 - 100 fL MCH 32.3 26.0 - 34.0 pg MCHC 32.1 32.0 - 36.0 g/dL RDW 12.4 11.5 - 14.5 % Platelets 219 150 - 450 x10*3/uL SST TOP Result Value Ref Range Extra Tube Hold for add-ons. Malnutrition Diagnosis Status: New Malnutrition Diagnosis: Moderate malnutrition related to chronic disease or condition As Evidenced by: poor PO intake >7 days, mild loss of subcutaneous fat and muscle I agree with the dietitian's malnutrition diagnosis. Assessment/Plan Assessment & Plan Altered mental status, unspecified altered mental status type 79-year-old female with history of Cerebral palsy Diabetes mellitus type 2 Osteoporosis Seizures Hypothyroidism Hypertension Hyperlipidemia Presented with Metabolic encephalopathy Lactic acidosis and dehydration UTI RASHIDA Hypernatremia Hypercalcemia Anemia Plan Continue cardiopulmonary monitoring Status post calcitonin and calcium restored Status post D5W and sodium levels normalized Daily CBC BMP and monitor urine output Follow mentation Fall, aspiration, seizure precautions Nutrition [employer] REFIN[employer] BATCH MIXER following Plan for PEG tube Synthroid, Lamictal, pravastatin to continue as able Monitor fingerstick Continue home medicines swallow precaution as tolerated Hold nephrotoxic medicines, metformin and BRYANT inhibitors Follow vitals and clinical progress Follow palliative care Lovenox for DVT prophylaxis Tylenol for mild pain and fever in case Follow case management Avoid sedatives, watch polypharmacy Jorge Roberts MD * CARMEN Kee - 04/21/2024 12:21 PM EDT Speech-Language Pathology [employer] REFIN[employer] B[employer] MIXER Adult Inpatient Speech-Language Pathology Clinical Swallow Evaluation Patient Name: Mik Shelton Today's Date: 04/21/2024 Time Calculation Start Time: 1025 Stop Time: 1035 Time Calculation (min): 10 min Current Problem: 1. Altered mental status, unspecified altered mental status type 2. Severe dehydration 3. Hypercalcemia 4. Lactic acidosis 5. Hypernatremia Recommendations: Risk for Aspiration: Yes Solid Diet Recommendations : Pureed/extremely thick (IDDSI Level 4) Liquid Diet Recommendations: Honey thick/liquidised/moderately thick (IDDS Level 3) Compensatory Swallowing Strategies: Decrease distractions during eating/feeding, Upright 90 degreesas possible for all oral intake, One to one assist with meals, Alternate solids and liquids, No straws, Single sips, Small bites/sips, Eat/feed slowly Medication Administration Recommendations: Crushed, With Pureed Dysphagia Goals: Patient will tolerate recommended diet without observed clinical signs of aspiration, Patient will demonstrate appropriate strategies for swallowing safety, Patient will progress to advanced diet Assessment: Prognosis: Good Barriers to Discharge: none Treatment Provided: No Medical Staff Made Aware: Yes Strengths: Family/Caregiver Support Barriers: Comorbidities Plan: Inpatient/Swing Bed or Outpatient: Inpatient Treatment/Interventions: Bolus trials, Assess diet tolerance, Diet recommendations F[employer]LL REFINER BATCH MIXER Plan: Skilled [employer] ROLL REFINER BATCH MIXER FIVE ROLL REFINER BATCH MIXER Frequency: 3x daily until discharge Duration: 1 week [employer] ROLL REFINER BATCH MIXER Discharge Recommendations: Continue skilled FIVE ROLL REFINER BATCH MIXER services at the next level of care Diet Recommendations: Solid, Liquid Solid Consistency: Pureed/extremely thick (IDDSI Level 4) Liquid Consistency: Honey thick/moderately thick (IDDS Level 3) Discussed POC: Patient, Nursing Discussed Risks/Benefits: Yes, Patient, Nursing Patient/Caregiver Agreeable: Yes F[employer] ROLL REFINER BATCH MIXER - OK to Discharge: Yes Subjective Mik Shelton is a 79 y.o. female received a swallowing evaluation to r/o aspiration. Bedside nurse reported pt is from [facility] and has been doing well with pureed foods. Bedside nurse reported pt coughed on NTL. Mik Shelton unable to complete any intake questions or EAT-10. General Visit Information: Patient Class: Inpatient Living Environment: senior living Reason for Referral: Swallow Evaluation r/o aspiration Referred By: Armando Past Medical History Relevant to Rehab: diabetes type 2, hypothyroid, intellectual function disability, HTN ,mixed hyperlipidemia, altered mental status Patient Seen During This Visit: Yes Total Number of Visits : 1 Prior to Session Communication: Bedside nurse Reviewed Procedures and Risks: Yes Date of Onset: 04/18/24 Date of Order: 04/21/24 [employer] Diet: puree; NTL Current Diet : puree; NTL Dysphagia Diagnosis: Moderate oral stage dysphagia, Mild to moderate pharyngeal stage dysphagia Objective Goals: In 1 week... 1. Patient will tolerate prescribed diet with no overt s/s of aspiration or penetration in 80% of trials. GOAL START: 04/21/2024 ANT. END: 04/28/24 GOAL END: 2. Patient will complete PO trials for diet upgrade with no overt s/s of aspiration or penetration in 90% of trials. GOAL START: 04/21/2024 ANT. END: 04/28/24 GOAL END: 3. Patient will demonstrate safe swallow strategies with MIN verbal cues with 80% accuracy. GOAL START: 04/21/2024 ANT. END: 04/28/24 GOAL END: Baseline Assessment: Respiratory Status: Room air Behavior/Cognition: Confused, Doesn't follow directions Vision: Functional for self-feeding Hearing: Within Functional Limits Patient Positioning: Upright in Chair Pain: Pain Assessment Pain Assessment: PAINAD (Pain Assessment in Advanced Dementia Scale) PAINAD (Pain Assessment in Advanced Dementia) Breathing: Normal Negative Vocalization: None Facial Expression: Smiling or inexpressive Body Language: Relaxed Consolability: No need to console PAINAD Score: 0 Oral/Motor Assessment: Oral Hygiene: cracked and dry oral mucosa Dentition: Edentulous Oral Motor: Unable to Complete Intelligibility: Intelligible Breath Support: Adequate for speech Hearing: Within Functional Limits Consistencies Trialed: Consistencies Trialed: Yes Consistencies Trialed: Thin (IDDSI Level 0) - Spoon, [place] thick/mildly thick (IDDSI Level 2) - Spoon, Honey thick/liquidised/moderately thick (IDDSI Level 3) - Spoon Clinical Observations: Patient Positioning: Upright in Chair Management of Oral Secretions: Adequate Overt Signs or Symptoms of Aspiration: Thin (IDDSI Level 0) - Spoon Multiple Swallows: [place] Thick/Mildly Thick (IDDSI Level 2) - Spoon Immediate Cough: Thin (IDDSI Level 0) - Spoon Pt completed PO trials of the following: -thin liquids single sips via teaspoon F[employer]LL REFINER BATCH MIXER fed: No s/s of aspiration/penetration or vocal quality change in 0% of trials. Mik Shelton coughed immediately. -nectar thick liquids single sips via teaspoon pt fed: No s/s of aspiration/penetration or vocal quality change in 50% of trials. Mik Shelton had immediate cough and multiple swallows for some trials. -honey thick liquids single sips via teaspoon pt fed: No s/s of aspiration/penetration or vocal quality change in 100% of trials. -puree via 1/4 teaspoon F[employer] ROLL REFINER BATCH MIXER fed: No s/s of aspiration/penetration or vocal quality change in 100% of trials. Inpatient: Education Documentation Modified Diet Training, taught by CARMEN Kee at 04/21/2024 12:18 PM. Learner: Patient Readiness: Acceptance Method: Explanation Response: No Evidence of Learning Education Comments No comments found. * KYLAH Reid - 04/21/2024 8:30 AM EDT Food And Beverage Cashier received a call from patient's legal guardian through [facility], Alise Gibson (cell today only: [phone]) stating that [employer] will need to speak again with critical child care group leader/ for updated recommendations re: PEG tube vs. Hospice. SW awaits the results of that conversation. - 929: Per Dr. Haas, Dr. Frazier will have a conversation with patient's guardian later this morning. SW/DSC to continue to send updated notes to referral SNFs and [facility]. - 114: SW received a call from patient's [employer] guardian/Alise stating that Alise had consulted with [facility]'s medical nurse, and the [employer] team decided to approve plan for patient's PEG tube placement, assuming patient is still an appropriate candidate for same. [employer] guardian team does not wish to pursue hospice services at this time. SW to update patient's palliative care team at [facility]. SW to update [facility] [place] [facility], and continue to update referral SNFs. Plan for patient to receive PEG tube placement, and then discharge to accepting SNF for adjustment to tube feeds prior to returning to patient's [facility]. Care Transitions to follow and assist as patient's needs become clearer. KYLAH Lanier * Jorge Roberts MD - 04/20/2024 8:13 PM EDT Mik Shelton is a 79 y.o. female on day 2 of admission presenting with Altered mental status, unspecified altered mental status type. Subjective No acute issues overnight Objective Physical Exam General Appearance: AAO x 0, seems comfortable Skin: skin color pale, warm, and dry; no suspicious rashes or lesions Eyes : PERRL, EOM's intact ENT: mucous membranes pink and dry Neck: normocephalic Respiratory: Diminished at bases bilaterally Heart: regular rate and rhythm. Abdomen: Nondistended, positive bowel sounds x4, soft, nontender Extremities: no edema Peripheral pulses: normal x4 extremities Neuro: Unable to assess, slight contractures in lower extremities. Patient does not follow commands. Cerebral palsy Last Recorded Vitals Blood pressure 135/68, pulse 85, temperature 35.7 C (96.3 F), resp. rate 20, height 1.55 m (5' 1.02), weight 51.4 kg (113 lb 5.1 oz), SpO2 98%. Intake/Output last 3 Shifts: I/O last 3 completed shifts: In: 3375.8 (65.7 mL/kg) [I.V.:3375.8 (65.7 mL/kg)] Out: 2700 (52.5 mL/kg) [Urine:2700 (1.5 mL/kg/hr)] Weight: 51.4 kg Relevant Results Scheduled medications ARIPiprazole, 10 mg, oral, Nightly carBAMazepine, 100 mg, oral, Nightly docusate sodium, 100 mg, oral, Daily enoxaparin, 30 mg, subcutaneous, q24h lamoTRIgine, 50 mg, oral, BID levothyroxine, 50 mcg, oral, Daily mupirocin, , Topical, BID polyethylene glycol, 17 g, oral, Daily pravastatin, 20 mg, oral, Nightly Continuous medications sodium chloride, 75 mL/hr, Last Rate: 75 mL/hr (04/20/24 1800) PRN medications PRN medications: acetaminophen OR acetaminophen OR acetaminophen, acetaminophen OR acetaminophen OR acetaminophen, LORazepam, ondansetron ODT OR ondansetron, oxygen Results for orders placed or performed during the hospital encounter of 04/18/24 (from the past 24 hour(s)) CBC Result Value Ref Range WBC 11.3 4.4 - 11.3 x10*3/uL nRBC 0.0 0.0 - 0.0 /100 WBCs RBC 3.02 (L) 4.00 - 5.20 x10*6/uL Hemoglobin 9.4 (L) 12.0 - 16.0 g/dL Hematocrit 31.1 (L) 36.0 - 46.0 % MCV 103 (H) 80 - 100 fL MCH 31.1 26.0 - 34.0 pg MCHC 30.2 (L) 32.0 - 36.0 g/dL RDW 12.7 11.5 - 14.5 % Platelets 216 150 - 450 x10*3/uL Comprehensive Metabolic Panel Result Value Ref Range Glucose 138 (H) 74 - 99 mg/dL Sodium 142 136 - 145 mmol/L Potassium 3.1 (L) 3.5 - 5.3 mmol/L Chloride 107 98 - 107 mmol/L Bicarbonate 28 21 - 32 mmol/L Anion Gap 10 10 - 20 mmol/L Urea Nitrogen 58 (H) 6 - 23 mg/dL Creatinine 1.38 (H) 0.50 - 1.05 mg/dL eGFR 39 (L) >60 mL/min/1.73m*2 Calcium 9.9 8.6 - 10.3 mg/dL Albumin 3.1 (L) 3.4 - 5.0 g/dL Alkaline Phosphatase 52 33 - 136 U/L Total Protein 5.4 (L) 6.4 - 8.2 g/dL AST 14 9 - 39 U/L Bilirubin, Total 0.3 0.0 - 1.2 mg/dL ALT 9 7 - 45 U/L Assessment/Plan Assessment & Plan Altered mental status, unspecified altered mental status type 79-year-old female with history of Cerebral palsy Diabetes mellitus type 2 Osteoporosis Seizures Hypothyroidism Hypertension Hyperlipidemia Presented with Metabolic encephalopathy Lactic acidosis Dehydration UTI RASHIDA Hypernatremia Hypercalcemia Anemia Plan Continue cardiopulmonary monitoring Status post calcitonin, calcium levels normalized, PTH suppressed Status post D5W, sodium levels normalized Daily CBC BMP and monitor urine output Follow mentation Fall, aspiration, seizure precautions Nutrition Hold feeding by mouth, unable to keep up metabolic demands If guardian seeking full care then consider PEG tube placement Monitor fingerstick Continue home medicines as tolerated On Synthroid, Lamictal, pravastatin Hold nephrotoxic medicines, metformin and BRYANT inhibitor's Follow vitals and clinically Follow palliative care to consider hospice, patient declining overall Lovenox for DVT prophylaxis Tylenol for pain or fever in case as well antiemetics Follow case management Jorge Roberts MD * KYLAH Reid - 04/20/2024 12:10 PM EDT Per several conversations with patient's guardian agency [employer] ([employer] guardian/Alise Gibson ([phone]; emergency [phone]), Dr. Haas, ICU nursing, and [facility], there is some discrepancy as to whether or not patient's guardian is choosing for patient to receive PEG tube placement toward the end of the week, vs. beginning to receive new hospice services. Food And Beverage Cashier left a message with [employer] agency, and specifically in the voice mailbox of patient'sAPSI guardian/Alise asking for clarification re: [employer]'s current wishes for patient's plan of care. SW awaits a return call. SW updated medical team and [facility] re: above. SW/DSC to continue to send updated notes to referral SNFs via [facility] as notes available. Per [facility], [facility] is able to accept; [facility], and several others are still considering. - 1630: [facility] [place] has yet to hear again from patient's guardian re: confirmation of plan of care. SW received calls from [facility] stating that they are unable to accept patient, and from [facility] ([facility] stating that they are clinically able to accept patient, pending confirmation of plan. Plan TBD: If Patient receives PEG tube, patient will require SNF prior to returning to [facility] [place] with palliative care services resuming through [facility]. If guardian agency/[employer] were to decide PEG tube not in patient's best interest, hospice level of care would be appropriate. Care Transitions to follow and assist as patient's needs become clearer. KYLAH Handley * Nissa Haas DO - 04/20/2024 9:42 AM EDT Mik Shelton is a 79 y.o. female on day 2 of admission presenting with Altered mental status, unspecified altered mental status type. Subjective Patient seen and examined at the bedside this morning She is resting comfortably in bed No acute events or issues noted Objective Vitals 24HR Heart Rate: [70-88] Temp: [35.5 C (95.9 F)-36.7 C (98.1 F)] Resp: [13-25] BP: (106-143)/(54-81) Weight: [51.4 kg (113 lb 5.1 oz)] SpO2: [91 %-96 %] Intake/Output last 3 Shifts: Intake/Output Summary (Last 24 hours) at 04/20/2024 0942 Last data filed at 04/20/2024 0747 Gross per 24 hour Intake 2447.83 ml Output 1700 ml Net 747.83 ml Physical Exam Constitutional: Comments: She is awake but nonverbal HENT: Head: Normocephalic and atraumatic. Right Ear: External ear normal. Left Ear: External ear normal. Nose: Nose normal. Mouth/Throat: Mouth: Mucous membranes are moist. Pharynx: Oropharynx is clear. Eyes: Extraocular Movements: Extraocular movements intact. Conjunctiva/sclera: Conjunctivae normal. Pupils: Pupils are equal, round, and reactive to light. Cardiovascular: Rate and Rhythm: Normal rate and regular rhythm. Pulmonary: Effort: Pulmonary effort is normal. Breath sounds: Normal breath sounds. Abdominal: General: Abdomen is flat. Palpations: Abdomen is soft. Skin: General: Skin is warm and dry. Neurological: Comments: Awake, appears comfortable Nonverbal and not following any commands Scheduled medications ARIPiprazole, 10 mg, oral, Nightly carBAMazepine, 100 mg, oral, Nightly docusate sodium, 100 mg, oral, Daily enoxaparin, 30 mg, subcutaneous, q24h lamoTRIgine, 50 mg, oral, BID levoFLOXacin, 250 mg, intravenous, q48h levothyroxine, 50 mcg, oral, Daily mupirocin, , Topical, BID polyethylene glycol, 17 g, oral, Daily potassium chloride CR, 40 mEq, oral, Once pravastatin, 20 mg, oral, Nightly Continuous medications dextrose 5%, 100 mL/hr, Last Rate: 100 mL/hr (04/20/24 0848) PRN medications PRN medications: acetaminophen OR acetaminophen OR acetaminophen, acetaminophen OR acetaminophen OR acetaminophen, LORazepam, ondansetron ODT OR ondansetron, oxygen Relevant Results Assessment/Plan This patient currently has cardiac telemetry ordered; if you would like to modify or discontinue the telemetry order, click here to go to the orders activity to modify/discontinue the order. Assessment & Plan Altered mental status, unspecified altered mental status type Acute renal failure with azotemia: Improving nicely Hypernatremia: Resolved Hypercalcemia-resolved Cerebral palsy Recent weight loss Hypothyroidism Plan: At this time her metabolic parameters have returned to pretty much normal renal function continues to show signs of improvement I will change IV fluids to half-normal saline Sodium has corrected to normal calcium is also corrected to normal PTH is suppressed At this time I will defer management to palliative care From my standpoint I would say that I do not think she is going to be able to keep up with her metabolic demands. I do think hospice would be quite appropriate as she appears to be declining. If full care is desired going forward then would need a feeding tube most likely Please call with any further issues or needs Nissa Haas DO * Jorge Roberts MD - 04/19/2024 9:23 PM EDT Mik Shelton is a 79 y.o. female on day 1 of admission presenting with Altered mental status, unspecified altered mental status type. Subjective Metabolic parameters improving Significant improvement in calcium level Dehydration better Mentation slightly better than yesterday No nausea vomiting diarrhea Failure to thrive, decreased p.o. intake Poor nutrition Altered mental status from baseline Objective Physical Exam General Appearance: AAO x 0, ill-appearing Skin: skin color pale, warm, and dry; no suspicious rashes or lesions Eyes : PERRL, EOM's intact ENT: mucous membranes pink and dry Neck: normocephalic Respiratory: Diminished at bases bilaterally Heart: regular rate and rhythm. Abdomen: Nondistended, positive bowel sounds x4, soft, nontender Extremities: no edema Peripheral pulses: normal x4 extremities Neuro: Unable to assess, slight contractures in lower extremities. Patient does not follow commands. Cerebral palsy Last Recorded Vitals Blood pressure 122/58, pulse 77, temperature 35.5 C (95.9 F), temperature source Temporal, resp. rate 20, height 1.55 m (5' 1.02), weight 51.4 kg (113 lb 5.1 oz), SpO2 94%. Intake/Output last 3 Shifts: I/O last 3 completed shifts: In: 4673.7 (90.9 mL/kg) [I.V.:2165.3 (42.1 mL/kg); IV Piggyback:2508.3] Out: 750 (14.6 mL/kg) [Urine:750 (0.4 mL/kg/hr)] Weight: 51.4 kg Relevant Results Scheduled medications ARIPiprazole, 10 mg, oral, Nightly carBAMazepine, 100 mg, oral, Nightly docusate sodium, 100 mg, oral, Daily enoxaparin, 30 mg, subcutaneous, q24h lamoTRIgine, 50 mg, oral, BID [START ON 04/20/2024] levoFLOXacin, 250 mg, intravenous, q48h levothyroxine, 50 mcg, oral, Daily mupirocin, , Topical, BID polyethylene glycol, 17 g, oral, Daily pravastatin, 20 mg, oral, Nightly Continuous medications dextrose 5%, 100 mL/hr, Last Rate: 100 mL/hr (04/19/24 1231) PRN medications PRN medications: acetaminophen OR acetaminophen OR acetaminophen, acetaminophen OR acetaminophen OR acetaminophen, LORazepam, ondansetron ODT OR ondansetron, oxygen Results for orders placed or performed during the hospital encounter of 04/18/24 (from the past 24 hour(s)) CBC Result Value Ref Range WBC 11.2 4.4 - 11.3 x10*3/uL nRBC 0.0 0.0 - 0.0 /100 WBCs RBC 3.11 (L) 4.00 - 5.20 x10*6/uL Hemoglobin 9.8 (L) 12.0 - 16.0 g/dL Hematocrit 33.3 (L) 36.0 - 46.0 % MCV 107 (H) 80 - 100 fL MCH 31.5 26.0 - 34.0 pg MCHC 29.4 (L) 32.0 - 36.0 g/dL RDW 13.2 11.5 - 14.5 % Platelets 228 150 - 450 x10*3/uL Comprehensive metabolic panel Result Value Ref Range Glucose 120 (H) 74 - 99 mg/dL Sodium 155 (H) 136 - 145 mmol/L Potassium 3.5 3.5 - 5.3 mmol/L Chloride 116 (H) 98 - 107 mmol/L Bicarbonate 35 (H) 21 - 32 mmol/L Anion Gap 8 (L) 10 - 20 mmol/L Urea Nitrogen 97 (HH) 6 - 23 mg/dL Creatinine 1.92 (H) 0.50 - 1.05 mg/dL eGFR 26 (L) >60 mL/min/1.73m*2 Calcium 12.5 (H) 8.6 - 10.3 mg/dL Albumin 3.3 (L) 3.4 - 5.0 g/dL Alkaline Phosphatase 55 33 - 136 U/L Total Protein 5.8 (L) 6.4 - 8.2 g/dL AST 13 9 - 39 U/L Bilirubin, Total 0.2 0.0 - 1.2 mg/dL ALT 11 7 - 45 U/L POCT GLUCOSE Result Value Ref Range POCT Glucose 113 (H) 74 - 99 mg/dL POCT GLUCOSE Result Value Ref Range POCT Glucose 135 (H) 74 - 99 mg/dL PTH, Intact Result Value Ref Range Parathyroid Hormone, Intact 8.8 (L) 18.5 - 88.0 pg/mL Lavender Top Result Value Ref Range Extra Tube Hold for add-ons. PST Top Result Value Ref Range Extra Tube Hold for add-ons. Sars-CoV-2 PCR Result Value Ref Range Coronavirus 2019, PCR Not Detected Not Detected ECG 12 lead Result Date: 04/18/2024 Sinus tachycardia Possible Anterior infarct , age undetermined Abnormal ECG When compared with ECG of 18-APR-2024 01:59, (unconfirmed) Vent. rate has increased BY 34 BPM Borderline criteria for Anterior infarct are now Present Nonspecific T wave abnormality now evident in Inferior leads NonspecificT wave abnormality now evident in Lateral leads QT has shortened CT head wo IV contrast Result Date: 04/18/2024 Interpreted By: Selma Moya, STUDY: CT HEAD WO IV CONTRAST; 04/18/2024 11:14 am INDICATION: Signs/Symptoms:MENTAL STATUS CHANGE. COMPARISON: 02/10/2023 ACCESSION NUMBER(S): [id number] ORDERING CLINICIAN: LAZARO HANDY TECHNIQUE: Examination was performed in the axial plane with sagittal and coronal reconstructions. Bone and soft tissue algorithms were performed. FINDINGS: INTRACRANIAL: Status post bifrontal craniotomies. 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 This is unchanged. No mass or mass effect is identified. There is no hemorrhage or subdural fluid collection. There is no acute infarct. EXTRACRANIAL: Visualized paranasal sinuses and mastoids are clear. 1. No acute intracranial pathology. 2. Status post bifrontal craniotomy with bifrontal postsurgicalencephalomalacia. MACRO: None Signed by: Selma Moya 04/18/2024 11:31 AM Dictation workstation: [id number] XR chest 1 view Result Date: 04/18/2024 Interpreted By: Uriel Encarnacion, STUDY: XR CHEST 1 VIEW; 04/18/2024 9:23 am INDICATION: Signs/Symptoms:MENTAL STATUS CHANGE. COMPARISON: 02/10/2023. ACCESSION NUMBER(S): [id number] ORDERING CLINICIAN: LAZARO HANDY FINDINGS: CARDIOMEDIASTINAL SILHOUETTE: Patient is rotated to the left. Dense aortic calcifications are again seen. Cardiac silhouette is stable and not significantly enlarged. LUNGS: Inspiratory volume is low. No focal infiltrate. No definite pleural effusion. No pneumothorax is seen. ABDOMEN: No remarkable upper abdominal findings. BONES: Thoracic dextrocurvature may be partially exaggerated by positioning. Multilevel endplate spurring present in the spine. Degenerative changesof the shoulders are partially visualized. 1. No evidence of acute cardiopulmonary process. MACRO: None. Signed by: Uriel Encarnacion 04/18/2024 10:03 AM Dictation workstation: [id number] All data reviewed by me independently Assessment/Plan Assessment & Plan Altered mental status, unspecified altered mental status type 79-year-old female with history of Cerebral palsy Diabetes mellitus type 2 Osteoporosis Seizures Hypothyroidism Hypertension Hyperlipidemia Presented with Hyperglycemia Metabolic encephalopathy Lactic acidosis Dehydration UTI RASHIDA Hyper natremia Anemia Plan Continue cardiopulmonary monitoring Stop calcitonin, calcium levels improved significantly Continue D5W at 100 cc/h Follow BMP closely Monitor urine output Follow mentation Nephrology following Nutrition FIVE ROLL REFINER BATCH MIXER if necessary PTH low Follow vitamin D level TSH fine Renal function improving Continue Levaquin IV Follow cultures Iron stores of iron, ferritin okay Dehydration with free water deficit Continue D5W and follow sodium levels Lactate okay Supportive care Follow palliative care to discuss goals of care On Synthroid, Lamictal, pravastatin Continue home medicines Monitor fingerstick Hold nephrotoxic medicines including metformin or BRYANT inhibitors Tylenol for pain and antiemetics if required Lovenox for DVT prophylaxis Continue to monitor clinically Awaiting all workup to return and then decide on PEG if failure to thrive present mainly Versus palliative care option Jorge Roberts MD * Liane Maximilian Lopez, HOG STOMACH PREPARER - 04/19/2024 12:30 PM EDT 04/19/24 1227 Discharge Planning Living Arrangements Other (Comment) ([facility]) Support Systems distributed generation project manager/social services coordinator Assistance Needed palliative care Type of Residence senior living Care Facility Name [facility] [place] Who is requesting discharge planning? Provider Home or Post Acute Services In home services (Has [facility] palliative care) Expected Discharge Disposition Other (Return to Retirement with palliave resuming vs. hospice services) Does the patient need discharge transport arranged? Yes What day is the transport expected? 04/21/24 Financial Resource Strain How hard is it for you to pay for the very basics like food, housing, medical care, and heating? Not hard Housing Stability In the last 12 months, was there a time when you were not able to pay the mortgage or rent on time?N In the past 12 months, how many times have you moved where you were living? 0 At any time in the past 12 months, were you homeless or living in a [place] [facility] (including now)? N Transportation Needs In the past 12 months, has lack of transportation kept you from medical appointments or from getting medications? no In the past 12 months, has lack of transportation kept you from meetings, work, or from getting things needed for daily living? No Per medical team, patient is not yet medically ready for discharge; awaits a palliative care consult. Food And Beverage Cashier reviewed patient's chart and went to patient's bedside. Patient is non-verbal at baseline, was mostly somnolent, apart from slightly open eyelids, and did not have any support people present. BALTA phoned patient's [employer]PSI guardian/Alise Gibson ([phone]; emergency [phone]) who confirmed understanding and agreement with patient to return to patient's group homeupon discharge, if [facility] can provide appropriate level of care. BALTA phoned patient's group homeprogram director/Shanda Jones ([phone]) who confirmed that the [facility] will be able to manage all of patient's needs apart from IV antibiotics which would require SNF. Patient receives [facility] 02/03; [facility] has a shadi lift to use if necessary, and can manage new home oxygen. ProgramDirector/Shanda warned that patient's housemate just tested positive for COVID today, as did anothermember of staff. SW passed same information along to medical team. Per [facility] staff, patient receives palliative [facility] services through [facility]. Per Dr. Haas, goals of careconversation is appropriate. SW passed along patient's guardian/Alise's contact information. - 1550: Per Dr. Haas's note, Dr. Haas and patient's guardian discussed the likelihood that patient will be appropriate to receive a PEG tube by the end of the week. SW spoke with patient's [facility] cnc machine programmer/Shanda who confirmed [facility] can manage feeding tubes, but that they request for patients to go to SNF prior to returning to [facility] to give patients time to adjust to tube feedings. SW spoke with patient's guardian/Alise who confirmed that [employer] guardians tend to concur with doctors' recommendations, and that, if PEG tube is recommended, [employer] guardians will agree. SW expressed understanding. Guardian/Alise also agreed for referrals to be sent to SNFs in the [facility]/[facility]. SW/DSC to attach/send same. Plan TBD: If Patient receives PEG tube,patient will require SNF prior to returning to patient's [facility] [place] with palliative care services resuming through [facility]. Care Transitions to follow and assist. KYLAH Lanier documented in this [facility] Work Phone: [phone]) 610-160709-16-2024 Hospital Discharge instructions* Discharge Instr - Activity* Sonja Ortega RN - 04/25/2024 2:32 PM EDT Activity as tolerates. Barrier cream to buttocks and folds. * Discharge Instr - Diet* Sonja Ortega RN - 04/25/2024 2:28 PM EDT Enteral and Parenteral Nutrition Intake: Enteral nutrition formula/solution Criteria: Jevity 1.5 25 ml/hr Additional Plans: Increase formula to 40 ml/hr if tolerating to meet nutritional needs. * Attachments The following attachments cannot be sent through Care Everywhere. * Delirium (confusion) (Lao) documented in this [facility] Work Phone: 1(590) 561-961409-16-2024 Hospital course Narrative* Erin Jacques MD - 04/25/2024 2:17 PM EDT Discharge Diagnosis Altered mental status, unspecified altered mental status type Issues Requiring Follow-Up PCP F/U Discharge Meds Medication List CONTINUE taking these medications * acetaminophen 325 mg tablet; Commonly known as: Tylenol * acetaminophen 650 mg suppository; Commonly known as: Tylenol alendronate 70 mg tablet; Commonly known as: Fosamax; GIVE 1 TABLET BY MOUTH EVERY WEEK *30 MIN BEFORE 1ST FOOD/GAMAL/MED; AVOID LYING DOWN X30 MIN AFTER *SEND WK 1* ARIPiprazole 10 mg tablet; Commonly known as: Abilify; GIVE 1 TABLET BY MOUTH DAILY AT BEDTIME *LEV 1 INTX W/CARBAMAZAPINE OK 07/31/21* bisacodyl 10 mg suppository; Commonly known as: Dulcolax calcium carbonate 600 mg calcium (1,500 mg) tablet; TAKE 1 TABLET BY MOUTH TWICE DAILY (NOON/7PM) *12PM WORKSHOP 2 CARDS: M-F/S-S*SS DENIED NOT UNDER CARE* calcium carbonate-vitamin D3 600 mg-10 mcg (400 unit) tablet; Take 1 tablet by mouth 2 times a day. carBAMazepine 100 mg chewable tablet; Commonly known as: TEGretol Centratex 106 mg iron- 1 mg capsule; Generic drug: mv-mins no.73-iron fum-folic cholecalciferol 50,000 unit capsule; Commonly known as: Vitamin D-3 cyanocobalamin 1,000 mcg tablet; Commonly known as: Vitamin B-12; Take 1 tablet (1,000 mcg) by mouth once daily. Daily-Catarina (with folic acid) 400 mcg tablet; Generic drug: multivitamin; Take 1 tablet by mouth once daily. diazePAM 2 mg tablet; Commonly known as: Valium docusate sodium 100 mg capsule; Commonly known as: Colace; GIVE 1 CAPSULE BY MOUTH ONCE DAILY NEW PCP ergocalciferol 1.25 MG (83611 UT) capsule; Commonly known as: Vitamin D-2 fluconazole 150 mg tablet; Commonly known as: Diflucan; Take 1 tablet (150 mg) by mouth once daily. guaiFENesin 100 mg/5 mL syrup; Commonly known as: Robitussin hydrOXYzine HCL 25 mg tablet; Commonly known as: Atarax lamoTRIgine 25 mg disintegrating tablet; Commonly known as: LaMICtal levothyroxine 50 mcg tablet; Commonly known as: Synthroid, Levoxyl; Take 1 tablet (50 mcg) by mouth once daily. lisinopril 20 mg tablet; Take 1 tablet (20 mg) by mouth once daily. lovastatin 20 mg tablet; Commonly known as: Mevacor; GIVE 1 TABLET BY MOUTH EVERY EVENING DX: CHOLESTEROL NEW PCP melatonin 10 mg tablet; Take 1 tablet (10 mg) by mouth once daily. metFORMIN XR 500 mg 24 hr tablet; Commonly known as: Glucophage-XR; Take 1 tablet (500 mg) by mouth once daily in the evening. Take with meals. mupirocin 2 % ointment; Commonly known as: Bactroban * This list has 2 medication(s) that are the same as other medications prescribed for you. Read the directions carefully, and ask your doctor or other care provider to review them with you. Test Results Pending At Discharge Pending Labs No current pending labs. Hospital Course 79 y.o. female presenting with confusion, altered mental status with baseline cognitive decline [facility] with full-time caregiver. Patient was reported to have decrease oral intake fora day and normally on pur ed diet. Full code per discussion with caregiver at bedside .Overall fatigue ill-appearing. Patient mostly bedbound. Possible urinary frequency and dysuria with generalized weakness. Barely follows any commands does not seem to be communicative even at baseline. She did not look well and appears to be lethargic as well more somnolent than usual. Unable to obtain meaningful history at this time. EKG sinus tachycardia. Lab workup with severe hypercalcemia, hyponatremia, d ehydration, RASHIDA and lactic acidosis. Possible UTI as well. No bowel or bladder incontinence or tongue bite or frothy secretions from mouth. No bleeding apparently. Patient received 2 L normal saline in the ER as well Levaquin IV. Flu and COVID-[address] head also negative for acute process. Chest x-ray not concerning for pneumonia at this time. During the course in the hospital patient was fluid resuscitated. She was given calcitonin for hypercalcemia. She reported intake and eventually spoke with cardiology and they would like to go ahead with PEG tube placement. Patient was placed on PEG tube and also started on tube feeding. Patient tolerated tube feeding well. She was aware of 25 mL/h continuous and at goal during hospitalization. Patient did not have any loose stools. Electrolytes were stable. No medications were continued. Patient's stay was uneventful Patient [facility] satisfactory condition Pertinent Physical Exam At Time of Discharge Physical Exam Physical Exam Constitutional: Comments: Awake, nonresponsive nonverbal HENT: Head: Normocephalic and atraumatic. Nose: Nose normal. Mouth/Throat: Mouth: Mucous membranes are moist. Eyes: Extraocular Movements: Extraocular movements intact. Pupils: Pupils are equal, round, and reactive to light. Cardiovascular: Rate and Rhythm: Normal rate. Pulses: Normal pulses. Pulmonary: Effort: Pulmonary effort is normal. Abdominal: Palpations: Abdomen is soft. Comments: PEG tube placed Musculoskeletal: Cervical back: Normal range of motion. Comments: Bilateral upper and lower extremity contractures seen Skin: General: Skin is dry. Capillary Refill: Capillary refill takes less than 2 seconds. Neurological: General: No focal deficit present. Outpatient Follow-Up Future Appointments Date Time Provider Department Center 05/16/2024 12:45 PM Clara Jones DO [id number] [facility] 05/23/2024 1:20 PM Shanda Huizar DO [id number] [facility] 07/25/2024 10:00 AM Shanda Huizar DO [id number] [facility] Erin Jacques MD documented in this [facility] Work Phone: 1(401) 995-292709-16-2024 Consult note* Livia Forman RDN, VERONIQUE - 04/25/2024 12:47 PM EDT Nutrition Follow Up Note Patient has Malnutrition Diagnosis: Yes Diagnosis Status: Ongoing Malnutrition Diagnosis: Moderate malnutrition related to chronic disease or condition As Evidenced by: poor PO intake >7 days, mild loss of subcutaneous fat and muscle Nutrition Assessment 04/25 Pt enteral feeding NPO gastric tube. Pt non communicative. Pt receiving jevity 1.5 25ml/hr. Total volume is 600 ml. Order is providing 900 kcals, 38.4g of protein and 457 ml of free water. Flushof 200 ml every 6 hours. Total water is 1,257 ml. Nutrition History: Food and Nutrient History: (Pt with poor PO this am at breakfast. MD in talks about PEG tube, awaiting consult if that is the route taken) Energy Intake: Poor < 50 % Allergies Allergen Reactions Amoxicillin Unknown Ampicillin Unknown Penicillin Unknown GI Symptoms: None Oral Problems: None Anthropometrics: Height: 155 cm (5' 1.02) Weight: 50.5 kg (111 lb 5.3 oz) BMI (Calculated): 21.02 Weight History: Weight 04/18/2024 1348 04/19/2024 1000 04/21/2024 0614 04/22/20241999 Weight: 51.5 kg (113 lb 8.6 oz) 51.4 kg (113 lb 5.1 oz) 50.5 kg (111 lb 5.3 oz) 50.5 kg (111 lb 5.3oz) Nutrition Significant Labs: Results from last 7 days Lab Units 04/25/24 0810 04/23/24 0349 04/22/24 0658 GLUCOSE mg/dL 128* 96 128* SODIUM mmol/L 141 142 140 POTASSIUM mmol/L 3.9 3.8 4.1 CHLORIDE mmol/L 112* 114* 114* CO2 mmol/L 21 22 21 BUN mg/dL 11 20 34* CREATININE mg/dL 0.76 1.00 1.43* EGFR mL/min/1.73m*2 79 57* 37* CALCIUM mg/dL 7.7* 7.4* 7.4* Lab Results Component Value Date HGBA1C 5.4 03/21/2024 HGBA1C 6.0 (H) 12/29/2023 HGBA1C 6.0 (A) 03/05/2023 Results from last 7 days Lab Units 04/22/24 0756 04/21/246 04/19/24 1158 04/19/24 0759 04/18/244 04/18/24 1627 POCT GLUCOSE mg/dL 94 154* 135* 113* 130* 106* Lab Results Component Value Date ALBUMIN 3.1 (L) 04/20/2024 No results found for: CRP Nutrition Specific Medications: Scheduled medications: ARIPiprazole, 10 mg, oral, Nightly carBAMazepine, 100 mg, oral, Nightly docusate sodium, 100 mg, oral, Daily enoxaparin, 30 mg, subcutaneous, q24h lamoTRIgine, 50 mg, oral, BID levothyroxine, 50 mcg, oral, Daily mupirocin, , Topical, BID polyethylene glycol, 17 g, oral, Daily pravastatin, 20 mg, oral, Nightly Continuous medications: sodium chloride, 75 mL/hr, Last Rate: 75 mL/hr (04/25/24 0939) PRN medications: PRN medications: acetaminophen OR acetaminophen OR acetaminophen, acetaminophen OR acetaminophen OR acetaminophen, LORazepam, ondansetron ODT OR ondansetron Nursing Data Per flowsheet: Stool Appearance: Unable to assess (04/25/24 0800) Gastrointestinal Gastrointestinal (WDL): Exceptions to WDL Abdomen Inspection: Rounded Abdominal Tenderness: No guarding Bowel Sounds: All quadrants Bowel Sounds (All Quadrants): Active Bowel Incontinence: Yes Stool Appearance: Unable to assess Stool Color: Unable to assess Feeding assistance level: Completely dependent Intake/Output Summary (Last 24 hours) at 04/25/2024 1320 Last data filed at 04/25/2024 0939 Gross per 24 hour Intake 8014.9 ml Output 2550 ml Net 5464.9 ml 0-10 (Numeric) Pain Score: 0 - No pain Critical-Care Pain Observation Score: [0] Quiles-Garcia FACES Pain Rating: No hurt Dietary Orders (From admission, onward) Start Ordered 04/22/24 1520 Enteral feeding with NPO GT (gastric tube); 25; 200; Water; Every 6 hours Diet effective now Question Answer Comment Tube feeding formula: Jevity 1.5 Feeding route: GT (gastric tube) Tube feeding continuous rate (mL/hr): 25 Tube feeding flush (mL): 200 Flush type: Water Flush frequency: Every 6 hours 04/22/24 1520 04/21/24 1423 Oral nutritional supplements Until discontinued Question Answer Comment Deliver with Lunch Deliver with Dinner Select supplement: Magic Cup 04/21/24 1422 Estimated Needs: Total Energy Estimated Needs (kCal): 1550 kCal Method for Estimating Needs: 30-35kcals/kg IBW (1746-1195) Total Protein Estimated Needs (g): 55 g Method for Estimating Needs: 1-1.2g/kg IBW (48-58) Total Fluid Estimated Needs (mL): 1550 mL Method for Estimating Needs: 1 ml/kcal Nutrition Diagnosis Malnutrition Diagnosis Patient has Malnutrition Diagnosis: Yes Diagnosis Status: Ongoing Malnutrition Diagnosis: Moderate malnutrition related to chronic disease or condition As Evidenced by: poor PO intake >7 days, mild loss of subcutaneous fat and muscle Nutrition Interventions/Recommendations Nutrition Prescription: (Individualized nutrition prescription of 1550 kcals and 55g of protein to be provided with diet order. (Pureed, moderately thick liquids)) Nutrition Interventions: Interventions: Enteral intake Meals and Snacks: (NPO) Enteral Intake: (jevity 1.5) Medical Food Supplement: (NPO) Goal: (NPO) Recommendations: If pt remains only tf increase to 1000 ml daily. (40 ml/hr) if pt can tolerate. Will meet her nutritional needs. Would provide 1500 kcals, 63.8g of protein, and 760 ml free water. Flush can remain 200 every 6 hours. Nutrition Monitoring and Evaluation Food/Nutrient Related History Monitoring Monitoring and Evaluation Plan: Enteral and parenteral nutrition intake Energy Intake: Estimated energy intake Criteria: NPO Enteral and Parenteral Nutrition Intake: Enteral nutrition formula/solution Criteria: Jevity 1.5 25 ml/hr Additional Plans: Increase formula to 40 ml/hr if tolerating to meet nutritional needs. Body Composition/Growth/Weight History Monitoring and Evaluation Plan: Weight Weight: Weight change Criteria: Continue to monitor wt status and wt changes. Time Spent (min): 45 minutes [facility]09-16-2024 Consult note* Livia Forman RDN, LD - 04/25/2024 12:47 PM EDT Nutrition Follow Up Note Patient has Malnutrition Diagnosis: Yes Diagnosis Status: Ongoing Malnutrition Diagnosis: Moderate malnutrition related to chronic disease or condition As Evidenced by: poor PO intake >7 days, mild loss of subcutaneous fat and muscle Nutrition Assessment 04/25 Pt enteral feeding NPO gastric tube. Pt non communicative. Pt receiving jevity 1.5 25ml/hr. Total volume is 600 ml. Order is providing 900 kcals, 38.4g of protein and 457 ml of free water. Flushof 200 ml every 6 hours. Total water is 1,257 ml. Nutrition History: Food and Nutrient History: (Pt with poor PO this am at breakfast. MD in talks about PEG tube, awaiting consult if that is the route taken) Energy Intake: Poor < 50 % Allergies Allergen Reactions Amoxicillin Unknown Ampicillin Unknown Penicillin Unknown GI Symptoms: None Oral Problems: None Anthropometrics: Height: 155 cm (5' 1.02) Weight: 50.5 kg (111 lb 5.3 oz) BMI (Calculated): 21.02 Weight History: Weight 04/18/2024 1348 04/19/2024 1000 04/21/2024 0614 04/22/20241999 Weight: 51.5 kg (113 lb 8.6 oz) 51.4 kg (113 lb 5.1 oz) 50.5 kg (111 lb 5.3 oz) 50.5 kg (111 lb 5.3oz) Nutrition Significant Labs: Results from last 7 days Lab Units 04/25/24 0810 04/23/24 0349 04/22/24 0658 GLUCOSE mg/dL 128* 96 128* SODIUM mmol/L 141 142 140 POTASSIUM mmol/L 3.9 3.8 4.1 CHLORIDE mmol/L 112* 114* 114* CO2 mmol/L 21 22 21 BUN mg/dL 11 20 34* CREATININE mg/dL 0.76 1.00 1.43* EGFR mL/min/1.73m*2 79 57* 37* CALCIUM mg/dL 7.7* 7.4* 7.4* Lab Results Component Value Date HGBA1C 5.4 03/21/2024 HGBA1C 6.0 (H) 12/29/2023 HGBA1C 6.0 (A) 03/05/2023 Results from last 7 days Lab Units 04/22/24 0756 04/21/24195504/19/24 1158 04/19/24 0759 04/18/24204304/18/24 1627 POCT GLUCOSE mg/dL 94 154* 135* 113* 130* 106* Lab Results Component Value Date ALBUMIN 3.1 (L) 04/20/2024 No results found for: CRP Nutrition Specific Medications: Scheduled medications: ARIPiprazole, 10 mg, oral, Nightly carBAMazepine, 100 mg, oral, Nightly docusate sodium, 100 mg, oral, Daily enoxaparin, 30 mg, subcutaneous, q24h lamoTRIgine, 50 mg, oral, BID levothyroxine, 50 mcg, oral, Daily mupirocin, , Topical, BID polyethylene glycol, 17 g, oral, Daily pravastatin, 20 mg, oral, Nightly Continuous medications: sodium chloride, 75 mL/hr, Last Rate: 75 mL/hr (04/25/24 0939) PRN medications: PRN medications: acetaminophen OR acetaminophen OR acetaminophen, acetaminophen OR acetaminophen OR acetaminophen, LORazepam, ondansetron ODT OR ondansetron Nursing Data Per flowsheet: Stool Appearance: Unable to assess (04/25/24 0800) Gastrointestinal Gastrointestinal (WDL): Exceptions to WDL Abdomen Inspection: Rounded Abdominal Tenderness: No guarding Bowel Sounds: All quadrants Bowel Sounds (All Quadrants): Active Bowel Incontinence: Yes Stool Appearance: Unable to assess Stool Color: Unable to assess Feeding assistance level: Completely dependent Intake/Output Summary (Last 24 hours) at 04/25/2024 1320 Last data filed at 04/25/2024 0939 Gross per 24 hour Intake 8014.9 ml Output 2550 ml Net 5464.9 ml 0-10 (Numeric) Pain Score: 0 - No pain Critical-Care Pain Observation Score: [0] Quiles-Garcia FACES Pain Rating: No hurt Dietary Orders (From admission, onward) Start Ordered 04/22/24 1520 Enteral feeding with NPO GT (gastric tube); 25; 200; Water; Every 6 hours Diet effective now Question Answer Comment Tube feeding formula: Jevity 1.5 Feeding route: GT (gastric tube) Tube feeding continuous rate (mL/hr): 25 Tube feeding flush (mL): 200 Flush type: Water Flush frequency: Every 6 hours 04/22/24 1520 04/21/24 1423 Oral nutritional supplements Until discontinued Question Answer Comment Deliver with Lunch Deliver with Dinner Select supplement: Magic Cup 04/21/24 1422 Estimated Needs: Total Energy Estimated Needs (kCal): 1550 kCal Method for Estimating Needs: 30-35kcals/kg IBW (8076-9619) Total Protein Estimated Needs (g): 55 g Method for Estimating Needs: 1-1.2g/kg IBW (48-58) Total Fluid Estimated Needs (mL): 1550 mL Method for Estimating Needs: 1 ml/kcal Nutrition Diagnosis Malnutrition Diagnosis Patient has Malnutrition Diagnosis: Yes Diagnosis Status: Ongoing Malnutrition Diagnosis: Moderate malnutrition related to chronic disease or condition As Evidenced by: poor PO intake >7 days, mild loss of subcutaneous fat and muscle Nutrition Interventions/Recommendations Nutrition Prescription: (Individualized nutrition prescription of 1550 kcals and 55g of protein to be provided with diet order. (Pureed, moderately thick liquids)) Nutrition Interventions: Interventions: Enteral intake Meals and Snacks: (NPO) Enteral Intake: (jevity 1.5) Medical Food Supplement: (NPO) Goal: (NPO) Recommendations: If pt remains only tf increase to 1000 ml daily. (40 ml/hr) if pt can tolerate. Will meet her nutritional needs. Would provide 1500 kcals, 63.8g of protein, and 760 ml free water. Flush can remain 200 every 6 hours. Nutrition Monitoring and Evaluation Food/Nutrient Related History Monitoring Monitoring and Evaluation Plan: Enteral and parenteral nutrition intake Energy Intake: Estimated energy intake Criteria: NPO Enteral and Parenteral Nutrition Intake: Enteral nutrition formula/solution Criteria: Jevity 1.5 25 ml/hr Additional Plans: Increase formula to 40 ml/hr if tolerating to meet nutritional needs. Body Composition/Growth/Weight History Monitoring and Evaluation Plan: Weight Weight: Weight change Criteria: Continue to monitor wt status and wt changes. Time Spent (min): 45 minutes * Livia Forman RDN, LD - 04/20/2024 11:33 AM EDTAssociated Order(s): IP CONSULT TO NUTRITION SERVICES Nutrition Initial Assessment: Nutrition Assessment Reason for Assessment: Admission nursing screening Patient is a 79 y.o. female presenting with altered mental status. Denies any N/V/D/C at this time.Pt with decreased PO intake and adult failure to thrive. Pt on pureed diet with moderately thick liquids. Being spoon fed only. Rec; magic cup 2x daily with L/D providing an additional 290 kcals and 9g of protein each. Nutrition History: Energy Intake: Poor < 50 % Food and Nutrient History: (Pt with poor PO this am at breakfast. MD in talks about PEG tube, awaiting consult if that is the route taken) Food Allergies/Intolerances: None GI Symptoms: None Oral Problems: None Anthropometrics: Height: 155 cm (5' 1.02) Weight: 50.5 kg (111 lb 5.3 oz) BMI (Calculated): 21.02 Weight Change %: Weight History / % Weight Change: (wt gain of 3.6% BW since 12/09/23 (4 months) not significant.) Significant Weight Loss: No Nutrition Focused Physical Exam Findings: Subcutaneous Fat Loss: Orbital Fat Pads: Mild-Moderate (slight dark circles and slight hollowing) Buccal Fat Pads: Mild-Moderate (flat cheeks, minimal bounce) Muscle Wasting: Temporalis: Mild-Moderate (slight depression) Pectoralis (Clavicular Region): Mild-Moderate (some protrusion of clavicle) Edema: Edema: none Physical Findings: Hair: Negative Eyes: Negative Mouth: Negative Skin: Negative (Skin noting wound to sacrum.) Nutrition Significant Labs: CBC Trend: Results from last 7 days Lab Units 04/21/24 0435 04/20/24 0403 04/19/24 0356 04/18/24 0951 WBC AUTO x10*3/uL 9.2 11.3 11.2 12.7* RBC AUTO x10*6/uL 3.16* 3.02* 3.11* 3.65* HEMOGLOBIN g/dL 10.2* 9.4* 9.8* 11.7* HEMATOCRIT % 31.8* 31.1* 33.3* 39.8 MCV fL 101* 103* 107* 109* PLATELETS AUTO x10*3/uL 219 216 228 268 , BMP Trend: Results from last 7 days Lab Units 04/21/24 0435 04/20/24 0403 04/19/24 0356 04/18/24 0951 GLUCOSE mg/dL 71* 138* 120* 126* CALCIUM mg/dL 8.6 9.9 12.5* 17.3* SODIUM mmol/L 144 142 155* 158* POTASSIUM mmol/L 3.4* 3.1* 3.5 4.9 CO2 mmol/L 27 28 35* 43* CHLORIDE mmol/L 112* 107 116* 111* BUN mg/dL 34* 58* 97* 145* CREATININE mg/dL 1.16* 1.38* 1.92* 2.71* , A1C: Lab Results Component Value Date HGBA1C 5.4 03/21/2024 Nutrition Specific Medications: ARIPiprazole, 10 mg, oral, Nightly carBAMazepine, 100 mg, oral, Nightly docusate sodium, 100 mg, oral, Daily enoxaparin, 30 mg, subcutaneous, q24h lamoTRIgine, 50 mg, oral, BID levothyroxine, 50 mcg, oral, Daily mupirocin, , Topical, BID polyethylene glycol, 17 g, oral, Daily potassium chloride CR, 40 mEq, oral, Once pravastatin, 20 mg, oral, Nightly I/O: ; Dietary Orders (From admission, onward) Start Ordered 04/21/24 1108 Adult diet Regular; Pureed 4; Moderately thick 3; 1:1 Feeding, Spoon feed only Diet effective now Question Answer Comment Diet type Regular Texture Pureed 4 Fluid consistency Moderately thick 3 Select tray type: 1:1 Feeding Select tray type: Spoon feed only 04/21/24 1107 Estimated Needs: Total Energy Estimated Needs (kCal): 1550 kCal Method for Estimating Needs: 30-35kcals/kg IBW (4945-0789) Total Protein Estimated Needs (g): 55 g Method for Estimating Needs: 1-1.2g/kg IBW (48-58) Total Fluid Estimated Needs (mL): 1550 mL Method for Estimating Needs: 1 ml/kcal Nutrition Diagnosis Malnutrition Diagnosis Patient has Malnutrition Diagnosis: Yes Diagnosis Status: New Malnutrition Diagnosis: Moderate malnutrition related to chronic disease or condition As Evidenced by: poor PO intake >7 days, mild loss of subcutaneous fat and muscle Nutrition Interventions/Recommendations Nutrition Prescription: Individualized Nutrition Prescription Provided for : (Individualized nutrition prescription of 1550kcals and 55g of protein to be provided with diet order. (Pureed, moderately thick liquids)) Nutrition Interventions: Interventions: Meals and snacks, Medical food supplement Meals and Snacks: (reg diet, pureed textures and moderately thick liquids) Medical Food Supplement: Commercial food Goal: magic cup 2x daily (290 kcals and 9g protein each) Nutrition Monitoring and Evaluation Food/Nutrient Related History Monitoring Monitoring and Evaluation Plan: Energy intake Energy Intake: Estimated energy intake Criteria: Continue to monitor PO intake, goal of >50% PO of meals Additional Plans: Magic cup 2x daily providing an additional 290 kcals and 9g of protein each. Body Composition/Growth/Weight History Monitoring and Evaluation Plan: Weight Weight: Weight change Criteria: Continue to monitor wt status and wt changes. Time Spent (min): 60 minutes * Nissa Haas DO - 04/19/2024 12:21 PM EDTAssociated Order(s): IP CONSULT TO NEPHROLOGY Reason For Consult Hypercalcemia and acute renal failure History Of Present Illness Mik Shelton is a 79 y.o. female presenting with altered mental status decreased oral intake. She presented to the emergency room due to a change in her mental status from her baseline and alsoat the nursing facility where she resides she was having decreased oral intake not eating really atall and losing weight. When she arrived she was found to be in acute renal failure and also hypercalcemic very elevated. She was started on IV fluids also given calcitonin and has responded so far. This a.m. when I met her she is resting pretty comfortably in bed she does not answer any questionsfor me she is awake and alert but is not answering questions or talking. Past Medical History She has a past medical history of Cerebral palsy (Multi), Diabetes mellitus (Multi), Hypothyroidism, Psychiatric disorder, and Seizures (Multi). Surgical History She has no past surgical history on file. Social History She reports that she has never smoked. She has never used smokeless tobacco. She reports that she does not currently use alcohol. She reports that she does not use drugs. Family History Family History Family history unknown: Yes Allergies Amoxicillin, Ampicillin, and Penicillin Review of Systems A full 10 point review of systems at this time is not able to be obtained she does not answer any questions for me Physical Exam Physical Exam HENT: Head: Normocephalic and atraumatic. Right Ear: External ear normal. Left Ear: External ear normal. Nose: Nose normal. Mouth/Throat: Mouth: Mucous membranes are moist. Pharynx: Oropharynx is clear. Eyes: Extraocular Movements: Extraocular movements intact. Conjunctiva/sclera: Conjunctivae normal. Pupils: Pupils are equal, round, and reactive to light. Cardiovascular: Rate and Rhythm: Normal rate and regular rhythm. Pulmonary: Effort: Pulmonary effort is normal. Breath sounds: Normal breath sounds. Abdominal: General: Abdomen is flat. Palpations: Abdomen is soft. Skin: General: Skin is warm and dry. Neurological: General: No focal deficit present. Mental Status: She is alert. Comments: NonVerbal at this time. I&O 24HR Intake/Output Summary (Last 24 hours) at 04/19/2024 1221 Last data filed at 04/19/2024 0604 Gross per 24 hour Intake 4173.66 ml Output 750 ml Net 3423.66 ml Vitals 24HR Heart Rate: [78-105] Temp: [35.6 C (96.1 F)-36.2 C (97.2 F)] Resp: [15-27] BP: (115-165)/(60-141) Height: [155 cm (5' 1.02)] Weight: [51.4 kg (113 lb 5.1 oz)-51.5 kg (113 lb 8.6 oz)] SpO2: [92 %-100 %] Scheduled medications calcitonin, 100 Units, intramuscular, Daily enoxaparin, 30 mg, subcutaneous, q24h lamoTRIgine, 50 mg, oral, BID [START ON 04/20/2024] levoFLOXacin, 250 mg, intravenous, q48h levothyroxine, 50 mcg, oral, Daily mupirocin, , Topical, BID polyethylene glycol, 17 g, oral, Daily potassium chloride CR, 20 mEq, oral, Once pravastatin, 20 mg, oral, Nightly Continuous medications dextrose 5%, 100 mL/hr, Last Rate: 100 mL/hr (09/10/24 1027) PRN medications PRN medications: acetaminophen OR acetaminophen OR acetaminophen, acetaminophen OR acetaminophen OR acetaminophen, LORazepam, ondansetron ODT OR ondansetron, oxygen Relevant Results Results reviewed Assessment/Plan Acute renal failure with azotemia Hypernatremia Hypercalcemia Cerebral palsy Recent weight loss Hypothyroidism Plan: At this time it appears that likely her entire presentation was due to severe dehydration. Her calcium is improved dramatically. Her renal function is also improving. She does have a free water deficit and currently is getting D5 water She is not taking in oral nutrition She is awake and alert today nonverbal with me currently I will call and discuss with her POA It appears to me that this is likely totally from a nonintake issue we are still waiting for PTH and vitamin D but I expect these to be nondiagnostic and likely pointing towards the same issue With this in mind I will discuss with POA that she likely will need a feeding tube if they want to continue going forward with full care at this time with her dramatic improvement I will go ahead anddiscontinue calcitonin Continue fluids and watch electrolytes and labs 1300: I called and updated her POA Alise. I discussed with her her overall course so far and gave her an explanation of the above At this time if she continues to do well with supportive measures and there are other test come back all pointing towards inability to keep up with her metabolic demands then they would want to proceed with a feeding tube. If all of this comes back negative then my recommendation to go forward would be a feeding tube andso we will discuss with them again on Thursday or and if workup for secondary reasons come back negative then likely will proceed with a feeding tube this Thursday Assessment & Plan Altered mental status, unspecified altered mental status type Nissa Haas DO [facility] Phone: [phone]) 851-681609-16-2024 Plan of care note* Care Plan - Susanna Valdes RN - 04/25/2024 9:57 AM EDT The patient's goals for the shift include The clinical goals for the shift include tolerate tube feed throughout shift. Over the shift, the patient did not make progress toward the following goals. Barriers to progression include . Recommendations to address these barriers include . [facility]09-16-2024 Miscellaneous Notes* Care Plan - Susanna Valdes RN - 04/25/2024 9:57 AM EDT The patient's goals for the shift include The clinical goals for the shift include tolerate tube feed throughout shift. Over the shift, the patient did not make progress toward the following goals. Barriers to progression include . Recommendations to address these barriers include . * Care Plan - Xiomy Blackmon RN - 04/25/2024 4:21 AM EDT Problem: Pain - Adult Goal: Verbalizes/displays adequate comfort level or baseline comfort level Outcome: Progressing Problem: Discharge Planning Goal: Discharge to home or other facility with appropriate resources Outcome: Progressing Problem: Chronic Conditions and Co-morbidities Goal: Patient's chronic conditions and co-morbidity symptoms are monitored and maintained or improved Outcome: Progressing Problem: Skin Goal: Participates in plan/prevention/treatment measures Outcome: Progressing Goal: Prevent/manage excess moisture Outcome: Progressing Goal: Promote/optimize nutrition Outcome: Progressing Goal: Promote skin healing Outcome: Progressing Problem: Diabetes Goal: Increase stability of blood glucose readings by end of shift Outcome: Progressing Goal: Maintain glucose levels >70mg/dl to <250mg/dl throughout shift Outcome: Progressing Problem: Nutrition Goal: Oral intake greater 75% Outcome: Progressing Goal: Consume prescribed supplement Outcome: Progressing Goal: Adequate PO fluid intake Outcome: Progressing Goal: Nutrition support goals are met within 48 hrs Outcome: Progressing Goal: Lab values WNL Outcome: Progressing Goal: Electrolytes WNL Outcome: Progressing Goal: Promote healing Outcome: Progressing Goal: Maintain stable weight Outcome: Progressing The patient's goals for the shift include The clinical goals for the shift include tolerate tube feed throughout shift. Pt tolerate tube feed. Discharge plans pending. * Care Plan - Livia Irene RN - 04/22/2024 10:58 PM EDT The patient's goals for the shift include The clinical goals for the shift include tolerate tube feed Problem: Pain - Adult Goal: Verbalizes/displays adequate comfort level or baseline comfort level 04/22/20242256 by Livia Irene RN Outcome: Progressing 04/22/20242249 by Livia Irene RN Outcome: Progressing 04/22/20242248 by Livia Irene RN Outcome: Progressing Flowsheets (Taken 04/22/20242248) Verbalizes/displays adequate comfort level or baseline comfort level: Assess pain using appropriatepain scale Problem: Discharge Planning Goal: Discharge to home or other facility with appropriate resources 04/22/20242256 by Livia Irene RN Outcome: Progressing 04/22/20242249 by Livia Irene RN Outcome: Progressing 04/22/20242248 by Livia Irene RN Outcome: Progressing Problem: Chronic Conditions and Co-morbidities Goal: Patient's chronic conditions and co-morbidity symptoms are monitored and maintained or improved 04/22/20242256 by Livia Irene RN Outcome: Progressing 04/22/20242249 by Livia Irene RN Outcome: Progressing 04/22/20242248 by Livia Irene RN Outcome: Progressing Flowsheets (Taken 04/22/20242248) Care Plan - Patient's Chronic Conditions and Co-Morbidity Symptoms are Monitored and Maintained or Improved: Monitor and assess patient's chronic conditions and comorbid symptoms for stability, deterioration, or improvement Problem: Skin Goal: Participates in plan/prevention/treatment measures 04/22/20242256 by Livia Irene RN Outcome: Progressing 04/22/20242255 by Livia Irene RN Outcome: Progressing 04/22/20242249 by Livia Irene RN Outcome: Progressing 04/22/20242248 by Livia Irene RN Outcome: Progressing Goal: Prevent/manage excess moisture 04/22/20242256 by Livia Irene RN Outcome: Progressing 04/22/2024 2256 by Livia Irene RN Outcome: Progressing Flowsheets (Taken 04/21/2024 1142 by Susanna Schultz RN) Prevent/manage excess moisture: Moisturize dry skin Cleanse incontinence/protect with barrier cream 04/22/2024 2250 by Livia Irene RN Outcome: Progressing 04/22/2024 2249 by Livia Irene RN Outcome: Progressing Goal: Promote/optimize nutrition 04/22/2024 2257 by Livia Irene RN Outcome: Progressing 04/22/2024 2256 by Livia Irene RN Outcome: Progressing 04/22/2024 2250 by Livia Irene RN Outcome: Progressing 04/22/2024 2249 by Livia Irene RN Outcome: Progressing Goal: Promote skin healing 04/22/2024 2257 by Livia Irene RN Outcome: Progressing 04/22/2024 2256 by Livia Irene RN Outcome: Progressing 04/22/2024 2250 by Livia Irene RN Outcome: Progressing 04/22/2024 2249 by Livia Irene RN Outcome: Progressing Problem: Diabetes Goal: Increase stability of blood glucose readings by end of shift 04/22/2024 225 by Livia Irene RN Outcome: Progressing 04/22/2024 2250 by Livia Irene RN Outcome: Progressing 04/22/2024 2249 by Livia Irene RN Outcome: Progressing Goal: Maintain glucose levels >70mg/dl to <250mg/dl throughout shift 04/22/2024 2257 by Livia Irene RN Outcome: Progressing 04/22/2024 2250 by Livia Irene RN Outcome: Progressing 04/22/2024 2249 by Livia Irene RN Outcome: Progressing Problem: Nutrition Goal: Oral intake greater 75% 04/22/2024 2257 by Livia Irene RN Outcome: Progressing 04/22/2024 2250 by Livia Irene RN Outcome: Progressing 04/22/2024 2249 by Livia Irene RN Outcome: Progressing Goal: Consume prescribed supplement 04/22/2024 2257 by Livia Irene RN Outcome: Progressing 04/22/2024 2250 by Livia Irene RN Outcome: Progressing 04/22/2024 2249 by Livia Irene RN Outcome: Progressing Goal: Adequate PO fluid intake 04/22/2024 2257 by Livia Irene, PAMELLA Outcome: Progressing 04/22/2024 2250 by Livia Irene RN Outcome: Progressing 04/22/2024 2249 by Livia Irene RN Outcome: Progressing Goal: Nutrition support goals are met within 48 hrs 04/22/2024 225 by Livia Irene RN Outcome: Progressing 04/22/2024 2250 by Livia Irene RN Outcome: Progressing 04/22/2024 2249 by Livia Irene RN Outcome: Progressing Goal: Lab values WNL 04/22/2024 2257 by Livia Irene RN Outcome: Progressing 04/22/2024 2250 by Livia Irene RN Outcome: Progressing 04/22/2024 2249 by Livia Irene RN Outcome: Progressing Goal: Electrolytes WNL 04/22/2024 2257 by Livia Irene RN Outcome: Progressing 04/22/2024 2250 by Livia Irene RN Outcome: Progressing 04/22/2024 2249 by Livia Irene RN Outcome: Progressing Goal: Promote healing 04/22/2024 2257 by Livia Irene RN Outcome: Progressing 04/22/2024 2250 by Livia Irene RN Outcome: Progressing 04/22/2024 2249 by Livia Irene RN Outcome: Progressing Goal: Maintain stable weight 04/22/2024 2257 by Livia Irene RN Outcome: Progressing 04/22/2024 2250 by Livia Irene RN Outcome: Progressing 04/22/2024 2249 by Livia Irene RN Outcome: Progressing * Care Plan - Livia Irene RN - 04/22/2024 10:50 PM EDT The patient's goals for the shift include The clinical goals for the shift include tolerate peg tube placement Problem: Pain - Adult Goal: Verbalizes/displays adequate comfort level or baseline comfort level Outcome: Progressing Flowsheets (Taken 04/22/20242248) Verbalizes/displays adequate comfort level or baseline comfort level: Assess pain using appropriatepain scale Problem: Discharge Planning Goal: Discharge to home or other facility with appropriate resources Outcome: Progressing Problem: Chronic Conditions and Co-morbidities Goal: Patient's chronic conditions and co-morbidity symptoms are monitored and maintained or improved Outcome: Progressing Flowsheets (Taken 04/22/20242248) Care Plan - Patient's Chronic Conditions and Co-Morbidity Symptoms are Monitored and Maintained or Improved: Monitor and assess patient's chronic conditions and comorbid symptoms for stability, deterioration, or improvement Problem: Skin Goal: Participates in plan/prevention/treatment measures Outcome: Progressing Goal: Prevent/manage excess moisture Outcome: Progressing Goal: Promote/optimize nutrition Outcome: Progressing Goal: Promote skin healing Outcome: Progressing Problem: Diabetes Goal: Increase stability of blood glucose readings by end of shift Outcome: Progressing Goal: Maintain glucose levels >70mg/dl to <250mg/dl throughout shift Outcome: Progressing Problem: Nutrition Goal: Oral intake greater 75% Outcome: Progressing Goal: Consume prescribed supplement Outcome: Progressing Goal: Adequate PO fluid intake Outcome: Progressing Goal: Nutrition support goals are met within 48 hrs Outcome: Progressing Goal: Lab values WNL Outcome: Progressing Goal: Electrolytes WNL Outcome: Progressing Goal: Promote healing Outcome: Progressing Goal: Maintain stable weight Outcome: Progressing * Care Plan - Lakesha Peters RN - 04/21/2024 5:32 AM EDT Problem: Skin Goal: Participates in plan/prevention/treatment measures Flowsheets (Taken 04/21/2024 05) Participates in plan/prevention/treatment measures: Elevate heels Goal: Prevent/manage excess moisture Flowsheets (Taken 04/21/2024 0531) Prevent/manage excess moisture: Cleanse incontinence/protect with barrier cream Goal: Promote/optimize nutrition Flowsheets (Taken 04/21/2024 0531) Promote/optimize nutrition: Assist with feeding Goal: Promote skin healing Flowsheets (Taken 04/21/2024530) Promote skin healing: Turn/reposition every 2 hours/use positioning/transfer devices Problem: Diabetes Goal: Vital signs within normal range for age by end of shift Outcome: Met The patient's goals for the shift include The clinical goals for the shift include increase oral intake Goal met * Care Plan - Lakesha Peters RN - 04/20/2024 5:57 AM EDT Problem: Skin Goal: Participates in plan/prevention/treatment measures Flowsheets (Taken 04/20/2024555) Participates in plan/prevention/treatment measures: Elevate heels Goal: Prevent/manage excess moisture Flowsheets (Taken 04/20/2024555) Prevent/manage excess moisture: Use wicking fabric (obtain order) Goal: Promote/optimize nutrition Flowsheets (Taken 04/20/2024555) Promote/optimize nutrition: Monitor/record intake including meals Problem: Nutrition Goal: Oral intake greater 75% Outcome: Progressing The patient's goals for the shift include The clinical goals for the shift include maintain IV access. tolerate rehydration Goal met * Care Plan - Lakesha Peters RN - 04/19/2024 5:10 AM EDT Problem: Safety - Adult Goal: Free from fall injury Outcome: Met Problem: Skin Goal: Prevent/minimize sheer/friction injuries Outcome: Met Problem: Nutrition Goal: BG 80-180 mg/dL Outcome: Met The patient's goals for the shift include The clinical goals for the shift include * Care Plan - Kristi Sandra RN - 04/18/2024 7:00 PM EDT The patient's goals for the shift include The clinical goals for the shift include [facility] [phone]) 533-720409-16-2024 Plan of care note* Care Plan - Xiomy Blackmon RN - 04/25/2024 4:21 AM EDT Problem: Pain - Adult Goal: Verbalizes/displays adequate comfort level or baseline comfort level Outcome: Progressing Problem: Discharge Planning Goal: Discharge to home or other facility with appropriate resources Outcome: Progressing Problem: Chronic Conditions and Co-morbidities Goal: Patient's chronic conditions and co-morbidity symptoms are monitored and maintained or improved Outcome: Progressing Problem: Skin Goal: Participates in plan/prevention/treatment measures Outcome: Progressing Goal: Prevent/manage excess moisture Outcome: Progressing Goal: Promote/optimize nutrition Outcome: Progressing Goal: Promote skin healing Outcome: Progressing Problem: Diabetes Goal: Increase stability of blood glucose readings by end of shift Outcome: Progressing Goal: Maintain glucose levels >70mg/dl to <250mg/dl throughout shift Outcome: Progressing Problem: Nutrition Goal: Oral intake greater 75% Outcome: Progressing Goal: Consume prescribed supplement Outcome: Progressing Goal: Adequate PO fluid intake Outcome: Progressing Goal: Nutrition support goals are met within 48 hrs Outcome: Progressing Goal: Lab values WNL Outcome: Progressing Goal: Electrolytes WNL Outcome: Progressing Goal: Promote healing Outcome: Progressing Goal: Maintain stable weight Outcome: Progressing The patient's goals for the shift include The clinical goals for the shift include tolerate tube feed throughout shift. Pt tolerate tube feed. Discharge plans pending. [facility] Plan of care note* Care Plan - Livia Irene RN - 04/22/2024 10:58 PM EDT The patient's goals for the shift include The clinical goals for the shift include tolerate tube feed Problem: Pain - Adult Goal: Verbalizes/displays adequate comfort level or baseline comfort level 04/22/20242256 by Livia Irene RN Outcome: Progressing 04/22/2024 2250 by Livia Irene RN Outcome: Progressing 04/22/2024 2249 by Livia Irene RN Outcome: Progressing Flowsheets (Taken 04/22/2024 2249) Verbalizes/displays adequate comfort level or baseline comfort level: Assess pain using appropriatepain scale Problem: Discharge Planning Goal: Discharge to home or other facility with appropriate resources 04/22/20242256 by Livia Irene RN Outcome: Progressing 04/22/2024 2250 by Livia Irene RN Outcome: Progressing 04/22/2024 224 by Livia Irene RN Outcome: Progressing Problem: Chronic Conditions and Co-morbidities Goal: Patient's chronic conditions and co-morbidity symptoms are monitored and maintained or improved 04/22/20242256 by Livia Irene RN Outcome: Progressing 04/22/20242249 by Livia Irene RN Outcome: Progressing 04/22/20242248 by Livia Irene RN Outcome: Progressing Flowsheets (Taken 04/22/2024 2249) Care Plan - Patient's Chronic Conditions and Co-Morbidity Symptoms are Monitored and Maintained or Improved: Monitor and assess patient's chronic conditions and comorbid symptoms for stability, deterioration, or improvement Problem: Skin Goal: Participates in plan/prevention/treatment measures 04/22/20242256 by Livia Irene RN Outcome: Progressing 04/22/20242255 by Livia Irene RN Outcome: Progressing 04/22/20242249 by Livia Irene RN Outcome: Progressing 04/22/20242248 by Livia Irene RN Outcome: Progressing Goal: Prevent/manage excess moisture 04/22/20242256 by Livia Irene RN Outcome: Progressing 04/22/2024 225 by Livia Irene RN Outcome: Progressing Flowsheets (Taken 04/21/2024 1142 by Susanna Schultz RN) Prevent/manage excess moisture: Moisturize dry skin Cleanse incontinence/protect with barrier cream 04/22/20242249 by Livia Irene RN Outcome: Progressing 04/22/20242248 by Livia Irene RN Outcome: Progressing Goal: Promote/optimize nutrition 04/22/20242256 by Livia Irene RN Outcome: Progressing 04/22/2024 2256 by Livia Irene RN Outcome: Progressing 04/22/2024 2250 by Livia Irene RN Outcome: Progressing 04/22/2024 2249 by Livia Irene RN Outcome: Progressing Goal: Promote skin healing 04/22/2024 225 by Livia Irene RN Outcome: Progressing 04/22/2024 2256 by Livia Irene RN Outcome: Progressing 04/22/2024 2250 by Livia Irene RN Outcome: Progressing 04/22/2024 2249 by Livia Irene RN Outcome: Progressing Problem: Diabetes Goal: Increase stability of blood glucose readings by end of shift 04/22/2024 225 by Livia Irene RN Outcome: Progressing 04/22/2024 2250 by Livia Irene RN Outcome: Progressing 04/22/2024 2249 by Livia Irene RN Outcome: Progressing Goal: Maintain glucose levels >70mg/dl to <250mg/dl throughout shift 04/22/2024 225 by Livia Irene RN Outcome: Progressing 04/22/2024 2250 by Livia Irene RN Outcome: Progressing 04/22/2024 224 by Livia Irene RN Outcome: Progressing Problem: Nutrition Goal: Oral intake greater 75% 04/22/20242256 by Livia Irene RN Outcome: Progressing 04/22/2024 2250 by Livia Irene RN Outcome: Progressing 04/22/2024 224 by Livia Irene RN Outcome: Progressing Goal: Consume prescribed supplement 04/22/20242256 by Livia Irene RN Outcome: Progressing 04/22/2024 2250 by Livia Irene RN Outcome: Progressing 04/22/2024 224 by Livia Irene RN Outcome: Progressing Goal: Adequate PO fluid intake 04/22/2024 225 by Livia Irene RN Outcome: Progressing 04/22/2024 2250 by Livia Irene RN Outcome: Progressing 04/22/2024 224 by Livia Irene RN Outcome: Progressing Goal: Nutrition support goals are met within 48 hrs 04/22/2024 2257 by Livia Irene RN Outcome: Progressing 04/22/2024 2250 by Liiva Irene RN Outcome: Progressing 04/22/2024 2249 by Livia Irene RN Outcome: Progressing Goal: Lab values WNL 04/22/2024 2257 by Livia Irene RN Outcome: Progressing 04/22/2024 2250 by Livia Irene RN Outcome: Progressing 04/22/2024 2249 by Livia Irene RN Outcome: Progressing Goal: Electrolytes WNL 04/22/2024 2257 by Livia Irene RN Outcome: Progressing 04/22/2024 2250 by Livia Irene RN Outcome: Progressing 04/22/2024 2249 by Livia Irene RN Outcome: Progressing Goal: Promote healing 04/22/2024 2257 by Livia Irene RN Outcome: Progressing 04/22/2024 2250 by Livia Irene RN Outcome: Progressing 04/22/2024 2249 by Livia Irene RN Outcome: Progressing Goal: Maintain stable weight 04/22/2024 2257 by Livia Irene RN Outcome: Progressing 04/22/2024 2250 by Livia Irene RN Outcome: Progressing 04/22/2024 2249 by Livia Irene RN Outcome: Progressing [facility] Plan of care note* Care Plan - Livia Irene RN - 04/22/2024 10:50 PM EDT The patient's goals for the shift include The clinical goals for the shift include tolerate peg tube placement Problem: Pain - Adult Goal: Verbalizes/displays adequate comfort level or baseline comfort level Outcome: Progressing Flowsheets (Taken 04/22/20242248) Verbalizes/displays adequate comfort level or baseline comfort level: Assess pain using appropriatepain scale Problem: Discharge Planning Goal: Discharge to home or other facility with appropriate resources Outcome: Progressing Problem: Chronic Conditions and Co-morbidities Goal: Patient's chronic conditions and co-morbidity symptoms are monitored and maintained or improved Outcome: Progressing Flowsheets (Taken 04/22/2024 1540) Care Plan - Patient's Chronic Conditions and Co-Morbidity Symptoms are Monitored and Maintained or Improved: Monitor and assess patient's chronic conditions and comorbid symptoms for stability, deterioration, or improvement Problem: Skin Goal: Participates in plan/prevention/treatment measures Outcome: Progressing Goal: Prevent/manage excess moisture Outcome: Progressing Goal: Promote/optimize nutrition Outcome: Progressing Goal: Promote skin healing Outcome: Progressing Problem: Diabetes Goal: Increase stability of blood glucose readings by end of shift Outcome: Progressing Goal: Maintain glucose levels >70mg/dl to <250mg/dl throughout shift Outcome: Progressing Problem: Nutrition Goal: Oral intake greater 75% Outcome: Progressing Goal: Consume prescribed supplement Outcome: Progressing Goal: Adequate PO fluid intake Outcome: Progressing Goal: Nutrition support goals are met within 48 hrs Outcome: Progressing Goal: Lab values WNL Outcome: Progressing Goal: Electrolytes WNL Outcome: Progressing Goal: Promote healing Outcome: Progressing Goal: Maintain stable weight Outcome: Progressing [facility] Work Phone: 1(291) 523-561709-13-2024 Nurse Note* Steven Crawley RN - 04/22/2024 7:10 PM EDT Discussed with Primary RN tube feed order for patient. Reached out to provider for clarity of order. [facility] Nurse Note* Steven Crawley RN - 04/22/2024 7:10 PM EDT Discussed with Primary RN tube feed order for patient. Reached out to provider for clarity of order. [facility] Work Phone: 1(126) 488-287009-13-2024 Procedure note* Nissa Haas DO - 04/22/2024 9:00 AM EDT PEG tube placement Reason: Need for nutritional supplementation Consent: Obtained from guardian over the phone Time out: Performed at the bedside with ORT Procedure: Please see endoscopy report by Dr. Jones Please see anesthesia report by Dr. Pace. The abdomen was cleaned thoroughly with chlorhexidine and draped in sterile fashion I was easily able to see a light reflex and we used a light reflex as our spot. Lidocaine was used to anesthetize the area A large bore needle was then inserted and easily visualized directly entering the stomach. A snare was placed over the catheter and the needle was removed A wire was then placed down to the catheter and pulled out through the mouth The PEG tube was then pulled down through the esophagus and out through the abdominal wall after a small jeremy was made in the skin at the wire insertion point Catheter was secured in place Endoscopy once again visualized the tube to be in a good position There was a small hematoma right beside the tube from the lidocaine anesthesia Otherwise she tolerated procedure well without any adverse events noted The tube can now be used for feeding T [facility] Work Phone: 1(230) 929-227209-13-2024 Procedure note* Nissa Haas DO - 04/22/2024 9:00 AM EDT PEG tube placement Reason: Need for nutritional supplementation Consent: Obtained from guardian over the phone Time out: Performed at the bedside with ORT Procedure: Please see endoscopy report by Dr. Jones Please see anesthesia report by Dr. Pace. The abdomen was cleaned thoroughly with chlorhexidine and draped in sterile fashion I was easily able to see a light reflex and we used a light reflex as our spot. Lidocaine was used to anesthetize the area A large bore needle was then inserted and easily visualized directly entering the stomach. A snare was placed over the catheter and the needle was removed A wire was then placed down to the catheter and pulled out through the mouth The PEG tube was then pulled down through the esophagus and out through the abdominal wall after a small jeremy was made in the skin at the wire insertion point Catheter was secured in place Endoscopy once again visualized the tube to be in a good position There was a small hematoma right beside the tube from the lidocaine anesthesia Otherwise she tolerated procedure well without any adverse events noted The tube can now be used for feeding [facility] Work Phone: 1(378) 715-198909-12-2024 Plan of care note* Care Plan - Lakesha Peters RN - 04/21/2024 5:32 AM EDT Problem: Skin Goal: Participates in plan/prevention/treatment measures Flowsheets (Taken 04/21/2024 05) Participates in plan/prevention/treatment measures: Elevate heels Goal: Prevent/manage excess moisture Flowsheets (Taken 04/21/2024530) Prevent/manage excess moisture: Cleanse incontinence/protect with barrier cream Goal: Promote/optimize nutrition Flowsheets (Taken 04/21/2024530) Promote/optimize nutrition: Assist with feeding Goal: Promote skin healing Flowsheets (Taken 04/21/2024530) Promote skin healing: Turn/reposition every 2 hours/use positioning/transfer devices Problem: Diabetes Goal: Vital signs within normal range for age by end of shift Outcome: Met The patient's goals for the shift include The clinical goals for the shift include increase oral intake Goal met [facility] Consult note* Livia Forman RDN, LD - 04/20/2024 11:33 AM EDTAssociated Order(s): IP CONSULT TO NUTRITION SERVICES Nutrition Initial Assessment: Nutrition Assessment Reason for Assessment: Admission nursing screening Patient is a 79 y.o. female presenting with altered mental status. Denies any N/V/D/C at this time.Pt with decreased PO intake and adult failure to thrive. Pt on pureed diet with moderately thick liquids. Being spoon fed only. Rec; magic cup 2x daily with L/D providing an additional 290 kcals and 9g of protein each. Nutrition History: Energy Intake: Poor < 50 % Food and Nutrient History: (Pt with poor PO this am at breakfast. in talks about PEG tube, awaiting consult if that is the route taken) Food Allergies/Intolerances: None GI Symptoms: None Oral Problems: None Anthropometrics: Height: 155 cm (5' 1.02) Weight: 50.5 kg (111 lb 5.3 oz) BMI (Calculated): 21.02 Weight Change %: Weight History / % Weight Change: (wt gain of 3.6% BW since 12/09/23 (4 months) not significant.) Significant Weight Loss: No Nutrition Focused Physical Exam Findings: Subcutaneous Fat Loss: Orbital Fat Pads: Mild-Moderate (slight dark circles and slight hollowing) Buccal Fat Pads: Mild-Moderate (flat cheeks, minimal bounce) Muscle Wasting: Temporalis: Mild-Moderate (slight depression) Pectoralis (Clavicular Region): Mild-Moderate (some protrusion of clavicle) Edema: Edema: none Physical Findings: Hair: Negative Eyes: Negative Mouth: Negative Skin: Negative (Skin noting wound to sacrum.) Nutrition Significant Labs: CBC Trend: Results from last 7 days Lab Units 04/21/2443404/20/2440204/19/24 0356 04/18/24 0951 WBC AUTO x10*3/uL 9.2 11.3 11.2 12.7* RBC AUTO x10*6/uL 3.16* 3.02* 3.11* 3.65* HEMOGLOBIN g/dL 10.2* 9.4* 9.8* 11.7* HEMATOCRIT % 31.8* 31.1* 33.3* 39.8 MCV fL 101* 103* 107* 109* PLATELETS AUTO x10*3/uL 219 216 228 268 , BMP Trend: Results from last 7 days Lab Units 04/21/2443404/20/2440204/19/24 0356 04/18/24 0951 GLUCOSE mg/dL 71* 138* 120* 126* CALCIUM mg/dL 8.6 9.9 12.5* 17.3* SODIUM mmol/L 144 142 155* 158* POTASSIUM mmol/L 3.4* 3.1* 3.5 4.9 CO2 mmol/L 27 28 35* 43* CHLORIDE mmol/L 112* 107 116* 111* BUN mg/dL 34* 58* 97* 145* CREATININE mg/dL 1.16* 1.38* 1.92* 2.71* , A1C: Lab Results Component Value Date HGBA1C 5.4 03/21/2024 Nutrition Specific Medications: ARIPiprazole, 10 mg, oral, Nightly carBAMazepine, 100 mg, oral, Nightly docusate sodium, 100 mg, oral, Daily enoxaparin, 30 mg, subcutaneous, q24h lamoTRIgine, 50 mg, oral, BID levothyroxine, 50 mcg, oral, Daily mupirocin, , Topical, BID polyethylene glycol, 17 g, oral, Daily potassium chloride CR, 40 mEq, oral, Once pravastatin, 20 mg, oral, Nightly I/O: ; Dietary Orders (From admission, onward) Start Ordered 04/21/24 1108 Adult diet Regular; Pureed 4; Moderately thick 3; 1:1 Feeding, Spoon feed only Diet effective now Question Answer Comment Diet type Regular Texture Pureed 4 Fluid consistency Moderately thick 3 Select tray type: 1:1 Feeding Select tray type: Spoon feed only 04/21/24 1107 Estimated Needs: Total Energy Estimated Needs (kCal): 1550 kCal Method for Estimating Needs: 30-35kcals/kg IBW ([id number]) Total Protein Estimated Needs (g): 55 g Method for Estimating Needs: 1-1.2g/kg IBW (48-58) Total Fluid Estimated Needs (mL): 1550 mL Method for Estimating Needs: 1 ml/kcal Nutrition Diagnosis Malnutrition Diagnosis Patient has Malnutrition Diagnosis: Yes Diagnosis Status: New Malnutrition Diagnosis: Moderate malnutrition related to chronic disease or condition As Evidenced by: poor PO intake >7 days, mild loss of subcutaneous fat and muscle Nutrition Interventions/Recommendations Nutrition Prescription: Individualized Nutrition Prescription Provided for : (Individualized nutrition prescription of 1550kcals and 55g of protein to be provided with diet order. (Pureed, moderately thick liquids)) Nutrition Interventions: Interventions: Meals and snacks, Medical food supplement Meals and Snacks: (reg diet, pureed textures and moderately thick liquids) Medical Food Supplement: Commercial food Goal: magic cup 2x daily (290 kcals and 9g protein each) Nutrition Monitoring and Evaluation Food/Nutrient Related History Monitoring Monitoring and Evaluation Plan: Energy intake Energy Intake: Estimated energy intake Criteria: Continue to monitor PO intake, goal of >50% PO of meals Additional Plans: Magic cup 2x daily providing an additional 290 kcals and 9g of protein each. Body Composition/Growth/Weight History Monitoring and Evaluation Plan: Weight Weight: Weight change Criteria: Continue to monitor wt status and wt changes. Time Spent (min): 60 minutes [facility] Work Phone: 1(603) 950-823009-11-2024 Plan of care note* Care Plan - Lakesha Peters RN - 04/20/2024 5:57 AM EDT Problem: Skin Goal: Participates in plan/prevention/treatment measures Flowsheets (Taken 04/20/2024 0556) Participates in plan/prevention/treatment measures: Elevate heels Goal: Prevent/manage excess moisture Flowsheets (Taken 04/20/2024555) Prevent/manage excess moisture: Use wicking fabric (obtain order) Goal: Promote/optimize nutrition Flowsheets (Taken 04/20/2024555) Promote/optimize nutrition: Monitor/record intake including meals Problem: Nutrition Goal: Oral intake greater 75% Outcome: Progressing The patient's goals for the shift include The clinical goals for the shift include maintain IV access. tolerate rehydration Goal met [facility] Work Phone: [phone]) 822-223509-10-2024 Consult note* Nissa Haas DO - 04/19/2024 12:21 PM EDTAssociated Order(s): IP CONSULT TO NEPHROLOGY Reason For Consult Hypercalcemia and acute renal failure History Of Present Illness Mik Shelton is a 79 y.o. female presenting with altered mental status decreased oral intake. She presented to the emergency room due to a change in her mental status from her baseline and alsoat the nursing facility where she resides she was having decreased oral intake not eating really atall and losing weight. When she arrived she was found to be in acute renal failure and also hypercalcemic very elevated. She was started on IV fluids also given calcitonin and has responded so far. This a.m. when I met her she is resting pretty comfortably in bed she does not answer any questionsfor me she is awake and alert but is not answering questions or talking. Past Medical History She has a past medical history of Cerebral palsy (Multi), Diabetes mellitus (Multi), Hypothyroidism, Psychiatric disorder, and Seizures (Multi). Surgical History She has no past surgical history on file. Social History She reports that she has never smoked. She has never used smokeless tobacco. She reports that she does not currently use alcohol. She reports that she does not use drugs. Family History Family History Family history unknown: Yes Allergies Amoxicillin, Ampicillin, and Penicillin Review of Systems A full 10 point review of systems at this time is not able to be obtained she does not answer any questions for me Physical Exam Physical Exam HENT: Head: Normocephalic and atraumatic. Right Ear: External ear normal. Left Ear: External ear normal. Nose: Nose normal. Mouth/Throat: Mouth: Mucous membranes are moist. Pharynx: Oropharynx is clear. Eyes: Extraocular Movements: Extraocular movements intact. Conjunctiva/sclera: Conjunctivae normal. Pupils: Pupils are equal, round, and reactive to light. Cardiovascular: Rate and Rhythm: Normal rate and regular rhythm. Pulmonary: Effort: Pulmonary effort is normal. Breath sounds: Normal breath sounds. Abdominal: General: Abdomen is flat. Palpations: Abdomen is soft. Skin: General: Skin is warm and dry. Neurological: General: No focal deficit present. Mental Status: She is alert. Comments: NonVerbal at this time. I&O 24HR Intake/Output Summary (Last 24 hours) at 04/19/2024 1221 Last data filed at 04/19/2024 0604 Gross per 24 hour Intake 4173.66 ml Output 750 ml Net 3423.66 ml Vitals 24HR Heart Rate: [78-105] Temp: [35.6 C (96.1 F)-36.2 C (97.2 F)] Resp: [15-27] BP: (115-165)/(60-141) Height: [155 cm (5' 1.02)] Weight: [51.4 kg (113 lb 5.1 oz)-51.5 kg (113 lb 8.6 oz)] SpO2: [92 %-100 %] Scheduled medications calcitonin, 100 Units, intramuscular, Daily enoxaparin, 30 mg, subcutaneous, q24h lamoTRIgine, 50 mg, oral, BID [START ON 04/20/2024] levoFLOXacin, 250 mg, intravenous, q48h levothyroxine, 50 mcg, oral, Daily mupirocin, , Topical, BID polyethylene glycol, 17 g, oral, Daily potassium chloride CR, 20 mEq, oral, Once pravastatin, 20 mg, oral, Nightly Continuous medications dextrose 5%, 100 mL/hr, Last Rate: 100 mL/hr (04/19/24 1027) PRN medications PRN medications: acetaminophen OR acetaminophen OR acetaminophen, acetaminophen OR acetaminophen OR acetaminophen, LORazepam, ondansetron ODT OR ondansetron, oxygen Relevant Results Results reviewed Assessment/Plan Acute renal failure with azotemia Hypernatremia Hypercalcemia Cerebral palsy Recent weight loss Hypothyroidism Plan: At this time it appears that likely her entire presentation was due to severe dehydration. Her calcium is improved dramatically. Her renal function is also improving. She does have a free water deficit and currently is getting D5 water She is not taking in oral nutrition She is awake and alert today nonverbal with me currently I will call and discuss with her POA It appears to me that this is likely totally from a nonintake issue we are still waiting for PTH and vitamin D but I expect these to be nondiagnostic and likely pointing towards the same issue With this in mind I will discuss with POA that she likely will need a feeding tube if they want to continue going forward with full care at this time with her dramatic improvement I will go ahead anddiscontinue calcitonin Continue fluids and watch electrolytes and labs 1300: I called and updated her POA Alise. I discussed with her her overall course so far and gave her an explanation of the above At this time if she continues to do well with supportive measures and there are other test come back all pointing towards inability to keep up with her metabolic demands then they would want to proceed with a feeding tube. If all of this comes back negative then my recommendation to go forward would be a feeding tube andso we will discuss with them again on Thursday or and if workup for secondary reasons come back negative then likely will proceed with a feeding tube this Thursday Assessment & Plan Altered mental status, unspecified altered mental status type Nissa Haas DO T [facility] Work Phone: [phone]) 548-916809-10-2024 Plan of care note* Care Plan - Lakesha Peters RN - 04/19/2024 5:10 AM EDT Problem: Safety - Adult Goal: Free from fall injury Outcome: Met Problem: Skin Goal: Prevent/minimize sheer/friction injuries Outcome: Met Problem: Nutrition Goal: BG 80-180 mg/dL Outcome: Met The patient's goals for the shift include The clinical goals for the shift include [facility] Work Phone: [phone]) 151-678909-09-2024 Plan of care note* Care Plan - Kristi Sandra RN - 04/18/2024 7:00 PM EDT The patient's goals for the shift include The clinical goals for the shift include admission [facility] Work Phone: [phone]) 435-716009-09-2024 History and physical note* Jorge Roberts MD - 04/18/2024 2:36 PM EDT History Of Present Illness Mik Shelton is a 79 y.o. female presenting with confusion, altered mental status with baseline cognitive decline who lives at [facility] with full-time caregiver. Patient was reported to have decrease oral intake for a day and normally on pur ed diet. Full code per discussion with caregiver at bedside. No fever chills nausea vomiting diarrhea. Overall fatigue ill-appearing. Patient mostly bedbound. Possible urinary frequency and dysuria with generalized weakness. Barely follows any commands does not seem to be communicative even at baseline. She did not look well and appears to be lethargic as well more somnolent than usual. Unable to obtain meaningful history at this time. EKG sinus tachycardia. Lab workup with severe hypercalcemia, hyponatremia, dehydration, RASHIDA and lactic acidosis. Possible UTI as well. No bowel or bladder incontinence or tongue bite or frothy secretions from mouth. No bleeding apparently. Patient received 2 L normal saline in the ER as well Levaquin IV. Flu and COVID-[address] head also negative for acute process. Chest x-ray not concerning for pneumonia at this time. Past Medical History Past Medical History: Diagnosis Date Cerebral palsy (Multi) Diabetes mellitus (Multi) Hypothyroidism Psychiatric disorder Seizures (Multi) Cerebral palsy Diabetes mellitus Osteoporosis Seizures Hypothyroidism Hypertension Hyperlipidemia Surgical History Unable to obtain Social History She reports that she has never smoked. She has never used smokeless tobacco. She reports that she does not currently use alcohol. She reports that she does not use drugs. Family History Family History Family history unknown: Yes Unable to obtain Allergies Amoxicillin, Ampicillin, and Penicillin Review of Systems All other 12 point review of systems negative except HPI Physical Exam General Appearance: AAO x 0, ill-appearing Skin: skin color pale, warm, and dry; no suspicious rashes or lesions Eyes : PERRL, EOM's intact ENT: mucous membranes pink and dry Neck: normocephalic Respiratory: Diminished at bases bilaterally Heart: regular rate and rhythm. Abdomen: Nondistended, positive bowel sounds x4, soft, nontender Extremities: no edema Peripheral pulses: normal x4 extremities Neuro: Unable to assess, slight contractures in lower extremities. Patient does not follow commands. Cerebral palsy Last Recorded Vitals Blood pressure (!) 156/141, pulse 94, temperature 36.2 C (97.2 F), temperature source Tympanic, resp. rate 22, height 1.55 m (5' 1.02), weight 51.5 kg (113 lb 8.6 oz), SpO2 100%. Relevant Results Scheduled medications calcitonin, 100 Units, intramuscular, Daily enoxaparin, 30 mg, subcutaneous, q24h lamoTRIgine, 50 mg, oral, BID [START ON 04/20/2024] levoFLOXacin, 250 mg, intravenous, q48h [START ON 04/19/2024] levothyroxine, 50 mcg, oral, Daily mupirocin, , Topical, BID polyethylene glycol, 17 g, oral, Daily pravastatin, 20 mg, oral, Nightly Continuous medications dextrose 5%, 75 mL/hr sodium chloride 0.9%, 125 mL/hr, Last Rate: 125 mL/hr (04/18/24 0924) PRN medications PRN medications: acetaminophen OR acetaminophen OR acetaminophen, acetaminophen OR acetaminophen OR acetaminophen, ondansetron ODT OR ondansetron, oxygen Results for orders placed or performed during the hospital encounter of 04/18/24 (from the past 24 hour(s)) Urinalysis with Reflex Culture and Microscopic Result Value Ref Range Color, Urine Yellow Light-Yellow, Yellow, Dark-Yellow Appearance, Urine Turbid (N) Clear Specific Simms, Urine 1.013 1.005 - 1.035 pH, Urine 7.0 5.0, 5.5, 6.0, 6.5, 7.0, 7.5, 8.0 Protein, Urine 10 (TRACE) NEGATIVE, 10 (TRACE), 20 (TRACE) mg/dL Glucose, Urine Normal Normal mg/dL Blood, Urine NEGATIVE NEGATIVE Ketones, Urine NEGATIVE NEGATIVE mg/dL Bilirubin, Urine NEGATIVE NEGATIVE Urobilinogen, Urine Normal Normal mg/dL Nitrite, Urine 2+ (A) NEGATIVE Leukocyte Esterase, Urine 250 Rogelio/ L (A) NEGATIVE Microscopic Only, Urine Result Value Ref Range WBC, Urine 11-20 (A) 1-5, NONE /HPF RBC, Urine 1-2 NONE, 1-2, 3-5 /HPF Squamous Epithelial Cells, Urine 1-9 (SPARSE) Reference range not established. /HPF Bacteria, Urine 1+ (A) NONE SEEN /HPF Sars-CoV-2 PCR Result Value Ref Range Coronavirus 2019, PCR Not Detected Not Detected Influenza A, and B PCR Result Value Ref Range Flu A Result Not Detected Not Detected Flu B Result Not Detected Not Detected CBC and Auto Differential Result Value Ref Range WBC 12.7 (H) 4.4 - 11.3 x10*3/uL nRBC 0.0 0.0 - 0.0 /100 WBCs RBC 3.65 (L) 4.00 - 5.20 x10*6/uL Hemoglobin 11.7 (L) 12.0 - 16.0 g/dL Hematocrit 39.8 36.0 - 46.0 % MCV 109 (H) 80 - 100 fL MCH 32.1 26.0 - 34.0 pg MCHC 29.4 (L) 32.0 - 36.0 g/dL RDW 13.5 11.5 - 14.5 % Platelets 268 150 - 450 x10*3/uL Neutrophils % 65.4 40.0 - 80.0 % Immature Granulocytes %, Automated 0.2 0.0 - 0.9 % Lymphocytes % 23.3 13.0 - 44.0 % Monocytes % 5.7 2.0 - 10.0 % Eosinophils % 5.1 0.0 - 6.0 % Basophils % 0.3 0.0 - 2.0 % Neutrophils Absolute 8.28 (H) 1.60 - 5.50 x10*3/uL Immature Granulocytes Absolute, Automated 0.03 0.00 - 0.50 x10*3/uL Lymphocytes Absolute 2.95 0.80 - 3.00 x10*3/uL Monocytes Absolute 0.72 0.05 - 0.80 x10*3/uL Eosinophils Absolute 0.64 (H) 0.00 - 0.40 x10*3/uL Basophils Absolute 0.04 0.00 - 0.10 x10*3/uL Basic metabolic panel Result Value Ref Range Glucose 126 (H) 74 - 99 mg/dL Sodium 158 (H) 136 - 145 mmol/L Potassium 4.9 3.5 - 5.3 mmol/L Chloride 111 (H) 98 - 107 mmol/L Bicarbonate 43 (HH) 21 - 32 mmol/L Anion Gap 9 (L) 10 - 20 mmol/L Urea Nitrogen 145 (HH) 6 - 23 mg/dL Creatinine 2.71 (H) 0.50 - 1.05 mg/dL eGFR 17 (L) >60 mL/min/1.73m*2 Calcium 17.3 (HH) 8.6 - 10.3 mg/dL Magnesium Result Value Ref Range Magnesium 2.50 (H) 1.60 - 2.40 mg/dL Lipase Result Value Ref Range Lipase 32 9 - 82 U/L Hepatic function panel Result Value Ref Range Albumin 3.8 3.4 - 5.0 g/dL Bilirubin, Total 0.2 0.0 - 1.2 mg/dL Bilirubin, Direct 0.1 0.0 - 0.3 mg/dL Alkaline Phosphatase 67 33 - 136 U/L ALT 15 7 - 45 U/L AST 15 9 - 39 U/L Total Protein 6.8 6.4 - 8.2 g/dL Lactate Result Value Ref Range Lactate 2.2 (H) 0.4 - 2.0 mmol/L Troponin I, High Sensitivity Result Value Ref Range Troponin I, High Sensitivity 12 0 - 13 ng/L TSH Result Value Ref Range Thyroid Stimulating Hormone 2.13 0.44 - 3.98 mIU/L Lactate Result Value Ref Range Lactate 1.3 0.4 - 2.0 mmol/L CT head wo IV contrast Result Date: 04/18/2024 Interpreted By: Selma Moya, STUDY: CT HEAD WO IV CONTRAST; 04/18/2024 11:14 am INDICATION: Signs/Symptoms:MENTAL STATUS CHANGE. COMPARISON: 02/10/2023 ACCESSION NUMBER(S): [id number] ORDERING CLINICIAN: LAZARO HANDY TECHNIQUE: Examination was performed in the axial plane with sagittal and coronal reconstructions. Bone and soft tissue algorithms were performed. FINDINGS: INTRACRANIAL: Status post bifrontal craniotomies. 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 This is unchanged. No mass or mass effect is identified. There is no hemorrhage or subdural fluid collection. There is no acute infarct. EXTRACRANIAL: Visualized paranasal sinuses and mastoids are clear. 1. No acute intracranial pathology. 2. Status post bifrontal craniotomy with bifrontal postsurgicalencephalomalacia. MACRO: None Signed by: Selma Moya 04/18/2024 11:31 AM Dictation workstation: [id number] XR chest 1 view Result Date: 04/18/2024 Interpreted By: Uriel Encarnacion, STUDY: XR CHEST 1 VIEW; 04/18/2024 9:23 am INDICATION: Signs/Symptoms:MENTAL STATUS CHANGE. COMPARISON: 02/10/2023. ACCESSION NUMBER(S): [id number] ORDERING CLINICIAN: LAZARO HANDY FINDINGS: CARDIOMEDIASTINAL SILHOUETTE: Patient is rotated to the left. Dense aortic calcifications are again seen. Cardiac silhouette is stable and not significantly enlarged. LUNGS: Inspiratory volume is low. No focal infiltrate. No definite pleural effusion. No pneumothorax is seen. ABDOMEN: No remarkable upper abdominal findings. BONES: Thoracic dextrocurvature may be partially exaggerated by positioning. Multilevel endplate spurring present in the spine. Degenerative changesof the shoulders are partially visualized. 1. No evidence of acute cardiopulmonary process. MACRO: None. Signed by: Uriel Encarnacion 04/18/2024 10:03 AM Dictation workstation: [id number] \ All data reviewed by me independently Assessment/Plan Assessment & Plan Altered mental status, unspecified altered mental status type 79-year-old female with history of Cerebral palsy Diabetes mellitus Osteoporosis Seizures Hypothyroidism Hypertension Hyperlipidemia Presented with Hypercalcemia Metabolic encephalopathy Lactic acidosis Dehydration UTI RASHIDA Hypernatremia Anemia Plan Admit to ICU Cardiopulmonary monitoring Nephrology consult Start 100 mg calcitonin IM daily Seems to have free water deficit around 2.9 L D5W at 75 cc/h Follow-up yearly BMP Monitor urine output Can check serum respiratory, urine osmolality Follow mentation Neurochecks Fall, aspiration, seizure precaution Nutrition Hold any oral feeding until more alert and able to pass her baseline swallow assessment Check TSH, PTH, vitamin D level Trend lactate until normal Levaquin IV and follow urine cultures Daily CBC with BMP For anemia, iron panel serum ferritin and stool FOBT Monitor fingerstick Continue home medicines as tolerated On Synthroid 50 mcg daily, Lamictal 50 Mg p.o. twice daily, pravastatin 20 mg daily Hold nephrotoxic medicines including metformin and BRYANT inhibitor's Follow vitals Supportive care Tylenol for pain and antiemetics if required Lovenox for DVT prophylaxis To adjust fluids as deemed appropriate Critical care time spent in managing patient excluding billable procedures greater than 50 minutes High risk of clinical deterioration including cardiopulmonary arrest and multiorgan failure Full code Jorge Roberts MD [facility] Work Phone: [phone]) [phone] History and physical note* Jorge Roberts MD - 04/18/2024 2:36 PM EDT History Of Present Illness Mik Shelton is a 79 y.o. female presenting with confusion, altered mental status with baseline cognitive decline who lives at [facility] with full-time caregiver. Patient was reported to have decrease oral intake for a day and normally on pur ed diet. Full code per discussion with caregiver at bedside. No fever chills nausea vomiting diarrhea. Overall fatigue ill-appearing. Patient mostly bedbound. Possible urinary frequency and dysuria with generalized weakness. Barely follows any commands does not seem to be communicative even at baseline. She did not look well and appears to be lethargic as well more somnolent than usual. Unable to obtain meaningful history at this time. EKG sinus tachycardia. Lab workup with severe hypercalcemia, hyponatremia, dehydration, RASHIDA and lactic acidosis. Possible UTI as well. No bowel or bladder incontinence or tongue bite or frothy secretions from mouth. No bleeding apparently. Patient received 2 L normal saline in the ER as well Levaquin IV. Flu and COVID-[address] head also negative for acute process. Chest x-ray not concerning for pneumonia at this time. Past Medical History Past Medical History: Diagnosis Date Cerebral palsy (Multi) Diabetes mellitus (Multi) Hypothyroidism Psychiatric disorder Seizures (Multi) Cerebral palsy Diabetes mellitus Osteoporosis Seizures Hypothyroidism Hypertension Hyperlipidemia Surgical History Unable to obtain Social History She reports that she has never smoked. She has never used smokeless tobacco. She reports that she does not currently use alcohol. She reports that she does not use drugs. Family History Family History Family history unknown: Yes Unable to obtain Allergies Amoxicillin, Ampicillin, and Penicillin Review of Systems All other 12 point review of systems negative except HPI Physical Exam General Appearance: AAO x 0, ill-appearing Skin: skin color pale, warm, and dry; no suspicious rashes or lesions Eyes : PERRL, EOM's intact ENT: mucous membranes pink and dry Neck: normocephalic Respiratory: Diminished at bases bilaterally Heart: regular rate and rhythm. Abdomen: Nondistended, positive bowel sounds x4, soft, nontender Extremities: no edema Peripheral pulses: normal x4 extremities Neuro: Unable to assess, slight contractures in lower extremities. Patient does not follow commands. Cerebral palsy Last Recorded Vitals Blood pressure (!) 156/141, pulse 94, temperature 36.2 C (97.2 F), temperature source Tympanic, resp. rate 22, height 1.55 m (5' 1.02), weight 51.5 kg (113 lb 8.6 oz), SpO2 100%. Relevant Results Scheduled medications calcitonin, 100 Units, intramuscular, Daily enoxaparin, 30 mg, subcutaneous, q24h lamoTRIgine, 50 mg, oral, BID [START ON 04/20/2024] levoFLOXacin, 250 mg, intravenous, q48h [START ON 04/19/2024] levothyroxine, 50 mcg, oral, Daily mupirocin, , Topical, BID polyethylene glycol, 17 g, oral, Daily pravastatin, 20 mg, oral, Nightly Continuous medications dextrose 5%, 75 mL/hr sodium chloride 0.9%, 125 mL/hr, Last Rate: 125 mL/hr (04/18/24 0924) PRN medications PRN medications: acetaminophen OR acetaminophen OR acetaminophen, acetaminophen OR acetaminophen OR acetaminophen, ondansetron ODT OR ondansetron, oxygen Results for orders placed or performed during the hospital encounter of 04/18/24 (from the past 24 hour(s)) Urinalysis with Reflex Culture and Microscopic Result Value Ref Range Color, Urine Yellow Light-Yellow, Yellow, Dark-Yellow Appearance, Urine Turbid (N) Clear Specific Simms, Urine 1.013 1.005 - 1.035 pH, Urine 7.0 5.0, 5.5, 6.0, 6.5, 7.0, 7.5, 8.0 Protein, Urine 10 (TRACE) NEGATIVE, 10 (TRACE), 20 (TRACE) mg/dL Glucose, Urine Normal Normal mg/dL Blood, Urine NEGATIVE NEGATIVE Ketones, Urine NEGATIVE NEGATIVE mg/dL Bilirubin, Urine NEGATIVE NEGATIVE Urobilinogen, Urine Normal Normal mg/dL Nitrite, Urine 2+ (A) NEGATIVE Leukocyte Esterase, Urine 250 Rogelio/ L (A) NEGATIVE Microscopic Only, Urine Result Value Ref Range WBC, Urine 11-20 (A) 1-5, NONE /HPF RBC, Urine 1-2 NONE, 1-2, 3-5 /HPF Squamous Epithelial Cells, Urine 1-9 (SPARSE) Reference range not established. /HPF Bacteria, Urine 1+ (A) NONE SEEN /HPF Sars-CoV-2 PCR Result Value Ref Range Coronavirus 2019, PCR Not Detected Not Detected Influenza A, and B PCR Result Value Ref Range Flu A Result Not Detected Not Detected Flu B Result Not Detected Not Detected CBC and Auto Differential Result Value Ref Range WBC 12.7 (H) 4.4 - 11.3 x10*3/uL nRBC 0.0 0.0 - 0.0 /100 WBCs RBC 3.65 (L) 4.00 - 5.20 x10*6/uL Hemoglobin 11.7 (L) 12.0 - 16.0 g/dL Hematocrit 39.8 36.0 - 46.0 % MCV 109 (H) 80 - 100 fL MCH 32.1 26.0 - 34.0 pg MCHC 29.4 (L) 32.0 - 36.0 g/dL RDW 13.5 11.5 - 14.5 % Platelets 268 150 - 450 x10*3/uL Neutrophils % 65.4 40.0 - 80.0 % Immature Granulocytes %, Automated 0.2 0.0 - 0.9 % Lymphocytes % 23.3 13.0 - 44.0 % Monocytes % 5.7 2.0 - 10.0 % Eosinophils % 5.1 0.0 - 6.0 % Basophils % 0.3 0.0 - 2.0 % Neutrophils Absolute 8.28 (H) 1.60 - 5.50 x10*3/uL Immature Granulocytes Absolute, Automated 0.03 0.00 - 0.50 x10*3/uL Lymphocytes Absolute 2.95 0.80 - 3.00 x10*3/uL Monocytes Absolute 0.72 0.05 - 0.80 x10*3/uL Eosinophils Absolute 0.64 (H) 0.00 - 0.40 x10*3/uL Basophils Absolute 0.04 0.00 - 0.10 x10*3/uL Basic metabolic panel Result Value Ref Range Glucose 126 (H) 74 - 99 mg/dL Sodium 158 (H) 136 - 145 mmol/L Potassium 4.9 3.5 - 5.3 mmol/L Chloride 111 (H) 98 - 107 mmol/L Bicarbonate 43 (HH) 21 - 32 mmol/L Anion Gap 9 (L) 10 - 20 mmol/L Urea Nitrogen 145 (HH) 6 - 23 mg/dL Creatinine 2.71 (H) 0.50 - 1.05 mg/dL eGFR 17 (L) >60 mL/min/1.73m*2 Calcium 17.3 (HH) 8.6 - 10.3 mg/dL Magnesium Result Value Ref Range Magnesium 2.50 (H) 1.60 - 2.40 mg/dL Lipase Result Value Ref Range Lipase 32 9 - 82 U/L Hepatic function panel Result Value Ref Range Albumin 3.8 3.4 - 5.0 g/dL Bilirubin, Total 0.2 0.0 - 1.2 mg/dL Bilirubin, Direct 0.1 0.0 - 0.3 mg/dL Alkaline Phosphatase 67 33 - 136 U/L ALT 15 7 - 45 U/L AST 15 9 - 39 U/L Total Protein 6.8 6.4 - 8.2 g/dL Lactate Result Value Ref Range Lactate 2.2 (H) 0.4 - 2.0 mmol/L Troponin I, High Sensitivity Result Value Ref Range Troponin I, High Sensitivity 12 0 - 13 ng/L TSH Result Value Ref Range Thyroid Stimulating Hormone 2.13 0.44 - 3.98 mIU/L Lactate Result Value Ref Range Lactate 1.3 0.4 - 2.0 mmol/L CT head wo IV contrast Result Date: 04/18/2024 Interpreted By: Selma Moya, STUDY: CT HEAD WO IV CONTRAST; 04/18/2024 11:14 am INDICATION: Signs/Symptoms:MENTAL STATUS CHANGE. COMPARISON: 02/10/2023 ACCESSION NUMBER(S): [id number] ORDERING CLINICIAN: LAZARO HANDY TECHNIQUE: Examination was performed in the axial plane with sagittal and coronal reconstructions. Bone and soft tissue algorithms were performed. FINDINGS: INTRACRANIAL: Status post bifrontal craniotomies. 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 This is unchanged. No mass or mass effect is identified. There is no hemorrhage or subdural fluid collection. There is no acute infarct. EXTRACRANIAL: Visualized paranasal sinuses and mastoids are clear. 1. No acute intracranial pathology. 2. Status post bifrontal craniotomy with bifrontal postsurgicalencephalomalacia. MACRO: None Signed by: Selma Moya 04/18/2024 11:31 AM Dictation workstation: [id number] XR chest 1 view Result Date: 04/18/2024 Interpreted By: Uriel Encarnacion, STUDY: XR CHEST 1 VIEW; 04/18/2024 9:23 am INDICATION: Signs/Symptoms:MENTAL STATUS CHANGE. COMPARISON: 02/10/2023. ACCESSION NUMBER(S): [id number] ORDERING CLINICIAN: LAZARO HANDY FINDINGS: CARDIOMEDIASTINAL SILHOUETTE: Patient is rotated to the left. Dense aortic calcifications are again seen. Cardiac silhouette is stable and not significantly enlarged. LUNGS: Inspiratory volume is low. No focal infiltrate. No definite pleural effusion. No pneumothorax is seen. ABDOMEN: No remarkable upper abdominal findings. BONES: Thoracic dextrocurvature may be partially exaggerated by positioning. Multilevel endplate spurring present in the spine. Degenerative changesof the shoulders are partially visualized. 1. No evidence of acute cardiopulmonary process. MACRO: None. Signed by: Uriel Encarnacion 04/18/2024 10:03 AM Dictation workstation: [id number] \ All data reviewed by me independently Assessment/Plan Assessment & Plan Altered mental status, unspecified altered mental status type 79-year-old female with history of Cerebral palsy Diabetes mellitus Osteoporosis Seizures Hypothyroidism Hypertension Hyperlipidemia Presented with Hypercalcemia Metabolic encephalopathy Lactic acidosis Dehydration UTI RASHIDA Hypernatremia Anemia Plan Admit to ICU Cardiopulmonary monitoring Nephrology consult Start 100 mg calcitonin IM daily Seems to have free water deficit around 2.9 L D5W at 75 cc/h Follow-up yearly BMP Monitor urine output Can check serum respiratory, urine osmolality Follow mentation Neurochecks Fall, aspiration, seizure precaution Nutrition Hold any oral feeding until more alert and able to pass her baseline swallow assessment Check TSH, PTH, vitamin D level Trend lactate until normal Levaquin IV and follow urine cultures Daily CBC with BMP For anemia, iron panel serum ferritin and stool FOBT Monitor fingerstick Continue home medicines as tolerated On Synthroid 50 mcg daily, Lamictal 50 Mg p.o. twice daily, pravastatin 20 mg daily Hold nephrotoxic medicines including metformin and BRYANT inhibitor's Follow vitals Supportive care Tylenol for pain and antiemetics if required Lovenox for DVT prophylaxis To adjust fluids as deemed appropriate Critical care time spent in managing patient excluding billable procedures greater than 50 minutes High risk of clinical deterioration including cardiopulmonary arrest and multiorgan failure Full code Jorge Roberts MD documented in this [facility] Work Phone: [phone]) 207-791309-09-2024 Emergency department Note* Lazaro Handy MD - 04/18/2024 8:43 AM EDTAssociated Order(s): Critical Care Chief Complaint: MENTAL STATUS ALTERATION This is a 79-year-old female who lives in a [place] who has full-time aides taking care of her. She had decreased p.o. intake starting yesterday. According to health caregiver she has been much more somnolent than normal. She is not verbal normally. She is able to only take pur ed foods in. She has had no nausea vomiting she has had no fever or chills she is a very poor historian and presents now for evaluation she is a full code according to her health caregivers. Review of Systems Constitutional: Positive for activity change, appetite change and fatigue. Negative for chills and fever. HENT: Negative for congestion and sore throat. Eyes: Negative. Respiratory: Negative for shortness of breath. Cardiovascular: Negative for chest pain and palpitations. Gastrointestinal: Negative for abdominal pain, nausea and vomiting. Genitourinary: Positive for dysuria and frequency. Musculoskeletal: Positive for myalgias. Negative for neck pain and neck stiffness. Neurological: Positive for weakness. Hematological: Negative. Psychiatric/Behavioral: Positive for confusion. Physical Exam Vitals reviewed. Constitutional: Appearance: She is obese. She is ill-appearing and toxic-appearing. Comments: Patient opens her eyes to verbal command she is not able to answer any questions appropriate however she seems very somnolent at this time HENT: Head: Normocephalic and atraumatic. Mouth/Throat: Mouth: Mucous membranes are moist. Eyes: Extraocular Movements: Extraocular movements intact. Pupils: Pupils are equal, round, and reactive to light. Cardiovascular: Rate and Rhythm: Tachycardia present. Heart sounds: Normal heart sounds. No murmur heard. Pulmonary: Effort: No tachypnea or respiratory distress. Breath sounds: Decreased breath sounds present. Abdominal: General: There is no distension. Palpations: There is no mass. Tenderness: There is no abdominal tenderness. Musculoskeletal: General: No swelling or tenderness. Cervical back: Normal range of motion and neck supple. Skin: General: Skin is warm and dry. Capillary Refill: Capillary refill takes less than 2 seconds. Findings: No rash. Comments: DECreased skin turgor Neurological: Mental Status: She is lethargic. Motor: No weakness. Psychiatric: Mood and Affect: Affect is flat. Speech: She is communicative. Behavior: Behavior is slowed. Labs Reviewed CBC WITH AUTO DIFFERENTIAL - Abnormal Result Value WBC 12.7 (*) nRBC 0.0 RBC 3.65 (*) Hemoglobin 11.7 (*) Hematocrit 39.8 MCV 109 (*) MCH 32.1 MCHC 29.4 (*) RDW 13.5 Platelets 268 Neutrophils % 65.4 Immature Granulocytes %, Automated 0.2 Lymphocytes % 23.3 Monocytes % 5.7 Eosinophils % 5.1 Basophils % 0.3 Neutrophils Absolute 8.28 (*) Immature Granulocytes Absolute, Automated 0.03 Lymphocytes Absolute 2.95 Monocytes Absolute 0.72 Eosinophils Absolute 0.64 (*) Basophils Absolute 0.04 BASIC METABOLIC PANEL - Abnormal Glucose 126 (*) Sodium 158 (*) Potassium 4.9 Chloride 111 (*) Bicarbonate 43 (*) Anion Gap 9 (*) Urea Nitrogen 145 (*) Creatinine 2.71 (*) eGFR 17 (*) Calcium 17.3 (*) MAGNESIUM - Abnormal Magnesium 2.50 (*) LACTATE - Abnormal Lactate 2.2 (*) Narrative: Venipuncture immediately after or during the administration of Metamizole may lead to falsely low results. Testing should be performed immediately prior to Metamizole dosing. URINALYSIS WITH REFLEX CULTURE AND MICROSCOPIC - Abnormal Color, Urine Yellow Appearance, Urine Turbid (*) Specific Simms, Urine 1.013 pH, Urine 7.0 Protein, Urine 10 (TRACE) Glucose, Urine Normal Blood, Urine NEGATIVE Ketones, Urine NEGATIVE Bilirubin, Urine NEGATIVE Urobilinogen, Urine Normal Nitrite, Urine 2+ (*) Leukocyte Esterase, Urine 250 Rogelio/ L (*) MICROSCOPIC ONLY, URINE - Abnormal WBC, Urine 11-20 (*) RBC, Urine 1-2 Squamous Epithelial Cells, Urine 1-9 (SPARSE) Bacteria, Urine 1+ (*) LIPASE - Normal Lipase 32 Narrative: Venipuncture immediately after or during the administration of Metamizole may lead to falsely low results. Testing should be performed immediately prior to Metamizole dosing. HEPATIC FUNCTION PANEL - Normal Albumin 3.8 Bilirubin, Total 0.2 Bilirubin, Direct 0.1 Alkaline Phosphatase 67 ALT 15 AST 15 Total Protein 6.8 TROPONIN I, HIGH SENSITIVITY - Normal Troponin I, High Sensitivity 12 Narrative: Less than 99th percentile of normal range cutoff- Female and children under 18 years old <14 ng/L; Male <21 ng/L: Negative Repeat testing should be performed if clinically indicated. Female and children under 18 years old 14-50 ng/L; Male 21-50 ng/L: Consistent with possible cardiac damage and possible increased clinical risk. Serial measurements may help to assess extent of myocardial damage. >50 ng/L: Consistent with cardiac damage, increased clinical risk and myocardial infarction. Serial measurements may help assess extent of myocardial damage. NOTE: Children less than 1 year old may have higher baseline troponin levels and results should be interpreted in conjunction with the overall clinical context. NOTE: Troponin I testing is performed using a different testing methodology at [facility] than at [facility]. Direct result comparisons should only be made within the same method. SARS-COV-2 PCR - Normal Coronavirus 2018, PCR Not Detected Narrative: This assay has received FDA Emergency Use Authorization (EUA) and is only authorized for the duration of time that circumstances exist to justify the authorization of the emergency use of in vitro diagnostic tests for the detection of SARS-CoV-2 virus and/or diagnosis of COVID-19 infection under sec tion 564(b)(1) of the Act, 21 U.S.C. 360bbb-3(b)(1). This assay is an in vitro diagnostic nucleic acid amplification test for the qualitative detection of SARS-CoV-2 from nasopharyngeal specimens andhas been validated for use at [facility]. Negative results do not preclude COVID-19 infections and should not be used as the sole basis for diagnosis, treatment, or other management decisions. INFLUENZA A AND B PCR - Normal Flu A Result Not Detected Flu B Result Not Detected Narrative: This assay is an in vitro diagnostic multiplex nucleic acid amplification test for the detection and discrimination of Influenza A & B from nasopharyngeal specimens, and has been validated for use at [facility]. Negative results do not preclude Influenza A/B infections, and should not be used as the sole basis for diagnosis, treatment, or other management decisions. IfInfluenza A/B and RSV PCR results are negative, testing for Parainfluenza virus, Adenovirus and Metapneumovirus is routinely performed for [facility] pediatric oncology and intensive care inpatients, and isavailable on other patients by placing an add-on request. URINE CULTURE BLOOD CULTURE BLOOD CULTURE URINALYSIS WITH REFLEX CULTURE AND MICROSCOPIC Narrative: The following orders were created for panel order Urinalysis with Reflex Culture and Microscopic. Procedure Abnormality Status --------- ------ Urinalysis with Reflex C...[[id number]] Abnormal Final result Extra Urine Otto Tube[[id number]] In process Please view results for these tests on the individual orders. EXTRA URINE OTTO TUBE LACTATE CT head wo IV contrast Final Result 1. No acute intracranial pathology. 2. 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 MACRO: None Signed by: Selma Yuri 04/18/2024 11:31 AM Dictation workstation: [id number] XR chest 1 view Final Result 1. No evidence of acute cardiopulmonary process. MACRO: None. Signed by: Uriel Alysha 04/18/2024 10:03 AM Dictation workstation: [id number] Critical Care Performed by: Lazaro Handy MD Authorized by: Lazaro Handy MD Critical care provider statement: Critical care time (minutes): 42 Critical care time was exclusive of: Separately billable procedures and treating other patients andteaching time Critical care was necessary to treat or prevent imminent or life-threatening deterioration of the following conditions: Electrolyte abnormalities. Critical care was time spent personally by me on the following activities: Blood draw for specimens, development of treatment plan with patient or surrogate, discussions with primary provider, evaluation of patient's response to treatment, examination of patient, obtaining history from patient or surrogate, review of old charts, re-evaluation of patient's condition, pulse oximetry, ordering and review of radiographic studies, ordering and review of laboratory studies and ordering and performingtreatments and interventions Medical Decision Making Differential diagnose include hypoglycemia electrolyte abnormality sepsis pneumonia. Her liver function testing was normal her potassium is 4.9 sodium was elevated at 158 BUN was 145 bicarb was 43 calcium was 17.3 magnesium was 2.5 troponin was negative her COVID testing was negative influenza AMB were negative lactate was positive at 2.2 white count is 12.7 with a normal hemoglobin hematocrit she did have a slight UTI with 11-20 white cells per high-powered field CT scan shows previous bifrontal craniotomy with encephalomalacia chest x- ray was negative. Patient received 2 L normal saline total as well as Levaquin 750 mg intravenously patient will be admitted for severe dehydration hypercalc emia hypernatremia and lactic acidosis with a UTI at this time Amount and/or Complexity of Data Reviewed ECG/medicine tests: independent interpretation performed. Details: Twelve-lead EKG showed sinus tach at 104/min there are some poor R wave progression but noacute ST segment elevation or depressions Diagnoses as of 04/18/24 1144 Altered mental status, unspecified altered mental status type Severe dehydration Hypercalcemia Lactic acidosis Hypernatremia Lazaro Handy MD 04/18/24 1144 documented in this [facility] Work Phone: [phone]) 767-147809-09-2024 Physician Emergency department Note* Lazaro Handy MD - 04/18/2024 8:43 AM EDTAssociated Order(s): Critical Care Chief Complaint: MENTAL STATUS ALTERATION This is a 79-year-old female who lives in a [place] who has full-time aides taking care of her. She had decreased p.o. intake starting yesterday. According to health caregiver she has been much more somnolent than normal. She is not verbal normally. She is able to only take pur ed foods in. She has had no nausea vomiting she has had no fever or chills she is a very poor historian and presents now for evaluation she is a full code according to her health caregivers. Review of Systems Constitutional: Positive for activity change, appetite change and fatigue. Negative for chills and fever. HENT: Negative for congestion and sore throat. Eyes: Negative. Respiratory: Negative for shortness of breath. Cardiovascular: Negative for chest pain and palpitations. Gastrointestinal: Negative for abdominal pain, nausea and vomiting. Genitourinary: Positive for dysuria and frequency. Musculoskeletal: Positive for myalgias. Negative for neck pain and neck stiffness. Neurological: Positive for weakness. Hematological: Negative. Psychiatric/Behavioral: Positive for confusion. Physical Exam Vitals reviewed. Constitutional: Appearance: She is obese. She is ill-appearing and toxic-appearing. Comments: Patient opens her eyes to verbal command she is not able to answer any questions appropriate however she seems very somnolent at this time HENT: Head: Normocephalic and atraumatic. Mouth/Throat: Mouth: Mucous membranes are moist. Eyes: Extraocular Movements: Extraocular movements intact. Pupils: Pupils are equal, round, and reactive to light. Cardiovascular: Rate and Rhythm: Tachycardia present. Heart sounds: Normal heart sounds. No murmur heard. Pulmonary: Effort: No tachypnea or respiratory distress. Breath sounds: Decreased breath sounds present. Abdominal: General: There is no distension. Palpations: There is no mass. Tenderness: There is no abdominal tenderness. Musculoskeletal: General: No swelling or tenderness. Cervical back: Normal range of motion and neck supple. Skin: General: Skin is warm and dry. Capillary Refill: Capillary refill takes less than 2 seconds. Findings: No rash. Comments: DECreased skin turgor Neurological: Mental Status: She is lethargic. Motor: No weakness. Psychiatric: Mood and Affect: Affect is flat. Speech: She is communicative. Behavior: Behavior is slowed. Labs Reviewed CBC WITH AUTO DIFFERENTIAL - Abnormal Result Value WBC 12.7 (*) nRBC 0.0 RBC 3.65 (*) Hemoglobin 11.7 (*) Hematocrit 39.8 MCV 109 (*) MCH 32.1 MCHC 29.4 (*) RDW 13.5 Platelets 268 Neutrophils % 65.4 Immature Granulocytes %, Automated 0.2 Lymphocytes % 23.3 Monocytes % 5.7 Eosinophils % 5.1 Basophils % 0.3 Neutrophils Absolute 8.28 (*) Immature Granulocytes Absolute, Automated 0.03 Lymphocytes Absolute 2.95 Monocytes Absolute 0.72 Eosinophils Absolute 0.64 (*) Basophils Absolute 0.04 BASIC METABOLIC PANEL - Abnormal Glucose 126 (*) Sodium 158 (*) Potassium 4.9 Chloride 111 (*) Bicarbonate 43 (*) Anion Gap 9 (*) Urea Nitrogen 145 (*) Creatinine 2.71 (*) eGFR 17 (*) Calcium 17.3 (*) MAGNESIUM - Abnormal Magnesium 2.50 (*) LACTATE - Abnormal Lactate 2.2 (*) Narrative: Venipuncture immediately after or during the administration of Metamizole may lead to falsely low results. Testing should be performed immediately prior to Metamizole dosing. URINALYSIS WITH REFLEX CULTURE AND MICROSCOPIC - Abnormal Color, Urine Yellow Appearance, Urine Turbid (*) Specific Simms, Urine 1.013 pH, Urine 7.0 Protein, Urine 10 (TRACE) Glucose, Urine Normal Blood, Urine NEGATIVE Ketones, Urine NEGATIVE Bilirubin, Urine NEGATIVE Urobilinogen, Urine Normal Nitrite, Urine 2+ (*) Leukocyte Esterase, Urine 250 Rogelio/ L (*) MICROSCOPIC ONLY, URINE - Abnormal WBC, Urine 11-20 (*) RBC, Urine 1-2 Squamous Epithelial Cells, Urine 1-9 (SPARSE) Bacteria, Urine 1+ (*) LIPASE - Normal Lipase 32 Narrative: Venipuncture immediately after or during the administration of Metamizole may lead to falsely low results. Testing should be performed immediately prior to Metamizole dosing. HEPATIC FUNCTION PANEL - Normal Albumin 3.8 Bilirubin, Total 0.2 Bilirubin, Direct 0.1 Alkaline Phosphatase 67 ALT 15 AST 15 Total Protein 6.8 TROPONIN I, HIGH SENSITIVITY - Normal Troponin I, High Sensitivity 12 Narrative: Less than 99th percentile of normal range cutoff- Female and children under 18 years old <14 ng/L; Male <21 ng/L: Negative Repeat testing should be performed if clinically indicated. Female and children under 18 years old 14-50 ng/L; Male 21-50 ng/L: Consistent with possible cardiac damage and possible increased clinical risk. Serial measurements may help to assess extent of myocardial damage. >50 ng/L: Consistent with cardiac damage, increased clinical risk and myocardial infarction. Serial measurements may help assess extent of myocardial damage. NOTE: Children less than 1 year old may have higher baseline troponin levels and results should be interpreted in conjunction with the overall clinical context. NOTE: Troponin I testing is performed using a different testing methodology at [facility] than at [facility]. Direct result comparisons should only be made within the same method. SARS-COV-2 PCR - Normal Coronavirus 2019, PCR Not Detected Narrative: This assay has received FDA Emergency Use Authorization (EUA) and is only authorized for the duration of time that circumstances exist to justify the authorization of the emergency use of in vitro diagnostic tests for the detection of SARS-CoV-2 virus and/or diagnosis of COVID-19 infection under sec tion 564(b)(1) of the Act, 21 U.S.C. 360bbb-3(b)(1). This assay is an in vitro diagnostic nucleic acid amplification test for the qualitative detection of SARS-CoV-2 from nasopharyngeal specimens andhas been validated for use at [facility]. Negative results do not preclude COVID-19 infections and should not be used as the sole basis for diagnosis, treatment, or other management decisions. INFLUENZA A AND B PCR - Normal Flu A Result Not Detected Flu B Result Not Detected Narrative: This assay is an in vitro diagnostic multiplex nucleic acid amplification test for the detection and discrimination of Influenza A & B from nasopharyngeal specimens, and has been validated for use at [facility]. Negative results do not preclude Influenza A/B infections, and should not be used as the sole basis for diagnosis, treatment, or other management decisions. IfInfluenza A/B and RSV PCR results are negative, testing for Parainfluenza virus, Adenovirus and Metapneumovirus is routinely performed for [facility] pediatric oncology and intensive care inpatients, and isavailable on other patients by placing an add-on request. URINE CULTURE BLOOD CULTURE BLOOD CULTURE URINALYSIS WITH REFLEX CULTURE AND MICROSCOPIC Narrative: The following orders were created for panel order Urinalysis with Reflex Culture and Microscopic. Procedure Abnormality Status --------- ------ Urinalysis with Reflex C...[[id number]] Abnormal Final result Extra Urine Otto Tube[[id number]] In process Please view results for these tests on the individual orders. EXTRA URINE OTTO TUBE LACTATE CT head wo IV contrast Final Result 1. No acute intracranial pathology. 2. 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 MACRO: None Signed by: Selma Moya 04/18/2024 11:31 AM Dictation workstation: [id number] XR chest 1 view Final Result 1. No evidence of acute cardiopulmonary process. MACRO: None. Signed by: Uriel Encarnacion 04/18/2024 10:03 AM Dictation workstation: [id number] Critical Care Performed by: Lazaro Handy MD Authorized by: Lazaro Handy MD Critical care provider statement: Critical care time (minutes): 42 Critical care time was exclusive of: Separately billable procedures and treating other patients andteaching time Critical care was necessary to treat or prevent imminent or life-threatening deterioration of the following conditions: Electrolyte abnormalities. Critical care was time spent personally by me on the following activities: Blood draw for specimens, development of treatment plan with patient or surrogate, discussions with primary provider, evaluation of patient's response to treatment, examination of patient, obtaining history from patient or surrogate, review of old charts, re-evaluation of patient's condition, pulse oximetry, ordering and review of radiographic studies, ordering and review of laboratory studies and ordering and performingtreatments and interventions Medical Decision Making Differential diagnose include hypoglycemia electrolyte abnormality sepsis pneumonia. Her liver function testing was normal her potassium is 4.9 sodium was elevated at 158 BUN was 145 bicarb was 43 calcium was 17.3 magnesium was 2.5 troponin was negative her COVID testing was negative influenza AMB were negative lactate was positive at 2.2 white count is 12.7 with a normal hemoglobin hematocrit she did have a slight UTI with 11-20 white cells per high-powered field CT scan shows previous bifrontal craniotomy with encephalomalacia chest x- ray was negative. Patient received 2 L normal saline total as well as Levaquin 750 mg intravenously patient will be admitted for severe dehydration hypercalc emia hypernatremia and lactic acidosis with a UTI at this time Amount and/or Complexity of Data Reviewed ECG/medicine tests: independent interpretation performed. Details: Twelve-lead EKG showed sinus tach at 104/min there are some poor R wave progression but noacute ST segment elevation or depressions Diagnoses as of 04/18/24 1144 Altered mental status, unspecified altered mental status type Severe dehydration Hypercalcemia Lactic acidosis Hypernatremia Lazaro Handy MD 04/18/24 1144 [facility] Work Phone: [phone]) 263-637808-19-2024 NotePatient ID: Mik Shelton is a 78 y.o. female 1945 Subjective: Mik Shelton presents for follow-up of Type 2 diabetes Patient has had diabetes for 5 years. Diagnosed in 2012 Ms. Shelton is a 78 y.o. female patient presents to our office with her caregiver for follow-up of type 2 diabetes. The patient has a developmental delay and lives in [place]. She is nonverbal. Her caregiver states that she has had issues with regular eating, over the last 12 months. Eating poorly, will be having palliative care come in soon. Currently taking: Metformin 500 mg once daily BG check once monthly, generally <130. Outpatient Medications Marked as Taking for the 03/28/24 encounter (Office Visit) with Kaykay Bess CNP: acetaminophen (TYLENOL) 325 MG tablet, Take 1 (one) tablet (325 mg total) by mouth every 4 (four) hours as needed . acetaminophen (TYLENOL) 650 MG suppository, Insert into the rectum. alendronate (FOSAMAX) 70 mg/75 mL solution, Take 75 mL (70 mg total) by mouth every 7 days Take in the morning with a full glass of water, on an empty stomach, and do not take anything else by mouth or lie down for the next 30 min. . ARIPiprazole (ABILIFY) 20 MG tablet, Take 0.5 (one-half) tablet (10 mg total) by mouth daily . bisacodyl (DULCOLAX) 10 mg suppository, Insert 1 (one) suppository (10 mg total) into the rectum daily as needed . calcium carbonate (OS-EMEKA) 600 mg calcium (1,500 mg) tablet, calcium-vitamin D (OS-EMEKA +D) 500 mg(1,250mg) -200 unit per tablet, take by Oral route. carBAMazepine (TEGretol) 100 mg chewable tablet, Chew and Swallow 2 (two) times a day. cyanocobalamin (B-12) 1000 MCG tablet, Take 1 (one) tablet (1,000 mcg total) by mouth daily . diazepam (VALIUM) 2 MG tablet, Take 0.5 tablet by oral route every morning and a full tablet every evening. docusate sodium (COLACE) 100 MG capsule, Take 1 (one) capsule (100 mg total) by mouth 2 (two) times a day . guaiFENesin (ROBITUSSIN) 100 mg/5 mL syrup, Take 5 mL (100 mg total) by mouth every 4 (four) hours . hydrOXYzine (ATARAX) 50 MG tablet, Take 0.5 (one-half) tablet (25 mg total) by mouth nightly . lamoTRIgine (LaMICtal) 25 MG TChD, levothyroxine (SYNTHROID, LEVOTHROID) 50 MCG tablet, Take 1 (one) tablet (50 mcg total) by mouth daily . lisinopril (PRINIVIL,ZESTRIL) 30 MG tablet, 1 (one) tablet (30 mg total) daily . lovastatin (MEVACOR) 20 MG tablet, Take 1 (one) tablet (20 mg total) by mouth nightly . melatonin 10 mg Tab, Take 10 mg by mouth daily . metFORMIN (GLUCOPHAGE) 500 MG tablet, Take 1 (one) tablet (500 mg total) by mouth daily with breakfast . multivitamin (THERAGRAN) per tablet, take 1 tablet by oral route every day with food. Weight trend: Current diet: diabetic Current exercise: no regular exercise patient is in a motorAppercode scooter 02/03 Current monitoring regimen: Monthly BG check. Any episodes of hypoglycemia? no Is patient on BRYANT inhibitor or angiotensin II receptor nena? yes BRYANT: Lisinopril Review of Systems: Review of Systems Constitutional: Negative for appetite change, fatigue and unexpected weight change. Eyes: Negative for visual disturbance. Respiratory: Negative for cough, chest tightness, shortness of breath and wheezing. Cardiovascular: Negative for chest pain, palpitations and leg swelling. Gastrointestinal: Negative for abdominal pain, constipation, diarrhea, nausea and vomiting. Endocrine: Negative for polydipsia, polyphagia and polyuria. Genitourinary: Negative for dysuria and frequency. Musculoskeletal: Negative for arthralgias, gait problem and myalgias. Neurological: Negative for weakness, numbness and headaches. Caregiver denies any current symptoms or issues. The following portions of the patient's history were reviewed and updated as appropriate: allergies, current medications, past family history, past medical history, past social history, past surgical history and problem list. Objective: BP 133/67 Pulse 78 Wt 48.8 kg (107 lb 8 oz) BMI 20.31 kg/m Weight stable at [facility] Physical Exam: General: appears stated age and cooperative patient in a motor scooter, she is nonverbal Eyes: conjunctivae/corneas clear. PERRL, EOM's intact. Neck: no adenopathy, supple, symmetrical, trachea midline. Thyroid: No thyromegaly appreciated Lung: clear to auscultation bilaterally Heart: regular rate and rhythm, S1, S2 normal, no murmur, click, rub or gallop Extremities: extremities normal, atraumatic, no cyanosis , +edema, both ankles Feet: Dry skin, No foot check was done today as the patient just recently saw Dr. Tony in his office about 1 month ago . Monofilament exam not assessed, Neuro: Limited communication., Patient is nonverbal Lab Review 03/21/24: *labs reviewed 03/28/24 Hgb A1c: 5.4% Creat: 0.79; eGFR: 76 AST: 16; ALT: 15 K: 4.3 CBC: WBC:10.1; Hgb: 11.0; Hct: 35.6; Plt: 325 Tchol: 153; Tri ; HDL: 102 ; LDL (more content not included)...[facility]08-19-2024 History of Present illness Narrative* Kaykay Bess, STORM CHASER - 03/28/2024 10:11 AM EDT Images from the original note were not included. Patient ID: Mik Shelton is a 78 y.o. female 1945 Subjective: Mik Shelton presents for follow-up of Type 2 diabetes Patient has had diabetes for 5 years. Diagnosed in 2012 Ms. Shelton is a 78 y.o. female patient presents to our office with her caregiver for follow-up of type 2 diabetes. The patient has a developmental delay and lives in a [place] [facility]. She is nonverbal. Her caregiver states that she has had issues with regular eating, over the last 12 months. Eating poorly, will be having palliative care come in soon. Currently taking: Metformin 500 mg once daily BG check once monthly, generally <130. Outpatient Medications Marked as Taking for the 03/28/24 encounter (Office Visit) with Kaykay Bess CNP: acetaminophen (TYLENOL) 325 MG tablet, Take 1 (one) tablet (325 mg total) by mouth every 4 (four) hours as needed . acetaminophen (TYLENOL) 650 MG suppository, Insert into the rectum. alendronate (FOSAMAX) 70 mg/75 mL solution, Take 75 mL (70 mg total) by mouth every 7 days Take in the morning with a full glass of water, on an empty stomach, and do not take anything else by mouth or lie down for the next 30 min. . ARIPiprazole (ABILIFY) 20 MG tablet, Take 0.5 (one-half) tablet (10 mg total) by mouth daily . bisacodyl (DULCOLAX) 10 mg suppository, Insert 1 (one) suppository (10 mg total) into the rectum daily as needed . calcium carbonate (OS-EMEKA) 600 mg calcium (1,500 mg) tablet, calcium-vitamin D (OS-EMEKA +D) 500 mg(1,250mg) -200 unit per tablet, take by Oral route. carBAMazepine (TEGretol) 100 mg chewable tablet, Chew and Swallow 2 (two) times a day. cyanocobalamin (B-12) 1000 MCG tablet, Take 1 (one) tablet (1,000 mcg total) by mouth daily . diazepam (VALIUM) 2 MG tablet, Take 0.5 tablet by oral route every morning and a full tablet every evening. docusate sodium (COLACE) 100 MG capsule, Take 1 (one) capsule (100 mg total) by mouth 2 (two) timesa day . guaiFENesin (ROBITUSSIN) 100 mg/5 mL syrup, Take 5 mL (100 mg total) by mouth every 4 (four) hours . hydrOXYzine (ATARAX) 50 MG tablet, Take 0.5 (one-half) tablet (25 mg total) by mouth nightly . lamoTRIgine (LaMICtal) 25 MG TChD, levothyroxine (SYNTHROID, LEVOTHROID) 50 MCG tablet, Take 1 (one) tablet (50 mcg total) by mouth daily . lisinopril (PRINIVIL,ZESTRIL) 30 MG tablet, 1 (one) tablet (30 mg total) daily . lovastatin (MEVACOR) 20 MG tablet, Take 1 (one) tablet (20 mg total) by mouth nightly . melatonin 10 mg Tab, Take 10 mg by mouth daily . metFORMIN (GLUCOPHAGE) 500 MG tablet, Take 1 (one) tablet (500 mg total) by mouth daily with breakfast . multivitamin (THERAGRAN) per tablet, take 1 tablet by oral route every day with food. Weight trend: Current diet: diabetic Current exercise: no regular exercise patient is in a motorAppercode scooter 02/03 Current monitoring regimen: Monthly BG check. Any episodes of hypoglycemia? no Is patient on BRYANT inhibitor or angiotensin II receptor nena? yes BRYANT: Lisinopril Review of Systems: Review of Systems Constitutional: Negative for appetite change, fatigue and unexpected weight change. Eyes: Negative for visual disturbance. Respiratory: Negative for cough, chest tightness, shortness of breath and wheezing. Cardiovascular: Negative for chest pain, palpitations and leg swelling. Gastrointestinal: Negative for abdominal pain, constipation, diarrhea, nausea and vomiting. Endocrine: Negative for polydipsia, polyphagia and polyuria. Genitourinary: Negative for dysuria and frequency. Musculoskeletal: Negative for arthralgias, gait problem and myalgias. Neurological: Negative for weakness, numbness and headaches. Caregiver denies any current symptoms or issues. The following portions of the patient's history were reviewed and updated as appropriate: allergies, current medications, past family history, past medical history, past social history, past surgicalhistory and problem list. Objective: BP 133/67 Pulse 78 Wt 48.8 kg (107 lb 8 oz) BMI 20.31 kg/m Weight stable at [facility] Physical Exam: General: appears stated age and cooperative patient in a motor scooter, she is nonverbal Eyes: conjunctivae/corneas clear. PERRL, EOM's intact. Neck: no adenopathy, supple, symmetrical, trachea midline. Thyroid: No thyromegaly appreciated Lung: clear to auscultation bilaterally Heart: regular rate and rhythm, S1, S2 normal, no murmur, click, rub or gallop Extremities: extremities normal, atraumatic, no cyanosis , +edema, both ankles Feet: Dry skin, No foot check was done today as the patient just recently saw Dr. Tony in his office about 1 month ago . Monofilament exam not assessed, Neuro: Limited communication., Patient is nonverbal Lab Review 03/21/24: *labs reviewed 03/28/24 Hgb A1c: 5.4% Creat: 0.79; eGFR: 76 AST: 16; ALT: 15 K: 4.3 CBC: WBC:10.1; Hgb: 11.0; Hct: 35.6; Plt: 325 Tchol: 153; Tri ; HDL: 102 ; LDL: 76 TSH: 1.91 12/29/23: Hgb A1c: 6% 03/05/23 Hgb A1c: 6.0% Creat: 0.53; eGFR: >90 AST: 21; ALT: 27 K: 4.3 CBC: WBC:9.5; Hgb: 12.0; Hct: 36.9; Plt: 404 TSH: 1.61 ; FreeT4: 1.19 02/26/21 Hgb A1c: 6.0% Creat: 0.69; eGFR: >60 AST: 18; ALT: 24 K: 4.7 Na: 132 CBC: WBC:10.80; Hgb: 12.7; Hct: 38.6; Plt: 328 Tchol: 184; Tri ; HDL: 68 ; LDL: 84 TSH: 1.96 ; FreeT4: 0.92 02/22/20 Hgb A1c: 6.1% Creat: 0.72; eGFR: >60 AST: 19; ALT: 26 K: 4.6 CBC: WBC:9.20; Hgb: 12.4; Hct: 37.5; Plt: 363 Tchol: 169; Tri ; HDL: 56 ; LDL: 90 TSH: 1.55 ; FreeT4: 0.84 08/05/19 Hgb A1c: 6.2% Creat: 0.60; eGFR: >60 AST: 16; ALT: 21 K: 4.4 CBC: WBC:10; Hgb: 11.7; Hct: 35.1; Plt: 364 Tchol: 161; Tri ; HDL: 73 ; LDL: 70 FreeT4: 0.91 11/16/18 Hemoglobin A1c 5.7% Creatinine 0.80, GFR greater than 60 AST 16, ALT 21 TSH 2.78, free T4 0.76 WBC 8.9, hemoglobin 10.7, hematocrit 32.1, platelets 339 Date: 04/20/18 Hgb A1c: 6.0% Creat: 0.6; eGFR: >60 AST: 34; ALT: 23 K: 4.3 Tchol: 133; Tri ; HDL: 48 ; LDL: 61 TSH: 2.53 ; FreeT4: 1.04 10/13/17 HgbA1C 5.4% TSH 1.30 Free T4 1.1 Lipid Panel Total Cholesterol 143 Triglycerides 80 HDL 65 LDL 62 Microal/creat ratio - Serum Creatinine 0.46 Hepatic Enzymes AST 17 ALT 30 Last CBC - 04/14/17 Hgb A1c: 5.5% Creat: 0.51 AST: 21; ALT: 32 K: 4.1 CBC: WBC:7.4; Hgb: 12.9; Hct: 36.9; Plt: 361 TSH: 1.20 ; FreeT4: 1.2 Assessment: Dx: No diagnosis found. Type 2 diabetes, under good control Mik Shelton presents for follow-up of Type 2 diabetes Patient is currently managed with: Metformin and humalog sliding scale (has not required in >12 months). BG reviewed; stable BG. PLAN: CPM. Retinopathy: Negative Exam within last 12 months: yes Date: 2023 Went to [facility] Nephropathy: Negative Creat: 0.79 GFR >60 02/28, on lisinopril Mialb/creat ratio: not available Peripheral Neuropathy: Negative unable to communicate sxs Autonomic Neuropathy: Unknown Patient aware of lows. Pt unable to communicate Hyperlipidemia: Positive Currently taking: lovastatin (Mevacore). LFT's WNL on 02/28 Hypertension: Positive. Currently taking: lisinopril BP: 133/67 Cardiac: Negative . Negative cardiac hx Vascular: Positive edema, mild dependent Feet: Negative sores or lesions at this time. Last foot exam: sees Dr. Tony, every 2-3 month Thyroid: Positive , on levothyroxine 50 mcg daily. TSH: 1.91 04/02 plan: Continue current management Other: Plan: 1. Rx changes: none Metformin 500 mg once daily Remain off Humalog Sliding Scale: Follow up with PCP, monitor TFT's and A1c regularly. No change from our standpoint. 2. Education: Reviewed ABCs of diabetes management (respective goals in parentheses): A1C (7.0-8.0), blood pressure (<130/80), and cholesterol (LDL <100). 3. Compliance at present is estimated to be good. Efforts to improve compliance (if necessary) willbe directed at regular blood sugar monitorin times daily. 4. Follow up: with PCP. 5. Record blood sugar readings as instructed. Call if BG consistently <70 or >250. [phone] 6. Bring blood sugar meter to follow up appointment. No orders of the defined types were placed in this encounter. Electronically Signed by: Kaykay Bess CNP 03/28/24 3:04 PM documented in this [id number] History of Present illness Narrative* Tana Yan APRN-ALEXANDRA - 03/24/2024 9:10 AM EDT Subjective Patient ID: Mik Shelton is a 78 y.o. female who presents for ER Follow-up and Hypotension. HPI Here today for ER follow up after hypotensive at the podiatry office. No acute concerns BP log from home readings are stable at 115/80's with on isolated reading of 85/50. Pt caregiver does report she is down in weight, and we will decrease dose Added Ethan to her diet daily, she is tolerating that well, but still has overall poor oral intake. Review of Systems Constitutional: Positive for appetite change. Negative for fatigue. Cardiovascular: Negative for chest pain, palpitations and leg swelling. Objective BP 110/68 (Patient Position: Sitting) Pulse 97 Physical Exam Constitutional: Appearance: Normal appearance. Cardiovascular: Rate and Rhythm: Normal rate and regular rhythm. Heart sounds: Normal heart sounds. Pulmonary: Breath sounds: Normal breath sounds. Abdominal: General: Bowel sounds are normal. Skin: Capillary Refill: Capillary refill takes less than 2 seconds. Neurological: Mental Status: She is alert. Mental status is at baseline. Assessment/Plan Problem List Items Addressed This Visit ICD-10-CM Primary hypertension - Primary I10 Relevant Medications lisinopril 20 mg tablet Other Visit Diagnoses Codes Other fatigue R53.83 Relevant Orders Vitamin B12 Hypotension -Decrease lisinopril to 20mg daily -Keep daily BP logs Printed the palliative care referral and provided them with numbers to call documented in this [facility] Work Phone: 1(155) 193-306408-09-2024 NoteHPI Chief Complaint Patient presents with Nail Care Patient presents for diabetic nail care. Last A1C 6.[address] to look at patient's left great toenail. Caregiver not sure if patient had injury to nail. Patient is a pleasant 78-year-old female who comes in today with her roustabout for a diabetic foot exam and see if she can get her nails cut. Her nails cut at home recently from a doctor however he has since retired. Geriatric care is managed by primary including Dr. Mobley. Past Medical History: Diagnosis Date Cerebral palsy (HCC) Hypothyroidism Osteoporosis Seizure disorder (HCC) 2017 Type 2 diabetes mellitus (HCC) Past Surgical History: Procedure Laterality Date CT COLONOSCOPY 10/05/2023 CT COLONOSCOPY Social History Socioeconomic History Marital status: Single Tobacco Use Smoking status: Never Smokeless tobacco: Never Substance and Sexual Activity Alcohol use: No Drug use: No Review of Systems -Patient is essentially noncommunicative and therefore denied Physical Exam -Vascular: DP pulses are palpable 2-4. PT pulses are essentially nonpalpable. CFT is delayed with mild foot and ankle edema. Derm: Skin is shiny atrophic and dysvascular. No open ulcers no erythema no rashes noted nodules. Neuro: Light touch is blunted Babinski's is normal. Musculoskeletal: Muscle strength is 2 out of 5 with okay tone. Ankle subtalar midtarsal is full and pain-free. Nails left 11526 and right foot 14723 are elongated and dystrophic. 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 -She does qualify for high risk nail care. Procedure: After timeout consent was performed, sharply debrided and debulked in height and length 10 onychodystrophy nails with a sharp cranial nippers consistent with a q8 modifier. Patient is a noncommunicative so very hard to let her know and septicemia know what perhaps is bothering her. In light of her hypotension and tachycardia, did ask that they be evaluated by the emergency department to get labs and workup for infection/septicemia. Additionally, states that they did just get their blood pressure medication adjusted and not sure if this is causation. Follow-up in 3 months or 6 months for foot nail care. AUTHENTICATED BY SOTO TONY JR., ON 03/18/2024 11:05:02[facility]08-09-2024 History of Present illness Narrative* Soto Tony Jr., [facility] [employer] [facility] [employer] [facility] - 03/18/2024 11:03 AM EDT HPI Chief Complaint Patient presents with Nail Care Patient presents for diabetic nail care. Last A1C 6.[address] to look at patient's left great toenail. Caregiver not sure if patient had injury to nail. Patient is a pleasant 78-year-old female who comes in today with her roustabout for a diabetic foot exam and see if she can get her nails cut. Her nails cut at home recently from a doctor however he has since retired. Geriatric care is managed by primary including Dr. Mobley. Past Medical History: Diagnosis Date Cerebral palsy (HCC) Hypothyroidism Osteoporosis Seizure disorder (HCC) 2017 Type 2 diabetes mellitus (HCC) Past Surgical History: Procedure Laterality Date CT COLONOSCOPY 10/05/2023 CT COLONOSCOPY Social History Socioeconomic History Marital status: Single Tobacco Use Smoking status: Never Smokeless tobacco: Never Substance and Sexual Activity Alcohol use: No Drug use: No Review of Systems -Patient is essentially noncommunicative and therefore denied Physical Exam -Vascular: DP pulses are palpable 2-4. PT pulses are essentially nonpalpable. CFT is delayed with mild foot and ankle edema. Derm: Skin is shiny atrophic and dysvascular. No open ulcers no erythema no rashes noted nodules. Neuro: Light touch is blunted Babinski's is normal. Musculoskeletal: Muscle strength is 2 out of 5 with okay tone. Ankle subtalar midtarsal is full andpain-free. Nails left 65620 and right foot 11273 are elongated and dystrophic. 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 -She does qualify for high risk nail care. Procedure: After timeout consent was performed, sharply debrided and debulked in height and length 10 onychodystrophy nails with a sharp cranial nippers consistent with a q8 modifier. Patient is a noncommunicative so very hard to let her know and septicemia know what perhaps is bothering her. In light of her hypotension and tachycardia, did ask that they be evaluated by the emergency department to get labs and workup for infection/septicemia. Additionally, states that they did just get their blood pressure medication adjusted and not sure if this is causation. Follow-up in 3 months or 6 months for foot nail care. documented in this [id number] History of Present illness Narrative* JOHN Avitia - 01/26/2024 10:10 AM EDT Subjective Patient ID: Mik Shelton is a 78 y.o. female who presents for Thrush and dehydrated. HPI Here today for thrush concerns, will refill nystatin. On exam the tongue does look thrush like. She also takes benecal on days where she does not eat a full meal. This is very thick and could also be causing the thick layer on her tongue. Encouraged nystatin and increase fluid intake with wateror sugar free Gatorade. With the decline in PO intake, nurses at [facility] are concerned that she may be slowly declining.I did talk to them about that possibility and to keep us updated if they feel this is worsening. Review of Systems HENT: [place] Objective BP 88/52 (Patient Position: Sitting) Pulse 95 Physical Exam Constitutional: General: She is not in acute distress. HENT: Mouth/Throat: Comments: thrush Cardiovascular: Rate and Rhythm: Normal rate and regular rhythm. Heart sounds: Normal heart sounds. Pulmonary: Effort: Pulmonary effort is normal. Neurological: Mental Status: She is alert. Assessment/Plan Problem List Items Addressed This Visit None Visit Diagnoses Codes Thrush - Primary B37.0 Relevant Medications nystatin (Mycostatin) 100,000 unit/mL suspension documented in this [facility] Work Phone: 1([phone]) 696-459805-10-2024 History of Present illness Narrative* Soto Tony Jr., CURTIS - 12/18/2023 10:20 AM EDT HPI Chief Complaint Patient presents with Nail Care Last A1C unknown Patient is a pleasant 77-year-old female who comes in today with her roustabout for a diabetic foot exam and see if she can get her nails cut. Her nails cut at home recently from a doctor however he has since retired. Geriatric care is managed by primary including Dr. Mobley. Past Medical History: Diagnosis Date Cerebral palsy (HCC) Hypothyroidism Osteoporosis Seizure disorder (HCC) 2017 Type 2 diabetes mellitus (HCC) Past Surgical History: Procedure Laterality Date CT COLONOSCOPY 10/05/2023 CT COLONOSCOPY Social History Socioeconomic History Marital status: Single Tobacco Use Smoking status: Never Smokeless tobacco: Never Substance and Sexual Activity Alcohol use: No Drug use: No Review of Systems -Patient is essentially noncommunicative and therefore denied Physical Exam -Vascular: DP pulses are palpable 2-4. PT pulses are essentially nonpalpable. CFT is delayed with mild foot and ankle edema. Derm: Skin is shiny atrophic and dysvascular. No open ulcers no erythema no rashes noted nodules. Neuro: Light touch is blunted Babinski's is normal. Musculoskeletal: Muscle strength is 2 out of 5 with okay tone. Ankle subtalar midtarsal is full andpain-free. Nails left 31190 and right foot 88541 are elongated and dystrophic. Impression/Plan Problem List Items Addressed This Visit None Visit Diagnoses Onychodystrophy - Primary Peripheral vascular disease, unspecified (HCC) Patient is a pleasant 77 female with diabetes is, early arterial disease and onychodystrophy to 10 nails. -She does qualify for high risk nail care. Procedure: After timeout consent was performed, sharply debrided and debulked in height and length 10 onychodystrophy nails with a sharp cranial nippers consistent with a q8 modifier. Follow-up in 3 months or 6 months for foot nail care. documented in this [id number] History of Present illness Narrative* Shanda Huizar, - 12/09/2023 2:00 PM EDT Subjective Patient ID: Mik Shelton is a 78 y.o. female who presents for Weight Loss (Concerns with 8-9 pound weight loss in the last 3 months). HPI Pt is here today with [facility] staff with concerns for weight loss. She has lost 8-9 lbs over the last few months. She is a picky eater, she wont take something else if she does not like what they are offering. Review of Systems Constitutional: Negative for activity change, appetite change, chills and fatigue. HENT: Negative for congestion, postnasal drip, sinus pressure, sinus pain and sore throat. Respiratory: Negative for cough, shortness of breath and wheezing. Cardiovascular: Negative for chest pain and leg swelling. Gastrointestinal: Negative for abdominal distention, diarrhea, nausea and vomiting. Musculoskeletal: Negative for back pain. Neurological: Negative for weakness and numbness. Objective BP 130/74 Pulse 88 Ht 1.397 m (4' 7) Wt 49.7 kg (109 lb 8 oz) BMI 25.45 kg/m Physical Exam Constitutional: General: She is not in acute distress. Appearance: Normal appearance. Comments: In wheelchair HENT: Head: Normocephalic. Nose: Nose normal. Mouth/Throat: Pharynx: No oropharyngeal exudate. Eyes: General: Right eye: No discharge. Left eye: No discharge. Extraocular Movements: Extraocular movements intact. Pupils: Pupils are equal, round, and reactive to light. Cardiovascular: Rate and Rhythm: Normal rate and regular rhythm. Heart sounds: No murmur heard. No gallop. Pulmonary: Effort: Pulmonary effort is normal. No respiratory distress. Breath sounds: Normal breath sounds. No wheezing. Abdominal: General: Bowel sounds are normal. There is no distension. Palpations: Abdomen is soft. Tenderness: There is no abdominal tenderness. Musculoskeletal: General: No swelling. Normal range of motion. Skin: General: Skin is warm and dry. Coloration: Skin is not jaundiced. Neurological: Mental Status: She is alert. Cranial Nerves: No cranial nerve deficit. Comments: Significant muscle atrophy of viviana lower extremities and upper arms, contractures of hands Psychiatric: Mood and Affect: Mood normal. Behavior: Behavior normal. Assessment/Plan Problem List Items Addressed This Visit Controlled diabetes mellitus type II without complication (Multi) Relevant Orders Hemoglobin A1C Diabetic autonomic neuropathy associated with type 2 diabetes mellitus (Multi) - Primary Unintentional weight loss - 8-9 lbs over last few months - is a picky eater and will sometimes jut choose not to eat - does have a supplement that she can be offered if she does not eat but she often will not take it. - does not seem to cough and gag like she has trouble eating - at this point I would rather she eat whatever they can get her to eat and we can adjust her DMII meds accordingly, try and add protein powder or supplement drink tid, can add protein powder to other things like richardson cakes or muffins or whatever she will eat - she does not seem to have trouble swallowing, no cough and gagging does not seem to have abd painor discomfort after eating - recheck weight in 3 mo with A1c Final diagnoses: [E11.43] Diabetic autonomic neuropathy associated with type 2 diabetes mellitus (Multi) [E11.9, Z79.4] Controlled type 2 diabetes mellitus without complication, with long-term current useof insulin (Multi) [facility]: [phone]) 718-182704-10-2024 Instructions* Patient Instructions* Boni Salter II, OD - 11/18/2023 11:15 AM EDT Assessment and Plan E11.9 Type 2 diabetes mellitus without retinopathy (HCC) (primary encounter diagnosis) Comment: Examination shows no ocular diabetic complications today. Continue yearly dilated eye examinations. 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 Slow progression. Continue observation. H50.111 Exotropia of right eye Comment: Longstanding and stable. Monitor. H52.13 Myopia of both eyes H52.4 Presbyopia Comment: Stable glasses power. Glasses improve distance clarity. I have confirmed and edited as necessary the relevant HPI, ophthalmic history, ROS, and the neuro exam findings as obtained by others. I have seen and examined Mik Shelton. I have discussed the case and the management of this patient's care with the Resident/Fellow, if applicable. I also have reviewed and agree with the assessment and plan as stated above and agree withall of its relevant components. [facility] History of Present illness Narrative* Boni Salter II, OD - 11/18/2023 11:14 AM EDT Assessment and Plan E11.9 Type 2 diabetes mellitus without retinopathy (HCC) (primary encounter diagnosis) Comment: Examination shows no ocular diabetic complications today. Continue yearly dilated eye examinations. 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 Slow progression. Continue observation. H50.111 Exotropia of right eye Comment: Longstanding and stable. Monitor. H52.13 Myopia of both eyes H52.4 Presbyopia Comment: Stable glasses power. Glasses improve distance clarity. I have confirmed and edited as necessary the relevant HPI, ophthalmic history, ROS, and the neuro exam findings as obtained by others. I have seen and examined Mik Shelton. I have discussed the case and the management of this patient's care with the Resident/Fellow, if applicable. I also have reviewed and agree with the assessment and plan as stated above and agree withall of its relevant components. [facility] Hospital Discharge instructions* Discharge Instructions* Helena Redd RN - 10/05/2023 12:30 PM EST Patient Instructions after a Colonoscopy The anesthetics, sedatives or narcotics which were given to you today will be acting in your body for the next 24 hours, so you might feel a little sleepy or groggy. This feeling should slowly wear off. Carefully read and follow the instructions. You received sedation today: - Do not drive or operate any machinery or power tools of any kind. - No alcoholic beverages today, not even beer or wine. - Do not make any important decisions or sign any legal documents. - No over the counter medications that contain alcohol or that may cause drowsiness. - Do not make any important decisions or sign any legal documents. While it is common to experience mild to moderate abdominal distention, gas, or belching after yourprocedure, if any of these symptoms occur following discharge from the GI Lab or within one week ofhaving your procedure, call the [facility] to be advised whether a visit to your nearest Urgent Care or Emergency Department is indicated. Take this paper with you if you go. - If you develop an allergic reaction to the medications that were given during your procedure suchas difficulty breathing, rash, hives, severe nausea, vomiting or lightheadedness. - If you experience chest pain, shortness of breath, severe abdominal pain, fevers and chills. -If you develop signs and symptoms of bleeding such as blood in your spit, if your stools turn black, tarry, or bloody - If you have not urinated within 8 hours following your procedure. - If your IV site becomes painful, red, inflamed, or looks infected. Your physician recommends the additional following instructions: -You have a contact number available for emergencies. The signs and symptoms of potential delayed complications were discussed with you. You may return to normal activities tomorrow. -Resume your previous diet. -Continue your present medications. -We are waiting for your pathology results. -Your physician has recommended a repeat colonoscopy (date to be determined after pending pathologyresults are reviewed) for surveillance based on pathology results. -The findings and recommendations have been discussed with you. -The findings and recommendations were discussed with your family. - Please see Medication Reconciliation Form for new medication/medications prescribed. If you experience any problems or have any questions following discharge from the GI Lab, please call: Nurse Signature Date Patient/Responsible [employer] Signature Date documented in this [facility] Work Phone: [phone]) [phone] History and physical note* Clara Jones, - 10/05/2023 7:30 AM EST History Of Present Illness Mik Shelton is a 78 y.o. female presents for colonoscopy for positive occult stool with gross rectal bleeding. We discussed nature of procedure including risk benefits and alternatives with her adult protectiveservice advised her by telephone, and Diego Moseley. All information was conveyed to him and consent was obtained. Dr. Saeed was in attendance for conversation. Past Medical History Past Medical History: Diagnosis Date Cerebral palsy (CMS/HCC) Diabetes mellitus (CMS/HCC) Hypothyroidism Psychiatric disorder Seizures (CMS/HCC) Surgical History No past surgical history on file. Social History She reports that she has never smoked. She has never used smokeless tobacco. She reports that she does not currently use alcohol. She reports that she does not use drugs. Family History Family History Family history unknown: Yes Allergies Allergies Allergen Reactions Amoxicillin Unknown Ampicillin Unknown Penicillin Unknown Review of Systems Unable to perform ROS: Other All other systems reviewed and are negative. Pre-sedation Evaluation: ASA Classification - ASA 3 - Patient with moderate systemic disease with functional limitations Mallampati Score - II (hard and soft palate, upper portion of tonsils anduvula visible) Physical Exam Vitals and nursing note reviewed. Constitutional: Appearance: Normal appearance. Comments: Typical appearance of Down syndrome HENT: Head: Normocephalic. Mouth/Throat: Mouth: Mucous membranes are moist. Pharynx: Oropharynx is clear. Eyes: Conjunctiva/sclera: Conjunctivae normal. Pupils: Pupils are equal, round, and reactive to light. Cardiovascular: Pulses: Normal pulses. Heart sounds: Normal heart sounds. Pulmonary: Effort: Pulmonary effort is normal. Breath sounds: Normal breath sounds. Abdominal: General: Abdomen is flat. Bowel sounds are normal. Palpations: Abdomen is soft. Musculoskeletal: Cervical back: Normal range of motion and neck supple. Skin: General: Skin is warm and dry. Neurological: General: No focal deficit present. Mental Status: She is alert and oriented to person, place, and time. Psychiatric: Behavior: Behavior normal. Last Recorded Vitals There were no vitals taken for this visit. 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 acetaminophen (Tylenol) 650 mg suppository Insert 1 suppository (650 mg) into the rectum every 4 hours if needed for fever (temp greater than 38.0 C) or moderate pain (4 - 6). alendronate (Fosamax) 70 mg tablet Take 1 tablet (70 mg) by mouth every 7 days. ARIPiprazole (Abilify) 10 mg tablet Take 1 tablet (10 mg) by mouth once daily. bisacodyl (Dulcolax) 10 mg suppository Insert 1 suppository (10 mg) into the rectum 1 time. calcium carbonate-vitamin D3 600 mg-10 mcg (400 unit) tablet Take 1 tablet by mouth 2 times a day. carBAMazepine (TEGretol) 100 mg chewable tablet Chew 1 tablet (100 mg) every 12 hours. cholecalciferol (Vitamin D-3) 50,000 unit capsule Take 1 capsule (50,000 Units) by mouth 1 (one) time per week. cyanocobalamin (Vitamin B-12) 1,000 mcg tablet Take 1 tablet (1,000 mcg) by mouth once daily. Daily-Catarina, with folic acid, 400 mcg tablet diazePAM (Valium) 2 mg tablet Take 0.5 tablets (1 mg) by mouth once daily with a meal. docusate sodium (Colace) 100 mg capsule Take 1 capsule (100 mg) by mouth once daily. guaiFENesin (Robitussin) 100 mg/5 mL syrup Take 10 mL by mouth every 4 hours. hydrOXYzine HCL (Atarax) 25 mg tablet Take 1 tablet (25 mg) by mouth 4 times a day. iron-folic acid-mv, min cmb#15 (Centratex) 106 mg iron- 1 mg capsule Take by mouth once every 24 hours. lamoTRIgine (LaMICtal) 25 mg tablet Take 2 tablets (50 mg) by mouth 2 times a day. levothyroxine (Synthroid, Levoxyl) 50 mcg tablet Take 1 tablet (50 mcg) by mouth once daily. 90 tablet 3 lisinopril 30 mg tablet TAKE 1 TABLET BY MOUTH ONCE DAILY FOR BLOOD PRESSURE NE WPCP 30 tablet 4 lovastatin (Mevacor) 20 mg tablet GIVE 1 TABLET BY MOUTH EVERY EVENING DX: CHOLESTEROL NEW PCP 30 tablet 4 metFORMIN XR 500 mg 24 hr tablet Take 1 tablet (500 mg) by mouth once daily. Current Facility-Administered Medications Medication Dose Route Frequency Provider Last Rate Last Admin magnesium citrate solution 296 mL 296 mL oral Once DO Clara Morejon DO [facility] Work Phone: [phone] History and physical note* Clara Jones DO - 10/05/2023 7:30 AM EST History Of Present Illness Mik Shelton is a 78 y.o. female presents for colonoscopy for positive occult stool with gross rectal bleeding. We discussed nature of procedure including risk benefits and alternatives with her adult protectiveservice advised her by telephone, and Diego Moseley. All information was conveyed to him and consent was obtained. Dr. Saeed was in attendance for conversation. Past Medical History Past Medical History: Diagnosis Date Cerebral palsy ([facility]) Diabetes mellitus ([facility]/HCC) Hypothyroidism Psychiatric disorder Seizures ([facility]) Surgical History No past surgical history on file. Social History She reports that she has never smoked. She has never used smokeless tobacco. She reports that she does not currently use alcohol. She reports that she does not use drugs. Family History Family History Family history unknown: Yes Allergies Allergies Allergen Reactions Amoxicillin Unknown Ampicillin Unknown Penicillin Unknown Review of Systems Unable to perform ROS: Other All other systems reviewed and are negative. Pre-sedation Evaluation: ASA Classification - ASA 3 - Patient with moderate systemic disease with functional limitations Mallampati Score - II (hard and soft palate, upper portion of tonsils anduvula visible) Physical Exam Vitals and nursing note reviewed. Constitutional: Appearance: Normal appearance. Comments: Typical appearance of Down syndrome HENT: Head: Normocephalic. Mouth/Throat: Mouth: Mucous membranes are moist. Pharynx: Oropharynx is clear. Eyes: Conjunctiva/sclera: Conjunctivae normal. Pupils: Pupils are equal, round, and reactive to light. Cardiovascular: Pulses: Normal pulses. Heart sounds: Normal heart sounds. Pulmonary: Effort: Pulmonary effort is normal. Breath sounds: Normal breath sounds. Abdominal: General: Abdomen is flat. Bowel sounds are normal. Palpations: Abdomen is soft. Musculoskeletal: Cervical back: Normal range of motion and neck supple. Skin: General: Skin is warm and dry. Neurological: General: No focal deficit present. Mental Status: She is alert and oriented to person, place, and time. Psychiatric: Behavior: Behavior normal. Last Recorded Vitals There were no vitals taken for this visit. 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 acetaminophen (Tylenol) 650 mg suppository Insert 1 suppository (650 mg) into the rectum every 4 hours if needed for fever (temp greater than 38.0 C) or moderate pain (4 - 6). alendronate (Fosamax) 70 mg tablet Take 1 tablet (70 mg) by mouth every 7 days. ARIPiprazole (Abilify) 10 mg tablet Take 1 tablet (10 mg) by mouth once daily. bisacodyl (Dulcolax) 10 mg suppository Insert 1 suppository (10 mg) into the rectum 1 time. calcium carbonate-vitamin D3 600 mg-10 mcg (400 unit) tablet Take 1 tablet by mouth 2 times a day. carBAMazepine (TEGretol) 100 mg chewable tablet Chew 1 tablet (100 mg) every 12 hours. cholecalciferol (Vitamin D-3) 50,000 unit capsule Take 1 capsule (50,000 Units) by mouth 1 (one) time per week. cyanocobalamin (Vitamin B-12) 1,000 mcg tablet Take 1 tablet (1,000 mcg) by mouth once daily. Daily-Catarina, with folic acid, 400 mcg tablet diazePAM (Valium) 2 mg tablet Take 0.5 tablets (1 mg) by mouth once daily with a meal. docusate sodium (Colace) 100 mg capsule Take 1 capsule (100 mg) by mouth once daily. guaiFENesin (Robitussin) 100 mg/5 mL syrup Take 10 mL by mouth every 4 hours. hydrOXYzine HCL (Atarax) 25 mg tablet Take 1 tablet (25 mg) by mouth 4 times a day. iron-folic acid-mv, min cmb#15 (Centratex) 106 mg iron- 1 mg capsule Take by mouth once every 24 hours. lamoTRIgine (LaMICtal) 25 mg tablet Take 2 tablets (50 mg) by mouth 2 times a day. levothyroxine (Synthroid, Levoxyl) 50 mcg tablet Take 1 tablet (50 mcg) by mouth once daily. 90 tablet 3 lisinopril 30 mg tablet TAKE 1 TABLET BY MOUTH ONCE DAILY FOR BLOOD PRESSURE NE WPCP 30 tablet 4 lovastatin (Mevacor) 20 mg tablet GIVE 1 TABLET BY MOUTH EVERY EVENING DX: CHOLESTEROL NEW PCP 30 tablet 4 metFORMIN XR 500 mg 24 hr tablet Take 1 tablet (500 mg) by mouth once daily. Current Facility-Administered Medications Medication Dose Route Frequency Provider Last Rate Last Admin magnesium citrate solution 296 mL 296 mL oral Once DO Clara Morejon DO documented in this [facility] Work Phone: [phone] History of Present illness Narrative* Soto Tony Jr., DPM - 09/16/2023 10:06 AM EST HPI Chief Complaint Patient presents with Nail Care Patient is a pleasant 77-year-old female who comes in today with her roustabout for a diabetic foot exam and see if she can get her nails cut. Her nails cut at home recently from a doctor however he has since retired. Geriatric care is managed by primary including Dr. Mobley. Past Medical History: Diagnosis Date Cerebral palsy (HCC) Hypothyroidism Osteoporosis Seizure disorder (HCC) 2017 Type 2 diabetes mellitus (HCC) History reviewed. No pertinent surgical history. Social History Socioeconomic History Marital status: Single Tobacco Use Smoking status: Never Smokeless tobacco: Never Substance and Sexual Activity Alcohol use: No Drug use: No Review of Systems -Patient is essentially noncommunicative and therefore denied Physical Exam -Vascular: DP pulses are palpable 2-4. PT pulses are essentially nonpalpable. CFT is delayed with mild foot and ankle edema. Derm: Skin is shiny atrophic and dysvascular. No open ulcers no erythema no rashes noted nodules. Neuro: Light touch is blunted Babinski's is normal. Musculoskeletal: Muscle strength is 2 out of 5 with okay tone. Ankle subtalar midtarsal is full andpain-free. Nails left 18392 and right foot 47328 are elongated and dystrophic. Impression/Plan Problem List Items Addressed This Visit None Visit Diagnoses Peripheral vascular disease, unspecified (HCC) - Primary Onychodystrophy Patient is a pleasant 77 female with diabetes is, early arterial disease and onychodystrophy to 10 nails. -She does qualify for high risk nail care. Procedure: After timeout consent was performed, sharply debrided and debulked in height and length 10 onychodystrophy nails with a sharp cranial nippers consistent with a q8 modifier. Follow-up in 3 months or 6 months for foot nail care. documented in this [id number] History of Present illness Narrative* Shanda Huizar, - 07/16/2023 10:20 AM EST Subjective Patient ID: Mik Shelton is a 78 y.o. 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 HPI Patient is a 78 y.o. female patient who is here today to establish care with [place] [facility] staff member. Pt has a pmhx of infantile cerebral palsy, hypothyroidism, mood disorder, Type 2 DM, profound intellectual disabilities. Review of Systems Unable to do ROS due to pts non verbal status. Objective BP 133/72 Pulse 80 Physical Exam Constitutional: General: She is not in acute distress. Appearance: Normal appearance. HENT: Head: Normocephalic. Nose: Nose normal. Mouth/Throat: Mouth: Mucous membranes are dry. Pharynx: No oropharyngeal exudate. Eyes: General: Right eye: No discharge. Left eye: No discharge. Extraocular Movements: Extraocular movements intact. Pupils: Pupils are equal, round, and reactive to light. Cardiovascular: Rate and Rhythm: Normal rate and regular rhythm. Heart sounds: No murmur heard. No gallop. Pulmonary: Effort: Pulmonary effort is normal. No respiratory distress. Breath sounds: Normal breath sounds. No wheezing. Musculoskeletal: General: No swelling. Normal range of motion. Comments: Significant muscle atrophy of viviana lower extremities and upper arms, contractures of hands Skin: General: Skin is warm and dry. Coloration: Skin is not jaundiced. Neurological: Mental Status: She is alert. Cranial Nerves: No cranial nerve deficit. Psychiatric: Mood and Affect: Mood normal. Behavior: Behavior normal. Mammo 23 Pap Colonoscopy Flu shot 2022 COVId received PNA received Shingles RSV recommended Assessment/Plan Problem List Items Addressed This Visit Controlled diabetes mellitus type II without complication (CMS/HCC) Diabetic autonomic neuropathy associated with type 2 diabetes mellitus (CMS/HCC) Hypothyroid - Primary Relevant Medications levothyroxine (Tirosint) 50 mcg capsule Intellectual functioning disability Primary hypertension Mixed hyperlipidemia DMII - follows with Valentín bess - on metformin 500mg daily - humalog sliding scale if blood sugar > 250 - last A1c 6.0% 2. Hypothyroidism - follows with endo - on synthroid 3. Mood disorder - continue abilify 10mg po daily 4. CP, questionable seizure activity - follows with neurology, Dr Alejo - on carbamazepine 100mg po bid - continue lamotrigine 25mg po bid 5. HTN - continue lisinopril 30mg po daily 6. HLD - continue statin Final diagnoses: [E03.9] Hypothyroidism, unspecified type [E11.43] Diabetic autonomic neuropathy associated with type 2 diabetes mellitus (CMS/HCC) [E11.9, Z79.4] Controlled type 2 diabetes mellitus without complication, with long-term current useof insulin (CMS/HCC) [F79] Intellectual functioning disability [I10] Primary hypertension [E78.2] Mixed hyperlipidemia documented in this [facility] Work Phone: [phone]) 452-637211-03-2023 History of Present illness Narrative* Soto Tony Jr., DPM - 06/12/2023 10:32 AM EDT HPI Chief Complaint Patient presents with Nail Care Nail care. Patient is a pleasant 77-year-old female who comes in today with her roustabout for a diabetic foot exam and see if she can get her nails cut. Her nails cut at home recently from a doctor however he has since retired. Geriatric care is managed by primary including Dr. Mobley. Past Medical History: Diagnosis Date Cerebral palsy (HCC) Hypothyroidism Osteoporosis Seizure disorder (HCC) 2017 Type 2 diabetes mellitus (HCC) History reviewed. No pertinent surgical history. Social History Socioeconomic History Marital status: Single Tobacco Use Smoking status: Never Smokeless tobacco: Never Substance and Sexual Activity Alcohol use: No Drug use: No Review of Systems -Patient is essentially noncommunicative and therefore denied Physical Exam -Vascular: DP pulses are palpable 2-4. PT pulses are essentially nonpalpable. CFT is delayed with mild foot and ankle edema. Derm: Skin is shiny atrophic and dysvascular. No open ulcers no erythema no rashes noted nodules. Neuro: Light touch is blunted Babinski's is normal. Musculoskeletal: Muscle strength is 2 out of 5 with okay tone. Ankle subtalar midtarsal is full andpain-free. Nails left 46596 and right foot 45713 are elongated and dystrophic. Impression/Plan Problem List Items Addressed This Visit None Visit Diagnoses Onychodystrophy - Primary Peripheral vascular disease, unspecified (HCC) Patient is a pleasant 77 female with diabetes is, early arterial disease and onychodystrophy to 10 nails. -She does qualify for high risk nail care. Procedure: After timeout consent was performed, sharply debrided and debulked in height and length 10 onychodystrophy nails with a sharp cranial nippers consistent with a q8 modifier. Follow-up in 3 months or 6 months for foot nail care. documented in this [id number] History of Present illness Narrative* Kaykay Bess CNP - 03/23/2023 10:08 AM EDT Images from the original note were not included. Patient ID: Mik Shelton is a 77 y.o. female 1945 Subjective: Mik Shelton presents for follow-up of Type 2 diabetes Patient has had diabetes for 5 years. Diagnosed in 2012 Ms. Shelton is a 76-year-old female patient presents to our office with her caregiver for follow-up of type 2 diabetes. The patient has a developmental delay and lives in a [place] [facility]. She is nonverbal. Her caregiver states that she has not had any issues since her last visit with us about 12 months ago. Currently taking: Metformin 500 mg once daily Humalog insulin sliding scale >250. Hold if BG <80 or patient does not eat the majority of her meal. Humalog Sliding Scale: If blood sugar 250-300 give 1 extra unit humalog SQ at breakfast and dinner If blood sugar > 300 give 2 extra units at breakfast and dinner Outpatient Medications Marked as Taking for the 03/23/23 encounter (Office Visit) with Kaykay Bess CNP: acetaminophen (TYLENOL) 325 MG tablet, Take 1 (one) tablet (325 mg total) by mouth every 4 (four) hours as needed . acetaminophen (TYLENOL) 650 MG suppository, Insert into the rectum. alendronate (FOSAMAX) 70 mg/75 mL solution, Take 75 mL (70 mg total) by mouth every 7 days Take in the morning with a full glass of water, on an empty stomach, and do not take anything else by mouth or lie down for the next 30 min. . ARIPiprazole (ABILIFY) 20 MG tablet, Take 0.5 (one-half) tablet (10 mg total) by mouth daily . bisacodyl (DULCOLAX) 10 mg suppository, Insert 1 (one) suppository (10 mg total) into the rectum daily as needed . calcium carbonate (OS-EMEKA) 600 mg calcium (1,500 mg) tablet, calcium-vitamin D (OS-EMEKA +D) 500 mg(1,250mg) -200 unit per tablet, take by Oral route. carBAMazepine (TEGretol) 100 mg chewable tablet, Chew and Swallow 2 (two) times a day. cholecalciferol, vitamin D3, 1,000 unit tablet, Take 1 (one) tablet (1,000 Units total) by mouth daily . cyanocobalamin (B-12) 1000 MCG tablet, Take 1 (one) tablet (1,000 mcg total) by mouth daily . diazepam (VALIUM) 2 MG tablet, Take 0.5 tablet by oral route every morning and a full tablet every evening. docusate sodium (COLACE) 100 MG capsule, Take 1 (one) capsule (100 mg total) by mouth 2 (two) timesa day . guaiFENesin (ROBITUSSIN) 100 mg/5 mL syrup, Take 5 mL (100 mg total) by mouth every 4 (four) hours . hydrOXYzine (ATARAX) 50 MG tablet, Take 0.5 (one-half) tablet (25 mg total) by mouth nightly . insulin lispro (HumaLOG) 100 unit/mL injection, Use as directed, approx 10 units per day. (Patient taking differently: Use as directed, approx 10 units per day 2 units at breakfast and dinner .) levothyroxine (SYNTHROID, LEVOTHROID) 50 MCG tablet, Take 1 (one) tablet (50 mcg total) by mouth daily . lisinopril (PRINIVIL,ZESTRIL) 30 MG tablet, 1 (one) tablet (30 mg total) daily . lovastatin (MEVACOR) 20 MG tablet, Take 1 (one) tablet (20 mg total) by mouth nightly . metFORMIN (GLUCOPHAGE) 500 MG tablet, Take 1 (one) tablet (500 mg total) by mouth daily with breakfast . multivitamin (THERAGRAN) per tablet, take 1 tablet by oral route every day with food. Weight trend: Current diet: diabetic Current exercise: no regular exercise patient is in a motorized scooter 02/03 Current monitoring regimen: home blood tests - 3 times daily Home blood sugar records: FBG 70-135, Pre-dinner 90-154, HS 96-145, 238 Any episodes of hypoglycemia? no Is patient on BRYANT inhibitor or angiotensin II receptor nena? yes BRYANT: Lisinopril Review of Systems: Review of Systems Constitutional: Negative for appetite change, fatigue and unexpected weight change. Eyes: Negative for visual disturbance. Respiratory: Negative for cough, chest tightness, shortness of breath and wheezing. Cardiovascular: Negative for chest pain, palpitations and leg swelling. Gastrointestinal: Negative for abdominal pain, constipation, diarrhea, nausea and vomiting. Endocrine: Negative for polydipsia, polyphagia and polyuria. Genitourinary: Negative for dysuria and frequency. Musculoskeletal: Negative for arthralgias, gait problem and myalgias. Neurological: Negative for weakness, numbness and headaches. Caregiver denies any current symptoms or issues. The following portions of the patient's history were reviewed and updated as appropriate: allergies, current medications, past family history, past medical history, past social history, past surgicalhistory and problem list. Objective: BP (!) 148/78 Pulse 90 Weight stable at F Physical Exam: General: appears stated age and cooperative patient in a motor scooter, she is nonverbal Eyes: conjunctivae/corneas clear. PERRL, EOM's intact. Neck: no adenopathy, supple, symmetrical, trachea midline. Thyroid: No thyromegaly appreciated Lung: clear to auscultation bilaterally Heart: regular rate and rhythm, S1, S2 normal, no murmur, click, rub or gallop Extremities: extremities normal, atraumatic, no cyanosis , +edema, both ankles Feet: Dry skin, No foot check was done today as the patient just recently saw Dr. Tony in his office about 1 month ago . Monofilament exam not assessed, Neuro: Limited communication., Patient is nonverbal Lab Review 03/05/23 *labs reviewed 03/23/23 Hgb A1c: 6.0% Creat: 0.53; eGFR: >90 AST: 21; ALT: 27 K: 4.3 CBC: WBC:9.5; Hgb: 12.0; Hct: 36.9; Plt: 404 TSH: 1.61 ; FreeT4: 1.19 02/26/21 Hgb A1c: 6.0% Creat: 0.69; eGFR: >60 AST: 18; ALT: 24 K: 4.7 Na: 132 CBC: WBC:10.80; Hgb: 12.7; Hct: 38.6; Plt: 328 Tchol: 184; Tri ; HDL: 68 ; LDL: 84 TSH: 1.96 ; FreeT4: 0.92 02/22/20 Hgb A1c: 6.1% Creat: 0.72; eGFR: >60 AST: 19; ALT: 26 K: 4.6 CBC: WBC:9.20; Hgb: 12.4; Hct: 37.5; Plt: 363 Tchol: 169; Tri ; HDL: 56 ; LDL: 90 TSH: 1.55 ; FreeT4: 0.84 08/05/19 Hgb A1c: 6.2% Creat: 0.60; eGFR: >60 AST: 16; ALT: 21 K: 4.4 CBC: WBC:10; Hgb: 11.7; Hct: 35.1; Plt: 364 Tchol: 161; Tri ; HDL: 73 ; LDL: 70 FreeT4: 0.91 11/16/18 Hemoglobin A1c 5.7% Creatinine 0.80, GFR greater than 60 AST 16, ALT 21 TSH 2.78, free T4 0.76 WBC 8.9, hemoglobin 10.7, hematocrit 32.1, platelets 339 Date: 04/20/18 Hgb A1c: 6.0% Creat: 0.6; eGFR: >60 AST: 34; ALT: 23 K: 4.3 Tchol: 133; Tri ; HDL: 48 ; LDL: 61 TSH: 2.53 ; FreeT4: 1.04 10/13/17 HgbA1C 5.4% TSH 1.30 Free T4 1.1 Lipid Panel Total Cholesterol 143 Triglycerides 80 HDL 65 LDL 62 Microal/creat ratio - Serum Creatinine 0.46 Hepatic Enzymes AST 17 ALT 30 Last CBC - 04/14/17 Hgb A1c: 5.5% Creat: 0.51 AST: 21; ALT: 32 K: 4.1 CBC: WBC:7.4; Hgb: 12.9; Hct: 36.9; Plt: 361 TSH: 1.20 ; FreeT4: 1.2 Assessment: Dx: 1. Diabetic autonomic neuropathy associated with type 2 diabetes mellitus (HCC) Comprehensive Metabolic Panel CBC and Differential Hemoglobin A1c Lipid Panel TSH T4, Free 2. Hypothyroidism, unspecified type Comprehensive Metabolic Panel CBC and Differential Hemoglobin A1c Lipid Panel TSH T4, Free Type 2 diabetes, under good control Mik Shelton presents for follow-up of Type 2 diabetes Patient is currently managed with: Metformin and humalog sliding scale (has not required in >12 months). BG reviewed; stable BG. PLAN: CPM. Retinopathy: Negative Exam within last 12 months: yes Date: 2022 Went to [facility] Nephropathy: Negative Creat: 0.79 GFR >60 02/28, on lisinopril Mialb/creat ratio: not available Peripheral Neuropathy: Negative unable to communicate sxs Autonomic Neuropathy: Unknown Patient aware of lows. Pt unable to communicate Hyperlipidemia: Positive Currently taking: lovastatin (Mevacore). LFT's WNL on 02/28 Hypertension: Positive. Currently taking: lisinopril BP: (!) 148/78 Cardiac: Negative . Negative cardiac hx Vascular: Positive edema, mild dependent Feet: Negative sores or lesions at this time. Last foot exam: sees Dr. Tony, every 2-3 month Thyroid: Positive , on levothyroxine 50 mcg daily. TSH: 2.54 ; FreeT4: 0.89 02/28 plan: Continue current management Other: Plan: 1. Rx changes: none Humalog SSI only as needed. Metformin 500 mg once daily Discontinue: Humalog Sliding Scale: Continue current regimen. They will continue to fax her blood sugar readings every 4 weeks and willmake adjustments accordingly. Continue current dose of levothyroxine. Will recheck TFTs prior to next appointment in 6 months 2. Education: Reviewed ABCs of diabetes management (respective goals in parentheses): A1C (7.0-8.0), blood pressure (<130/80), and cholesterol (LDL <100). 3. Compliance at present is estimated to be good. Efforts to improve compliance (if necessary) willbe directed at regular blood sugar monitorin times daily. 4. Follow up: 12 months 5. Record blood sugar readings as instructed. Call if BG consistently <70 or >250. [phone] Check blood sugar 3 times daily. 6. Bring blood sugar meter to follow up appointment. Orders Placed This Encounter Procedures Comprehensive Metabolic Panel CBC and Differential Hemoglobin A1c Lipid Panel TSH T4, Free Electronically Signed by: Kaykay Bess CNP 03/23/23 3:04 PM documented in this [id number] History of Present illness Narrative* Soto Tony Jr., DPM - 03/11/2023 10:08 AM EDT HPI Chief Complaint Patient presents with Nail Care Nail care Diabetic Foot Exam Pt roustabout states pt is doing good and his blood sugar was good today. Patient is a pleasant 77-year-old female who comes in today with her roustabout for a diabetic foot exam and see if she can get her nails cut. Her nails cut at home recently from a doctor however he has since retired. Geriatric care is managed by primary including Dr. Mobley. Past Medical History: Diagnosis Date Cerebral palsy (HCC) Hypothyroidism Osteoporosis Seizure disorder (HCC) 2017 Type 2 diabetes mellitus (HCC) History reviewed. No pertinent surgical history. Social History Socioeconomic History Marital status: Single Tobacco Use Smoking status: Never Smokeless tobacco: Never Substance and Sexual Activity Alcohol use: No Drug use: No Review of Systems -Patient is essentially noncommunicative and therefore denied Physical Exam -Vascular: DP pulses are palpable 2-4. PT pulses are essentially nonpalpable. CFT is delayed with mild foot and ankle edema. Derm: Skin is shiny atrophic and dysvascular. No open ulcers no erythema no rashes noted nodules. Neuro: Light touch is blunted Babinski's is normal. Musculoskeletal: Muscle strength is 2 out of 5 with okay tone. Ankle subtalar midtarsal is full andpain-free. Nails left 10281 and right foot 28362 are elongated and dystrophic. Impression/Plan Problem List Items Addressed This Visit None Visit Diagnoses Onychodystrophy - Primary Peripheral vascular disease, unspecified (HCC) Patient is a pleasant 77 female with diabetes is, early arterial disease and onychodystrophy to 10 nails. -She does qualify for high risk nail care. Procedure: After timeout consent was performed, sharply debrided and debulked in height and length 10 onychodystrophy nails with a sharp cranial nippers consistent with a q8 modifier. Follow-up in 3 months or 6 months for foot nail care. documented in this [id number] Instructions* Patient Instructions* Boni Salter II, OD - 11/13/2022 10:43 AM EDT Assessment and Plan E11.9 Type 2 diabetes mellitus without retinopathy (HCC) (primary encounter diagnosis) Comment: Examination shows no ocular diabetic complications today. Continue yearly dilated eye examinations. 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 Continue observation for progression. H50.111 Exotropia of right eye Comment: Stable H52.13 Myopia of both eyes H52.4 Presbyopia Comment: Stable glasses power. Encourage glasses use for better distance clarity. I have confirmed and edited as necessary the relevant ophthalmic history, ROS, and the neuro exam findings as obtained by others. I have seen and examined Mik Shelton. I have discussed the case and the management of this patient's care with the Resident/Fellow, if applicable. I also have reviewed and agree with the assessment and plan as stated above and agree withall of its relevant components. Boni Salter II, OD [facility] History of Present illness Narrative* Boni Salter II, OD - 11/13/2022 10:42 AM EDT Assessment and Plan E11.9 Type 2 diabetes mellitus without retinopathy (HCC) (primary encounter diagnosis) Comment: Examination shows no ocular diabetic complications today. Continue yearly dilated eye examinations. 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 Continue observation for progression. H50.111 Exotropia of right eye Comment: Stable H52.13 Myopia of both eyes H52.4 Presbyopia Comment: Stable glasses power. Encourage glasses use for better distance clarity. I have confirmed and edited as necessary the relevant ophthalmic history, ROS, and the neuro exam findings as obtained by others. I have seen and examined Mik Shelton. I have discussed the case and the management of this patient's care with the Resident/Fellow, if applicable. I also have reviewed and agree with the assessment and plan as stated above and agree withall of its relevant components. Boni Salter II, OD documented in this [facility] NoteSend Summary: Discharge Summary Providers: Provider RoleProvider Name ReferringAl Jeffrey Diaz Pierre PrimaryFrbhargavi, Text Entry Discharge: Summary: Admission Date: .08-Aug-2022 21:19:00 Discharge Date: 10-Aug-2022 Attending Physician at Discharge: Félix Cartwright Admission Reason: drowsiness Final Discharge Diagnoses: drowsiness Procedures: none Condition at Discharge: Satisfactory Disposition at Discharge: .Home Vital Signs: T PRBPMAPSpO2 [id number]/7098% Date/Time08/10 16:121 16:121 16:121 16: 16:12 Range(35.8C - 36.2C ) (59 - 79 ) (14 - 22 ) (98 - 152 )/ (51 - 88 ) (90% - 99% ) As of 10-Aug-2022 12:20:00, patient is on 2 L/min of oxygen via nasal cannula. Date: Weight/Scale Type:Height: 09-Aug-2022 01:5364 kg / zse363.5 cm Physical Exam: Constitutional: Awake.Alert. Not engaging in any conversation or following verbal commands Eyes: Cataract. Pupil fixed and nonreactive most likely in the setting of the cataract Head/Neck: Neck supple, no apparent injury, thyroid without mass or tenderness, No JVD, trachea midline, no bruits Respiratory/Thorax: Patent airways, CTAB, normal breath sounds with good chest expansion, thorax symmetric Cardiovascular: Regular, rate and rhythm, no murmurs, 2+ equal pulses of the extremities, normal S 1and S 2 Gastrointestinal: Nondistended, soft, non-tender, no rebound tenderness or guarding, no masses palpable, no organomegaly, +BS, no bruits Musculoskeletal: ROM intact, no joint swelling, normal strength Extremities: normal extremities, no cyanosis edema, contusions or wounds, no clubbing Neurological: Unable to assess as patient does not follow verbal commands Skin: Warm and dry, no lesions, no rashes Hospital Course: 77-year-old female with a past medical history of cerebral palsy (nonambulatory at baseline, nonverbal, and total care), diabetes, hyperlipidemia and hypothyroidism who was brought by the EMS from a [place] [facility] [place] for being very somnolent and minimally responsive. On her way to the emergency room, paramedics gave the patient Narcan and according to the report, she regained consciousness. Please refer to the H&P for further detailed history. Blood work-up and CT scan of the head came back all grossly within normal limits. U tox screen came back positive for benzodiazepines but patient is already known to be on diazepam. Urinalysis showed some mild bacteria so she was started on antibiotics. But the next day, the culture came back showing only contamination. Within 24 hours, patient regained her consciousness and was back most likely to her baseline. She was alert. Not looking ill at all. The plan was to do a brain MRI to rule out ischemic stroke but unfortunately, and because of the holidays, services not available for another 48 hours. So given her clinical improvement, and her already known underlying history of cerebral palsy, I decided to discharge the patient back to her [place] [facility] [place]. Patient will need to follow-up with neurology as outpatient. A total of 40 minutes were spent in preparing in coordinating this patient's discharge. This includes a [id number] encounter, patient counseling, discharge and follow-up assessments. (This note was generated with voice recognition software and may contain errors including spelling, grammar, syntax and misrecognition of what was dictated, that are not fully corrected) Discharge Information: and Continuing Care: Lab Results - Pending: None Radiology Results - Pending: None Discharge Instructions: Nutrition/Diet: low fat, diabetic/carbohydrate counted Follow Up Appointments: Follow-Up Appointment 01: Physician/Dept/Service: neurology Call to Schedule in: 2 weeks Discharge Medications: Home Medication calcium carbonate 600 mg oral tablet, chewable - orally 2 times a day Multiple Vitamins with Minerals oral capsule - orally every 24 hours Vitamin B12 1000 mcg oral tablet - 1 tab(s) orally once a day Vitamin D3 50 mcg (2000 intl units) oral tablet - 1 tab(s) orally once a day metFORMIN 500 mg oral tablet, extended release - 1 tab(s) orally once a day carBAMazepine 100 mg oral tablet, chewable - 1 tab(s) orally every 12 hours diazePAM 2 mg oral tablet - 0.5 tab(s) orally every 12 hours insulin lispro 100 units/mL injectable solution - Use as directed per sliding scale alendronate 70 mg oral tablet - 1 tab(s) orally once a week guaiFENesin 100 mg/5 mL oral liquid - 10 milliliter(s) orally every 4 hours hydrOXYzine hydrochloride 25 mg oral tablet - 1 tab(s) orally 4 times a day levothyroxine 50 mcg (0.05 mg) oral capsule - 1 cap(s) orally once a day lisinopril 30 mg oral tablet - 1 tab(s) orally once a day lovastatin 20 mg oral tablet - 1 tab(s) orally once a day ARIPiprazole 10 mg oral tablet - 1 tab(s) orally once a day PRN Medication bisacodyl 10 mg rectal suppository (more content not included)...[facility]12-31-2022 NoteHistory of Present Illness: HPI: MIK SHELTON is a 77 year old Female with past medical history significant for cerebral palsy/hypothyroidism/type 2 diabetes mellitus/hyperlipidemia and other medical issues who was brought into the hospital from an assisted living facility due to severe somnolence and barely responsive, reportedly the patient was given Narcan in route by the paramedics and she was given another dose of Narcan here in the ER with not much improvement, CT scan of the head was nonacute, chest x-ray was within normal limits, EKG showed normal sinus rhythm without any concerning changes, blood work was grossly normal, ABG showed compensated hypercapnic respiratory failure, urine drug screen was positive for benzos however the patient is on diazepam, on my Patient was in bed barely responding to sternal rub and her pupils were fixed and dilated Comorbidities: Comorbidites: Comorbid Conditionsdiabetes Diabetes TypeType 2 Insulin Dependentno DM Acuity or Statuscontrolled DM Complicationsnone Social History: Social History: Smoking Statusnever smoker (1) Alcohol Usedenies(1) Drug Usedenies (1) Drug 2 Usedenies (1) Allergies: penicillin: Unknown amoxicillin: Unknown Medications Prior to Admission: alendronate 70 mg oral tablet: 1 tab(s) orally once a week guaiFENesin 100 mg/5 mL oral liquid: 10 milliliter(s) orally every 4 hours hydrOXYzine hydrochloride 25 mg oral tablet: 1 tab(s) orally 4 times a day lispro insulin: as per kayding scal;e levothyroxine 50 mcg (0.05 mg) oral capsule: 1 cap(s) orally once a day lisinopril 30 mg oral tablet: 1 tab(s) orally once a day lovastatin 20 mg oral tablet: 1 tab(s) orally once a day Tylenol 8 Hour: 325 milligram(s) orally every 6 hours, As Needed ARIPiprazole 10 mg oral tablet: 1 tab(s) orally once a day bisacodyl 10 mg rectal suppository: rectal every 48 hours, As Needed calcium carbonate 600 mg oral tablet, chewable: orally 2 times a day carBAMazepine 100 mg oral tablet, chewable: orally every 12 hours Multiple Vitamins with Minerals oral capsule: orally every 24 hours diazePAM 2 mg oral tablet: orally every 12 hours Vitamin B12 1000 mcg oral tablet: 1 tab(s) orally once a day Vitamin D3 50 mcg (2000 intl units) oral tablet: 1 tab(s) orally once a day metFORMIN 500 mg oral tablet, extended release: 1 tab(s) orally once a day. Review of Systems: Incomplete ROS: patient's impaired mental status Objective: Objective Information: T PRBPMAPSpO2 [id number]/5799% Date/Time08/08 21: 1: 1: 1: 1:49 Range(36.3C - 36.3C ) (59 - 71 ) (14 - 18 ) (98 - 128 )/ (51 - 83 ) (94% - 99% ) As of 09-Aug-2022 01:49:00, patient is on 2 L/min of oxygen via nasal cannula. Pain reported at 08/08 21:37: unable to assess Physical Exam by System: Constitutional: Patient was in bed severely somnolent/barely responsive to sternal rub Eyes: Fixed and dilated Head/Neck: Neck supple, no apparent injury, thyroid without mass or tenderness, No JVD, trachea midline, no bruits Respiratory/Thorax: Patent airways, CTAB, normal breath sounds with good chest expansion, thorax symmetric Cardiovascular: Regular, rate and rhythm, no murmurs, 2+ equal pulses of the extremities, normal S 1and S 2 Gastrointestinal: Nondistended, soft, non-tender, no rebound tenderness or guarding, no masses palpable, no organomegaly, +BS, no bruits Musculoskeletal: ROM intact, no joint swelling, normal strength Extremities: normal extremities, no cyanosis edema, contusions or wounds, no clubbing Neurological: Unable to assess due to severe somnolence Skin: Warm and dry, no lesions, no rashes Recent Lab Results: Results: CBC: 08/08/2022 21:33 \ Hgb / \ 11.4 L / WBC Plt 8.6 289 / Hct \ / 36.5 \ RBC: 3.68 L MCV: 99 Neutrophil %: 60.0 CMP: 08/08/2022 21:33 NA+ Cl- BUN / 144 104 35 H / Glucose 140 H K+ HCO3- Creat \ 4.5 32 0.92 \ \ T Bili / \ 0.3 / AST x ---- x ALT 21 x ---- x 30 / Alk P \ / 84 \ Calcium : 9.2 Anion Gap : 13 Albumin : 3.7 T Protein : 6.6 Recent Arterial Blood Gas Results 08/09/2022 01:10 [id number] pH7.38 [id number] SO299 Base Excess4.9null Assessment and Plan: Problem List: Admitting Dx: Acute metabolic encephalopathy: Assessment: Assessment and plan *Acute metabolic encephalopathy in light of cerebral palsy/hypothyroidism Admit to the floor on telemetry CT scan of the head is nonacute EKG was normal sinus rhythm without any concerning changes Blood work was grossly normal Vital signs on presentation showed hypertension that was responsive to 1 L of IV fluids Status post 2 doses of Narcan without much improvement Physical exam showed bilateral fixed dilated pupils UDS was positiv (more content not included)...[facility] 03-12-2022 History of Present illness Narrative* Soto Tony Jr., CURTIS - 03/12/2022 11:14 AM EDT HPI Chief Complaint Patient presents with Diabetic Foot Exam Diabetic foot check and nail care. Patient is a pleasant 76-year-old female who comes in today with her roustabout for a diabetic foot exam and see if she can get her nails cut. Her nails cut at home recently from a doctor however he has since retired. Geriatric care is managed by primary including Dr. Mobley. Past Medical History: Diagnosis Date Cerebral palsy (HCC) Hypothyroidism Osteoporosis Seizure disorder (HCC) 2017 Type 2 diabetes mellitus (HCC) History reviewed. No pertinent surgical history. Social History Socioeconomic History Marital status: Single Tobacco Use Smoking status: Never Smokeless tobacco: Never Substance and Sexual Activity Alcohol use: No Drug use: No Review of Systems -Patient is essentially noncommunicative and therefore denied Physical Exam -Vascular: DP pulses are palpable 2-4. PT pulses are essentially nonpalpable. CFT is delayed with mild foot and ankle edema. Derm: Skin is shiny atrophic and dysvascular. No open ulcers no erythema no rashes noted nodules. Neuro: Light touch is blunted Babinski's is normal. Musculoskeletal: Muscle strength is 2 out of 5 with okay tone. Ankle subtalar midtarsal is full andpain-free. Nails left 97154 and right foot 92852 are elongated and dystrophic. Impression/Plan Problem List Items Addressed This Visit None Visit Diagnoses Peripheral vascular disease, unspecified (HCC) - Primary Onychodystrophy Patient is a pleasant 76 female with diabetes is, early arterial disease and onychodystrophy to 10 nails. -She does qualify for high risk nail care. Procedure: After timeout consent was performed, sharply debrided and debulked in height and length 10 onychodystrophy nails with a sharp cranial nippers consistent with a q8 modifier. Follow-up in 3 months or 6 months for foot nail care. documented in this [id number] History of Present illness Narrative* Kaykay Bess CNP - 03/10/2022 9:20 AM EDT Patient ID: Mik Shelton is a 76 y.o. female 1945 Subjective: Mik Shelton presents for follow-up of Type 2 diabetes Patient has had diabetes for 5 years. Diagnosed in 2012 Ms. Shelton is a 76-year-old female patient presents to our office with her caregiver for follow-up of type 2 diabetes. The patient has a developmental delay and lives in a [place] [facility] [place]. She is nonverbal. Her caregiver states that she has not had any issues since her last visit with us about 12 months ago. Currently taking: Metformin 2-500 mg once daily Humalog insulin: 2 units at breakfast; 0 units at lunch; 2 units at supper Hold if BG <80 or patient does not eat the majority of her meal. Humalog Sliding Scale: If blood sugar 250-300 give 1 extra unit humalog SQ at breakfast and dinner If blood sugar > 300 give 2 extra units at breakfast and dinner Outpatient Medications Marked as Taking for the 03/10/22 encounter (Office Visit) with Kaykay Maria CNP: acetaminophen (TYLENOL) 325 MG tablet, Take 325 mg by mouth every 4 (four) hours as needed. acetaminophen (TYLENOL) 650 MG suppository, Insert into the rectum. alendronate (FOSAMAX) 70 mg/75 mL solution, Take 70 mg by mouth every 7 days Take in the morning with a full glass of water, on an empty stomach, and do not take anything else by mouth or lie down for the next 30 min. . ARIPiprazole (ABILIFY) 20 MG tablet, Take 10 mg by mouth daily . bisacodyl (DULCOLAX) 10 mg suppository, Insert 10 mg into the rectum daily as needed. calcium-vitamin D (OS-EMEKA +D) 500 mg(1,250mg) -200 unit per tablet, take by Oral route. carBAMazepine (TEGretol) 100 mg chewable tablet, Chew and Swallow 2 (two) times a day. cholecalciferol, vitamin D3, 1,000 unit tablet, Take 1,000 Units by mouth daily . cyanocobalamin (B-12) 1000 MCG tablet, Take 1,000 mcg by mouth daily . diazepam (VALIUM) 2 MG tablet, Take 0.5 tablet by oral route every morning and a full tablet every evening. docusate sodium (COLACE) 100 MG capsule, Take 100 mg by mouth 2 (two) times a day . hydrOXYzine (ATARAX) 50 MG tablet, Take 25 mg by mouth nightly . insulin lispro (HumaLOG) 100 unit/mL injection, Use as directed, approx 10 units per day. (Patient taking differently: Use as directed, approx 10 units per day 2 units at breakfast and dinner .) levothyroxine (SYNTHROID, LEVOTHROID) 50 MCG tablet, Take 50 mcg by mouth daily. lisinopril (PRINIVIL,ZESTRIL) 30 MG tablet, 30 mg daily . lovastatin (MEVACOR) 20 MG tablet, Take 20 mg by mouth nightly . metFORMIN (GLUCOPHAGE) 500 MG tablet, Take 1 tablet by mouth daily with breakfast . multivitamin (THERAGRAN) per tablet, take 1 tablet by oral route every day with food. Weight trend: Current diet: diabetic Current exercise: no regular exercise patient is in a motorAppercode scooter 02/03 Current monitoring regimen: home blood tests - 3 times daily Home blood sugar records: FBG 70-135, Pre-dinner 90-154, HS 96-145, 238 Any episodes of hypoglycemia? no Is patient on BRYANT inhibitor or angiotensin II receptor nena? yes BRYANT: Lisinopril Review of Systems: Review of Systems Constitutional: Negative for appetite change, fatigue and unexpected weight change. Eyes: Negative for visual disturbance. Respiratory: Negative for cough, chest tightness, shortness of breath and wheezing. Cardiovascular: Negative for chest pain, palpitations and leg swelling. Gastrointestinal: Negative for abdominal pain, constipation, diarrhea, nausea and vomiting. Endocrine: Negative for polydipsia, polyphagia and polyuria. Genitourinary: Negative for dysuria and frequency. Musculoskeletal: Negative for arthralgias, gait problem and myalgias. Neurological: Negative for weakness, numbness and headaches. Caregiver denies any current symptoms or issues. The following portions of the patient's history were reviewed and updated as appropriate: allergies, current medications, past family history, past medical history, past social history, past surgicalhistory and problem list. Objective: BP 133/78 Pulse (!) 111 Ht 5' 2 Wt 61.7 kg (136 lb) BMI 24.87 kg/m Weight stable at [facility] Physical Exam: General: appears stated age and cooperative patient in a motor scooter, she is nonverbal Eyes: conjunctivae/corneas clear. PERRL, EOM's intact. Neck: no adenopathy, supple, symmetrical, trachea midline. Thyroid: No thyromegaly appreciated Lung: clear to auscultation bilaterally Heart: regular rate and rhythm, S1, S2 normal, no murmur, click, rub or gallop Extremities: extremities normal, atraumatic, no cyanosis , +edema, both ankles Feet: Dry skin, No foot check was done today as the patient just recently saw Dr. Tony in his office about 1 month ago . Monofilament exam not assessed, Neuro: Limited communication., Patient is nonverbal Lab Review 02/26/21 *labs reviewed 03/10/22 Hgb A1c: 6.0% Creat: 0.69; eGFR: >60 AST: 18; ALT: 24 K: 4.7 Na: 132 CBC: WBC:10.80; Hgb: 12.7; Hct: 38.6; Plt: 328 Tchol: 184; Tri ; HDL: 68 ; LDL: 84 TSH: 1.96 ; FreeT4: 0.92 02/22/20 Hgb A1c: 6.1% Creat: 0.72; eGFR: >60 AST: 19; ALT: 26 K: 4.6 CBC: WBC:9.20; Hgb: 12.4; Hct: 37.5; Plt: 363 Tchol: 169; Tri ; HDL: 56 ; LDL: 90 TSH: 1.55 ; FreeT4: 0.84 08/05/19 Hgb A1c: 6.2% Creat: 0.60; eGFR: >60 AST: 16; ALT: 21 K: 4.4 CBC: WBC:10; Hgb: 11.7; Hct: 35.1; Plt: 364 Tchol: 161; Tri ; HDL: 73 ; LDL: 70 FreeT4: 0.91 11/16/18 Hemoglobin A1c 5.7% Creatinine 0.80, GFR greater than 60 AST 16, ALT 21 TSH 2.78, free T4 0.76 WBC 8.9, hemoglobin 10.7, hematocrit 32.1, platelets 339 Date: 04/20/18 Hgb A1c: 6.0% Creat: 0.6; eGFR: >60 AST: 34; ALT: 23 K: 4.3 Tchol: 133; Tri ; HDL: 48 ; LDL: 61 TSH: 2.53 ; FreeT4: 1.04 10/13/17 HgbA1C 5.4% TSH 1.30 Free T4 1.1 Lipid Panel Total Cholesterol 143 Triglycerides 80 HDL 65 LDL 62 Microal/creat ratio - Serum Creatinine 0.46 Hepatic Enzymes AST 17 ALT 30 Last CBC - 04/14/17 Hgb A1c: 5.5% Creat: 0.51 AST: 21; ALT: 32 K: 4.1 CBC: WBC:7.4; Hgb: 12.9; Hct: 36.9; Plt: 361 TSH: 1.20 ; FreeT4: 1.2 Assessment: Dx: 1. Diabetic autonomic neuropathy associated with type 2 diabetes mellitus (HCC) Comprehensive Metabolic Panel Hemoglobin A1c CBC and Differential TSH T4, Free 2. Hypothyroidism, unspecified type Type 2 diabetes, under good control Mik Courtney Billy presents for follow-up of Type 2 diabetes Patient is currently managed with: Metformin and humalog sliding scale . BG reviewed; stable BG. PLAN: CPM. Retinopathy: Negative Exam within last 12 months: yes Date: Oct 06, 2018. Went to [facility] Nephropathy: Negative Creat: 0.79 GFR >60 02/28, on lisinopril Mialb/creat ratio: not available Peripheral Neuropathy: Negative unable to communicate sxs Autonomic Neuropathy: Unknown Patient aware of lows. Pt unable to communicate Hyperlipidemia: Positive Currently taking: lovastatin (Mevacore). LFT's WNL on 02/28 Hypertension: Positive. Currently taking: lisinopril BP: 133/78 Cardiac: Negative . Negative cardiac hx Vascular: Positive edema, mild dependent Feet: Negative sores or lesions at this time. Last foot exam: sees Dr. Claire, every 2-3 month Thyroid: Positive , on levothyroxine 50 mcg daily. TSH: 2.54 ; FreeT4: 0.89 02/28 plan: Continue current management Other: Plan: 1. Rx changes: none Humalog SSI only as needed. Metformin 500 mg once daily Humalog Sliding Scale: If blood sugar 250-300 give 1 extra unit humalog SQ at breakfast and dinner If blood sugar > 300 give 2 extra units at breakfast and dinner Continue current regimen. They will continue to fax her blood sugar readings every 4 weeks and willmake adjustments accordingly. Continue current dose of levothyroxine. Will recheck TFTs prior to next appointment in 6 months 2. Education: Reviewed ABCs of diabetes management (respective goals in parentheses): A1C (7.0-8.0), blood pressure (<130/80), and cholesterol (LDL <100). 3. Compliance at present is estimated to be good. Efforts to improve compliance (if necessary) willbe directed at regular blood sugar monitorin times daily. 4. Follow up: 12 months 5. Record blood sugar readings as instructed. Call if BG consistently <70 or >250. [phone] Check blood sugar 3 times daily. 6. Bring blood sugar meter to follow up appointment. Orders Placed This Encounter Procedures Comprehensive Metabolic Panel Hemoglobin A1c CBC and Differential TSH T4, Free Electronically Signed by: Kaykay Bess CNP 03/10/22 3:04 PM documented in this [id number] Instructions* Patient Instructions* Boni Salter II, OD - 11/07/2021 10:01 AM EDT Assessment and Plan E11.9, Z79.4 Controlled type 2 diabetes mellitus without complication, with long-term current use of insulin (HCC) (primary encounter diagnosis) Comment: Examination shows no ocular diabetic complications today. Discussed need for optimal diabetes control to minimize chance of ocular complications. Advise patient to immediately report worsening in status or additional symptoms. Continue yearly dilated eye examinations. 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 Monitor yearly. H50.10 Exotropia of right eye Comment: Longstanding and stable. H52.13 Myopia of both eyes H52.4 Presbyopia Comment: Glasses as tolerated on face. I have confirmed and edited as necessary the relevant ophthalmic history, ROS, and the neuro exam findings as obtained by others. I have seen and examined Mik Shelton. I have discussed the case and the management of this patient's care with the Resident/Fellow, if applicable. I also have reviewed and agree with the assessment and plan as stated above and agree withall of its relevant components. Boni Salter II, OD [facility] History of Present illness Narrative* Boni Salter II, OD - 11/07/2021 10:00 AM EDT Assessment and Plan E11.9, Z79.4 Controlled type 2 diabetes mellitus without complication, with long-term current use of insulin (HCC) (primary encounter diagnosis) Comment: Examination shows no ocular diabetic complications today. Discussed need for optimal diabetes control to minimize chance of ocular complications. Advise patient to immediately report worsening in status or additional symptoms. Continue yearly dilated eye examinations. 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 Monitor yearly. H50.10 Exotropia of right eye Comment: Longstanding and stable. H52.13 Myopia of both eyes H52.4 Presbyopia Comment: Glasses as tolerated on face. I have confirmed and edited as necessary the relevant ophthalmic history, ROS, and the neuro exam findings as obtained by others. I have seen and examined Mik Shelton. I have discussed the case and the management of this patient's care with the Resident/Fellow, if applicable. I also have reviewed and agree with the assessment and plan as stated above and agree withall of its relevant components. Boni Salter II, OD [facility] History of Present illness Narrative* Kaykay Bess, STORM CHASER - 03/11/2021 10:11 AM EDT Images from the original note were not included. Patient ID: Mik Shelton is a 75 y.o. female 1945 Subjective: Mik Shelton presents for follow-up of Type 2 diabetes Patient has had diabetes for 5 years. Diagnosed in 2012 Ms. Shelton is a 75-year-old female patient presents to our office with her caregiver for follow-up of type 2 diabetes. The patient has a developmental delay and lives [place] [facility]. She is nonverbal. Her caregiver states that she has not had any issues since her last visit with us about 12 months ago. Currently taking: Metformin 2-500 mg once daily Humalog insulin: 2 units at breakfast; 0 units at lunch; 2 units at supper Hold if BG <80 or patient does not eat the majority of her meal. Humalog Sliding Scale: If blood sugar 250-300 give 1 extra unit humalog SQ at breakfast and dinner If blood sugar > 300 give 2 extra units at breakfast and dinner Outpatient Medications Marked as Taking for the 03/11/21 encounter (Office Visit) with Kaykay Maria CNP: acetaminophen (TYLENOL) 325 MG tablet, Take 325 mg by mouth every 4 (four) hours as needed. acetaminophen (TYLENOL) 650 MG suppository, Insert into the rectum. alendronate (FOSAMAX) 70 mg/75 mL solution, Take 70 mg by mouth every 7 days Take in the morning with a full glass of water, on an empty stomach, and do not take anything else by mouth or lie down for the next 30 min. . calcium-vitamin D (OS-EMEKA +D) 500 mg(1,250mg) -200 unit per tablet, take by Oral route. carBAMazepine (TEGretol) 100 mg chewable tablet, Chew and Swallow 2 (two) times a day. cyanocobalamin (vitamin B-12) 1000 MCG tablet, Take 1,000 mcg by mouth daily . diazepam (VALIUM) 2 MG tablet, Take 0.5 tablet by oral route every morning and a full tablet every evening. hydrOXYzine (ATARAX) 50 MG tablet, Take 25 mg by mouth nightly . insulin lispro (HumaLOG) 100 unit/mL injection, Use as directed, approx 10 units per day. (Patient taking differently: Use as directed, approx 10 units per day 2 units at breakfast and dinner .) levothyroxine (SYNTHROID, LEVOTHROID) 50 MCG tablet, Take 50 mcg by mouth daily. lisinopril (PRINIVIL,ZESTRIL) 30 MG tablet, 30 mg daily . lovastatin (MEVACOR) 20 MG tablet, Take 20 mg by mouth nightly . metFORMIN (GLUCOPHAGE) 500 MG tablet, Take 2 tablets by mouth daily with breakfast . multivitamin (THERAGRAN) per tablet, take 1 tablet by oral route every day with food. Weight trend: Current diet: diabetic Current exercise: no regular exercise patient is in a motorized scooter 02/03 Current monitoring regimen: home blood tests - 3 times daily Home blood sugar records: FBG 70-135, Pre-dinner 90-154, HS 96-145, 238 Any episodes of hypoglycemia? no Is patient on BRYANT inhibitor or angiotensin II receptor nena? yes BRYANT: Lisinopril Review of Systems: Review of Systems Constitutional: Negative for appetite change, fatigue and unexpected weight change. Eyes: Negative for visual disturbance. Respiratory: Negative for cough, chest tightness, shortness of breath and wheezing. Cardiovascular: Negative for chest pain, palpitations and leg swelling. Gastrointestinal: Negative for abdominal pain, constipation, diarrhea, nausea and vomiting. Endocrine: Negative for polydipsia, polyphagia and polyuria. Genitourinary: Negative for dysuria and frequency. Musculoskeletal: Negative for arthralgias, gait problem and myalgias. Neurological: Negative for weakness, numbness and headaches. Caregiver denies any current symptoms or issues. The following portions of the patient's history were reviewed and updated as appropriate: allergies, current medications, past family history, past medical history, past social history, past surgicalhistory and problem list. Objective: BP 133/87 Pulse 88 Weight stable at F Physical Exam: General: appears stated age and cooperative patient in a motor scooter, she is nonverbal Eyes: conjunctivae/corneas clear. PERRL, EOM's intact. Neck: no adenopathy, supple, symmetrical, trachea midline. Thyroid: No thyromegaly appreciated Lung: clear to auscultation bilaterally Heart: regular rate and rhythm, S1, S2 normal, no murmur, click, rub or gallop Extremities: extremities normal, atraumatic, no cyanosis , +edema, both ankles Feet: Dry skin, No foot check was done today as the patient just recently saw Dr. Tony in his office about 1 month ago. Monofilament exam not assessed, Neuro: Limited communication., Patient is nonverbal Lab Review 02/26/21 *labs reviewed 03/11/21 Hgb A1c: 6.0% Creat: 0.69; eGFR: >60 AST: 18; ALT: 24 K: 4.7 Na: 132 CBC: WBC:10.80; Hgb: 12.7; Hct: 38.6; Plt: 328 Tchol: 184; Tri ; HDL: 68 ; LDL: 84 TSH: 1.96 ; FreeT4: 0.92 02/22/20 Hgb A1c: 6.1% Creat: 0.72; eGFR: >60 AST: 19; ALT: 26 K: 4.6 CBC: WBC:9.20; Hgb: 12.4; Hct: 37.5; Plt: 363 Tchol: 169; Tri ; HDL: 56 ; LDL: 90 TSH: 1.55 ; FreeT4: 0.84 08/05/19 Hgb A1c: 6.2% Creat: 0.60; eGFR: >60 AST: 16; ALT: 21 K: 4.4 CBC: WBC:10; Hgb: 11.7; Hct: 35.1; Plt: 364 Tchol: 161; Tri ; HDL: 73 ; LDL: 70 FreeT4: 0.91 11/16/18 Hemoglobin A1c 5.7% Creatinine 0.80, GFR greater than 60 AST 16, ALT 21 TSH 2.78, free T4 0.76 WBC 8.9, hemoglobin 10.7, hematocrit 32.1, platelets 339 Date: 04/20/18 Hgb A1c: 6.0% Creat: 0.6; eGFR: >60 AST: 34; ALT: 23 K: 4.3 Tchol: 133; Tri ; HDL: 48 ; LDL: 61 TSH: 2.53 ; FreeT4: 1.04 10/13/17 HgbA1C 5.4% TSH 1.30 Free T4 1.1 Lipid Panel Total Cholesterol 143 Triglycerides 80 HDL 65 LDL 62 Microal/creat ratio - Serum Creatinine 0.46 Hepatic Enzymes AST 17 ALT 30 Last CBC - 04/14/17 Hgb A1c: 5.5% Creat: 0.51 AST: 21; ALT: 32 K: 4.1 CBC: WBC:7.4; Hgb: 12.9; Hct: 36.9; Plt: 361 TSH: 1.20 ; FreeT4: 1.2 Assessment: Dx: 1. Diabetic autonomic neuropathy associated with type 2 diabetes mellitus (HCC) Comprehensive Metabolic Panel Hemoglobin A1c Lipid Panel TSH T4, Free CBC and Differential Type 2 diabetes, under good control Mik Shelton presents for follow-up of Type 2 diabetes Patient is currently managed with: Metformin. BG reviewed; stable BG. PLAN: CPM. Retinopathy: Negative Exam within last 12 months: yes Date: Oct 06, 2018. Went to [facility] Nephropathy: Negative Creat: 0.72 GFR >60 02/22/20, on lisinopril Mialb/creat ratio: not available Peripheral Neuropathy: Negative unable to communicate sxs Autonomic Neuropathy: Unknown Patient aware of lows. Pt unable to communicate Hyperlipidemia: Positive Currently taking: lovastatin (Mevacore). LFT's WNL on 11/16/2018 Tchol: 169; Tri ; HDL: 56 ; LDL: 90 02/22/20 Hypertension: Positive. Currently taking: lisinopril BP: 133/87 Cardiac: Negative . Negative cardiac hx Vascular: Positive edema, mild dependent Feet: Negative sores or lesions at this time. Last foot exam: sees Dr. Claire, every 2-3 month Thyroid: Positive , on levothyroxine 50 mcg daily. TSH: 1.55 ; FreeT4: 0.84 02/22/20 plan: Continue current management Other: Plan: 1. Rx changes: none Humalog SSI only as needed. Metformin 2-500 mg once daily Humalog Sliding Scale: If blood sugar 250-300 give 1 extra unit humalog SQ at breakfast and dinner If blood sugar > 300 give 2 extra units at breakfast and dinner Continue current regimen. They will continue to fax her blood sugar readings every 4 weeks and willmake adjustments accordingly. Continue current dose of levothyroxine. Will recheck TFTs prior to next appointment in 6 months 2. Education: Reviewed ABCs of diabetes management (respective goals in parentheses): A1C (7.0-8.0), blood pressure (<130/80), and cholesterol (LDL <100). 3. Compliance at present is estimated to be good. Efforts to improve compliance (if necessary) willbe directed at regular blood sugar monitorin times daily. 4. Follow up: 12 months 5. Record blood sugar readings as instructed. Call if BG consistently <70 or >250. [phone] Check blood sugar 3 times daily. 6. Bring blood sugar meter to follow up appointment. Orders Placed This Encounter Procedures Comprehensive Metabolic Panel Hemoglobin A1c Lipid Panel TSH T4, Free CBC and Differential Electronically Signed by: Kaykay Bess CNP 03/11/21 3:04 PM [facility] encounter[facility]Evaluation [facility]* Diagnosis Diabetic autonomic neuropathy associated with type 2 diabetes mellitus (HCC)- Primary Type II or unspecified type diabetes mellitus with neurological manifestations, not stated as uncontrolled [facility] Diagnosis Controlled type 2 diabetes mellitus without complication, with long-term current use of insulin (HCC)- Primary Combined forms of age-related cataract of both eyes Other and combined forms of senile cataract Exotropia of right eye Exotropia, unspecified Myopia of both eyes Myopia Presbyopia [facility] Diagnosis Onset Date Resolution Status Hypertension chronic Hypothyroidism chronic Osteoporosis chronic Type 2 diabetes mellitus [facility] Work Phone: Evaluation note* Diagnosis Diabetic autonomic neuropathy associated with type 2 diabetes mellitus (HCC)- Primary Type II or unspecified type diabetes mellitus with neurological manifestations, not stated as uncontrolled Hypothyroidism, unspecified type [facility]* Diagnosis Peripheral vascular disease, unspecified (HCC)- Primary Peripheral vascular disease, unspecified Onychodystrophy Other specified disease of nail [facility]* Diagnosis Onset Date Resolution Status Flu vaccine need acute Hypertension chronic 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 Osteoporosis chronic Type 2 diabetes mellitus [facility] Work Phone: Evaluation note* Constitutional: Patient was in bed severely somnolent/barely responsive to sternal rubSkin: Warm and dry, no lesions, no rashesEyes: Fixed and dilatedHead/Neck: Neck supple, no apparent injury, thyroid without mass or tenderness, No JVD, trachea midline, no bruitsRespiratory/Thorax: Patent airways,CTAB, normal breath sounds with good chest expansion, thorax symmetricCardiovascular: Regular, rateand rhythm, no murmurs, 2+ equal pulses of the extremities, normal S 1and S 2Gastrointestinal: Nondistended, soft, non-tender, no rebound tenderness or guarding, no masses palpable, no organomegaly, +BS, no bruitsMusculoskeletal: ROM intact, no joint swelling, normal strengthExtremities: normal extremities, no cyanosis edema, contusions or wounds, no clubbingNeurological: Unable to assess due to severe somnolence 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 Osteoporosis chronic Type 2 diabetes mellitus [facility] Cerebral palsy chronic Hypoxemia noneactive Acute metabolic encephalopathy noneactive [facility] Work Phone: Evaluation note* Diagnosis Type 2 diabetes mellitus without retinopathy (HCC)- Primary Type II or unspecified type diabetes mellitus without mention of complication, not stated as uncontrolled Combined forms of age-related cataract of both eyes Other and combined forms of senile cataract Exotropia of right eye Exotropia, unspecified Myopia of both eyes Myopia Presbyopia [facility] Diagnosis Onset Date Resolution Status Cerebral palsy chronic Hypoxemia noneactive Acute metabolic encephalopathy noneactive Epilepsy acute Vitamin d deficiency acute Cerebral palsy chronic Altered mental status resolv ed Hypertension chronic 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 Osteoporosis chronic Type 2 diabetes mellitus [facility] Work Phone: Evaluation note* Diagnosis Onset Date Resolution Status Epilepsy acute Vitamin d deficiency acute Cerebral palsy chronic Altered mental status resolv ed Hypertension chronic 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 Osteoporosis chronic Type 2 diabetes mellitus [facility] Work Phone: Evaluation note* Diagnosis Onychodystrophy- Primary Other specified disease of nail Peripheral vascular disease, unspecified (HCC) Peripheral vascular disease, unspecified [facility]* Diagnosis Diabetic autonomic neuropathy associated with type 2 diabetes mellitus (HCC)- Primary Type II or unspecified type diabetes mellitus with neurological manifestations, not stated as uncontrolled Hypothyroidism, unspecified type [facility]* Diagnosis Onychodystrophy- Primary Other specified disease of nail Peripheral vascular disease, unspecified (HCC) Peripheral vascular disease, unspecified [facility] Diagnosis Hypothyroidism, unspecified type- Primary Diabetic autonomic neuropathy associated with type 2 diabetes mellitus (CMS/[facility]) Type II or unspecified type diabetes mellitus with neurological manifestations, not stated as uncontrolled Controlled type 2 diabetes mellitus without complication, with long-term current use of insulin (CMS/HCC) Intellectual functioning disability Unspecified mental retardation Primary hypertension Unspecified essential hypertension Mixed hyperlipidemia documented in this encounter [facility] Work Phone: Evaluation note* Diagnosis Peripheral vascular disease, unspecified (HCC)- Primary Peripheral vascular disease, unspecified Onychodystrophy Other specified disease of nail [facility]* Diagnosis Positive colorectal cancer screening using Cologuard test documented in this encounter [facility] Work Phone: Evaluation note* Diagnosis Type 2 diabetes mellitus without retinopathy (HCC)- Primary Type II or unspecified type diabetes mellitus without mention of complication, not stated as uncontrolled Combined forms of age-related cataract of both eyes Other and combined forms of senile cataract Exotropia of right eye Exotropia, unspecified Myopia of both eyes Myopia Presbyopia [facility] Diagnosis Diabetic autonomic neuropathy associated with type 2 diabetes mellitus (Multi)- Primary Type II or unspecified type diabetes mellitus with neurological manifestations, not stated as uncontrolled Controlled type 2 diabetes mellitus without complication, with long-term current use of insulin (Multi) Abnormal intentional weight loss documented in this encounter [facility] Work Phone: Evaluation note* Diagnosis Onychodystrophy- Primary Other specified disease of nail Peripheral vascular disease, unspecified (HCC) Peripheral vascular disease, unspecified [facility] Diagnosis Thrush- Primary Candidiasis of mouth documented in this encounter [facility] Work Phone: Evaluation note* Diagnosis Hypotension, unspecified hypotension type- Primary [facility]* Diagnosis Type 2 diabetes mellitus without complication, with long-term current use of insulin ([facility])- Primary Hypothyroidism, unspecified type [facility]* Diagnosis Hypercalcemia- Primary Diabetic autonomic neuropathy associated with type 2 diabetes mellitus (Multi) Type II or unspecified type diabetes mellitus with neurological manifestations, not stated as uncontrolled 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 Acute respiratory failure with hypercapnia (Multi) Chronic viral hepatitis B without 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 (Multi) Mixed hyperlipidemia Primary hypertension Unspecified essential hypertension Controlled type 2 diabetes mellitus without complication, with long-term current use of insulin (Multi) Acquired hypothyroidism Unspecified hypothyroidism Seizures (Multi) Other convulsions documented in this encounter [facility] Work Phone: Evaluation note* Diagnosis Onychodystrophy- Primary Other specified disease of nail Peripheral vascular disease, unspecified (HCC) Peripheral vascular disease, unspecified [facility] Low sodium levels- Primary Hyposmolality and/or hyponatremia Mathew infection Candidiasis of unspecified site Mixed hyperlipidemia Primary hypertension Unspecified essential hypertension Controlled type 2 diabetes mellitus without complication, with long-term current use of insulin (Multi) Acquired hypothyroidism Unspecified hypothyroidism Intellectual functioning disability Unspecified mental retardation 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 documented in this encounter [facility] Work Phone: Evaluation note* Diagnosis Primary hypertension- Primary Unspecified essential hypertension Other fatigue documented in this encounter [facility] Work Phone: Evaluation note* Diagnosis Altered mental status, unspecified altered mental status type- Primary Altered mental status, unspecified altered mental status type Severe dehydration Dehydration Hypercalcemia Lactic acidosis Acidosis Hypernatremia Hyperosmolality and/or hypernatremia Intellectual functioning disability Unspecified mental retardation Abnormal intentional weight loss Seizures (Multi) Other convulsions Developmental delay Unspecified delay in development documented in this encounter [facility] Work Phone: Evaluation note* Diagnosis Hyponatremia- Primary Hyposmolality and/or hyponatremia Primary hypertension Unspecified essential hypertension Mixed hyperlipidemia Acquired hypothyroidism Unspecified hypothyroidism Controlled type 2 diabetes mellitus without complication, without long-term current use of insulin (Multi) 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 Seizures (Multi) Other convulsions Intellectual functioning disability Unspecified mental retardation Developmental delay Unspecified delay in development Altered mental status, unspecified altered mental status type documented in this encounter [facility] Work Phone: Evaluation note* Diagnosis Angioedema of tongue- Primary Angioedema of tongue Hyponatremia Hyposmolality and/or hyponatremia documented in this encounter [facility] Work Phone: Evaluation note* Diagnosis Primary hypertension- Primary Unspecified essential hypertension HSV infection Herpes simplex without mention of complication documented in this encounter [facility] Work Phone: Evaluation note* Diagnosis Status post insertion of percutaneous endoscopic gastrostomy (PEG) tube (HCC)- Primary On tube feeding diet Hyponatremia Hyposmolality and/or hyponatremia Primary hypertension Unspecified essential hypertension Type 2 diabetes mellitus without complication, with long-term current use of insulin (HCC) Mental disability Unspecified mental retardation Seizures (HCC) Other convulsions Hypothyroidism, unspecified type [facility] Diagnosis Status post insertion of percutaneous endoscopic gastrostomy (PEG) tube (HCC)- Primary On tube feeding diet Hyponatremia Hyposmolality and/or hyponatremia Primary hypertension Unspecified essential hypertension Type 2 diabetes mellitus without complication, with long-term current use of insulin (HCC) Mental disability Unspecified mental retardation Seizures (HCC) Other convulsions Hypothyroidism, unspecified type [facility] Diagnosis Status post insertion of percutaneous endoscopic gastrostomy (PEG) tube (HCC)- Primary On tube feeding diet Hyponatremia Hyposmolality and/or hyponatremia Primary hypertension Unspecified essential hypertension Type 2 diabetes mellitus without complication, with long-term current use of insulin (HCC) Mental disability Unspecified mental retardation Seizures (HCC) Other convulsions Hypothyroidism, unspecified type Hyponatremia Hyposmolality and/or hyponatremia Type 2 diabetes mellitus without complication, with long-term current use of insulin (HCC) [facility] Diagnosis Status post insertion of percutaneous endoscopic gastrostomy (PEG) tube (HCC)- Primary On tube feeding diet Hyponatremia Hyposmolality and/or hyponatremia Primary hypertension Unspecified essential hypertension Type 2 diabetes mellitus without complication, with long-term current use of insulin (HCC) Mental disability Unspecified mental retardation Seizures (HCC) Other convulsions Hypothyroidism, unspecified type Hyponatremia- Primary Hyposmolality and/or hyponatremia Primary hypertension Unspecified essential hypertension [facility] Diagnosis Status post insertion of percutaneous endoscopic gastrostomy (PEG) tube (HCC)- Primary On tube feeding diet Hyponatremia Hyposmolality and/or hyponatremia Primary hypertension Unspecified essential hypertension Type 2 diabetes mellitus without complication, with long-term current use of insulin (HCC) Mental disability Unspecified mental retardation Seizures (HCC) Other convulsions Hypothyroidism, unspecified type Hyponatremia- Primary Hyposmolality and/or hyponatremia Primary hypertension Unspecified essential hypertension Onychodystrophy- Primary Other specified disease of nail Peripheral vascular disease, unspecified [facility]* Diagnosis Status post insertion of percutaneous endoscopic gastrostomy (PEG) tube (HCC)- Primary On tube feeding diet Hyponatremia Hyposmolality and/or hyponatremia Primary hypertension Unspecified essential hypertension Type 2 diabetes mellitus without complication, with long-term current use of insulin (HCC) Mental disability Unspecified mental retardation Seizures (HCC) Other convulsions Hypothyroidism, unspecified type Hyponatremia- Primary Hyposmolality and/or hyponatremia Primary hypertension Unspecified essential hypertension Nonintractable epilepsy without status epilepticus, unspecified epilepsy type (HCC)- Primary Primary hypertension Unspecified essential hypertension [facility]* Diagnosis Status post insertion of percutaneous endoscopic gastrostomy (PEG) tube (HCC)- Primary On tube feeding diet Hyponatremia Hyposmolality and/or hyponatremia Primary hypertension Unspecified essential hypertension Type 2 diabetes mellitus without complication, with long-term current use of insulin (HCC) Mental disability Unspecified mental retardation Seizures (HCC) Other convulsions Hypothyroidism, unspecified type Hyponatremia- Primary Hyposmolality and/or hyponatremia Primary hypertension Unspecified essential hypertension Hyponatremia [E87.1]- Primary Hyposmolality and/or hyponatremia Type 2 diabetes mellitus without complication, unspecified whether fdc insulin use (HCC) [E11.9] Long-term insulin use (HCC) [Z79.4] documented [facility]* Diagnosis Status post insertion of percutaneous endoscopic gastrostomy (PEG) tube (HCC)- Primary On tube feeding diet Hyponatremia Hyposmolality and/or hyponatremia Primary hypertension Unspecified essential hypertension Type 2 diabetes mellitus without complication, with long-term current use of insulin (HCC) Mental disability Unspecified mental retardation Seizures (HCC) Other convulsions Hypothyroidism, unspecified type Hyponatremia- Primary Hyposmolality and/or hyponatremia Primary hypertension Unspecified essential hypertension Primary hypertension- Primary Unspecified essential hypertension [facility]* Diagnosis Status post insertion of percutaneous endoscopic gastrostomy (PEG) tube (HCC)- Primary On tube feeding diet Hyponatremia Hyposmolality and/or hyponatremia Primary hypertension Unspecified essential hypertension Type 2 diabetes mellitus without complication, with long-term current use of insulin (HCC) Mental disability Unspecified mental retardation Seizures (HCC) Other convulsions Hypothyroidism, unspecified type Hyponatremia- Primary Hyposmolality and/or hyponatremia Primary hypertension Unspecified essential hypertension Primary hypertension- Primary Unspecified essential hypertension Primary hypertension Unspecified essential hypertension [facility]* Diagnosis Type 2 diabetes mellitus without retinopathy (HCC)- Primary Type II or unspecified type diabetes mellitus without mention of complication, not stated as uncontrolled Combined forms of age-related cataract of both eyes Other and combined forms of senile cataract Exotropia of right eye Exotropia, unspecified Myopia of both eyes Myopia Presbyopia documented in this encounter [facility] note* Diagnosis Status post insertion of percutaneous endoscopic gastrostomy (PEG) tube (HCC)- Primary On tube feeding diet Hyponatremia Hyposmolality and/or hyponatremia Primary hypertension Unspecified essential hypertension Type 2 diabetes mellitus without complication, with long-term current use of insulin (HCC) Mental disability Unspecified mental retardation Seizures (HCC) Other convulsions Hypothyroidism, unspecified type Hyponatremia- Primary Hyposmolality and/or hyponatremia Primary hypertension Unspecified essential hypertension Primary hypertension- Primary Unspecified essential hypertension At risk for tuberculosis- Primary Other specified conditions influencing health status [facility] Diagnosis PEG tube malfunction (Multi)- Primary S/P percutaneous endoscopic gastrostomy (PEG) tube placement (Multi) Seizures (Multi) Other convulsions documented in this encounter [facility] Work Phone: Evaluation note* Diagnosis S/P percutaneous endoscopic gastrostomy (PEG) tube placement (Multi) Seizures (Multi) Other convulsions documented in this encounter [facility] Work Phone: Evaluation note* Diagnosis Status post insertion of percutaneous endoscopic gastrostomy (PEG) tube (HCC)- Primary On tube feeding diet Hyponatremia Hyposmolality and/or hyponatremia Primary hypertension Unspecified essential hypertension Type 2 diabetes mellitus without complication, with long-term current use of insulin (HCC) Mental disability Unspecified mental retardation Seizures (HCC) Other convulsions Hypothyroidism, unspecified type Hyponatremia- Primary Hyposmolality and/or hyponatremia Primary hypertension Unspecified essential hypertension Primary hypertension- Primary Unspecified essential hypertension Primary hypertension Unspecified essential hypertension [facility] Diagnosis Status post insertion of percutaneous endoscopic gastrostomy (PEG) tube (HCC)- Primary On tube feeding diet Hyponatremia Hyposmolality and/or hyponatremia Primary hypertension Unspecified essential hypertension Type 2 diabetes mellitus without complication, with long-term current use of insulin (HCC) Mental disability Unspecified mental retardation Seizures (HCC) Other convulsions Hypothyroidism, unspecified type Hyponatremia- Primary Hyposmolality and/or hyponatremia Primary hypertension Unspecified essential hypertension Primary hypertension- Primary Unspecified essential hypertension Primary hypertension Unspecified essential hypertension Onychodystrophy- Primary Other specified disease of nail [facility]* Diagnosis Onset Date Resolution Status Admit Date Epilepsy acute January 31 10:33am [facility] Work Phone: History of Present illness Narrative* Mik presents to outpatient OT services this date with impaired self feeding skills at this time. Ptpreviously using large built up handle curtain stretcher assembler for utensil and has had reduced active participation with gripping utensil. Pt is accompanied by nurse at this time who reports increased difficulty with assisting pt with feeding d/t the built up handle and the increased level of physical assist needed. Pt demonstrates ability to grasp regular handle utensil with [place] assist this date. Nurse demos good understanding of education and recommended modification of regular curtain stretcher assembler spoon handle. Pt also provided removable built up curtain stretcher assembler to be used as needed that is smaller than previous handle curtain stretcher assembler. Pt also could benefit from coated utensil on days with less active participation d/t tactile cues needed orally and this adaptation would maintain joint/soft tissue integrity. Pt also noted to have some signs and symptoms of shoulder edema at this time, pt provided tubigrip size E to facilitate edema management for joint integrity of LUE d/t less active use of UE. Nurse demonstrates good carryover of recommendations and precautions. Nurse denies additional need for practice with recommended device at this time and demos good understanding to call with any quesitons/concerns. * Interdisciplinary Team Communication: occupational therapy . * Clinical Presentation: stable and/or uncomplicated characteristics * Level of Complexity: low * Problems To Be Addressed: decreased ADL performance, decreased knowledge of assisted device use, decreased knowledge of HEP, decreased ROM/joint mobility and fall risk. [facility] Work Phone: Hospital Discharge instructions* Follow Up Appointment 1:Physician/Dept/Service: Primary Care PhysicianReason for Referral: referral for neurology consultCall to Schedule in: [address] [facility]* Attachments The following attachments cannot be sent through Care Everywhere. * Angioedema Dis[facility] Instructions (Lao) [facility] [employer] for referral (narrative)* Consultation (Routine) - Authorized Specialty Diagnoses / Procedures Referred By Contac t Referred To Contact Primary Care Procedures Follow Up In Primary Care - Established Shanda Huizar DO [address] [facility] Physician [place] [id number] Referral ID Status Reason Start Date Expiration Date V isits Requested Visits Authorized [id number] Authorized 07/16/2023 07/15/2024 1 1 * Medications - Pending Review Specialty Diagnoses / Procedures Referred By Contac t Referred To Contact Diagnoses Hypothyroidism, unspecified type [facility]anda Huizar DO [address] [facility] [place] [address] Referral ID Status Reason Start Date Expiration Date V isits Requested Visits Authorized [id number] Pending Review 1 1 [facility] Work Phone: [employer] for referral (narrative)* Consultation (Routine) - Authorized Specialty Diagnoses / Procedures Referred By Contac t Referred To Contact Primary Care Procedures Follow Up In Primary Care - Established Shanda Huizar DO [address] [facility] [place] [address] Phone: tel: fax: Referral ID Status Reason Start Date Expiration Date V isits Requested Visits Authorized [id number] Authorized 06/27/2024 06/27/2025 1 1 [facility] Work Phone: [employer] for referral (narrative)No reason for referral [facility] Work [facility]: Reason for visit Narrative* Consultation (Routine) - Authorized Specialty Diagnoses / Procedures Referred By Contac t Referred To Contact Primary Care Procedures Follow Up In Primary Care - Established Shanda Huizar DO [address] [facility] [place] [address] Phone: tel: fax: Referral ID Status Reason Start Date Expiration Date V isits Requested Visits Authorized [id number] Authorized 06/27/2024 06/27/2025 1 1 [facility] Work Phone: [employer] for visit Narrative* Evaluate and Treat (Routine) - Authorized Specialty Diagnoses / Procedures Referred By Contac t Referred To Contact Nutrition Diagnoses Hyponatremia Type 2 diabetes mellitus without complication, with long-term current use of insulin (HCC) Tremayne Andrade, DO [address] [address] Phone: tel: fax: [facility] [address] [place] [id number] Phone: tel: fax: Referral ID Status Reason Start Date Expiration Date V isits Requested Visits Authorized [id number] Authorized 09/19/2024 09/19/2025 2 2 [facility] for visit Narrative* Evaluate and Treat (Routine) - Closed Specialty Diagnoses / Procedures Referred By Contac t Referred To Contact Nutrition Diagnoses Hyponatremia Type 2 diabetes mellitus without complication, with long-term current use of insulin ([facility]) Tremayne Andrade DO [address] [address] Phone: tel: fax: [facility] [address] [place] [address] Phone: tel: fax: Referral ID Status Reason Start Date Expiration Date Visits Re quested Visits Authorized [id number] Closed 09/19/2024 09/19/2025 2 2 [facility] for visit Narrative* Endoscopy (Routine) - Authorized Specialty Diagnoses / Procedures Referred By Contact Referred To Contact Gastroenterology Diagnoses S/P percutaneous endoscopic gastrostomy (PEG) tube placement (Multi) Seizures (Multi) Procedures Esophagogastroduodenoscopy (EGD) ID ESOPHAGOGASTRODUODENOSCOPY TRANSORAL DIAGNOSTIC ID EGD TRANSORAL BIOPSY SINGLE/MULTIPLE Clara Jones, DO [address] [facility], [facility] [address] [place] [address] Phone: tel:[phone] fax:[phone] Referral ID Status Reason Start Date Expiration Date V isits Requested Visits Authorized [id number] Authorized 11/28/2024 11/28/2025 1 1 [facility] Work Phone: Assessments Diagnosis Type 2 diabetes mellitus wit hout complication, with long-term current use of insulin (HCC) - Primary Hypothyroidism, unspecified type Diagnosis Diabetic autonomic neuropath y associated with type 2 diabetes mellitus (HCC) - Primary Type II or unspecified type diabetes mellitus with neurological manifestations, not stated as uncontrolled Hypothyroidism, unspecified type Diagnosis Type 2 diabetes mellitus without complication, with long-term current use of insulin (HCC)- Primary Hypothyroidism, unspecified type Diagnosis Diabetic autonomic neuropathy associated with type 2 diabetes mellitus (HCC) Type II or unspecified type diabetes mellitus with neurological manifestations, not stated as uncontrolled Hypothyroidism, unspecified type Diagnosis Diabetic autonomic neuropathy associated with type 2 diabetes mellitus (HCC) Type II or unspecified type diabetes mellitus with neurological manifestations, not stated as uncontrolled Hypothyroidism, unspecified type Summary Purpose Family History Relationship Condition Age at Onset Recorded Date/T zee Not Specified Family history unknown Unknown Advance Directives Documents on File Type Date Recorded Patient Clinical Staff Rn Expl anation Advance Directives and Living Will Date Activated Date Inactivated Comments 04/25/2024 2:15 PM Question Answer Comments Plan of Care: Code Status Discussion Completed Decision Maker: Patient Date Activated Date Inactivated Comments 04/18/2024 7:00 PM 04/25/2024 2:15 PM Question Answer Comments Plan of Care: Code Status Discussion Completed Decision Maker: Proxy Date Activated Date Inactivated Comments 04/18/2024 1:47 PM 04/18/2024 7:00 PM Question Answer Comments Plan of Care: Code Status Discussion Not Compl eted Decision Maker: Provider Rationale: Patient condition does not warra nt discussion Date Activated Date Inactivated Comments 04/18/2024 1:47 PM 04/18/2024 1:47 PM Question Answer Comments Plan of Care: Code Status Discussion Not Compl eted Decision Maker: Provider Rationale: Patient condition does not warra nt discussion Date Activated Date Inactivated Comments 04/25/2024 2:15 PM Question Answer Comments Plan of Care: Code Status Discussion Completed Decision Maker: Patient Date Activated Date Inactivated Comments 04/18/2024 7:00 PM 04/25/2024 2:15 PM Question Answer Comments Plan of Care: Code Status Discussion Completed Decision Maker: Proxy Date Activated Date Inactivated Comments 04/18/2024 1:47 PM 04/18/2024 7:00 PM Question Answer Comments Plan of Care: Code Status Discussion Not Compl eted Decision Maker: Provider Rationale: Patient condition does not warra nt discussion Date Activated Date Inactivated Comments 04/18/2024 1:47 PM 04/18/2024 1:47 PM Question Answer Comments Plan of Care: Code Status Discussion Not Compl eted Decision Maker: Provider Rationale: Patient condition does not warra nt discussion Date Activated Date Inactivated Comments 08/30/2024 11:55 AM Question Answer Comments Plan of Care: Code Status Discussion Not Compl eted Decision Maker: Provider Rationale: Patient condition does not warra nt discussion Date Activated Date Inactivated Comments 04/25/2024 2:15 PM 08/30/2024 11:55 AM Question Answer Comments Plan of Care: Code Status Discussion Completed Decision Maker: Patient Date Activated Date Inactivated Comments 04/18/2024 7:00 PM 04/25/2024 2:15 PM Question Answer Comments Plan of Care: Code Status Discussion Completed Decision Maker: Proxy Date Activated Date Inactivated Comments 04/18/2024 1:47 PM 04/18/2024 7:00 PM Date Activated Date Inactivated Comments 04/18/2024 1:47 PM 04/18/2024 1:47 PM Question Answer Comments Plan of Care: Code Status Discussion Not Compl eted Decision Maker: Provider Rationale: Patient condition does not warra nt discussion Documents on File Type Date Recorded Patient Clinical Staff Rn Expl anation Guardianship Papers 08/01/2024 Darcy Gibson [employer] Documents on File Type Date Recorded Patient Clinical Staff Rn Expl anation Guardians[employer] Papers 08/01/2024 Darcy Gibson [employer] Date Activated Date Inactivated Comments 08/30/2024 11:55 AM Question Answer Comments Plan of Care: Code Status Discussion Not Compl eted Decision Maker: Provider Rationale: Patient condition does not warra nt discussion Date Activated Date Inactivated Comments 04/25/2024 2:15 PM 08/30/2024 11:55 AM Question Answer Comments Plan of Care: Code Status Discussion Completed Decision Maker: Patient Date Activated Date Inactivated Comments 04/18/2024 7:00 PM 04/25/2024 2:15 PM Question Answer Comments Plan of Care: Code Status Discussion Completed Decision Maker: Proxy Date Activated Date Inactivated Comments 04/18/2024 1:47 PM 04/18/2024 7:00 PM Date Activated Date Inactivated Comments 04/18/2024 1:47 PM 04/18/2024 1:47 PM Question Answer Comments Plan of Care: Code Status Discussion Not Compl eted Decision Maker: Provider Rationale: Patient condition does not warra nt discussion History of Present Illness * Lindsay Echols CNP - 11/24/2018 11:13 AM EDT Patient ID: Mik Shelton is a 73 y.o. female 1945 Subjective: Mik Shelton presents for follow-up of Type 2 diabetes Patient has had diabetes for 5 years. Diagnosed in 2012 Ms. Shelton is a 73-year-old female patient presents to our office with her caregiver for follow-up of type 2 diabetes. The patient has a developmental delay and lives in a [place] [facility]. She is nonverbal. Her caregiver states that she has not had any issues since her last visit with us about 6 months ago. [place] [facility] [place] faxes our office blood sugar readings every 2 weeks and we make adjustments as needed. Currently taking: Metformin 2-500 mg twice daily Humalog insulin: 2 units at breakfast; 0 units at lunch; 2 units at supper Hold if BG <80 or patient does not eat the majority of her meal. Humalog Sliding Scale: If blood sugar 250-300 give 1 extra unit humalog SQ at breakfast and dinner If blood sugar > 300 give 2 extra units at breakfast and dinner Current Outpatient Medications Medication Sig Dispense Refill acetaminophen (TYLENOL) 325 MG tablet Take 325 mg by mouth every 4 (four) hours as needed. acetaminophen (TYLENOL) 650 MG suppository Insert into the rectum. ARIPiprazole (ABILIFY) 20 MG tablet Take 20 mg by mouth daily. bisacodyl (DULCOLAX) 10 mg suppository Insert 10 mg into the rectum daily as needed. calcium-vitamin D (OS-EMEKA +D) 500 mg(1,250mg) -200 unit per tablet take by Oral route. carBAMazepine (TEGretol) 100 mg chewable tablet Chew and Swallow 2 (two) times a day. cyanocobalamin (vitamin B-12) 1000 MCG tablet Take 1,000 mcg by mouth daily . diazepam (VALIUM) 2 MG tablet Take 0.5 tablet by oral route every morning and a full tablet every evening. hydrOXYzine (ATARAX) 50 MG tablet Take 50 mg by mouth nightly . insulin lispro (HumaLOG) 100 unit/mL injection Use as directed, approx 10 units per day. (Patient taking differently: Use as directed, approx 10 units per day 2 units at breakfast and dinner .) 10 mL 12 levothyroxine (SYNTHROID, LEVOTHROID) 50 MCG tablet Take 50 mcg by mouth daily. lisinopril (PRINIVIL,ZESTRIL) 30 MG tablet 30 mg daily . lovastatin (MEVACOR) 20 MG tablet Take 20 mg by mouth nightly . metFORMIN (GLUCOPHAGE) 500 MG tablet Take 2 tablets by mouth 2 (two) times a day. mirtazapine (REMERON) 7.5 MG tablet Take 7.5 mg by mouth nightly . multivitamin (THERAGRAN) per tablet take 1 tablet by oral route every day with food. No current facility-administered medications for this visit. Current Hemoglobin A1C= 5.7% on 11/16/18 6.0% on 04/27 Weight trend: down 4# since last visit. Current diet: diabetic Current exercise: no regular exercise patient is in a motorized scooter 02/03 Current monitoring regimen: home blood tests - 3 times daily Home blood sugar records: FBG 70-135, Pre-dinner 90-154, HS 96-145, 238 Any episodes of hypoglycemia? no Is patient on BRYANT inhibitor or angiotensin II receptor nena? yes BRYANT: Lisinopril Review of Systems: Review of Systems Constitutional: Negative for appetite change, fatigue and unexpected weight change. Eyes: Negative for visual disturbance. Respiratory: Negative for cough, chest tightness, shortness of breath and wheezing. Cardiovascular: Negative for chest pain, palpitations and leg swelling. Gastrointestinal: Negative for abdominal pain, constipation, diarrhea, nausea and vomiting. Endocrine: Negative for polydipsia, polyphagia and polyuria. Genitourinary: Negative for dysuria and frequency. Musculoskeletal: Negative for arthralgias, gait problem and myalgias. Neurological: Negative for weakness, numbness and headaches. Caregiver denies any current symptoms or issues. The following portions of the patient's history were reviewed and updated as appropriate: allergies, current medications, past family history, past medical history, past social history, past surgicalhistory and problem list. Objective: BP 109/73 Pulse 89 Ht 5' 2 Wt 57.2 kg (126 lb) BMI 23.05 kg/m Weight stable at F Physical Exam: Physical Exam General: appears stated age and cooperative patient in a motor scooter, she is nonverbal Eyes: conjunctivae/corneas clear. PERRL, EOM's intact. Neck: no adenopathy, supple, symmetrical, trachea midline. Thyroid: No thyromegaly appreciated Lung: clear to auscultation bilaterally Heart: regular rate and rhythm, S1, S2 normal, no murmur, click, rub or gallop Extremities: extremities normal, atraumatic, no cyanosis , +edema, both ankles Feet: Dry skin, No foot check was done today as the patient just recently saw Dr. Tony in his office about 1 month ago. Monofilament exam not assessed, Neuro: Limited communication., Patient is nonverbal Lab Review 11/16/18 Hemoglobin A1c 5.7% Creatinine 0.80, GFR greater than 60 AST 16, ALT 21 TSH 2.78, free T4 0.76 WBC 8.9, hemoglobin 10.7, hematocrit 32.1, platelets 339 Date: 04/20/18 *labs reviewed 11/24/18 Hgb A1c: 6.0% Creat: 0.6; eGFR: >60 AST: 34; ALT: 23 K: 4.3 Tchol: 133; Tri ; HDL: 48 ; LDL: 61 TSH: 2.53 ; FreeT4: 1.04 10/13/17 HgbA1C 5.4% TSH 1.30 Free T4 1.1 Lipid Panel Total Cholesterol 143 Triglycerides 80 HDL 65 LDL 62 Microal/creat ratio - Serum Creatinine 0.46 Hepatic Enzymes AST 17 ALT 30 Last CBC - 04/14/17 Hgb A1c: 5.5% Creat: 0.51 AST: 21; ALT: 32 K: 4.1 CBC: WBC:7.4; Hgb: 12.9; Hct: 36.9; Plt: 361 TSH: 1.20 ; FreeT4: 1.2 10/13/16 Hgb A1c: 6.2% Creat: 0.58, K 4.8 AST: 23, ALT: 28 CBC: WBC 9.4, Hgb 11.4, Hct 34.5, Plat 443 TSH:1.559 ; FreeT4: 1.33 09/08/16 T Chol 138, Trig 92, HDL 58, LDL 62 04/10/16 Hgb A1c: 5.8% Cr 0.62, K 4.3 AST 23, ALT 36 T Chol 189, trig 171, HDL 53, LDL 102 Assessment: Dx: SNOMED CT(R) 1. Type 2 diabetes mellitus without complication, with long-term current use of insulin (HCC) TYPE 2 DIABETES MELLITUS WITHOUT COMPLICATION Hemoglobin A1c Comprehensive Metabolic Panel Lipid Panel CBC and Differential 2. Hypothyroidism, unspecified type HYPOTHYROIDISM Hemoglobin A1c Comprehensive Metabolic Panel Lipid Panel T4, Free TSH CBC and Differential Type 2 diabetes, under good control Mik Shelton presents for follow-up of Type 2 diabetes Patient is currently managed with: Metformin and insulin. BG reviewed; stable BG. PLAN: CPM. Retinopathy: Negative Exam within last 12 months: yes Date: Oct 06, 2018. Went to [facility] Nephropathy: Negative Creat: 8.0 GFR 60, on lisinopril Mialb/creat ratio: not available Peripheral Neuropathy: Negative unable to communicate sxs Autonomic Neuropathy: Unknown Patient aware of lows. Pt unable to communicate Hyperlipidemia: Positive Currently taking: lovastatin (Mevacore). LFT's WNL on 11/16/2018 Tchol: 133; Tri ; HDL: 48 ; LDL: 61 04/20/18 Hypertension: Positive. Currently taking: lisinopril BP: 109/73 Cardiac: Negative . Negative cardiac hx Vascular: Positive edema, mild dependent Feet: Negative sores or lesions at this time. Last foot exam: sees Dr. Tony in [place], Last appointment 09/15/18 Thyroid: Positive , on levothyroxine 50 mcg daily. TSH: 2.78 ; FreeT4: 0.76 11/16/18 plan: Continue current management Other: Plan: 1. Rx changes: none Humalog 2 units at breakfast, 0 units lunch, 2 units at dinner Metformin 2-500 mg twice daily Humalog Sliding Scale: If blood sugar 250-300 give 1 extra unit humalog SQ at breakfast and dinner If blood sugar > 300 give 2 extra units at breakfast and dinner Continue current regimen. They will continue to fax her blood sugar readings every 2 weeks and willmake adjustments accordingly. Continue current dose of levothyroxine. Will recheck TFTs prior to next appointment in 6 months 2. Education: Reviewed ABCs of diabetes management (respective goals in parentheses): A1C (7.0-8.0), blood pressure (<130/80), and cholesterol (LDL <100). 3. Compliance at present is estimated to be good. Efforts to improve compliance (if necessary) willbe directed at regular blood sugar monitorin times daily. 4. Follow up: 6 months 5. Record blood sugar readings as instructed. Call if BG consistently <70 or >250. [phone] Check blood sugar 3 times daily. 6. Bring blood sugar meter to follow up appointment. Orders Placed This Encounter Procedures Hemoglobin A1c Comprehensive Metabolic Panel Lipid Panel T4, Free TSH CBC and Differential Electronically signed by Lindsay LOPEZ 11/24/1910:34 AM documented in this encounter* Kaykay Bess CNP - 08/22/2019 3:00 PM EST Patient ID: Mik Shelton is a 74 y.o. female 1945 Subjective: Mik Shelton presents for follow-up of Type 2 diabetes Patient has had diabetes for 5 years. Diagnosed in 2012 Ms. Shelton is a 73-year-old female patient presents to our office with her caregiver for follow-up of type 2 diabetes. The patient has a developmental delay and lives in a [place] [facility]. She is nonverbal. Her caregiver states that she has not had any issues since her last visit with us about 10 months ago. The [place] [facility] faxes our office blood sugar readings every 2 weeks and we make adjustments as needed. Currently taking: Metformin 2-500 mg once daily Humalog insulin: 2 units at breakfast; 0 units at lunch; 2 units at supper Hold if BG <80 or patient does not eat the majority of her meal. Humalog Sliding Scale: If blood sugar 250-300 give 1 extra unit humalog SQ at breakfast and dinner If blood sugar > 300 give 2 extra units at breakfast and dinner Current Outpatient Medications Medication Sig Dispense Refill acetaminophen (TYLENOL) 325 MG tablet Take 325 mg by mouth every 4 (four) hours as needed. acetaminophen (TYLENOL) 650 MG suppository Insert into the rectum. ARIPiprazole (ABILIFY) 20 MG tablet Take 20 mg by mouth daily. bisacodyl (DULCOLAX) 10 mg suppository Insert 10 mg into the rectum daily as needed. calcium-vitamin D (OS-EMEKA +D) 500 mg(1,250mg) -200 unit per tablet take by Oral route. carBAMazepine (TEGretol) 100 mg chewable tablet Chew and Swallow 2 (two) times a day. cyanocobalamin (vitamin B-12) 1000 MCG tablet Take 1,000 mcg by mouth daily . diazepam (VALIUM) 2 MG tablet Take 0.5 tablet by oral route every morning and a full tablet every evening. hydrOXYzine (ATARAX) 50 MG tablet Take 50 mg by mouth nightly . insulin lispro (HumaLOG) 100 unit/mL injection Use as directed, approx 10 units per day. (Patient taking differently: Use as directed, approx 10 units per day 2 units at breakfast and dinner .) 10 mL 12 levothyroxine (SYNTHROID, LEVOTHROID) 50 MCG tablet Take 50 mcg by mouth daily. lisinopril (PRINIVIL,ZESTRIL) 30 MG tablet 30 mg daily . lovastatin (MEVACOR) 20 MG tablet Take 20 mg by mouth nightly . metFORMIN (GLUCOPHAGE) 500 MG tablet Take 2 tablets by mouth daily with breakfast . multivitamin (THERAGRAN) per tablet take 1 tablet by oral route every day with food. mirtazapine (REMERON) 7.5 MG tablet Take 7.5 mg by mouth nightly . No current facility-administered medications for this visit. Weight trend: d Current diet: diabetic Current exercise: no regular exercise patient is in a motorized scooter 02/03 Current monitoring regimen: home blood tests - 3 times daily Home blood sugar records: FBG 70-135, Pre-dinner 90-154, HS 96-145, 238 Any episodes of hypoglycemia? no Is patient on BRYANT inhibitor or angiotensin II receptor nena? yes BRYANT: Lisinopril Review of Systems: Review of Systems Constitutional: Negative for appetite change, fatigue and unexpected weight change. Eyes: Negative for visual disturbance. Respiratory: Negative for cough, chest tightness, shortness of breath and wheezing. Cardiovascular: Negative for chest pain, palpitations and leg swelling. Gastrointestinal: Negative for abdominal pain, constipation, diarrhea, nausea and vomiting. Endocrine: Negative for polydipsia, polyphagia and polyuria. Genitourinary: Negative for dysuria and frequency. Musculoskeletal: Negative for arthralgias, gait problem and myalgias. Neurological: Negative for weakness, numbness and headaches. Caregiver denies any current symptoms or issues. The following portions of the patient's history were reviewed and updated as appropriate: allergies, current medications, past family history, past medical history, past social history, past surgicalhistory and problem list. Objective: There were no vitals taken for this visit.Weight stable at F Physical Exam: General: appears stated age and cooperative patient in a motor scooter, she is nonverbal Eyes: conjunctivae/corneas clear. PERRL, EOM's intact. Neck: no adenopathy, supple, symmetrical, trachea midline. Thyroid: No thyromegaly appreciated Lung: clear to auscultation bilaterally Heart: regular rate and rhythm, S1, S2 normal, no murmur, click, rub or gallop Extremities: extremities normal, atraumatic, no cyanosis , +edema, both ankles Feet: Dry skin, No foot check was done today as the patient just recently saw Dr. Tony in his office about 1 month ago. Monofilament exam not assessed, Neuro: Limited communication., Patient is nonverbal Lab Review 08/05/19 *labs reviewed 08/22/19 Hgb A1c: 6.2% Creat: 0.60; eGFR: >60 AST: 16; ALT: 21 K: 4.4 CBC: WBC:10; Hgb: 11.7; Hct: 35.1; Plt: 364 Tchol: 161; Tri ; HDL: 73 ; LDL: 70 FreeT4: 0.91 11/16/18 Hemoglobin A1c 5.7% Creatinine 0.80, GFR greater than 60 AST 16, ALT 21 TSH 2.78, free T4 0.76 WBC 8.9, hemoglobin 10.7, hematocrit 32.1, platelets 339 Date: 04/20/18 Hgb A1c: 6.0% Creat: 0.6; eGFR: >60 AST: 34; ALT: 23 K: 4.3 Tchol: 133; Tri ; HDL: 48 ; LDL: 61 TSH: 2.53 ; FreeT4: 1.04 10/13/17 HgbA1C 5.4% TSH 1.30 Free T4 1.1 Lipid Panel Total Cholesterol 143 Triglycerides 80 HDL 65 LDL 62 Microal/creat ratio - Serum Creatinine 0.46 Hepatic Enzymes AST 17 ALT 30 Last CBC - 04/14/17 Hgb A1c: 5.5% Creat: 0.51 AST: 21; ALT: 32 K: 4.1 CBC: WBC:7.4; Hgb: 12.9; Hct: 36.9; Plt: 361 TSH: 1.20 ; FreeT4: 1.2 10/13/16 Hgb A1c: 6.2% Creat: 0.58, K 4.8 AST: 23, ALT: 28 CBC: WBC 9.4, Hgb 11.4, Hct 34.5, Plat 443 TSH:1.559 ; FreeT4: 1.33 09/08/16 T Chol 138, Trig 92, HDL 58, LDL 62 04/10/16 Hgb A1c: 5.8% Cr 0.62, K 4.3 AST 23, ALT 36 T Chol 189, trig 171, HDL 53, LDL 102 Assessment: Dx: 1. Diabetic autonomic neuropathy associated with type 2 diabetes mellitus (HCC) 2. Hypothyroidism, unspecified type Type 2 diabetes, under good control Mik Shelton presents for follow-up of Type 2 diabetes Patient is currently managed with: Metformin and insulin. BG reviewed; stable BG. PLAN: CPM. Retinopathy: Negative Exam within last 12 months: yes Date: Oct 06, 2018. Went to [facility] Nephropathy: Negative Creat: 0.60 GFR >60, on lisinopril Mialb/creat ratio: not available Peripheral Neuropathy: Negative unable to communicate sxs Autonomic Neuropathy: Unknown Patient aware of lows. Pt unable to communicate Hyperlipidemia: Positive Currently taking: lovastatin (Mevacore). LFT's WNL on 11/16/2018 Tchol: 133; Tri ; HDL: 48 ; LDL: 61 04/20/18 Hypertension: Positive. Currently taking: lisinopril Cardiac: Negative . Negative cardiac hx Vascular: Positive edema, mild dependent Feet: Negative sores or lesions at this time. Last foot exam: sees Dr. Tony in [place], Last appointment 09/15/18 Thyroid: Positive , on levothyroxine 50 mcg daily. TSH: 2.78 ; FreeT4: 0.76 11/16/18 plan: Continue current management Other: Plan: 1. Rx changes: none Humalog 2 units at breakfast, 0 units lunch, 2 units at dinner if eats whole meal Metformin 2-500 mg once daily Humalog Sliding Scale: If blood sugar 250-300 give 1 extra unit humalog SQ at breakfast and dinner If blood sugar > 300 give 2 extra units at breakfast and dinner Continue current regimen. They will continue to fax her blood sugar readings every 2 weeks and willmake adjustments accordingly. Continue current dose of levothyroxine. Will recheck TFTs prior to next appointment in 6 months 2. Education: Reviewed ABCs of diabetes management (respective goals in parentheses): A1C (7.0-8.0), blood pressure (<130/80), and cholesterol (LDL <100). 3. Compliance at present is estimated to be good. Efforts to improve compliance (if necessary) willbe directed at regular blood sugar monitorin times daily. 4. Follow up: 6 months 5. Record blood sugar readings as instructed. Call if BG consistently <70 or >250. [phone] Check blood sugar 3 times daily. 6. Bring blood sugar meter to follow up appointment. Orders Placed This Encounter Procedures Comprehensive Metabolic Panel CBC and Differential Hemoglobin A1c Lipid Panel TSH T4, Free Electronically Signed by: Kaykay Bess CNP 08/22/19 3:04 PM documented in this encounter* Kaykay Bess CNP - 02/27/2020 10:28 AM EDT Patient ID: Mik Shelton is a 74 y.o. female 1945 Subjective: Mik Shelton presents for follow-up of Type 2 diabetes Patient has had diabetes for 5 years. Diagnosed in 2012 Ms. Shelton is a 73-year-old female patient presents to our office with her caregiver for follow-up of type 2 diabetes. The patient has a developmental delay and lives in a [place] [facility]. She is nonverbal. Her caregiver states that she has not had any issues since her last visit with us about 6 months ago. The [place] [facility] faxes our office blood sugar readings every 2 weeks and we make adjustments as needed. Currently taking: Metformin 2-500 mg once daily Humalog insulin: 2 units at breakfast; 0 units at lunch; 2 units at supper Hold if BG <80 or patient does not eat the majority of her meal. Humalog Sliding Scale: If blood sugar 250-300 give 1 extra unit humalog SQ at breakfast and dinner If blood sugar > 300 give 2 extra units at breakfast and dinner Outpatient Medications Marked as Taking for the 02/27/20 encounter (Office Visit) with Kaykay Bess CNP: acetaminophen (TYLENOL) 325 MG tablet, Take 325 mg by mouth every 4 (four) hours as needed. acetaminophen (TYLENOL) 650 MG suppository, Insert into the rectum. alendronate (FOSAMAX) 70 mg/75 mL solution, Take 70 mg by mouth every 7 days Take in the morning with a full glass of water, on an empty stomach, and do not take anything else by mouth or lie down for the next 30 min. . ARIPiprazole (ABILIFY) 20 MG tablet, Take 20 mg by mouth daily. bisacodyl (DULCOLAX) 10 mg suppository, Insert 10 mg into the rectum daily as needed. carBAMazepine (TEGretol) 100 mg chewable tablet, Chew and Swallow 2 (two) times a day. cyanocobalamin (vitamin B-12) 1000 MCG tablet, Take 1,000 mcg by mouth daily . diazepam (VALIUM) 2 MG tablet, Take 0.5 tablet by oral route every morning and a full tablet every evening. hydrOXYzine (ATARAX) 50 MG tablet, Take 50 mg by mouth nightly . insulin lispro (HumaLOG) 100 unit/mL injection, Use as directed, approx 10 units per day. (Patient taking differently: Use as directed, approx 10 units per day 2 units at breakfast and dinner .) levothyroxine (SYNTHROID, LEVOTHROID) 50 MCG tablet, Take 50 mcg by mouth daily. lisinopril (PRINIVIL,ZESTRIL) 30 MG tablet, 30 mg daily . lovastatin (MEVACOR) 20 MG tablet, Take 20 mg by mouth nightly . metFORMIN (GLUCOPHAGE) 500 MG tablet, Take 2 tablets by mouth daily with breakfast . multivitamin (THERAGRAN) per tablet, take 1 tablet by oral route every day with food. Weight trend: Current diet: diabetic Current exercise: no regular exercise patient is in a motor[employer]erc[employer] scooter 02/03 Current monitoring regimen: home blood tests - 3 times daily Home blood sugar records: FBG 70-135, Pre-dinner 90-154, HS 96-145, 238 Any episodes of hypoglycemia? no Is patient on BRYANT inhibitor or angiotensin II receptor nena? yes BRYANT: Lisinopril Review of Systems: Review of Systems Constitutional: Negative for appetite change, fatigue and unexpected weight change. Eyes: Negative for visual disturbance. Respiratory: Negative for cough, chest tightness, shortness of breath and wheezing. Cardiovascular: Negative for chest pain, palpitations and leg swelling. Gastrointestinal: Negative for abdominal pain, constipation, diarrhea, nausea and vomiting. Endocrine: Negative for polydipsia, polyphagia and polyuria. Genitourinary: Negative for dysuria and frequency. Musculoskeletal: Negative for arthralgias, gait problem and myalgias. Neurological: Negative for weakness, numbness and headaches. Caregiver denies any current symptoms or issues. The following portions of the patient's history were reviewed and updated as appropriate: allergies, current medications, past family history, past medical history, past social history, past surgicalhistory and problem list. Objective: BP 144/73 Pulse 85 Ht 5' 2 BMI 23.05 kg/m Weight stable at [facility] Physical Exam: General: appears stated age and cooperative patient in a motor scooter, she is nonverbal Eyes: conjunctivae/corneas clear. PERRL, EOM's intact. Neck: no adenopathy, supple, symmetrical, trachea midline. Thyroid: No thyromegaly appreciated Lung: clear to auscultation bilaterally Heart: regular rate and rhythm, S1, S2 normal, no murmur, click, rub or gallop Extremities: extremities normal, atraumatic, no cyanosis , +edema, both ankles Feet: Dry skin, No foot check was done today as the patient just recently saw Dr. Tony in his office about 1 month ago. Monofilament exam not assessed, Neuro: Limited communication., Patient is nonverbal Lab Review 02/22/20 *labs reviewed 02/27/20 Hgb A1c: 6.1% Creat: 0.72; eGFR: >60 AST: 19; ALT: 26 K: 4.6 CBC: WBC:9.20; Hgb: 12.4; Hct: 37.5; Plt: 363 Tchol: 169; Tri ; HDL: 56 ; LDL: 90 TSH: 1.55 ; FreeT4: 0.84 08/05/19 Hgb A1c: 6.2% Creat: 0.60; eGFR: >60 AST: 16; ALT: 21 K: 4.4 CBC: WBC:10; Hgb: 11.7; Hct: 35.1; Plt: 364 Tchol: 161; Tri ; HDL: 73 ; LDL: 70 FreeT4: 0.91 11/16/18 Hemoglobin A1c 5.7% Creatinine 0.80, GFR greater than 60 AST 16, ALT 21 TSH 2.78, free T4 0.76 WBC 8.9, hemoglobin 10.7, hematocrit 32.1, platelets 339 Date: 04/20/18 Hgb A1c: 6.0% Creat: 0.6; eGFR: >60 AST: 34; ALT: 23 K: 4.3 Tchol: 133; Tri ; HDL: 48 ; LDL: 61 TSH: 2.53 ; FreeT4: 1.04 10/13/17 HgbA1C 5.4% TSH 1.30 Free T4 1.1 Lipid Panel Total Cholesterol 143 Triglycerides 80 HDL 65 LDL 62 Microal/creat ratio - Serum Creatinine 0.46 Hepatic Enzymes AST 17 ALT 30 Last CBC - 04/14/17 Hgb A1c: 5.5% Creat: 0.51 AST: 21; ALT: 32 K: 4.1 CBC: WBC:7.4; Hgb: 12.9; Hct: 36.9; Plt: 361 TSH: 1.20 ; FreeT4: 1.2 Assessment: Dx: 1. Diabetic autonomic neuropathy associated with type 2 diabetes mellitus (HCC) Comprehensive Metabolic Panel Hemoglobin A1c TSH T4, Free CBC and Differential Lipid Panel 2. Hypothyroidism, unspecified type Type 2 diabetes, under good control Mikgio Valdez Shelton presents for follow-up of Type 2 diabetes Patient is currently managed with: Metformin and insulin. BG reviewed; stable BG. PLAN: CPM. Retinopathy: Negative Exam within last 12 months: yes Date: Oct 06, 2018. Went to [facility] Nephropathy: Negative Creat: 0.72 GFR >60 02/22/20, on lisinopril Mialb/creat ratio: not available Peripheral Neuropathy: Negative unable to communicate sxs Autonomic Neuropathy: Unknown Patient aware of lows. Pt unable to communicate Hyperlipidemia: Positive Currently taking: lovastatin (Mevacore). LFT's WNL on 11/16/2018 Tchol: 169; Tri ; HDL: 56 ; LDL: 90 02/22/20 Hypertension: Positive. Currently taking: lisinopril BP: 144/73 Cardiac: Negative . Negative cardiac hx Vascular: Positive edema, mild dependent Feet: Negative sores or lesions at this time. Last foot exam: sees Dr. Tony in [place], Last appointment 09/15/18 Thyroid: Positive , on levothyroxine 50 mcg daily. TSH: 1.55 ; FreeT4: 0.84 7/15/20 plan: Continue current management Other: Plan: 1. Rx changes: none Humalog 2 units at breakfast, 0 units lunch, 2 units at dinner if eats whole meal Metformin 2-500 mg once daily Humalog Sliding Scale: If blood sugar 250-300 give 1 extra unit humalog SQ at breakfast and dinner If blood sugar > 300 give 2 extra units at breakfast and dinner Continue current regimen. They will continue to fax her blood sugar readings every 2 weeks and willmake adjustments accordingly. Continue current dose of levothyroxine. Will recheck TFTs prior to next appointment in 6 months 2. Education: Reviewed ABCs of diabetes management (respective goals in parentheses): A1C (7.0-8.0), blood pressure (<130/80), and cholesterol (LDL <100). 3. Compliance at present is estimated to be good. Efforts to improve compliance (if necessary) willbe directed at regular blood sugar monitorin times daily. 4. Follow up: 12 months 5. Record blood sugar readings as instructed. Call if BG consistently <70 or >250. [phone] Check blood sugar 3 times daily. 6. Bring blood sugar meter to follow up appointment. Orders Placed This Encounter Procedures Comprehensive Metabolic Panel Hemoglobin A1c TSH T4, Free CBC and Differential Lipid Panel Electronically Signed by: Kaykay Bess CNP 02/27/20 3:04 PM documented in this encounter Medications Administered Section Active Administered Medications - up to 3 most recent administrations Medication Order MAR Action Action Date Dose Rate Site fluorescein-benoxinate 0.25-0.4 % 1 Drop (FLURESS) 1 Drop, BOTH EYES, DIRECTED, Starting on Delilah 11/07/21 at 1000, Until Delilah 11/07/21 at 2159, Administer for applanation tonometry. In the event of a Fluress shortage, administer [place]-Fluor 1 drop into both eyes as directed for applanation tonometry Given 11/07/2021 10:00 AM EDT 1 Drop Chief Complaint and Reason for Visit Chief Complaint 6 M FU (w/Yennifer hobson) Reason for Visit Hypertension Hypothyroidism Osteoporosis Type 2 diabetes mellitus Chief Complaint 6 M FU (w/Yennifer hobson) OSTEO Reason for Visit Hypertension Hypothyroidism Osteoporosis Type 2 diabetes mellitus Chief Complaint OSTEO yearly LABWORK Reason for Visit Flu vaccine need Hypertension Intellectual disability Osteoporosis Type 2 diabetes mellitus Chief Complaint [facility] Reason for Visit Flu vaccine need Hypertension Intellectual disability Osteoporosis Type 2 diabetes mellitus Cerebral palsy Hypoxemia Acute metabolic encephalopathy Chief Complaint ER FU - [place] [facility] CEREBRAL PALSY 6 M FU Reason for Visit Cerebral palsy Hypoxemia Acute metabolic encephalopathy Epilepsy Vitamin d deficiency Cerebral palsy Altered mental status Hypertension Intellectual disability Osteoporosis Type 2 diabetes mellitus Chief Complaint CEREBRAL PALSY 6 M FU EPILEPSY Reason for Visit Epilepsy Vitamin d deficiency Cerebral palsy Altered mental status Hypertension Intellectual disability Osteoporosis Type 2 diabetes mellitus Chief Complaint CEREBRAL PALSY 6 M FU EPILEPSY SCREENING Reason for Visit Epilepsy Vitamin d deficiency Cerebral palsy Altered mental status Hypertension Intellectual disability Osteoporosis Type 2 diabetes mellitus Chief Complaint Admit Date 1 Y FU January 31, 2025 10:3 3am Reason for Visit Admit Date Epilepsy January 31, 2025 10:3 3am Chief Complaint Admit Date 1 Y FU January 31, 2025 10:3 3am hypertension March 18, 2025 2:0 0pm Reason for Visit Admit Date Epilepsy January 31, 2025 10:3 3am Vitamin d deficiency January 31, 2025 10: 33am Reason for Referral Specialty Diagnoses / Procedures Referred By Contac t Referred To Contact Cruz Brown MD [address] [place] [address] Referral ID Status Reason Start Date Expiration Date V isits Requested Visits Authorized [id number] Authorized 10/05/2023 10/04/2024 1 1 Specialty Diagnoses / Procedures Referred By Contac t Referred To Contact Gastroenterology Diagnoses Positive colorectal cancer screening using Cologuard test Procedures Colonoscopy Screening; High Risk Patient ID COLONOSCOPY FLX DX W/COLLJ SPEC WHEN PFRMD ID COLON CA SCRN NOT HI RSK IND ID COLORECTAL SCRN; HI RISK IND ID COLONOSCOPY W/BIOPSY SINGLE/MULTIPLE ID COLSC FLX W/RMVL OF TUMOR POLYP LESION SNARE TQ ID COLSC FLX W/REMOVAL LESION BY HOT BX FORCEPS Clraa Jones, DO [address] [facility], [address] [address] Referral ID Status Reason Start Date Expiration Date V isits Requested Visits Authorized [id number] Authorized 07/21/2023 07/20/2024 1 1 Additional Source Comments INFORMATION SOURCE (unrecogn ized section and content) DATE CREATED AUTHOR 09/29/2018 [facility] DATE CREATED AUTHOR AUTHOR'S ORGANIZ ATION 01/08/2019 [facility] DATE CREATED AUTHOR AUTHOR'S ORGANIZ ATION 03/03/2022 [facility] DATE CREATED AUTHOR AUTHOR'S ORGANIZ ATION 02/15/2023 [facility] DATE CREATED AUTHOR AUTHOR'S ORGANIZ ATION 03/21/2024 [facility] DATE CREATED AUTHOR AUTHOR'S ORGANIZ ATION 04/25/2024 [facility] DATE CREATED AUTHOR AUTHOR'S ORGANIZ ATION 09/11/2024 [facility] DATE CREATED AUTHOR AUTHOR'S ORGANIZ ATION 09/18/2024 [facility] DATE CREATED AUTHOR AUTHOR'S ORGANIZ ATION 10/14/2024 [facility] DATE CREATED AUTHOR AUTHOR'S ORGANIZ ATION 11/07/2024 [facility] DATE CREATED AUTHOR AUTHOR'S ORGANIZ ATION 11/25/2024 [facility] DATE CREATED AUTHOR AUTHOR'S ORGANIZ ATION 12/22/2024 [facility] DATE CREATED AUTHOR AUTHOR'S ORGANIZ ATION 12/28/2024 [facility] DATE CREATED AUTHOR AUTHOR'S ORGANIZ ATION 02/01/2025 [facility] DATE CREATED AUTHOR AUTHOR'S ORGANIZ ATION 02/19/2025 [facility] Reason for Visit (unrecogniz ed section and content) Reason Comments Diabetes Mellitus Reason Comments Follow-up Diabetic and thyroid follow up. Here with her care provider today. Reason Comments Diabetes Mellitus Thyroid Problem Reason Comments Diabetes Cataract Evaluation Reason Comments Thyroid Problem Reason Comments Diabetic Foot Exam Diabetic foot check and nail care. Reason Comments Nail Care Nail care Diabetic Foot Exam Pt roustabout states pt is doing good and his blood sugar was good today. Reason Comments Diabetes Mellitus Gap Closure (Health Maintenance) Diabeti c Eye Exam Never doneUrine Microalbumin Never doneFoot Exam due on 03/11/2022 Reason Comments Nail Care Nail care. 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 Reason Comments Nail Care Specialty Diagnoses / Procedures Referred By Leslie t Referred To Contact Gastroenterology Diagnoses Positive colorectal cancer screening using Cologuard test Procedures Colonoscopy Screening; High Risk Patient ID COLONOSCOPY FLX DX W/COLLJ SPEC WHEN PFRMD ID COLON CA SCRN NOT HI RSK IND ID COLORECTAL SCRN; HI RISK IND ID COLONOSCOPY W/BIOPSY SINGLE/MULTIPLE ID COLSC FLX W/RMVL OF TUMOR POLYP LESION SNARE TQ ID COLSC FLX W/REMOVAL LESION BY HOT BX FORCEPS Clara Jones, DO [address] [facility], [place] [address] [id number] Referral ID Status Reason Start Date Expiration Date V isits Requested Visits Authorized [id number] Authorized 07/21/2023 07/20/2024 1 1 Reason Comments Diabetes Cataract Reason Comments Weight Loss Concerns with 8-9 po und weight loss in the last 3 months Reason Comments Nail Care Last A1C unknown Reason Comments Thrush dehydrated Reason Comments Nail Care Patient presents for diabetic nail care. Last A1C 6.[address] to look at patient's left great toenail. Caregiver not sure if patient had injury to nail. Reason Comments Diabetes Mellitus Diabetic Eye Exam Ne shahbaz doneUrine Microalbumin Never doneDiabetic Foot Exam due on 03/11/2022 Reason Comments Hospital Follow-up [place] discharge; G-TUBE placement Reason Comments Nail Care Diabetic nail care. Last A1C was 6.0 on 06/17/2024. Reason Comments Follow-up 6 week follow up Specialty Diagnoses / Procedures Referred By Leslie us Referred To Contact Primary Care Procedures Follow Up In Primary Care - Established Shanda Huizar, DO [address] [facility] [place] [address] Phone: tel: fax: Referral ID Status Reason Start Date Expiration Date V isits Requested Visits Authorized [id number] Authorized 07/16/2023 07/15/2024 1 1 Reason Comments ER Follow-up Hypotension Reason Comments Altered Mental Status Brought to ED per [facility] squad from [facility] home. Pt is normally nonverbal, but staff reports that she is altered this am. Keeps eyes closed and doesn't giggle or acknowledge their questions. EKG done at Specialty Diagnoses / Procedures Referred By Leslie us Referred To Contact Diagnoses Hypercalcemia Lactic acidosis Hypernatremia Severe dehydration Altered mental status, unspecified altered mental status type Procedures . Jorge Roberts MD [address] [place] [address] [facility] [address] [place] [phone] Referral ID Status Reason Start Date Expiration Date Visits Re quested Visits Authorized [id number] 1 1 Reason Comments Oral Swelling [facility] tongue swelling since 10pm last night. EMS gave 50mg benadryl IM at 0615. Pt is currently protecting her own airway. SpO2 95% on RA Specialty Diagnoses / Procedures Referred By Contananya t Referred To Contact Diagnoses Hyponatremia Angioedema of tongue Procedures IP Admission Jorge Roberts MD [address] [place] [address] Phone: tel: fax: [facility] [address] [place], [place] [phone] Phone: tel: Referral ID Status Reason Start Date Expiration Date Visits Re quested Visits Authorized [id number] 1 1 Reason Comments Hospital Follow-up Reason Comments Establish Care Wouldlike to discuss latest ER trip and sodium levels Reason Comments Follow-up F/U on hyponatremia and HTN Reason Comments Nail Care diab nail care/A1C-6 on 06/27/24 Reason Comments Follow-up 4 week f/u Reason Onset Date Comments Medication Refill 11/16/2024 Reason Comments Follow-up Peg tube check. Orig inal placed on 04/22/2024 and had not been replaced since. Patient does not have any issues with peg receives everything through PEG but offered a pleasure tray at lunch time with pureed foods. Reason Comments Follow-up Reason Comments Nail Care diab nail care/A1C 6 on 06/27/24. Reason Onset Date Comments Medication Refill 02/07/2025 Source Comments (unrecognize d section and content) In the event this informatio n is protected by the Federal Confidentiality of Alcohol and Drug Abuse Patient Records regulations: The Federal rules restrict any use of the information to criminally investigate or prosecute any alcohol or drug abuse patient.[facility] RehabilitationIn the event this information is protected by the Federal Confidentiality of Alcohol and Drug Abuse Patient Records regulations: The Federal rules restrict any use of the information to criminally investigate or prosecute any alcohol or drug abuse patient.[facility] RehabilitationIn the event this information is protected by the Federal Confidentiality of Alcohol and Drug Abuse Patient Records regulations: The Federal rules restrict any use of the information to criminally investigate or prosecute any alcohol or drug abuse patient.[facility] RehabilitationIn the event this information is protected by the Federal Confidentiality of Alcohol and Drug Abuse Patient Records regulations: The Federal rules restrict any use of the information to criminally investigate or prosecute any alcohol or drug abuse patient.[facility] RehabilitationIn the event this information is protected by the Federal Confidentiality of Alcohol and Drug Abuse Patient Records regulations: The Federal rules restrict any use of the information to criminally investigate or prosecute any alcohol or drug abuse patient.[facility] RehabilitationIn the event this information is protected by the Federal Confidentiality of Alcohol and Drug Abuse Patient Records regulations: The Federal rules restrict any use of the information to criminally investigate or prosecute any alcohol or drug abuse patient.[facility] RehabilitationIn the event this information is protected by the Federal Confidentiality of Alcohol and Drug Abuse Patient Records regulations: The Federal rules restrict any use of the information to criminally investigate or prosecute any alcohol or drug abuse patient.[facility] Care Teams (unrecognized sec tion and content) Chief Technician X Ray Relationship Specialty Start Date End Date Goldie Mobley MD [address] [place] [address] PCP - General Internal Medicine 10/23/20 Chief Technician X Ray Relationship Specialty Start Date End Date Goldie Mobley MD [address] [place], [place] [id number] PCP - General Internal Medicine 02/27/20 Chief Technician X Ray Relationship Specialty Start Date End Date Goldie Mobley MD [address] [facility], [place] [address] [phone] PCP - General Internal Medicine 02/27/20 Team Status: Active Member Role Status Dates Dr. Goldie Mobley MD Primary Care Provider Active Team Status: Inactive Member Role Status Dates Dr. Goldie Mobley MD Primary Care P rovider, Attending Provider, Referring Provider Active Team Status: Inactive Member Role Status Dates Dr. Goldie Mobley MD Primary Care Provider, Refer ring Provider Active BALDEMAR Sol Attending Provider Active Team Status: Inactive Member Role Status Dates Dr. Goldie Mobley MD Primary Care Provider, Atten ding Provider Active Team Status: Inactive Member Role Status Dates Dr. Goldie Mobley MD Primary Care Provider Active BALDEMAR Sol Attending Provider, Referring Pro vider Active Chief Technician X Ray Relationship Specialty Start Date End Date Goldie Mobley MD [address] [place] [address] PCP - General Internal Medicine 10/23/20 Team Status: Inactive Member Role Status Dates Dr. Goldie Mobley MD Primary Care Provider, Refer ring Provider Active Dr. Cedrick Alejo MD Attending Provider Active Team Status: Inactive Member Role Status Dates Dr. Goldie Mobley MD Primary Care Provider Active Dr. Cedrick Alejo MD Attending Provider, Referring Provider Active Chief Technician X Ray Relationship Specialty Start Date End Date Goldie Mobley MD [address] [facility] [place] [place] [address] PCP - General Internal Medicine 02/27/20 Chief Technician X Ray Relationship Specialty Start Date End Date Goldie Mobley MD [address] [facility], [place] [address] [phone] PCP - General Internal Medicine 02/27/20 Chief Technician X Ray Relationship Specialty Start Date End Date Shanda Huizar DO [address] [facility] [place] [address] PCP - General Internal Medicine 07/16/23 07/27/23 Chief Technician X Ray Relationship Specialty Start Date End Date Goldie Mobley MD [address] [place] [address] PCP - General Internal Medicine 02/27/20 Chief Technician X Ray Relationship Specialty Start Date End Date Shanda Huizar DO [address] [facility] [place] [address] PCP - General Internal Medicine 07/28/23 Chief Technician X Ray Relationship Specialty Start Date End Date Shanda Huizar DO [address] [facility] [place] [address] PCP - General Internal Medicine 11/18/23 Chief Technician X Ray Relationship Specialty Start Date End Date Shanda Huizar DO [address] [facility] [place] [address] PCP - General Internal Medicine 07/28/23 Chief Technician X Ray Relationship Specialty Start Date End Date Shanda Huizar DO [address] [facility] [place] [address] PCP - General Internal Medicine 07/28/23 Chief Technician X Ray Relationship Specialty Start Date End Date Goldie Mobley MD [address] [place] [address] PCP - General Internal Medicine 02/27/20 Chief Technician X Ray Relationship Specialty Start Date End Date Oberhauser, Shanda L, DO [address] [facility] [place] [address] PCP - General Internal Medicine 11/18/23 Chief Technician X Ray Relationship Specialty Start Date End Date Shanda Huizar DO [address] [facility] [place] [address] PCP - General Internal Medicine 07/28/23 Chief Technician X Ray Relationship Specialty Start Date End Date Shanda Huizar DO [address] [facility] [place] [address] PCP - General Internal Medicine 07/28/23 Chief Technician X Ray Relationship Specialty Start Date End Date Shanda Huizar DO [address] [facility] [place] [address] PCP - General Internal Medicine 07/28/23 Chief Technician X Ray Relationship Specialty Start Date End Date Shanda Huizar DO [address] [facility] [place] [address] PCP - General Internal Medicine 07/28/23 Chief Technician X Ray Relationship Specialty Start Date End Date Shanda Huizar DO [address] [facility] [place] [address] PCP - General Internal Medicine 07/28/23 Shanda Huizar DO [address] [facility] [place] [address] PCP - [facility] Attributed Provider 02/08/24 Chief Technician X Ray Relationship Specialty Start Date End Date Shanda Huizar DO [address] [facility] [place] [address] PCP - General Internal Medicine 07/28/23 Shanda Huizar DO [address] [facility] [place] [address] PCP - [facility] Attributed Provider 02/08/24 Chief Technician X Ray Relationship Specialty Start Date End Date Shanda Huizar DO [address] [facility] [place] [address] PCP - General Internal Medicine 07/28/23 Shanda Huizar DO [address] [facility] [place] [address] PCP - [facility] Attributed Provider 02/08/24 Mansi Cheng, air route traffic controllerCyber Intelligence Analyst 09/02/24 Chief Technician X Ray Relationship Specialty Start Date End Date Tremayne Andrade DO [facility] [address] [address] PCP - General Family Medicine 09/19/24 Chief Technician X Ray Relationship Specialty Start Date End Date Tremayne Andrade DO [facility] [address] [address] PCP - General Family Medicine 09/19/24 Chief Technician X Ray Relationship Specialty Start Date End Date Tremayne Andrade DO [facility] [address] [address] PCP - General Family Medicine 09/19/24 Chief Technician X Ray Relationship Specialty Start Date End Date Tremayne Andrade DO [address] [address] PCP - General Family Medicine 09/19/24 Chief Technician X Ray Relationship Specialty Start Date End Date Tremayne Andrade DO [address] [address] PCP - General Family Medicine 09/19/24 Chief Technician X Ray Relationship Specialty Start Date End Date Tremayne Andrade DO [address] [place] [address] PCP - General Family Medicine 09/19/24 Donald Hernandez MD [address] [place] [address] Consulting Physician Nephrology 10/27/24 Chief Technician X Ray Relationship Specialty Start Date End Date Tremayne Andrade DO [address] [place] [address] PCP - General Family Medicine 09/19/24 Donald Hernandez MD [address] [place] [address] Consulting Physician Nephrology 10/27/24 Chief Technician X Ray Relationship Specialty Start Date End Date Tremayne Andrade DO [facility] [address] [address] PCP - General Family Medicine 09/19/24 Donald Hernandez MD [address] [place] [address] Consulting Physician Nephrology 10/27/24 Chief Technician X Ray Relationship Specialty Start Date End Date Kip, Tremayne, DO [facility] [place] [address] PCP - General Family Medicine 11/23/24 Chief Technician X Ray Relationship Specialty Start Date End Date Tremayne Andrade DO [facility] [address] [address] PCP - General Family Medicine 09/19/24 Donald Hernandez MD [address] [place] [address] Consulting Physician Nephrology 10/27/24 Chief Technician X Ray Relationship Specialty Start Date End Date Shanda Huizar DO [address] [place] [address] PCP - [facility] Attributed Provider 02/08/24 Mansi Cheng, RN Desk Clerks SupervisorCyber Intelligence Analyst 09/02/24 Chief Technician X Ray Relationship Specialty Start Date End Date Tremayne Andrade DO [address] [place], [place] [phone] PCP - General Family Medicine 09/19/24 Donald Hernandez MD [address] [place] [address] Consulting Physician Nephrology 10/27/24 Chief Technician X Ray Relationship Specialty Start Date End Date Shanda Huizar DO [address] [place] [address] PCP - [facility] Attributed Provider 02/08/24 Tremayne Andrade DO [facility] [address] [address] PCP - General Family Medicine 12/26/24 Chief Technician X Ray Relationship Specialty Start Date End Date Tremayne Andrade DO [address] [place] [address] PCP - General Family Medicine 09/19/24 Donald Hernandez MD [address] [place] [address] Consulting Physician Nephrology 10/27/24 Chief Technician X Ray Relationship Specialty Start Date End Date Tremayne Andrade DO [address] [place] [address] PCP - General Family Medicine 09/19/24 Donald Hernandez MD [address] [place] [address] Consulting Physician Nephrology 10/27/24 Team Status: Active Member Role Status Dates Dr. Shanda Huizar DO Primary Care Provider Active Team Status: Inactive Member Role Status Dates Dr. Goldie Mobley MD Referring Provider Active Start: January 31, 2025 End: January 31, 2025 Dr. Cedrick Alejo MD Attending Provider Active Start: January 31, 2025 End: January 31, 2025 Dr. Shanda Huizar DO Primary Care Provider Active Start: January 31, 2025 End: January 31, 2025 Chief Technician X Ray Relationship Specialty Start Date End Date Tremayne Andrade DO [address] [place] [address] PCP - General Family Medicine 09/19/24 Donald Hernandez MD [address] [place] [address] Consulting Physician Nephrology 10/27/24 Team Status: Active Member Role/Relationship Status Dates Dr. Shanda Huizar DO Primary Care Provider Active Team Status: Inactive Member Role/Relationship Status Dates Dr. Goldie Mobley MD Referring Provider Active Start: January 31, 2025 End: January 31, 2025 Dr. Cedrick Alejo MD Attending Provider Active Start: January 31, 2025 End: January 31, 2025 Dr. Shanda Huizar DO Primary Care Provider Active Start: January 31, 2025 End: January 31, 2025 Team Status: Inactive Member Role/Relationship Status Dates Dr. Shanda Huizar DO Primary Care Provider Active Start: March 18, 2025 End: March 18, 2025 Ed Physician Provider Emergency Provider Active Start: March 18, 2025 End: March 18, 2025 Goals (unrecognized section and content) Goals may be documented in a n alternate sectionGoals may be documented in an alternate sectionGoals may be documented in an alternate sectionGoals may be documented in an alternate sectionGoals may be documented in an alternate sectionGoals may be documented in an alternate sectionGoals may be documented in an alternate sectionGoals may be documented in an alternate sectionGoals may be documented in an alternate sectionGoals may be documented in an alternate section <item><item> Privacy Markings (unrecogniz ed section and content) Section Author: Katie Barry PROHIBITION ON REDISCLOSURE OF CONFIDENTIAL INFORMATION This notice accompanies a disclosure of information concerning a client made to you with the consent of such client. Section Author: Katie Barry PROHIBITION ON REDISCLOSURE OF CONFIDENTIAL INFORMATION This notice accompanies a disclosure of information concerning a client made to you with the consent of such client. Inactive Administered Medications - up to 3 most recent administrations Administered Medications (un recognized section and content) Medication Order MAR Action Action Date Dose Rate Site fluorescein-benoxinate 0.3-0.4 % 1 Drop (FLURESS) 1 Drop, BOTH EYES, DIRECTED, Starting on Thu11/18/23 at 1130, Until Thu11/18/23 at 2329, Administer for applanation tonometry. In the event of a Fluress shortage, administer [place]-Fluor 1 drop into both eyes as directed for applanation tonometry Given 11/18/2023 11:30 AM EDT 1 Drop tropicamide 1 % 1 Drop (MYDRIACYL) 1 Drop, BOTH EYES, DIRECTED, Starting on Thu11/18/23 at 1130, Until Thu11/18/23 at 2329, Administer for dilation Given 11/18/2023 11:30 AM EDT 1 Drop Scheduled Active and Recently Administ ered Medications (unrecognized section and content) Medication Order 04/23/2024 04/24/2024 04/25/2024 ARIPiprazole (Abilify) tablet 10 mg 10 mg, oral, Nightly, First dose on Thu04/19/24 at 2100 2135 (Given - Provider: Rosangela Hernandez RN) 2033 (Given - Provider: Xiomy Blackmon RN) 2099 (Due) carBAMazepine (TEGretol) tablet 100 mg 100 mg, oral, Nightly, First dose on Thu04/19/24 at 2100 2134 (Given - Provider: Rosangela Hernandez RN) 2033 (Given - Provider: Xiomy Blackmon RN) 2099 (Due) docusate sodium (Colace) oral liquid 100 mg 100 mg, oral, Daily, First dose on Thu04/23/24 at 1030 1200 (Given - Provider: Lesley Pollard RN) 0939 (Given - Provider: Lesley Pollard RN) 0940 (Given - Provider: Susanna Valdes RN) enoxaparin (Lovenox) syringe 30 mg 30 mg, subcutaneous, Every 24 hours, First dose on Thu04/18/24 at 2100, Indications: deep vein thrombosis prevention 2133 (Given - Provider: Rosangela Hernandez RN) 2032 (Given - Provider: Xiomy Blackmon, PAMELLA) 2099 (Due) lamoTRIgine (LaMICtal) tablet 50 mg 50 mg, oral, 2 times daily, First dose on Thu04/18/24 at 2100 1050 (Given - Provider: Lesley Pollard RN - Comment: work flow)2134 (Given - Provider: Rosangela Hernandez RN) 0939 (Given - Provider: Lesley Pollard RN)2033 (Given - Provider: Xiomy Blackmon, PAMELLA) 0940 (Given - Provider: Susanna Valdes RN)2099 (Due) levothyroxine (Synthroid, Levoxyl) tablet 50 mcg 50 mcg, oral, Daily, First dose on Thu04/19/24 at 0600 0656 (Given - Provider: Courtney Ruiz RN) 0633 (Given - Provider: Rosangela Hernandez RN) 0622 (Given - Provider: Xiomy Blackmon, PAMELLA) mupirocin (Bactroban) 2 % ointment Topical, 2 times daily, First dose on Thu04/18/24 at 1415, Apply to skin 1130 (Given - Provider: Lesley Pollard RN - Comment: work flow)2099 (Not Given - Provider: Rosangela Hernandez RN - Reason: Medication not available) 1119 (Given - Provider: Lesley Pollard RN - Comment: work flow)2033 (Given - Provider: Xiomy Blackmon, PAMELLA) 0940 (Given - Provider: Susanna Valdes RN)2099 (Due) polyethylene glycol (Glycolax, Miralax) packet 17 g 17 g, oral, Daily, First dose on Thu04/18/24 at 1415, Bowel Regimen - for prevention of constipation. 1050 (Given - Provider: Lesley Pollard RN - Comment: work flow) 0939 (Given - Provider: Lesley Pollard RN) 0940 (Given - Provider: Susanna Valdes RN) pravastatin (Pravachol) tablet 20 mg 20 mg, oral, Nightly, First dose on Thu04/18/24 at 2100 2134 (Given - Provider: Rosangela Hernandez, PAMELLA) 2034 (Given - Provider: Xiomy Blackmon RN) 2100 (Due) Continuous Medication Order 04/23/2024 04/24/2024 04/25/2024 sodium chloride 0.45 % infusion 75 mL/hr, intravenous, Continuous, Starting on Thu04/20/24 at 1015 0151 (Rate/Dose Verify - Provider: Livia Irene RN)0418 (Rate/Dose Verify - Provider: Courtney Ruiz RN)1152 (Rate/Dose Verify - Provider: Lesley Pollard RN)1222 (New Bag - Provider: Lesley Pollard RN) 0117 (New Bag - Provider: Rosangela Hernandez RN)1900 (Rate/Dose Verify - Provider: Xiomy Blackmon RN)2000 (Rate/Dose Verify - Provider: Xiomy Blackmon RN)2100 (Rate/Dose Verify - Provider: Xiomy Blackmon RN)2200 (Rate/Dose Verify - Provider: Xiomy Blackmon RN)2300 (Rate/Dose Verify - Provider: Xiomy Blackmon RN) 0000 (Rate/Dose Verify - Provider: Xiomy Blackmon RN)0100 (Rate/Dose Verify - Provider: Xiomy Blackmon RN)0200 (Rate/Dose Verify - Provider: Xiomy Blackmon RN)0308 (New Bag - Provider: Xiomy Blackmon RN)0400 (Rate/Dose Verify - Provider: Xiomy Blackmon RN)0500 (Rate/Dose Verify - Provider: Xiomy Blackmon RN)0600 (Rate/Dose Verify - Provider: Xiomy Blackmon RN)0939 (Rate/Dose Verify - Provider: Susanna Valdes, PAMELLA)1649 (Stopped - Provider: Susanna Valdes, PAMELLA) PRN Medication Order 04/23/2024 04/24/2024 04/25/2024 acetaminophen (Tylenol) oral liquid 650 mg(Linked Group 1) 650 mg, nasogastric tube, Every 4 hours PRN, fever (temp greater than 38.0 C), greater than or equal to 38 C, Starting on Thu04/18/24 at 1347 acetaminophen (Tylenol) oral liquid 650 mg(Linked Group 2) 650 mg, oral, Every 4 hours PRN, pain mild (1-3), first line, Starting on Thu04/18/24 at 1347, Give oral liquid per feeding tube if present or if patient prefers oral liquid over tablets. acetaminophen (Tylenol) suppository 650 mg(Linked Group 1) 650 mg, rectal, Every 4 hours PRN, fever (temp greater than 38.0 C), greater than or equal to 38 C, Starting on Thu04/18/24 at 1347, If ordered PRN for pain, nurse is permitted to administer this medication for higher pain scores based on patient preference? Yes acetaminophen (Tylenol) suppository 650 mg(Linked Group 2) 650 mg, rectal, Every 4 hours PRN, pain mild (1-3), first line, Starting on Thu04/18/24 at 1347, Give rectally if unable to administer by mouth or feeding tube., If ordered PRN for pain, nurse is permitted to administer this medication for higher pain scores based on patient preference? Yes acetaminophen (Tylenol) tablet 650 mg(Linked Group 1) 650 mg, oral, Every 4 hours PRN, fever (temp greater than 38.0 C), greater than or equal to 38 C, Starting on Thu04/18/24 at 1347, If ordered PRN for pain, nurse is permitted to administer this medication for higher pain scores based on patient preference? Yes acetaminophen (Tylenol) tablet 650 mg(Linked Group 2) 650 mg, oral, Every 4 hours PRN, pain mild (1-3), first line, Starting on Thu04/18/24 at 1347, Administer tablet or oral liquid per patient preference., If ordered PRN for pain, nurse is permitted to administer this medication for higher pain scores based on patient preference? Yes LORazepam (Ativan) injection 1 mg 1 mg, intravenous, Administer over 5 Minutes, Every 6 hours PRN, seizures, Starting on Thu04/19/24 at 0908, Maximum rate of 2 mg/min. ondansetron (Zofran) injection 4 mg(Linked Group 3) 4 mg, intravenous, Every 8 hours PRN, nausea/vomiting, first line, Starting on Thu04/18/24 at 1347, 1st Line. Give IV if patient is unable to take orally. If inadequate response within 60 minutes, proceed to next-line agent for same PRN reason or contact provider if no further options ordered. When administering via IV Push, administer over 3-5 minutes. ondansetron ODT (Zofran-ODT) disintegrating tablet 4 mg(Linked Group 3) 4 mg, oral, Every 8 hours PRN, nausea/vomiting, first line, Starting on Thu04/18/24 at 1347, 1st Line. Use oral route first, if possible. If inadequate response within 60 minutes, proceed to next-line agent for same PRN reason or contact provider if no further options ordered. oxygen (O2) therapy (CANCELED) inhalation, Continuous PRN - O2/gases, other, Starting on Thu04/18/24 at 0929, Device: Nasal Cannula, Rate in liters per minute: 2 LPM 0655 ([employer] - Provider: Marce Cornell, [employer])1139 ([employer] - Provider: Marce Cornell, [employer])1812 ([employer] - Provider: Pili Herman, MANDY)2211 ([employer] - Provider: Pili Herman, MANDY) Linked Groups Order Group 1: acetaminophen (Tylenol) tablet 650 mgJump to med 650 mg, oral, Every 4 hours PRN, fever (temp greater than 38.0 C), greater than or equal to 38 C, Starting on Thu04/18/24 at 1347, If ordered PRN for pain, nurse is permitted to administer this medication for higher pain scores based on patient preference? Yes Or acetaminophen (Tylenol) oral liquid 650 mgJump to med 650 mg, nasogastric tube, Every 4 hours PRN, fever (temp greater than 38.0 C), greater than or equal to 38 C, Starting on Thu04/18/24 at 1347 Or acetaminophen (Tylenol) suppository 650 mgJump to med 650 mg, rectal, Every 4 hours PRN, fever (temp greater than 38.0 C), greater than or equal to 38 C, Starting on Thu04/18/24 at 1347, If ordered PRN for pain, nurse is permitted to administer this medication for higher pain scores based on patient preference? Yes Group 2: acetaminophen (Tylenol) tablet 650 mgJump to med 650 mg, oral, Every 4 hours PRN, pain mild (1-3), first line, Starting on Thu04/18/24 at 1347, Administer tablet or oral liquid per patient preference., If ordered PRN for pain, nurse is permitted to administer this medication for higher pain scores based on patient preference? Yes Or acetaminophen (Tylenol) oral liquid 650 mgJump to med 650 mg, oral, Every 4 hours PRN, pain mild (1-3), first line, Starting on Thu04/18/24 at 1347, Give oral liquid per feeding tube if present or if patient prefers oral liquid over tablets. Or acetaminophen (Tylenol) suppository 650 mgJump to med 650 mg, rectal, Every 4 hours PRN, pain mild (1-3), first line, Starting on Thu04/18/24 at 1347, Give rectally if unable to administer by mouth or feeding tube., If ordered PRN for pain, nurse is permitted to administer this medication for higher pain scores based on patient preference? Yes Group 3: ondansetron ODT (Zofran-ODT) disintegrating tablet 4 mgJump to med 4 mg, oral, Every 8 hours PRN, nausea/vomiting, first line, Starting on Thu04/18/24 at 1347, 1st Line. Use oral route first, if possible. If inadequate response within 60 minutes, proceed to next-line agent for same PRN reason or contact provider if no further options ordered. Or ondansetron (Zofran) injection 4 mgJump to med 4 mg, intravenous, Every 8 hours PRN, nausea/vomiting, first line, Starting on Thu04/18/24 at 1347, 1st Line. Give IV if patient is unable to take orally. If inadequate response within 60 minutes, proceed to next-line agent for same PRN reason or contact provider if no further options ordered. When administering via IV Push, administer over 3-5 minutes. Scheduled Medication Order 08/30/2024 08/31/2024 09/01/2024 ARIPiprazole (Abilify) tablet 10 mg 10 mg, oral, Nightly, First dose on Thu08/30/24 at 2100 2040 (Given - Provider: Twyla Ayers RN) 1828 (MAR Hold - Provider: Automatic Transfer Provider - Reason: Unreviewed Transfer Orders)1924 ([facility] Unhold - Provider: Jorge Roberts MD)212 (Given - Provider: Precious Bishop RN) 2100 (Due) carBAMazepine (TEGretol) tablet 100 mg 100 mg, oral, Daily, First dose on Thu08/30/24 at 1215 1639 (Given - Provider: Gabriele Jacob RN) 1325 (Given - Provider: Gabriele Jacob RN)182 ([facility] Hold - Provider: Automatic Transfer Provider - Reason: Unreviewed Transfer Orders)1924 ([facility] Unhold - Provider: Jorge Roberts MD) 1013 (Given - Provider: Katherine Lion, PAMELLA) dexAMETHasone (PF) (Decadron) injection 10 mg (COMPLETED) 10 mg, intravenous, Once, On Thu08/30/24 at 0645, For 1 dose 0641 (Given - Provider: Gema Amor, PAMELLA) diazePAM (Valium) tablet 2.5 mg 2.5 mg, g-tube, Daily, First dose on Thu08/30/24 at 1215 1640 (Given - Provider: Gabriele Jacob RN) 1023 (Given - Provider: Gabriele Jacob RN)182 ([facility] Hold - Provider: Automatic Transfer Provider - Reason: Unreviewed Transfer Orders)1924 ([facility] Unhold - Provider: Jorge Roberts MD) 1011 (Given - Provider: Katherine Lion, PAMELLA) docusate sodium (Colace) oral liquid 50 mg 50 mg, g-tube, Daily, First dose on Thu08/30/24 at 1215 1638 (Given - Provider: Gabriele Jacob RN) 1325 (Given - Provider: Gabriele Jacob RN)1828 ([facility] Hold - Provider: Automatic Transfer Provider - Reason: Unreviewed Transfer Orders)1924 ([facility] Unhold - Provider: Jorge Roberts MD) 1010 (Given - Provider: Katherine Lion, PAMELLA) enoxaparin (Lovenox) syringe 40 mg 40 mg, subcutaneous, Every 24 hours, First dose on Thu08/30/24 at 1215, Indications: deep vein thrombosis prevention 1639 (Given - Provider: Gabriele Jacob RN) 1325 (Given - Provider: Gabriele Jacob RN)182 (OCT Hold - Provider: Automatic Transfer Provider - Reason: Unreviewed Transfer Orders)192 ([facility] Unhold - Provider: Jorge Roberts MD) 1326 (Given - Provider: Katherine Lion, PAMELLA - Comment: nursing workflow) famotidine PF (Pepcid) injection 20 mg 20 mg, intravenous, Administer over 2 Minutes, Every 12 hours scheduled, First dose on Thu08/30/24 at 1200 1641 (Given - Provider: Gabriele Jacob RN)2040 (Not Given - Provider: Twyla Ayers RN - Reason: Other - Comment: Previously given at 1641, per pharmacy hold this dose) 1023 (Given - Provider: Gabriele Jacob RN)182 ([facility] Hold - Provider: Automatic Transfer Provider - Reason: Unreviewed Transfer Orders)1924 ([facility] Unhold - Provider: Jorge Roberts MD)212 (Given - Provider: Precious Bishop RN) 101 (Given - Provider: Katherine Lion, PAMELLA)2100 (Due) famotidine PF (Pepcid) injection 40 mg (COMPLETED) 40 mg, intravenous, Administer over 2 Minutes, Once, On Thu08/30/24 at 0645, For 1 dose 0641 (Given - Provider: Gema Amor, RN) fluticasone (Flonase) nasal spray 2 spray 2 spray, Each Nostril, Daily, First dose on Thu08/30/24 at 1200, Shake gently. Before first use, prime pump (press 6 times until fine spray appears). After use, clean tip and replace cap. 1640 (Given - Provider: Gabriele Jacob RN) 1033 (Not Given - Provider: Gabriele Jacob RN - Reason: Patient/family refused)182 (OCT Hold - Provider: Automatic Transfer Provider - Reason: Unreviewed Transfer Orders)192 ([facility] Unhold - Provider: Jorge Roberts MD) 1010 (Given - Provider: Katherine Lion, PAMELLA) guaiFENesin (Robitussin) 100 mg/5 mL syrup 100 mg 100 mg, g-tube, Daily, First dose on Thu08/30/24 at 1215 1638 (Given - Provider: Gabriele Jacob RN) 1023 (Given - Provider: Gabriele Jacob RN)1828 (OCT Hold - Provider: Automatic Transfer Provider - Reason: Unreviewed Transfer Orders)1924 ([facility] Unhold - Provider: Jorge Roberts MD) 1009 (Given - Provider: Katherine Lion, PAMELLA) icatibant (Firazyr) injection 30 mg (COMPLETED) 30 mg, subcutaneous, Once, On Thu08/30/24 at 0645, For 1 dose, Inject into the abdomen over 30 seconds or more, using the 25-gauge needle provided. Inject 2 to 4 inches below belly button and away from any scars. Do not inject into an area that is bruised, swollen, or painful. Hazardous Drug - Double Nitrile Glove, Gown 0701 (Given - Provider: Yung Haas RN) lamoTRIgine (LaMICtal) tablet 50 mg 50 mg, oral, 2 times daily, First dose on Thu08/30/24 at 1215 1640 (Given - Provider: Gabriele Jacob RN)2040 (Not Given - Provider: Twyla Ayers RN - Reason: Other - Comment: Last given at 1641, retimed per pharmacy) 0540 (Given - Provider: Twyla Ayers RN)1828 (OCT Hold - Provider: Automatic Transfer Provider - Reason: Unreviewed Transfer Orders)1924 ([facility] Unhold - Provider: Jorge Roberts MD)2129 (Given - Provider: Precious Bishop RN) 0515 (Given - Provider: Precious Bishop RN)1800 (Due - Provider: Efrain Farias) levothyroxine (Synthroid, Levoxyl) tablet 50 mcg 50 mcg, g-tube, Daily, First dose on Thu08/30/24 at 1215 1810 (Not Given - Provider: Gabriele Jacob RN - Reason: Other) 0540 (Given - Provider: Twyla Ayers RN)1828 (OCT Hold - Provider: Automatic Transfer Provider - Reason: Unreviewed Transfer Orders)192 ([facility] Unhold - Provider: Jorge Roberts MD) 0515 (Given - Provider: Precious Bishop RN) methylPREDNISolone sod succinate (SOLU-Medrol) 40 mg/mL injection 40 mg (CANCELED) 40 mg, intravenous, Every 6 hours, First dose on Thu08/30/24 at 1200 1639 (Given - Provider: Gabriele Jacob RN)1854 (Not Given - Provider: Gabriele Jacob RN - Reason: Other - Comment: too close to previous dose) 0026 (Given - Provider: Twyla Ayers RN)0540 (Given - Provider: Twyla Ayers RN)1325 (Given - Provider: Gabriele Jacob RN)182 (MAR Hold - Provider: Automatic Transfer Provider - Reason: Unreviewed Transfer Orders)192 ([facility] Unhold - Provider: Jorge Roberts MD) methylPREDNISolone sod succinate (SOLU-Medrol) 40 mg/mL injection 40 mg 40 mg, intravenous, 2 times daily, First dose (after last modification) on Thu09/01/24 at 0900 1011 (Given - Provider: Katherine Lion RN)2100 (Due) pravastatin (Pravachol) tablet 20 mg 20 mg, oral, Nightly, First dose on Thu08/30/24 at 2100 2040 (Given - Provider: Twyla Ayers RN) 182 (MAR Hold - Provider: Automatic Transfer Provider - Reason: Unreviewed Transfer Orders)192 ([facility] Unhold - Provider: Jorge Roberts MD)212 (Given - Provider: Precious Bishop RN) 2100 (Due) sodium chloride 0.9 % bolus 500 mL (COMPLETED) 500 mL, intravenous, at 500 mL/hr, Administer over 1 Hours, Once, On Thu08/30/24 at 0715, For 1 dose 0743 (New Bag - Provider: Samantha Dudley, RN)0759 (Stopped - Provider: Samantha Dudley, RN) sodium chloride tablet 1 g 1 g, g-tube, Daily, First dose on Thu08/30/24 at 1215 1640 (Given - Provider: Gabriele Jacob RN) 1023 (Given - Provider: Gabriele Jacob RN)1828 (MAR Hold - Provider: Automatic Transfer Provider - Reason: Unreviewed Transfer Orders)192 ([facility] Unhold - Provider: Jorge Roberts MD) 1021 (Given - Provider: Katherine Lion RN) tranexamic acid 1,000 mg in sodium chloride (iso) IV 100 mL 1,000 mg, intravenous, Administer over 10 Minutes, Once, On Thu08/30/24 at 0650, For 1 dose, Tranexamic Acid Indication: Other, Coverage: BRYANT inhibitor angioedema 0742 (Not Given - Provider: Samantha Dudley RN - Reason: See Provider Order - Comment: Per Dr. Asher to not give at this time.) 1828 ([facility] Hold - Provider: Automatic Transfer Provider - Reason: Unreviewed Transfer Orders)1925 ([facility] Unhold - Provider: Jorge Roberts MD) Continuous Medication Order 08/30/2024 08/31/2024 09/01/2024 sodium chloride 0.9% infusion (CANCELED) 125 mL/hr, intravenous, Continuous, Starting on Thu08/30/24 at 0800, For 1 day 0758 (New Bag - Provider: Samantha Dudley RN)2148 (Canceled Entry - Provider: Twyla Ayers RN) 0026 (Canceled Entry - Provider: Twyla Ayers RN) sodium chloride 0.9% infusion () 100 mL/hr, intravenous, Continuous, Starting on Thu08/30/24 at 1215, For 1 day 1850 (New Bag - Provider: Gabriele Jacob RN)1900 (Rate/Dose Verify - Provider: Twyla Ayers RN)2000 (Rate/Dose Verify - Provider: Twyla Ayers RN)2100 (Rate/Dose Verify - Provider: Twyla Ayers RN)2148 (Rate/Dose Verify - Provider: Twyla Ayers RN)2300 (Rate/Dose Verify - Provider: Twyla Ayers RN) 0000 (Rate/Dose Verify - Provider: Twyla Ayers RN)0100 (Rate/Dose Verify - Provider: Twyla Ayers RN)0200 (Rate/Dose Verify - Provider: Twyla Ayers RN)0300 (Rate/Dose Verify - Provider: Twyla Ayers RN)0441 (New Bag - Provider: Twyla Ayers RN)1446 (New Bag - Provider: Gabriele Jacob RN)2249 (Stopped - Provider: Precious Bishop RN) PRN Medication Order 08/30/2024 08/31/2024 09/01/2024 acetaminophen (Tylenol) oral liquid 650 mg(Linked Group 1) 650 mg, nasogastric tube, Every 4 hours PRN, fever (temp greater than 38.0 C), greater than or equal to 38 C, Starting on Thu08/30/24 at 1158 1827 ([facility] Hold - Provider: Automatic Transfer Provider - Reason: Unreviewed Transfer Orders)1924 ([facility] Unhold - Provider: Jorge Roberts MD) acetaminophen (Tylenol) oral liquid 650 mg(Linked Group 2) 650 mg, oral, Every 4 hours PRN, pain mild (1-3), first line, Starting on Thu08/30/24 at 1158, Give oral liquid per feeding tube if present or if patient prefers oral liquid over tablets. 1827 ([facility] Hold - Provider: Automatic Transfer Provider - Reason: Unreviewed Transfer Orders)1924 ([facility] Unhold - Provider: Jorge Roberts MD) acetaminophen (Tylenol) suppository 650 mg(Linked Group 1) 650 mg, rectal, Every 4 hours PRN, fever (temp greater than 38.0 C), greater than or equal to 38 C, Starting on Thu08/30/24 at 1158, If ordered PRN for pain, nurse is permitted to administer this medication for higher pain scores based on patient preference? Yes 1827 ([facility] Hold - Provider: Automatic Transfer Provider - Reason: Unreviewed Transfer Orders)1924 ([facility] Unhold - Provider: Jorge Roberts MD) acetaminophen (Tylenol) suppository 650 mg(Linked Group 2) 650 mg, rectal, Every 4 hours PRN, pain mild (1-3), first line, Starting on Thu08/30/24 at 1158, Give rectally if unable to administer by mouth or feeding tube., If ordered PRN for pain, nurse is permitted to administer this medication for higher pain scores based on patient preference? Yes 1827 ([facility] Hold - Provider: Automatic Transfer Provider - Reason: Unreviewed Transfer Orders)1924 ([facility] Unhold - Provider: Jorge Roberts MD) acetaminophen (Tylenol) tablet 650 mg(Linked Group 1) 650 mg, oral, Every 4 hours PRN, fever (temp greater than 38.0 C), greater than or equal to 38 C, Starting on Thu08/30/24 at 1158, If ordered PRN for pain, nurse is permitted to administer this medication for higher pain scores based on patient preference? Yes 1827 ([facility] Hold - Provider: Automatic Transfer Provider - Reason: Unreviewed Transfer Orders)1924 ([facility] Unhold - Provider: Jorge Roberts MD) acetaminophen (Tylenol) tablet 650 mg(Linked Group 2) 650 mg, oral, Every 4 hours PRN, pain mild (1-3), first line, Starting on Thu08/30/24 at 1158, Administer tablet or oral liquid per patient preference., If ordered PRN for pain, nurse is permitted to administer this medication for higher pain scores based on patient preference? Yes 1827 ([facility] Hold - Provider: Automatic Transfer Provider - Reason: Unreviewed Transfer Orders)1924 ([facility] Unhold - Provider: Jorge Roberts MD) bisacodyl (Dulcolax) suppository 10 mg 10 mg, rectal, Once as needed, constipation, first line, Starting on Thu08/30/24 at 1159, For 1 dose 1827 ([facility] Hold - Provider: Automatic Transfer Provider - Reason: Unreviewed Transfer Orders)1924 ([facility] Unhold - Provider: Jorge Roberts MD) diphenhydrAMINE (BENADryl) injection 25 mg 25 mg, intravenous, Every 6 hours PRN, itching, Starting on Thu08/30/24 at 1136, If giving IV push, max rate of 25 mg/min. 1827 ([facility] Hold - Provider: Automatic Transfer Provider - Reason: Unreviewed Transfer Orders)1924 ([facility] Unhold - Provider: Jorge Roberts MD) ipratropium-albuteroL (Duo-Neb) 0.5-2.5 mg/3 mL nebulizer solution 3 mL 3 mL, nebulization, Every 6 hours PRN, wheezing, Starting on Thu08/30/24 at 1330 0629 (Not Given - Provider: Neyda Nesbitt, [employer] - Reason: Other - Comment: 0 tx breath sounds clear and diminished in the bases)1113 (Not Given - Provider: Neyda Nesbitt, [employer] - Reason: Other - Comment: 0 tx done)1827 ([facility] Hold - Provider: Automatic Transfer Provider - Reason: Unreviewed Transfer Orders)1924 ([facility] Unhold - Provider: Jorge Roberts MD) ondansetron (Zofran) injection 4 mg(Linked Group 3) 4 mg, intravenous, Every 8 hours PRN, nausea/vomiting, first line, Starting on Thu08/30/24 at 1158, 1st Line. Give IV if patient is unable to take orally. If inadequate response within 60 minutes, proceed to next-line agent for same PRN reason or contact provider if no further options ordered. When administering via IV Push, administer over 3-5 minutes. 1827 ([facility] Hold - Provider: Automatic Transfer Provider - Reason: Unreviewed Transfer Orders)1924 ([facility] Unhold - Provider: Jorge Roberts MD) ondansetron ODT (Zofran-ODT) disintegrating tablet 4 mg(Linked Group 3) 4 mg, oral, Every 8 hours PRN, nausea/vomiting, first line, Starting on Thu08/30/24 at 1158, 1st Line. Patient should allow tablet to dissolve on tongue. Do not remove from blister pack until just before administering. If inadequate response within 60 minutes, proceed to next-line agent for same PRN reason or contact provider if no further options ordered. 1827 ([facility] Hold - Provider: Automatic Transfer Provider - Reason: Unreviewed Transfer Orders)1924 ([facility] Unhold - Provider: Jorge Roberts MD) oxygen (O2) therapy inhalation, Continuous PRN - O2/gases, other, Starting on Thu08/30/24 at 1318, Cool mist aerosol/ wean as tolerated may run on room air, Device: Aerosol mask, FIO2: Other, Custom Value: May use room air, Keep O2 Sat Above: 90% 1319 (Start - Provider: Neyda Nesbitt RRT - Comment: 2LNC sats 100% Placed on cool mist aerosol room air)1800 ([employer] - Provider: Jerry Cabrear RRT) 0200 (Start - Provider: Jerry Cabrera RRT)0629 ([employer] - Provider: Neyda Nesbitt RRT - Comment: room air)1112 ([employer] [facility] [employer] - Provider: Neyda M Arnold, [employer] - Comment: room air) 0607 ([employer] [facility] [employer] - Provider: Nolan Garcia, MANDY) No Frequency Medication Order 08/30/2024 08/31/2024 09/01/2024 sodium chloride (PF) 0.9% solution - [employer] Override Pull (COMPLETED) Starting on Thu08/30/24 at 1630, For 1 dose, Created by cabinet override 1641 (Given - Provider: Gabriele Jacob RN) sodium chloride (PF) 0.9% solution - [employer] Override Pull (COMPLETED) Starting on Thu08/31/24 at 1014, For 1 dose, Created by cabinet override 1034 (Given - Provider: Gabriele Jacob RN) Linked Groups Order Group 1: acetaminophen (Tylenol) tablet 650 mgJump to med 650 mg, oral, Every 4 hours PRN, fever (temp greater than 38.0 C), greater than or equal to 38 C, Starting on Thu08/30/24 at 1158, If ordered PRN for pain, nurse is permitted to administer this medication for higher pain scores based on patient preference? Yes Or acetaminophen (Tylenol) oral liquid 650 mgJump to med 650 mg, nasogastric tube, Every 4 hours PRN, fever (temp greater than 38.0 C), greater than or equal to 38 C, Starting on Thu08/30/24 at 1158 Or acetaminophen (Tylenol) suppository 650 mgJump to med 650 mg, rectal, Every 4 hours PRN, fever (temp greater than 38.0 C), greater than or equal to 38 C, Starting on Thu08/30/24 at 1158, If ordered PRN for pain, nurse is permitted to administer this medication for higher pain scores based on patient preference? Yes Group 2: acetaminophen (Tylenol) tablet 650 mgJump to med 650 mg, oral, Every 4 hours PRN, pain mild (1-3), first line, Starting on Thu08/30/24 at 1158, Administer tablet or oral liquid per patient preference., If ordered PRN for pain, nurse is permitted to administer this medication for higher pain scores based on patient preference? Yes Or acetaminophen (Tylenol) oral liquid 650 mgJump to med 650 mg, oral, Every 4 hours PRN, pain mild (1-3), first line, Starting on Thu08/30/24 at 1158, Give oral liquid per feeding tube if present or if patient prefers oral liquid over tablets. Or acetaminophen (Tylenol) suppository 650 mgJump to med 650 mg, rectal, Every 4 hours PRN, pain mild (1-3), first line, Starting on Thu08/30/24 at 1158, Give rectally if unable to administer by mouth or feeding tube., If ordered PRN for pain, nurse is permitted to administer this medication for higher pain scores based on patient preference? Yes Group 3: ondansetron ODT (Zofran-ODT) disintegrating tablet 4 mgJump to med 4 mg, oral, Every 8 hours PRN, nausea/vomiting, first line, Starting on Thu08/30/24 at 1158, 1st Line. Patient should allow tablet to dissolve on tongue. Do not remove from blister pack until just before administering. If inadequate response within 60 minutes, proceed to next-line agent for same PRN reason or contact provider if no further options ordered. Or ondansetron (Zofran) injection 4 mgJump to med 4 mg, intravenous, Every 8 hours PRN, nausea/vomiting, first line, Starting on Thu08/30/24 at 1158, 1st Line. Give IV if patient is unable to take orally. If inadequate response within 60 minutes, proceed to next-line agent for same PRN reason or contact provider if no further options ordered. When administering via IV Push, administer over 3-5 minutes. FOR RECORDS PERTAINING TO PATIENTS WHO ARE OR HAVE BEEN ENROLLED IN A CHEMICAL DEPENDENCY/SUBSTANCEABUSE PROGRAM, SOME INFORMATION MAY BE OMITTED. This clinical summary was aggregated from multiple sources. Caution should be exercised in using it in the provision of clinical care. This summary normalizes information from multiple sources, and as a consequence, information in this document may materially change the coding, format and clinical context of patient data. In addition, data may be omitted in some cases. CLINICAL DECISIONS SHOULD BE BASED ON THE PRIMARY CLINICAL RECORDS. [employer] provides no warranty or guarantee of the accuracy or completeness of information in this document.
== END 2025-03-18 14:33 | disposition left against medical advice (07) ==
LOC: ED 14:33
PROVIDERS: PCP Internal Medicine
DX: Z53.21 Procedure and treatment not carried out due to patient leaving prior to being seen by health care provider (principal)